=== PATIENT | female | born 1955 | race Caucasian/White ===

== ENCOUNTER → 2016-08-30 | Outpatient (CLI) | payer OTHER, BC ==
--- NOTE | 2016-08-30 16:06 | MR ---
EXAMINATION TYPE: MR shoulder RT wo con DATE OF EXAM: 08/30/2016 8:39 AM COMPARISON: NONE HISTORY: RT. shoulder pain, injury TECHNIQUE: Multiplanar, multisequence imaging of the shoulder is performed without contrast. FINDINGS: Rotator Cuff: There is fluid in the subacromial bursa and subdeltoid bursa. Some fluid appears to valentín round the supraspinatus tendon in the coronal plane. Acromioclavicular Joint: Glenohumeral Joint: Superior glenoid labrum is not well visualized. There is increased fluid adjacent . Tear should be considered. There is some thinning of the articular cartilage of the joint space com patible some osteoarthritic degenerative change. Biceps Tendon: The long head of biceps is in normal location within bicipital groove. Fluid appears t o surround the long head of the biceps tendon. Correlate for a moderate tendinosis of the long head o f the biceps tendon. Bone marrow signal: No focal abnormal marrow signal is appreciated. The acromioclavicular junction is hypertrophied which has some downward spurring which can contribute to some impingement of the supra spinatus tendon. Other: No muscle or tendon retraction is evident. No fatty infiltration of the muscles is evident IMPRESSION: Fluid surrounding the supraspinatus tendon. Severe tendinosis is favored. A perforation should be con sidered. No tendon or muscle retraction is evident. 2. Superior glenoid labral tear is likely present. 3. Osteoarthritic degenerative change. 4. Small joint effusion.
== END | disposition home or self-care (01) ==
LOC: RADMRIMAIN 07:33
PROVIDERS: ATTEND Orthopaedic Surgery
DX: M19.011 Primary osteoarthritis, right shoulder (principal)

== ENCOUNTER 2017-05-01 17:35 | Inpatient (IN) | payer BC ==
[2017-05-01 21:57] LABS: Glucose,Whole Blood 78 mg/dL (75-99)
[2017-05-01 22:26] VITALS: BMI 29.9
[2017-05-02] MEDS: ACETAMINOPHEN TAB 325 MG TAB PO PRN ×3 (00:28→18:09)
[2017-05-02] MEDS: SODIUM CHLORIDE 0.9% 1,000 ML IV SCH ×2 (00:34→16:49)
[2017-05-02 05:46] LABS: Basophils % (A) 0 %; CH 28.4; CHCM 32.9; Eosinophils # (A) 0.2 k/uL (0-0.7); Eosinophils % (A) 2 %; HCT 37.6 % (34.0-46.0); HDW 2.35; HGB 11.9 gm/dL (11.4-16.0); Luc # (Auto) 0.09; Luc % (Auto) 1; Lymphocytes # (A) 2.3 k/uL (1.0-4.8); Lymphocytes % (A) 35 %; MCH 27.5 pg (25.0-35.0); MCHC 31.7 g/dL (31.0-37.0); MCV 86.8 fL (80.0-100.0); Mean Platelet Volume 8.4; Monocytes # (A) 0.5 k/uL (0-1.0); Monocytes % (A) 7 %; Neutrophils # (A) 3.6 k/uL (1.3-7.7); Neutrophils % (A) 54 %; RBC 4.33 m/uL (3.80-5.40); RDW 15.4 % (11.5-15.5); WBC 6.6 k/uL (3.8-10.6); WBC (Perox) 6.53
[2017-05-02 05:53] LABS: Anion Gap 13 mmol/L; Blood Urea Nitrogen 15 mg/dL (7-17); Carbon Dioxide 21 mmol/L (22-30); Chloride 106 mmol/L (98-107); Glucose 100 mg/dL (74-99); Non-African American GFR(MDRD) >60 (>60 ml/min/1.73 sqM); Potassium 4.1 mmol/L (3.5-5.1); Sodium 140 mmol/L (137-145)
[2017-05-02] MEDS ORDERED: FUROSEMIDE 10 MG/ML 4 ML VIAL IV SCH (08:00)
[2017-05-02] MEDS: METOPROLOL TARTRATE 50 MG TAB PO SCH ×2 (08:02→21:02)
--- NOTE | 2017-05-02 08:34 | XR ---
EXAMINATION TYPE: XR chest 2V DATE OF EXAM: 05/02/2017 COMPARISON: Prior chest x-ray 12/22/2015 HISTORY: Chest pain TECHNIQUE: Frontal and lateral views of the chest are obtained. FINDINGS: There is some improvement in the interstitium, aeration as compared to previous exam. No e vident pneumothorax or pleural effusion. Cardiomediastinal silhouette, pulmonary vascularity and jessica are stable, heart size thought to be borderline enlarged. Minimal patchy basilar atelectatic changes suspected. There are overlying cardiac leads. IMPRESSION: Improvement in aeration.
--- NOTE | 2017-05-02 10:09 | P.PN ---
Progress Note - Text the patient was transferred from [facility] with symptoms of progressive fatigue, dyspnea and chest discomfort. Her cardiac enzymes showed no evidence of abnormalities. She was in atrial fibrillation with a rapid ventricular response. The patient has a prior history of atrial flutter ablation, underwent cardioversion in 2014. Her cardiac catheterization in 2004 showed no evidence of obstructive disease and her systolic function was normal. She was last seen in our office in February 2016. She has been complaining of progressive fatigue, dyspnea and unsteadiness.she has some palpitations recently but it is unclear if she has been back in atrial fibrillation. physical examination: Lungs clear heart irregular irregular S1-S2 no S3 Abdomen soft nontender Extremities no edema Impression: 1. Atrial fibrillation 2. Hypertension Plan: Her echocardiogram showed a normal systolic function and there is no significant lab abnormality . I have recommended proceed with CORINNE guided cardioversion. The risks and the complications were discussed with the patient. Depending on her progress further recommendations will be made.
[2017-05-02] MEDS ORDERED: SODIUM CHLORIDE 0.9% 1,000 ML IV ONE (13:07)
[2017-05-02] MEDS ORDERED: LIDOCAINE 1% INJ 10MG/ML (20 ML MDV) ONE (13:10)
[2017-05-02] MEDS ORDERED: PROPOFOL 10 MG/ML 20 ML VIAL IV ONE (13:10)
--- NOTE | 2017-05-02 13:17 | P.HPIM ---
History of Present Illness Patient was admitted here for the CORINNE cardioversion. Patient is already on anticoagulation with a new anticoagulants. Patient presented to [facility] with the symptoms of severe fatigue lightheadedness patient is in distress is complaining of palpitations now comparing of lightheadedness presently. Because of her continued symptoms from atrial fibrillation patient is undergoing cardioversion with CORINNE guidance. Patient denied any fever, chills , nausea, vomiting. Chest x-ray showed did not show any significant abnormality and her provides are essentially within normal limits. Reviewed medical records from [facility] Review of Systems REVIEW OF SYSTEMS: CONSTITUTIONAL: No fever HEENT: No recent visual problems or hearing problems. Denied any sore throat. CARDIOVASCULAR: No chest pain, orthopnea, PND, no palpitations, no syncope. PULMONARY: No shortness of breath, no cough, no hemoptysis. GASTROINTESTINAL: No diarrhea, no nausea, no vomiting, no abdominal pain. Normoactive bowel sounds. NEUROLOGICAL: No headaches, no weakness, no numbness. HEMATOLOGICAL: Denies any bleeding or petechiae. GENITOURINARY: Denies any burning micturition, frequency, or urgency. MUSCULOSKELETAL/RHEUMATOLOGICAL: Denies any joint pain, swelling, or any muscle pain. ENDOCRINE: Denies any polyuria or polydipsia. The rest of the 14-point review of systems is negative. Past Medical History Past Medical History: Atrial Fibrillation, Chest Pain / Angina, Heart Failure, Hypertension, Osteoarthritis (OA), Sleep Apnea/CPAP/BIPAP Additional Past Medical History / Comment(s): SLEEP APNEA, DJD, ARTHRITIS IN KNEES, vertigo on occasion, PUD, History of Any Multi-Drug Resistant Organisms: None Reported Past Surgical History: Appendectomy, Heart Catheterization, Hysterectomy, Joint Replacement, Orthopedic Surgery Additional Past Surgical History / Comment(s): PARTIAL HYSTERECTOMY, 7 KNEE SURGERIES= 0NE LEFT KNEE ARTHROSCOPY, and 5 RT KNEE ARTHROSCOPIES THEN TOTAL RT KNEE DONE & THEN TOTAL REVISION TO RT KNEE , PLACIDO. ACHILLES TENDON SURGERY- HAS SCREWS IN PLACIDO. HEELS, EYE SURGERY A CHILD(STRABISMUS), DENTAL IMPLANT BOTTOM LT.COLONOSCOPY WITH RANDOM BX-BENIGN, right shoulder sx x2 Past Anesthesia/Blood Transfusion Reactions: Previous Problems w/ Anesthesia, Family History of Problems w/ Anesthesia Additional Past Anesthesia/Blood Transfusion Reaction / Comment(s): PT & HER MOTHER HAVE HX PONV Past Psychological History: No Psychological Hx Reported Additional Psychological History / Comment(s): Pt resides with her spouse. She is independent. She uses no assistive device. She drives. Smoking Status: Never smoker Past Alcohol Use History: None Reported Past Drug Use History: None Reported - Past Family History Mother Family Medical History: Congestive Heart Failure (CHF), Diabetes Mellitus Additional Family Medical History / Comment(s): IDDM. Mother at age 73yrs. Father Family Medical History: Diabetes Mellitus Additional Family Medical History / Comment(s): Father in his late 60's or early 70's. Medications and Allergies Home Medications Medication Instructions Recorded Confirmed Type Multivit-Min/FA/Lycopene/Lut 1 tab PO DAILY 02/16/15 05/02/17 History [Centrum Silver Tablet] Rivaroxaban [Xarelto] 20 mg PO DAILY 02/16/15 05/02/17 History Lisinopril [Zestril] 5 mg PO DAILY #30 tab 02/21/15 05/02/17 Rx Potassium Chloride ER [K-Dur 20] 40 meq PO DAILY #30 tab 02/21/15 05/02/17 Rx Furosemide [Lasix] 40 mg PO BID 12/22/15 05/02/17 History Aspirin 81 mg PO DAILY #30 chew 12/23/15 05/02/17 Rx Metoprolol Tartrate [Lopressor] 25 mg PO BID #60 tab 12/23/15 05/02/17 Rx Allergies Allergy/AdvReac Type Severity Reaction Status Date / Time No Known Allergies Allergy Verified 12/22/15 10:07 Physical Exam Vitals: Vital Signs Temp Pulse Pulse Resp BP Pulse Ox 05/02/17 13:08 84 18 131/62 100 05/02/17 11:37 97.1 F L 94 20 139/69 99 05/02/17 10:37 97 F L 114 H 20 143/86 100 05/02/17 08:00 97 F L 114 H 20 143/86 100 05/02/17 04:00 96.7 F L 113 H 18 132/77 100 05/02/17 00:00 97.8 F 110 H 18 121/63 100 05/01/17 22:04 97.1 F L 131 H 18 121/81 98 Intake and Output 05/01/17 05/02/17 05/02/17 22:59 06:59 14:59 Intake Total 0 Balance 0 Intake: IV 0 Other: Weight 80.5 kg PHYSICAL EXAMINATION: GENERAL: The patient is alert and oriented x3, not in any acute distress. Well developed, well nourished. HEENT: Pupils are round and equally reacting to light. EOMI. No scleral icterus. No conjunctival pallor. Normocephalic, atraumatic. No pharyngeal erythema. No thyromegaly. CARDIOVASCULAR: S1 and S2 present. No murmurs, rubs, or gallops. Irregularly irregular rhythm PULMONARY: Chest is clear to auscultation, no wheezing or crackles. ABDOMEN: Soft, nontender, nondistended, normoactive bowel sounds. No palpable organomegaly. MUSCULOSKELETAL: No joint swelling or deformity. EXTREMITIES: No cyanosis, clubbing, or pedal edema. NEUROLOGICAL: Gross neurological examination did not reveal any focal deficits. SKIN: No rashes. Results CBC & Chem 7: 05/02/17 05:32 05/02/17 05:32 Labs: Abnormal Lab Results - Last 24 Hours (Table) 05/02/17 Range/Units 05:32 Carbon Dioxide 21 L (22-30) mmol/L Glucose 100 H (74-99) mg/dL Thrombosis Risk Factor Assmnt - Choose All That Apply Any of the Below Risk Factors Present?: Yes Each Factor Represents 1 point: Medical pt on bed rest, Obesity (BMI >25) Other Risk Factors: Yes Each Risk Factor Represents 2 Points: Age 61-74 years Thrombosis Risk Factor Assessment Total Risk Factor Score: 4 Thrombosis Risk Factor Assessment Level: Moderate Risk Assessment and Plan Plan: #1 atrial fibrillation with rapid ventricular rate: Patient is severely symptomatic is going for deviated cardioversion today. And is on anticoagulation now with Xeralto #2 hypertension #3 osteoarthritis #4 obstructive sleep apnea. Patient will undergo cardioversion and we'll reevaluate after cardioversion no signs or symptoms of sepsis as an infection at this point of time. We'll continue rest of her home medications which are is appropriate
[2017-05-02] MEDS ORDERED: SODIUM CHLORIDE 0.9% 1,000 ML IV SCH (13:30)
--- NOTE | 2017-05-02 14:07 | CE ---
CARDIAC ELECTROPHYSIOLOGY REPORT CARDIOVERSION PROCEDURE NOTE: INDICATION: Atrial fibrillation. PROCEDURE: After explaining the procedure to the patient, its risks and complication, blood pressure, heart rate, O2 saturation was monitored. After obtaining sedation per Anesthesia Department and performing transesophageal echocardiogram, attempt to cardiovert to sinus mechanism using 200, 300 and 360 joules x2 synchronized were unsuccessful in restoring normal sinus rhythm. There was no immediate complication. HANNAH / JACINTAN: [id number] /
--- NOTE | 2017-05-02 14:31 | ECHOT ---
TRANSESOPHAGEAL ECHOCARDIOGRAM INDICATION FOR EVALUATION: Left atrial appendage. PROCEDURE: After explaining the procedure to the patient with the risks and complication, blood pressure, heart rate, O2 saturation was monitored. The throat was sprayed with Cetacaine. She received sedation per Anesthesia Department. The probe was introduced into the esophagus without difficulty. Images were obtained. Following that, the probe was removed. There was no immediate complication. FINDINGS: Biatrial enlargement was noted. Left atrial appendage is normal. Left ventricular size and systolic function normal. The aortic valve, mitral valve, tricuspid and pulmonic valve appears to be normal. Descending thoracic aorta appears to be normal. No pericardial effusion was noted. Contrast bubble study revealed no evidence of shunting across the interatrial septum. Doppler, pulse wave and color Doppler obtained, revealed mild mitral, tricuspid with trace pulmonic regurgitation. There was no shunting by color Doppler study. CONCLUSION: 1. Biatrial enlargement with normal appearance of the left appendage. 2. Normal left ventricular size and systolic function. 3. Mild mitral and tricuspid regurgitation. 4. Trace pulmonic regurgitation. 5. No evidence shunting across the interatrial septum. MMODL / IJN: [id number] /
[2017-05-02] MEDS: AMIODARONE 200 MG TAB PO SCH ×2 (16:43→21:02)
[2017-05-02] MEDS: POTASSIUM CHLORIDE ER 20 MEQ TAB.ER PO SCH (16:43)
[2017-05-02] MEDS: FUROSEMIDE 40 MG TAB PO SCH (16:43)
[2017-05-02] MEDS ORDERED: RIVAROXABAN 10 MG TAB PO SCH (17:30)
[2017-05-02] MEDS ORDERED: BUTALB/APAP/CAFF 50-325-40MG TAB PO PRN (22:05)
[2017-05-03 06:06] VITALS: TEMP 96.9
[2017-05-03 06:40] LABS: Anion Gap 12 mmol/L; Blood Urea Nitrogen 10 mg/dL (7-17); Calcium 9.1 mg/dL (8.4-10.2); Carbon Dioxide 23 mmol/L (22-30); Chloride 105 mmol/L (98-107); Glucose 95 mg/dL (74-99); Non-African American GFR(MDRD) >60 (>60 ml/min/1.73 sqM); Potassium 4.1 mmol/L (3.5-5.1); Sodium 140 mmol/L (137-145)
[2017-05-03] MEDS: POTASSIUM CHLORIDE ER 20 MEQ TAB.ER PO SCH (09:03)
[2017-05-03] MEDS: AMIODARONE 200 MG TAB PO SCH (09:03)
[2017-05-03] MEDS: FUROSEMIDE 40 MG TAB PO SCH (09:04)
[2017-05-03] MEDS: METOPROLOL TARTRATE 50 MG TAB PO SCH (09:04)
[2017-05-03 09:17] VITALS: RESP 16
--- NOTE | 2017-05-03 10:47 | P.PN ---
Subjective Progress Note Date: 05/03/17 Principal diagnosis: Atrial fibrillation This is a pleasant 62-year-old female who follows with Dr. camarillo on in the office, she was transferred here initially from [facility] where she presented with symptoms of fatigue and dyspnea. Cardiac enzymes were negative 3. Patient was found to be in atrial fibrillation with a rapid ventricular response, she underwent a CORINNE with attempted cardioversion yesterday. She continues to be in atrial fibrillation this morning her rate is under adequate control. Overall she feels well. Blood pressure 124/70 with a heart rate in the 80s, 99% on room air. Sodium 140, potassium 4.1, BUN and creatinine 0.6. From cardiology's perspective, she has been advised to be up ambulating in the hernandez this morning, she may be able to be discharged home today. A follow-up appointment will be made with Dr. Victor in the office in 2 weeks. Patient will be discharged home on amiodarone 400 mg one tablet by mouth twice a day for one week and we will decrease that to 200 mg one tablet by mouth twice a day. She will continue on xarelto 20 mg one tablet by mouth daily. We will also resume her lisinopril 5 mg daily and continue the metoprolol tartrate 50 mg one tablet by mouth twice a day. Objective - Vital Signs Vital signs: Vital Signs Temp 96.9 F L 05/03/17 04:00 Pulse 83 05/03/17 08:00 Resp 16 05/03/17 08:00 BP 124/71 05/03/17 08:00 Pulse Ox 99 05/03/17 08:00 Intake & Output 05/02/17 05/03/17 05/03/17 18:59 06:59 18:59 Intake Total 290 275 Output Total 1000 Balance 290 -1000 275 Weight 99.5 kg Intake: IV 50 Oral 240 275 Output: Urine 1000 Other: Voiding Method Bedside Commode - Exam PHYSICAL EXAMINATION: HEENT: Head is atraumatic, normocephalic. Pupils equal, round. Neck is supple. There is no elevated jugular venous pressure. HEART EXAMINATION: Heart S1 and S2 irregularly irregular CHEST EXAMINATION: Lungs are clear to auscultation and precussion. No chest wall tenderness is noted on palpation or with deep breathing. ABDOMEN: Soft, nontender. Bowel sounds are heard. No organomegaly noted. EXTREMITIES: 2+ peripheral pulses with no evidence of peripheral edema and no calf tenderness noted. NEUROLOGIC patient is awake, alert and oriented -3. . - Labs CBC & Chem 7: 05/02/17 05:32 05/03/17 06:03 Assessment and Plan (1) Paroxysmal a-fib Status: Acute (2) HTN (hypertension) Status: Acute Plan: From cardiology's perspective, patient may be able to be discharged home today. We will continue amiodarone 400 mg one tablet by mouth twice a day for one week then decrease that to 200 mg twice a day. Continue Xarelto 20 mg daily. We'll make her a follow-up appointment with Dr. Victor in the office in 2 weeks. DNP note has been reviewed, I agree with a documented findings and plan of care. Patient was seen and examined.
[2017-05-03 16:21] VITALS: BP 118/78; PULSE 89
--- NOTE | 2017-05-04 01:33 | P.DS ---
Providers Date of admission: 05/01/17 21:33 Expected date of discharge: 05/03/17 Attending physician: Saud Link Consults: 05/01/17 23:24 Consult Physician Urgent Consulting Provider: José Riojas Consult Reason/Comments: chest pain Do you want consulting provider notified?: Yes, Notify in am Primary care physician: [facility] Course: Discharge diagnosis #1 paroxysmal atrial fibrillation with rapid ventricular rate: Status post cardioversion which was unsuccessful to convert to sinus rhythm. And is on anticoagulation now with Xeralto. He was started on amiodarone #2 hypertension #3 osteoarthritis #4 obstructive sleep apnea. Patient presented to [facility] with the symptoms of severe fatigue lightheadedness patient is in distress is complaining of palpitations Because of her continued symptoms from atrial fibrillation patient is undergoing cardioversion with CORINNE guidance. Patient denied any fever, chills, nausea, vomiting. Chest x-ray showed did not show any significant abnormality and her provides are essentially within normal limits. Reviewed medical records from [facility]. Patient was admitted here for the CORINNE cardioversion. Patient is already on anticoagulation with a new anticoagulants. Patient underwent CORINNE with cardioversion but patient reverted back to a regular rhythm. Patient was started on amiodarone 400 mg twice a day for week and followed by 200 mg twice a day as per cardiology. Patient otherwise denied any complaints of lightheadedness or dizziness at this time. Patient was cleared for discharged from cardiology standpoint. Discharge physical examination was done Patient Condition at Discharge: Good Plan - Discharge Summary New Discharge Prescriptions: New Amiodarone [Cordarone] 400 mg PO BID #60 tab Metoprolol Tartrate [Lopressor] 50 mg PO BID #60 tab Continue Rivaroxaban [Xarelto] 20 mg PO DAILY Multivit-Min/FA/Lycopene/Lut [Centrum Silver Tablet] 1 tab PO DAILY Potassium Chloride ER [K-Dur 20] 40 meq PO DAILY #30 tab Lisinopril [Zestril] 5 mg PO DAILY #30 tab Furosemide [Lasix] 40 mg PO BID Aspirin 81 mg PO DAILY #30 chew Discontinued Metoprolol Tartrate [Lopressor] 25 mg PO BID #60 tab Discharge Medication List Multivit-Min/FA/Lycopene/Lut [Centrum Silver Tablet] 1 tab PO DAILY 02/16/15 [ History] Rivaroxaban [Xarelto] 20 mg PO DAILY 02/16/15 [History] Lisinopril [Zestril] 5 mg PO DAILY #30 tab 02/21/15 [Rx] Potassium Chloride ER [K-Dur 20] 40 meq PO DAILY #30 tab 02/21/15 [Rx] Furosemide [Lasix] 40 mg PO BID 12/22/15 [History] Aspirin 81 mg PO DAILY #30 chew 12/23/15 [Rx] Amiodarone [Cordarone] 400 mg PO BID #60 tab 05/03/17 [Rx] Metoprolol Tartrate [Lopressor] 50 mg PO BID #60 tab 05/03/17 [Rx] Follow up Appointment(s)/Referral(s): Caro Victor MD [STAFF PHYSICIAN] - 05/22/17 3:30 pm Patient Instructions/Handouts: Transesophageal Echocardiogram (DC), Cardioversion (DC) Discharge Disposition: HOME SELF-CARE
[2017-05-04] MEDS ORDERED: LISINOPRIL 5 MG TAB PO SCH (09:00)
== END 2017-05-03 16:37 | disposition home or self-care (01) | DRG 310 ==
LOC: 6SEL 21:33
PROVIDERS: ADMIT Hospitalist; ATTEND Hospitalist
PROC: B246ZZ4 Ultrasonography of Right and Left Heart, Transesophageal (ICD-10-PCS; principal; 2017-05-02 11:25)
DX: I48.0 Paroxysmal atrial fibrillation (principal); I11.0 Hypertensive heart disease with heart failure; I50.9 Heart failure, unspecified; G47.33 Obstructive sleep apnea (adult) (pediatric); M17.0 Bilateral primary osteoarthritis of knee; Z79.01 Long term (current) use of anticoagulants; Z79.82 Long term (current) use of aspirin; Z79.899 Other long term (current) drug therapy; Z96.651 Presence of right artificial knee joint; Z82.49 Family history of ischemic heart disease and other diseases of the circulatory system
CPT/HCPCS: 71020; 80048; 85025; 93312; 93320; 93325

== ENCOUNTER 2017-05-31 06:04 | Day surgery (SDC) | payer BC ==
[2017-05-29 10:14] VITALS: BMI 38.8
[~2017-05-31 06:04] MED LIST: LACTATED RINGERS 1,000 ML IV SCH; SODIUM CHLORIDE 0.9% 1,000 ML IV SCH
[2017-05-31] MEDS ORDERED: PROPOFOL 10 MG/ML 20 ML VIAL IV ONE (06:45)
[2017-05-31 07:28] VITALS: TEMP 97
[2017-05-31] MEDS ORDERED: SODIUM CHLORIDE 0.9% 1,000 ML IV SCH (07:30)
--- NOTE | 2017-05-31 07:32 | CE ---
CARDIAC ELECTROPHYSIOLOGY REPORT INDICATION: Atrial fibrillation. PROCEDURE: After explaining the procedure to the patient, it's risks and complication and after obtaining sedation state by Anesthesia Department, synchronized biphasic cardioversion using 250, 300 and 360 joules were performed with inability to restore sinus mechanism. There was no immediate complication. HANNAH / EVAN: [id number] /
[2017-05-31 07:56] VITALS: BP 121/65; PULSE 70; RESP 18
[2017-05-31] MEDS ORDERED: LISINOPRIL 5 MG TAB PO SCH (09:00)
[2017-05-31] MEDS ORDERED: POTASSIUM CHLORIDE ER 20 MEQ TAB.ER PO SCH (09:00)
[2017-05-31] MEDS ORDERED: LUT PO SCH (09:00)
[2017-05-31] MEDS ORDERED: MULTIVIT MIN PO SCH (09:00)
[2017-05-31] MEDS ORDERED: NON-FORMULARY DRUG (Rivaroxaban [Xarelto] 20 MG) PO SCH (09:00)
[2017-05-31] MEDS ORDERED: FUROSEMIDE 40 MG TAB PO SCH (09:00)
[2017-05-31] MEDS ORDERED: LYCOPENE PO SCH (09:00)
[2017-05-31] MEDS ORDERED: [UNRECOGNIZED DRUG - OTHER] PO SCH (09:00)
[2017-05-31] MEDS ORDERED: METOPROLOL TARTRATE 50 MG TAB PO SCH (09:00)
== END 2017-05-31 09:01 | disposition home or self-care (01) ==
LOC: CATHCVL 06:04
PROVIDERS: ATTEND Internal Medicine Interventional Cardiology
DX: I48.1 Persistent atrial fibrillation (principal); I10 Essential (primary) hypertension; Z79.01 Long term (current) use of anticoagulants; Z79.899 Other long term (current) drug therapy
CPT/HCPCS: 92960; J2704

== ENCOUNTER → 2017-08-14 | Outpatient (CLI) | payer BC ==
[2017-08-14 13:48] LABS: HCT 38.4 % (34.0-46.0); HGB 12.4 gm/dL (11.4-16.0); MCH 28.3 pg (25.0-35.0); MCHC 32.2 g/dL (31.0-37.0); Mean Platelet Volume 8.4; Platelet Count 290 k/uL (150-450); RBC 4.37 m/uL (3.80-5.40); RDW 14.8 % (11.5-15.5); WBC 9.1 k/uL (3.8-10.6)
[2017-08-14 14:05] LABS: Anion Gap 12 mmol/L; Blood Urea Nitrogen 15 mg/dL (7-17); Calcium 9.5 mg/dL (8.4-10.2); Carbon Dioxide 28 mmol/L (22-30); Chloride 100 mmol/L (98-107); Glucose 105 mg/dL (74-99); Potassium 4.4 mmol/L (3.5-5.1); Sodium 140 mmol/L (137-145)
== END | disposition home or self-care (01) ==
LOC: LABWHC1 13:25
PROVIDERS: ATTEND Internal Medicine Clinical Cardiac Electrophysiology
DX: I48.1 Persistent atrial fibrillation (principal)
CPT/HCPCS: 36415; 80048; 85027

== ENCOUNTER 2017-08-21 13:54 | Day surgery (SDC) | payer BC ==
[~2017-08-21 13:54] MED LIST changes: -LACTATED RINGERS 1,000 ML IV SCH
[2017-08-21] MEDS ORDERED: ONDANSETRON 4 MG/2 ML VIAL ONE (15:51)
[2017-08-21] MEDS ORDERED: ePHEDrine SULFATE/0.9% NACL/PF 50 MG/5 ML SYRINGE IV ONE (16:00)
[2017-08-21] MEDS ORDERED: LIDOCAINE 1% INJ 10MG/ML (20 ML MDV) ONE (16:00)
[2017-08-21] MEDS ORDERED: SUCCINYLCHOLINE CHLORIDE 100 MG/5 ML SYR IV ONE (16:00)
[2017-08-21] MEDS ORDERED: PROTAMINE SULFATE 10 MG/ML 5 ML VIAL IV ONE (16:00)
[2017-08-21] MEDS ORDERED: MIDAZOLAM 2 MG/2 ML VIAL ONE (16:00)
[2017-08-21] MEDS ORDERED: fentaNYL (PF) 50 MCG/ML 2 ML AMP ONE (16:00)
[2017-08-21] MEDS ORDERED: HEPARIN SODIUM,PORCINE 5,000 UNIT/ML 1 ML VIAL ONE (16:00)
[2017-08-21] MEDS ORDERED: PHENYLEPHRINE-0.9% NACL SYG 1 MG/10 ML SYRINGE ONE (16:00)
[2017-08-21] MEDS ORDERED: PROPOFOL 10 MG/ML 20 ML VIAL IV ONE (16:00)
[2017-08-21] MEDS ORDERED: LIDOCAINE 2% INJ 20 MG/ML SQ ONE (16:40)
[2017-08-21] MEDS ORDERED: HEPARIN SOD,PORK IN 0.45% NACL 25,000 UNIT in 0.45% NACL 1 500ML.BAG IV ONE (16:55)
[2017-08-21 18:29] LABS: HCT 32.9 % (34.0-46.0); HGB 11.1 gm/dL (11.4-16.0); MCH 28.9 pg (25.0-35.0); MCHC 33.8 g/dL (31.0-37.0); MCV 85.7 fL (80.0-100.0); Mean Platelet Volume 7.9; Platelet Count 254 k/uL (150-450); RBC 3.84 m/uL (3.80-5.40); RDW 13.9 % (11.5-15.5)
[2017-08-21] MEDS ORDERED: IOHEXOL 350 MG/ML (PER ML) 100ML BTL INJ ONE (19:12)
[2017-08-21] MEDS ORDERED: ACETAMINOPHEN IV (For NPO) 1,000 MG in EMPTY BAG 1 BAG IVPB ONE (19:18)
[2017-08-21] MEDS ORDERED: ACETAMINOPHEN TAB 325 MG TAB PO PRN (19:18)
--- NOTE | 2017-08-21 19:43 | P.PCN ---
Preoperative Diagnosis: Indication for procedure Drug refractory atrial fibrillation, persistent Procedures performed (PVI - CRYO Ablation) Invasive hemodynamic monitoring while general anesthesia, right femoral arterial line for monitoring and sampling Comprehensive diagnostic EP study with attempted arrhythmia induction CS pacing and recording Catheter the mapping of the tachycardia (NOT 3D mapping) Intracardiac echocardiography Pulmonary vein isolation with transseptal and comprehensive EPS, 30157 Electrical cardioversion Procedure details Patient was brought to the EP lab in a fasting state. Written informed consent was obtained prior to the procedure. Procedure performed under general anesthesia After initial muscle relaxant use, muscle relaxants were not given thereafter in order to assess phrenic nerve during procedure Patient prepped and draped as per protocol Full cryo-set up with standard preparation of the cryoablation tools done Femoral Venous access obtained on the right and left groins Sheaths placed Diagnostic catheters for the high right atrium, phrenic nerve stimulation and pacing, His bundle, RV and coronary sinus placed Intracardiac echo catheter placed Long sheath placed in the right atrium Left and right transseptal catheterization performed under intracardiac echo guidance Intravenous heparin with aCT above 300 Later, catheter positioning and balloon positioning under intracardiac echo Baseline measurements Patient was in atrial fibrillation start the study. Post cardioversion sinus cycle length 650 ms. We'll 161 ms QRS 91 ms QT 352 ms. HV interval 52 ms Comprehensive diagnostic EP study with drug infusion Atrial pacing performed from the high right atrium and the coronary sinus Mapping of the Farhan sinus right atrium and left atrium The left atrial roof appeared to be in fine atrial fibrillation during mapping with the achieve catheter Transseptal catheterization performed RA pressure 13/8/11 LA pressure 29/2/17 Transseptal catheterization performed with standard sheath. The cryoablation sheath was then placed with an over the wire exchange without any acute complications. All 4 pulmonary veins were isolated in the following sequence: Left superior followed by left inferior followed by right superior followed by right inferior The cryo-ablation balloon was placed at the os of each vein 1.5 mL of IV dye was injected to confirm an occluded vein Goal during cryoablation was to achieve -30C in the first 30 seconds. If not the balloon was repositioned to obtain this result After completion of Cryoblation with durations from 180-240 seconds, entrance block was confirmed with the Attain circular catheter in a roving fashion around the antrum of the pulmonary veins Phrenic nerve pacing was performed from the SVC, right innominate vein area and diaphragm voltage was monitored as well as manually Parameter goals for each cryo freeze -30C by 30 seconds -40C by 60 seconds Mediated between minus 40-55 Thaw time greater than 10 seconds Balloon visualized by intracardiac echo to ensure that the proximal one third was within the left atrium/antrum Common left-sided os with large left superior and large left inferior pulmonary veins noted Left superior pulmonary vein Single four-minute cryoablation with complete isolation Left inferior pulmonary vein Single cryoablation lesion for 4 minutes with complete isolation Right superior pulmonary vein, during phrenic nerve pacing 2 cryoablation lesions on at 107 seconds and the other 125 seconds Nahum the esophageal circumflex a probe There was a suggestion of weakening of the diaphragm and hence the first lesion was aborted No problems subsequently Complete isolation The roof of the left atrium appeared to be fibrillating Right inferior pulmonary vein, during phrenic nerve pacing 2 cryoablation's for 2 minutes each limited by esophageal cooling Complete isolation At the end of the procedure the Achieve catheter was once again used to check for entrance block Phrenic nerve stimulation was performed to confirm diaphragmatic stimulation the end of the procedure Cine fluoroscopy was performed at the very end of the procedure to confirm movement of both diaphragms with inspiration and expiration At the end of the procedure the patient was extubated Heparin was reversed Venous sheaths were removed and hemostasis assured Successful electrical cardioversion with 360 J biphasic shock to sinus rhythm at the end of the procedure Result Successful pulmonary vein isolation using cryo-ablation Complete entrance block in all 4 veins confirmed No evidence for phrenic nerve injury Right-sided esophagus, transient esophageal cooling noted with right-sided lesions Plan Reduce flecainide scars that reduce metoprolol to 25 mg twice daily Start flecainide 100 mg twice daily If she has recurrence of atrial fibrillation in the left atrium should be mapped in particular the roof in the anterior wall Anesthesia: GETA Condition: stable
[2017-08-21] MEDS ORDERED: RIVAROXABAN 10 MG TAB PO SCH (21:00)
[2017-08-21] MEDS: LACTATED RINGERS 1,000 ML IV SCH ×2 (21:08→22:46)
[2017-08-21] MEDS: FLECAINIDE 50 MG TAB PO SCH (21:28)
[2017-08-21] MEDS: METOPROLOL TARTRATE 25 MG TAB PO SCH (21:28)
[2017-08-21 21:42] VITALS: BMI 38.9
[2017-08-21 21:58] LABS: HCT 38.2 % (34.0-46.0); HGB 12.7 gm/dL (11.4-16.0); MCH 28.7 pg (25.0-35.0); MCHC 33.2 g/dL (31.0-37.0); MCV 86.6 fL (80.0-100.0); Mean Platelet Volume 7.8; Platelet Count 222 k/uL (150-450); RBC 4.41 m/uL (3.80-5.40); WBC 14.9 k/uL (3.8-10.6)
[2017-08-22] MEDS: METOPROLOL TARTRATE 25 MG TAB PO SCH (08:23)
[2017-08-22] MEDS: FLECAINIDE 50 MG TAB PO SCH (08:24)
[2017-08-22] MEDS: HYDROcodone/APAP 5-325MG 1 EACH TAB PO PRN ×2 (08:24→13:08)
--- NOTE | 2017-08-22 08:45 | US ---
EXAMINATION TYPE: US groin LT DATE OF EXAM: 08/22/2017 COMPARISON: NONE CLINICAL HISTORY: hematoma vs pseudoaneurysm. Patient states having bilateral groin punctures yesterd ay. No palpable area felt. Patient states just being tender. Patient was told something could have been punctured during the procedure. Left groin scanned. No prominent masses or lesions seen. Contralateral image taken. Ultrasound images saved show no suspicious fluid collection or hematoma. There is no suspicious outpo uching or pseudoaneurysm identified. IMPRESSION: No ultrasound evidence of complication related to groin puncture yesterday.
[2017-08-22] MEDS ORDERED: FUROSEMIDE 40 MG TAB PO SCH (09:00)
[2017-08-22] MEDS ORDERED: LISINOPRIL 5 MG TAB PO SCH (09:00)
[2017-08-22] MEDS ORDERED: POTASSIUM CHLORIDE ER 20 MEQ TAB.ER PO SCH (09:00)
[2017-08-22 11:48] VITALS: RESP 19
[2017-08-22] MEDS ORDERED: IBUPROFEN 400 MG TAB PO PRN (12:45)
--- NOTE | 2017-08-22 13:01 | P.DS ---
Providers Attending physician: Jose Luis Parker Primary care physician: [facility] Course: Patient is complaining of pain in the right groin. There is no swelling there is no hematoma there is no bruising. Access site under the skin is tender not the deep tissues, on examination No chest discomfort no pleuritic chest discomfort no dizziness lightheadedness or palpitations Telemetry shows sinus rhythm normal heart rates On examination heart sounds are normal breath sounds are clear No rhonchi no crackles normal S1 normal S2 no murmurs no gallops no JVD abdomen soft extremities are warm both right and left groins are tender in the area of the skin but not in the deep tissue and there is no swelling no hematoma minimal bruising Impression Persistent atrial fibrillation, symptomatic Failed prior therapies Successful and complete pulmonary vein isolation, cryoablation isolation of all 4 veins She has left common veins, pulmonary Successful electrical cardioversion and institution of flecainide 200 mg twice daily Plan Discharge home today by 6 PM, flecainide 100 mg twice daily, reduce the dose of metoprolol to 25 mg twice daily and pain medications. Prescription given Follow-up with Dr. Dr. Victor in 1 week Patient Condition at Discharge: Stable Plan - Discharge Summary Discharge Rx Participant: No New Discharge Prescriptions: New Flecainide [Tambocor] 100 mg PO Q12HR #30 tablet Metoprolol Tartrate 25 mg PO BID #30 tab Discontinued Metoprolol Tartrate [Lopressor] 50 mg PO BID #60 tab No Action Rivaroxaban [Xarelto] 20 mg PO HS Multivit-Min/FA/Lycopene/Lut [Centrum Silver Tablet] 1 tab PO DAILY Lisinopril [Zestril] 5 mg PO DAILY #30 tab Furosemide [Lasix] 40 mg PO DAILY Potassium Chloride ER [K-Dur 20] 40 meq PO DAILY Discharge Medication List Multivit-Min/FA/Lycopene/Lut [Centrum Silver Tablet] 1 tab PO DAILY 02/16/15 [ History] Rivaroxaban [Xarelto] 20 mg PO HS 02/16/15 [History] Lisinopril [Zestril] 5 mg PO DAILY #30 tab 02/21/15 [Rx] Furosemide [Lasix] 40 mg PO DAILY 12/22/15 [History] Potassium Chloride ER [K-Dur 20] 40 meq PO DAILY 08/11/17 [History] Flecainide [Tambocor] 100 mg PO Q12HR #30 tablet 08/21/17 [Rx] Metoprolol Tartrate 25 mg PO BID #30 tab 08/21/17 [Rx] Follow up Appointment(s)/Referral(s): Caro Victor MD [STAFF PHYSICIAN] - 1 Week Jewel Santiago MD [Primary Care Provider] - 2 Weeks Activity/Diet/Wound Care/Special Instructions: Post EP study - Ablation instructions 1. Keep access sites dry for 2 days. 2. No heavy lifting or straining for 2 days. 3. Avoid bending the hips repeatedly for 2 days. 4. You may go up and down stairs slowly Call if the following is noted 1. Bleeding, increasing swelling or pain at the access sites. 2. Increasing chest discomfort, especially upon taking a deep breath. 3. Increasing shortness of breath, at rest or with exertion. 4. Undue cough / phlegm 5. Difficulty or pain while swallowing. 6. Pain or change in color in the extremities. 7. Fever, chills, rigors. 8. Increasing headache or neurologic symptoms. 9. Dizziness, fainting, palpitations New medications Flecainide 100 mg twice daily Reduce metoprolol tartrate to 25 mg twice daily Continue Lasix, continue lisinopril continue xarelto Follow Dr. Victor in 1 week and follow with Dr. Santiago in 2 weeks Discharge Disposition: HOME SELF-CARE
[2017-08-22 15:26] VITALS: BP 112/61; PULSE 70; TEMP 97.5
== END 2017-08-22 18:46 | disposition home or self-care (01) ==
LOC: CATHEP 13:54 → 6SEL 19:43 → CATHEP 08-22 18:46
PROVIDERS: ATTEND Internal Medicine Clinical Cardiac Electrophysiology
DX: I48.1 Persistent atrial fibrillation (principal); Z79.01 Long term (current) use of anticoagulants; I11.0 Hypertensive heart disease with heart failure; I50.22 Chronic systolic (congestive) heart failure; Z79.899 Other long term (current) drug therapy
CPT/HCPCS: 92960; 93662; 93609; 93656; 85347; 85027; 76882; C1894 ×3; C1769 ×4; C1730 ×2; C1759; C1893; C1733; C1766; J2001 ×2; J2250; J2720; J1644 ×2; Q9967; J2405; J3010; J0131; J2370; J0330; J2704

== ENCOUNTER 2017-11-20 17:19 | Emergency (ER) | payer BC ==
[2017-11-20] MEDS ORDERED: IPRATROPIUM-ALBUTEROL 3 ML NEB INHALATION STA (17:57)
[2017-11-20] MEDS ORDERED: SODIUM CHLORIDE 0.9% 1,000 ML IV STA (17:57)
--- NOTE | 2017-11-20 18:03 | ED ---
SOB HPI - General Chief Complaint: Shortness of Breath Stated Complaint: Diff Breathing Time Seen by Provider: 11/20/17 17:41 Source: patient, RN notes reviewed Mode of arrival: wheelchair Limitations: no limitations - History of Present Illness Initial Comments: This is a 62-year-old female who states she had the onset of difficulty breathing with chest discomfort over last 4 days some dizziness chest heaviness. She has of a history of atrial fibrillation which is been cardioverted. She had some palpitations no other symptoms at this time. No cough or phlegm production no overt fevers chills or sweats. No other modifying factors she is not a smoker. No history of known lung disease again. MD Complaint: shortness of breath, chest pain - Related Data Home Medications Medication Instructions Recorded Confirmed Multivit-Min/FA/Lycopene/Lut 1 tab PO DAILY 02/16/15 11/20/17 [Centrum Silver Tablet] Rivaroxaban [Xarelto] 20 mg PO HS 02/16/15 11/20/17 Furosemide [Lasix] 40 mg PO DAILY 12/22/15 11/20/17 Potassium Chloride ER [K-Dur 20] 40 meq PO DAILY 08/11/17 11/20/17 Embrel 1 injection IM Q7D 11/20/17 Flecainide Acetate [Tambocor] 100 mg PO Q12HR 11/20/17 11/20/17 Leucovorin Calcium 5 mg PO Q7D 11/20/17 11/20/17 Methotrexate Sodium [Methotrexate] 12.5 mg PO Q7D 11/20/17 11/20/17 Previous Rx's Medication Instructions Recorded Lisinopril [Zestril] 5 mg PO DAILY #30 tab 02/21/15 Metoprolol Tartrate 25 mg PO BID #30 tab 08/21/17 Allergies Allergy/AdvReac Type Severity Reaction Status Date / Time No Known Allergies Allergy Verified 11/20/17 17:57 Review of Systems ROS Statement: Those systems with pertinent positive or pertinent negative responses have been documented in the HPI. ROS Other: All systems not noted in ROS Statement are negative. Past Medical History Past Medical History: Atrial Fibrillation, Chest Pain / Angina, Heart Failure, Hypertension, Osteoarthritis (OA), Sleep Apnea/CPAP/BIPAP Additional Past Medical History / Comment(s): See Dr Parker's H&P. hx: DJD, ARTHRITIS IN KNEES, placido shoulders and rt hand , vertigo on occasion, Peptic ulcer disease,"heart flutters" History of Any Multi-Drug Resistant Organisms: MRSA Date of last positivie culture/infection: 2002 MDRO Source:: lt arm Past Surgical History: Appendectomy, Section, Heart Catheterization, Hysterectomy, Joint Replacement, Orthopedic Surgery Additional Past Surgical History / Comment(s): PARTIAL HYSTERECTOMY, 7 KNEE SURGERIES= 0NE LEFT KNEE ARTHROSCOPY, and 5 RT KNEE ARTHROSCOPIES THEN TOTAL RT KNEE DONE & THEN TOTAL REVISION TO RT KNEE , PLACIDO. ACHILLES TENDON SURGERY- HAS SCREWS IN PLACIDO. HEELS, EYE SURGERY A CHILD(STRABISMUS), DENTAL IMPLANT BOTTOM LT., COLONOSCOPY WITH RANDOM BX-BENIGN, right shoulder sx x2 Past Anesthesia/Blood Transfusion Reactions: Previous Problems w/ Anesthesia, Family History of Problems w/ Anesthesia, Postoperative Nausea & Vomiting (PONV) Additional Past Anesthesia/Blood Transfusion Reaction / Comment(s): PT & HER MOTHER HAVE HX PONV Past Psychological History: No Psychological Hx Reported Smoking Status: Never smoker Past Alcohol Use History: None Reported Past Drug Use History: None Reported - Past Family History Mother Family Medical History: Congestive Heart Failure (CHF), Diabetes Mellitus Additional Family Medical History / Comment(s): IDDM. Mother at age 73yrs. Father Family Medical History: Diabetes Mellitus Additional Family Medical History / Comment(s): Father in his late 60's or early 70's. General Exam - General Exam Comments Initial Comments: This is a well-developed well-nourished awake alert oriented 3 female Limitations: no limitations General appearance: alert, in no apparent distress Head exam: Present: atraumatic, normocephalic, normal inspection Eye exam: Present: normal appearance, PERRL, EOMI. Absent: scleral icterus, conjunctival injection, periorbital swelling ENT exam: Present: normal exam, mucous membranes moist Neck exam: Present: normal inspection. Absent: tenderness, meningismus, lymphadenopathy Respiratory exam: Present: chest wall tenderness, decreased breath sounds. Absent: respiratory distress, wheezes, rales, rhonchi, stridor Cardiovascular Exam: Present: regular rate, normal rhythm, normal heart sounds. Absent: systolic murmur, diastolic murmur, rubs, gallop, clicks GI/Abdominal exam: Present: soft, normal bowel sounds. Absent: distended, tenderness, guarding, rebound, rigid Extremities exam: Present: normal inspection, full ROM, normal capillary refill. Absent: tenderness, pedal edema, joint swelling, calf tenderness Back exam: Present: normal inspection Neurological exam: Present: alert, oriented X3, CN II-XII intact Psychiatric exam: Present: normal affect, normal mood Skin exam: Present: warm, dry, intact, normal color. Absent: rash Course Vital Signs 11/20/17 11/20/17 11/20/17 17:25 18:26 18:38 Temperature 96.9 F L Pulse Rate 75 64 65 Respiratory 26 H 20 Rate Blood Pressure 157/99 176/86 O2 Sat by Pulse 98 99 Oximetry 11/20/17 11/20/17 11/20/17 18:47 19:29 20:00 Temperature Pulse Rate 64 76 76 Respiratory 20 20 Rate Blood Pressure 178/83 147/65 O2 Sat by Pulse 100 100 Oximetry 11/20/17 20:51 Temperature Pulse Rate 78 Respiratory 20 Rate Blood Pressure 156/67 O2 Sat by Pulse 98 Oximetry Medical Decision Making - Medical Decision Making I did discuss findings with the patient the presentation is consistent with musculoskeletal chest pain is reproducible she is able take Advil or Motrin at home she does not want any pain medication at this time she'll be discharged with instruction follow-up with her doctor return when necessary the patient did not believe the updraft helped her breathing is likely secondary to the pain and she was having the perceived difficulty. - Lab Data Result diagrams: 11/20/17 18:16 11/20/17 18:16 Lab Results 11/20/17 11/20/17 11/20/17 Range/Units 18:16 18:16 18:16 WBC 7.8 (3.8-10.6) k/uL RBC 3.99 (3.80-5.40) m/uL Hgb 11.5 (11.4-16.0) gm/dL Hct 34.7 (34.0-46.0) % MCV 87.1 (80.0-100.0) fL MCH 28.7 (25.0-35.0) pg MCHC 33.0 (31.0-37.0) g/dL RDW 14.3 (11.5-15.5) % Plt Count 255 (150-450) k/uL Neutrophils % 48 % Lymphocytes % 42 % Monocytes % 7 % Eosinophils % 1 % Basophils % 0 % Neutrophils # 3.8 (1.3-7.7) k/uL Lymphocytes # 3.3 (1.0-4.8) k/uL Monocytes # 0.5 (0-1.0) k/uL Eosinophils # 0.1 (0-0.7) k/uL Basophils # 0.0 (0-0.2) k/uL PT (9.0-12.0) sec INR (<1.2) APTT (22.0-30.0) sec D-Dimer (<0.60) mg/L FEU Sodium 141 (137-145) mmol/L Potassium 3.9 (3.5-5.1) mmol/L Chloride 103 (98-107) mmol/L Carbon Dioxide 27 (22-30) mmol/L Anion Gap 11 mmol/L BUN 15 (7-17) mg/dL Creatinine 0.60 (0.52-1.04) mg/dL Est GFR (CKD-EPI)AfAm >90 (>60 ml/min/1.73 sqM) Est GFR (CKD-EPI)NonAf >90 (>60 ml/min/1.73 sqM) Glucose 108 H (74-99) mg/dL Calcium 9.2 (8.4-10.2) mg/dL Magnesium 1.8 (1.6-2.3) mg/dL Total Bilirubin 0.3 (0.2-1.3) mg/dL AST 17 (14-36) U/L ALT 25 (9-52) U/L Alkaline Phosphatase 127 H (38-126) U/L Total Creatine Kinase 73 (30-135) U/L CK-MB (CK-2) 0.8 (0.0-2.4) ng/mL CK-MB (CK-2) Rel Index 1.1 Troponin I <0.012 (0.000-0.034) ng/mL NT-Pro-B Natriuret Pep pg/mL Total Protein 7.2 (6.3-8.2) g/dL Albumin 4.1 (3.5-5.0) g/dL 11/20/17 11/20/17 Range/Units 18:16 18:16 WBC (3.8-10.6) k/uL RBC (3.80-5.40) m/uL Hgb (11.4-16.0) gm/dL Hct (34.0-46.0) % MCV (80.0-100.0) fL MCH (25.0-35.0) pg MCHC (31.0-37.0) g/dL RDW (11.5-15.5) % Plt Count (150-450) k/uL Neutrophils % % Lymphocytes % % Monocytes % % Eosinophils % % Basophils % % Neutrophils # (1.3-7.7) k/uL Lymphocytes # (1.0-4.8) k/uL Monocytes # (0-1.0) k/uL Eosinophils # (0-0.7) k/uL Basophils # (0-0.2) k/uL PT 10.2 (9.0-12.0) sec INR 1.0 (<1.2) APTT 24.2 (22.0-30.0) sec D-Dimer 0.90 H (<0.60) mg/L FEU Sodium (137-145) mmol/L Potassium (3.5-5.1) mmol/L Chloride (98-107) mmol/L Carbon Dioxide (22-30) mmol/L Anion Gap mmol/L BUN (7-17) mg/dL Creatinine (0.52-1.04) mg/dL Est GFR (CKD-EPI)AfAm (>60 ml/min/1.73 sqM) Est GFR (CKD-EPI)NonAf (>60 ml/min/1.73 sqM) Glucose (74-99) mg/dL Calcium (8.4-10.2) mg/dL Magnesium (1.6-2.3) mg/dL Total Bilirubin (0.2-1.3) mg/dL AST (14-36) U/L ALT (9-52) U/L Alkaline Phosphatase (38-126) U/L Total Creatine Kinase (30-135) U/L CK-MB (CK-2) (0.0-2.4) ng/mL CK-MB (CK-2) Rel Index Troponin I (0.000-0.034) ng/mL NT-Pro-B Natriuret Pep 445 pg/mL Total Protein (6.3-8.2) g/dL Albumin (3.5-5.0) g/dL - EKG Data -: EKG Interpreted by Me EKG shows normal: sinus rhythm (Normal sinus rhythm a 73 NH interval 166 QRS 76 daily since QTC of 46/[address]-T wave changes) - Radiology Data Radiology results: report reviewed (I did review the imaging and report no acute findings), image reviewed Disposition Clinical Impression: Chest wall pain, Costochondritis, acute Disposition: HOME SELF-CARE Condition: Good Instructions: Costochondritis (ED), Chest Wall Pain (ED) Is patient prescribed a controlled substance at d/c from ED?: No Referrals: Jewel Santiago MD [Primary Care Provider] - 1-2 days
[2017-11-20 18:41] LABS: Basophils % (A) 0 %; Eosinophils # (A) 0.1 k/uL (0-0.7); Eosinophils % (A) 1 %; HCT 34.7 % (34.0-46.0); HGB 11.5 gm/dL (11.4-16.0); Lymphocytes # (A) 3.3 k/uL (1.0-4.8); Lymphocytes % (A) 42 %; MCH 28.7 pg (25.0-35.0); MCV 87.1 fL (80.0-100.0); Mean Platelet Volume 7.9; Monocytes # (A) 0.5 k/uL (0-1.0); Monocytes % (A) 7 %; Neutrophils # (A) 3.8 k/uL (1.3-7.7); Neutrophils % (A) 48 %; Platelet Count 255 k/uL (150-450); RBC 3.99 m/uL (3.80-5.40); RDW 14.3 % (11.5-15.5); WBC 7.8 k/uL (3.8-10.6)
[2017-11-20 18:42] LABS: ALT 25 U/L (9-52); AST 17 U/L (14-36); Albumin 4.1 g/dL (3.5-5.0); Alkaline Phosphatase 127 U/L (38-126); Anion Gap 11 mmol/L; Blood Urea Nitrogen 15 mg/dL (7-17); Calcium 9.2 mg/dL (8.4-10.2); Carbon Dioxide 27 mmol/L (22-30); Chloride 103 mmol/L (98-107); Glucose 108 mg/dL (74-99); Magnesium 1.8 mg/dL (1.6-2.3); Potassium 3.9 mmol/L (3.5-5.1); Sodium 141 mmol/L (137-145); Total Bilirubin 0.3 mg/dL (0.2-1.3); Total Protein 7.2 g/dL (6.3-8.2)
--- NOTE | 2017-11-20 18:42 | XR ---
EXAMINATION TYPE: XR chest 2V DATE OF EXAM: 11/20/2017 COMPARISON: Chest x-ray May 02, 2017. Chest CT December 22, 2015 HISTORY: Chest pain and difficulty breathing. TECHNIQUE: Frontal and lateral views of the chest are obtained. FINDINGS: There is chronic emphysematous change without suspicious new focal air space opacity, pleu ral effusion, or pneumothorax seen. The cardiac silhouette size is stable and upper limits of normal . Prominent right pericardial opacity is consistent with prominent fat pad. The osseous structures are demineralized. There is mild to moderate multilevel spurring. IMPRESSION: Chronic emphysematous change without suspicious acute pulmonary process seen currently.
[2017-11-20 18:52] LABS: Partial Thromboplastin Time 24.2 sec (22.0-30.0); Prothrombin Time 10.2 sec (9.0-12.0)
[2017-11-20 18:55] LABS: Creatine Kinase 73 U/L (30-135)
[2017-11-20 18:57] LABS: D-Dimer 0.9 mg/L FEU (<0.60)
[2017-11-20 19:07] LABS: Creatine Kinase MB 0.8 ng/mL (0.0-2.4); Troponin I <0.012 ng/mL (0.000-0.034)
[2017-11-20] MEDS ORDERED: RX INFO: IV CONTRAST WAS GIVEN 1 EACH MISC MISCELLANE PRN (19:33)
--- NOTE | 2017-11-20 21:02 | CT ---
EXAMINATION TYPE: CT angio chest DATE OF EXAM: 11/20/2017 COMPARISON: CTA chest December 22, 2015 HISTORY: Chest pain, SOB and dizziness. CT DLP: 508.3 mGycm. Automated Exposure Control for Dose Reduction was Utilized. CONTRAST: CTA scan of the thorax is performed with IV Contrast, patient injected with 58ml mL of Isovue 370, pu lmonary embolism protocol. MIP Images are created on CT scanner and reviewed. FINDINGS: LUNGS: Overall mosaic attenuation is seen without suspicious focal consolidation. There is no pleur al effusion or pneumothorax seen. No suspicious nodule or mass is present bilaterally. The tracheobr onchial tree is patent. MEDIASTINUM: There is suboptimal bolus with thecal contrast in right and left heart systems but no co nvincing CT evidence for acute pulmonary embolism. There are no greater than 1 cm hilar or mediastin al lymph nodes. No significant pericardial effusion is seen. There is cardiomegaly redemonstrated. OTHER: Slight low-density thickening to both adrenal glands may reflect benign hyperplasia. There is moderate multilevel spurring in the mid to lower thoracic spine. IMPRESSION: 1. Suboptimal bolus without CT evidence for acute pulmonary embolism. 2. Cardiomegaly with mild central alveolar edema, correlate for acute CHF exacerbation. No suspicious focal consolidation is noted.
[2017-11-20 22:37] VITALS: BP 110/66; PULSE 731; RESP 8; TEMP 97.8
== END 2017-11-20 22:37 | disposition home or self-care (01) ==
LOC: EC 17:19
DX: M94.0 Chondrocostal junction syndrome [Tietze] (principal); R07.89 Other chest pain; I48.91 Unspecified atrial fibrillation; I11.0 Hypertensive heart disease with heart failure; I50.9 Heart failure, unspecified; M19.90 Unspecified osteoarthritis, unspecified site; Z86.14 Personal history of Methicillin resistant Staphylococcus aureus infection; Z79.899 Other long term (current) drug therapy; Z98.890 Other specified postprocedural states
CPT/HCPCS: 36415; 94640; 93005; 85379; 83880; 80053; 82550; 82553; 83735; 84484; 85025; 85610; 85730; 71046; 71275; 99285; 96360; 96361 ×3; Q9967

== ENCOUNTER 2018-04-24 01:16 | Inpatient (IN) | payer BC ==
--- NOTE | 2018-04-24 01:27 | ED ---
Chest Pain HPI - General Stated Complaint: TAMMY,POSS STEMI Time Seen by Provider: 04/24/18 01:18 Source: patient, EMS Mode of arrival: EMS Limitations: physical limitation (Severe dyspnea) - History of Present Illness Initial Comments: This patient is a 63-year-old woman who presents by ambulance to be evaluated for shortness of breath and chest pain. The patient states that her symptoms started around 10:30 tonight. She denies exertion at the time. She started to experience pressure at the sternum, moderate intensity, which seemed to worsen. She also began having shortness of breath. The symptoms continued and she also began to have some diaphoresis. When the symptoms continued she called her sister who then phoned EMS. EMS arrived to find the patient severely dyspneic and diaphoretic. They placed the patient on CPAP. They started an IV. They administered aspirin and she also had sublingual nitroglycerin 2. Further history is not available from the patient as she is severely dyspneic. MD Complaint: chest pain Onset/Timin -: hour(s) Onset: during rest Pain Location: substernal Pain Radiation: none Severity: moderate Quality: heaviness Consistency: constant Improves With: nitroglycerin Worsens With: nothing Anginal Symptoms: dyspnea Treatments Prior to Arrival: aspirin, nitroglycerin, oxygen - Related Data Home Medications Medication Instructions Recorded Confirmed Multivit-Min/FA/Lycopene/Lut 1 tab PO DAILY 02/16/15 04/24/18 [Centrum Silver Tablet] Rivaroxaban [Xarelto] 20 mg PO HS 02/16/15 04/24/18 Furosemide [Lasix] 40 mg PO DAILY 12/22/15 04/24/18 Potassium Chloride ER [K-Dur 20] 40 meq PO DAILY 08/11/17 04/24/18 Embrel 1 injection IM Q7D 11/20/17 04/24/18 Flecainide Acetate [Tambocor] 100 mg PO Q12HR 11/20/17 04/24/18 Leucovorin Calcium 5 mg PO Q7D 11/20/17 04/24/18 Methotrexate Sodium [Methotrexate] 12.5 mg PO Q7D 11/20/17 04/24/18 Previous Rx's Medication Instructions Recorded Lisinopril [Zestril] 5 mg PO DAILY #30 tab 02/21/15 Metoprolol Tartrate 25 mg PO BID #30 tab 08/21/17 Allergies Allergy/AdvReac Type Severity Reaction Status Date / Time No Known Allergies Allergy Verified 11/20/17 17:57 Review of Systems ROS Statement: Those systems with pertinent positive or pertinent negative responses have been documented in the HPI. ROS Other: All systems not noted in ROS Statement are negative. Limitations: ROS unobtainable due to patients medical condition (Dyspnea) Constitutional: Denies: fever Respiratory: Reports: dyspnea. Denies: cough, hemoptysis Cardiovascular: Reports: chest pain. Denies: palpitations, edema, syncope Gastrointestinal: Denies: abdominal pain, nausea, vomiting, diarrhea Genitourinary: Denies: dysuria, hematuria Musculoskeletal: Denies: back pain Skin: Denies: rash Neurological: Denies: headache, weakness, numbness EKG Findings - EKG Results: EKG: interpreted by ERMD, sinus rhythm (Rate 82 bpm) - Blocks, Fossil, Hypertrophy, ST Abn: AV and intraventricular conduction: left bundle branch block (fixed/intermittent , complete/incomplete) Past Medical History Past Medical History: Atrial Fibrillation, Chest Pain / Angina, Heart Failure, Hypertension, Osteoarthritis (OA), Sleep Apnea/CPAP/BIPAP Additional Past Medical History / Comment(s): See Dr Parker's H&P. hx: DJD, ARTHRITIS IN KNEES, placido shoulders and rt hand , vertigo on occasion, Peptic ulcer disease,"heart flutters" History of Any Multi-Drug Resistant Organisms: MRSA Date of last positivie culture/infection: 2002 MDRO Source:: lt arm Past Surgical History: Appendectomy, Section, Heart Catheterization, Hysterectomy, Joint Replacement, Orthopedic Surgery Additional Past Surgical History / Comment(s): PARTIAL HYSTERECTOMY, 7 KNEE SURGERIES= 0NE LEFT KNEE ARTHROSCOPY, and 5 RT KNEE ARTHROSCOPIES THEN TOTAL RT KNEE DONE & THEN TOTAL REVISION TO RT KNEE , PLACIDO. ACHILLES TENDON SURGERY- HAS SCREWS IN PLACIDO. HEELS, EYE SURGERY A CHILD(STRABISMUS), DENTAL IMPLANT BOTTOM LT., COLONOSCOPY WITH RANDOM BX-BENIGN, right shoulder sx x2 Past Anesthesia/Blood Transfusion Reactions: Previous Problems w/ Anesthesia, Family History of Problems w/ Anesthesia, Postoperative Nausea & Vomiting (PONV) Additional Past Anesthesia/Blood Transfusion Reaction / Comment(s): PT & HER MOTHER HAVE HX PONV Past Psychological History: No Psychological Hx Reported Smoking Status: Never smoker Past Alcohol Use History: None Reported Past Drug Use History: None Reported - Past Family History Mother Family Medical History: Congestive Heart Failure (CHF), Diabetes Mellitus Additional Family Medical History / Comment(s): IDDM. Mother at age 73yrs. Father Family Medical History: Diabetes Mellitus Additional Family Medical History / Comment(s): Father in his late 60's or early 70's. General Exam General appearance: alert, in distress (Patient in moderate respiratory distress. She is able to speak in 3-4 word phrases.) Head exam: Present: normocephalic Eye exam: Present: normal appearance. Absent: scleral icterus, conjunctival injection Respiratory exam: Present: respiratory distress, wheezes, accessory muscle use. Absent: rhonchi, stridor, chest wall tenderness, decreased breath sounds, prolonged expiratory Cardiovascular Exam: Present: regular rate, normal rhythm, normal heart sounds. Absent: systolic murmur, diastolic murmur, rubs, gallop GI/Abdominal exam: Present: soft. Absent: distended, tenderness, guarding, rebound, rigid, mass Extremities exam: Present: normal inspection, normal capillary refill. Absent: pedal edema, calf tenderness Neurological exam: Present: alert Skin exam: Present: warm, intact, normal color, diaphoretic. Absent: rash Course Vital Signs 04/24/18 04/24/18 04/24/18 01:19 01:43 01:48 Temperature 98.3 F Pulse Rate 77 Pulse Rate [ 51 L Theatre Manager ] Respiratory 34 H 32 H Rate Blood Pressure 150/78 O2 Sat by Pulse 100 Oximetry 04/24/18 01:52 Temperature Pulse Rate 84 Pulse Rate [ Theatre Manager ] Respiratory 30 H Rate Blood Pressure 149/72 O2 Sat by Pulse 100 Oximetry Chest Pain [facility] Patient is 63-year-old woman with chest pain and dyspnea, who arrives by ambulance. Her 12-lead ECG appears to show a new onset left bundle branch block compared with the ECG from April 04 of this year which we obtained by fax from [facility]. The patient had been there approximately 3 weeks ago for symptoms related to abdominal pain. Case discussed with Dr. Erickson, and the laboratory administrative director was activated. I also discussed case with Dr. Victor. Critical Care Time Critical Care Time: Yes (35 minutes) Disposition Clinical Impression: Acute coronary syndrome, Left bundle branch block Disposition: ADMITTED IP TO THIS HOSP Condition: Critical
[2018-04-24] MEDS ORDERED: NITROGLYCERIN SL TABS 0.4 MG TAB SUBLINGUAL PRN (01:32)
[2018-04-24] MEDS ORDERED: MORPHINE SULFATE 4 MG/ML SYRINGE IV STA (01:36)
[2018-04-24] MEDS ORDERED: ONDANSETRON 4 MG/2 ML VIAL IVP STA (01:36)
[2018-04-24] MEDS ORDERED: HEPARIN SODIUM,PORCINE 5,000 UNIT/ML 1 ML VIAL IV STA (01:37)
[2018-04-24 01:38] LABS: Glucose,Whole Blood 171 mg/dL (75-99)
[2018-04-24] MEDS ORDERED: PRAVASTATIN SODIUM 80 MG TAB PO STA (01:38)
[2018-04-24] MEDS ORDERED: HEPARIN SOD,PORK IN 0.45% NACL 25,000 UNIT in 0.45% NACL 1 500ML.BAG IV SCH (01:45)
[2018-04-24 01:47] LABS: Basophils # (A) 0.1 k/uL (0-0.2); Basophils % (A) 1 %; Eosinophils # (A) 0.2 k/uL (0-0.7); Eosinophils % (A) 2 %; HCT 35.6 % (34.0-46.0); HGB 11.1 gm/dL (11.4-16.0); Hypochromasia Slight; Lymphocytes # (A) 2.3 k/uL (1.0-4.8); Lymphocytes % (A) 21 %; MCH 28.3 pg (25.0-35.0); MCHC 31.2 g/dL (31.0-37.0); MCV 90.9 fL (80.0-100.0); Mean Platelet Volume 7.3; Monocytes # (A) 0.5 k/uL (0-1.0); Monocytes % (A) 4 %; Neutrophils % (A) 72 %; Platelet Count 308 k/uL (150-450); RBC 3.92 m/uL (3.80-5.40); RDW 15.4 % (11.5-15.5); WBC 11.2 k/uL (3.8-10.6)
[2018-04-24] MEDS ORDERED: ATORVASTATIN 80 MG TAB PO STA (01:51)
[2018-04-24 01:54] LABS: Potassium 4.4 mmol/L (3.5-5.1)
[2018-04-24 01:55] LABS: Albumin 4.1 g/dL (3.5-5.0); Calcium 9.2 mg/dL (8.4-10.2); Total Bilirubin 0.4 mg/dL (0.2-1.3); Total Protein 7.4 g/dL (6.3-8.2)
[2018-04-24 01:57] LABS: INR 1.2 (<1.2); Partial Thromboplastin Time 27.5 sec (22.0-30.0); Prothrombin Time 11.6 sec (9.0-12.0)
[2018-04-24] MEDS ORDERED: HEPARIN SODIUM PORCINE IV ONE (02:00)
[2018-04-24] MEDS ORDERED: D5W PMX IV ONE (02:00)
[2018-04-24] MEDS ORDERED: NACL 0.45% IV ONE (02:00)
[2018-04-24 02:03] LABS: Creatine Kinase 52 U/L (30-135)
--- NOTE | 2018-04-24 02:04 | XR ---
EXAMINATION TYPE: XR chest 1V portable DATE OF EXAM: 04/24/2018 COMPARISON: 01/18/2018 HISTORY: Chest pain TECHNIQUE: Single frontal view of the chest is obtained. FINDINGS: There is no heart failure nor confluent pneumonic infiltrate. Costophrenic angles are bee r. There are chest leads. There is prominent right pericardial fat pad. IMPRESSION: No active cardiopulmonary disease. No change.
[2018-04-24 02:16] LABS: Creatine Kinase MB 0.6 ng/mL (0.0-2.4); Troponin I <0.012 ng/mL (0.000-0.034)
[2018-04-24] MEDS ORDERED: IV FLUID CONTINUATION 900 ML IV ONE (02:22)
[2018-04-24] MEDS ORDERED: fentaNYL (PF) 50 MCG/ML 2 ML AMP IVP ONE (02:25)
[2018-04-24] MEDS ORDERED: LIDOCAINE 2% INJ 20 MG/ML SQ ONE (02:26)
[2018-04-24] MEDS ORDERED: VERAPAMIL SYRINGE (5 MG/10 ML) INTRAARTER ONE (02:28)
[2018-04-24] MEDS ORDERED: FUROSEMIDE 10 MG/ML 4 ML VIAL IVP ONE (02:38)
[2018-04-24] MEDS ORDERED: IOPAMIDOL-370 125ML BTL INJ ONE (02:40)
[2018-04-24] MEDS ORDERED: RX INFO: IV CONTRAST WAS GIVEN 1 EACH MISC MISCELLANE PRN (02:50)
[2018-04-24 02:53] LABS: ABG Base Excess -3.2 mmol/L; ABG HCO3 23 mmol/L (21-25); ABG Oxygen Saturation 98.7 % (94-97); ABG PCO2 43 mmHg (35-45); ABG PH 7.33 (7.35-7.45); ABG PO2 152 mmHg (83-108); ABG TCO2 24 mmol/L (19-24)
[2018-04-24] MEDS ORDERED: SODIUM CHLORIDE 0.9% 1,000 ML IV SCH (03:00)
[2018-04-24 03:17] LABS: Glucose,Whole Blood 140 mg/dL (75-99)
[2018-04-24 03:41] LABS: Basophils % (A) 0 %; Eosinophils % (A) 0 %; HGB 11.3 gm/dL (11.4-16.0); Hypochromasia Slight; Lymphocytes # (A) 1.1 k/uL (1.0-4.8); Lymphocytes % (A) 7 %; MCH 28.6 pg (25.0-35.0); MCHC 31.4 g/dL (31.0-37.0); Monocytes # (A) 0.3 k/uL (0-1.0); Monocytes % (A) 2 %; Neutrophils # (A) 13.3 k/uL (1.3-7.7); Neutrophils % (A) 90 %; Platelet Count 298 k/uL (150-450); RBC 3.96 m/uL (3.80-5.40); RDW 15.1 % (11.5-15.5); WBC 14.8 k/uL (3.8-10.6)
[2018-04-24 03:53] LABS: Anion Gap 10 mmol/L; Blood Urea Nitrogen 18 mg/dL (7-17); Calcium 9.1 mg/dL (8.4-10.2); Carbon Dioxide 23 mmol/L (22-30); Chloride 105 mmol/L (98-107); Glucose 140 mg/dL (74-99); Potassium 4.5 mmol/L (3.5-5.1); Sodium 138 mmol/L (137-145)
[2018-04-24 03:58] VITALS: BMI 40.2
--- NOTE | 2018-04-24 05:27 | CONS ---
CONSULTATION CHIEF COMPLAINT: Shortness of breath and jaw pain. This is a 63-year-old lady with history of atrial fibrillation, status post ablation, hypertension, who presented to the hospital with shortness of breath and jaw pain from 10:30 this evening. On her arrival to the emergency room, she was found to have new onset left bundle branch block. Hence, she was advised to undergo emergent cardiac catheterization with a view to performing angiography and possible angioplasty. She had been explained of risks, benefits and alternatives, understood and accepted. The patient had a cardiac catheterization in 2014 that showed normal coronary arteries. At the time of my evaluation in the cathead operator, her shortness of breath is getting better. She is on a BiPAP machine. EKG shows left bundle. PAST MEDICAL HISTORY: Past medical history is significant for paroxysmal atrial fibrillation, status post ablation, hypertension. CURRENT MEDICATIONS: Current medications include Xarelto 20 q. daily, K-Dur, metoprolol 25 b.i.d., methotrexate, lisinopril 5 q. daily, Lasix 40 q. daily, Tambocor 100 b.i.d. ALLERGIES: There are no known drug allergies. FAMILY HISTORY: Family history is negative for premature coronary artery disease. SOCIAL HISTORY: Negative for current smoking, EtOH abuse or drug abuse. REVIEW OF SYSTEMS: HEENT is unremarkable. CARDIAC: As described above. RESPIRATORY: Significant for shortness of breath. GI: Negative. GENITOURINARY: Negative. ALLERGY/IMMUNOLOGY: Negative. SKIN: Negative. MUSCULOSKELETAL: Significant for arthritis. PSYCHOSOCIAL: Negative. ENDOCRINE: Negative. HEMATOLOGICAL: Negative. DERM: Negative. CONSTITUTIONAL: Negative. ONCOLOGICAL: Negative. PHYSICAL EXAMINATION: On exam, she is comfortable at rest. Afebrile. Vital signs are stable. Seems short of breath at rest. There is no jugular venous distention. Carotid upstroke is normal. There is no bruit. Chest exam reveals good air entry bilaterally. Heart exam reveals first and second heart sounds. No gallop. Abdomen is soft, nontender. Examination of extremities did not reveal any edema. Peripheral pulses are felt. LABS: Labs show a potassium of 4.1. Creatinine is 0.6. ASSESSMENT: 1. Acute coronary syndrome with new onset left bundle branch block, probably due to acute ST-segment elevation myocardial infarction. 2. Paroxysmal atrial fibrillation, status post ablation. 3. Hypertension. PLAN: Patient will undergo emergent cardiac catheterization and angioplasty. The patient sees Dr. Victor the on-call exercise equipment specialist in the outpatient setting. He will perform the cardiac catheterization. MMLEONIDESL / IJN: [id number] /
--- NOTE | 2018-04-24 05:37 | CC ---
CARDIAC CATHETERIZATION REPORT Mrs. Mckeon is a 63-year-old female with history of hypertension, paroxysmal atrial fibrillation, who presented to the emergency room with jaw discomfort and symptoms of significant dyspnea with a new left bundle branch block. She was evaluated by Dr. Erickson and recommendation was made regarding cardiac catheterization. The procedure as well as the risks and the complications were discussed with the patient who is in full understanding and agreement. PROCEDURE: Patient was brought to oil laboratory analyst after receiving fentanyl and Benadryl and achieving moderate conscious sedated state. Using Xylocaine anesthesia and Seldinger technique, a 6-Bulgarian sheath was introduced in the right radial artery. Selective right and left coronary angiography performed using 5-Bulgarian 3.5 bend right Ced catheter and a 3.5 bend FL 6-Bulgarian guiding catheter. Images of the coronary arteries were obtained. Following that, a 5-Bulgarian tight pigtail catheter was introduced in the left ventricle and a 30-degree BILLINGSLEY view of the left ventricle was obtained. Following that, catheter and sheaths were removed. Hemostasis was obtained with deployment of a TR band. There was no immediate complication. Patient was returned to her room in stable condition. There was no immediate complication. FINDINGS: LEFT MAIN: This is a large-sized vessel trifurcating left circumflex, left anterior descending artery and ramus intermedius. Left main coronary artery has no evidence of high-grade stenosis. LEFT ANTERIOR DESCENDING ARTERY: This is a large-sized vessel reaching to the apex with a wraparound apex segment. The left anterior descending artery as well as branches have no evidence of obstructive coronary artery disease. RAMUS INTERMEDIUS: This is a large-sized vessel reaching toward the apical lateral wall and has no evidence of high-grade stenosis. LEFT CIRCUMFLEX: This is a nondominant vessel giving rise to 3 obtuse marginal branches of small to moderate caliber. The left circumflex and its branches have no evidence of obstructive coronary artery disease. RIGHT CORONARY ARTERY: This is a large dominant vessel bifurcating distally PDA and posterolateral segment and branches. The right coronary artery and its branches have no evidence of obstructive coronary artery disease. LEFT VENTRICULOGRAM: Left ventriculogram is performed in 30-degree BILLINGSLEY view and revealed normal left ventricular size with a preserved systolic function with ejection fraction of 50% to 55% with 4+ mitral regurgitation. HEMODYNAMICS: There was no gradient across the aortic valve. The left ventricular end- diastolic pressure was 42 mmHg. CONCLUSION: 1. Normal coronary arteries. 2. Preserved systolic function with 4+ mitral regurgitation. 3. Elevated left ventricular end-diastolic pressure. RECOMMENDATION: At this time I will continue evaluation for the etiology of the mitral regurgitation that was not documented in the past and depending on that, further recommendation will be made. Those findings and recommendation were discussed with the patient and she is in full understanding and agreement. MMUDAY / JACINTAN: [id number] /
--- NOTE | 2018-04-24 08:12 | XR ---
EXAMINATION TYPE: XR chest 1V DATE OF EXAM: 04/24/2018 COMPARISON: Prior chest x-ray 04/24/2018 HISTORY: Shortness of breath TECHNIQUE: Single frontal view of the chest is obtained. FINDINGS: Findings are similar to prior exam. Heart is enlarged. No pneumothorax or pleural effusion is evident. Interstitium is mildly increased. There are overlying cardiac leads. Suspect there is a prominent epicardial fat pad. IMPRESSION: Cardiomegaly, follow-up PA and lateral chest x-ray could be of benefit.
[2018-04-24] MEDS: FUROSEMIDE 10 MG/ML 4 ML VIAL IV SCH ×2 (08:22→21:21)
[2018-04-24] MEDS: LISINOPRIL 5 MG TAB PO SCH (09:57)
[2018-04-24] MEDS: METOPROLOL TARTRATE 25 MG TAB PO SCH ×2 (09:57→21:21)
[2018-04-24] MEDS: PANTOPRAZOLE 40 MG TABLET PO SCH ×2 (10:32→17:17)
[2018-04-24] MEDS: FERROUS SULFATE 325 MG TAB PO SCH ×2 (10:32→17:16)
--- NOTE | 2018-04-24 10:50 | PN ---
PROGRESS NOTE Veronica is a 63-year-old lady who presented to hospital with shortness of breath and chest pain. She had a new onset left bundle branch block and underwent emergent cardiac catheterization that did not reveal significant obstructive CAD. The chest x- ray on her showed cardiomegaly and the left ventriculogram showed severe mitral regurgitation. She apparently had an echocardiogram within the last 1 month when she was admitted to hospital with a noncardiac problem. She had a CORINNE prior to ablation for atrial fibrillation a little over a year ago and at that time did not have significant mitral regurgitation. The plan at this stage is to obtain her records, repeat an echo here and once she is more stable respiratory ken, consider a transesophageal echo. PHYSICAL EXAMINATION: On exam, heart rate is 70 beats per minute. Blood pressure is 134/53. Respiratory rate is 24. Chest exam reveals good air entry. I do not hear any crackles or rhonchi. Heart exam reveals first and second heart sounds. Systolic murmur at the apex. Abdomen is soft. Examination of the extremities did not reveal any edema. Peripheral pulses are felt. The patient is currently on Lasix, Zestril, Lopressor. I will resume the Tambocor and the Xarelto that she was on. ASSESSMENT: 1. Severe mitral regurgitation. 2. New onset congestive heart failure. 3. New onset left bundle branch block, status post catheterization. 4. Atrial fibrillation, status post ablation. MMODL / IJN: [id number] /
[2018-04-24] MEDS: POTASSIUM CHLORIDE ER 20 MEQ TAB.ER PO SCH (11:41)
--- NOTE | 2018-04-24 12:15 | P.CNPUL ---
History of Present Illness Consult date: 04/24/18 Reason for consult: dyspnea History of present illness: 63-year-old female patient, obese with a BMI of 40, in addition to history of atrial fibrillation post-ablation, rheumatoid arthritis, hypertension who was recently admitted to [facility] in [place] for profound anemia and further investigation with an EGD and colonoscopy showed that the patient had a large clean-based ulcer in the antrum of the stomach. Biopsies were obtained. The patient was discharged home on oral iron and she was also given PPI. Anticoagulation was also stopped nontender the patient was taken Eliquis. The patient was at home and yesterday evening she became acutely short of breath. EKG showed a new left bundle branch block pattern. The patient was seen by cardiology and the patient underwent an emergent cardiac catheterization and the coronaries do not to be within normal limits and the patient was found to have a new onset grade 4 mitral regurgitation. This was not present especially that was able to obtain an echocardiogram on this patient that was done and [facility] on 04/05/2018 and the patient had a preserved LV function with an ejection fraction of 60-65% and the patient had a moderate to severe left atrial dilatation, [id number] mitral regurgitation and a RV size was essentially within normal limits. The patient came in to the ICU on a BiPAP. Currently she has been weaned down to 5 L of oxygen nasal cannula. She is receiving IV Lasix 40 mg every 12 hours and she has diuresed more than 1.5 L of urine output. She is feeling better. She is less short of breath. She is still a bit anxious. Hemoglobin is above 10. No palpitation. No chest pain. No cough. No sputum production. Chest x-ray was showing a component of pulmonary edema. The blood gases earlier showed a pH of 7.33 with a pCO2 of 43 and pO2 152 and this was on FiO2 of 50% while her being on a BiPAP. She has normal renal function. Troponins are negative. BNP level is at 453. Review of Systems Constitutional: Reports fatigue, Reports weakness Eyes: denies blurred vision, denies bulging eye, denies decreased vision Ears: deny: decreased hearing, ear discharge, earache, tinnitus Ears, nose, mouth and throat: Denies headache, Denies sore throat Cardiovascular: Reports as per HPI, Reports decreased exercise tolerance Respiratory: Reports dyspnea Gastrointestinal: Denies abdominal pain, Denies diarrhea, Denies nausea, Denies vomiting Genitourinary: Denies dysuria, Denies hematuria Menstruation: Reports as per HPI Musculoskeletal: Reports as per HPI Musculoskeletal: absent: ankle pain, ankle stiffness, ankle swelling Integumentary: Denies pruritus, Denies rash Neurological: Denies numbness, Denies weakness Psychiatric: Denies anxiety, Denies depression Endocrine: Denies fatigue, Denies weight change Hematologic/Lymphatic: Reports as per HPI Allergic/Immunologic: Reports as per HPI Past Medical History Past Medical History: Atrial Fibrillation, Chest Pain / Angina, Heart Failure, Hypertension, Osteoarthritis (OA), Sleep Apnea/CPAP/BIPAP Additional Past Medical History / Comment(s): History of atrial fibrillation post-ablation, rheumatoid arthritis, hypertension, recent hospitalization for GI bleeds related to a antral ulcer, anemia secondary to GI bleed, vertigo, liver lesion probably a meningioma and the patient will be having an outpatient MRI at a later stage, hypertension History of Any Multi-Drug Resistant Organisms: MRSA Date of last positivie culture/infection: 2002 MDRO Source:: lt arm Past Surgical History: Appendectomy, Section, Heart Catheterization, Hysterectomy, Joint Replacement, Orthopedic Surgery Additional Past Surgical History / Comment(s): PARTIAL HYSTERECTOMY, 7 KNEE SURGERIES= 0NE LEFT KNEE ARTHROSCOPY, and 5 RT KNEE ARTHROSCOPIES THEN TOTAL RT KNEE DONE & THEN TOTAL REVISION TO RT KNEE , PLACIDO. ACHILLES TENDON SURGERY- HAS SCREWS IN PLACIDO. HEELS, EYE SURGERY A CHILD(STRABISMUS), DENTAL IMPLANT BOTTOM LT., COLONOSCOPY WITH RANDOM BX-BENIGN, right shoulder sx x2 Past Anesthesia/Blood Transfusion Reactions: Previous Problems w/ Anesthesia, Family History of Problems w/ Anesthesia, Postoperative Nausea & Vomiting (PONV) Additional Past Anesthesia/Blood Transfusion Reaction / Comment(s): PT & HER MOTHER HAVE HX PONV Past Psychological History: No Psychological Hx Reported Smoking Status: Never smoker Past Alcohol Use History: None Reported Past Drug Use History: None Reported - Past Family History Mother Family Medical History: Congestive Heart Failure (CHF), Diabetes Mellitus Additional Family Medical History / Comment(s): IDDM. Mother at age 73yrs. Father Family Medical History: Diabetes Mellitus Additional Family Medical History / Comment(s): Father in his late 60's or early 70's. Medications and Allergies Home Medications Medication Instructions Recorded Confirmed Type Rivaroxaban [Xarelto] 20 mg PO HS 02/16/15 04/24/18 History Lisinopril [Zestril] 5 mg PO DAILY #30 tab 02/21/15 04/24/18 Rx Furosemide [Lasix] 40 mg PO DAILY 12/22/15 04/24/18 History Metoprolol Tartrate 25 mg PO BID #30 tab 08/21/17 04/24/18 Rx Flecainide Acetate [Tambocor] 100 mg PO Q12HR 11/20/17 04/24/18 History Ferrous Sulfate [Iron] 325 mg PO BID 04/24/18 04/24/18 History Nystatin 100,000 Unit/gm Powd 1 applic TOPICAL BID 04/24/18 04/24/18 History [Mycostatin Powder] Pantoprazole [Protonix] 40 mg PO BID 04/24/18 04/24/18 History Potassium Chloride [Klor-Con 20] 20 meq PO DAILY 04/24/18 04/24/18 History Allergies Allergy/AdvReac Type Severity Reaction Status Date / Time No Known Allergies Allergy Verified 04/24/18 09:23 Physical Exam Vitals: Vital Signs Temp Pulse Pulse Resp BP Pulse Ox 04/24/18 11:00 70 25 H 116/61 97 04/24/18 10:00 73 28 H 134/63 99 04/24/18 09:00 76 28 H 127/65 100 04/24/18 08:00 98.1 F 72 23 122/61 100 04/24/18 07:00 70 28 H 116/60 98 04/24/18 06:00 73 20 124/72 98 04/24/18 05:00 70 24 123/65 100 04/24/18 04:00 72 142/65 100 04/24/18 03:30 97.9 F 78 24 142/65 100 04/24/18 03:20 78 99 04/24/18 03:14 97 04/24/18 01:52 84 30 H 149/72 100 04/24/18 01:48 51 L 04/24/18 01:43 32 H 04/24/18 01:19 98.3 F 77 34 H 150/78 100 Intake and Output 04/23/18 04/24/18 04/24/18 22:59 06:59 14:59 Intake Total 400 375 Output Total 950 1405 Balance -550 -1030 Intake: IV 400 375 Sodium Chloride 0.9% 1, 300 375 000 ml @ 75 mls/hr IV . [id number] [facility] [place] Rx#:[id number] Output: Urine 950 1405 Other: Voiding Method Indwelling Catheter Indwelling Catheter Weight 109.7 kg The patient appeared well nourished and normally developed. Vital signs as documented. Head exam is unremarkable. No scleral icterus or corneal arcus noted. Neck is without jugular venous distension, thyromegaly, or carotid bruits. Carotid upstrokes are brisk bilaterally. Lungs are clear to auscultation and percussion, and the patient has some limited connective lung bases bilaterally.. Cardiac exam reveals the PMI to be normally sized and situated. Rhythm is regular. First and second heart sounds normal. No murmurs, rubs or gallops. Abdominal exam reveals normal bowel sounds, no masses, no organomegaly and no aortic enlargement. Extremities are nonedematous and both femoral and pedal pulses are normal.Examination of the skin revealed no evidence of significant rashes, suspicious appearing nevi or other concerning lesions. Neurologic the patient is awake and alert and is no focal neurological deficit. Results - Laboratory Findings CBC and BMP: 04/24/18 03:27 04/24/18 09:31 ABG ABG pH 7.33 (7.35-7.45) L 04/24/18 02:47 ABG pCO2 43 mmHg (35-45) 04/24/18 02:47 ABG pO2 152 mmHg (83-108) H 04/24/18 02:47 ABG O2 Saturation 98.7 % (94-97) H 04/24/18 02:47 PT/INR, D-dimer PT 11.6 sec (9.0-12.0) 04/24/18 01:30 INR 1.2 (<1.2) H 04/24/18 01:30 Abnormal lab findings: Abnormal Labs 04/24/18 04/24/18 04/24/18 01:27 01:30 01:30 WBC 11.2 H Hgb 11.1 L Neutrophils # 8.0 H INR ABG pH ABG pO2 ABG O2 Saturation BUN 18 H Glucose 170 H POC Glucose (mg/dL) 171 H 10/09/1004/24/18 04/24/18 01:30 02:47 03:14 WBC Hgb Neutrophils # INR 1.2 H ABG pH 7.33 L ABG pO2 152 H ABG O2 Saturation 98.7 H BUN Glucose POC Glucose (mg/dL) 140 H 04/24/18 04/24/18 03:27 03:27 WBC 14.8 H Hgb 11.3 L Neutrophils # 13.3 H INR ABG pH ABG pO2 ABG O2 Saturation BUN 18 H Glucose 140 H POC Glucose (mg/dL) - Diagnostic Findings Chest x-ray: image reviewed Assessment and Plan Plan: Assessment 1 acute hypoxic respiratory failure second to pulmonary edema in a sedation with a new onset mitral regurgitation as identified on cardiac catheterization. The patient was initially placed on a BiPAP for Charlene support. Currently the patient on IV Lasix 40 mg every 12 hours and the patient is producing adequate amount of urine output and she is hemodynamically stable. Oxygenation is improved and the patient is currently down to 5 L of oxygen nasal cannula 2 normal coronary anatomy based on the recent cardiac catheterization that was done today 3 acute mitral regurgitation, severe, grade 4 4 recent hospitalization for GI bleed secondary to a antral ulcers, post-EGD and colonoscopy 5 rheumatoid arthritis 6 history of atrial fibrillation current rhythm is sinus and the patient is currently on Xarelto 7 liver lesion, possibly a hemangioma 8 hypertension Plan We'll keep the patient intensive care unit. Gradually wean down the FiO2 as tolerated. Continue diuretics. Keep the patient on BiPAP for now as the patient has improved considerably. The plan is to keep the patient nothing by mouth after midnight and proceed with a CORINNE in a.m. Case was discussed with cardiology. Keep the patient off anticoagulation. Continue Tambocor. Continue lisinopril and metoprolol. Continue oral Protonix.
[2018-04-24] MEDS ORDERED: ACETAMINOPHEN TAB 325 MG TAB PO PRN (12:26)
--- NOTE | 2018-04-24 13:06 | ECHOF ---
Referral Reason:mr MEASUREMENTS -------- HEIGHT: 165.1 cm WEIGHT: 109.3 kg BP: 124/72 IVSd: 1.3 cm (0.6 - 1.1) LVIDd: 3.7 cm (3.9 - 5.3) LVPWd: 1.2 cm (0.6 - 1.1) IVSs: 2.1 cm LVIDs: 1.5 cm LVPWs: 1.6 cm LAESV Index (A-L): 25.60 ml/m Ao Diam: 3.0 cm (2.0 - 3.7) AV Cusp: 1.7 cm (1.5 - 2.6) MV EXCURSION: 18.395 mm (> 18.000) MV EF SLOPE: 128 mm/s (70 - 150) EPSS: 0.8 cm MV E Chris: 1.15 m/s MV DecT: 212 ms MV A Chris: 0.76 m/s MV E/A Ratio: 1.50 RAP: 5.00 mmHg RVSP: 14.73 mmHg FINDINGS -------- Sinus rhythm. This was a technically difficult study with suboptimal views. The left ventricular size is normal. There is mild concentric left ventricular hypertrophy. Overa ll left ventricular systolic function is normal with, an EF between 55 - 60 %. The right ventricle is normal in size and function. The left atrium is normal in size. The right atrium is normal in size. Lumason used The aortic valve is trileaflet, and appears structurally normal. No aortic stenosis or regurgitation. Mild mitral annular calcification present. Mild mitral regurgitation is present. Trace tricuspid regurgitation present. There is no evidence of pulmonary hypertension. The right ventricular systolic pressure, as measured by Doppler, is 14.73mmHg. The pulmonic valve was not well visualized. The aortic root size is normal. There is no pericardial effusion. CONCLUSIONS -------- 1. Sinus rhythm. 2. This was a technically difficult study with suboptimal views. 3. The left ventricular size is normal. 4. There is mild concentric left ventricular hypertrophy. 5. Overall left ventricular systolic function is normal with, an EF between 55 - 60 %. 6. The right ventricle is normal in size and function. 7. The left atrium is normal in size. 8. Lumason used 9. The aortic valve is trileaflet, and appears structurally normal. No aortic stenosis or regurgitati on. 10. Mild mitral regurgitation is present. 11. Trace tricuspid regurgitation present. 12. There is no evidence of pulmonary hypertension. 13. The pulmonic valve was not well visualized. 14. The aortic root size is normal. 15. There is no pericardial effusion. REVIEWER SALES: Joanie Bauman RDCS
[2018-04-24] MEDS: IPRATROPIUM-ALBUTEROL 3 ML NEB INHALATION PRN ×2 (13:48→16:36)
[2018-04-24] MEDS: RIVAROXABAN 20 MG TAB PO SCH (17:16)
[2018-04-24] MEDS: FLECAINIDE 50 MG TAB PO SCH (21:21)
[2018-04-25 03:38] LABS: HCT 31.9 % (34.0-46.0); HGB 10.6 gm/dL (11.4-16.0); MCH 30.2 pg (25.0-35.0); MCV 91.4 fL (80.0-100.0); Mean Platelet Volume 7.9; Platelet Count 247 k/uL (150-450); RDW 15.7 % (11.5-15.5); WBC 10.9 k/uL (3.8-10.6)
[2018-04-25 03:48] LABS: Anion Gap 10 mmol/L; Blood Urea Nitrogen 22 mg/dL (7-17); Calcium 9.2 mg/dL (8.4-10.2); Carbon Dioxide 23 mmol/L (22-30); Chloride 106 mmol/L (98-107); Glucose 114 mg/dL (74-99); Magnesium 2.2 mg/dL (1.6-2.3); Sodium 139 mmol/L (137-145)
[2018-04-25] MEDS: FERROUS SULFATE 325 MG TAB PO SCH ×2 (07:32→17:46)
[2018-04-25] MEDS: FUROSEMIDE 10 MG/ML 4 ML VIAL IV SCH ×2 (08:28→22:27)
[2018-04-25] MEDS: PANTOPRAZOLE 40 MG TABLET PO SCH ×2 (08:32→17:46)
[2018-04-25] MEDS: LISINOPRIL 5 MG TAB PO SCH (08:32)
[2018-04-25] MEDS: FLECAINIDE 50 MG TAB PO SCH ×2 (08:32→22:27)
[2018-04-25] MEDS: POTASSIUM CHLORIDE ER 20 MEQ TAB.ER PO SCH (08:32)
[2018-04-25] MEDS: METOPROLOL TARTRATE 25 MG TAB PO SCH ×2 (08:32→22:27)
--- NOTE | 2018-04-25 08:46 | XR ---
EXAMINATION TYPE: XR chest 1V DATE OF EXAM: 04/25/2018 COMPARISON: Prior chest x-ray 04/24/2018 HISTORY: Shortness of breath TECHNIQUE: Single frontal view of the chest is obtained. FINDINGS: Heart is enlarged. Interstitium appears somewhat increased. Central vascularity and jessica s how similar appearance. Question background of groundglass opacity. IMPRESSION: Stable exam. Cardiomegaly. Correlate to exclude congestive heart failure.
--- NOTE | 2018-04-25 09:18 | P.PN ---
Subjective Progress Note Date: 04/25/18 Principal diagnosis: Acute hypoxic respiratory failure secondary to pulmonary edema, new onset 4+ mitral regurgitation. 63-year-old female patient, obese with a BMI of 40, in addition to history of atrial fibrillation post-ablation, rheumatoid arthritis, hypertension who was recently admitted to [facility] in [place] for profound anemia and further investigation with an EGD and colonoscopy showed that the patient had a large clean-based ulcer in the antrum of the stomach. Biopsies were obtained. The patient was discharged home on oral iron and she was also given PPI. Anticoagulation was also stopped nontender the patient was taken Eliquis. The patient was at home and yesterday evening she became acutely short of breath. EKG showed a new left bundle branch block pattern. The patient was seen by cardiology and the patient underwent an emergent cardiac catheterization and the coronaries do not to be within normal limits and the patient was found to have a new onset grade 4 mitral regurgitation. This was not present especially that was able to obtain an echocardiogram on this patient that was done and [facility] on 04/05/2018 and the patient had a preserved LV function with an ejection fraction of 60-65% and the patient had a moderate to severe left atrial dilatation, [id number] mitral regurgitation and a RV size was essentially within normal limits. The patient came in to the ICU on a BiPAP. Currently she has been weaned down to 5 L of oxygen nasal cannula. She is receiving IV Lasix 40 mg every 12 hours and she has diuresed more than 1.5 L of urine output. She is feeling better. She is less short of breath. She is still a bit anxious. Hemoglobin is above 10. No palpitation. No chest pain. No cough. No sputum production. Chest x-ray was showing a component of pulmonary edema. The blood gases earlier showed a pH of 7.33 with a pCO2 of 43 and pO2 152 and this was on FiO2 of 50% while her being on a BiPAP. She has normal renal function. Troponins are negative. BNP level is at 453. On 04/25/2018 patient seen in follow-up in the intensive care unit. She did wear her BiPAP last night, patient does have underlying history of obstructive sleep apnea, she wears a CPAP on a regular basis at a pressure of 7 cm of water. Currently on 1 L per nasal cannula, her pulse ox is 98%, she is afebrile , she is sinus rhythm on the monitor, she had a heart catheterization yesterday which revealed normal coronary arteries. She is scheduled for CORINNE today in regards to new onset 4+ mitral regurgitation. She denies any chest pain or shortness of breath. Lung sounds are essentially clear. Today's labs have been noted, WBCs 10.9, hemoglobin is 10.6, sodium is 139, potassium is 4.2, BUN is 22, creatinine 0.58. Patient had a heart catheterization via right radial approach, the puncture site is tender to touch, no hematoma. 3 sets of troponins were negative. Today's chest x-ray showed cardiomegaly, persistent central vascularity. Patient remains on IV Lasix, 40 mg every 12 hours, maintaining negative fluid balance, -2500 over last 24 hours. And her weight is down by 3.8 kg Objective - Vital Signs Vital signs: Vital Signs Temp 97.9 F 04/25/18 08:00 Pulse 66 04/25/18 09:00 Resp 16 04/25/18 09:00 BP 122/57 04/25/18 09:00 Pulse Ox 98 04/25/18 09:00 Intake & Output 04/24/18 04/25/18 04/25/18 18:59 06:59 18:59 Intake Total 470 Output Total 1635 1335 505 Balance -1165 -1335 -505 Weight 105.9 kg Intake: IV 470 Sodium Chloride 0.9% 1, 470 000 ml @ 75 mls/hr IV . [id number] [facility] Rx#:[id number] Output: Urine 1635 1335 505 Other: Voiding Method Indwelling Catheter Indwelling Catheter Indwelling Catheter - Exam GENERAL EXAM: Alert, pleasant, obese 63-year-old white female, comfortable in no apparent distress. HEAD: Normocephalic/atraumatic. EYES: Normal reaction of pupils, equal size. Conjunctiva pink, sclera white. NOSE: Clear with pink turbinates. THROAT: No erythema or exudates. NECK: No masses, no JVD, no thyroid enlargement, no adenopathy. CHEST: No chest wall deformity. Symmetrical expansion. LUNGS: Equal air entry with no crackles, wheeze, rhonchi or dullness. CVS: Regular rate and rhythm, normal S1 and S2, distant heart sounds, no gallops , no murmurs, no rubs ABDOMEN: Soft, nontender. No hepatosplenomegaly, normal bowel sounds, no guarding or rigidity. EXTREMITIES: No clubbing, no edema, no cyanosis, 2+ pulses and upper and lower extremities. MUSCULOSKELETAL: Muscle strength and tone normal. SPINE: No scoliosis or deformity SKIN: No rashes CENTRAL NERVOUS SYSTEM: Alert and oriented -3. No focal deficits, tone is normal in all 4 extremities. PSYCHIATRIC: Alert and oriented -3. Appropriate affect. Intact judgment and insight. - Labs CBC & Chem 7: 04/25/18 03:17 04/25/18 05:22 Labs: Abnormal Lab Results - Last 24 Hours (Table) 04/25/18 04/25/18 Range/Units :17 03:17 WBC 10.9 H (3.8-10.6) k/uL RBC 3.50 L (3.80-5.40) m/uL Hgb 10.6 L (11.4-16.0) gm/dL Hct 31.9 L (34.0-46.0) % RDW 15.7 H (11.5-15.5) % Potassium 6.0 H (3.5-5.1) mmol/L BUN 22 H (7-17) mg/dL Glucose 114 H (74-99) mg/dL Assessment and Plan Plan: Assessment: 1 acute hypoxic respiratory failure second to pulmonary edema in a sedation with a new onset mitral regurgitation as identified on cardiac catheterization. Patient required BiPAP support in the initial phases. Currently the patient on IV Lasix 40 mg every 12 hours and the patient is producing adequate amount of urine output and she is hemodynamically stable. Oxygenation is improved and the patient is currently down to 1 L of oxygen nasal cannula 2 normal coronary anatomy based on the recent cardiac catheterization that was done today 3 acute mitral regurgitation, severe, grade 4 4 recent hospitalization for GI bleed secondary to a antral ulcers, post-EGD and colonoscopy 5 rheumatoid arthritis 6 history of atrial fibrillation current rhythm is sinus and the patient is currently on Xarelto 7 liver lesion, possibly a hemangioma 8 hypertension Plan: Continue IV diuretics, she is breathing easier today, did wear her BiPAP support last night, she does have underlying history of obstructive sleep apnea , and she wears CPAP at a pressure of 7 cm of water. Lung sounds clear, no chest pain or shortness of breath. She is awaiting her transesophageal echocardiogram, and by mouth after midnight. I performed a history & physical examination of the patient and discussed their management with my nurse practitioner, Melly Murrell. I reviewed the nurse practitioner's note and agree with the documented findings and plan of care. Lung sounds are clear. The findings and the impression was discussed with the patient. I attest to the documentation by the nurse practitioner. Time with Patient: Greater than 30
[2018-04-25] MEDS ORDERED: fentaNYL (PF) 50 MCG/ML 2 ML AMP IVP STA (12:57)
[2018-04-25] MEDS ORDERED: MIDAZOLAM 2 MG/2 ML VIAL IV ONE (12:58)
[2018-04-25] MEDS: MIDAZOLAM 2 MG/2 ML VIAL ONE ×2 (13:04→13:07)
[2018-04-25] MEDS: BENZOCAINE SPRAY 1 CAN MUCOUS MEM ONE ×2 (13:10→13:12)
[2018-04-25] MEDS ORDERED: SODIUM CHLORIDE 0.9% 1,000 ML IV SCH (13:30)
--- NOTE | 2018-04-25 13:54 | ECHOT ---
TRANSESOPHAGEAL ECHOCARDIOGRAM TRANSESOPHAGEAL ECHOCARDIOGRAM: INDICATION: Evaluation of mitral valve. PROCEDURE: After explaining the procedure to the patient, its risks and complications, blood pressure, heart rate, O2 saturation was monitored. The throat was sprayed with Cetacaine, she received 3 mg intravenous Versed, 50 mcg intravenous fentanyl. After achieving moderate conscious state, the probe was introduced into the esophagus without difficulty, images were obtained. Following that, the probe was removed. There was no immediate complication. FINDINGS: Left atrial size is dilated. Left atrial appendage is normal. Left ventricular size and systolic function normal. The aortic valve appears to be normal. The mitral valve is mildly thickening without significant prolapse. The tricuspid valve is normal, descending thoracic aorta appears to be normal, contrast bubble study revealed no evidence shunting across the interatrial septum. Doppler pulse wave and color Doppler obtained and revealed a severe mitral regurgitation with mild to moderate tricuspid regurgitation and severe pulmonary hypertension. The estimated right ventricular systolic pressure was 100 mmHg. There was no shunting across the interatrial septum. CONCLUSION: 1. Dilated left atrium with normal appearance left atrial appendage. 2. Normal left ventricular size and systolic function. 3. Mild thickening of the mitral valve leaflets with no significant prolapse and severe mitral regurgitation. 4. Mild to moderate tricuspid regurgitation with severe pulmonary hypertension. 5. No shunting across the interatrial septum. 6. No pericardial effusion. 7. Normal appearance of the descending thoracic aorta. MMODL / IJN: [id number] /
[2018-04-25 14:38] LABS: Hemoglobin A1C 4.9 % (4.0-6.0)
--- NOTE | 2018-04-25 16:00 | P.GSCN ---
<Germain Wright - Last Filed: 04/25/18 15:27> History of Present Illness Consult date: 04/25/18 Reason for Consult: Severe mitral valve regurgitation Requesting physician: Caro Victor History of present illness: This is a 63-year-old female patient who is followed by Dr. Santiago on an outpatient basis. She has a past medical history significant for paroxysmal atrial fibrillation currently on Xarelto, hypertension, rheumatoid arthritis, obesity with a BMI of 40, obstructive sleep apnea with home CPAP machine, rheumatoid arthritis, a recent history of anemia and was found to have an ulcer to the antrum of her stomach which was diagnosed at [facility]. On 04/04/2018 patient was admitted to [facility] for complaints of progressive shortness of breath, she was subsequently transferred to [facility] in [place] for further workup. She was subsequently found to be anemic and underwent further testing in the way of an EGD which demonstrated a large ulcer in the antrum of the stomach. She was discharged home on 2017. Yesterday morning 04/24/2018 around 1 AM the patient became progressively short of breath, complaint of dizziness, felt clammy, diaphoretic , complaints of chest pain radiating across her chest and had some episodes of nausea and vomiting. She denies any complaints of fever, syncope, loss of bowel or bladder function. The patient presented to the emergency department here at [facility] with the above mentioned symptoms. A 12- lead EKG was completed in the emergency department which showed a new left bundle branch block pattern with a heart rate of 81 BPM. A chest x-ray was completed which showed no active cardiopulmonary disease. Subsequently she was seen by Dr. Erickson from cardiology associates and was taken for an urgent cardiac catheterization which demonstrated normal coronary arteries with a preserved systolic function with an ejection fraction of 50-55% and 4+ mitral valve regurgitation. A 2-D echocardiogram was also completed which showed a normal left ventricular size and systolic function with an ejection fraction between 55 and 60%, mild mitral valve regurgitation and trace tricuspid valve regurgitation. For further evaluation a transesophageal echocardiogram was completed which demonstrated mild thickening of the mitral valve leaflets with no significant prolapse and severe mitral valve regurgitation and mild to moderate tricuspid valve regurgitation with severe pulmonary hypertension. Her initial lab results showed a WBC count of 14.8, hemoglobin 11.3, BNP level 453 and troponins were negative. Currently the patient is on room air with oxygen saturations 95%. She reports that she feels 98% better. Due to the patient's presenting symptoms, cardiac catheterization results and CORINNE results Dr. Horowitz from cardiothoracic surgery was asked to evaluate the patient. Review of Systems A 14 point review of systems was completed and was negative except as mentioned in the HPI. Past Medical History Past Medical History: Atrial Fibrillation, Chest Pain / Angina, Heart Failure, GI Bleed (04/04/2018), Hypertension, Rheumatoid Arthritis (RA), Sleep Apnea/CPAP /BIPAP Additional Past Medical History / Comment(s): History of atrial fibrillation post-ablation and cardioversions, rheumatoid arthritis, hypertension, recent hospitalization for GI bleeds related to a antral ulcer, anemia secondary to GI bleed, vertigo, liver lesion probably a meningioma and the patient will be having an outpatient MRI at a later stage, hypertension History of Any Multi-Drug Resistant Organisms: MRSA Year Discovered:: 2002 MDRO Source:: lt arm Past Surgical History: Appendectomy, Section, Heart Catheterization, Hysterectomy, Joint Replacement, Orthopedic Surgery, Tubal Ligation Additional Past Surgical History / Comment(s): PARTIAL HYSTERECTOMY, 7 KNEE SURGERIES= 0NE LEFT KNEE ARTHROSCOPY, and 5 RT KNEE ARTHROSCOPIES THEN TOTAL RT KNEE DONE & THEN TOTAL REVISION TO RT KNEE , PLACIDO. ACHILLES TENDON SURGERY- HAS SCREWS IN PLACIDO. HEELS, EYE SURGERY A CHILD(STRABISMUS), DENTAL IMPLANT BOTTOM LT., COLONOSCOPY WITH RANDOM BX-BENIGN, right shoulder sx x2 Past Anesthesia/Blood Transfusion Reactions: Previous Problems w/ Anesthesia, Family History of Problems w/ Anesthesia, Postoperative Nausea & Vomiting (PONV) Additional Past Anesthesia/Blood Transfusion Reaction / Comm: PT & HER MOTHER HAVE HX PONV Past Psychological History: No Psychological Hx Reported Smoking Status: Never smoker Past Alcohol Use History: Rare Past Drug Use History: None Reported - Past Family History Mother Family Medical History: Congestive Heart Failure (CHF), Diabetes Mellitus Additional Family Medical History / Comment(s): History of spinal stenosis, heavy smoker and IDDM. Mother at age 73yrs. Father Family Medical History: Diabetes Mellitus, Hypertension Additional Family Medical History / Comment(s): Heavy smoker, Father in his late 60's or early 70's. Medications and Allergies Home Medications Medication Instructions Recorded Confirmed Type Rivaroxaban [Xarelto] 20 mg PO HS 02/16/15 04/24/18 History Lisinopril [Zestril] 5 mg PO DAILY #30 tab 02/21/15 04/24/18 Rx Metoprolol Tartrate 25 mg PO BID #30 tab 08/21/17 04/24/18 Rx Flecainide Acetate [Tambocor] 100 mg PO Q12HR 11/20/17 04/24/18 History Ferrous Sulfate [Iron] 325 mg PO BID 04/24/18 04/24/18 History Nystatin 100,000 Unit/gm Powd 1 applic TOPICAL BID 04/24/18 04/24/18 History [Mycostatin Powder] Pantoprazole [Protonix] 40 mg PO BID 04/24/18 04/24/18 History Furosemide [Lasix] 40 mg PO BID #0 04/26/18 04/24/18 Rx Potassium Chloride [Klor-Con 20] 20 meq PO BID #0 04/26/18 04/24/18 Rx Allergies Allergy/AdvReac Type Severity Reaction Status Date / Time No Known Allergies Allergy Verified 04/24/18 09:23 Surgical - Exam Vital Signs Temp Pulse Resp BP Pulse Ox 98.3 F 77 34 H 150/78 100 04/24/18 01:19 04/24/18 01:19 04/24/18 01:19 04/24/18 01:19 04/24/18 01:19 - General well developed, well nourished, no distress, no pain, obese - Eyes PERRL, normal ocular movement - ENT normal pinna, normal nares, normal mucosa, no hearing loss, no congestion - Neck Neck is supple, no lymphadenopathy. no masses, no bruits, trachea midline, no venous distension - Respiratory Lung sounds are essentially clear throughout, few scattered crackles to her bilateral bases. Respirations are symmetrical and nonlabored. Oxygen saturation are 95% on room air. - Cardiovascular Regular rhythm and rate. S1 and S2 present, negative for S3, gallop or murmur. Bedside telemetry showing normal sinus rhythm heart rate 68. No edema present. - Abdomen Abdomen is soft, nontender and nondistended. Active bowel sounds all 4 abdominal quadrants. Passing flatus. No guarding or rigidity. - Genitourinary Deferred - Rectum Deferred - Integumentary no rash, no growths, no abnormal pigmentation - Neurologic normal coordination, normal sensation - Musculoskeletal normal gait, normal posture - Psychiatric oriented to time, oriented to person, oriented to place, speech is normal, memory intact Results - Labs 04/25/18 03:17 04/25/18 05:22 Abnormal Lab Results - Last 24 Hours (Table) 04/25/18 04/25/18 Range/Units 03:17 03:17 WBC 10.9 H (3.8-10.6) k/uL RBC 3.50 L (3.80-5.40) m/uL Hgb 10.6 L (11.4-16.0) gm/dL Hct 31.9 L (34.0-46.0) % RDW 15.7 H (11.5-15.5) % Potassium 6.0 H (3.5-5.1) mmol/L BUN 22 H (7-17) mg/dL Glucose 114 H (74-99) mg/dL Diabetes panel 04/24/18 04/25/18 04/25/18 Range/Units 03:27 03:17 05:22 Sodium 139 (137-145) mmol/L Potassium 6.0 H 4.2 (3.5-5.1) mmol/L Chloride 106 (98-107) mmol/L Carbon Dioxide 23 (22-30) mmol/L BUN 22 H (7-17) mg/dL Creatinine 0.58 (0.52-1.04) mg/dL Glucose 114 H (74-99) mg/dL Hemoglobin A1c 4.9 (4.0-6.0) % Calcium 9.2 (8.4-10.2) mg/dL Calcium panel 04/25/18 Range/Units 03:17 Calcium 9.2 (8.4-10.2) mg/dL Pituitary panel 04/25/18 04/25/18 Range/Units 03:17 05:22 Sodium 139 (137-145) mmol/L Potassium 6.0 H 4.2 (3.5-5.1) mmol/L Chloride 106 (98-107) mmol/L Carbon Dioxide 23 (22-30) mmol/L BUN 22 H (7-17) mg/dL Creatinine 0.58 (0.52-1.04) mg/dL Glucose 114 H (74-99) mg/dL Calcium 9.2 (8.4-10.2) mg/dL Adrenal panel 04/25/18 04/25/18 Range/Units 03:17 05:22 Sodium 139 (137-145) mmol/L Potassium 6.0 H 4.2 (3.5-5.1) mmol/L Chloride 106 (98-107) mmol/L Carbon Dioxide 23 (22-30) mmol/L BUN 22 H (7-17) mg/dL Creatinine 0.58 (0.52-1.04) mg/dL Glucose 114 H (74-99) mg/dL Calcium 9.2 (8.4-10.2) mg/dL - Imaging Comments: Cardiac catheterization, 2-D echocardiogram and CORINNE results reviewed. Chest x-ray: report reviewed, image reviewed EKG: image reviewed Assessment and Plan (1) Rheumatoid arthritis Current Visit: Yes Status: Acute Code(s): M06.9 - RHEUMATOID ARTHRITIS, UNSPECIFIED SNOMED Code(s): 12585210 (2) History of anemia Current Visit: Yes Status: Acute Code(s): Z86.2 - PRSNL HISTORY OF DIS OF THE BLD/BLD-FORM ORG[facility]IM[facility]UN [facility] SNOM[facility] Code(s): 832363658 (3) History of upper gastrointestinal bleeding Current Visit: Yes Status: Acute Code(s): Z87.19 - PERSONAL HISTORY OF OTHER DISEASES OF THE DIGESTIVE SYSTEM SNOMED Code(s): 715199126 (4) Severe mitral valve regurgitation Current Visit: Yes Status: Acute Code(s): I34.0 - NONRHEUMATIC MITRAL (VALVE ) INSUFFICIENCY SNOMED Code(s): 11187480 (5) Left bundle branch block Current Visit: Yes Status: Acute Code(s): I44.7 - LEFT BUNDLE-BRANCH BLOCK, UNSPECIFIED SNOMED Code(s): 27491099 (6) Dyspnea Current Visit: No Status: Acute Code(s): R06.00 - DYSPNEA, UNSPECIFIED SNOMED Code(s): 873689534 (7) HTN (hypertension) Current Visit: No Status: Acute Code(s): I10 - ESSENTIAL (PRIMARY) HYPERTENSION SNOMED Code(s): 63427423 (8) Paroxysmal a-fib Current Visit: No Status: Acute Code(s): I48.0 - PAROXYSMAL ATRIAL FIBRILLATION SNOMED Code(s): 762909312 Plan: The patient was seen and examined. Chart diagnostics were reviewed. Her case was discussed with Dr. Horowitz from cardiothoracic surgery. Preoperative testing initiated. Preoperative teaching initiated. Dr. Victor has discussed with Dr. Horowitz the patient's case and the patient will be seen in the office by Dr. Horowitz on an outpatient basis to discuss surgical options. Cardiology management per Dr. Victor's recommendations, pulmonary management per Dr. Gray's recommendations. Thank you Dr. Victor for this consult and we look for to working with you in the care of your patient. Time with Patient: Greater than 30 <Torrey Horowitz R - Last Filed: 04/26/18 11:59> Surgical - Exam Vital Signs Temp Pulse Resp BP Pulse Ox 98.3 F 77 34 H 150/78 100 04/24/18 01:19 04/24/18 01:19 04/24/18 01:19 04/24/18 01:19 04/24/18 01:19 Results - Labs 04/25/18 03:17 04/26/18 06:23 Abnormal Lab Results - Last 24 Hours (Table) 04/25/18 04/25/18 04/26/18 Range/Units 05:22 17:39 06:23 BUN 20 H (7-17) mg/dL LDL Cholesterol, Calc 118 H (0-99) mg/dL HDL Cholesterol 39 L (40-60) mg/dL TSH 0.308 L (0.465-4.680) mIU/L Urine Protein Trace H (Negative) Urine Blood Trace H (Negative) Ur Leukocyte Esterase Trace H (Negative) Urine RBC 6 H (0-5) /hpf Urine Bacteria Rare H (None) /hpf Urine Mucus Rare H (None) /hpf Microbiology - Last 24 Hours (Table) 04/25/18 17:39 Nasal Screen MRSA/MSSA - Preliminary Nasal Swab 04/25/18 17:39 Urine Culture - Preliminary Urine,Catheterized Diabetes panel 04/24/18 04/25/18 04/26/18 Range/Units 03:27 05:22 06:23 Sodium 138 (137-145) mmol/L Potassium 4.2 (3.5-5.1) mmol/L Chloride 101 (98-107) mmol/L Carbon Dioxide 26 (22-30) mmol/L BUN 20 H (7-17) mg/dL Creatinine 0.73 (0.52-1.04) mg/dL Glucose 98 (74-99) mg/dL Hemoglobin A1c 4.9 (4.0-6.0) % Calcium 9.4 (8.4-10.2) mg/dL Triglycerides 86 (<150) mg/dL HDL Cholesterol 39 L (40-60) mg/dL Thyroid panel 04/25/18 Range/Units 05:22 TSH 0.308 L (0.465-4.680) mIU/L Calcium panel 04/26/18 Range/Units 06:23 Calcium 9.4 (8.4-10.2) mg/dL Pituitary panel 04/25/18 04/26/18 Range/Units 05:22 06:23 Sodium 138 (137-145) mmol/L Potassium 4.2 (3.5-5.1) mmol/L Chloride 101 (98-107) mmol/L Carbon Dioxide 26 (22-30) mmol/L BUN 20 H (7-17) mg/dL Creatinine 0.73 (0.52-1.04) mg/dL Glucose 98 (74-99) mg/dL Calcium 9.4 (8.4-10.2) mg/dL TSH 0.308 L (0.465-4.680) mIU/L Adrenal panel 04/26/18 Range/Units 06:23 Sodium 138 (137-145) mmol/L Potassium 4.2 (3.5-5.1) mmol/L Chloride 101 (98-107) mmol/L Carbon Dioxide 26 (22-30) mmol/L BUN 20 H (7-17) mg/dL Creatinine 0.73 (0.52-1.04) mg/dL Glucose 98 (74-99) mg/dL Calcium 9.4 (8.4-10.2) mg/dL Assessment and Plan Assessment: Obese female with long histroy of exertional dyspnea and PAF. CORINNE shows sever central MR. Plan MV repair and Mauricio maze next week. D/W patient indications for surgery, risks vs benefits and possible complications. All questions answered.
--- NOTE | 2018-04-25 17:01 | US ---
EXAMINATION TYPE: US carotid duplex BILAT DATE OF EXAM: 04/25/2018 COMPARISON: NONE CLINICAL HISTORY: Preoperative cardiac surgery. HTN controlled with meds. No high cholesterol. No h x of tia or stroke. precabg. Exam was performed portable in ICU, unable to fully darken room. EXAM MEASUREMENTS: RIGHT: Peak Systolic Velocity (PSV) cm/sec ----- Right CCA: 87.5 ----- Right ICA: 112.1 ----- Right ECA: 106.9 ICA/CCA ratio: 1.3 RIGHT: End Diastole cm/sec ----- Right CCA: 26.7 ----- Right ICA: 40.9 ----- Right ECA: 16.3 LEFT: Peak Systolic Velocity (PSV) cm/sec ----- Left CCA: 109.5 ----- Left ICA: 112.1 ----- Left ECA: 148.0 ICA/CCA ratio: 1.0 LEFT: End Diastole cm/sec ----- Left CCA: 29.2 ----- Left ICA: 35.7 ----- Left ECA: 12.3 VERTEBRALS (direction of flow): Right Vertebral: Antegrade Left Vertebral: Antegrade Rhythm: Normal Bilateral wall thickening. Elevated Left prox CCA and left ECA. No plaque. No significant stenosis . IMPRESSION: There is some elevated velocity in the left external carotid artery. There is no signifi cant stenosis seen on the images. There is antegrade flow in the vertebral arteries. Images in measurements suggest less than 25% steno sis in both internal carotid arteries. Criteria for Assigning % of Stenosis / Diameter reduction (Estimation based on the indirect measurements of the internal carotid artery velocities (ICA PSV). 1. Normal (no stenosis)=ICA PSV < 125 cm/s: ratio < 2.0: ICA EDV<40 cm/s. 2. Less than 50% stenosis=ICA PSV < 125 cm/s: ratio < 2.0: ICA EDV<40 cm/s. 3. 50 to 69% stenosis=ICA PSV of 125 to 230 cm/s: ration 2.0 ? 4.0: ICA EDV 40-100 cm/s. 4. Greater than 70% stenosis to near occlusion= ICA PSV > 230 cm/s: ratio > 4.0: ICA EDV > 100 cm/s. 5. Near occlusion= ICA PSV velocities may be low or undetectable: variable ratio and ICA EDV. 6. Total occlusion=unable to detect flow.
[2018-04-25] MEDS: RIVAROXABAN 20 MG TAB PO SCH (17:46)
[2018-04-25 18:39] LABS: T4, Free (Free Thyroxine) 1.46 ng/dL (0.78-2.19)
[2018-04-25 20:15] LABS: Appearance,Urine Clear (Clear); Bacteria,Urine Rare /hpf; Bilirubin,Urine Negative (Negative); Blood,Urine Trace (Negative); Color,Urine Yellow; Glucose,Urine (UA) Negative (Negative); Ketones,Urine Negative (Negative); Leukocyte Esterase,Urine Trace (Negative); Mucus,Urine Rare /hpf; Nitrite,Urine Negative (Negative); PH, Urine 5.5 (5.0-8.0); Protein,Urine Trace (Negative); RBC,Urine 6 /hpf (0-5); Specific Gravity,Urine 1.023 (1.001-1.035); Squamous Epithelial Cell,Urine <1 /hpf (0-4); Urobilinogen,Urine <2.0 mg/dL (<2.0); WBC,Urine 4 /hpf (0-5)
[2018-04-25] MEDS ORDERED: ONDANSETRON 4 MG/2 ML VIAL IVP PRN (20:16)
[2018-04-25] MEDS ORDERED: ONDANSETRON 4 MG/2 ML VIAL ONE (20:19)
[2018-04-26 00:43] VITALS: RESP 16
[2018-04-26 04:04] LABS: Hepatitis A Antibody IgM Non-Reactive (Non-Reactive); Hepatitis B Core IgM Non-Reactive (Non-Reactive)
[2018-04-26] MEDS: FERROUS SULFATE 325 MG TAB PO SCH (06:48)
[2018-04-26] MEDS: PANTOPRAZOLE 40 MG TABLET PO SCH (06:48)
[2018-04-26 07:22] LABS: Anion Gap 11 mmol/L; Blood Urea Nitrogen 20 mg/dL (7-17); Calcium 9.4 mg/dL (8.4-10.2); Carbon Dioxide 26 mmol/L (22-30); Chloride 101 mmol/L (98-107); Glucose 98 mg/dL (74-99); Potassium 4.2 mmol/L (3.5-5.1); Sodium 138 mmol/L (137-145)
[2018-04-26] MEDS: FUROSEMIDE 10 MG/ML 4 ML VIAL IV SCH (09:34)
[2018-04-26] MEDS: METOPROLOL TARTRATE 25 MG TAB PO SCH (09:34)
[2018-04-26] MEDS: LISINOPRIL 5 MG TAB PO SCH (09:34)
[2018-04-26] MEDS: POTASSIUM CHLORIDE ER 20 MEQ TAB.ER PO SCH (09:34)
--- NOTE | 2018-04-26 09:51 | P.PN ---
Subjective Progress Note Date: 04/26/18 Principal diagnosis: Severe mitral valve regurgitation, history of paroxysmal atrial fibrillation on Xarelto, hypertension, hyperlipidemia, rheumatoid arthritis, obesity with BMI of 40, history of obstructive sleep apnea with home CPAP machine, rheumatoid arthritis, recent history of anemia and was found to have a large ulcer to the antrum of her stomach which was diagnosed at [facility]. Patient is sitting up to the bedside edge. She is in no acute distress. She reports that she feels 98% better today than she did on her admission. She denies any further complaints of shortness of breath or chest pain. Currently on room air with oxygen saturations 94%. She is achieving 1850 mL on her incentive spirometry. senior technical trainer in the telemetry room reports the patient had a 27 beat run of ventricular tachycardia last evening around 4 PM. Objective - Vital Signs Vital signs: Vital Signs Temp 97.4 F L 04/26/18 07:48 Pulse 74 04/26/18 08:00 Resp 16 04/26/18 07:48 BP 145/66 04/26/18 07:48 Pulse Ox 97 04/26/18 07:48 Intake & Output 04/25/18 04/26/18 04/26/18 18:59 06:59 18:59 Intake Total 520 20 Output Total 1385 105 Balance -1385 415 20 Weight 105.1 kg Intake: IV 40 20 Invasive Line 1 20 10 Invasive Line 2 20 10 Oral 480 Output: Urine 1385 105 Other: Voiding Method Indwelling Catheter Toilet # Voids 2 - Constitutional General appearance: Present: cooperative, morbidly obese, no acute distress - Respiratory Details: Lung sounds essentially clear throughout, few scattered crackles to bilateral bases. Respirations are symmetrical and nonlabored. Oxygen saturation are 94% on room air. She is achieving 1850 mL on her incentive spirometry. Bedside FEV1 completed yesterday by pulmonary which was 52% of predicted value. - Cardiovascular Details: Regular rhythm and rate. S1 and S2 present, negative for S3, gallop or murmur. Remote telemetry showing normal sinus rhythm heart rate 64. No edema present. - Gastrointestinal Gastrointestinal Comment(s): Abdomen is soft, nontender and nondistended. Active bowel sounds all 4 abdominal quadrants. No guarding or rigidity. No organomegaly. - Genitourinary Genitourinary Comment(s): Voiding clear yellow urine. Adequate urine output. - Integumentary Integumentary Comment(s): Skin is warm and dry. No clubbing or cyanosis present. No rash or abnormal pigmentation present. - Neurologic Neurologic: Present: CNII-XII intact - Musculoskeletal Musculoskeletal: Present: gait normal, strength equal bilaterally - Psychiatric Psychiatric: Present: A&O x's 3, appropriate affect, intact judgment & insight - Allied health notes Allied health notes reviewed: nursing - Labs CBC & Chem 7: 04/25/18 03:17 04/26/18 06:23 Labs: Abnormal Lab Results - Last 24 Hours (Table) 04/25/18 04/25/18 04/26/18 Range/Units 05:22 17:39 06:23 BUN 20 H (7-17) mg/dL LDL Cholesterol, Calc 118 H (0-99) mg/dL HDL Cholesterol 39 L (40-60) mg/dL TSH 0.308 L (0.465-4.680) mIU/L Urine Protein Trace H (Negative) Urine Blood Trace H (Negative) Ur Leukocyte Esterase Trace H (Negative) Urine RBC 6 H (0-5) /hpf Urine Bacteria Rare H (None) /hpf Urine Mucus Rare H (None) /hpf Microbiology - Last 24 Hours (Table) 04/25/18 17:39 Nasal Screen MRSA/MSSA - Preliminary Nasal Swab 04/25/18 17:39 Urine Culture - Preliminary Urine,Catheterized Assessment and Plan (1) Rheumatoid arthritis Current Visit: Yes Status: Acute Code(s): M06.9 - RHEUMATOID ARTHRITIS, UNSPECIFIED SNOMED Code(s): 84915424 (2) History of anemia Current Visit: Yes Status: Acute Code(s): Z86.2 - PRSNL HISTORY OF DIS OF THE BLD[facility] Code(s): 699423916 (3) History of upper gastrointestinal bleeding Current Visit: Yes Status: Acute Code(s): Z87.19 - PERSONAL HISTORY OF OTHER DISEASES OF THE DIGESTIVE SYSTEM SNOMED Code(s): 437949034 (4) Severe mitral valve regurgitation Current Visit: Yes Status: Acute Code(s): I34.0 - NONRHEUMATIC MITRAL (VALVE ) INSUFFICIENCY SNOMED Code(s): 09775670 (5) Left bundle branch block Current Visit: Yes Status: Acute Code(s): I44.7 - LEFT BUNDLE-BRANCH BLOCK, UNSPECIFIED SNOMED Code(s): 96404636 (6) Dyspnea Current Visit: No Status: Acute Code(s): R06.00 - DYSPNEA, UNSPECIFIED SNOMED Code(s): 979400061 (7) HTN (hypertension) Current Visit: No Status: Acute Code(s): I10 - ESSENTIAL (PRIMARY) HYPERTENSION SNOMED Code(s): 03957089 (8) Paroxysmal a-fib Current Visit: No Status: Acute Code(s): I48.0 - PAROXYSMAL ATRIAL FIBRILLATION SNOMED Code(s): 608457697 Plan: 1. Continue flecainide, lisinopril, Xarelto and beta miguel angel. 2. Encourage use of her incentive spirometry every hour while awake. 3. Patient was seen and examined by Dr. Torrey Horowitz today, she will be scheduled for an elective mitral valve repair with maze procedure. 4. Okay to discharge home per the cardiothoracic standpoint when okayed by admitting physician. 5. 5 m walk test completed time 1:4.63 seconds, time 2: 4.66 seconds, time 3: 4.18 seconds. 6. STS risk score was calculated and discussed with the patient by Dr. Horowitz. 7. More recommendations to follow based on patient's clinical course. Time with Patient: Greater than 30
[2018-04-26] MEDS: FLECAINIDE 50 MG TAB PO SCH (10:34)
--- NOTE | 2018-04-26 11:03 | XR ---
EXAMINATION TYPE: XR chest 1V DATE OF EXAM: 04/26/2018 COMPARISON: 04/25/2018 HISTORY: Shortness of breath TECHNIQUE: Single frontal view of the chest is obtained. FINDINGS: There is no focal air space opacity, pleural effusion, or pneumothorax seen. The cardiac silhouette size is within normal limits. The osseous structures are intact. Density along the right heart border likely represents prominent cardiac fat pad. Heart size stable. No overt failure. Corre late for underlying COPD. Diffuse osteopenia and arthropathy of the shoulders. IMPRESSION: No acute process.
[2018-04-26 11:49] VITALS: BP 129/60; PULSE 59; TEMP 97.2
--- NOTE | 2018-04-26 13:03 | P.PN ---
Subjective Progress Note Date: 04/26/18 Principal diagnosis: Acute hypoxic respiratory failure secondary to pulmonary edema, new onset 4+ mitral regurgitation. 63-year-old female patient, obese with a BMI of 40, in addition to history of atrial fibrillation post-ablation, rheumatoid arthritis, hypertension who was recently admitted to [facility] in [place] for profound anemia and further investigation with an EGD and colonoscopy showed that the patient had a large clean-based ulcer in the antrum of the stomach. Biopsies were obtained. The patient was discharged home on oral iron and she was also given PPI. Anticoagulation was also stopped nontender the patient was taken Eliquis. The patient was at home and yesterday evening she became acutely short of breath. EKG showed a new left bundle branch block pattern. The patient was seen by cardiology and the patient underwent an emergent cardiac catheterization and the coronaries do not to be within normal limits and the patient was found to have a new onset grade 4 mitral regurgitation. This was not present especially that was able to obtain an echocardiogram on this patient that was done and [facility] on 04/05/2018 and the patient had a preserved LV function with an ejection fraction of 60-65% and the patient had a moderate to severe left atrial dilatation, [id number] mitral regurgitation and a RV size was essentially within normal limits. The patient came in to the ICU on a BiPAP. Currently she has been weaned down to 5 L of oxygen nasal cannula. She is receiving IV Lasix 40 mg every 12 hours and she has diuresed more than 1.5 L of urine output. She is feeling better. She is less short of breath. She is still a bit anxious. Hemoglobin is above 10. No palpitation. No chest pain. No cough. No sputum production. Chest x-ray was showing a component of pulmonary edema. The blood gases earlier showed a pH of 7.33 with a pCO2 of 43 and pO2 152 and this was on FiO2 of 50% while her being on a BiPAP. She has normal renal function. Troponins are negative. BNP level is at 453. On 04/25/2018 patient seen in follow-up in the intensive care unit. She did wear her BiPAP last night, patient does have underlying history of obstructive sleep apnea, she wears a CPAP on a regular basis at a pressure of 7 cm of water. Currently on 1 L per nasal cannula, her pulse ox is 98%, she is afebrile , she is sinus rhythm on the monitor, she had a heart catheterization yesterday which revealed normal coronary arteries. She is scheduled for CORINNE today in regards to new onset 4+ mitral regurgitation. She denies any chest pain or shortness of breath. Lung sounds are essentially clear. Today's labs have been noted, WBCs 10.9, hemoglobin is 10.6, sodium is 139, potassium is 4.2, BUN is 22, creatinine 0.58. Patient had a heart catheterization via right radial approach, the puncture site is tender to touch, no hematoma. 3 sets of troponins were negative. Today's chest x-ray showed cardiomegaly, persistent central vascularity. Patient remains on IV Lasix, 40 mg every 12 hours, maintaining negative fluid balance, -2500 over last 24 hours. And her weight is down by 3.8 kg On 04/26/2018 patient seen in follow-up on selective care unit, she is resting comfortably in bed, in no acute distress, no chest pain or shortness of breath, 97% on room air. Hemodynamically stable, afebrile, yesterday patient underwent CORINNE, which showed no evidence of mitral valve prolapse, and severe mitral regurgitation, cardiothoracic surgery has been consulted, and patient is scheduled for mitral valve repair, maze procedure, and left atrial appendage exclusion on 05/02/[address] Horowitz. Patient had her bedside spirometry, and it showed FEV1 of 52%, FVC at 55%, and FEV1/FVC ratio is 94% of predicted, consistent with restrictive pulmonary defect, however patient's effort during the test was noted to be suboptimal, and her underlying lung function may be underestimated, and some of the restriction could be stemming from the pulmonary edema that the patient initially presented with. He remains stable, she remains in sinus rhythm. Today's labs were noted. No acute events overnight, and will be discharged home today and she will be back next week for her surgery. Objective - Vital Signs Vital signs: Vital Signs Temp 97.2 F L 04/26/18 11:47 Pulse 59 L 04/26/18 11:49 Resp 16 04/26/18 11:47 BP 129/60 04/26/18 11:47 Pulse Ox 97 04/26/18 11:47 Intake & Output 04/25/18 04/26/18 04/26/18 18:59 06:59 18:59 Intake Total 520 520 Output Total 1385 105 Balance -1385 415 520 Weight 105.1 kg Intake: IV 40 40 Invasive Line 1 20 20 Invasive Line 2 20 20 Oral 480 480 Output: Urine 1385 105 Other: Voiding Method Indwelling Catheter Toilet # Voids 2 1 - Exam GENERAL EXAM: Alert, pleasant, obese 63-year-old white female, comfortable in no apparent distress. HEAD: Normocephalic/atraumatic. EYES: Normal reaction of pupils, equal size. Conjunctiva pink, sclera white. NOSE: Clear with pink turbinates. THROAT: No erythema or exudates. NECK: No masses, no JVD, no thyroid enlargement, no adenopathy. CHEST: No chest wall deformity. Symmetrical expansion. LUNGS: Equal air entry with no crackles, wheeze, rhonchi or dullness. CVS: Regular rate and rhythm, normal S1 and S2, distant heart sounds, no gallops , no murmurs, no rubs ABDOMEN: Soft, nontender. No hepatosplenomegaly, normal bowel sounds, no guarding or rigidity. EXTREMITIES: No clubbing, no edema, no cyanosis, 2+ pulses and upper and lower extremities. MUSCULOSKELETAL: Muscle strength and tone normal. SPINE: No scoliosis or deformity SKIN: No rashes CENTRAL NERVOUS SYSTEM: Alert and oriented -3. No focal deficits, tone is normal in all 4 extremities. PSYCHIATRIC: Alert and oriented -3. Appropriate affect. Intact judgment and insight. - Labs CBC & Chem 7: 04/25/18 03:17 04/26/18 06:23 Labs: Abnormal Lab Results - Last 24 Hours (Table) 04/25/18 04/25/18 04/26/18 Range/Units 05:22 17:39 06:23 BUN 20 H (7-17) mg/dL LDL Cholesterol, Calc 118 H (0-99) mg/dL HDL Cholesterol 39 L (40-60) mg/dL TSH 0.308 L (0.465-4.680) mIU/L Urine Protein Trace H (Negative) Urine Blood Trace H (Negative) Ur Leukocyte Esterase Trace H (Negative) Urine RBC 6 H (0-5) /hpf Urine Bacteria Rare H (None) /hpf Urine Mucus Rare H (None) /hpf Microbiology - Last 24 Hours (Table) 04/25/18 17:39 Nasal Screen MRSA/MSSA - Preliminary Nasal Swab 04/25/18 17:39 Urine Culture - Preliminary Urine,Catheterized Assessment and Plan Plan: Assessment: 1 acute hypoxic respiratory failure second to pulmonary edema in a sedation with a new onset mitral regurgitation as identified on cardiac catheterization. Patient required BiPAP support in the initial phases. Currently the patient on IV Lasix 40 mg every 12 hours and the patient is producing adequate amount of urine output and she is hemodynamically stable. Oxygenation is improved and the patient is currently down to 1 L of oxygen nasal cannula 2 normal coronary anatomy based on the recent cardiac catheterization that was done today 3 acute mitral regurgitation, severe, grade 4, he is scheduled for mitral valve repair, maze procedure and the atrial appendage exclusion by Dr. Horowitz on 05/02 4 recent hospitalization for GI bleed secondary to a antral ulcers, post-EGD and colonoscopy 5 rheumatoid arthritis 6 history of atrial fibrillation current rhythm is sinus and the patient is currently on Xarelto 7 liver lesion, possibly a hemangioma 8 hypertension 9 obstructive sleep apnea on CPAP therapy at a pressure of 7 cm of water Plan: Patient denies any acute complaints, no chest pain or shortness of breath, bedside spirometry results were noted, patient's effort during the spirometry was suboptimal, so her underlying lung function could be underestimated, and there is a component of restriction which could be related to pulmonary edema, which improved. Otherwise patient remains stable, she is currently on room air , lung sounds are clear. Patient is going to be discharged home today, and her surgery for repair of the mitral valve is scheduled for 05/02/2018. I performed a history & physical examination of the patient and discussed their management with my nurse practitioner, Melly Murrell. I reviewed the nurse practitioner's note and agree with the documented findings and plan of care. Lung sounds are clear. The findings and the impression was discussed with the patient. I attest to the documentation by the nurse practitioner. Time with Patient: Less than 30
--- NOTE | 2018-04-26 13:07 | P.HPIM ---
History of Present Illness 63-year-old pleasant female came in with comments of shortness of breath, chest pain with minimally elevated troponins because of which the patient was thought to have non-ST elevation microinfarction subsequently underwent cardiac catheterization which did not show any significant atherosclerotic coronary occlusive disease but severe mitral regurgitation was identified at that time patient was also gerardo fibrillation patient does have known history of A. fib had ablation procedures in the past subsequently transesophageal echocardiogram was often because of her questionable mitral regurgitation which did show severe mitral regurgitation. Patient was found to have pulmonary edema was on IV Lasix with improved symptoms. Patient had normal ejection fraction. Cardiac thoracic surgery was consulted because of the severe mitral regurgitation. Patient will be brought back for mitral valve replacement and modified Mauricio-Maze procedure for atrial fibrillation. Patient is on anticoagulation with Xeralto. Today patient is clinically doing well no shortness of breath no chest pain chest x-ray did not show any continued pulmonary edema patient will be discharged with 40 twice a day of Lasix. Patient was on 40 twice a day of Lasix which was cut down to 40 daily as an outpatient. Review of Systems REVIEW OF SYSTEMS: CONSTITUTIONAL: No fever, no malaise, no fatigue. HEENT: No recent visual problems or hearing problems. Denied any sore throat. CARDIOVASCULAR: No chest pain, orthopnea, PND, no palpitations, no syncope. PULMONARY: No shortness of breath, no cough, no hemoptysis. GASTROINTESTINAL: No diarrhea, no nausea, no vomiting, no abdominal pain. Normoactive bowel sounds. NEUROLOGICAL: No headaches, no weakness, no numbness. HEMATOLOGICAL: Denies any bleeding or petechiae. GENITOURINARY: Denies any burning micturition, frequency, or urgency. MUSCULOSKELETAL/RHEUMATOLOGICAL: Denies any joint pain, swelling, or any muscle pain. ENDOCRINE: Denies any polyuria or polydipsia. The rest of the 14-point review of systems is negative. Past Medical History Past Medical History: Atrial Fibrillation, Chest Pain / Angina, Heart Failure, GI Bleed (04/04/2018), Hypertension, Rheumatoid Arthritis (RA), Sleep Apnea/CPAP /BIPAP Additional Past Medical History / Comment(s): History of atrial fibrillation post-ablation and cardioversions, rheumatoid arthritis, hypertension, recent hospitalization for GI bleeds related to a antral ulcer, anemia secondary to GI bleed, vertigo, liver lesion probably a meningioma and the patient will be having an outpatient MRI at a later stage, hypertension History of Any Multi-Drug Resistant Organisms: MRSA Date of last positivie culture/infection: 2002 MDRO Source:: lt arm Past Surgical History: Appendectomy, Section, Heart Catheterization, Hysterectomy, Joint Replacement, Orthopedic Surgery, Tubal Ligation Additional Past Surgical History / Comment(s): PARTIAL HYSTERECTOMY, 7 KNEE SURGERIES= 0NE LEFT KNEE ARTHROSCOPY, and 5 RT KNEE ARTHROSCOPIES THEN TOTAL RT KNEE DONE & THEN TOTAL REVISION TO RT KNEE , PLACIDO. ACHILLES TENDON SURGERY- HAS SCREWS IN PLACIDO. HEELS, EYE SURGERY A CHILD(STRABISMUS), DENTAL IMPLANT BOTTOM LT., COLONOSCOPY WITH RANDOM BX-BENIGN, right shoulder sx x2 Past Anesthesia/Blood Transfusion Reactions: Previous Problems w/ Anesthesia, Family History of Problems w/ Anesthesia, Postoperative Nausea & Vomiting (PONV) Additional Past Anesthesia/Blood Transfusion Reaction / Comment(s): PT & HER MOTHER HAVE HX PONV Past Psychological History: No Psychological Hx Reported Smoking Status: Never smoker Past Alcohol Use History: Rare Past Drug Use History: None Reported - Past Family History Mother Family Medical History: Congestive Heart Failure (CHF), Diabetes Mellitus Additional Family Medical History / Comment(s): History of spinal stenosis, heavy smoker and IDDM. Mother at age 73yrs. Father Family Medical History: Diabetes Mellitus, Hypertension Additional Family Medical History / Comment(s): Heavy smoker, Father in his late 60's or early 70's. Medications and Allergies Home Medications Medication Instructions Recorded Confirmed Type Rivaroxaban [Xarelto] 20 mg PO HS 02/16/15 04/24/18 History Lisinopril [Zestril] 5 mg PO DAILY #30 tab 02/21/15 04/24/18 Rx Metoprolol Tartrate 25 mg PO BID #30 tab 08/21/17 04/24/18 Rx Flecainide Acetate [Tambocor] 100 mg PO Q12HR 11/20/17 04/24/18 History Ferrous Sulfate [Iron] 325 mg PO BID 04/24/18 04/24/18 History Nystatin 100,000 Unit/gm Powd 1 applic TOPICAL BID 04/24/18 04/24/18 History [Mycostatin Powder] Pantoprazole [Protonix] 40 mg PO BID 04/24/18 04/24/18 History Furosemide [Lasix] 40 mg PO BID #0 04/26/18 04/24/18 Rx Potassium Chloride [Klor-Con 20] 20 meq PO BID #0 04/26/18 04/24/18 Rx Allergies Allergy/AdvReac Type Severity Reaction Status Date / Time No Known Allergies Allergy Verified 04/24/18 09:23 Physical Exam Vitals: Vital Signs Temp Pulse Pulse Pulse Resp BP BP 04/26/18 11:49 59 L 04/26/18 11:47 97.2 F L 59 L 16 129/60 04/26/18 08:00 74 04/26/18 07:48 97.4 F L 74 16 145/66 04/26/18 04:00 97.4 F L 59 L 59 L 14 148/66 04/26/18 00:00 97.8 F 69 69 16 128/76 04/25/18 20:29 98.4 F 64 18 117/57 04/25/18 19:00 67 17 117/57 04/25/18 18:00 64 19 138/62 04/25/18 17:00 67 18 133/63 04/25/18 16:00 98.1 F 65 16 127/59 04/25/18 15:00 69 18 119/57 04/25/18 14:00 71 17 129/59 04/25/18 13:32 73 17 123/53 04/25/18 13:17 88 19 133/64 04/25/18 13:00 67 18 94/46 Pulse Ox 04/26/18 11:49 04/26/18 11:47 97 04/26/18 08:00 04/26/18 07:48 97 04/26/18 04:00 100 04/26/18 00:00 94 L 04/25/18 20:29 98 04/25/18 19:00 94 L 04/25/18 18:00 97 04/25/18 17:00 95 04/25/18 16:00 94 L 04/25/18 15:00 98 04/25/18 14:00 96 04/25/18 13:32 98 04/25/18 13:17 94 L 04/25/18 13:00 98 Intake and Output 04/25/18 04/26/18 04/26/18 22:59 06:59 14:59 Intake Total 520 520 Output Total 225 Balance -225 520 520 Intake: IV 40 40 Invasive Line 1 20 20 Invasive Line 2 20 20 Oral 480 480 Output: Urine 225 Other: Voiding Method Indwelling Catheter Toilet # Voids 2 1 Weight 105.1 kg PHYSICAL EXAMINATION: GENERAL: The patient is alert and oriented x3, not in any acute distress. Well developed, well nourished. HEENT: Pupils are round and equally reacting to light. EOMI. No scleral icterus. No conjunctival pallor. Normocephalic, atraumatic. No pharyngeal erythema. No thyromegaly. CARDIOVASCULAR: S1 and S2 present. No murmurs, rubs, or gallops. PULMONARY: Chest is clear to auscultation, no wheezing or crackles. ABDOMEN: Soft, nontender, nondistended, normoactive bowel sounds. No palpable organomegaly. MUSCULOSKELETAL: No joint swelling or deformity. EXTREMITIES: No cyanosis, clubbing, or pedal edema. NEUROLOGICAL: Gross neurological examination did not reveal any focal deficits. SKIN: No rashes. Results CBC & Chem 7: 04/25/18 03:17 04/26/18 06:23 Labs: Abnormal Lab Results - Last 24 Hours (Table) 04/25/18 04/25/18 04/26/18 Range/Units 05:22 17:39 06:23 BUN 20 H (7-17) mg/dL LDL Cholesterol, Calc 118 H (0-99) mg/dL HDL Cholesterol 39 L (40-60) mg/dL TSH 0.308 L (0.465-4.680) mIU/L Urine Protein Trace H (Negative) Urine Blood Trace H (Negative) Ur Leukocyte Esterase Trace H (Negative) Urine RBC 6 H (0-5) /hpf Urine Bacteria Rare H (None) /hpf Urine Mucus Rare H (None) /hpf Microbiology - Last 24 Hours (Table) 04/25/18 17:39 Nasal Screen MRSA/MSSA - Preliminary Nasal Swab 04/25/18 17:39 Urine Culture - Preliminary Urine,Catheterized Thrombosis Risk Factor Assmnt - Choose All That Apply Each Factor Represents 1 point: Heart failure (<1month) Each Risk Factor Represents 2 Points: Age 61-74 years Other congenital or acquired thrombophilia - If yes, enter type in comment: No Thrombosis Risk Factor Assessment Total Risk Factor Score: 3 Thrombosis Risk Factor Assessment Level: Moderate Risk Assessment and Plan Plan: -Shotness of breath on admission which resolved now secondary to chronic diastolic dysfunction with acute exacerbation along with mitral regurgitation Lasix dosing as mentioned in the history. Patient is presently euvolemic at this time. -Severe mitral regurgitation: Patient will come back for mitral valve replacement -Atrial fibrillation presently rate controlled sinus rhythm continue with anticoagulation will be discharged today Rheumatoid arthritis -Hypertension Patient will be discharged today and will come back for mitral valve replacement
--- NOTE | 2018-04-26 13:07 | P.DS ---
Providers Date of admission: 04/24/18 02:00 Attending physician: Anna Fajardo Consults: 04/24/18 01:32 Consult Physician Stat Consulting Provider: [facility] Consult Reason/Comments: STEMI ACTIVATION COMPLETE Do you want consulting provider notified?: Yes 04/24/18 02:53 Consult Physician Routine Consulting Provider: Jimmy Fuller Consult Reason/Comments: dyspnea Do you want consulting provider notified?: Yes, Notify in am 04/25/18 13:23 Consult Physician Routine Consulting Provider: Torrey Horowitz Consult Reason/Comments: mr Do you want consulting provider notified?: Yes 04/25/18 15:27 Consult Physician Stat Consulting Provider: Torrey Horowitz Consult Reason/Comments: MVR Do you want consulting provider notified?: Yes 04/25/18 17:09 Consult Physician Stat Consulting Provider: Ralph Erickson Consult Reason/Comments: MVR Do you want consulting provider notified?: Already Contacted Primary care physician: [facility] Course: As mentioned in HPI Patient Condition at Discharge: Stable Plan - Discharge Summary Discharge Rx Participant: Yes New Discharge Prescriptions: Continue Rivaroxaban [Xarelto] 20 mg PO HS Lisinopril [Zestril] 5 mg PO DAILY #30 tab Metoprolol Tartrate 25 mg PO BID #30 tab Flecainide Acetate [Tambocor] 100 mg PO Q12HR Nystatin 100,000 Unit/gm Powd [Mycostatin Powder] 1 applic TOPICAL BID Pantoprazole [Protonix] 40 mg PO BID Ferrous Sulfate [Iron] 325 mg PO BID Changed Furosemide [Lasix] 40 mg PO BID #0 Potassium Chloride [Klor-Con 20] 20 meq PO BID #0 Discharge Medication List Rivaroxaban [Xarelto] 20 mg PO HS 02/16/15 [History] Lisinopril [Zestril] 5 mg PO DAILY #30 tab 02/21/15 [Rx] Metoprolol Tartrate 25 mg PO BID #30 tab 08/21/17 [Rx] Flecainide Acetate [Tambocor] 100 mg PO Q12HR 11/20/17 [History] Ferrous Sulfate [Iron] 325 mg PO BID 04/24/18 [History] Nystatin 100,000 Unit/gm Powd [Mycostatin Powder] 1 applic TOPICAL BID 04/24/18 [History] Pantoprazole [Protonix] 40 mg PO BID 04/24/18 [History] Furosemide [Lasix] 40 mg PO BID #0 04/26/18 [Rx] Potassium Chloride [Klor-Con 20] 20 meq PO BID #0 04/26/18 [Rx] Follow up Appointment(s)/Referral(s): Caro Victor MD [STAFF PHYSICIAN] - 1 Week (post surgery with next hospital visit) Jewel Santiago MD [Primary Care Provider] - 1-2 days () Torrey Horowitz MD [STAFF PHYSICIAN] - 05/02/18 8:00 am (Scheduled for open heart surgery at [facility] at 0800 on 05/02/[address] Horowitz.) Patient Instructions/Handouts: *Surgery [facility] - After Heart Catheterization - Emergency Veterinary Assistant Instructions, Left Heart Catheterization (DC) Activity/Diet/Wound Care/Special Instructions: Last dose of xarelto prior to surgery is MondayApril 29 Discharge Disposition: HOME SELF-CARE
--- NOTE | 2018-04-26 14:31 | P.PN ---
Subjective Progress Note Date: 04/26/18 This is a 63-year-old female with known history of hypertension, paroxysmal atrial fibrillation, who presented to the emergency room with symptoms of jaw discomfort and significant dyspnea. Patient was seen in consultation by Dr. Syed and recommended to undergo cardiac catheterization which was performed by Dr. Victor. Cardiac catheterization revealed normal coronary arteries with preserved systolic function, 4+ mitral regurgitation. Subsequent to that patient underwent a transesophageal echocardiogram yesterday which revealed a dilated left atrium with normal appearing left atrial appendage. Normal left ventricular size and systolic function. Mild thickening of the mitral valve leaflets with no significant prolapse, severe mitral regurgitation. Patient was seen in consultation by cardiothoracic surgery, and is scheduled to undergo valve replacement on the of this month. Hemodynamically the patient is stable, blood pressure 128/60 with a heart rate in the 60s. 97% on room air. Sodium and 38, potassium 4.2, BUN 20, creatinine 0.7. Objective - Vital Signs Vital signs: Vital Signs Temp 97.2 F L 04/26/18 11:47 Pulse 59 L 04/26/18 11:49 Resp 16 04/26/18 11:47 BP 129/60 04/26/18 11:47 Pulse Ox 97 04/26/18 11:47 Intake & Output 04/25/18 04/26/18 04/26/18 18:59 06:59 18:59 Intake Total 520 520 Output Total 1385 105 Balance -1385 415 520 Weight 105.1 kg Intake: IV 40 40 Invasive Line 1 20 20 Invasive Line 2 20 20 Oral 480 480 Output: Urine 1385 105 Other: Voiding Method Indwelling Catheter Toilet # Voids 2 1 - Exam PHYSICAL EXAMINATION: GENERAL: This is a 63-year-old female in no acute distress at the time of my examination HEENT: Head is atraumatic, normocephalic. Pupils equal, round. Sclera anicteric. Conjunctiva are clear. Mucous membranes of the mouth are moist. Neck is supple. There is no elevated jugular venous pressure. No carotid bruit is heard. HEART EXAMINATION: Heart S1, S2 systolic ejection murmur heard . No murmur or gallop heard. CHEST EXAMINATION: Lungs are clear to auscultation and precussion. No chest wall tenderness is noted on palpation or with deep breathing. ABDOMEN: Soft, nontender. Bowel sounds are heard. No organomegaly noted. EXTREMITIES: 2+ peripheral pulses with no evidence of peripheral edema and no calf tenderness noted. NEUROLOGIC patient is awake, alert and oriented X3. . - Labs CBC & Chem 7: 04/25/18 03:17 04/26/18 06:23 Labs: Abnormal Lab Results - Last 24 Hours (Table) 04/25/18 04/25/18 04/26/18 Range/Units 05:22 17:39 06:23 BUN 20 H (7-17) mg/dL LDL Cholesterol, Calc 118 H (0-99) mg/dL HDL Cholesterol 39 L (40-60) mg/dL TSH 0.308 L (0.465-4.680) mIU/L Urine Protein Trace H (Negative) Urine Blood Trace H (Negative) Ur Leukocyte Esterase Trace H (Negative) Urine RBC 6 H (0-5) /hpf Urine Bacteria Rare H (None) /hpf Urine Mucus Rare H (None) /hpf Microbiology - Last 24 Hours (Table) 04/25/18 17:39 Nasal Screen MRSA/MSSA - Preliminary Nasal Swab 04/25/18 17:39 Urine Culture - Preliminary Urine,Catheterized Assessment and Plan Plan: Assessment and Plan: #1 systolic CHF acute on chronic #2 normal coronary anatomy based on the recent cardiac catheterization that was done today #3 acute mitral regurgitation, severe, grade 4, he is scheduled for mitral valve repair, maze procedure and the atrial appendage exclusion by Dr. Horowitz on 05/02/2018 #4 recent hospitalization for GI bleed secondary to a antral ulcers, post-EGD and colonoscopy #5 rheumatoid arthritis #6 history of paroxsysmal atrial fibrillation current rhythm is sinus and the patient is currently on Xarelto #7 HTN #8 Sleep apnea Plan From cardiology's perspective, patient may be able to be discharged home today. She will be back for surgery on the . She does not need a follow-up appointment with Dr. Victor in between that time. DNP note has been reviewed, I agree with a documented findings and plan of care. Patient was seen and examined.
--- NOTE | 2018-04-27 14:52 | P.PN ---
Progress Note - Text Progress Note Date: 04/27/18 Nasal screening swab was positive for MSSA, not MRSA. A prescription for mupirocin 2% ointment to be applied to each nostril twice a day was called into [facility] pharmacy and [place] per the patient's request.
== END 2018-04-26 12:49 | disposition home or self-care (01) | DRG 280 ==
LOC: EC 01:16 → 6ICU 02:00 → 6SEL 04-25 21:20
PROVIDERS: ADMIT Internal Medicine Cardiovascular Disease; ATTEND Internal Medicine
PROC: B2111ZZ Fluoroscopy of Multiple Coronary Arteries using Low Osmolar Contrast (ICD-10-PCS; 2018-04-24)
PROC: B2151ZZ Fluoroscopy of Left Heart using Low Osmolar Contrast (ICD-10-PCS; 2018-04-24)
PROC: 4A023N7 Measurement of Cardiac Sampling and Pressure, Left Heart, Percutaneous Approach (ICD-10-PCS; principal; 2018-04-24 02:08)
PROC: B246ZZ4 Ultrasonography of Right and Left Heart, Transesophageal (ICD-10-PCS; 2018-04-25)
DX: I21.3 ST elevation (STEMI) myocardial infarction of unspecified site (principal); I50.23 Acute on chronic systolic (congestive) heart failure; J96.01 Acute respiratory failure with hypoxia; Z68.41 Body mass index [BMI] 40.0-44.9, adult; I47.2 Ventricular tachycardia; E66.9 Obesity, unspecified; E78.5 Hyperlipidemia, unspecified; G47.33 Obstructive sleep apnea (adult) (pediatric); I11.0 Hypertensive heart disease with heart failure; I24.9 Acute ischemic heart disease, unspecified; I08.1 Rheumatic disorders of both mitral and tricuspid valves; I44.7 Left bundle-branch block, unspecified; I48.0 Paroxysmal atrial fibrillation; Z87.11 Personal history of peptic ulcer disease; M06.9 Rheumatoid arthritis, unspecified; M17.0 Bilateral primary osteoarthritis of knee; M19.012 Primary osteoarthritis, left shoulder; M19.011 Primary osteoarthritis, right shoulder; M19.041 Primary osteoarthritis, right hand; Z79.01 Long term (current) use of anticoagulants; Z82.49 Family history of ischemic heart disease and other diseases of the circulatory system; Z83.3 Family history of diabetes mellitus; K76.9 Liver disease, unspecified; Z90.710 Acquired absence of both cervix and uterus; Z96.651 Presence of right artificial knee joint; Z86.2 Personal history of diseases of the blood and blood-forming organs and certain disorders involving the immune mechanism; Z87.19 Personal history of other diseases of the digestive system; Z86.14 Personal history of Methicillin resistant Staphylococcus aureus infection; Z79.899 Other long term (current) drug therapy
CPT/HCPCS: 36415; 71045; 80048; 80053; 80061; 80074; 81001; 82550; 82553; 82805; 83036; 83735; 83880; 84132; 84439; 84443; 84484; 85025; 85027; 85610; 85730; 87070; 87086; 93306; 93312; 93320; 93325; 93458; 93880; 94150; 94640; 94660; 96365; 96375; 96376; 99291

== ENCOUNTER 2018-05-02 05:34 | Inpatient (IN) | payer BC ==
[~2018-05-02 05:34] MED LIST changes: +ALBUMIN HUMAN 25% 50 ML IV ONE; +ALBUMIN HUMAN 5% 500 ML IVPB ONE; +ASPIRIN 81 MG PO ONE; +ATORVASTATIN 10 MG TAB PO ONE; +CALCIUM CHLORIDE 100 MG/ML 10 ML SYRINGE IV ONE; +CARDIOPLEGIC SOLN (K+ 16 MEQ/L 1,000 ML with SODIUM BICARB (1 MEQ/ML) 20 ML, LIDOCAINE ... PERFUSION ONE; +CHLORHEXIDINE GLUCONATE 15 ML CUP MUCOUS MEM ONE; +CLEVIDIPINE BUTYRATE 25 MG in EMPTY BAG 1 BAG IV ONE; +HEPARIN SODIUM 1,000 UN/ML (10ML VL) IV ONE; +HEPARIN SODIUM,PORCINE 5,000 UNIT in SODIUM CHLORIDE 0.9% 500 ML 500 ML IV ONE; +INSULIN REGULAR 100 UNIT in SODIUM CHLORIDE 0.9% 100 ML IV ONE; +LACTATED RINGERS 1,000 ML IV ONE; +MAGNESIUM SULFATE MG 500 MG/ML IV ONE; +MANNITOL 25% 12.5 GM/50 ML VIAL IV ONE; +NITROGLYCERIN-D5W PMX 25 MG/250 ML BTL IV ONE; +NITROGLYCERIN-D5W PMX 50 MG in DEXTROSE/WATER 1 250ML.BAG IV ONE; +NOREPINEPHRINE 4 MG in SODIUM CHLORIDE 0.9% 250 ML IV ONE; +PHENYLEPHRINE 40 MG in SODIUM CHLORIDE 0.9% 250 ML IV ONE; +PHENYLEPHRINE-0.9% NACL SYG 1 MG/10 ML SYRINGE IV ONE; +PROPOFOL 1,000 MG/100 ML VIAL IV ONE; +PROTAMINE SULFATE 10 MG/ML 25 ML VIAL IV ONE; +PROTAMINE SULFATE 250 MG in EMPTY BAG 1 BAG IV ONE; +SODIUM BICARB 8.4% 50 ML SYR (1 MEQ/ML) IV ONE; +SODIUM CHLORIDE 0.9% 1,000 ML IV ONE; -SODIUM CHLORIDE 0.9% 1,000 ML IV SCH; +TRANEXAMIC ACID 2,000 MG in SODIUM CHLORIDE 0.9% 180 ML IV ONE; +ceFAZolin 1,000 MG in SODIUM CHLORIDE 0.9% IRRIGATIO 1,000 ML IRRIGATION ONE; +ceFAZolin 2,000 MG in SODIUM CHLORIDE 0.9% 30 ML IVPB ONE; +ceFAZolin IN SWFI 2 GM/20 ML SYRINGE IVP ONE
[2018-05-02] MEDS ORDERED: METOPROLOL TARTRATE 12.5 MG TAB PO ONE (06:00)
[2018-05-02] MEDS ORDERED: MAGNESIUM SULFATE 4 MEQ/ML 10ML VIAL ONE (07:54)
[2018-05-02] MEDS ORDERED: VECURONIUM 10 MG VIAL IV ONE (07:54)
[2018-05-02] MEDS ORDERED: GLYCOPYRROLATE 0.2 MG/ML 2 ML VIAL ONE (07:54)
[2018-05-02] MEDS ORDERED: PROPOFOL 10 MG/ML 20 ML VIAL IV ONE (07:54)
[2018-05-02] MEDS ORDERED: CALCIUM CHLORIDE 100 MG/ML 10 ML SYRINGE ONE (07:54)
[2018-05-02] MEDS ORDERED: PHENYLEPHRINE-0.9% NACL SYG 1 MG/10 ML SYRINGE ONE (07:54)
[2018-05-02] MEDS ORDERED: SODIUM CHLORIDE 0.9% 250 ML BAG ONE (07:54)
[2018-05-02] MEDS ORDERED: LIDOCAINE 2% SYG (PF) 100 MG/5 ML ONE (07:54)
[2018-05-02] MEDS ORDERED: TRANEXAMIC ACID 1,000 MG/10 ML VIAL ONE (07:54)
[2018-05-02] MEDS ORDERED: MIDAZOLAM 2 MG/2 ML VIAL ONE (07:54)
[2018-05-02] MEDS ORDERED: fentaNYL (PF) 50 MCG/ML 2 ML AMP ONE (07:54)
[2018-05-02] MEDS ORDERED: SUCCINYLCHOLINE CHLORIDE 100 MG/5 ML SYR IV ONE (07:54)
[2018-05-02] MEDS ORDERED: fentaNYL (PF) 50 MCG/ML 50 ML VIAL ONE (07:54)
[2018-05-02] MEDS ORDERED: PROTAMINE SULFATE 10 MG/ML 25 ML VIAL IV ONE (07:54)
[2018-05-02] MEDS ORDERED: HEPARIN SODIUM,PORCINE 10,000 UNIT/ML 1 ML VIAL ONE (07:54)
[2018-05-02] MEDS ORDERED: SODIUM CHLORIDE 0.9% IRRIG 1,000 ML BTL IRRIGATION ONE (07:54)
[2018-05-02 08:22] LABS: ABG Base Excess 3.4 mmol/L; ABG HCO3 27 mmol/L (21-25); ABG PCO2 38 mmHg (35-45); ABG PH 7.46 (7.35-7.45); ABG PO2 304 mmHg (83-108); ABG Potassium Whole Blood 3.7 mmol/L (3.4-4.5); ABG Sodium Whole Blood 141 mmol/L (135-146); ABG TCO2 29 mmol/L (19-24)
[2018-05-02 09:18] LABS: ABG Base Excess 2.9 mmol/L; ABG HCO3 26 mmol/L (21-25); ABG PCO2 35 mmHg (35-45); ABG PH 7.49 (7.35-7.45); ABG PO2 211 mmHg (83-108); ABG Potassium Whole Blood 3.4 mmol/L (3.4-4.5); ABG Sodium Whole Blood 139 mmol/L (135-146); ABG TCO2 27 mmol/L (19-24)
[2018-05-02 09:39] LABS: ABG Base Excess 1.4 mmol/L; ABG HCO3 25 mmol/L (21-25); ABG PCO2 33 mmHg (35-45); ABG PH 7.49 (7.35-7.45); ABG PO2 318 mmHg (83-108); ABG Potassium Whole Blood 3.3 mmol/L (3.4-4.5); ABG Sodium Whole Blood 137 mmol/L (135-146); ABG TCO2 26 mmol/L (19-24)
[2018-05-02 10:17] LABS: ABG Base Excess 0.1 mmol/L; ABG HCO3 26 mmol/L (21-25); ABG PCO2 46 mmHg (35-45); ABG PH 7.36 (7.35-7.45); ABG PO2 331 mmHg (83-108); ABG Potassium Whole Blood 3.8 mmol/L (3.4-4.5); ABG Sodium Whole Blood 138 mmol/L (135-146); ABG TCO2 27 mmol/L (19-24)
[2018-05-02 10:51] LABS: ABG Base Excess 0.9 mmol/L; ABG HCO3 26 mmol/L (21-25); ABG PCO2 42 mmHg (35-45); ABG PO2 364 mmHg (83-108); ABG Potassium Whole Blood 4.1 mmol/L (3.4-4.5); ABG Sodium Whole Blood 139 mmol/L (135-146); ABG TCO2 27 mmol/L (19-24)
[2018-05-02 11:28] LABS: ABG Base Excess -1.4 mmol/L; ABG HCO3 24 mmol/L (21-25); ABG PCO2 41 mmHg (35-45); ABG PH 7.37 (7.35-7.45); ABG PO2 379 mmHg (83-108); ABG Potassium Whole Blood 3.8 mmol/L (3.4-4.5); ABG Sodium Whole Blood 139 mmol/L (135-146); ABG TCO2 25 mmol/L (19-24)
[2018-05-02 11:43] LABS: ABG Base Excess -2.2 mmol/L; ABG HCO3 23 mmol/L (21-25); ABG PCO2 41 mmHg (35-45); ABG PH 7.36 (7.35-7.45); ABG PO2 256 mmHg (83-108); ABG Potassium Whole Blood 3.9 mmol/L (3.4-4.5); ABG Sodium Whole Blood 140 mmol/L (135-146); ABG TCO2 24 mmol/L (19-24)
[2018-05-02] MEDS ORDERED: BENZOCAINE/MENTHOL LOZENG 1 EACH LOZENGE MUCOUS MEM PRN (12:03)
[2018-05-02] MEDS ORDERED: Phosphorus Replacement Protoco 1 EACH MISC MISCELLANE PRN (12:03)
[2018-05-02] MEDS ORDERED: CALCIUM CHLORIDE 1,000 MG in SODIUM CHLORIDE 0.9% 100 ML IV PRN (12:03)
[2018-05-02] MEDS ORDERED: AMIODARONE 450 MG in DEXTROSE 5% IN WATER 250 ML IV PRN ×2 (12:03)
[2018-05-02] MEDS ORDERED: METOCLOPRAMIDE 5 MG/ML 2 ML VIAL IVP PRN (12:03)
[2018-05-02] MEDS ORDERED: Magnesium Replacement Protocol 1 EACH MISC MISCELLANE PRN (12:03)
[2018-05-02] MEDS ORDERED: Potassium Replacement Protocol 1 EACH MISC MISCELLANE PRN (12:03)
[2018-05-02] MEDS ORDERED: ALBUMIN HUMAN 5% 250 ML in EMPTY BAG 1 BAG IVPB PRN (12:03)
[2018-05-02] MEDS ORDERED: DEXTROSE 5% IN WATER 100 ML with AMIODARONE 150 MG IV PRN (12:03)
[2018-05-02] MEDS ORDERED: IPRATROPIUM-ALBUTEROL 3 ML NEB INHALATION PRN (12:03)
[2018-05-02] MEDS ORDERED: INSULIN REGULAR 100 UNIT in SODIUM CHLORIDE 0.9% 100 ML IV SCH (12:15)
--- NOTE | 2018-05-02 12:21 | P.OP ---
Date of Procedure: 05/02/18 Preoperative Diagnosis: Mitral regurgitation, paroxysmal atrial fibrillation Postoperative Diagnosis: Same Procedure(s) Performed: Mitral valve annuloplasty with 26 mm physio-2 ring, modified Mauricio maze procedure with full left-sided lesion set including coronary sinus lesion and mitral annular attachment with cryo-as well as high lateral pulmonary vein ablation and box lesion with RF. Implants: 26 mm physio-2 ring Anesthesia: GETA Surgeon: Torrey Horowitz Hotel Associate #1: [employer] Hotel Associate #2: Germain Wright Estimated Blood Loss (ml): 100 IV fluids (ml): 2,000 Urine output (ml): 1,000 Pathology: none sent Condition: stable Disposition: ICU Indications for Procedure: 63-year-old female with progressive dyspnea on exertion and severe mitral regurgitation by CORINNE. She has a history of paroxysmal atrial fibrillation with multiple cardioversions and a percutaneous ablation procedure. Operative Findings: Mitral regurgitation was central with no evidence of prolapse or flail. The left atrium was mildly dilated. Aorta was palpably normal. Left ventricular function was good by CORINNE. Initial CORINNE demonstrated 3+ mitral regurgitation. Final CORINNE demonstrated 0 mitral regurgitation and no MS. Description of Procedure: Patient was brought to the operating room, placed supine on the operating table , anesthetized and intubated. [place]-Kody catheter and arterial line of been placed in the preop holding area. General anesthesia was induced and the patient was intubated. She was appropriately positioned and prepped and draped. CORINNE probe was placed. After timeout midline sternotomy was performed. The left pleural space was opened widely of the right pleural space was opened somewhat. [place] sternal retractor was placed and the pericardium was opened in the midline. The heart was exposed with pericardial sutures. A she was heparinized and cannulated for cardiopulmonary bypass with a 7 mm soft flow cannula in the distal ascending aorta. A 36 straight venous cannula was placed through the right atrial appendage into the inferior vena cava. At 30 right angle venous cannula was placed in the superior vena cava. Antegrade and retrograde cardioplegia lines were placed in standard fashion. Patient was placed on cardiopulmonary bypass and stabilized. Dissection was carried out first around the right pulmonary veins. Caval tapes were passed. The AtriCure clamp was used to perform 2 parallel ablation lines across the left atrium at the entrance of the right pulmonary veins. We then exposed the left pulmonary veins. The ligament of Ole was taken down with electrocautery. The pulmonary veins were encircled and 2 parallel lines were placed across the left atrium at the insertion of the left pulmonary veins. Again the AtriCure clamp was used for the ablation. Aorta was crossclamped and the heart arrested with cold crystalloid antegrade cardioplegia followed by retrograde cardioplegia. Excellent arrest was obtained. The interatrial groove was dissected out and the left atrium entered through the inner atrial groove. The mitral valve was exposed with the [place] retractor. The AtriCure clamp was used to perform floor and roof lesions. Following this the AtriCure cryoprobe was used to perform a mitral annular lesion and then a coronary sinus lesion. The left atrial appendage was oversewn with a 2 layer running closure of 3-0 Prolene. Mitral valve was now examined. There was no prolapse and no flail. There was central regurgitation due to posterior annular dilatation. Annuloplasty sutures were placed circumferentially around the valve annulus. The anterior leaflet was sized and a 26 mm physioII ring was chosen. Annuloplasty sutures were placed through the ring and the ring was seated. Sutures were secured with corknots. The valve was tested and noted to be competent. Patient was rewarmed to systemic temperature while we closed the left atrium with a single layer running closure of 3-0 Prolene. The patient was placed in Trendelenburg and the cross-clamp removed. Retrograde cardioplegia line was removed and atrial and ventricular pacing wires were placed and the patient was paced. Patient was fully rewarmed and then weaned from cardiopulmonary bypass without the use of inotropic support. CORINNE demonstrated no evidence of mitral regurgitation and no evidence of mitral stenosis. Patient was decannulated in standard fashion and heparin was reversed with protamine. Good hemostasis was obtained throughout. The left pleural space was drained with 32-Ku[place]i chest tube in the mediastinum with a 36-[place] chest tube. The sternum was closed with 8 sternal wires. The mediastinum was irrigated with antibiotic solution prior to closure. Fascia was closed with 0 Ethibond. Subcutaneous and subcuticular layers with layers of Vicryl suture. Dry sterile dressings were applied and the patient was transferred to the ICU in stable condition on no inotropic support. No blood transfusions were required.
[2018-05-02 13:01] LABS: Glucose,Whole Blood 154 mg/dL (75-99)
[2018-05-02 13:17] LABS: ABG Base Excess -0.8 mmol/L; ABG HCO3 25 mmol/L (21-25); ABG PCO2 44 mmHg (35-45); ABG PH 7.36 (7.35-7.45); ABG PO2 >400 mmHg (83-108); ABG TCO2 26 mmol/L (19-24)
[2018-05-02 13:18] LABS: Basophils % (A) 0 %; Eosinophils # (A) 0.1 k/uL (0-0.7); Eosinophils % (A) 1 %; HCT 24.5 % (34.0-46.0); Lymphocytes % (A) 13 %; MCH 29.8 pg (25.0-35.0); MCHC 33.7 g/dL (31.0-37.0); MCV 88.4 fL (80.0-100.0); Mean Platelet Volume 8.3; Monocytes # (A) 0.6 k/uL (0-1.0); Monocytes % (A) 4 %; Neutrophils # (A) 11.9 k/uL (1.3-7.7); Neutrophils % (A) 81 %; Platelet Count 177 k/uL (150-450); RBC 2.78 m/uL (3.80-5.40); RDW 14.4 % (11.5-15.5); WBC 14.7 k/uL (3.8-10.6)
[2018-05-02 13:24] LABS: HGB 8.3 gm/dL (11.4-16.0)
[2018-05-02] MEDS: PROPOFOL 1,000 MG in EMPTY BAG 1 BAG IV SCH ×2 (13:32→15:06)
[2018-05-02] MEDS: LACTATED RINGERS 1,000 ML IV SCH (13:33)
--- NOTE | 2018-05-02 13:34 | XR ---
EXAMINATION TYPE: XR chest 1V portable DATE OF EXAM: 05/02/2018 COMPARISON: 04/26/2018 HISTORY: Post cardiac surgery TECHNIQUE: Single frontal view of the chest is obtained. FINDINGS: Bilateral consolidation and pleural effusion. Diffuse interstitial pattern and cardiomegal y. Postsurgical changes. [place]-Kody catheter seen with the tip near the proximal pulmonary outflow tra ct. ET tube approximately 3.5 cm above the lucas and NG tube and chest tube also noted. No sizable p neumothorax. IMPRESSION: 1. Postsurgical changes with bilateral consolidation and pleural effusion greater on the left. Correl ate for underlying venous congestion.
[2018-05-02] MEDS: CLEVIDIPINE BUTYRATE 25 MG in EMPTY BAG 1 BAG IV SCH ×2 (13:35→22:15)
[2018-05-02 13:36] LABS: ALT 26 U/L (9-52); AST 60 U/L (14-36); Alkaline Phosphatase 58 U/L (38-126); Anion Gap 8 mmol/L; Blood Urea Nitrogen 10 mg/dL (7-17); Calcium 7.9 mg/dL (8.4-10.2); Carbon Dioxide 23 mmol/L (22-30); Chloride 110 mmol/L (98-107); Glucose 136 mg/dL (74-99); Magnesium 3.3 mg/dL (1.6-2.3); Potassium 4.3 mmol/L (3.5-5.1); Sodium 141 mmol/L (137-145); Total Bilirubin 0.5 mg/dL (0.2-1.3); Total Protein 5.3 g/dL (6.3-8.2)
[2018-05-02 13:41] LABS: INR 1.1 (<1.2); Partial Thromboplastin Time 22.8 sec (22.0-30.0)
[2018-05-02 14:02] LABS: Glucose,Whole Blood 165 mg/dL (75-99)
--- NOTE | 2018-05-02 14:53 | P.CNPUL ---
History of Present Illness Consult date: 05/02/18 Reason for consult: other Chief complaint: Mitral valve regurgitation, status post mitral valve repair History of present illness: This is 63-year-old white female patient who presented initially to the hospital on 04/24/2018 with acute shortness of breath and chest pain, patient rushed to the hospital per EMS, she was in acute distress, and had to be placed on BiPAP support. Patient was found to have new onset left bundle branch block , and chest x-ray showed pulmonary edema. Patient underwent heart catheterization which showed normal coronary arteries, patient was found to have 4+ mitral valve regurgitation reserved left ventricular systolic function with EF of 55-60%. Patient was advised surgical intervention for repair of the mitral valve, and she underwent atrial valve repair, modified Mauricio-Maze procedure today on 05/02/2018. Patient seen in the postop period in the intensive care unit, she is sedated, intubated on mechanical ventilator, current vent settings are assist-control mode with a rate of 12, tidal volume 450, FiO2 100%, and PEEP of 5. Maintenance IV drips include lactated Ringer's at a rate of 50 ML per hour, nitroglycerin drip at 5 mics per minute, Diprivan and is at 50 mics per kilo per minute, and insulin drip is at 2 units per hour. Patient received some on longus blood transfusion and Cell Saver Intra-Op. Received some albumin. Currently is hemodynamically stable, cardiac output and index is 5.3 and 2.5 respectively. Incision is covered with surgical dressing, clean dry and intact, mediastinal and left pleural chest tubes with sanguinous output, and there is 140 embolus including but in the Pleur-evac. Patient is being externally paced, using the epicardial wires, currently at AAI mode at a rate of 80 BPM. Galeas catheter is in place, and patient is producing adequate amount of dilute yellow urine. Chest x-ray was completed, and showed ET tube, Bellflower-Kody catheter, and NG tube in appropriate positions, postsurgical changes with bilateral consolidation and pleural effusion greater on the left. Blood gases were reviewed and show pO2 of greater than 400, pCO2 44, ph of 7.36, was done on FiO2 of 100%. FiO2 has been turned down to 40%. Review of Systems All systems: negative Constitutional: Denies chills, Denies fever Eyes: denies blurred vision, denies pain Ears, nose, mouth and throat: Denies headache, Denies sore throat Cardiovascular: Denies chest pain, Denies shortness of breath Respiratory: Denies cough Gastrointestinal: Denies abdominal pain, Denies diarrhea, Denies nausea, Denies vomiting Genitourinary: Denies dysuria, Denies hematuria Musculoskeletal: Denies myalgias Integumentary: Denies pruritus, Denies rash Neurological: Denies numbness, Denies weakness Psychiatric: Denies anxiety, Denies depression Endocrine: Denies fatigue, Denies weight change Past Medical History Past Medical History: Atrial Fibrillation, Chest Pain / Angina, Heart Failure, GI Bleed, Hypertension, Rheumatoid Arthritis (RA), Sleep Apnea/CPAP/BIPAP Additional Past Medical History / Comment(s): History of atrial fibrillation post-ablation and cardioversions, recent hospitalization for GI bleeds related to a antral ulcer, anemia secondary to GI bleed, vertigo, liver lesion probably a meningioma and the patient will be having an outpatient MRI at a later stage, not currently using CPAP History of Any Multi-Drug Resistant Organisms: MRSA Date of last positivie culture/infection: 2002 MDRO Source:: lt arm Past Surgical History: Appendectomy, Section, Heart Catheterization, Hysterectomy, Joint Replacement, Orthopedic Surgery, Tubal Ligation Additional Past Surgical History / Comment(s): 7 KNEE SURGERIES= 0NE LEFT KNEE ARTHROSCOPY, and 5 RT KNEE ARTHROSCOPIES THEN TOTAL RT KNEE DONE & THEN TOTAL REVISION TO RT KNEE , PLACIDO. ACHILLES TENDON SURGERY- HAS SCREWS IN PLACIDO. HEELS, EYE SURGERY A CHILD(STRABISMUS), DENTAL IMPLANT BOTTOM LT., COLONOSCOPY, right shoulder sx x2 Past Anesthesia/Blood Transfusion Reactions: Previous Problems w/ Anesthesia, Family History of Problems w/ Anesthesia, Postoperative Nausea & Vomiting (PONV) Additional Past Anesthesia/Blood Transfusion Reaction / Comment(s): PT & HER MOTHER HAVE HX PONV Smoking Status: Never smoker - Past Family History Mother Family Medical History: Congestive Heart Failure (CHF), Diabetes Mellitus Additional Family Medical History / Comment(s): History of spinal stenosis, heavy smoker and IDDM. Mother at age 73yrs. Father Family Medical History: Diabetes Mellitus, Hypertension Additional Family Medical History / Comment(s): Heavy smoker, Father in his late 60's or early 70's. Medications and Allergies Home Medications Medication Instructions Recorded Confirmed Type Rivaroxaban [Xarelto] 20 mg PO HS 02/16/15 05/02/18 History Lisinopril [Zestril] 5 mg PO DAILY #30 tab 02/21/15 05/02/18 Rx Metoprolol Tartrate 25 mg PO BID #30 tab 08/21/17 05/02/18 Rx Flecainide Acetate [Tambocor] 100 mg PO Q12HR 11/20/17 05/02/18 History Ferrous Sulfate [Iron] 325 mg PO BID 04/24/18 05/02/18 History Furosemide [Lasix] 40 mg PO BID #0 04/26/18 05/02/18 Rx Potassium Chloride [Klor-Con 20] 20 meq PO BID #0 04/26/18 05/02/18 Rx Desenex 2% Cream 1 applic TOPICAL BID 04/27/18 05/02/18 History Omeprazole Magnesium [PriLOSEC OTC] 20 mg PO BID 04/27/18 05/02/18 History Mupirocin 2% Oint [Bactroban 2% 1 applic TOPICAL DIRECTED 05/01/18 05/02/18 History Oint] Allergies Allergy/AdvReac Type Severity Reaction Status Date / Time No Known Allergies Allergy Verified 05/02/18 06:09 Physical Exam Vitals: Vital Signs Temp Pulse Pulse Resp BP BP Pulse Ox 05/02/18 06:15 97.9 F 62 61 18 135/65 130/60 98 Intake and Output 05/01/18 05/02/18 05/02/18 22:59 06:59 14:59 Intake Total 34.054 Output Total 1500 Balance -1465.946 Intake: IV 32 Intake, IV Titration 2.054 Amount Insulin Regular 100 unit 2.054 In Sodium Chloride 0.9% 100 ml @ Per Protocol IV .Q0M [facility] Rx#:[id number] Output: Urine 500 Estimated Blood Loss 1000 Other: Weight 106.7 kg GENERAL EXAM: 63-year-old obese white female, sedated, intubated on mechanical ventilator HEAD: Normocephalic/atraumatic. EYES: Normal reaction of pupils, equal size. Conjunctiva pink, sclera white. NOSE: Clear with pink turbinates. THROAT: No erythema or exudates. NECK: No masses, no JVD, no thyroid enlargement, no adenopathy. CHEST: No chest wall deformity. Symmetrical expansion. Midsternal incision, clean dry and intact, covered with surgical dressing, mediastinal and left pleural chest tube are in place, Y connected, with sanguinous output in the Pleur-evac, no air leak noted. Patient has epicardial wires in place, connected to an external pacemaker, is currently being paced at AAI mode at a rate of 80 BPM LUNGS: Equal air entry with no crackles, wheeze, rhonchi or dullness. CVS: Regular rate and rhythm, normal S1 and S2, no gallops, no murmurs, no rubs ABDOMEN: Soft, nontender. No hepatosplenomegaly, normal bowel sounds, no guarding or rigidity. EXTREMITIES: No clubbing, no edema, no cyanosis, 2+ pulses and upper and lower extremities. MUSCULOSKELETAL: Muscle strength and tone normal. SPINE: No scoliosis or deformity SKIN: No rashes CENTRAL NERVOUS SYSTEM: sedated, intubated on mechanical ventilator No focal deficits, tone is normal in all 4 extremities. Results - Laboratory Findings CBC and BMP: 05/02/18 13:00 05/02/18 13:00 ABG ABG pH 7.36 (7.35-7.45) 05/02/18 13:11 ABG pCO2 44 mmHg (35-45) 05/02/18 13:11 ABG pO2 >400 mmHg (83-108) H 05/02/18 13:11 ABG O2 Saturation 100.0 % (94-97) H 05/02/18 13:11 PT/INR, D-dimer PT 11.0 sec (9.0-12.0) 05/02/18 13:00 INR 1.1 (<1.2) 05/02/18 13:00 Abnormal lab findings: Abnormal Labs 04/26/18 05/01/18 05/02/18:18 09:58 08:26 WBC RBC Hgb Hct Neutrophils # ABG pH 7.46 H ABG pCO2 ABG pO2 304 H ABG HCO3 27 H ABG Total CO2 29 H ABG O2 Saturation 100.0 H ABG Hematocrit 31 L ABG Potassium ABG Ionized Calcium ABG Glucose 109 H ABG Lactic Acid Hemoglobin 10.0 L Chloride Glucose POC Glucose (mg/dL) Calcium Magnesium AST Total Protein Albumin Arterial Blood Potassium Arterial Blood Glucose 109 H Crossmatch See Detail See Detail 05/02/18 05/02/18 05/02/18 09:21 09:42 10:20 WBC RBC Hgb Hct Neutrophils # ABG pH 7.49 H 7.49 H ABG pCO2 33 L 46 H ABG pO2 211 H 318 H 331 H ABG HCO3 26 H 26 H ABG Total CO2 27 H 26 H 27 H ABG O2 Saturation 100.0 H 100.0 H 100.0 H ABG Hematocrit 28 L 22 L 22 L ABG Potassium 3.3 L ABG Ionized Calcium 4.4 L 4.0 L 4.4 L ABG Glucose 117 H 118 H 120 H ABG Lactic Acid 2.1 H 1.7 H Hemoglobin 9.2 L 7.1 L 7.0 L* Chloride Glucose POC Glucose (mg/dL) Calcium Magnesium AST Total Protein Albumin Arterial Blood Potassium 3.3 L Arterial Blood Glucose 117 H 118 H 120 H Crossmatch 05/02/18 05/02/18 05/02/18 10:54 11:31 11:46 WBC RBC Hgb Hct Neutrophils # ABG pH ABG pCO2 ABG pO2 364 H 379 H 256 H ABG HCO3 26 H ABG Total CO2 27 H 25 H ABG O2 Saturation 100.0 H 100.0 H 100.0 H ABG Hematocrit 22 L 23 L 23 L ABG Potassium ABG Ionized Calcium 4.3 L ABG Glucose 134 H 139 H 126 H ABG Lactic Acid 2.7 H* 2.6 H* Hemoglobin 7.0 L* 7.5 L 7.5 L Chloride Glucose POC Glucose (mg/dL) Calcium Magnesium AST Total Protein Albumin Arterial Blood Potassium Arterial Blood Glucose 134 H 139 H 126 H Crossmatch 05/02/18 05/02/18 05/02/18 12:59 13:00 13:00 WBC 14.7 H RBC 2.78 L Hgb 8.3 L D Hct 24.5 L Neutrophils # 11.9 H ABG pH ABG pCO2 ABG pO2 ABG HCO3 ABG Total CO2 ABG O2 Saturation ABG Hematocrit ABG Potassium ABG Ionized Calcium ABG Glucose ABG Lactic Acid Hemoglobin Chloride 110 H Glucose 136 H POC Glucose (mg/dL) 154 H Calcium 7.9 L Magnesium 3.3 H AST 60 H Total Protein 5.3 L Albumin 3.0 L Arterial Blood Potassium Arterial Blood Glucose Crossmatch 05/02/18 05/02/18 13:11 14:00 WBC RBC Hgb Hct Neutrophils # ABG pH ABG pCO2 ABG pO2 >400 H ABG HCO3 ABG Total CO2 26 H ABG O2 Saturation 100.0 H ABG Hematocrit ABG Potassium ABG Ionized Calcium ABG Glucose ABG Lactic Acid Hemoglobin Chloride Glucose POC Glucose (mg/dL) 165 H Calcium Magnesium AST Total Protein Albumin Arterial Blood Potassium Arterial Blood Glucose Crossmatch - Diagnostic Findings Chest x-ray: report reviewed Assessment and Plan Plan: Assessment: #1. Severe mitral regurgitation, status post mitral valve repair modified Maze , postop day 0 from #2. Routine postoperative ventilator management #3. Postop blood loss anemia, and expected outcomes of surgery #4. History of atrial fibrillation, post-ablation #5. Rheumatoid arthritis #6. Hypertension #7. Recent hospitalization for pulmonary edema #8. Obstructive sleep apnea, on CPAP therapy #9. Liver lesion possibly hemangioma #10. History of GI bleeding, history of antral ulcer Plan: Postop blood gases and chest x-ray was reviewed by Dr. Elkins, with weaning and extubation as soon as the patient starts waking up. Continue close hemodynamic monitoring, incentive spirometry to the bedside after extubation. Patient is hemodynamically stable, no significant bleeding. Nebulized bronchodilators. Daily chest x-rays and labs. I performed a history & physical examination of the patient and discussed their management with my nurse practitioner, Melly Murrell. I reviewed the nurse practitioner's note and agree with the documented findings and plan of care. Lung sounds are clear. The findings and the impression was discussed with the patient. I attest to the documentation by the nurse practitioner. Time with Patient: Greater than 30
[2018-05-02 15:03] LABS: Glucose,Whole Blood 158 mg/dL (75-99)
[2018-05-02] MEDS: IPRATROPIUM-ALBUTEROL 3 ML NEB INHALATION SCH (15:23)
[2018-05-02] MEDS ORDERED: IPRATROPIUM-ALBUTEROL 3 ML NEB INHALATION SCH (16:00)
[2018-05-02 16:03] LABS: Glucose,Whole Blood 159 mg/dL (75-99)
[2018-05-02] MEDS: ceFAZolin IN SWFI 2 GM/20 ML SYRINGE IVP SCH ×2 (16:10→23:59)
[2018-05-02 16:30] LABS: Basophils % (A) 0 %; Eosinophils % (A) 0 %; HCT 24.3 % (34.0-46.0); HGB 8.1 gm/dL (11.4-16.0); Lymphocytes # (A) 0.8 k/uL (1.0-4.8); Lymphocytes % (A) 9 %; MCH 29.6 pg (25.0-35.0); MCHC 33.5 g/dL (31.0-37.0); MCV 88.3 fL (80.0-100.0); Mean Platelet Volume 8.2; Monocytes # (A) 0.4 k/uL (0-1.0); Monocytes % (A) 5 %; Neutrophils # (A) 7.9 k/uL (1.3-7.7); Neutrophils % (A) 86 %; Platelet Count 158 k/uL (150-450); RBC 2.75 m/uL (3.80-5.40); RDW 14.4 % (11.5-15.5); WBC 9.2 k/uL (3.8-10.6)
[2018-05-02 17:06] LABS: Glucose,Whole Blood 160 mg/dL (75-99)
[2018-05-02 18:02] LABS: Glucose,Whole Blood 149 mg/dL (75-99)
[2018-05-02] MEDS: ACETAMINOPHEN IV (For NPO) 1,000 MG in EMPTY BAG 1 BAG IVPB SCH ×2 (18:04→23:59)
[2018-05-02 19:05] LABS: Glucose,Whole Blood 143 mg/dL (75-99)
[2018-05-02 20:05] LABS: Glucose,Whole Blood 133 mg/dL (75-99)
[2018-05-02 21:09] LABS: Glucose,Whole Blood 154 mg/dL (75-99)
[2018-05-02 21:16] LABS: Basophils % (A) 0 %; Eosinophils % (A) 0 %; HCT 24.9 % (34.0-46.0); HGB 8.1 gm/dL (11.4-16.0); Lymphocytes # (A) 0.3 k/uL (1.0-4.8); Lymphocytes % (A) 4 %; MCHC 32.5 g/dL (31.0-37.0); MCV 89.3 fL (80.0-100.0); Mean Platelet Volume 9.6; Monocytes # (A) 0.5 k/uL (0-1.0); Monocytes % (A) 5 %; Neutrophils # (A) 8.2 k/uL (1.3-7.7); Neutrophils % (A) 91 %; Platelet Count 180 k/uL (150-450); RBC 2.79 m/uL (3.80-5.40); RDW 14.5 % (11.5-15.5)
[2018-05-02] MEDS: ONDANSETRON 4 MG/2 ML VIAL IVP PRN (21:17)
[2018-05-02] MEDS: MUPIROCIN 2% OINT 22 GM TUBE NASAL SCH (21:17)
[2018-05-02] MEDS: HEPARIN SODIUM,PORCINE 5,000 UNIT/ML 1 ML VIAL SQ SCH (21:17)
[2018-05-02 21:24] LABS: ABG Base Excess -0.9 mmol/L; ABG HCO3 24 mmol/L (21-25); ABG Oxygen Saturation 98.8 % (94-97); ABG PCO2 38 mmHg (35-45); ABG PH 7.41 (7.35-7.45); ABG PO2 102 mmHg (83-108); ABG TCO2 25 mmol/L (19-24)
[2018-05-02 22:04] LABS: Glucose,Whole Blood 131 mg/dL (75-99)
[2018-05-02 23:02] LABS: Glucose,Whole Blood 118 mg/dL (75-99)
[2018-05-03 00:02] LABS: Glucose,Whole Blood 131 mg/dL (75-99)
[2018-05-03 01:11] LABS: Glucose,Whole Blood 149 mg/dL (75-99)
[2018-05-03] MEDS: CLEVIDIPINE BUTYRATE 25 MG in EMPTY BAG 1 BAG IV SCH (02:20)
[2018-05-03 02:34] LABS: Glucose,Whole Blood 136 mg/dL (75-99)
[2018-05-03 03:12] LABS: Glucose,Whole Blood 132 mg/dL (75-99)
[2018-05-03 04:26] LABS: Basophils % (A) 0 %; Eosinophils % (A) 0 %; HCT 23.7 % (34.0-46.0); HGB 8.2 gm/dL (11.4-16.0); Lymphocytes # (A) 0.6 k/uL (1.0-4.8); Lymphocytes % (A) 7 %; MCH 29.9 pg (25.0-35.0); MCHC 34.4 g/dL (31.0-37.0); Mean Platelet Volume 7.8; Monocytes # (A) 0.6 k/uL (0-1.0); Monocytes % (A) 7 %; Neutrophils # (A) 7.9 k/uL (1.3-7.7); Neutrophils % (A) 85 %; Platelet Count 173 k/uL (150-450); RBC 2.73 m/uL (3.80-5.40); RDW 14.3 % (11.5-15.5); WBC 9.3 k/uL (3.8-10.6)
[2018-05-03 04:27] LABS: Ionized Calcium 4.9 mg/dL (4.5-5.3)
[2018-05-03 04:36] LABS: ALT 28 U/L (9-52); AST 66 U/L (14-36); Albumin 3.1 g/dL (3.5-5.0); Alkaline Phosphatase 49 U/L (38-126); Anion Gap 9 mmol/L; Blood Urea Nitrogen 11 mg/dL (7-17); Calcium 8.3 mg/dL (8.4-10.2); Carbon Dioxide 23 mmol/L (22-30); Chloride 108 mmol/L (98-107); Glucose 117 mg/dL (74-99); Glucose,Whole Blood 133 mg/dL (75-99); Magnesium 2.3 mg/dL (1.6-2.3); Sodium 140 mmol/L (137-145); Total Bilirubin 0.3 mg/dL (0.2-1.3); Total Protein 5.4 g/dL (6.3-8.2)
[2018-05-03 04:38] LABS: INR 1.1 (<1.2); Partial Thromboplastin Time 24.1 sec (22.0-30.0); Prothrombin Time 10.6 sec (9.0-12.0)
[2018-05-03] MEDS: ACETAMINOPHEN IV (For NPO) 1,000 MG in EMPTY BAG 1 BAG IVPB SCH ×2 (06:09→11:16)
[2018-05-03] MEDS: HEPARIN SODIUM,PORCINE 5,000 UNIT/ML 1 ML VIAL SQ SCH ×3 (06:10→23:30)
[2018-05-03 06:17] LABS: Glucose,Whole Blood 127 mg/dL (75-99)
[2018-05-03 07:21] LABS: Glucose,Whole Blood 131 mg/dL (75-99)
[2018-05-03] MEDS: IPRATROPIUM-ALBUTEROL 3 ML NEB INHALATION SCH ×4 (07:38→20:05)
[2018-05-03 08:09] LABS: Glucose,Whole Blood 168 mg/dL (75-99)
[2018-05-03] MEDS: KETOROLAC 30 MG/ML 1 ML VIAL IVP SCH ×4 (08:10→23:30)
[2018-05-03] MEDS: FUROSEMIDE 10 MG/ML 2 ML VIAL IV SCH ×3 (08:11→23:30)
[2018-05-03] MEDS: METOPROLOL TARTRATE 12.5 MG TAB PO SCH ×2 (08:11→20:54)
[2018-05-03] MEDS: ASPIRIN 325 MG TAB PO SCH (08:11)
[2018-05-03] MEDS: ATORVASTATIN 40 MG TAB PO SCH (08:11)
[2018-05-03] MEDS: LACTATED RINGERS 1,000 ML IV SCH (08:13)
[2018-05-03] MEDS: MUPIROCIN 2% OINT 22 GM TUBE NASAL SCH ×2 (08:29→20:56)
[2018-05-03] MEDS: ceFAZolin IN SWFI 2 GM/20 ML SYRINGE IVP SCH (08:29)
--- NOTE | 2018-05-03 08:38 | P.PN ---
Subjective Progress Note Date: 05/03/18 Principal diagnosis: Mitral valve regurgitation. Paroxysmal atrial fibrillation on Xarelto for anticoagulation status post ablation and cardioversions. History of hypertension, hyperlipidemia, rheumatoid arthritis, obesity, obstructive sleep apnea with home CPAP use, moderate COPD with preoperative FEV1 52% of predicted , anemia, gastric ulcer, MRSA, and preoperative nasal swab positive for MSSA. POD #1 mitral valve annuloplasty with 26 mm physio-2 ring, modified Mauricio maze procedure with a full left-sided lesion set including coronary sinus lesion and mitral annular attachment with cryo-probe as well as high lateral pulmonary vein ablation and proximal lesion with RF. The patient is currently sitting up in the recliner in the intensive care unit in no acute distress. Was successfully extubated last night at 21:30 PM. Does complain of incisional pain and some mild shortness of breath but otherwise no new complaints. Currently hemodynamically stable on no pressors or inotropes. Epicardial pacemaker still connected but turned off as patient's intrinsic rhythm is normal sinus. Objective - Vital Signs Vital signs: Vital Signs Temp 99.3 F 05/03/18 04:00 Pulse 83 05/03/18 07:52 Resp 20 05/03/18 07:30 BP 103/44 05/02/18 15:40 Pulse Ox 98 05/03/18 07:30 Intake & Output 05/02/18 05/03/18 05/03/18 18:59 06:59 18:59 Intake Total 021.110 9296.179 59 Output Total 2229 790 30 Balance -1259.056 281.179 29 Weight 111.7 kg Intake: IV 77 738 59 CO/CI 80 Lactated Ringers 1,000 ml 550 50 @ 20 mls/hr IV .Q24H [facility] Rx#:[id number] pressure bag 45 108 9 Intake, IV Titration 892.944 333.179 Amount ACETAMINOPHEN IV (For NPO 100 200 ) 1,000 mg In Empty Bag 1 bag @ 400 mls/hr IVPB Q6HR [facility] Rx#:[id number] Albumin Human 5% 250 ml 250 In Empty Bag 1 bag @ 250 mls/hr IVPB Q1HR PRN Rx#: [id number] Clevidipine Butyrate 25 33.133 mg In Empty Bag 1 bag @ 1 MG/HR 2 mls/hr IV .Q24H [facility] Rx#:[id number] Insulin Regular 100 unit 13.164 35.358 In Sodium Chloride 0.9% 100 ml @ Per Protocol IV .Q0M [facility] Rx#:[id number] Lactated Ringers 1,000 ml 400 50 @ 20 mls/hr IV .Q24H [facility] Rx#:[id number] Propofol 1,000 mg In 109.780 14.688 Empty Bag 1 bag @ Titrate IV .Q0M [facility] Rx#: [id number] ceFAZolin 2,000 mg In 20 Sodium Chloride 0.9% 30 ml @ Per Protocol IVPB ONCE ONE Rx#:[id number] Output: Chest Tube Drainage 239 330 10 Chest Tube Left Pleural/ 239 330 10 Mediastinal Urine 990 460 20 Estimated Blood Loss 1000 Other: Voiding Method Indwelling Catheter Indwelling Catheter ABP, PAP, CO, CI - Last Documented Arterial Blood Pressure 148/48 Pulmonary Artery Pressure 32/12 Cardiac Output 6.2 Cardiac Index 2.9 - Constitutional General appearance: Present: cooperative, no acute distress, obese - Respiratory Details: Lung sounds diminished bilaterally with coarse breath sounds in the bases. Respirations even, nonlabored. Currently on 2 L nasal cannula with oxygen saturation 100%. Able to achieve 750 mL on her incentive spirometer. Weak cough. Mediastinal/left pleural chest tube to continuous wall suction, 280 mL thin serosanguineous drainage overnight, 670 mL since surgery, no air leak present. - Cardiovascular Details: S1, S2 present. Regular rate and rhythm, sinus rhythm with bundle branch block on telemetry. Sternum stable. A/V epicardial pacemaker wires present, connected to generator, generator off. Palpable peripheral pulses bilaterally. No edema present. No calf pain or tenderness noted. Right internal jugular Albert Lea/Cordis, left radial arterial line present. Last CO/CI 6.2/2.9 on no inotropes. Heart hugger in place with patient demonstrating appropriate use. Antiembolism stockings, SCDs present. - Gastrointestinal Gastrointestinal Comment(s): Abdomen soft, nontender, nondistended. Hypoactive bowel sounds present 4 quadrants. Tolerating full liquid diet. Negative flatus at this time. - Genitourinary Genitourinary Comment(s): Galeas present draining clear, yellow urine. Output 35-45 mL/h overnight, 290 in the last 8 hours. - Integumentary Integumentary Comment(s): Skin is warm and dry with evidence of good perfusion. Anterior chest incision well approximated and covered with dry intact dressing. - Neurologic Neurologic: Present: CNII-XII intact - Musculoskeletal Musculoskeletal: Present: strength equal bilaterally - Psychiatric Psychiatric: Present: A&O x's 3, appropriate affect, intact judgment & insight - Allied health notes Allied health notes reviewed: nursing - Labs CBC & Chem 7: 05/03/18 04:15 05/03/18 04:15 Labs: Abnormal Lab Results - Last 24 Hours (Table) 05/01/18 05/02/18 05/02/18 Range/Units 09:58 08:26 09:21 WBC (3.8-10.6) k/uL RBC (3.80-5.40) m/uL Hgb (11.4-16.0) gm/dL Hct (34.0-46.0) % Neutrophils # (1.3-7.7) k/uL Lymphocytes # (1.0-4.8) k/uL ABG pH 7.46 H 7.49 H (7.35-7.45) ABG pCO2 (35-45) mmHg ABG pO2 304 H 211 H (83-108) mmHg ABG HCO3 27 H 26 H (21-25) mmol/L ABG Total CO2 29 H 27 H (19-24) mmol/L ABG O2 Saturation 100.0 H 100.0 H (94-97) % ABG Hematocrit 31 L 28 L (34.0-46.0) % ABG Potassium (3.4-4.5) mmol/L ABG Ionized Calcium 4.4 L (4.5-5.3) mg/dL ABG Glucose 109 H 117 H (75-99) mg/dL ABG Lactic Acid 2.1 H (0.5-1.6) mmol/L Hemoglobin 10.0 L 9.2 L (11.4-16.0) gm/dL Chloride (98-107) mmol/L Glucose (74-99) mg/dL POC Glucose (mg/dL) (75-99) mg/dL Calcium (8.4-10.2) mg/dL Magnesium (1.6-2.3) mg/dL AST (14-36) U/L Total Protein (6.3-8.2) g/dL Albumin (3.5-5.0) g/dL Arterial Blood Potassium (3.4-4.5) mmol/L Arterial Blood Glucose 109 H 117 H (75-99) mg/dL Crossmatch See Detail 05/02/18 05/02/18 05/02/18 Range/Units 09:42 10:20 10:54 WBC (3.8-10.6) k/uL RBC (3.80-5.40) m/uL Hgb (11.4-16.0) gm/dL Hct (34.0-46.0) % Neutrophils # (1.3-7.7) k/uL Lymphocytes # (1.0-4.8) k/uL ABG pH 7.49 H (7.35-7.45) ABG pCO2 33 L 46 H (35-45) mmHg ABG pO2 318 H 331 H 364 H (83-108) mmHg ABG HCO3 26 H 26 H (21-25) mmol/L ABG Total CO2 26 H 27 H 27 H (19-24) mmol/L ABG O2 Saturation 100.0 H 100.0 H 100.0 H (94-97) % ABG Hematocrit 22 L 22 L 22 L (34.0-46.0) % ABG Potassium 3.3 L (3.4-4.5) mmol/L ABG Ionized Calcium 4.0 L 4.4 L 4.3 L (4.5-5.3) mg/dL ABG Glucose 118 H 120 H 134 H (75-99) mg/dL ABG Lactic Acid 1.7 H (0.5-1.6) mmol/L Hemoglobin 7.1 L 7.0 L* 7.0 L* (11.4-16.0) gm/dL Chloride (98-107) mmol/L Glucose (74-99) mg/dL POC Glucose (mg/dL) (75-99) mg/dL Calcium (8.4-10.2) mg/dL Magnesium (1.6-2.3) mg/dL AST (14-36) U/L Total Protein (6.3-8.2) g/dL Albumin (3.5-5.0) g/dL Arterial Blood Potassium 3.3 L (3.4-4.5) mmol/L Arterial Blood Glucose 118 H 120 H 134 H (75-99) mg/dL Crossmatch 05/02/18 05/02/18 05/02/18 Range/Units 11:31 11:46 12:59 WBC (3.8-10.6) k/uL RBC (3.80-5.40) m/uL Hgb (11.4-16.0) gm/dL Hct (34.0-46.0) % Neutrophils # (1.3-7.7) k/uL Lymphocytes # (1.0-4.8) k/uL ABG pH (7.35-7.45) ABG pCO2 (35-45) mmHg ABG pO2 379 H 256 H (83-108) mmHg ABG HCO3 (21-25) mmol/L ABG Total CO2 25 H (19-24) mmol/L ABG O2 Saturation 100.0 H 100.0 H (94-97) % ABG Hematocrit 23 L 23 L (34.0-46.0) % ABG Potassium (3.4-4.5) mmol/L ABG Ionized Calcium (4.5-5.3) mg/dL ABG Glucose 139 H 126 H (75-99) mg/dL ABG Lactic Acid 2.7 H* 2.6 H* (0.5-1.6) mmol/L Hemoglobin 7.5 L 7.5 L (11.4-16.0) gm/dL Chloride (98-107) mmol/L Glucose (74-99) mg/dL POC Glucose (mg/dL) 154 H (75-99) mg/dL Calcium (8.4-10.2) mg/dL Magnesium (1.6-2.3) mg/dL AST (14-36) U/L Total Protein (6.3-8.2) g/dL Albumin (3.5-5.0) g/dL Arterial Blood Potassium (3.4-4.5) mmol/L Arterial Blood Glucose 139 H 126 H (75-99) mg/dL Crossmatch 05/02/18 05/02/18 05/02/18 Range/Units 13:00 13:00 13:11 WBC 14.7 H (3.8-10.6) k/uL RBC 2.78 L (3.80-5.40) m/uL Hgb 8.3 L D (11.4-16.0) gm/dL Hct 24.5 L (34.0-46.0) % Neutrophils # 11.9 H (1.3-7.7) k/uL Lymphocytes # (1.0-4.8) k/uL ABG pH (7.35-7.45) ABG pCO2 (35-45) mmHg ABG pO2 >400 H (83-108) mmHg ABG HCO3 (21-25) mmol/L ABG Total CO2 26 H (19-24) mmol/L ABG O2 Saturation 100.0 H (94-97) % ABG Hematocrit (34.0-46.0) % ABG Potassium (3.4-4.5) mmol/L ABG Ionized Calcium (4.5-5.3) mg/dL ABG Glucose (75-99) mg/dL ABG Lactic Acid (0.5-1.6) mmol/L Hemoglobin (11.4-16.0) gm/dL Chloride 110 H (98-107) mmol/L Glucose 136 H (74-99) mg/dL POC Glucose (mg/dL) (75-99) mg/dL Calcium 7.9 L (8.4-10.2) mg/dL Magnesium 3.3 H (1.6-2.3) mg/dL AST 60 H (14-36) U/L Total Protein 5.3 L (6.3-8.2) g/dL Albumin 3.0 L (3.5-5.0) g/dL Arterial Blood Potassium (3.4-4.5) mmol/L Arterial Blood Glucose (75-99) mg/dL Crossmatch 05/02/18 05/02/18 05/02/18 Range/Units 14:00 15:01 16:00 WBC (3.8-10.6) k/uL RBC 2.75 L (3.80-5.40) m/uL Hgb 8.1 L (11.4-16.0) gm/dL Hct 24.3 L (34.0-46.0) % Neutrophils # 7.9 H (1.3-7.7) k/uL Lymphocytes # 0.8 L (1.0-4.8) k/uL ABG pH (7.35-7.45) ABG pCO2 (35-45) mmHg ABG pO2 (83-108) mmHg ABG HCO3 (21-25) mmol/L ABG Total CO2 (19-24) mmol/L ABG O2 Saturation (94-97) % ABG Hematocrit (34.0-46.0) % ABG Potassium (3.4-4.5) mmol/L ABG Ionized Calcium (4.5-5.3) mg/dL ABG Glucose (75-99) mg/dL ABG Lactic Acid (0.5-1.6) mmol/L Hemoglobin (11.4-16.0) gm/dL Chloride (98-107) mmol/L Glucose (74-99) mg/dL POC Glucose (mg/dL) 165 H 158 H (75-99) mg/dL Calcium (8.4-10.2) mg/dL Magnesium (1.6-2.3) mg/dL AST (14-36) U/L Total Protein (6.3-8.2) g/dL Albumin (3.5-5.0) g/dL Arterial Blood Potassium (3.4-4.5) mmol/L Arterial Blood Glucose (75-99) mg/dL Crossmatch 05/02/18 05/02/18 05/02/18 Range/Units 16:01 17:03 18:00 WBC (3.8-10.6) k/uL RBC (3.80-5.40) m/uL Hgb (11.4-16.0) gm/dL Hct (34.0-46.0) % Neutrophils # (1.3-7.7) k/uL Lymphocytes # (1.0-4.8) k/uL ABG pH (7.35-7.45) ABG pCO2 (35-45) mmHg ABG pO2 (83-108) mmHg ABG HCO3 (21-25) mmol/L ABG Total CO2 (19-24) mmol/L ABG O2 Saturation (94-97) % ABG Hematocrit (34.0-46.0) % ABG Potassium (3.4-4.5) mmol/L ABG Ionized Calcium (4.5-5.3) mg/dL ABG Glucose (75-99) mg/dL ABG Lactic Acid (0.5-1.6) mmol/L Hemoglobin (11.4-16.0) gm/dL Chloride (98-107) mmol/L Glucose (74-99) mg/dL POC Glucose (mg/dL) 159 H 160 H 149 H (75-99) mg/dL Calcium (8.4-10.2) mg/dL Magnesium (1.6-2.3) mg/dL AST (14-36) U/L Total Protein (6.3-8.2) g/dL Albumin (3.5-5.0) g/dL Arterial Blood Potassium (3.4-4.5) mmol/L Arterial Blood Glucose (75-99) mg/dL Crossmatch 05/02/18 05/02/18 05/02/18 Range/Units 19:03 20:03 21:00 WBC (3.8-10.6) k/uL RBC 2.79 L (3.80-5.40) m/uL Hgb 8.1 L (11.4-16.0) gm/dL Hct 24.9 L (34.0-46.0) % Neutrophils # 8.2 H (1.3-7.7) k/uL Lymphocytes # 0.3 L (1.0-4.8) k/uL ABG pH (7.35-7.45) ABG pCO2 (35-45) mmHg ABG pO2 (83-108) mmHg ABG HCO3 (21-25) mmol/L ABG Total CO2 (19-24) mmol/L ABG O2 Saturation (94-97) % ABG Hematocrit (34.0-46.0) % ABG Potassium (3.4-4.5) mmol/L ABG Ionized Calcium (4.5-5.3) mg/dL ABG Glucose (75-99) mg/dL ABG Lactic Acid (0.5-1.6) mmol/L Hemoglobin (11.4-16.0) gm/dL Chloride (98-107) mmol/L Glucose (74-99) mg/dL POC Glucose (mg/dL) 143 H 133 H (75-99) mg/dL Calcium (8.4-10.2) mg/dL Magnesium (1.6-2.3) mg/dL AST (14-36) U/L Total Protein (6.3-8.2) g/dL Albumin (3.5-5.0) g/dL Arterial Blood Potassium (3.4-4.5) mmol/L Arterial Blood Glucose (75-99) mg/dL Crossmatch 05/02/18 05/02/18 05/02/18 Range/Units 21:07 21:21 22:02 WBC (3.8-10.6) k/uL RBC (3.80-5.40) m/uL Hgb (11.4-16.0) gm/dL Hct (34.0-46.0) % Neutrophils # (1.3-7.7) k/uL Lymphocytes # (1.0-4.8) k/uL ABG pH (7.35-7.45) ABG pCO2 (35-45) mmHg ABG pO2 (83-108) mmHg ABG HCO3 (21-25) mmol/L ABG Total CO2 25 H (19-24) mmol/L ABG O2 Saturation 98.8 H (94-97) % ABG Hematocrit (34.0-46.0) % ABG Potassium (3.4-4.5) mmol/L ABG Ionized Calcium (4.5-5.3) mg/dL ABG Glucose (75-99) mg/dL ABG Lactic Acid (0.5-1.6) mmol/L Hemoglobin (11.4-16.0) gm/dL Chloride (98-107) mmol/L Glucose (74-99) mg/dL POC Glucose (mg/dL) 154 H 131 H (75-99) mg/dL Calcium (8.4-10.2) mg/dL Magnesium (1.6-2.3) mg/dL AST (14-36) U/L Total Protein (6.3-8.2) g/dL Albumin (3.5-5.0) g/dL Arterial Blood Potassium (3.4-4.5) mmol/L Arterial Blood Glucose (75-99) mg/dL Crossmatch 05/02/18 05/02/18 05/03/18 Range/Units 22:59 23:57 01:05 WBC (3.8-10.6) k/uL RBC (3.80-5.40) m/uL Hgb (11.4-16.0) gm/dL Hct (34.0-46.0) % Neutrophils # (1.3-7.7) k/uL Lymphocytes # (1.0-4.8) k/uL ABG pH (7.35-7.45) ABG pCO2 (35-45) mmHg ABG pO2 (83-108) mmHg ABG HCO3 (21-25) mmol/L ABG Total CO2 (19-24) mmol/L ABG O2 Saturation (94-97) % ABG Hematocrit (34.0-46.0) % ABG Potassium (3.4-4.5) mmol/L ABG Ionized Calcium (4.5-5.3) mg/dL ABG Glucose (75-99) mg/dL ABG Lactic Acid (0.5-1.6) mmol/L Hemoglobin (11.4-16.0) gm/dL Chloride (98-107) mmol/L Glucose (74-99) mg/dL POC Glucose (mg/dL) 118 H 131 H 149 H (75-99) mg/dL Calcium (8.4-10.2) mg/dL Magnesium (1.6-2.3) mg/dL AST (14-36) U/L Total Protein (6.3-8.2) g/dL Albumin (3.5-5.0) g/dL Arterial Blood Potassium (3.4-4.5) mmol/L Arterial Blood Glucose (75-99) mg/dL Crossmatch 05/03/18 05/03/18 05/03/18 Range/Units 02:18 03:10 04:15 WBC (3.8-10.6) k/uL RBC 2.73 L (3.80-5.40) m/uL Hgb 8.2 L (11.4-16.0) gm/dL Hct 23.7 L (34.0-46.0) % Neutrophils # 7.9 H (1.3-7.7) k/uL Lymphocytes # 0.6 L (1.0-4.8) k/uL ABG pH (7.35-7.45) ABG pCO2 (35-45) mmHg ABG pO2 (83-108) mmHg ABG HCO3 (21-25) mmol/L ABG Total CO2 (19-24) mmol/L ABG O2 Saturation (94-97) % ABG Hematocrit (34.0-46.0) % ABG Potassium (3.4-4.5) mmol/L ABG Ionized Calcium (4.5-5.3) mg/dL ABG Glucose (75-99) mg/dL ABG Lactic Acid (0.5-1.6) mmol/L Hemoglobin (11.4-16.0) gm/dL Chloride (98-107) mmol/L Glucose (74-99) mg/dL POC Glucose (mg/dL) 136 H 132 H (75-99) mg/dL Calcium (8.4-10.2) mg/dL Magnesium (1.6-2.3) mg/dL AST (14-36) U/L Total Protein (6.3-8.2) g/dL Albumin (3.5-5.0) g/dL Arterial Blood Potassium (3.4-4.5) mmol/L Arterial Blood Glucose (75-99) mg/dL Crossmatch 05/03/18 05/03/18 05/03/18 Range/Units 04:15 04:15 06:14 WBC (3.8-10.6) k/uL RBC (3.80-5.40) m/uL Hgb (11.4-16.0) gm/dL Hct (34.0-46.0) % Neutrophils # (1.3-7.7) k/uL Lymphocytes # (1.0-4.8) k/uL ABG pH (7.35-7.45) ABG pCO2 (35-45) mmHg ABG pO2 (83-108) mmHg ABG HCO3 (21-25) mmol/L ABG Total CO2 (19-24) mmol/L ABG O2 Saturation (94-97) % ABG Hematocrit (34.0-46.0) % ABG Potassium (3.4-4.5) mmol/L ABG Ionized Calcium (4.5-5.3) mg/dL ABG Glucose (75-99) mg/dL ABG Lactic Acid (0.5-1.6) mmol/L Hemoglobin (11.4-16.0) gm/dL Chloride 108 H (98-107) mmol/L Glucose 117 H (74-99) mg/dL POC Glucose (mg/dL) 133 H 127 H (75-99) mg/dL Calcium 8.3 L (8.4-10.2) mg/dL Magnesium (1.6-2.3) mg/dL AST 66 H (14-36) U/L Total Protein 5.4 L (6.3-8.2) g/dL Albumin 3.1 L (3.5-5.0) g/dL Arterial Blood Potassium (3.4-4.5) mmol/L Arterial Blood Glucose (75-99) mg/dL Crossmatch 05/03/18 05/03/18 Range/Units 07:14 08:08 WBC (3.8-10.6) k/uL RBC (3.80-5.40) m/uL Hgb (11.4-16.0) gm/dL Hct (34.0-46.0) % Neutrophils # (1.3-7.7) k/uL Lymphocytes # (1.0-4.8) k/uL ABG pH (7.35-7.45) ABG pCO2 (35-45) mmHg ABG pO2 (83-108) mmHg ABG HCO3 (21-25) mmol/L ABG Total CO2 (19-24) mmol/L ABG O2 Saturation (94-97) % ABG Hematocrit (34.0-46.0) % ABG Potassium (3.4-4.5) mmol/L ABG Ionized Calcium (4.5-5.3) mg/dL ABG Glucose (75-99) mg/dL ABG Lactic Acid (0.5-1.6) mmol/L Hemoglobin (11.4-16.0) gm/dL Chloride (98-107) mmol/L Glucose (74-99) mg/dL POC Glucose (mg/dL) 131 H 168 H (75-99) mg/dL Calcium (8.4-10.2) mg/dL Magnesium (1.6-2.3) mg/dL AST (14-36) U/L Total Protein (6.3-8.2) g/dL Albumin (3.5-5.0) g/dL Arterial Blood Potassium (3.4-4.5) mmol/L Arterial Blood Glucose (75-99) mg/dL Crossmatch - Imaging and Cardiology Chest x-ray: image reviewed Assessment and Plan (1) COPD (chronic obstructive pulmonary disease) Current Visit: Yes Status: Chronic Code(s): J44.9 - CHRONIC OBSTRUCTIVE PULMONARY DISEASE, UNSPECIFIED SNOMED Code(s): 29055945 (2) Chronic anticoagulation Current Visit: No Status: Chronic Code(s): Z79.01 - FDC (CURRENT) USE OF ANTICOAGULANTS SNOMED Code(s): 190087900 (3) Obstructive sleep apnea Current Visit: Yes Status: Chronic Code(s): G47.33 - OBSTRUCTIVE SLEEP APNEA (ADULT) (PEDIATRIC) SNOMED Code(s): 48611797 (4) Mitral valve regurgitation Current Visit: Yes Status: Chronic Code(s): I34.0 - NONRHEUMATIC MITRAL ( VALVE) INSUFFICIENCY SNOMED Code(s): 21462973 (5) HTN (hypertension) Current Visit: Yes Status: Chronic Code(s): I10 - ESSENTIAL (PRIMARY) HYPERTENSION SNOMED Code(s): 48823827 (6) History of anemia Current Visit: Yes Status: Chronic Code(s): Z86.2 - PRSNL HISTORY OF DIS OF THE BLD/BLD-FORM ORG/IMMUN [facility] SNOMED Code(s): 468154487 (7) History of upper gastrointestinal bleeding Current Visit: No Status: Chronic Code(s): Z87.19 - PERSONAL HISTORY OF OTHER DISEASES OF THE DIGESTIVE SYSTEM SNOMED Code(s): 233537025 (8) Left bundle branch block Current Visit: Yes Status: Chronic Code(s): I44.7 - LEFT BUNDLE-BRANCH BLOCK , UNSPECIFIED SNOMED Code(s): 95973854 (9) Paroxysmal a-fib Current Visit: No Status: Resolved Code(s): I48.0 - PAROXYSMAL ATRIAL FIBRILLATION SNOMED Code(s): 103064944 (10) Rheumatoid arthritis Current Visit: Yes Status: Chronic Code(s): M06.9 - RHEUMATOID ARTHRITIS, UNSPECIFIED SNOMED Code(s): 16698566 Plan: 1. Continue aspirin, statin, beta miguel angel. Will increase beta miguel angel therapy as tolerated. Will not restart flecainide at this time. 2. Wean O2 as tolerated. Encourage incentive spirometry use 10 times every hour while awake. 3. Increase activity, ambulate as tolerated. PT/OT/cardiac rehab following. 4. Will add Lasix 20 mg IV push every 8 hours. Replace electrolytes per protocol. 5. Will monitor daily labs and x-rays. 6. Bronchodilators per pulmonology. 7. Discontinue Albert Lea. Next Cordis to continuous CVP monitoring. 8. Pain control with current medication regimen. Toradol added. 9. Insulin drip per primary care service. 10. GI prophylaxis with Protonix, DVT prophylaxis with subcu heparin, SCDs. 11. Medical management of other comorbidities per primary care service. 12. More recommendations to follow. Time with Patient: Greater than 30
[2018-05-03] MEDS ORDERED: PANTOPRAZOLE 40 MG/10 ML VIAL IVP SCH (09:00)
--- NOTE | 2018-05-03 09:53 | XR ---
EXAMINATION TYPE: XR chest 1V portable DATE OF EXAM: 05/03/2018 COMPARISON: Prior chest x-ray 05/02/2018 HISTORY: Postop cardiac surgery. TECHNIQUE: Single frontal view of the chest is obtained. FINDINGS: There is been interval removal of endotracheal and NG tube. Right jugular central venous s randee is in place, [place]-Kody catheter shows the distal tip overlying the right pulmonary artery. No e vident pneumothorax. Left-sided chest tube remains in place. Patchy basilar density is present, the i nterstitium is somewhat prominent. Central vascularity mildly increased. Patient is rotated, post car diac valve replacement. Heart is enlarged. There are overlying cardiac leads. IMPRESSION: Correlate for volume overload, pulmonary venous hypertension and interstitial edema. Pro bable basilar atelectasis or edema, difficult to exclude small effusion.
[2018-05-03 10:01] LABS: Glucose,Whole Blood 133 mg/dL (75-99)
[2018-05-03 11:09] LABS: Glucose,Whole Blood 108 mg/dL (75-99)
--- NOTE | 2018-05-03 11:23 | CONS ---
ARISTIDES Martin is a 63-year-old lady who is brought in electively for mitral valve annuloplasty. The patient also has chronic atrial fibrillation and underwent modified Mauricio procedure. The patient tolerated the surgery well, has been extubated, currently in stable sinus rhythm, hemodynamically stable, off pressors off vent. PAST MEDICAL HISTORY: Past medical history includes mitral regurgitation. MEDICATIONS: Medications prior to admission include Xarelto, metoprolol, Zestril, Lasix. ALLERGIES: Allergies are as charted. FAMILY HISTORY: Family history is negative for premature coronary artery disease. SOCIAL HISTORY: Social history is negative for current smoking, EtOH abuse, or drug abuse. REVIEW OF SYSTEMS: HEENT is unremarkable. CARDIAC: As described above. RESPIRATORY: Negative. GI: Negative. GENITOURINARY: Negative. ALLERGY/IMMUNOLOGY: Negative. SKIN: Negative. MUSCULOSKELETAL: Significant for arthritis. PSYCHOSOCIAL: Negative. ENDOCRINE: Negative. HEMATOLOGIC: Negative. DERM: Negative. CONSTITUTIONAL: Negative. ONCOLOGICAL: Negative. Rest of the system review is not relevant. PHYSICAL EXAMINATION: On exam, comfortable at rest. Vital signs are stable. Chest exam reveals good air entry bilaterally. Heart exam reveals first and second heart sounds. No gallop. No murmur. No rub. Abdomen is soft, nontender. Examination of the extremities did not reveal any edema. Peripheral pulses are felt. ASSESSMENT: 1. Mitral regurgitation, status post mitral valve repair. 2. Chronic atrial fibrillation, status post Maze procedure. PLAN: We need to resume anticoagulation on this lady. We will talk to the surgeon about this. MMODL / IJN: [id number] /
[2018-05-03 11:53] LABS: Glucose,Whole Blood 103 mg/dL (75-99)
--- NOTE | 2018-05-03 12:04 | P.PN ---
Subjective Progress Note Date: 05/03/18 Principal diagnosis: Status post mitral valve annuloplasty, postoperative day #1. This is a 63-year-old female whom I saw on consultation yesterday, patient is postoperative day #1, mitral valve annuloplasty with 26 mm physio2 ring, modified Mauricio maze procedure bilateral pulmonary vein ablation and proximal lesion with RF. Patient has multiple medical problems which were listed in my consultation, she was extubated around 21:30 PM. Tolerated the extubation well , presently sitting in a bedside chair, in no form of respiratory distress. No specific complaints. She is hemodynamically stable, not requiring any pressors or inotropes. Chest x-ray is reassuring. Objective - Vital Signs Vital signs: Vital Signs Temp 98.8 F 05/03/18 10:00 Pulse 68 05/03/18 11:35 Resp 18 05/03/18 10:00 BP 103/44 05/02/18 15:40 Pulse Ox 100 05/03/18 10:00 Intake & Output 05/02/18 05/03/18 05/03/18 18:59 06:59 18:59 Intake Total 764.117 9448.179 242.572 Output Total 2229 790 300 Balance -1259.056 281.179 -57.428 Weight 111.7 kg 111.7 kg Intake: IV 77 738 176 CO/CI 80 20 Lactated Ringers 1,000 ml 550 120 @ 20 mls/hr IV .Q24H [facility] Rx#:[id number] pressure bag 45 108 36 Intake, IV Titration 892.944 333.179 66.572 Amount ACETAMINOPHEN IV (For NPO 100 200 ) 1,000 mg In Empty Bag 1 bag @ 400 mls/hr IVPB Q6HR [facility] Rx#:[id number] Albumin Human 5% 250 ml 250 In Empty Bag 1 bag @ 250 mls/hr IVPB Q1HR PRN Rx#: [id number] Clevidipine Butyrate 25 33.133 50 mg In Empty Bag 1 bag @ 1 MG/HR 2 mls/hr IV .Q24H [facility] Rx#:[id number] Insulin Regular 100 unit 13.164 35.358 16.572 In Sodium Chloride 0.9% 100 ml @ Per Protocol IV .Q0M [facility] Rx#:[id number] Lactated Ringers 1,000 ml 400 50 @ 20 mls/hr IV .Q24H [facility] Rx#:[id number] Propofol 1,000 mg In 109.780 14.688 Empty Bag 1 bag @ Titrate IV .Q0M [facility] Rx#: [id number] ceFAZolin 2,000 mg In 20 Sodium Chloride 0.9% 30 ml @ Per Protocol IVPB ONCE ONE Rx#:[id number] Output: Chest Tube Drainage 239 330 60 Chest Tube Left Pleural/ 239 330 60 Mediastinal Urine 990 460 240 Estimated Blood Loss 1000 Other: Voiding Method Indwelling Catheter Indwelling Catheter Indwelling Catheter ABP, PAP, CO, CI - Last Documented Arterial Blood Pressure 143/46 Pulmonary Artery Pressure 27/6 Cardiac Output 6.6 Cardiac Index 3.1 - Exam - Constitutional General appearance: Revealed a 63-year-old female in no distress.- Respiratory Details: Lung sounds diminished bilaterally minimal crackles at the bases. Currently on 2 L nasal cannula with oxygen saturation 100%. - Cardiovascular Details: Normal S1 and S2, no S3 gallop, cardiac output is 6.2 and cardiac index is 2.9 without any inotropes. - Gastrointestinal Gastrointestinal Comment(s): Soft nontender no megaly no rebound no guarding positive bowel sounds. - Genitourinary Genitourinary Comment(s): Galeas present draining clear, - Integumentary Integumentary Comment(s): Skin is warm and dry with evidence of good perfusion. No specific rashes noted. - Neurologic Neurologic: Present: CNII-XII intact, no gross focal neurologic deficit. - Musculoskeletal Musculoskeletal: No deformities, normal range of motion. - Psychiatric Psychiatric: Normal mood, affect and mental status examination. Lymphatics: No lymphadenopathy. - Labs CBC & Chem 7: 05/03/18 04:15 05/03/18 04:15 Labs: Abnormal Lab Results - Last 24 Hours (Table) 05/01/18 05/02/18 05/02/18 Range/Units 09:58 10:54 11:31 WBC (3.8-10.6) k/uL RBC (3.80-5.40) m/uL Hgb (11.4-16.0) gm/dL Hct (34.0-46.0) % Neutrophils # (1.3-7.7) k/uL Lymphocytes # (1.0-4.8) k/uL ABG pO2 364 H 379 H (83-108) mmHg ABG HCO3 26 H (21-25) mmol/L ABG Total CO2 27 H 25 H (19-24) mmol/L ABG O2 Saturation 100.0 H 100.0 H (94-97) % ABG Hematocrit 22 L 23 L (34.0-46.0) % ABG Ionized Calcium 4.3 L (4.5-5.3) mg/dL ABG Glucose 134 H 139 H (75-99) mg/dL ABG Lactic Acid 2.7 H* (0.5-1.6) mmol/L Hemoglobin 7.0 L* 7.5 L (11.4-16.0) gm/dL Chloride (98-107) mmol/L Glucose (74-99) mg/dL POC Glucose (mg/dL) (75-99) mg/dL Calcium (8.4-10.2) mg/dL Magnesium (1.6-2.3) mg/dL AST (14-36) U/L Total Protein (6.3-8.2) g/dL Albumin (3.5-5.0) g/dL Arterial Blood Glucose 134 H 139 H (75-99) mg/dL Crossmatch See Detail 05/02/18 05/02/18 05/02/18 Range/Units 11:46 12:59 13:00 WBC 14.7 H (3.8-10.6) k/uL RBC 2.78 L (3.80-5.40) m/uL Hgb 8.3 L D (11.4-16.0) gm/dL Hct 24.5 L (34.0-46.0) % Neutrophils # 11.9 H (1.3-7.7) k/uL Lymphocytes # (1.0-4.8) k/uL ABG pO2 256 H (83-108) mmHg ABG HCO3 (21-25) mmol/L ABG Total CO2 (19-24) mmol/L ABG O2 Saturation 100.0 H (94-97) % ABG Hematocrit 23 L (34.0-46.0) % ABG Ionized Calcium (4.5-5.3) mg/dL ABG Glucose 126 H (75-99) mg/dL ABG Lactic Acid 2.6 H* (0.5-1.6) mmol/L Hemoglobin 7.5 L (11.4-16.0) gm/dL Chloride (98-107) mmol/L Glucose (74-99) mg/dL POC Glucose (mg/dL) 154 H (75-99) mg/dL Calcium (8.4-10.2) mg/dL Magnesium (1.6-2.3) mg/dL AST (14-36) U/L Total Protein (6.3-8.2) g/dL Albumin (3.5-5.0) g/dL Arterial Blood Glucose 126 H (75-99) mg/dL Crossmatch 05/02/18 05/02/18 05/02/18 Range/Units 13:00 13:11 14:00 WBC (3.8-10.6) k/uL RBC (3.80-5.40) m/uL Hgb (11.4-16.0) gm/dL Hct (34.0-46.0) % Neutrophils # (1.3-7.7) k/uL Lymphocytes # (1.0-4.8) k/uL ABG pO2 >400 H (83-108) mmHg ABG HCO3 (21-25) mmol/L ABG Total CO2 26 H (19-24) mmol/L ABG O2 Saturation 100.0 H (94-97) % ABG Hematocrit (34.0-46.0) % ABG Ionized Calcium (4.5-5.3) mg/dL ABG Glucose (75-99) mg/dL ABG Lactic Acid (0.5-1.6) mmol/L Hemoglobin (11.4-16.0) gm/dL Chloride 110 H (98-107) mmol/L Glucose 136 H (74-99) mg/dL POC Glucose (mg/dL) 165 H (75-99) mg/dL Calcium 7.9 L (8.4-10.2) mg/dL Magnesium 3.3 H (1.6-2.3) mg/dL AST 60 H (14-36) U/L Total Protein 5.3 L (6.3-8.2) g/dL Albumin 3.0 L (3.5-5.0) g/dL Arterial Blood Glucose (75-99) mg/dL Crossmatch 05/02/18 05/02/18 05/02/18 Range/Units 15:01 16:00 16:01 WBC (3.8-10.6) k/uL RBC 2.75 L (3.80-5.40) m/uL Hgb 8.1 L (11.4-16.0) gm/dL Hct 24.3 L (34.0-46.0) % Neutrophils # 7.9 H (1.3-7.7) k/uL Lymphocytes # 0.8 L (1.0-4.8) k/uL ABG pO2 (83-108) mmHg ABG HCO3 (21-25) mmol/L ABG Total CO2 (19-24) mmol/L ABG O2 Saturation (94-97) % ABG Hematocrit (34.0-46.0) % ABG Ionized Calcium (4.5-5.3) mg/dL ABG Glucose (75-99) mg/dL ABG Lactic Acid (0.5-1.6) mmol/L Hemoglobin (11.4-16.0) gm/dL Chloride (98-107) mmol/L Glucose (74-99) mg/dL POC Glucose (mg/dL) 158 H 159 H (75-99) mg/dL Calcium (8.4-10.2) mg/dL Magnesium (1.6-2.3) mg/dL AST (14-36) U/L Total Protein (6.3-8.2) g/dL Albumin (3.5-5.0) g/dL Arterial Blood Glucose (75-99) mg/dL Crossmatch 05/02/18 05/02/18 05/02/18 Range/Units 17:03 18:00 19:03 WBC (3.8-10.6) k/uL RBC (3.80-5.40) m/uL Hgb (11.4-16.0) gm/dL Hct (34.0-46.0) % Neutrophils # (1.3-7.7) k/uL Lymphocytes # (1.0-4.8) k/uL ABG pO2 (83-108) mmHg ABG HCO3 (21-25) mmol/L ABG Total CO2 (19-24) mmol/L ABG O2 Saturation (94-97) % ABG Hematocrit (34.0-46.0) % ABG Ionized Calcium (4.5-5.3) mg/dL ABG Glucose (75-99) mg/dL ABG Lactic Acid (0.5-1.6) mmol/L Hemoglobin (11.4-16.0) gm/dL Chloride (98-107) mmol/L Glucose (74-99) mg/dL POC Glucose (mg/dL) 160 H 149 H 143 H (75-99) mg/dL Calcium (8.4-10.2) mg/dL Magnesium (1.6-2.3) mg/dL AST (14-36) U/L Total Protein (6.3-8.2) g/dL Albumin (3.5-5.0) g/dL Arterial Blood Glucose (75-99) mg/dL Crossmatch 05/02/18 05/02/18 05/02/18 Range/Units 20:03 21:00 21:07 WBC (3.8-10.6) k/uL RBC 2.79 L (3.80-5.40) m/uL Hgb 8.1 L (11.4-16.0) gm/dL Hct 24.9 L (34.0-46.0) % Neutrophils # 8.2 H (1.3-7.7) k/uL Lymphocytes # 0.3 L (1.0-4.8) k/uL ABG pO2 (83-108) mmHg ABG HCO3 (21-25) mmol/L ABG Total CO2 (19-24) mmol/L ABG O2 Saturation (94-97) % ABG Hematocrit (34.0-46.0) % ABG Ionized Calcium (4.5-5.3) mg/dL ABG Glucose (75-99) mg/dL ABG Lactic Acid (0.5-1.6) mmol/L Hemoglobin (11.4-16.0) gm/dL Chloride (98-107) mmol/L Glucose (74-99) mg/dL POC Glucose (mg/dL) 133 H 154 H (75-99) mg/dL Calcium (8.4-10.2) mg/dL Magnesium (1.6-2.3) mg/dL AST (14-36) U/L Total Protein (6.3-8.2) g/dL Albumin (3.5-5.0) g/dL Arterial Blood Glucose (75-99) mg/dL Crossmatch 05/02/18 05/02/18 05/02/18 Range/Units 21:21 22:02 22:59 WBC (3.8-10.6) k/uL RBC (3.80-5.40) m/uL Hgb (11.4-16.0) gm/dL Hct (34.0-46.0) % Neutrophils # (1.3-7.7) k/uL Lymphocytes # (1.0-4.8) k/uL ABG pO2 (83-108) mmHg ABG HCO3 (21-25) mmol/L ABG Total CO2 25 H (19-24) mmol/L ABG O2 Saturation 98.8 H (94-97) % ABG Hematocrit (34.0-46.0) % ABG Ionized Calcium (4.5-5.3) mg/dL ABG Glucose (75-99) mg/dL ABG Lactic Acid (0.5-1.6) mmol/L Hemoglobin (11.4-16.0) gm/dL Chloride (98-107) mmol/L Glucose (74-99) mg/dL POC Glucose (mg/dL) 131 H 118 H (75-99) mg/dL Calcium (8.4-10.2) mg/dL Magnesium (1.6-2.3) mg/dL AST (14-36) U/L Total Protein (6.3-8.2) g/dL Albumin (3.5-5.0) g/dL Arterial Blood Glucose (75-99) mg/dL Crossmatch 05/02/18 05/03/18 05/03/18 Range/Units 23:57 01:05 02:18 WBC (3.8-10.6) k/uL RBC (3.80-5.40) m/uL Hgb (11.4-16.0) gm/dL Hct (34.0-46.0) % Neutrophils # (1.3-7.7) k/uL Lymphocytes # (1.0-4.8) k/uL ABG pO2 (83-108) mmHg ABG HCO3 (21-25) mmol/L ABG Total CO2 (19-24) mmol/L ABG O2 Saturation (94-97) % ABG Hematocrit (34.0-46.0) % ABG Ionized Calcium (4.5-5.3) mg/dL ABG Glucose (75-99) mg/dL ABG Lactic Acid (0.5-1.6) mmol/L Hemoglobin (11.4-16.0) gm/dL Chloride (98-107) mmol/L Glucose (74-99) mg/dL POC Glucose (mg/dL) 131 H 149 H 136 H (75-99) mg/dL Calcium (8.4-10.2) mg/dL Magnesium (1.6-2.3) mg/dL AST (14-36) U/L Total Protein (6.3-8.2) g/dL Albumin (3.5-5.0) g/dL Arterial Blood Glucose (75-99) mg/dL Crossmatch 05/03/18 05/03/18 05/03/18 Range/Units 03:10 04:15 04:15 WBC (3.8-10.6) k/uL RBC 2.73 L (3.80-5.40) m/uL Hgb 8.2 L (11.4-16.0) gm/dL Hct 23.7 L (34.0-46.0) % Neutrophils # 7.9 H (1.3-7.7) k/uL Lymphocytes # 0.6 L (1.0-4.8) k/uL ABG pO2 (83-108) mmHg ABG HCO3 (21-25) mmol/L ABG Total CO2 (19-24) mmol/L ABG O2 Saturation (94-97) % ABG Hematocrit (34.0-46.0) % ABG Ionized Calcium (4.5-5.3) mg/dL ABG Glucose (75-99) mg/dL ABG Lactic Acid (0.5-1.6) mmol/L Hemoglobin (11.4-16.0) gm/dL Chloride 108 H (98-107) mmol/L Glucose 117 H (74-99) mg/dL POC Glucose (mg/dL) 132 H (75-99) mg/dL Calcium 8.3 L (8.4-10.2) mg/dL Magnesium (1.6-2.3) mg/dL AST 66 H (14-36) U/L Total Protein 5.4 L (6.3-8.2) g/dL Albumin 3.1 L (3.5-5.0) g/dL Arterial Blood Glucose (75-99) mg/dL Crossmatch 05/03/18 05/03/18 05/03/18 Range/Units 04:15 06:14 07:14 WBC (3.8-10.6) k/uL RBC (3.80-5.40) m/uL Hgb (11.4-16.0) gm/dL Hct (34.0-46.0) % Neutrophils # (1.3-7.7) k/uL Lymphocytes # (1.0-4.8) k/uL ABG pO2 (83-108) mmHg ABG HCO3 (21-25) mmol/L ABG Total CO2 (19-24) mmol/L ABG O2 Saturation (94-97) % ABG Hematocrit (34.0-46.0) % ABG Ionized Calcium (4.5-5.3) mg/dL ABG Glucose (75-99) mg/dL ABG Lactic Acid (0.5-1.6) mmol/L Hemoglobin (11.4-16.0) gm/dL Chloride (98-107) mmol/L Glucose (74-99) mg/dL POC Glucose (mg/dL) 133 H 127 H 131 H (75-99) mg/dL Calcium (8.4-10.2) mg/dL Magnesium (1.6-2.3) mg/dL AST (14-36) U/L Total Protein (6.3-8.2) g/dL Albumin (3.5-5.0) g/dL Arterial Blood Glucose (75-99) mg/dL Crossmatch 05/03/18 05/03/18 05/03/18 Range/Units 08:08 10:00 11:08 WBC (3.8-10.6) k/uL RBC (3.80-5.40) m/uL Hgb (11.4-16.0) gm/dL Hct (34.0-46.0) % Neutrophils # (1.3-7.7) k/uL Lymphocytes # (1.0-4.8) k/uL ABG pO2 (83-108) mmHg ABG HCO3 (21-25) mmol/L ABG Total CO2 (19-24) mmol/L ABG O2 Saturation (94-97) % ABG Hematocrit (34.0-46.0) % ABG Ionized Calcium (4.5-5.3) mg/dL ABG Glucose (75-99) mg/dL ABG Lactic Acid (0.5-1.6) mmol/L Hemoglobin (11.4-16.0) gm/dL Chloride (98-107) mmol/L Glucose (74-99) mg/dL POC Glucose (mg/dL) 168 H 133 H 108 H (75-99) mg/dL Calcium (8.4-10.2) mg/dL Magnesium (1.6-2.3) mg/dL AST (14-36) U/L Total Protein (6.3-8.2) g/dL Albumin (3.5-5.0) g/dL Arterial Blood Glucose (75-99) mg/dL Crossmatch 05/03/18 Range/Units 11:52 WBC (3.8-10.6) k/uL RBC (3.80-5.40) m/uL Hgb (11.4-16.0) gm/dL Hct (34.0-46.0) % Neutrophils # (1.3-7.7) k/uL Lymphocytes # (1.0-4.8) k/uL ABG pO2 (83-108) mmHg ABG HCO3 (21-25) mmol/L ABG Total CO2 (19-24) mmol/L ABG O2 Saturation (94-97) % ABG Hematocrit (34.0-46.0) % ABG Ionized Calcium (4.5-5.3) mg/dL ABG Glucose (75-99) mg/dL ABG Lactic Acid (0.5-1.6) mmol/L Hemoglobin (11.4-16.0) gm/dL Chloride (98-107) mmol/L Glucose (74-99) mg/dL POC Glucose (mg/dL) 103 H (75-99) mg/dL Calcium (8.4-10.2) mg/dL Magnesium (1.6-2.3) mg/dL AST (14-36) U/L Total Protein (6.3-8.2) g/dL Albumin (3.5-5.0) g/dL Arterial Blood Glucose (75-99) mg/dL Crossmatch Assessment and Plan Assessment: #1. Severe mitral regurgitation, status post mitral valve repair modified Maze , postoperative day #1 #2. Routine postoperative ventilator management, patient was extubated last night without any complications. Extubated at 21:30 #3. Postop blood loss anemia, and expected outcomes of surgery #4. History of atrial fibrillation, post-ablation #5. Rheumatoid arthritis #6. Hypertension #7. Recent hospitalization for pulmonary edema #8. Obstructive sleep apnea, on CPAP therapy #9. History of Liver lesion possibly hemangioma #10. History of GI bleeding, history of antral ulcer, presently stable. Recommendation: Continue present supportive care measures, continue to monitor in the ICU, incentive spirometry, bronchodilators, early ambulation. We'll continue to follow. Time with Patient: Less than 30
[2018-05-03] MEDS ORDERED: BISACODYL 10 MG SUPP RECTAL PRN (12:07)
[2018-05-03] MEDS ORDERED: MAGNESIUM HYDROXIDE 2,400 MG/10 ML CUP PO PRN (12:07)
[2018-05-03] MEDS: HYDROcodone/APAP 5-325MG 1 EACH TAB PO PRN ×3 (12:54→20:55)
[2018-05-03 12:59] LABS: Glucose,Whole Blood 148 mg/dL (75-99)
[2018-05-03 14:01] LABS: Glucose,Whole Blood 164 mg/dL (75-99)
--- NOTE | 2018-05-03 14:56 | CDI ---
Last Revision, June 2017 Documentation Clarification Form Date: 05/03/18 From: Analisa Fan RN Admit Date: 05/02/2018 5:34:00 AM Patient Name: Veronica Mckeon Visit Number: [id number] ATTENTION: The Clinical Documentation Specialists (CDI) and [facility] Coding Staff appreciate your assistance in clarifying documentation. Please respond to the clarification below the line at the bottom and electronically sign. The CDI & [facility] Coding staff will review the response and follow-up if needed. Please note: Queries are made part of the Legal Health Record. If you have any questions please contact the author of this message via ITS. Dr Dixie Abebe MD, History of Heart failure is documented in the PN 05/02 and in the consult dated 05/02, it is also charted that the EF is 55-60%. 05/07 PN: "CXR showed findings consistent with CHF". Patient came in for electively for mitral valve annuloplasty. History/Risk Factors: FIB, chest pain/angina, heart failure, GI bleed, HTN, RA, apnea, MRSA Clinical Indicators: VS on admission: T 97.9, P 62, R 18, 135/65, 98% RA Chest X Ray: postsurgical changes with bilateral consolidation and pleural effusion greater on the left. Correlate for underlying venous congestion. Treatment: Lasix IV Q 8hr, Metoprolol Monitor labs Fluid restriction, daily weights, color television console monitor In your professional opinion, can you please clarify the acuity and type of CHF if known? Diastolic Heart Failure: Acute Chronic Acute on Chronic Systolic & Diastolic Heart Failure: Acute Chronic Acute on Chronic Heart Failure Unable to Determine Other, please specify Unable to Determine MTDD
[2018-05-03 14:58] LABS: Glucose,Whole Blood 147 mg/dL (75-99)
[2018-05-03 16:19] LABS: Glucose,Whole Blood 121 mg/dL (75-99)
[2018-05-03 17:09] LABS: Glucose,Whole Blood 93 mg/dL (75-99)
[2018-05-03] MEDS: INSULIN ASPART 100 UNIT/ML 1 ML 10 ML VIAL SQ SCH ×2 (17:11→20:53)
[2018-05-03 20:45] LABS: Glucose,Whole Blood 130 mg/dL (75-99)
[2018-05-03] MEDS: SENNOSIDES-DOCUSATE SODIUM 1 EACH TAB PO SCH (20:54)
[2018-05-03] MEDS: PANTOPRAZOLE 40 MG/10 ML VIAL IVP SCH (20:55)
--- NOTE | 2018-05-03 22:17 | CONS ---
CONSULTATION DATE OF CONSULTATION: 05/03/2018 REASON FOR CONSULTATION: Advice regarding CHF and atrial fibrillation, and other medical issues requested by Cardiothoracic surgery. HISTORY OF PRESENT ILLNESS: This 63-year-old woman with a past history of atrial ablation CHF, GI bleed, hypertension, and rheumatoid arthritis,sleep apnea, being followed by Dr. Santiago in the outpatient setting, was admitted after mitral valve annuloplasty for mitral regurgitation, paroxysmal atrial fibrillation by Dr. Horowitz. The patient is extubated. Patient being closely monitored. Patient is monitored in ICU. There is no history of fever, rigors or chills. No history of headache, loss of consciousness. No chest pain, palpitations at this time. PAST MEDICAL HISTORY: History of atrial fibrillation, history of CHF, GI bleed, hypertension, rheumatoid arthritis, sleep apnea. MEDICATIONS: Home medications are: 1. application topically p.r.n. 2. Xarelto 20 mg q.h.s. 3. Klor-Con 20 mEq p.o. b.i.d. 4. Prilosec 20 mg b.i.d. 5. Metoprolol 25 mg b.i.d. 6. Zestril 5 mg p.o. daily. 7. Lasix 40 mg b.i.d. 8. Tambocor 100 mg p.o. b.i.d. 9. Iron 320 mg p.o. b.i.d. 10.Desenex 2% cream topically b.i.d. ALLERGIES: None. FAMILY HISTORY: History of CHF, diabetes mellitus, history of spinal stenosis in the family. SOCIAL HISTORY: No history of smoking. No history of alcohol intake. REVIEW OF SYSTEMS: ENT: No diminished hearing or vision. CARDIOVASCULAR: As mentioned earlier. RESPIRATORY: As mentioned earlier. GI no nausea or vomiting. no dysuria. Nervous system: No numbness or weakness. Allergy /Immunology: No asthma or hayfever. Musculoskeletal as mentioned earlier. Hematology/Oncology: No history of anemia. Endocrine: No history of diabetes or hypothyroidism. CONSTITUTIONAL: As mentioned earlier. Dermatology: Negative. Rheumatology: Negative. Psychiatry: As mentioned. PHYSICAL EXAMINATION: Alert, oriented x3. Pulse 74. Blood pressure 147/68, respiration 17, temperature 99 degrees, pulse ox 98% on 2 L. HEENT: Conjunctivae normal. Oral mucosa moist. Neck is no jugular venous distention. No carotid bruit. No lymph node enlargement. Cardiovascular: S1, S2 muffled, status post surgery. No S3 and no S4. RESPIRATORY: Breath sounds diminished in the bases. A few scattered rhonchi and crackles. ABDOMEN: Soft, nontender. No mass palpable. LEGS: No edema. No swelling. No system: Higher functions as mentioned earlier. Moves all four extremities. No focal motor or sensory deficits. Lymphatics: No lymph nodes palpable in the neck, axillae or groin. SKIN: No ulcer, rash or bleeding. LABS: Accu-Cheks 148, 164. WBC 10.2, hemoglobin is 8.2. The CMP showed glucose of 117, calcium 8.3, and AST is 60 and albumin is 3.1. ASSESSMENT: 1. Status post mitral valve annuloplasty for mitral regurgitation, paroxysmal atrial fibrillation. 2. History of gastrointestinal bleed. 3. Hypertension. 4. Rheumatoid arthritis. 5. Sleep apnea. 6. History of recent antral ulcer and anemia. 7. History of cardiac cath. 8. Degenerative joint disease. 9. Obesity with body mass index 41. RECOMMENDATIONS AND DISCUSSION: In this 63-year-old woman who presented with multiple complex medical issues, we will monitor the patient closely, continue the current medications, continue management and symptomatic treatment. Recommend incentive spirometry, DVT prophylaxis. Monitor Accu- Cheks closely and NovoLog scale. Otherwise, I would recommend follow up labs. We will follow the patient closely with you and home medication may be continued once the patient is p.o. We will follow the patient closely with you. Thank you for letting us participate in the care of this patient. MMODL / IJN: [id number] / VIOLA
[2018-05-04] MEDS: HYDROcodone/APAP 5-325MG 1 EACH TAB PO PRN ×5 (02:22→21:45)
[2018-05-04 04:37] LABS: Basophils % (A) 0 %; Eosinophils % (A) 0 %; HCT 21.3 % (34.0-46.0); HGB 7.2 gm/dL (11.4-16.0); Lymphocytes # (A) 1.3 k/uL (1.0-4.8); Lymphocytes % (A) 17 %; MCH 29.8 pg (25.0-35.0); MCHC 33.6 g/dL (31.0-37.0); MCV 88.8 fL (80.0-100.0); Mean Platelet Volume 8.9; Monocytes # (A) 0.5 k/uL (0-1.0); Monocytes % (A) 6 %; Neutrophils # (A) 5.9 k/uL (1.3-7.7); Neutrophils % (A) 76 %; Platelet Count 125 k/uL (150-450); RDW 14.6 % (11.5-15.5); WBC 7.8 k/uL (3.8-10.6)
[2018-05-04 04:58] LABS: ALT 36 U/L (9-52); AST 39 U/L (14-36); Albumin 2.7 g/dL (3.5-5.0); Alkaline Phosphatase 48 U/L (38-126); Anion Gap 6 mmol/L; Blood Urea Nitrogen 12 mg/dL (7-17); Calcium 8.1 mg/dL (8.4-10.2); Carbon Dioxide 26 mmol/L (22-30); Chloride 103 mmol/L (98-107); Glucose 117 mg/dL (74-99); Magnesium 1.8 mg/dL (1.6-2.3); Sodium 135 mmol/L (137-145); Total Bilirubin 0.4 mg/dL (0.2-1.3)
[2018-05-04] MEDS: KETOROLAC 30 MG/ML 1 ML VIAL IVP SCH ×3 (06:16→18:26)
[2018-05-04] MEDS: HEPARIN SODIUM,PORCINE 5,000 UNIT/ML 1 ML VIAL SQ SCH ×3 (06:17→21:30)
[2018-05-04] MEDS: MAGNESIUM SULFATE-D5W PMX 1 GM in DEXTROSE/WATER 1 100ML.BAG IVPB SCH ×2 (06:28→08:28)
[2018-05-04 07:14] LABS: Glucose,Whole Blood 133 mg/dL (75-99)
[2018-05-04] MEDS: INSULIN ASPART 100 UNIT/ML 1 ML 10 ML VIAL SQ SCH ×4 (08:01→21:29)
[2018-05-04] MEDS: IPRATROPIUM-ALBUTEROL 3 ML NEB INHALATION SCH ×4 (08:08→19:18)
[2018-05-04] MEDS: ASPIRIN 325 MG TAB PO SCH (08:28)
[2018-05-04] MEDS: METOPROLOL TARTRATE 12.5 MG TAB PO SCH (08:28)
[2018-05-04] MEDS: FUROSEMIDE 10 MG/ML 2 ML VIAL IV SCH ×2 (08:28→15:34)
[2018-05-04] MEDS: PANTOPRAZOLE 40 MG/10 ML VIAL IVP SCH ×2 (08:28→21:30)
[2018-05-04] MEDS: LACTATED RINGERS 1,000 ML IV SCH (08:30)
[2018-05-04] MEDS: MUPIROCIN 2% OINT 22 GM TUBE NASAL SCH ×2 (08:31→21:30)
[2018-05-04] MEDS: ATORVASTATIN 40 MG TAB PO SCH (08:31)
--- NOTE | 2018-05-04 08:54 | XR ---
EXAMINATION TYPE: XR chest 1V portable DATE OF EXAM: 05/04/2018 COMPARISON: 05/03/2018 HISTORY: Postop TECHNIQUE: Single frontal view of the chest is obtained. FINDINGS: Bilateral consolidation and pleural effusion seen. Mediastinal drain and chest tube noted. Mild central venous congestion not excluded. Heart size is mildly prominent. Vascular sheath again i n stable position. Arthropathy of the shoulders. Postsurgical changes. IMPRESSION: 1. Postsurgical changes with bilateral lower lobe infiltrate and small effusion. Correlate for underl andrew venous congestion.
--- NOTE | 2018-05-04 10:39 | P.PN ---
Subjective Progress Note Date: 05/04/18 Principal diagnosis: Status post mitral valve annuloplasty, postoperative day #2 This is a 63-year-old female whom I saw on consultation yesterday, patient is postoperative day #1, mitral valve annuloplasty with 26 mm physio2 ring, modified Mauricio maze procedure bilateral pulmonary vein ablation and proximal lesion with RF. Patient has multiple medical problems which were listed in my consultation, she was extubated around 21:30 PM. Tolerated the extubation well , presently sitting in a bedside chair, in no form of respiratory distress. No specific complaints. She is hemodynamically stable, not requiring any pressors or inotropes. Chest x-ray is reassuring. Reevaluated today on 05/04/2018, patient is postoperative day #2. Overall the patient is doing great, chest x-ray is showing some left lower lobe atelectasis and small left pleural effusion. However a curtis is asymptomatic, denies any shortness of breath, no cough, no wheezing. Labs were reviewed she had a relatively normal basic metabolic profile, normal CBC hemoglobin is 7.2 however. Objective - Vital Signs Vital signs: Vital Signs Temp 97.6 F 05/04/18 04:00 Pulse 62 05/04/18 08:18 Resp 15 05/04/18 08:08 BP 138/48 05/04/18 07:00 Pulse Ox 99 05/04/18 07:00 Intake & Output 05/03/18 05/04/18 05/04/18 18:59 06:59 18:59 Intake Total 1844.220 396 314 Output Total 1220 865 300 Balance 624.220 -469 14 Weight 111.7 kg 113.6 kg 113.6 kg Intake: IV 454 396 314 CO/CI 20 Lactated Ringers 1,000 ml 380 330 90 @ 20 mls/hr IV .Q24H [facility] Rx#:[id number] Magnesium Sulfate-D5w Pmx 200 1 gm In Dextrose/Water 1 100ml.bag @ 100 mls/hr IVPB Q1H [facility] Rx#: [id number] pressure bag 54 66 24 Intake, IV Titration 70.220 Amount Clevidipine Butyrate 25 50 mg In Empty Bag 1 bag @ 1 MG/HR 2 mls/hr IV .Q24H [facility] Rx#:[id number] Insulin Regular 100 unit 20.220 In Sodium Chloride 0.9% 100 ml @ Per Protocol IV .Q0M [facility] Rx#:[id number] Oral 1320 Output: Chest Tube Drainage 285 240 40 Chest Tube Left Pleural/ 285 240 40 Mediastinal Urine 935 625 260 Other: Voiding Method Indwelling Catheter Indwelling Catheter ABP, PAP, CO, CI - Last Documented Arterial Blood Pressure 122/41 Pulmonary Artery Pressure 27/6 Cardiac Output 6.6 Cardiac Index 3.1 - Exam - Constitutional General appearance: Revealed a 63-year-old female in no distress. - Respiratory Details: Lung sounds diminished bilaterally minimal crackles at the bases. Currently on 2 L nasal cannula with excellent saturations noted - Cardiovascular Details: Normal S1 and S2, no S3 gallop, - Gastrointestinal Gastrointestinal Comment(s): Soft nontender no megaly no rebound no guarding positive bowel sounds. - Genitourinary Genitourinary Comment(s): Galeas present draining clear, - Integumentary Integumentary Comment(s): Skin is warm and dry with evidence of good perfusion. No specific rashes noted. - Neurologic Neurologic: Present: CNII-XII intact, no gross focal neurologic deficit. - Musculoskeletal Musculoskeletal: No deformities, normal range of motion. - Psychiatric Psychiatric: Normal mood, affect and mental status examination. Lymphatics: No palpable adenopathy. - Labs CBC & Chem 7: 05/04/18 04:30 05/04/18 04:30 Labs: Abnormal Lab Results - Last 24 Hours (Table) 05/03/18 05/03/18 05/03/18 Range/Units 11:08 11:52 12:57 RBC (3.80-5.40) m/uL Hgb (11.4-16.0) gm/dL Hct (34.0-46.0) % Plt Count (150-450) k/uL Sodium (137-145) mmol/L Glucose (74-99) mg/dL POC Glucose (mg/dL) 108 H 103 H 148 H (75-99) mg/dL Calcium (8.4-10.2) mg/dL AST (14-36) U/L Total Protein (6.3-8.2) g/dL Albumin (3.5-5.0) g/dL 05/03/18 05/03/18 05/03/18 Range/Units 13:59 14:57 16:17 RBC (3.80-5.40) m/uL Hgb (11.4-16.0) gm/dL Hct (34.0-46.0) % Plt Count (150-450) k/uL Sodium (137-145) mmol/L Glucose (74-99) mg/dL POC Glucose (mg/dL) 164 H 147 H 121 H (75-99) mg/dL Calcium (8.4-10.2) mg/dL AST (14-36) U/L Total Protein (6.3-8.2) g/dL Albumin (3.5-5.0) g/dL 05/03/18 05/04/18 05/04/18 Range/Units 20:44 04:30 04:30 RBC 2.40 L (3.80-5.40) m/uL Hgb 7.2 L (11.4-16.0) gm/dL Hct 21.3 L (34.0-46.0) % Plt Count 125 L (150-450) k/uL Sodium 135 L (137-145) mmol/L Glucose 117 H (74-99) mg/dL POC Glucose (mg/dL) 130 H (75-99) mg/dL Calcium 8.1 L (8.4-10.2) mg/dL AST 39 H (14-36) U/L Total Protein 5.0 L (6.3-8.2) g/dL Albumin 2.7 L (3.5-5.0) g/dL 05/04/18 Range/Units 07:13 RBC (3.80-5.40) m/uL Hgb (11.4-16.0) gm/dL Hct (34.0-46.0) % Plt Count (150-450) k/uL Sodium (137-145) mmol/L Glucose (74-99) mg/dL POC Glucose (mg/dL) 133 H (75-99) mg/dL Calcium (8.4-10.2) mg/dL AST (14-36) U/L Total Protein (6.3-8.2) g/dL Albumin (3.5-5.0) g/dL Assessment and Plan Assessment: #1. Severe mitral regurgitation, status post mitral valve repair modified Maze , postoperative day #2 #2. Routine postoperative ventilator management, uneventful postoperative ventilatory management. #3. Postop blood loss anemia, and expected outcomes of surgery #4. History of atrial fibrillation, post-ablation #5. Rheumatoid arthritis #6. Hypertension #7. Recent hospitalization for pulmonary edema #8. Obstructive sleep apnea, on CPAP therapy #9. History of Liver lesion possibly hemangioma #10. History of GI bleeding, history of antral ulcer, presently stable. Recommendation: Continue incentive spirometry, continue bronchodilators, early ambulation, we'll likely transfer out of the ICU today, discussed with the patient the findings on her chest x-ray and stress the importance of incentive spirometry. Time with Patient: Less than 30
[2018-05-04 12:03] LABS: Glucose,Whole Blood 151 mg/dL (75-99)
--- NOTE | 2018-05-04 13:48 | P.PN ---
Subjective Progress Note Date: 05/04/18 Principal diagnosis: Severe mitral valve regurgitation. Paroxysmal atrial fibrillation on Xarelto for anticoagulation status post ablation and cardioversions. History of hypertension, hyperlipidemia, rheumatoid arthritis, obesity with a BMI of 40, obstructive sleep apnea with home CPAP use, moderate COPD with preoperative FEV1 52% of predicted, anemia, gastric ulcer, history of MRSA to her right arm, and preoperative nasal swab positive for MSSA. POD #2 mitral valve annuloplasty with 26 mm physio-2 ring, modified Mauricio maze procedure with a full left-sided lesion set including coronary sinus lesion and mitral annular attachment with cryo-probe as well as high lateral pulmonary vein ablation and proximal lesion with RF. Closure of the left atrial appendage. The patient is sitting up to the bedside chair. She is in no acute distress. Currently she rates her pain 4 out of 10 on the pain scale. Denies any complaints of shortness of breath. She reports that she ambulated in her room to the doorway this morning and tolerated that well. She is afebrile. Oxygen saturations are 93% on room air. She is achieving 750-1000 mL on her incentive spirometry. Objective - Vital Signs Vital signs: Vital Signs Temp 97.6 F 05/04/18 04:00 Pulse 63 05/04/18 08:08 Resp 15 05/04/18 08:08 BP 138/48 05/04/18 07:00 Pulse Ox 99 05/04/18 07:00 Intake & Output 05/03/18 05/04/18 05/04/18 18:59 06:59 18:59 Intake Total 1844.220 396 36 Output Total 1220 865 25 Balance 624.220 -469 11 Weight 111.7 kg 113.6 kg Intake: IV 454 396 36 CO/CI 20 Lactated Ringers 1,000 ml 380 330 30 @ 20 mls/hr IV .Q24H [facility] Rx#:[id number] pressure bag 54 66 6 Intake, IV Titration 70.220 Amount Clevidipine Butyrate 25 50 mg In Empty Bag 1 bag @ 1 MG/HR 2 mls/hr IV .Q24H [facility] Rx#:[id number] Insulin Regular 100 unit 20.220 In Sodium Chloride 0.9% 100 ml @ Per Protocol IV .Q0M [facility] Rx#:[id number] Oral 1320 Output: Chest Tube Drainage 285 240 Chest Tube Left Pleural/ 285 240 Mediastinal Urine 935 625 25 Other: Voiding Method Indwelling Catheter Indwelling Catheter ABP, PAP, CO, CI - Last Documented Arterial Blood Pressure 122/41 Pulmonary Artery Pressure 27/6 Cardiac Output 6.6 Cardiac Index 3.1 - Constitutional General appearance: Present: cooperative, no acute distress, obese - Respiratory Details: Lungs sounds are essentially clear throughout, few scattered crackles to her bilateral bases. Respirations are symmetrical and nonlabored. Oxygen saturation are 93% on room air. She is achieving 750-1000 mL on her incentive spirometry. Mediastinal and left pleural chest tubes remain to low continuous wall suction. No air leak is present. Draining thin serosanguineous drainage. 160 mL output in the last 8 hours, 520 mL output in the last 24 hours. - Cardiovascular Details: Regular rhythm and rate. S1 and S2 present, negative for S3, gallop or murmur. Sternum is stable. Bedside telemetry showing normal sinus rhythm with bundle branch block heart rate 62. Atrial and ventricular epicardial pacemaker wires present and grounded. No edema present. Right IJ Cordis in place to continue CVP monitoring. Current CVP pressure is 9 mmHg. Left radial arterial line in place and functioning. Heart hugger is in place and she is demonstrating appropriate use. Knee-high FACUNDO hose and sequential compression devices in place to bilateral lower extremities. - Gastrointestinal Gastrointestinal Comment(s): Abdomen is soft, nontender and nondistended. Active bowel sounds to all 4 abdominal quadrants. Tolerating oral intake. Passing flatus. No bowel movement since surgery. - Genitourinary Genitourinary Comment(s): Galeas catheter for accurate I&O. Draining clear yellow urine. 510 mL output in the last 8 hours. - Integumentary Integumentary Comment(s): Skin is warm and dry. No clubbing or cyanosis present. Midline sternal incision clean and dry and approximated, no drainage or redness present. Gauze dressing clean and dry and intact. No rash or abnormal pigmentation present. - Neurologic Neurologic Comment(s): No focal deficits. Neurologic: Present: CNII-XII intact - Musculoskeletal Musculoskeletal: Present: gait normal, generalized weakness, strength equal bilaterally - Psychiatric Psychiatric: Present: A&O x's 3, appropriate affect, intact judgment & insight - Allied health notes Allied health notes reviewed: nursing - Labs CBC & Chem 7: 05/04/18 04:30 05/04/18 04:30 Labs: Abnormal Lab Results - Last 24 Hours (Table) 05/03/18 05/03/18 05/03/18 Range/Units 10:00 11:08 11:52 RBC (3.80-5.40) m/uL Hgb (11.4-16.0) gm/dL Hct (34.0-46.0) % Plt Count (150-450) k/uL Sodium (137-145) mmol/L Glucose (74-99) mg/dL POC Glucose (mg/dL) 133 H 108 H 103 H (75-99) mg/dL Calcium (8.4-10.2) mg/dL AST (14-36) U/L Total Protein (6.3-8.2) g/dL Albumin (3.5-5.0) g/dL 05/03/18 05/03/18 05/03/18 Range/Units 12:57 13:59 14:57 RBC (3.80-5.40) m/uL Hgb (11.4-16.0) gm/dL Hct (34.0-46.0) % Plt Count (150-450) k/uL Sodium (137-145) mmol/L Glucose (74-99) mg/dL POC Glucose (mg/dL) 148 H 164 H 147 H (75-99) mg/dL Calcium (8.4-10.2) mg/dL AST (14-36) U/L Total Protein (6.3-8.2) g/dL Albumin (3.5-5.0) g/dL 05/03/18 05/03/18 05/04/18 Range/Units 16:17 20:44 04:30 RBC (3.80-5.40) m/uL Hgb (11.4-16.0) gm/dL Hct (34.0-46.0) % Plt Count (150-450) k/uL Sodium 135 L (137-145) mmol/L Glucose 117 H (74-99) mg/dL POC Glucose (mg/dL) 121 H 130 H (75-99) mg/dL Calcium 8.1 L (8.4-10.2) mg/dL AST 39 H (14-36) U/L Total Protein 5.0 L (6.3-8.2) g/dL Albumin 2.7 L (3.5-5.0) g/dL 05/04/18 05/04/18 Range/Units 04:30 07:13 RBC 2.40 L (3.80-5.40) m/uL Hgb 7.2 L (11.4-16.0) gm/dL Hct 21.3 L (34.0-46.0) % Plt Count 125 L (150-450) k/uL Sodium (137-145) mmol/L Glucose (74-99) mg/dL POC Glucose (mg/dL) 133 H (75-99) mg/dL Calcium (8.4-10.2) mg/dL AST (14-36) U/L Total Protein (6.3-8.2) g/dL Albumin (3.5-5.0) g/dL - Imaging and Cardiology Chest x-ray: report reviewed, image reviewed Assessment and Plan (1) Hyperlipidemia Current Visit: Yes Status: Acute Code(s): E78.5 - HYPERLIPIDEMIA, UNSPECIFIED SNOMED Code(s): 25597429 (2) COPD (chronic obstructive pulmonary disease) Current Visit: Yes Status: Chronic Code(s): J44.9 - CHRONIC OBSTRUCTIVE PULMONARY DISEASE, UNSPECIFIED SNOMED Code(s): 53530293 (3) HTN (hypertension) Current Visit: Yes Status: Chronic Code(s): I10 - ESSENTIAL (PRIMARY) HYPERTENSION SNOMED Code(s): 76522821 (4) History of anemia Current Visit: Yes Status: Chronic Code(s): Z86.2 - PRSNL HISTORY OF DIS OF THE BLD/BLD-FORM ORG/IMMUN [facility] SNOMED Code(s): 008622484 (5) Left bundle branch block Current Visit: Yes Status: Chronic Code(s): I44.7 - LEFT BUNDLE-BRANCH BLOCK , UNSPECIFIED SNOMED Code(s): 92407755 (6) Obstructive sleep apnea Current Visit: Yes Status: Chronic Code(s): G47.33 - OBSTRUCTIVE SLEEP APNEA (ADULT) (PEDIATRIC) SNOMED Code(s): 23760713 (7) Rheumatoid arthritis Current Visit: Yes Status: Chronic Code(s): M06.9 - RHEUMATOID ARTHRITIS, UNSPECIFIED SNOMED Code(s): 30471909 (8) Severe mitral valve regurgitation Current Visit: No Status: Acute Code(s): I34.0 - NONRHEUMATIC MITRAL (VALVE ) INSUFFICIENCY SNOMED Code(s): 39652418 (9) Chronic anticoagulation Current Visit: No Status: Chronic Code(s): Z79.01 - FPC (CURRENT) USE OF ANTICOAGULANTS SNOMED Code(s): 121296818 (10) History of upper gastrointestinal bleeding Current Visit: No Status: Chronic Code(s): Z87.19 - PERSONAL HISTORY OF OTHER DISEASES OF THE DIGESTIVE SYSTEM SNOMED Code(s): 782672119 (11) Paroxysmal a-fib Current Visit: No Status: Resolved Code(s): I48.0 - PAROXYSMAL ATRIAL FIBRILLATION SNOMED Code(s): 408418415 Plan: 1. Continue aspirin, statin, subcu heparin and beta miguel angel. We will increase beta miguel angel therapy as tolerated. Continue to hold flecainide at this time. 2. Wean O2 as tolerated. Encourage incentive spirometry use 10 times every hour while awake. 3. Increase activity, ambulate as tolerated. PT/OT/cardiac rehab following. 4. Continue Lasix 20 mg IV push every 8 hours. Replace electrolytes per protocol. 5. Will monitor daily labs and x-rays. 6. Bronchodilators management per pulmonology. 7. Discontinue Cordis and left radial arterial line. 8. Pain control with current medication regimen. 9. Insulin drip per primary care service. 10. GI prophylaxis with Protonix, DVT prophylaxis with subcu heparin and SCDs. 11. Medical management of other comorbidities per primary care service. 12. Replace magnesium per protocol. 13. We will restart the patient's home dose of ferrous sulfate 325 mg by mouth twice a day due to history of anemia. 14. We will remove her mediastinal chest tube, keep her left pleural chest tube in place to low continuous wall suction. 15. The patient will be transferred to [address] [place] [address] today when a bed is available. 16. More recommendations to follow based on patient's clinical course. Time with Patient: Greater than 30
--- NOTE | 2018-05-04 15:27 | PN ---
PROGRESS NOTE DATE OF SERVICE: 05/04/2018 This 63-year-old woman who was admitted after mitral valve annuloplasty for mitral regurgitation also had paroxysmal atrial fibrillation. The patient is being closely monitored. No chest pain. No palpitations. No fever. On exam, alert and oriented x3. Pulse is 66, blood pressure 113/55, respirations 13, temperature normal, pulse ox 98% on 2 L. HEENT: Conjunctivae normal. Oral mucosa moist. NECK: No jugular venous distention. No carotid bruit. No lymph node enlargement. CARDIOVASCULAR SYSTEM: S1, S2 muffled. Status post surgery. RESPIRATORY SYSTEM: Breath sounds diminished at the bases. A few scattered rhonchi. ABDOMEN: Soft, non-tender. NERVOUS SYSTEM: No focal deficit. LABS: Hemoglobin is 7.2, albumin 2.7. ASSESSMENT: 1. Status post mitral valve annuloplasty for mitral regurgitation and paroxysmal atrial fibrillation. 2. History of gastrointestinal bleed. 3. Hypertension. 4. History of rheumatoid arthritis. 5. History of sleep apnea. 6. History of recent antral ulcer and anemia. 7. History of cardiac catheterization. 8. History of degenerative joint disease. 9. Obesity with body mass index of 41. RECOMMENDATIONS AND DISCUSSION: I recommend to continue current medication, continue with monitoring, symptomatic treatment. Otherwise at this time I would recommend incentive spirometry. Closely follow with multiple consultants. Repeat labs. Further recommendations to follow. Repeat hemoglobin. MMODL / IJN: [id number] /
[2018-05-04 17:50] LABS: Glucose,Whole Blood 136 mg/dL (75-99)
--- NOTE | 2018-05-04 17:59 | P.PN ---
Subjective Progress Note Date: 05/04/18 This is a 63-year-old female status post mitral valve annuloplasty and modified maze procedure, seems to be progressing well. Patient is sitting in the chair. She is off pressors. Denies any significant chest pain or shortness of breath. Hemodynamically stable. Chest x-ray seemed to be stable. Lungs do not show any evidence of rhonchi or wheezing. Heart is regular. She is maintaining sinus rhythm. Her hemoglobin is low at 7.2. Metabolic panel is normal Objective - Vital Signs Vital signs: Vital Signs Temp 98.3 F 05/04/18 08:00 Pulse 66 05/04/18 15:50 Resp 15 05/04/18 16:00 BP 113/55 05/04/18 11:00 Pulse Ox 98 05/04/18 11:00 Intake & Output 05/03/18 05/04/18 05/04/18 18:59 06:59 18:59 Intake Total 1844.220 396 337 Output Total 1220 865 445 Balance 624.220 -469 -108 Weight 111.7 kg 113.6 kg 113.6 kg Intake: IV 454 396 337 CO/CI 20 Lactated Ringers 1,000 ml 380 330 110 @ 20 mls/hr IV .Q24H [facility] Rx#:[id number] Magnesium Sulfate-D5w Pmx 200 1 gm In Dextrose/Water 1 100ml.bag @ 100 mls/hr IVPB Q1H [facility] Rx#: [id number] pressure bag 54 66 27 Intake, IV Titration 70.220 Amount Clevidipine Butyrate 25 50 mg In Empty Bag 1 bag @ 1 MG/HR 2 mls/hr IV .Q24H [facility] Rx#:[id number] Insulin Regular 100 unit 20.220 In Sodium Chloride 0.9% 100 ml @ Per Protocol IV .Q0M [facility] Rx#:[id number] Oral 1320 Output: Chest Tube Drainage 285 240 110 Chest Tube Left Pleural/ 285 240 110 Mediastinal Urine 935 625 335 Other: Voiding Method Indwelling Catheter Indwelling Catheter Indwelling Catheter ABP, PAP, CO, CI - Last Documented Arterial Blood Pressure 130/45 Pulmonary Artery Pressure 27/6 Cardiac Output 6.6 Cardiac Index 3.1 - Exam GENERAL EXAM: Patient is alert and oriented and doesn't appear to be in any acute distress HEENT: Normocephalic. Normal reaction of pupils, equal size, normal range of extraocular motion. No erythema or exudates in the throat. NECK: No masses, no nuchal rigidity. CHEST postsurgical LUNGS: Equal air entry with no crackles or wheeze. HEART: S1 and S2 normal w ABDOMEN: No hepatosplenomegaly, normal bowel sounds, no guarding or rigidity. SKIN: No rashes CENTRAL NERVOUS SYSTEM: No focal deficits. EXTREMITIES: No cyanosis, clubbing or edema. - Labs CBC & Chem 7: 05/04/18 04:30 05/04/18 04:30 Labs: Abnormal Lab Results - Last 24 Hours (Table) 05/03/18 05/04/18 05/04/18 Range/Units 20:44 04:30 04:30 RBC 2.40 L (3.80-5.40) m/uL Hgb 7.2 L (11.4-16.0) gm/dL Hct 21.3 L (34.0-46.0) % Plt Count 125 L (150-450) k/uL Sodium 135 L (137-145) mmol/L Glucose 117 H (74-99) mg/dL POC Glucose (mg/dL) 130 H (75-99) mg/dL Calcium 8.1 L (8.4-10.2) mg/dL AST 39 H (14-36) U/L Total Protein 5.0 L (6.3-8.2) g/dL Albumin 2.7 L (3.5-5.0) g/dL 05/04/18 05/04/18 05/04/18 Range/Units 07:13 12:00 17:48 RBC (3.80-5.40) m/uL Hgb (11.4-16.0) gm/dL Hct (34.0-46.0) % Plt Count (150-450) k/uL Sodium (137-145) mmol/L Glucose (74-99) mg/dL POC Glucose (mg/dL) 133 H 151 H 136 H (75-99) mg/dL Calcium (8.4-10.2) mg/dL AST (14-36) U/L Total Protein (6.3-8.2) g/dL Albumin (3.5-5.0) g/dL Assessment and Plan (1) Status post mitral valve repair Current Visit: Yes Status: Acute Code(s): Z98.890 - OTHER SPECIFIED POSTPROCEDURAL STATES SNOMED Code(s): 192923641 (2) Left bundle branch block Current Visit: Yes Status: Chronic Code(s): I44.7 - LEFT BUNDLE-BRANCH BLOCK , UNSPECIFIED SNOMED Code(s): 37001412 (3) Mitral valve regurgitation Current Visit: Yes Status: Chronic Code(s): I34.0 - NONRHEUMATIC MITRAL ( VALVE) INSUFFICIENCY SNOMED Code(s): 15223483 Plan: Continue current management. Incentive spirometry. Possible transfer to telemetry unit. Will follow
[2018-05-04] MEDS: FERROUS SULFATE 325 MG TAB PO SCH (18:26)
[2018-05-04] MEDS: SENNOSIDES-DOCUSATE SODIUM 1 EACH TAB PO SCH (21:29)
[2018-05-04 21:31] LABS: Glucose,Whole Blood 122 mg/dL (75-99)
[2018-05-05] MEDS: KETOROLAC 30 MG/ML 1 ML VIAL IVP SCH ×5 (00:14→23:54)
[2018-05-05] MEDS: FUROSEMIDE 10 MG/ML 2 ML VIAL IV SCH ×4 (00:19→23:54)
[2018-05-05] MEDS: METOPROLOL TARTRATE 12.5 MG TAB PO SCH ×3 (02:00→21:57)
[2018-05-05] MEDS: HYDROcodone/APAP 5-325MG 1 EACH TAB PO PRN ×3 (04:58→21:55)
[2018-05-05] MEDS: HEPARIN SODIUM,PORCINE 5,000 UNIT/ML 1 ML VIAL SQ SCH ×3 (05:55→21:57)
[2018-05-05 05:59] LABS: ALT 30 U/L (9-52); AST 34 U/L (14-36); Albumin 2.6 g/dL (3.5-5.0); Alkaline Phosphatase 48 U/L (38-126); Anion Gap 8 mmol/L; Blood Urea Nitrogen 15 mg/dL (7-17); Calcium 7.9 mg/dL (8.4-10.2); Carbon Dioxide 25 mmol/L (22-30); Chloride 106 mmol/L (98-107); Glucose 97 mg/dL (74-99); Potassium 4.9 mmol/L (3.5-5.1); Sodium 139 mmol/L (137-145); Total Bilirubin 0.4 mg/dL (0.2-1.3)
[2018-05-05 06:14] LABS: Basophils % (A) 0 %; Eosinophils # (A) 0.1 k/uL (0-0.7); Eosinophils % (A) 1 %; HCT 22.5 % (34.0-46.0); HGB 7.5 gm/dL (11.4-16.0); Lymphocytes # (A) 1.4 k/uL (1.0-4.8); Lymphocytes % (A) 19 %; MCH 29.3 pg (25.0-35.0); MCHC 33.1 g/dL (31.0-37.0); MCV 88.4 fL (80.0-100.0); Mean Platelet Volume 9.8; Monocytes # (A) 0.5 k/uL (0-1.0); Monocytes % (A) 6 %; Neutrophils # (A) 5.3 k/uL (1.3-7.7); Neutrophils % (A) 73 %; Platelet Count 128 k/uL (150-450); RBC 2.54 m/uL (3.80-5.40); RDW 14.5 % (11.5-15.5); WBC 7.3 k/uL (3.8-10.6)
--- NOTE | 2018-05-05 07:07 | XR ---
EXAMINATION TYPE: XR chest 1V portable DATE OF EXAM: 05/05/2018 HISTORY: Postoperative MVR. REFERENCE: Previous study dated 05/04/2018. FINDINGS: The heart is mildly enlarged. There is bibasilar airspace disease, worse on the left than t he right. There is vascular congestion without gil edema. I do suspect small effusions. IMPRESSION: FINDINGS CONSISTENT WITH VOLUME OVERLOAD.
[2018-05-05] MEDS: INSULIN ASPART 100 UNIT/ML 1 ML 10 ML VIAL SQ SCH ×4 (07:12→21:56)
[2018-05-05 07:13] LABS: Glucose,Whole Blood 126 mg/dL (75-99)
[2018-05-05] MEDS: IPRATROPIUM-ALBUTEROL 3 ML NEB INHALATION SCH ×4 (07:15→20:50)
[2018-05-05 07:31] LABS: Glucose,Whole Blood 121 mg/dL (75-99)
[2018-05-05] MEDS: FERROUS SULFATE 325 MG TAB PO SCH ×2 (07:56→17:19)
[2018-05-05] MEDS: ATORVASTATIN 40 MG TAB PO SCH (08:01)
[2018-05-05] MEDS: PANTOPRAZOLE 40 MG/10 ML VIAL IVP SCH ×2 (08:01→21:56)
[2018-05-05] MEDS: MUPIROCIN 2% OINT 22 GM TUBE NASAL SCH ×2 (08:01→22:17)
[2018-05-05] MEDS: ASPIRIN 325 MG TAB PO SCH (08:01)
--- NOTE | 2018-05-05 11:24 | P.PN ---
Subjective Progress Note Date: 05/05/18 Principal diagnosis: Severe mitral valve regurgitation. Paroxysmal atrial fibrillation on Xarelto for anticoagulation status post ablation and cardioversions. History of hypertension, hyperlipidemia, rheumatoid arthritis, obesity with a BMI of 40, obstructive sleep apnea with home CPAP use, moderate COPD with preoperative FEV1 52% of predicted, anemia, gastric ulcer, history of MRSA to her right arm, and preoperative nasal swab positive for MSSA. POD #3 mitral valve annuloplasty with 26 mm physio-2 ring, modified Mauricio maze procedure with a full left-sided lesion set including coronary sinus lesion and mitral annular attachment with cryo-probe as well as high lateral pulmonary vein ablation and proximal lesion with RF. Closure of the left atrial appendage. The patient is sitting up to the bedside chair. She is in no acute distress. She denies any complaints of pain or shortness of breath at this time. Her chest tubes were removed yesterday. Oxygen saturations are 94% on 2 L nasal cannula. She is achieving 1000 mL on her incentive spirometry with encouragement. She reports that she ambulated in the intensive care hallway today to the nurse's station and back to her room with minimal assistance. Objective - Vital Signs Vital signs: Vital Signs Temp 98.4 F 05/05/18 04:00 Pulse 68 05/05/18 07:25 Resp 16 05/05/18 07:00 BP 101/41 05/05/18 07:00 Pulse Ox 94 L 05/05/18 07:00 Intake & Output 05/04/18 05/05/18 05/05/18 18:59 06:59 18:59 Intake Total 406 250 Output Total 830 1085 40 Balance -424 -835 -40 Weight 113.6 kg 113.7 kg Intake: IV 406 Lactated Ringers 1,000 ml 170 @ 20 mls/hr IV .Q24H [facility] Rx#:[id number] Magnesium Sulfate-D5w Pmx 200 1 gm In Dextrose/Water 1 100ml.bag @ 100 mls/hr IVPB Q1H [facility] Rx#: [id number] pressure bag 36 Oral 250 Output: Chest Tube Drainage 110 Chest Tube Left Pleural/ 110 Mediastinal Urine 720 1085 40 Other: Voiding Method Indwelling Catheter Indwelling Catheter ABP, PAP, CO, CI - Last Documented Arterial Blood Pressure 130/45 Pulmonary Artery Pressure 27/6 Cardiac Output 6.6 Cardiac Index 3.1 - Constitutional General appearance: Present: cooperative, no acute distress, obese - Respiratory Details: Lung sounds are essentially clear throughout, few scattered crackles to her bilateral bases. Respirations are symmetrical and nonlabored. Oxygen saturation are 94% on 2 L nasal cannula. She is achieving 1000 mL on her incentive spirometry. - Cardiovascular Details: Regular rhythm and rate. S1 and S2 present, negative for S3, gallop or murmur. Sternum is stable. Bedside telemetry showing normal sinus rhythm with bundle branch block heart rate 76. Heart hugger is in place and she is demonstrating appropriate use. No edema present. Atrial and ventricular epicardial pacemaker wires in place and grounded. Knee-high FACUNDO hose and sequential compression devices in place to her bilateral lower extremities. - Gastrointestinal Gastrointestinal Comment(s): Abdomen is soft, nontender and nondistended. Active bowel sounds all 4 abdominal quadrants. Tolerating oral intake. Passing flatus. No bowel movement since surgery. - Genitourinary Genitourinary Comment(s): Galeas catheter for accurate I&O. Draining clear yellow urine. 645 mL output in the last 8 hours. - Integumentary Integumentary Comment(s): Skin is warm and dry. No clubbing or cyanosis present. Midline sternal incision clean, dry and approximated. No drainage or redness present. Gauze dressing clean, dry and intact. No rash or abnormal pigmentation is present. - Neurologic Neurologic Comment(s): No focal deficits. Neurologic: Present: CNII-XII intact - Musculoskeletal Musculoskeletal: Present: gait normal, generalized weakness, strength equal bilaterally - Psychiatric Psychiatric: Present: A&O x's 3, appropriate affect, intact judgment & insight - Allied health notes Allied health notes reviewed: nursing - Labs CBC & Chem 7: 05/05/18 04:48 05/05/18 04:48 Labs: Abnormal Lab Results - Last 24 Hours (Table) 05/04/18 05/04/18 05/04/18 Range/Units 12:00 17:48 21:28 RBC (3.80-5.40) m/uL Hgb (11.4-16.0) gm/dL Hct (34.0-46.0) % Plt Count (150-450) k/uL POC Glucose (mg/dL) 151 H 136 H 122 H (75-99) mg/dL Calcium (8.4-10.2) mg/dL Total Protein (6.3-8.2) g/dL Albumin (3.5-5.0) g/dL 05/05/18 05/05/18 05/05/18 Range/Units 04:48 04:48 07:11 RBC 2.54 L (3.80-5.40) m/uL Hgb 7.5 L (11.4-16.0) gm/dL Hct 22.5 L (34.0-46.0) % Plt Count 128 L (150-450) k/uL POC Glucose (mg/dL) 126 H (75-99) mg/dL Calcium 7.9 L (8.4-10.2) mg/dL Total Protein 5.0 L (6.3-8.2) g/dL Albumin 2.6 L (3.5-5.0) g/dL 05/05/18 Range/Units 07:30 RBC (3.80-5.40) m/uL Hgb (11.4-16.0) gm/dL Hct (34.0-46.0) % Plt Count (150-450) k/uL POC Glucose (mg/dL) 121 H (75-99) mg/dL Calcium (8.4-10.2) mg/dL Total Protein (6.3-8.2) g/dL Albumin (3.5-5.0) g/dL - Imaging and Cardiology Chest x-ray: report reviewed, image reviewed Assessment and Plan (1) Hyperlipidemia Current Visit: Yes Status: Acute Code(s): E78.5 - HYPERLIPIDEMIA, UNSPECIFIED SNOMED Code(s): 90173798 (2) COPD (chronic obstructive pulmonary disease) Current Visit: Yes Status: Chronic Code(s): J44.9 - CHRONIC OBSTRUCTIVE PULMONARY DISEASE, UNSPECIFIED SNOMED Code(s): 52303228 (3) HTN (hypertension) Current Visit: Yes Status: Chronic Code(s): I10 - ESSENTIAL (PRIMARY) HYPERTENSION SNOMED Code(s): 23681156 (4) History of anemia Current Visit: Yes Status: Chronic Code(s): Z86.2 - PRSNL HISTORY OF DIS OF THE BLD/BLD-FORM ORG/[facility] SNOMED Code(s): 316223629 (5) Left bundle branch block Current Visit: Yes Status: Chronic Code(s): I44.7 - LEFT BUNDLE-BRANCH BLOCK , UNSPECIFIED SNOMED Code(s): 39811949 (6) Obstructive sleep apnea Current Visit: Yes Status: Chronic Code(s): G47.33 - OBSTRUCTIVE SLEEP APNEA (ADULT) (PEDIATRIC) SNOMED Code(s): 96656274 (7) Rheumatoid arthritis Current Visit: Yes Status: Chronic Code(s): M06.9 - RHEUMATOID ARTHRITIS, UNSPECIFIED SNOMED Code(s): 03195275 (8) Severe mitral valve regurgitation Current Visit: No Status: Acute Code(s): I34.0 - NONRHEUMATIC MITRAL (VALVE ) INSUFFICIENCY SNOMED Code(s): 23307572 (9) Chronic anticoagulation Current Visit: No Status: Chronic Code(s): Z79.01 - REINFORCING STEEL PLACER (CURRENT) USE OF ANTICOAGULANTS SNOMED Code(s): 052863807 (10) History of upper gastrointestinal bleeding Current Visit: No Status: Chronic Code(s): Z87.19 - PERSONAL HISTORY OF OTHER DISEASES OF THE DIGESTIVE SYSTEM SNOMED Code(s): 069975493 (11) Paroxysmal a-fib Current Visit: No Status: Resolved Code(s): I48.0 - PAROXYSMAL ATRIAL FIBRILLATION SNOMED Code(s): 395805401 Plan: 1. Continue aspirin, statin, subcu heparin and beta miguel angel. We will increase beta miguel angel therapy as tolerated. Continue to hold flecainide at this time. 2. Wean O2 as tolerated. Encourage incentive spirometry use 10 times every hour while awake. 3. Increase activity, ambulate as tolerated. PT/OT/cardiac rehab following. 4. Continue Lasix 20 mg IV push every 8 hours. Replace electrolytes per protocol. 5. Will monitor daily labs and x-rays. 6. Bronchodilators management per pulmonology. 7. Discontinue Galeas catheter. 8. Pain control with current medication regimen. 9. Insulin drip per primary care service. 10. GI prophylaxis with Protonix, DVT prophylaxis with subcu heparin and SCDs. 11. Medical management of other comorbidities per primary care service. 12. Continue ferrous sulfate 325 mg by mouth twice a day due to history of anemia. 13. The patient will be transferred to [address] [place] [address] when a bed is available. 14. More recommendations to follow based on patient's clinical course. Time with Patient: Greater than 30
--- NOTE | 2018-05-05 11:50 | P.PN ---
Subjective Progress Note Date: 05/05/18 Principal diagnosis: Status post mitral valve annuloplasty, postoperative day #3 This is a 63-year-old female whom I saw on consultation yesterday, patient is postoperative day #1, mitral valve annuloplasty with 26 mm physio2 ring, modified Mauricio maze procedure bilateral pulmonary vein ablation and proximal lesion with RF. Patient has multiple medical problems which were listed in my consultation, she was extubated around 21:30 PM. Tolerated the extubation well , presently sitting in a bedside chair, in no form of respiratory distress. No specific complaints. She is hemodynamically stable, not requiring any pressors or inotropes. Chest x-ray is reassuring. Reevaluated today on 05/04/2018, patient is postoperative day #2. Overall the patient is doing great, chest x-ray is showing some left lower lobe atelectasis and small left pleural effusion. However patient is asymptomatic, denies any shortness of breath, no cough, no wheezing. Labs were reviewed she had a relatively normal basic metabolic profile, normal CBC hemoglobin is 7.2 however. Reevaluated today on 05/05/2018, patient is postoperative day #3. Continues to do well, chest x-ray continues to show some left basilar atelectasis, patient remains relatively asymptomatic. Denies any shortness of breath, no cough, no wheezing, her chest tubes were removed yesterday. O2 saturation is 94% on 2 L nasal cannula. Achieving about 1000 mL via incentive spirometry. Objective - Vital Signs Vital signs: Vital Signs Temp 98.3 F 05/05/18 08:00 Pulse 74 05/05/18 11:28 Resp 26 H 05/05/18 11:03 BP 95/47 05/05/18 08:00 Pulse Ox 99 05/05/18 08:00 Intake & Output 05/04/18 05/05/18 05/05/18 18:59 06:59 18:59 Intake Total 406 250 500 Output Total 830 1085 480 Balance -424 -835 20 Weight 113.6 kg 113.7 kg 113.7 kg Intake: IV 406 0 Lactated Ringers 1,000 ml 170 0 @ 20 mls/hr IV .Q24H [facility] Rx#:[id number] Magnesium Sulfate-D5w Pmx 200 1 gm In Dextrose/Water 1 100ml.bag @ 100 mls/hr IVPB Q1H [facility] Rx#: [id number] pressure bag 36 Oral 250 500 Output: Chest Tube Drainage 110 Chest Tube Left Pleural/ 110 Mediastinal Urine 720 1085 480 Other: Voiding Method Indwelling Catheter Indwelling Catheter Bedside Commode ABP, PAP, CO, CI - Last Documented Arterial Blood Pressure 130/45 Pulmonary Artery Pressure 27/6 Cardiac Output 6.6 Cardiac Index 3.1 - Exam Physical Exam: Revealed a 63-year-old female in no distress. Head: Atraumatic, normocephalic. HEENT:[Neck is supple.] [No neck masses.] [No thyromegaly.] [No JVD.] Chest: Diminished breath sounds and dullness at the left base, right side is clear. Cardiac Exam: [Normal S1 and S2, no S3 gallop, no murmur.] Abdomen: [Soft, nontender, no megaly, no rebound, no guarding, normal bowel sounds.] Extremities: [No clubbing, no edema, no cyanosis.] Neurological Exam: [No focal neurologic deficit.] Psychiatric: Normal mood, affect and mental status examination. Lymphatics: No lymphadenopathy. - Labs CBC & Chem 7: 05/05/18 04:48 05/05/18 04:48 Labs: Abnormal Lab Results - Last 24 Hours (Table) 05/04/18 05/04/18 05/04/18 Range/Units 12:00 17:48 21:28 RBC (3.80-5.40) m/uL Hgb (11.4-16.0) gm/dL Hct (34.0-46.0) % Plt Count (150-450) k/uL POC Glucose (mg/dL) 151 H 136 H 122 H (75-99) mg/dL Calcium (8.4-10.2) mg/dL Total Protein (6.3-8.2) g/dL Albumin (3.5-5.0) g/dL 05/05/18 05/05/18 05/05/18 Range/Units 04:48 04:48 07:11 RBC 2.54 L (3.80-5.40) m/uL Hgb 7.5 L (11.4-16.0) gm/dL Hct 22.5 L (34.0-46.0) % Plt Count 128 L (150-450) k/uL POC Glucose (mg/dL) 126 H (75-99) mg/dL Calcium 7.9 L (8.4-10.2) mg/dL Total Protein 5.0 L (6.3-8.2) g/dL Albumin 2.6 L (3.5-5.0) g/dL 05/05/18 Range/Units 07:30 RBC (3.80-5.40) m/uL Hgb (11.4-16.0) gm/dL Hct (34.0-46.0) % Plt Count (150-450) k/uL POC Glucose (mg/dL) 121 H (75-99) mg/dL Calcium (8.4-10.2) mg/dL Total Protein (6.3-8.2) g/dL Albumin (3.5-5.0) g/dL Assessment and Plan Assessment: #1. Severe mitral regurgitation, status post mitral valve repair modified Maze , postoperative day #3 #2. Routine postoperative ventilator management, uneventful postoperative ventilatory management. #3. Postop blood loss anemia, and expected outcomes of surgery #4. History of atrial fibrillation, post-ablation #5. Rheumatoid arthritis #6. Hypertension #7. Recent hospitalization for pulmonary edema #8. Obstructive sleep apnea, on CPAP therapy #9. History of Liver lesion possibly hemangioma #10. History of GI bleeding, history of antral ulcer, presently stable. #11 postoperative atelectasis involving the left side, expected post surgery. We'll continue incentive spirometry. Recommendation: Continue incentive spirometry, continue bronchodilators, early ambulation, transfer out of the ICU today to a monitor bed on selective. We'll continue to follow. Time with Patient: Less than 30
[2018-05-05 12:14] LABS: Glucose,Whole Blood 141 mg/dL (75-99)
--- NOTE | 2018-05-05 12:19 | P.PN ---
Subjective Progress Note Date: 05/05/18 This is a pleasant 63-year-old female patient who is status post mitral valve repair with mitral valve annuloplasty and modified maze procedure. On follow-up with her today, she continues to have discomfort in the chest and the pain is the main issues. She continues to be tired as well. She has been maintaining normal sinus mechanism. Hemodynamically she is stable. Hemoglobin this morning is 7.5. The chest x-ray showed findings consistent with volume overload and the patient currently on IV Lasix. Objective - Vital Signs Vital signs: Vital Signs Temp 98.3 F 05/05/18 08:00 Pulse 74 05/05/18 11:28 Resp 26 H 05/05/18 11:03 BP 95/47 05/05/18 08:00 Pulse Ox 99 05/05/18 08:00 Intake & Output 05/04/18 05/05/18 05/05/18 18:59 06:59 18:59 Intake Total 406 250 500 Output Total 830 1085 480 Balance -424 -835 20 Weight 113.6 kg 113.7 kg 113.7 kg Intake: IV 406 0 Lactated Ringers 1,000 ml 170 0 @ 20 mls/hr IV .Q24H [facility] Rx#:[id number] Magnesium Sulfate-D5w Pmx 200 1 gm In Dextrose/Water 1 100ml.bag @ 100 mls/hr IVPB Q1H [facility] Rx#: [id number] pressure bag 36 Oral 250 500 Output: Chest Tube Drainage 110 Chest Tube Left Pleural/ 110 Mediastinal Urine 720 1085 480 Other: Voiding Method Indwelling Catheter Indwelling Catheter Bedside Commode ABP, PAP, CO, CI - Last Documented Arterial Blood Pressure 130/45 Pulmonary Artery Pressure 27/6 Cardiac Output 6.6 Cardiac Index 3.1 - Constitutional General appearance: Present: no acute distress - Respiratory Respiratory: bilateral: CTA - Cardiovascular Rhythm: regular Heart sounds: normal: S1, S2 - Labs CBC & Chem 7: 05/05/18 04:48 05/05/18 04:48 Labs: Abnormal Lab Results - Last 24 Hours (Table) 05/04/18 05/04/18 05/05/18 Range/Units 17:48 21:28 04:48 RBC (3.80-5.40) m/uL Hgb (11.4-16.0) gm/dL Hct (34.0-46.0) % Plt Count (150-450) k/uL POC Glucose (mg/dL) 136 H 122 H (75-99) mg/dL Calcium 7.9 L (8.4-10.2) mg/dL Total Protein 5.0 L (6.3-8.2) g/dL Albumin 2.6 L (3.5-5.0) g/dL 05/05/18 05/05/18 05/05/18 Range/Units 04:48 07:11 07:30 RBC 2.54 L (3.80-5.40) m/uL Hgb 7.5 L (11.4-16.0) gm/dL Hct 22.5 L (34.0-46.0) % Plt Count 128 L (150-450) k/uL POC Glucose (mg/dL) 126 H 121 H (75-99) mg/dL Calcium (8.4-10.2) mg/dL Total Protein (6.3-8.2) g/dL Albumin (3.5-5.0) g/dL 05/05/18 Range/Units 12:13 RBC (3.80-5.40) m/uL Hgb (11.4-16.0) gm/dL Hct (34.0-46.0) % Plt Count (150-450) k/uL POC Glucose (mg/dL) 141 H (75-99) mg/dL Calcium (8.4-10.2) mg/dL Total Protein (6.3-8.2) g/dL Albumin (3.5-5.0) g/dL Assessment and Plan Assessment: Assessment #1 status post mitral valve repair #2 volume overload Plan #1 continue the current medical regimen including Lasix IV #2 continue monitor the kidney function and electrolytes #3 continue monitor the hemoglobin #4 follow-up with the patient
[2018-05-05 17:40] LABS: Glucose,Whole Blood 128 mg/dL (75-99)
--- NOTE | 2018-05-05 21:02 | P.PN ---
Subjective this is a pleasant 63 yo F with pmh of who presents with Severe mitral regurgitation, status postmitral valve annuloplasty , pt today is lying in chair , pt denies to me chest pain , no dyspnea ,no change in urine or bowel habits. pt states she is generally weak. Objective - Vital Signs Vital signs: Vital Signs Temp 98.3 F 05/05/18 08:00 Pulse 74 05/05/18 11:28 Resp 26 H 05/05/18 11:03 BP 95/47 05/05/18 08:00 Pulse Ox 99 05/05/18 08:00 Intake & Output 05/04/18 05/05/18 05/05/18 18:59 06:59 18:59 Intake Total 406 250 500 Output Total 830 1085 480 Balance -424 -835 20 Weight 113.6 kg 113.7 kg 113.7 kg Intake: IV 406 0 Lactated Ringers 1,000 ml 170 0 @ 20 mls/hr IV .Q24H [facility] Rx#:[id number] Magnesium Sulfate-D5w Pmx 200 1 gm In Dextrose/Water 1 100ml.bag @ 100 mls/hr IVPB Q1H [facility] Rx#: [id number] pressure bag 36 Oral 250 500 Output: Chest Tube Drainage 110 Chest Tube Left Pleural/ 110 Mediastinal Urine 720 1085 480 Other: Voiding Method Indwelling Catheter Indwelling Catheter Bedside Commode ABP, PAP, CO, CI - Last Documented Arterial Blood Pressure 130/45 Pulmonary Artery Pressure 27/6 Cardiac Output 6.6 Cardiac Index 3.1 - Exam Physical exam -GENERAL: The patient is alert and oriented x3, not in any acute distress. Well developed, well nourished. however she is generally weak HEENT: Pupils are round and equally reacting to light. EOMI. No scleral icterus. No conjunctival pallor. Normocephalic, atraumatic. No pharyngeal erythema. No thyromegaly. CARDIOVASCULAR: S1 and S2 present. No murmurs, rubs, or gallops. PULMONARY: Chest is clear to auscultation, no wheezing or crackles. ABDOMEN: Soft, nontender, nondistended, normoactive bowel sounds. No palpable organomegaly. MUSCULOSKELETAL: No joint swelling or deformity. EXTREMITIES: No cyanosis, clubbing, or pedal edema. NEUROLOGICAL: Gross neurological examination did not reveal any focal deficits. SKIN: No rashes. - Labs CBC & Chem 7: 05/05/18 04:48 05/05/18 04:48 Labs: Abnormal Lab Results - Last 24 Hours (Table) 05/04/18 05/04/18 05/04/18 Range/Units 12:00 17:48 21:28 RBC (3.80-5.40) m/uL Hgb (11.4-16.0) gm/dL Hct (34.0-46.0) % Plt Count (150-450) k/uL POC Glucose (mg/dL) 151 H 136 H 122 H (75-99) mg/dL Calcium (8.4-10.2) mg/dL Total Protein (6.3-8.2) g/dL Albumin (3.5-5.0) g/dL 05/05/18 05/05/18 05/05/18 Range/Units 04:48 04:48 07:11 RBC 2.54 L (3.80-5.40) m/uL Hgb 7.5 L (11.4-16.0) gm/dL Hct 22.5 L (34.0-46.0) % Plt Count 128 L (150-450) k/uL POC Glucose (mg/dL) 126 H (75-99) mg/dL Calcium 7.9 L (8.4-10.2) mg/dL Total Protein 5.0 L (6.3-8.2) g/dL Albumin 2.6 L (3.5-5.0) g/dL 05/05/18 Range/Units 07:30 RBC (3.80-5.40) m/uL Hgb (11.4-16.0) gm/dL Hct (34.0-46.0) % Plt Count (150-450) k/uL POC Glucose (mg/dL) 121 H (75-99) mg/dL Calcium (8.4-10.2) mg/dL Total Protein (6.3-8.2) g/dL Albumin (3.5-5.0) g/dL Assessment and Plan Assessment: Status post mitral valve annuloplasty for mitral regurgitation with paroxysmal atrial fibrillation History of GI bleed Essential hypertension History of rheumatoid arthritis History of sleep apnea History of recent antral ulcer and anemia Surgery of coronary artery disease status post cardiac cath Obesity with body mass index of 41 Plan: Recommend to continue with same treatment. Continue with symptomatic treatment. Monitor lytes and vitals. Recommend use of incentive spirometry. Closely follow up with multiple consultants. GI and DVT prophylaxis. Further recommendations based on the clinical course of the patient. Prognosis is guarded
[2018-05-05 21:45] LABS: Glucose,Whole Blood 136 mg/dL (75-99)
[2018-05-05] MEDS: SENNOSIDES-DOCUSATE SODIUM 1 EACH TAB PO SCH (21:56)
[2018-05-06 02:09] LABS: Glucose,Whole Blood 137 mg/dL (75-99)
[2018-05-06] MEDS: HYDROcodone/APAP 5-325MG 1 EACH TAB PO PRN ×4 (05:29→20:49)
[2018-05-06 05:45] LABS: Glucose,Whole Blood 118 mg/dL (75-99)
[2018-05-06 06:00] LABS: Basophils % (A) 0 %; Eosinophils % (A) 0 %; HCT 22.3 % (34.0-46.0); HGB 7.3 gm/dL (11.4-16.0); Lymphocytes # (A) 1.1 k/uL (1.0-4.8); Lymphocytes % (A) 19 %; MCH 28.6 pg (25.0-35.0); MCHC 32.7 g/dL (31.0-37.0); MCV 87.7 fL (80.0-100.0); Mean Platelet Volume 7.9; Monocytes # (A) 0.3 k/uL (0-1.0); Monocytes % (A) 4 %; Neutrophils # (A) 4.3 k/uL (1.3-7.7); Neutrophils % (A) 74 %; Platelet Count 179 k/uL (150-450); RBC 2.55 m/uL (3.80-5.40); RDW 14.3 % (11.5-15.5); WBC 5.8 k/uL (3.8-10.6)
[2018-05-06] MEDS: INSULIN ASPART 100 UNIT/ML 1 ML 10 ML VIAL SQ SCH ×4 (06:09→23:03)
[2018-05-06 06:11] LABS: ALT 51 U/L (9-52); AST 58 U/L (14-36); Albumin 2.8 g/dL (3.5-5.0); Alkaline Phosphatase 60 U/L (38-126); Anion Gap 7 mmol/L; Blood Urea Nitrogen 13 mg/dL (7-17); Carbon Dioxide 28 mmol/L (22-30); Chloride 99 mmol/L (98-107); Glucose 110 mg/dL (74-99); Potassium 3.6 mmol/L (3.5-5.1); Sodium 134 mmol/L (137-145); Total Bilirubin 0.4 mg/dL (0.2-1.3); Total Protein 5.3 g/dL (6.3-8.2)
--- NOTE | 2018-05-06 06:31 | XR ---
EXAMINATION TYPE: XR chest 2V DATE OF EXAM: 05/06/2018 HISTORY: Post op MVR. REFERENCE: Previous study dated 05/05/2018. FINDINGS: There has been a midline sternotomy. The heart is mildly enlarged. There continues be vascular congestion although this has improved. Ther e is bibasilar airspace disease. There are bilateral effusions. IMPRESSION: SLIGHT IMPROVEMENT IN THE DEGREE OF VOLUME OVERLOAD.
[2018-05-06] MEDS: IPRATROPIUM-ALBUTEROL 3 ML NEB INHALATION SCH ×4 (06:39→20:47)
[2018-05-06] MEDS: KETOROLAC 30 MG/ML 1 ML VIAL IVP SCH ×4 (06:41→23:03)
[2018-05-06] MEDS: HEPARIN SODIUM,PORCINE 5,000 UNIT/ML 1 ML VIAL SQ SCH ×3 (06:41→20:49)
--- NOTE | 2018-05-06 07:02 | P.PN ---
Subjective Progress Note Date: 05/06/18 This is a pleasant 63-year-old female patient who is status post mitral valve repair with mitral valve annuloplasty and modified maze procedure. On follow-up with her today, she continues to have discomfort in the chest and the pain is the main issues. She continues to be tired as well. She has been maintaining normal sinus mechanism. Beside that the patient looks erythematous to me. Objective - Vital Signs Vital signs: Vital Signs Temp 99.1 F 05/06/18 04:00 Pulse 74 05/06/18 06:49 Resp 18 05/06/18 04:00 BP 124/58 05/06/18 04:00 Pulse Ox 99 05/06/18 04:00 Intake & Output 05/05/18 05/06/18 05/06/18 18:59 06:59 18:59 Intake Total 870 Output Total 830 500 Balance 40 -500 Weight 109.5 kg 111.9 kg Intake: IV 0 Lactated Ringers 1,000 ml 0 @ 20 mls/hr IV .Q24H [facility] Rx#:[id number] Oral 870 Output: Urine 830 500 Other: Voiding Method Bedside Commode Toilet ABP, PAP, CO, CI - Last Documented Arterial Blood Pressure 130/45 Pulmonary Artery Pressure 27/6 Cardiac Output 6.6 Cardiac Index 3.1 - Constitutional General appearance: Present: no acute distress - Respiratory Respiratory: bilateral: CTA - Cardiovascular Rhythm: regular Heart sounds: normal: S1, S2 - Labs CBC & Chem 7: 05/06/18 05:37 05/06/18 05:37 Labs: Abnormal Lab Results - Last 24 Hours (Table) 05/05/18 05/05/18 05/05/18 Range/Units 07:11 07:30 12:13 RBC (3.80-5.40) m/uL Hgb (11.4-16.0) gm/dL Hct (34.0-46.0) % Sodium (137-145) mmol/L Glucose (74-99) mg/dL POC Glucose (mg/dL) 126 H 121 H 141 H (75-99) mg/dL Calcium (8.4-10.2) mg/dL AST (14-36) U/L Total Protein (6.3-8.2) g/dL Albumin (3.5-5.0) g/dL 05/05/18 05/05/18 05/06/18 Range/Units 17:39 21:43 02:06 RBC (3.80-5.40) m/uL Hgb (11.4-16.0) gm/dL Hct (34.0-46.0) % Sodium (137-145) mmol/L Glucose (74-99) mg/dL POC Glucose (mg/dL) 128 H 136 H 137 H (75-99) mg/dL Calcium (8.4-10.2) mg/dL AST (14-36) U/L Total Protein (6.3-8.2) g/dL Albumin (3.5-5.0) g/dL 05/06/18 05/06/18 05/06/18 Range/Units 05:37 05:37 05:43 RBC 2.55 L (3.80-5.40) m/uL Hgb 7.3 L (11.4-16.0) gm/dL Hct 22.3 L (34.0-46.0) % Sodium 134 L (137-145) mmol/L Glucose 110 H (74-99) mg/dL POC Glucose (mg/dL) 118 H (75-99) mg/dL Calcium 8.0 L (8.4-10.2) mg/dL AST 58 H (14-36) U/L Total Protein 5.3 L (6.3-8.2) g/dL Albumin 2.8 L (3.5-5.0) g/dL Assessment and Plan Assessment: Assessment #1 status post mitral valve repair #2 volume overload Plan #1 continue the current medical regimen including Lasix IV. I would suggest increase the dose of Lasix IV #2 continue monitor the kidney function and electrolytes #3 continue monitor the hemoglobin #4 follow-up with the patient
[2018-05-06] MEDS: ASPIRIN 325 MG TAB PO SCH (08:54)
[2018-05-06] MEDS: FERROUS SULFATE 325 MG TAB PO SCH ×3 (08:54→17:25)
[2018-05-06] MEDS: METOPROLOL TARTRATE 12.5 MG TAB PO SCH ×2 (08:54→20:48)
[2018-05-06] MEDS: ATORVASTATIN 40 MG TAB PO SCH (08:54)
[2018-05-06] MEDS: FUROSEMIDE 10 MG/ML 4 ML VIAL IV SCH ×2 (08:56→20:48)
--- NOTE | 2018-05-06 09:08 | P.PN ---
Subjective Progress Note Date: 05/06/18 Principal diagnosis: Severe mitral valve regurgitation. Paroxysmal atrial fibrillation on Xarelto for anticoagulation status post ablation and cardioversions. History of hypertension, hyperlipidemia, rheumatoid arthritis, obesity with a BMI of 40, obstructive sleep apnea with home CPAP use, moderate COPD with preoperative FEV1 52% of predicted, anemia, gastric ulcer, history of MRSA to her right arm, and preoperative nasal swab positive for MSSA. POD #4 mitral valve annuloplasty with 26 mm physio-2 ring, modified Mauricio maze procedure with a full left-sided lesion set including coronary sinus lesion and mitral annular attachment with cryo-probe as well as high lateral pulmonary vein ablation and proximal lesion with RF. Closure of the left atrial appendage. The patient is ambulating in the [facility] hallway with physical therapy. She is in no acute distress. She denies any complaints of pain although states she is somewhat short of breath with activity. Oxygen saturations are 96% on 2 L nasal cannula. She is achieving 1000 mL on her incentive spirometry with encouragement. She reports that her appetite could be better and that she is only tolerating about 20% of her meals. Objective - Vital Signs Vital signs: Vital Signs Temp 97.6 F 05/06/18 08:51 Pulse 85 05/06/18 08:51 Resp 18 05/06/18 08:51 BP 120/75 05/06/18 08:51 Pulse Ox 96 05/06/18 08:51 Intake & Output 05/05/18 05/06/18 05/06/18 18:59 06:59 18:59 Intake Total 870 240 Output Total 830 500 Balance 40 -500 240 Weight 109.5 kg 111.9 kg Intake: IV 0 Lactated Ringers 1,000 ml 0 @ 20 mls/hr IV .Q24H [facility] Rx#:[id number] Oral 870 240 Output: Urine 830 500 Other: Voiding Method Bedside Commode Toilet ABP, PAP, CO, CI - Last Documented Arterial Blood Pressure 130/45 Pulmonary Artery Pressure 27/6 Cardiac Output 6.6 Cardiac Index 3.1 - Constitutional General appearance: Present: cooperative, no acute distress, obese - Respiratory Details: Lung sounds are essentially clear throughout, diminished to her bilateral bases. Respirations are symmetrical and nonlabored. Oxygen saturation are 96% on 2 L nasal cannula. She is achieving 1000 mL on her incentive spirometry. - Cardiovascular Details: Regular rhythm and rate. S1 and S2 present, negative for S3, gallop or murmur. Sternum is stable. Remote telemetry showing normal sinus rhythm heart rate 79. Heart hugger's in place and she is demonstrating appropriate use. No edema present. Knee-high FACUNDO hose and sequential compression devices in place to bilateral lower extremities. Atrial and ventricular epicardial pacemaker wires in place and grounded. - Gastrointestinal Gastrointestinal Comment(s): Abdomen a soft, nontender and nondistended. Active bowel sounds to all 4 abdominal quadrants. Tolerating oral intake. Passing flatus. - Genitourinary Genitourinary Comment(s): Voiding clear yellow urine. 500 mL output the last 8 hours. - Integumentary Integumentary Comment(s): Skin is warm and dry. No clubbing or cyanosis present. Midline sternal incision clean, dry and approximated. No drainage or redness present. Gauze dressing to midline sternal incision clean, dry and intact. No rash or abnormal pigmentation is present. - Neurologic Neurologic: Present: CNII-XII intact - Musculoskeletal Musculoskeletal: Present: gait normal, strength equal bilaterally - Psychiatric Psychiatric: Present: A&O x's 3, appropriate affect, intact judgment & insight - Allied health notes Allied health notes reviewed: nursing - Labs CBC & Chem 7: 05/06/18 05:37 05/06/18 05:37 Labs: Abnormal Lab Results - Last 24 Hours (Table) 05/05/18 05/05/18 05/05/18 Range/Units 12:13 17:39 21:43 RBC (3.80-5.40) m/uL Hgb (11.4-16.0) gm/dL Hct (34.0-46.0) % Sodium (137-145) mmol/L Glucose (74-99) mg/dL POC Glucose (mg/dL) 141 H 128 H 136 H (75-99) mg/dL Calcium (8.4-10.2) mg/dL AST (14-36) U/L Total Protein (6.3-8.2) g/dL Albumin (3.5-5.0) g/dL 05/06/18 05/06/18 05/06/18 Range/Units 02:06 05:37 05:37 RBC 2.55 L (3.80-5.40) m/uL Hgb 7.3 L (11.4-16.0) gm/dL Hct 22.3 L (34.0-46.0) % Sodium 134 L (137-145) mmol/L Glucose 110 H (74-99) mg/dL POC Glucose (mg/dL) 137 H (75-99) mg/dL Calcium 8.0 L (8.4-10.2) mg/dL AST 58 H (14-36) U/L Total Protein 5.3 L (6.3-8.2) g/dL Albumin 2.8 L (3.5-5.0) g/dL 05/06/18 Range/Units 05:43 RBC (3.80-5.40) m/uL Hgb (11.4-16.0) gm/dL Hct (34.0-46.0) % Sodium (137-145) mmol/L Glucose (74-99) mg/dL POC Glucose (mg/dL) 118 H (75-99) mg/dL Calcium (8.4-10.2) mg/dL AST (14-36) U/L Total Protein (6.3-8.2) g/dL Albumin (3.5-5.0) g/dL - Imaging and Cardiology Chest x-ray: report reviewed, image reviewed Assessment and Plan (1) Hyperlipidemia Current Visit: Yes Status: Acute Code(s): E78.5 - HYPERLIPIDEMIA, UNSPECIFIED SNOMED Code(s): 62740804 (2) COPD (chronic obstructive pulmonary disease) Current Visit: Yes Status: Chronic Code(s): J44.9 - CHRONIC OBSTRUCTIVE PULMONARY DISEASE, UNSPECIFIED SNOMED Code(s): 56168812 (3) HTN (hypertension) Current Visit: Yes Status: Chronic Code(s): I10 - ESSENTIAL (PRIMARY) HYPERTENSION SNOMED Code(s): 57009478 (4) History of anemia Current Visit: Yes Status: Chronic Code(s): Z86.2 - PRSNL HISTORY OF DIS OF THE BLD/BLD-FORM ORG/IMMUN [facility] SNOMED Code(s): 761697600 (5) Left bundle branch block Current Visit: Yes Status: Chronic Code(s): I44.7 - LEFT BUNDLE-BRANCH BLOCK , UNSPECIFIED SNOMED Code(s): 90996490 (6) Obstructive sleep apnea Current Visit: Yes Status: Chronic Code(s): G47.33 - OBSTRUCTIVE SLEEP APNEA (ADULT) (PEDIATRIC) SNOMED Code(s): 52872084 (7) Rheumatoid arthritis Current Visit: Yes Status: Chronic Code(s): M06.9 - RHEUMATOID ARTHRITIS, UNSPECIFIED SNOMED Code(s): 51436908 (8) Severe mitral valve regurgitation Current Visit: No Status: Acute Code(s): I34.0 - NONRHEUMATIC MITRAL (VALVE ) INSUFFICIENCY SNOMED Code(s): 24967683 (9) Chronic anticoagulation Current Visit: No Status: Chronic Code(s): Z79.01 - RESIDENTIAL (CURRENT) USE OF ANTICOAGULANTS SNOMED Code(s): 734745603 (10) History of upper gastrointestinal bleeding Current Visit: No Status: Chronic Code(s): Z87.19 - PERSONAL HISTORY OF OTHER DISEASES OF THE DIGESTIVE SYSTEM SNOMED Code(s): 458302514 (11) Paroxysmal a-fib Current Visit: No Status: Resolved Code(s): I48.0 - PAROXYSMAL ATRIAL FIBRILLATION SNOMED Code(s): 669183938 Plan: 1. Continue aspirin, statin, subcu heparin and beta miguel angel. We will increase beta miguel angel therapy as tolerated. Continue to hold flecainide at this time. 2. Wean O2 as tolerated. Encourage incentive spirometry use 10 times every hour while awake. 3. Increase activity, ambulate as tolerated. PT/OT/cardiac rehab following. 4. Increase Lasix to 40 mg IV push twice a day. Replace electrolytes per protocol. 5. Will monitor daily labs and x-rays. 6. Bronchodilators management per pulmonology. 7. Medical management and a blood sugar management per primary care service. 8. Pain control with current medication regimen. 9. GI prophylaxis with Protonix, DVT prophylaxis with subcu heparin and SCDs. 10. Continue ferrous sulfate 325 mg by mouth twice a day due to history of anemia. 11. More recommendations to follow based on patient's clinical course. 12. Consult Dr. Trevino for possible inpatient rehab placement upon discharge. Time with Patient: Greater than 30
--- NOTE | 2018-05-06 11:16 | P.PN ---
Subjective Progress Note Date: 05/06/18 Principal diagnosis: Status post mitral valve annuloplasty, postoperative day #4 This is a 63-year-old female whom I saw on consultation yesterday, patient is postoperative day #1, mitral valve annuloplasty with 26 mm physio2 ring, modified Mauricio maze procedure bilateral pulmonary vein ablation and proximal lesion with RF. Patient has multiple medical problems which were listed in my consultation, she was extubated around 21:30 PM. Tolerated the extubation well , presently sitting in a bedside chair, in no form of respiratory distress. No specific complaints. She is hemodynamically stable, not requiring any pressors or inotropes. Chest x-ray is reassuring. Reevaluated today on 05/04/2018, patient is postoperative day #2. Overall the patient is doing great, chest x-ray is showing some left lower lobe atelectasis and small left pleural effusion. However patient is asymptomatic, denies any shortness of breath, no cough, no wheezing. Labs were reviewed she had a relatively normal basic metabolic profile, normal CBC hemoglobin is 7.2 however. Reevaluated today on 05/05/2018, patient is postoperative day #3. Continues to do well, chest x-ray continues to show some left basilar atelectasis, patient remains relatively asymptomatic. Denies any shortness of breath, no cough, no wheezing, her chest tubes were removed yesterday. O2 saturation is 94% on 2 L nasal cannula. Achieving about 1000 mL via incentive spirometry. Reevaluated today on 05/06/2018, postoperative day #4 patient is on selective care, continues to do relatively well, in no distress, denies any cough wheezing or shortness of breath, she does have some dyspnea on exertion. Ambulating in the hallway with assistance. Her O2 saturation is 96% on 2 L. Continues to do well with incentive spirometry, improving slowly but steadily. Objective - Vital Signs Vital signs: Vital Signs Temp 97.6 F 05/06/18 08:51 Pulse 82 05/06/18 09:59 Resp 20 05/06/18 09:59 BP 118/57 05/06/18 09:59 Pulse Ox 94 L 05/06/18 09:59 Intake & Output 05/05/18 05/06/18 05/06/18 18:59 06:59 18:59 Intake Total 870 240 Output Total 830 500 300 Balance 40 -500 -60 Weight 109.5 kg 111.9 kg Intake: IV 0 Lactated Ringers 1,000 ml 0 @ 20 mls/hr IV .Q24H [facility] Rx#:[id number] Oral 870 240 Output: Urine 830 500 300 Other: Voiding Method Bedside Commode Toilet ABP, PAP, CO, CI - Last Documented Arterial Blood Pressure 130/45 Pulmonary Artery Pressure 27/6 Cardiac Output 6.6 Cardiac Index 3.1 - Exam Physical Exam: Revealed a 63-year-old female, obese, not in any distress. Head: Atraumatic, normocephalic. HEENT:[Neck is supple.] [No neck masses.] [No thyromegaly.] [No JVD.] Chest: Diminished breath sounds bilaterally, no crackles, no rhonchi, no wheezes. Cardiac Exam: [Normal S1 and S2, no S3 gallop, no murmur.] Abdomen: [Obese, Soft, nontender, no megaly, no rebound, no guarding, normal bowel sounds.] Extremities: Knee high FACUNDO hose and sequential compression devices noted in place in both lower extremities. Neurological Exam: [No focal neurologic deficit.] Psychiatric: Blunt affect, normal mood, normal mental status exam. Lymphatics: No lymphadenopathy. - Labs CBC & Chem 7: 05/06/18 05:37 05/06/18 05:37 Labs: Abnormal Lab Results - Last 24 Hours (Table) 05/05/18 05/05/18 05/05/18 Range/Units 12:13 17:39 21:43 RBC (3.80-5.40) m/uL Hgb (11.4-16.0) gm/dL Hct (34.0-46.0) % Sodium (137-145) mmol/L Glucose (74-99) mg/dL POC Glucose (mg/dL) 141 H 128 H 136 H (75-99) mg/dL Calcium (8.4-10.2) mg/dL AST (14-36) U/L Total Protein (6.3-8.2) g/dL Albumin (3.5-5.0) g/dL 05/06/18 05/06/18 05/06/18 Range/Units 02:06 05:37 05:37 RBC 2.55 L (3.80-5.40) m/uL Hgb 7.3 L (11.4-16.0) gm/dL Hct 22.3 L (34.0-46.0) % Sodium 134 L (137-145) mmol/L Glucose 110 H (74-99) mg/dL POC Glucose (mg/dL) 137 H (75-99) mg/dL Calcium 8.0 L (8.4-10.2) mg/dL AST 58 H (14-36) U/L Total Protein 5.3 L (6.3-8.2) g/dL Albumin 2.8 L (3.5-5.0) g/dL 05/06/18 Range/Units 05:43 RBC (3.80-5.40) m/uL Hgb (11.4-16.0) gm/dL Hct (34.0-46.0) % Sodium (137-145) mmol/L Glucose (74-99) mg/dL POC Glucose (mg/dL) 118 H (75-99) mg/dL Calcium (8.4-10.2) mg/dL AST (14-36) U/L Total Protein (6.3-8.2) g/dL Albumin (3.5-5.0) g/dL Assessment and Plan Assessment: #1. Severe mitral regurgitation, status post mitral valve repair modified Maze , postoperative day #4 #2. Routine postoperative ventilator management, uneventful postoperative ventilatory management. #3. Postop blood loss anemia, and expected outcomes of surgery #4. History of atrial fibrillation, post-ablation #5. Rheumatoid arthritis #6. Hypertension #7. Recent hospitalization for pulmonary edema #8. Obstructive sleep apnea, on CPAP therapy #9. History of Liver lesion possibly hemangioma #10. History of GI bleeding, history of antral ulcer, presently stable. #11 postoperative atelectasis involving the left side, expected post surgery. Chest x-ray from 05/06/2018 was reviewed, basically is unchanged, continues to show some atelectasis and maybe a small pleural effusion on the left base. Recommendation: Continue incentive spirometry, ambulation, bronchodilators, we' ll continue to follow. Patient will likely benefit from referral to a rehab facility early next week. Time with Patient: Less than 30
[2018-05-06] MEDS ORDERED: IPRATROPIUM-ALBUTEROL 3 ML NEB ONE (11:48)
[2018-05-06 11:49] LABS: Glucose,Whole Blood 118 mg/dL (75-99)
[2018-05-06] MEDS ORDERED: PANTOPRAZOLE 40 MG/10 ML VIAL ONE (11:53)
--- NOTE | 2018-05-06 11:53 | P.PN ---
Subjective this is a pleasant 63 yo F with pmh of who presents with Severe mitral regurgitation, status postmitral valve annuloplasty , pt today is lying in chair , pt denies to me chest pain , no dyspnea ,no change in urine or bowel habits. pt states she is generally weak. 05/06/2018 Patient still with no dyspnea. No change in bowel habits. Cardiology team is following up the patient for chest pain. However patient still needed pain medication. Patient was seen walking the hallway with physical therapy team. She still feels generally weak. Patient might benefit from subacute rehab in the following days. Objective - Vital Signs Vital signs: Vital Signs Temp 97.6 F 05/06/18 08:51 Pulse 72 05/06/18 11:44 Resp 20 05/06/18 09:59 BP 118/57 05/06/18 09:59 Pulse Ox 94 L 05/06/18 09:59 Intake & Output 05/05/18 05/06/18 05/06/18 18:59 06:59 18:59 Intake Total 870 240 Output Total 830 500 300 Balance 40 -500 -60 Weight 109.5 kg 111.9 kg Intake: IV 0 Lactated Ringers 1,000 ml 0 @ 20 mls/hr IV .Q24H [facility] Rx#:[id number] Oral 870 240 Output: Urine 830 500 300 Other: Voiding Method Bedside Commode Toilet ABP, PAP, CO, CI - Last Documented Arterial Blood Pressure 130/45 Pulmonary Artery Pressure 27/6 Cardiac Output 6.6 Cardiac Index 3.1 - Exam Physical exam -GENERAL: The patient is alert and oriented x3, not in any acute distress. Well developed, well nourished. however she is generally weak HEENT: Pupils are round and equally reacting to light. EOMI. No scleral icterus. No conjunctival pallor. Normocephalic, atraumatic. No pharyngeal erythema. No thyromegaly. CARDIOVASCULAR: S1 and S2 present. No murmurs, rubs, or gallops. PULMONARY: Chest is clear to auscultation, no wheezing or crackles. ABDOMEN: Soft, nontender, nondistended, normoactive bowel sounds. No palpable organomegaly. MUSCULOSKELETAL: No joint swelling or deformity. EXTREMITIES: No cyanosis, clubbing, or pedal edema. NEUROLOGICAL: Gross neurological examination did not reveal any focal deficits. SKIN: No rashes. - Labs CBC & Chem 7: 05/06/18 05:37 05/06/18 05:37 Labs: Abnormal Lab Results - Last 24 Hours (Table) 05/05/18 05/05/18 05/05/18 Range/Units 12:13 17:39 21:43 RBC (3.80-5.40) m/uL Hgb (11.4-16.0) gm/dL Hct (34.0-46.0) % Sodium (137-145) mmol/L Glucose (74-99) mg/dL POC Glucose (mg/dL) 141 H 128 H 136 H (75-99) mg/dL Calcium (8.4-10.2) mg/dL AST (14-36) U/L Total Protein (6.3-8.2) g/dL Albumin (3.5-5.0) g/dL 05/06/18 05/06/18 05/06/18 Range/Units 02:06 05:37 05:37 RBC 2.55 L (3.80-5.40) m/uL Hgb 7.3 L (11.4-16.0) gm/dL Hct 22.3 L (34.0-46.0) % Sodium 134 L (137-145) mmol/L Glucose 110 H (74-99) mg/dL POC Glucose (mg/dL) 137 H (75-99) mg/dL Calcium 8.0 L (8.4-10.2) mg/dL AST 58 H (14-36) U/L Total Protein 5.3 L (6.3-8.2) g/dL Albumin 2.8 L (3.5-5.0) g/dL 05/06/18 Range/Units 05:43 RBC (3.80-5.40) m/uL Hgb (11.4-16.0) gm/dL Hct (34.0-46.0) % Sodium (137-145) mmol/L Glucose (74-99) mg/dL POC Glucose (mg/dL) 118 H (75-99) mg/dL Calcium (8.4-10.2) mg/dL AST (14-36) U/L Total Protein (6.3-8.2) g/dL Albumin (3.5-5.0) g/dL Assessment and Plan Assessment: Status post mitral valve annuloplasty for mitral regurgitation with paroxysmal atrial fibrillation Generalized weakness History of GI bleed Essential hypertension History of rheumatoid arthritis History of sleep apnea History of recent antral ulcer and anemia Surgery of coronary artery disease status post cardiac cath Obesity with body mass index of 41 Plan: Recommend to continue with same treatment. Continue with symptomatic treatment. Monitor lytes and vitals. Recommend use of incentive spirometry. Closely follow up with multiple consultants. GI and DVT prophylaxis. Further recommendations based on the clinical course of the patient. Prognosis is guarded Patient may benefit from subacute rehab
[2018-05-06] MEDS: PANTOPRAZOLE 40 MG/10 ML VIAL IVP SCH ×2 (12:36→20:48)
[2018-05-06 16:19] LABS: Glucose,Whole Blood 132 mg/dL (75-99)
[2018-05-06] MEDS: SENNOSIDES-DOCUSATE SODIUM 1 EACH TAB PO SCH (20:48)
[2018-05-06 22:51] LABS: Glucose,Whole Blood 143 mg/dL (75-99)
[2018-05-07] MEDS: HYDROcodone/APAP 5-325MG 1 EACH TAB PO PRN ×6 (03:11→23:15)
[2018-05-07 05:46] LABS: Glucose,Whole Blood 116 mg/dL (75-99)
[2018-05-07] MEDS: INSULIN ASPART 100 UNIT/ML 1 ML 10 ML VIAL SQ SCH ×4 (05:49→21:04)
[2018-05-07] MEDS: KETOROLAC 30 MG/ML 1 ML VIAL IVP SCH (06:11)
[2018-05-07] MEDS: FERROUS SULFATE 325 MG TAB PO SCH ×3 (06:11→17:14)
[2018-05-07] MEDS: HEPARIN SODIUM,PORCINE 5,000 UNIT/ML 1 ML VIAL SQ SCH ×3 (06:13→20:45)
--- NOTE | 2018-05-07 06:47 | P.CONS ---
History of Present Illness - Chief Complaint Cardiac debility - History of Present Illness I had the opportunity see patient for inpatient rehab consultation with regard to cardiac debility. She was admitted to [facility] May 02 with mitral stenosis. Underwent elective MVR, modified Mauricio with ablation for PAF. Seen by Dr. Elkins for ICU care. Chest x-rays followed for CHF, fluid overload. PT reports minimal moderate assistance functional mobility and gait 20 feet, hand- held. OT prescribed. Previous functional history as elicited from patient: 63-year-old right-handed white female who is lives in a first-floor of HER-2 floor home. Retired. They share the cooking. Patient independent with laundry and driving as well as now with sitdown shower. Denies assistive device. Has never smoked. Rare drink. Review of Systems Review of systems: ENT: Denies sneezes or discharge. Eyes: Denies discharge or photophobia. Cardiac: Some sternal discomfort. Pulmonary: Mild to moderate shortness of breath with congestion. Breast: Denies discharge or lumps. Gastrointestinal: Denies nausea, emesis, constipation, diarrhea. Genitourinary: Denies discharge or frequency. Musculoskeletal: Denies muscle or bone aches. Neurologic: Generalized weakness. Endocrine: Denies shakes or sweats. Oncology: Denies cancers. Dermatologic: Denies rash, itching, pruritus. ALLERGY/immunology: Denies sneezes, rashes. Past Medical History Past Medical History: Atrial Fibrillation, Chest Pain / Angina, Heart Failure, GI Bleed, Hypertension, Rheumatoid Arthritis (RA), Sleep Apnea/CPAP/BIPAP Additional Past Medical History / Comment(s): History of atrial fibrillation post-ablation and cardioversions, recent hospitalization for GI bleeds related to a antral ulcer, anemia secondary to GI bleed, vertigo, liver lesion probably a meningioma and the patient will be having an outpatient MRI at a later stage, not currently using CPAP History of Any Multi-Drug Resistant Organisms: MRSA Year Discovered:: 2002 MDRO Source:: lt arm Past Surgical History: Appendectomy, Section, Heart Catheterization, Hysterectomy, Joint Replacement, Orthopedic Surgery, Tubal Ligation Additional Past Surgical History / Comment(s): 7 KNEE SURGERIES= 0NE LEFT KNEE ARTHROSCOPY, and 5 RT KNEE ARTHROSCOPIES THEN TOTAL RT KNEE DONE & THEN TOTAL REVISION TO RT KNEE , PLACIDO. ACHILLES TENDON SURGERY- HAS SCREWS IN PLACIDO. HEELS, EYE SURGERY A CHILD(STRABISMUS), DENTAL IMPLANT BOTTOM LT., COLONOSCOPY, right shoulder sx x2 Past Anesthesia/Blood Transfusion Reactions: Previous Problems w/ Anesthesia, Family History of Problems w/ Anesthesia, Postoperative Nausea & Vomiting (PONV) Additional Past Anesthesia/Blood Transfusion Reaction / Comm: PT & HER MOTHER HAVE HX PONV Smoking Status: Never smoker - Past Family History Mother Family Medical History: Congestive Heart Failure (CHF), Diabetes Mellitus Additional Family Medical History / Comment(s): History of spinal stenosis, heavy smoker and IDDM. Mother at age 73yrs. Father Family Medical History: Diabetes Mellitus, Hypertension Additional Family Medical History / Comment(s): Heavy smoker, Father in his late 60's or early 70's. Medications and Allergies Home Medications Medication Instructions Recorded Confirmed Type Rivaroxaban [Xarelto] 20 mg PO HS 02/16/15 05/02/18 History Lisinopril [Zestril] 5 mg PO DAILY #30 tab 02/21/15 05/02/18 Rx Metoprolol Tartrate 25 mg PO BID #30 tab 08/21/17 05/02/18 Rx Flecainide Acetate [Tambocor] 100 mg PO Q12HR 11/20/17 05/02/18 History Ferrous Sulfate [Iron] 325 mg PO BID 04/24/18 05/02/18 History Furosemide [Lasix] 40 mg PO BID #0 04/26/18 05/02/18 Rx Potassium Chloride [Klor-Con 20] 20 meq PO BID #0 04/26/18 05/02/18 Rx Desenex 2% Cream 1 applic TOPICAL BID 04/27/18 05/02/18 History Omeprazole Magnesium [PriLOSEC OTC] 20 mg PO BID 04/27/18 05/02/18 History Mupirocin 2% Oint [Bactroban 2% 1 applic TOPICAL DIRECTED 05/01/18 05/02/18 History Oint] Allergies Allergy/AdvReac Type Severity Reaction Status Date / Time No Known Allergies Allergy Verified 05/02/18 15:29 Physical Exam Vitals: Vital Signs Temp Pulse Pulse Resp BP Pulse Ox 05/07/18 04:00 98.3 F 77 18 118/56 95 05/07/18 00:00 98.7 F 85 18 115/55 94 L 05/06/18 21:14 72 05/06/18 20:00 98.7 F 76 18 116/54 100 05/06/18 16:48 74 05/06/18 16:40 72 05/06/18 16:00 98 F 77 18 118/58 94 L 05/06/18 12:00 75 20 115/54 95 05/06/18 11:55 74 05/06/18 11:44 72 05/06/18 09:59 82 20 118/57 94 L 05/06/18 08:51 97.6 F 85 18 120/75 96 05/06/18 06:49 74 Intake and Output 05/06/18 05/06/18 05/07/18 14:59 22:59 06:59 Intake Total 480 240 Output Total 300 900 650 Balance 180 -660 -650 Intake: Oral 480 240 Output: Urine 300 900 650 Other: Voiding Method Toilet Toilet # Voids 3 Weight 109.6 kg Skin: Good color, texture, turgor. General: Overweight build and comfortable appearance. Head: Normocephalic, atraumatic. Eyes: Symmetric. Pupils equal round. Ears: Symmetric. Hearing within normal limits. Mouth: Clear. Neck: Supple. Carotid without bruit. Cardiac: Regular rate and rhythm. Chest clean and dressed. Wearing harness. Lungs: Clear anteriorly and posteriorly. Abdomen: Soft active nontender. Overweight. Extremities: Normal tone. Neurological: Mental status: Alert, cooperative, pleasant. Cranial nerves: Symmetric facial tone and trapezius. Motor: Active movement all 4 limbs. Sensation: Intact throughout. DTRs: Symmetric and equal throughout. Mobility: Receiving a.m. Sunshine did not attempt to sit or stand. Results CBC & Chem 7: 05/06/18 05:37 05/06/18 05:37 Labs: Abnormal Lab Results - Last 24 Hours (Table) 05/06/18 05/06/18 05/06/18 Range/Units 11:47 16:13 22:49 POC Glucose (mg/dL) 118 H 132 H 143 H (75-99) mg/dL 05/07/18 Range/Units 05:45 POC Glucose (mg/dL) 116 H (75-99) mg/dL Assessment and Plan (1) Mitral valve regurgitation Current Visit: Yes Status: Chronic Code(s): I34.0 - NONRHEUMATIC MITRAL ( VALVE) INSUFFICIENCY SNOMED Code(s): 89680067 Plan: Impression: 1. Cardiac debility. 2. Status post MVR, modified Mauricio with ablation. 3. Paroxysmal atrial fibrillation. 4. Hypertension. 5. CHF. 6. Sleep apnea. 7. Rheumatoid arthritis. 8. History of GI bleed. Comments and plan: At this time PT ongoing and OT prescribed. Follow therapies with yourself for possible need and benefit of inpatient rehab.
--- NOTE | 2018-05-07 07:30 | XR ---
EXAMINATION TYPE: XR chest 1V portable DATE OF EXAM: 05/07/2018 COMPARISON: Prior chest x-ray 05/06/2018 HISTORY: Status post mitral valve replacement TECHNIQUE: Single frontal view of the chest is obtained. FINDINGS: The heart is enlarged. Bibasilar densities present. No evident pneumothorax. Interstitium is increased. IMPRESSION: Interval development of basilar airspace disease versus atelectasis and possible associa angel effusion. Correlate to exclude pulmonary venous hypertension and interstitial edema. Cardiomegaly .
[2018-05-07 07:48] LABS: Basophils % (A) 0 %; Eosinophils % (A) 1 %; HCT 22.3 % (34.0-46.0); HGB 7.3 gm/dL (11.4-16.0); Lymphocytes # (A) 1.7 k/uL (1.0-4.8); Lymphocytes % (A) 27 %; MCHC 32.7 g/dL (31.0-37.0); MCV 88.6 fL (80.0-100.0); Mean Platelet Volume 8.4; Monocytes # (A) 0.5 k/uL (0-1.0); Monocytes % (A) 8 %; Neutrophils # (A) 3.9 k/uL (1.3-7.7); Neutrophils % (A) 62 %; Platelet Count 223 k/uL (150-450); RBC 2.51 m/uL (3.80-5.40); RDW 14.3 % (11.5-15.5); WBC 6.2 k/uL (3.8-10.6)
[2018-05-07 08:06] LABS: ALT 134 U/L (9-52); AST 149 U/L (14-36); Albumin 2.7 g/dL (3.5-5.0); Alkaline Phosphatase 63 U/L (38-126); Anion Gap 9 mmol/L; Blood Urea Nitrogen 10 mg/dL (7-17); Calcium 8.3 mg/dL (8.4-10.2); Carbon Dioxide 29 mmol/L (22-30); Chloride 99 mmol/L (98-107); Glucose 101 mg/dL (74-99); Potassium 3.5 mmol/L (3.5-5.1); Sodium 137 mmol/L (137-145); Total Bilirubin 0.4 mg/dL (0.2-1.3); Total Protein 5.3 g/dL (6.3-8.2)
[2018-05-07] MEDS: IPRATROPIUM-ALBUTEROL 3 ML NEB INHALATION SCH ×4 (08:35→21:11)
--- NOTE | 2018-05-07 08:56 | P.PN ---
Subjective Progress Note Date: 05/07/18 Principal diagnosis: Status post mitral valve repair This is a pleasant 63-year-old female patient who is status post mitral valve repair with mitral valve annuloplasty and modified maze procedure. On follow-up with the patient today, 05/07/2018, she continues to be tired and fatigued but she seems to be slightly better than yesterday. She was quite edematous yesterday and we did increase the dose of Lasix on her. The chest x- ray showed findings consistent with CHF. Objective - Vital Signs Vital signs: Vital Signs Temp 98.3 F 05/07/18 04:00 Pulse 76 05/07/18 08:47 Resp 18 05/07/18 04:00 BP 118/56 05/07/18 04:00 Pulse Ox 95 05/07/18 04:00 Intake & Output 05/06/18 05/07/18 05/07/18 18:59 06:59 18:59 Intake Total 720 240 Output Total 1000 850 Balance -280 -850 240 Weight 109.6 kg Intake: Oral 720 240 Output: Urine 1000 850 Other: Voiding Method Toilet # Voids 3 ABP, PAP, CO, CI - Last Documented Arterial Blood Pressure 130/45 Pulmonary Artery Pressure 27/6 Cardiac Output 6.6 Cardiac Index 3.1 - Constitutional General appearance: Present: no acute distress - Respiratory Respiratory: bilateral: diminished - Cardiovascular Rhythm: regular - Labs CBC & Chem 7: 05/07/18 07:04 05/07/18 07:04 Labs: Abnormal Lab Results - Last 24 Hours (Table) 05/06/18 05/06/18 05/06/18 Range/Units 11:47 16:13 22:49 RBC (3.80-5.40) m/uL Hgb (11.4-16.0) gm/dL Hct (34.0-46.0) % Glucose (74-99) mg/dL POC Glucose (mg/dL) 118 H 132 H 143 H (75-99) mg/dL Calcium (8.4-10.2) mg/dL AST (14-36) U/L ALT (9-52) U/L Total Protein (6.3-8.2) g/dL Albumin (3.5-5.0) g/dL 05/07/18 05/07/18 05/07/18 Range/Units 05:45 07:04 07:04 RBC 2.51 L (3.80-5.40) m/uL Hgb 7.3 L (11.4-16.0) gm/dL Hct 22.3 L (34.0-46.0) % Glucose 101 H (74-99) mg/dL POC Glucose (mg/dL) 116 H (75-99) mg/dL Calcium 8.3 L (8.4-10.2) mg/dL AST 149 H (14-36) U/L ALT 134 H (9-52) U/L Total Protein 5.3 L (6.3-8.2) g/dL Albumin 2.7 L (3.5-5.0) g/dL Assessment and Plan Assessment: Assessment #1 status post mitral valve repair #2 volume overload Plan #1 continue the current medical regimen including Lasix IV. #2 continue monitor the kidney function and electrolytes #3 continue monitor the hemoglobin #4 follow-up with the patient
[2018-05-07] MEDS: FUROSEMIDE 10 MG/ML 4 ML VIAL IV SCH ×2 (09:03→20:46)
[2018-05-07] MEDS: ATORVASTATIN 40 MG TAB PO SCH (09:03)
[2018-05-07] MEDS: ASPIRIN 325 MG TAB PO SCH (09:03)
[2018-05-07] MEDS: PANTOPRAZOLE 40 MG/10 ML VIAL IVP SCH ×2 (09:04→20:45)
[2018-05-07] MEDS: POTASSIUM CHLORIDE ER 20 MEQ TAB.ER PO SCH ×2 (09:04→12:32)
[2018-05-07] MEDS: METOPROLOL TARTRATE 12.5 MG TAB PO SCH (09:04)
[2018-05-07] MEDS ORDERED: DEXTROSE 5% IN WATER 100 ML with AMIODARONE 150 MG IV STA (10:30)
[2018-05-07] MEDS ORDERED: AMIODARONE 450 MG in DEXTROSE 5% IN WATER 250 ML IV STA ×2 (10:30)
[2018-05-07 11:20] LABS: Glucose,Whole Blood 143 mg/dL (75-99)
[2018-05-07] MEDS ORDERED: DEXTROSE 5% IN WATER 100 ML with AMIODARONE 150 MG IV ONE ×3 (13:14→18:55)
--- NOTE | 2018-05-07 13:58 | P.PN ---
Subjective Progress Note Date: 05/07/18 Principal diagnosis: Severe mitral regurgitation, status post mitral valve repair, modified maze, postop day #5 This is a 63-year-old female whom I saw on consultation yesterday, patient is postoperative day #1, mitral valve annuloplasty with 26 mm physio2 ring, modified Mauricio maze procedure bilateral pulmonary vein ablation and proximal lesion with RF. Patient has multiple medical problems which were listed in my consultation, she was extubated around 21:30 PM. Tolerated the extubation well , presently sitting in a bedside chair, in no form of respiratory distress. No specific complaints. She is hemodynamically stable, not requiring any pressors or inotropes. Chest x-ray is reassuring. Reevaluated today on 05/04/2018, patient is postoperative day #2. Overall the patient is doing great, chest x-ray is showing some left lower lobe atelectasis and small left pleural effusion. However patient is asymptomatic, denies any shortness of breath, no cough, no wheezing. Labs were reviewed she had a relatively normal basic metabolic profile, normal CBC hemoglobin is 7.2 however. Reevaluated today on 05/05/2018, patient is postoperative day #3. Continues to do well, chest x-ray continues to show some left basilar atelectasis, patient remains relatively asymptomatic. Denies any shortness of breath, no cough, no wheezing, her chest tubes were removed yesterday. O2 saturation is 94% on 2 L nasal cannula. Achieving about 1000 mL via incentive spirometry. Reevaluated today on 05/06/2018, postoperative day #4 patient is on selective care, continues to do relatively well, in no distress, denies any cough wheezing or shortness of breath, she does have some dyspnea on exertion. Ambulating in the hallway with assistance. Her O2 saturation is 96% on 2 L. Continues to do well with incentive spirometry, improving slowly but steadily. On 05/07/2018 patient seen in follow-up on selective care unit. She is having a midline IV catheter placed by [employer] staff. She some shortness of breath, today's chest x-ray has been reviewed by by Dr. Fuller, showed interval development of basilar airspace disease versus atelectasis and possible pleural effusion. Case was discussed with the CT surgery, and patient was placed on IV diuretics of 40 mg every 8 hours. Continues on nebulized bronchodilators, she is working on her incentive spirometer, she is able to achieve 1000 mL on the today. Patient has been ambulating, with assistance, and tolerating reasonably well. Pulse ox on 3 L per nasal cannula is 96%. Objective - Vital Signs Vital signs: Vital Signs Temp 98.5 F 05/07/18 08:00 Pulse 142 H 05/07/18 12:00 Resp 16 05/07/18 12:00 BP 92/54 05/07/18 12:00 Pulse Ox 96 05/07/18 12:00 Intake & Output 05/06/18 05/07/18 05/07/18 18:59 06:59 18:59 Intake Total 720 440 Output Total 1000 850 100 Balance -280 -850 340 Weight 109.6 kg Intake: Oral 720 440 Output: Urine 1000 850 100 Other: Voiding Method Toilet # Voids 3 1 # Bowel Movements 0 ABP, PAP, CO, CI - Last Documented Arterial Blood Pressure 130/45 Pulmonary Artery Pressure 27/6 Cardiac Output 6.6 Cardiac Index 3.1 - Exam Physical Exam: Revealed a 63-year-old female, obese, moderately short of breath Head: Atraumatic, normocephalic. HEENT:[Neck is supple.] [No neck masses.] [No thyromegaly.] [No JVD.] Chest: Diminished breath sounds bilaterally, no crackles, no rhonchi, no wheezes. Cardiac Exam: [Normal S1 and S2, no S3 gallop, no murmur.] Abdomen: [Obese, Soft, nontender, no megaly, no rebound, no guarding, normal bowel sounds.] Extremities: Knee high FACUNDO hose and sequential compression devices noted in place in both lower extremities. Neurological Exam: [No focal neurologic deficit.] Psychiatric: Blunt affect, normal mood, normal mental status exam. Lymphatics: No lymphadenopathy. - Labs CBC & Chem 7: 05/07/18 07:04 05/07/18 07:04 Labs: Abnormal Lab Results - Last 24 Hours (Table) 05/06/18 05/06/18 05/07/18 Range/Units 16:13 22:49 05:45 RBC (3.80-5.40) m/uL Hgb (11.4-16.0) gm/dL Hct (34.0-46.0) % Glucose (74-99) mg/dL POC Glucose (mg/dL) 132 H 143 H 116 H (75-99) mg/dL Calcium (8.4-10.2) mg/dL AST (14-36) U/L ALT (9-52) U/L Total Protein (6.3-8.2) g/dL Albumin (3.5-5.0) g/dL 05/07/18 05/07/18 05/07/18 Range/Units 07:04 07:04 11:13 RBC 2.51 L (3.80-5.40) m/uL Hgb 7.3 L (11.4-16.0) gm/dL Hct 22.3 L (34.0-46.0) % Glucose 101 H (74-99) mg/dL POC Glucose (mg/dL) 143 H (75-99) mg/dL Calcium 8.3 L (8.4-10.2) mg/dL AST 149 H (14-36) U/L ALT 134 H (9-52) U/L Total Protein 5.3 L (6.3-8.2) g/dL Albumin 2.7 L (3.5-5.0) g/dL Assessment and Plan Plan: Assessment: #1. Severe mitral regurgitation, status post mitral valve repair modified Maze , postop day 5 #2. Routine postoperative ventilator management, uneventful #3. Postop blood loss anemia, an expected outcomes of surgery #4. History of atrial fibrillation, post-ablation #5. Rheumatoid arthritis #6. Hypertension #7. Recent hospitalization for pulmonary edema #8. Obstructive sleep apnea, on CPAP therapy #9. Liver lesion possibly hemangioma #10. History of GI bleeding, history of antral ulcer #11. postoperative atelectasis involving the left side, expected post surgery. Chest x-ray from 05/06/2018 was reviewed, basically is unchanged, continues to show some atelectasis and maybe a small pleural effusion on the left base. Plan: Case was discussed with CT surgery, today's chest x-ray shows fluid overload, patient will be placed on IV Lasix at 40 mg every 8 hours. Continue encouraging deep breathing and coughing, and incentive spirometry use. Continue to follow. Anticipate discharge to a subacute rehab or inpatient rehab soon I performed a history & physical examination of the patient and discussed their management with my nurse practitioner, Melly Murrell. I reviewed the nurse practitioner's note and agree with the documented findings and plan of care. Lung sounds are clear. The findings and the impression was discussed with the patient. I attest to the documentation by the nurse practitioner. Time with Patient: Less than 30
--- NOTE | 2018-05-07 14:42 | P.PN ---
Subjective Progress Note Date: 05/07/18 Principal diagnosis: Severe mitral valve regurgitation. Paroxysmal atrial fibrillation on Xarelto for anticoagulation status post ablation and cardioversions. History of hypertension, hyperlipidemia, rheumatoid arthritis, obesity with a BMI of 40, obstructive sleep apnea with home CPAP use, moderate COPD with preoperative FEV1 52% of predicted, anemia, gastric ulcer, history of MRSA to her right arm, and preoperative nasal swab positive for MSSA. POD #5 mitral valve annuloplasty with 26 mm physio-2 ring, modified Mauricio maze procedure with a full left-sided lesion set including coronary sinus lesion and mitral annular attachment with cryo-probe as well as high lateral pulmonary vein ablation and proximal lesion with RF. Closure of the left atrial appendage. Patient is laying in bed with her head elevated on the 3 S. unit. She is in no acute distress. Currently denies any complaints of pain or shortness of breath. Her labs this morning show a hemoglobin of 7.3, AST 149, ALT 134. Her appetite has improved, she reports she is eating about 50% of her meals now. Oxygen saturations are 95% on room air. She is achieving 1000 ml on her incentive spirometry. Objective - Vital Signs Vital signs: Vital Signs Temp 98.3 F 05/07/18 04:00 Pulse 72 05/07/18 08:38 Resp 18 05/07/18 04:00 BP 118/56 05/07/18 04:00 Pulse Ox 95 05/07/18 04:00 Intake & Output 05/06/18 05/07/18 05/07/18 18:59 06:59 18:59 Intake Total 720 Output Total 1000 850 Balance -280 -850 Weight 109.6 kg Intake: Oral 720 Output: Urine 1000 850 Other: Voiding Method Toilet # Voids 3 ABP, PAP, CO, CI - Last Documented Arterial Blood Pressure 130/45 Pulmonary Artery Pressure 27/6 Cardiac Output 6.6 Cardiac Index 3.1 - Constitutional General appearance: Present: cooperative, no acute distress, obese - Respiratory Details: Lung sounds essentially clear throughout, diminished bilateral bases. Respirations are symmetrical and nonlabored. Oxygen saturation are 95% on room air. She is achieving 1000 mL on her incentive spirometry. - Cardiovascular Details: Regular rhythm and rate. S1 and S2 present, negative for S3, gallop or murmur. Sternum is stable. Remote telemetry showing normal sinus rhythm heart rate 77. Heart hugger was in place and she is demonstrating appropriate use. No edema present. Knee-high FACUNDO hose and sequential compression devices in place to bilateral lower extremities. Atrial and ventricular epicardial pacemaker wires were removed yesterday. - Gastrointestinal Gastrointestinal Comment(s): Abdomen soft, nontender and nondistended. Active bowel sounds to all 4 abdominal quadrants. Tolerating oral intake. Bowel movement yesterday 2017. - Genitourinary Genitourinary Comment(s): Voiding clear yellow urine. 650 mL output in the last 8 hours. - Integumentary Integumentary Comment(s): Skin is warm and dry. No clubbing or cyanosis present. Midline sternal incision clean dry and approximated. No drainage or redness present. Gauze dressing clean and dry. No rash or abnormal pigmentation present. - Neurologic Neurologic: Present: CNII-XII intact - Musculoskeletal Musculoskeletal: Present: gait normal, generalized weakness, strength equal bilaterally - Psychiatric Psychiatric: Present: A&O x's 3, appropriate affect, intact judgment & insight - Allied health notes Allied health notes reviewed: nursing - Labs CBC & Chem 7: 05/07/18 07:04 05/07/18 07:04 Labs: Abnormal Lab Results - Last 24 Hours (Table) 05/06/18 05/06/18 05/06/18 Range/Units 11:47 16:13 22:49 RBC (3.80-5.40) m/uL Hgb (11.4-16.0) gm/dL Hct (34.0-46.0) % Glucose (74-99) mg/dL POC Glucose (mg/dL) 118 H 132 H 143 H (75-99) mg/dL Calcium (8.4-10.2) mg/dL AST (14-36) U/L ALT (9-52) U/L Total Protein (6.3-8.2) g/dL Albumin (3.5-5.0) g/dL 05/07/18 05/07/18 05/07/18 Range/Units 05:45 07:04 07:04 RBC 2.51 L (3.80-5.40) m/uL Hgb 7.3 L (11.4-16.0) gm/dL Hct 22.3 L (34.0-46.0) % Glucose 101 H (74-99) mg/dL POC Glucose (mg/dL) 116 H (75-99) mg/dL Calcium 8.3 L (8.4-10.2) mg/dL AST 149 H (14-36) U/L ALT 134 H (9-52) U/L Total Protein 5.3 L (6.3-8.2) g/dL Albumin 2.7 L (3.5-5.0) g/dL - Imaging and Cardiology Chest x-ray: report reviewed, image reviewed Assessment and Plan (1) Hyperlipidemia Current Visit: Yes Status: Acute Code(s): E78.5 - HYPERLIPIDEMIA, UNSPECIFIED SNOMED Code(s): 98367453 (2) COPD (chronic obstructive pulmonary disease) Current Visit: Yes Status: Chronic Code(s): J44.9 - CHRONIC OBSTRUCTIVE PULMONARY DISEASE, UNSPECIFIED SNOMED Code(s): 25596534 (3) HTN (hypertension) Current Visit: Yes Status: Chronic Code(s): I10 - ESSENTIAL (PRIMARY) HYPERTENSION SNOMED Code(s): 55903256 (4) History of anemia Current Visit: Yes Status: Chronic Code(s): Z86.2 - PRSNL HISTORY OF DIS OF THE BLD[facility]BL[facility] SN[facility] Code(s): 595322423 (5) Left bundle branch block Current Visit: Yes Status: Chronic Code(s): I44.7 - LEFT BUNDLE-BRANCH BLOCK , UNSPECIFIED SNOMED Code(s): 91312040 (6) Obstructive sleep apnea Current Visit: Yes Status: Chronic Code(s): G47.33 - OBSTRUCTIVE SLEEP APNEA (ADULT) (PEDIATRIC) SNOMED Code(s): 70335254 (7) Rheumatoid arthritis Current Visit: Yes Status: Chronic Code(s): M06.9 - RHEUMATOID ARTHRITIS, UNSPECIFIED SNOMED Code(s): 33766648 (8) Severe mitral valve regurgitation Current Visit: No Status: Acute Code(s): I34.0 - NONRHEUMATIC MITRAL (VALVE ) INSUFFICIENCY SNOMED Code(s): 38987594 (9) Chronic anticoagulation Current Visit: No Status: Chronic Code(s): Z79.01 - NURSING HOME (CURRENT) USE OF ANTICOAGULANTS SNOMED Code(s): 034243045 (10) History of upper gastrointestinal bleeding Current Visit: No Status: Chronic Code(s): Z87.19 - PERSONAL HISTORY OF OTHER DISEASES OF THE DIGESTIVE SYSTEM SNOMED Code(s): 362017217 (11) Paroxysmal a-fib Current Visit: No Status: Resolved Code(s): I48.0 - PAROXYSMAL ATRIAL FIBRILLATION SNOMED Code(s): 315805056 Plan: 1. Continue aspirin, statin, subcu heparin and beta miguel angel. We will increase beta miguel angel therapy as tolerated. Continue to hold flecainide at this time. 2. Encourage incentive spirometry use 10 times every hour while awake. 3. Increase activity, ambulate as tolerated. PT/OT/cardiac rehab following. 4. Continue Lasix to 40 mg IV push twice a day. Replace electrolytes per protocol. 5. Will monitor daily labs and x-rays. 6. Bronchodilators management per pulmonology. 7. Medical management and a blood sugar management per primary care service. 8. Pain control with current medication regimen. 9. GI prophylaxis with Protonix, DVT prophylaxis with subcu heparin and SCDs. 10. Continue ferrous sulfate 325 mg by mouth twice a day due to history of anemia. 11. More recommendations to follow based on patient's clinical course. Anticipate the patient will need subacute or inpatient rehab upon discharge. 12. Dr. Trevino noted and appreciated. Time with Patient: Greater than 30
[2018-05-07 16:46] LABS: Glucose,Whole Blood 128 mg/dL (75-99)
[2018-05-07] MEDS ORDERED: POTASSIUM CHLORIDE ER 20 MEQ TAB.ER PO SCH (18:00)
[2018-05-07] MEDS ORDERED: AMIODARONE 450 MG in DEXTROSE 5% IN WATER 250 ML IV SCH ×2 (18:30)
--- NOTE | 2018-05-07 19:26 | P.PN ---
Subjective this is a pleasant 63 yo F with pmh of who presents with Severe mitral regurgitation, status postmitral valve annuloplasty , pt today is lying in chair , pt denies to me chest pain , no dyspnea ,no change in urine or bowel habits. pt states she is generally weak. 05/06/2018 Patient still with no dyspnea. No change in bowel habits. Cardiology team is following up the patient for chest pain. However patient still needed pain medication. Patient was seen walking the hallway with physical therapy team. She still feels generally weak. Patient might benefit from subacute rehab in the following days. 05/07/2018 Patient today heart rate went up to 160. patient found to be in A. fib with rapid ventricular rate associated with dyspnea and some chest discomfort. Cardiology recommended to start patient on amiodarone drip. Currently heart rate in 110s. Objective - Vital Signs Vital signs: Vital Signs Temp 98.4 F 05/07/18 15:24 Pulse 114 H 05/07/18 17:22 Resp 16 05/07/18 16:00 BP 97/55 05/07/18 17:20 Pulse Ox 98 05/07/18 15:24 Intake & Output 05/07/18 05/07/18 05/08/18 06:59 18:59 06:59 Intake Total 680 Output Total 850 400 Balance -850 280 Weight 109.6 kg Intake: Oral 680 Output: Urine 850 400 Other: Voiding Method Toilet # Voids 3 1 # Bowel Movements 0 ABP, PAP, CO, CI - Last Documented Arterial Blood Pressure 130/45 Pulmonary Artery Pressure 27/6 Cardiac Output 6.6 Cardiac Index 3.1 - Exam Physical exam -GENERAL: The patient is alert and oriented x3, not in any acute distress. Well developed, well nourished. however she is generally weak HEENT: Pupils are round and equally reacting to light. EOMI. No scleral icterus. No conjunctival pallor. Normocephalic, atraumatic. No pharyngeal erythema. No thyromegaly. CARDIOVASCULAR: S1 and S2 present. No murmurs, rubs, or gallops. PULMONARY: Chest is clear to auscultation, no wheezing or crackles. ABDOMEN: Soft, nontender, nondistended, normoactive bowel sounds. No palpable organomegaly. MUSCULOSKELETAL: No joint swelling or deformity. EXTREMITIES: No cyanosis, clubbing, or pedal edema. NEUROLOGICAL: Gross neurological examination did not reveal any focal deficits. SKIN: No rashes. - Labs CBC & Chem 7: 05/07/18 07:04 05/07/18 16:36 Labs: Abnormal Lab Results - Last 24 Hours (Table) 05/06/18 05/07/18 05/07/18 Range/Units 22:49 05:45 07:04 RBC 2.51 L (3.80-5.40) m/uL Hgb 7.3 L (11.4-16.0) gm/dL Hct 22.3 L (34.0-46.0) % Glucose (74-99) mg/dL POC Glucose (mg/dL) 143 H 116 H (75-99) mg/dL Calcium (8.4-10.2) mg/dL AST (14-36) U/L ALT (9-52) U/L Total Protein (6.3-8.2) g/dL Albumin (3.5-5.0) g/dL 05/07/18 05/07/18 05/07/18 Range/Units 07:04 11:13 16:45 RBC (3.80-5.40) m/uL Hgb (11.4-16.0) gm/dL Hct (34.0-46.0) % Glucose 101 H (74-99) mg/dL POC Glucose (mg/dL) 143 H 128 H (75-99) mg/dL Calcium 8.3 L (8.4-10.2) mg/dL AST 149 H (14-36) U/L ALT 134 H (9-52) U/L Total Protein 5.3 L (6.3-8.2) g/dL Albumin 2.7 L (3.5-5.0) g/dL Assessment and Plan Assessment: Status post mitral valve annuloplasty for mitral regurgitation with paroxysmal atrial fibrillation Generalized weakness History of GI bleed Essential hypertension History of rheumatoid arthritis History of sleep apnea History of recent antral ulcer and anemia Surgery of coronary artery disease status post cardiac cath Obesity with body mass index of 41 Plan: Recommend to continue with same treatment. Continue with symptomatic treatment. Monitor lytes and vitals. Recommend use of incentive spirometry. Closely follow up with multiple consultants. GI and DVT prophylaxis. Further recommendations based on the clinical course of the patient. Prognosis is guarded Patient may benefit from subacute rehab
[2018-05-07] MEDS: SENNOSIDES-DOCUSATE SODIUM 1 EACH TAB PO SCH (20:45)
[2018-05-07 20:47] LABS: Glucose,Whole Blood 156 mg/dL (75-99)
[2018-05-07] MEDS ORDERED: METOPROLOL TARTRATE 25 MG TAB PO SCH (21:00)
[2018-05-08] MEDS: HYDROcodone/APAP 5-325MG 1 EACH TAB PO PRN (05:18)
[2018-05-08] MEDS: FERROUS SULFATE 325 MG TAB PO SCH ×3 (05:22→17:13)
[2018-05-08] MEDS: HEPARIN SODIUM,PORCINE 5,000 UNIT/ML 1 ML VIAL SQ SCH ×3 (05:22→21:00)
[2018-05-08 05:50] LABS: Glucose,Whole Blood 110 mg/dL (75-99)
[2018-05-08] MEDS: INSULIN ASPART 100 UNIT/ML 1 ML 10 ML VIAL SQ SCH ×4 (05:52→20:59)
[2018-05-08 07:25] LABS: Basophils % (A) 0 %; Eosinophils # (A) 0.1 k/uL (0-0.7); Eosinophils % (A) 2 %; HCT 22.6 % (34.0-46.0); HGB 7.3 gm/dL (11.4-16.0); Lymphocytes # (A) 1.9 k/uL (1.0-4.8); Lymphocytes % (A) 32 %; MCH 28.4 pg (25.0-35.0); MCHC 32.5 g/dL (31.0-37.0); MCV 87.6 fL (80.0-100.0); Mean Platelet Volume 7.9; Monocytes # (A) 0.7 k/uL (0-1.0); Monocytes % (A) 12 %; Neutrophils # (A) 3.1 k/uL (1.3-7.7); Neutrophils % (A) 51 %; Platelet Count 261 k/uL (150-450); RBC 2.58 m/uL (3.80-5.40); RDW 14.4 % (11.5-15.5); WBC 6.1 k/uL (3.8-10.6)
[2018-05-08 07:40] LABS: ALT 153 U/L (9-52); AST 99 U/L (14-36); Albumin 2.8 g/dL (3.5-5.0); Alkaline Phosphatase 71 U/L (38-126); Anion Gap 9 mmol/L; Blood Urea Nitrogen 8 mg/dL (7-17); Calcium 8.4 mg/dL (8.4-10.2); Carbon Dioxide 29 mmol/L (22-30); Chloride 100 mmol/L (98-107); Glucose 110 mg/dL (74-99); Magnesium 1.7 mg/dL (1.6-2.3); Potassium 3.6 mmol/L (3.5-5.1); Sodium 138 mmol/L (137-145); Total Bilirubin 0.4 mg/dL (0.2-1.3); Total Protein 5.4 g/dL (6.3-8.2)
--- NOTE | 2018-05-08 08:38 | XR ---
EXAMINATION TYPE: XR chest 1V portable DATE OF EXAM: 05/08/2018 COMPARISON: 05/07/2018 HISTORY: Postop TECHNIQUE: Single frontal view of the chest is obtained. FINDINGS: Postsurgical changes seen with bilateral consolidation and pleural effusion. No pneumothor ax. Interstitium stable and mildly increased. Heart size is mildly enlarged. IMPRESSION: 1. Stable x-ray demonstrating bilateral infiltrate and pleural effusion correlate for mild central ve nous congestion.
[2018-05-08] MEDS: AMIODARONE 200 MG TAB PO SCH ×2 (08:41→20:59)
[2018-05-08] MEDS: ATORVASTATIN 40 MG TAB PO SCH (08:41)
[2018-05-08] MEDS: ASPIRIN 325 MG TAB PO SCH (08:41)
[2018-05-08] MEDS: METOPROLOL TARTRATE 25 MG TAB PO SCH ×2 (08:42→17:13)
[2018-05-08] MEDS: MAGNESIUM SULFATE-D5W PMX 1 GM in DEXTROSE/WATER 1 100ML.BAG IVPB SCH ×2 (08:42→12:07)
[2018-05-08] MEDS: PANTOPRAZOLE 40 MG/10 ML VIAL IVP SCH ×2 (08:42→21:03)
[2018-05-08] MEDS: FUROSEMIDE 10 MG/ML 4 ML VIAL IV SCH ×2 (08:45→20:59)
[2018-05-08] MEDS ORDERED: METOPROLOL TARTRATE 25 MG TAB PO SCH (09:00)
[2018-05-08] MEDS ORDERED: POTASSIUM CHLORIDE ER 20 MEQ TAB.ER PO SCH (09:00)
[2018-05-08] MEDS: IPRATROPIUM-ALBUTEROL 3 ML NEB INHALATION SCH ×4 (09:14→19:32)
[2018-05-08] MEDS: ACETAMINOPHEN TAB 325 MG TAB PO PRN ×3 (10:49→23:10)
[2018-05-08] MEDS: ONDANSETRON 4 MG/2 ML VIAL IVP PRN (10:49)
--- NOTE | 2018-05-08 10:58 | P.PN ---
Subjective Progress Note Date: 05/08/18 Principal diagnosis: Severe mitral regurgitation, status post mitral valve repair, modified maze, postop day #5 This is a 63-year-old female whom I saw on consultation yesterday, patient is postoperative day #1, mitral valve annuloplasty with 26 mm physio2 ring, modified Mauricio maze procedure bilateral pulmonary vein ablation and proximal lesion with RF. Patient has multiple medical problems which were listed in my consultation, she was extubated around 21:30 PM. Tolerated the extubation well , presently sitting in a bedside chair, in no form of respiratory distress. No specific complaints. She is hemodynamically stable, not requiring any pressors or inotropes. Chest x-ray is reassuring. Reevaluated today on 05/04/2018, patient is postoperative day #2. Overall the patient is doing great, chest x-ray is showing some left lower lobe atelectasis and small left pleural effusion. However patient is asymptomatic, denies any shortness of breath, no cough, no wheezing. Labs were reviewed she had a relatively normal basic metabolic profile, normal CBC hemoglobin is 7.2 however. Reevaluated today on 05/05/2018, patient is postoperative day #3. Continues to do well, chest x-ray continues to show some left basilar atelectasis, patient remains relatively asymptomatic. Denies any shortness of breath, no cough, no wheezing, her chest tubes were removed yesterday. O2 saturation is 94% on 2 L nasal cannula. Achieving about 1000 mL via incentive spirometry. Reevaluated today on 05/06/2018, postoperative day #4 patient is on selective care, continues to do relatively well, in no distress, denies any cough wheezing or shortness of breath, she does have some dyspnea on exertion. Ambulating in the hallway with assistance. Her O2 saturation is 96% on 2 L. Continues to do well with incentive spirometry, improving slowly but steadily. On 05/07/2018 patient seen in follow-up on selective care unit. She is having a midline IV catheter placed by Tightening Machine Operator staff. She some shortness of breath, today's chest x-ray has been reviewed by by Dr. Fuller, showed interval development of basilar airspace disease versus atelectasis and possible pleural effusion. Case was discussed with the CT surgery, and patient was placed on IV diuretics of 40 mg every 8 hours. Continues on nebulized bronchodilators, she is working on her incentive spirometer, she is able to achieve 1000 mL on the today. Patient has been ambulating, with assistance, and tolerating reasonably well. Pulse ox on 3 L per nasal cannula is 96%. On 05/08/2018 patient seen in follow-up on selective care unit. Yesterday patient went into A. fib, she was started on amiodarone drip. Metoprolol is currently 25 mg 3 times daily. se converted out of A. fib. Denies any shortness of breath, denies any chest pain. She is afebrile, hemodynamically stable, room air pulse ox is 98%, today's chest x-ray shows bilateral pleural effusions, and mild central venous congestion, consistent with fluid overload. Patient continues on IV Lasix at 40 mg every 12 hours, she is in -1270 mL fluid balance over the last 24 hours. She has been tolerating ambulation. She is compliant with her incentive spirometer. Objective - Vital Signs Vital signs: Vital Signs Temp 98.4 F 05/08/18 05:00 Pulse 113 H 05/08/18 05:00 Resp 18 05/08/18 05:00 BP 120/69 05/08/18 05:00 Pulse Ox 98 05/08/18 05:00 Intake & Output 05/07/18 05/08/18 05/08/18 18:59 06:59 18:59 Intake Total 680 240 Output Total 400 1550 Balance 280 -1550 240 Weight 109.7 kg Intake: Oral 680 240 Output: Urine 400 1550 Other: Voiding Method Toilet # Voids 1 # Bowel Movements 0 ABP, PAP, CO, CI - Last Documented Arterial Blood Pressure 130/45 Pulmonary Artery Pressure 27/6 Cardiac Output 6.6 Cardiac Index 3.1 - Exam Physical Exam: Revealed a 63-year-old female, obese, moderately short of breath Head: Atraumatic, normocephalic. HEENT:[Neck is supple.] [No neck masses.] [No thyromegaly.] [No JVD.] Chest: Diminished breath sounds bilaterally, some bibasilar crackles, no rhonchi , no wheezes. Cardiac Exam: [Normal S1 and S2, no S3 gallop, no murmur.] Abdomen: [Obese, Soft, nontender, no megaly, no rebound, no guarding, normal bowel sounds.] Extremities: Knee high FACUNDO hose and sequential compression devices noted in place in both lower extremities. Neurological Exam: [No focal neurologic deficit.] Psychiatric: Blunt affect, normal mood, normal mental status exam. Lymphatics: No lymphadenopathy. - Labs CBC & Chem 7: 05/08/18 06:58 05/08/18 06:58 Labs: Abnormal Lab Results - Last 24 Hours (Table) 05/07/18 05/07/18 05/07/18 Range/Units 11:13 16:45 20:45 RBC (3.80-5.40) m/uL Hgb (11.4-16.0) gm/dL Hct (34.0-46.0) % Glucose (74-99) mg/dL POC Glucose (mg/dL) 143 H 128 H 156 H (75-99) mg/dL AST (14-36) U/L ALT (9-52) U/L Total Protein (6.3-8.2) g/dL Albumin (3.5-5.0) g/dL 05/08/18 05/08/18 05/08/18 Range/Units 05:49 06:58 06:58 RBC 2.58 L (3.80-5.40) m/uL Hgb 7.3 L (11.4-16.0) gm/dL Hct 22.6 L (34.0-46.0) % Glucose 110 H (74-99) mg/dL POC Glucose (mg/dL) 110 H (75-99) mg/dL AST 99 H (14-36) U/L ALT 153 H (9-52) U/L Total Protein 5.4 L (6.3-8.2) g/dL Albumin 2.8 L (3.5-5.0) g/dL Assessment and Plan Plan: Assessment: #1. Severe mitral regurgitation, status post mitral valve repair modified Maze , postop day 6 #2. Atrial fibrillation, with rapid ventricular response #3. Routine postoperative ventilator management, uneventful #4. Postop blood loss anemia, an expected outcomes of surgery #5 History of atrial fibrillation, post-ablation #6. Rheumatoid arthritis #7. Hypertension #8. Recent hospitalization for pulmonary edema #9. Obstructive sleep apnea, on CPAP therapy #10. Liver lesion possibly hemangioma #11. History of GI bleeding, history of antral ulcer #12. postoperative atelectasis involving the left side, expected post surgery. Chest x-ray from 05/06/2018 was reviewed, basically is unchanged, continues to show some atelectasis and maybe a small pleural effusion on the left base. Plan: Today's chest x-ray shows bilateral pleural effusions, and mild central venous congestion. We'll continue IV diuretics, continue encouraging deep breathing and coughing. Continue nebulized bronchodilators. Patient continues on amiodarone drip for A. fib RVR, cardiology is following. I performed a history & physical examination of the patient and discussed their management with my nurse practitioner, Melly Murrell. I reviewed the nurse practitioner's note and agree with the documented findings and plan of care. Lung sounds are bibasilar crackles. The findings and the impression was discussed with the patient. I attest to the documentation by the nurse practitioner. Time with Patient: Less than 30
[2018-05-08 11:25] LABS: Glucose,Whole Blood 144 mg/dL (75-99)
--- NOTE | 2018-05-08 12:32 | P.PN ---
Subjective Progress Note Date: 05/08/18 This is a pleasant 63-year-old female who is status post mitral valve repair with mitral valve annuloplasty and modified maze procedure. Patient went into atrial fibrillation yesterday and was started on amiodarone drip. This has been discontinued today and she has been started on amiodarone 400 mg by mouth. Chest x-ray today showed stable bilateral infiltrates, pleural effusion and mild central venous congestion. She is maintaining sinus rhythm. Abdomen is stable at 7.3. Potassium today is 3.6 and magnesium 1.7, this is being replaced. She has been up ambulating in the halls. She was quite nauseous and had an episode of emesis this morning but is overall feeling better. Objective - Vital Signs Vital signs: Vital Signs Temp 98.4 F 05/08/18 05:00 Pulse 113 H 05/08/18 05:00 Resp 18 05/08/18 05:00 BP 120/69 05/08/18 05:00 Pulse Ox 98 05/08/18 05:00 Intake & Output 05/07/18 05/08/18 05/08/18 18:59 06:59 18:59 Intake Total 680 240 Output Total 400 1550 Balance 280 -1550 240 Weight 109.7 kg Intake: Oral 680 240 Output: Urine 400 1550 Other: Voiding Method Toilet # Voids 1 # Bowel Movements 0 ABP, PAP, CO, CI - Last Documented Arterial Blood Pressure 130/45 Pulmonary Artery Pressure 27/6 Cardiac Output 6.6 Cardiac Index 3.1 - Exam PHYSICAL EXAMINATION: HEENT: Head is atraumatic, normocephalic. Pupils equal, round. Neck is supple. There is no elevated jugular venous pressure. HEART EXAMINATION: Heart sounds regular, S1 and S2 normal. No murmur or gallop heard. CHEST EXAMINATION: Lungs reveal diminished air entry bilaterally with faint bibasilar crackles. No chest wall tenderness is noted on palpation or with deep breathing. ABDOMEN: Soft, nontender. Bowel sounds are heard. No organomegaly noted. EXTREMITIES: 2+ peripheral pulses with evidence of trace peripheral edema and no calf tenderness noted. Knee high FACUNDO hose and sequential compression devices noted bilaterally. NEUROLOGIC patient is awake, alert and oriented x3. . - Labs CBC & Chem 7: 05/08/18 06:58 05/08/18 06:58 Labs: Abnormal Lab Results - Last 24 Hours (Table) 05/07/18 05/07/18 05/08/18 Range/Units 16:45 20:45 05:49 RBC (3.80-5.40) m/uL Hgb (11.4-16.0) gm/dL Hct (34.0-46.0) % Glucose (74-99) mg/dL POC Glucose (mg/dL) 128 H 156 H 110 H (75-99) mg/dL AST (14-36) U/L ALT (9-52) U/L Total Protein (6.3-8.2) g/dL Albumin (3.5-5.0) g/dL 05/08/18 05/08/18 05/08/18 Range/Units 06:58 06:58 11:18 RBC 2.58 L (3.80-5.40) m/uL Hgb 7.3 L (11.4-16.0) gm/dL Hct 22.6 L (34.0-46.0) % Glucose 110 H (74-99) mg/dL POC Glucose (mg/dL) 144 H (75-99) mg/dL AST 99 H (14-36) U/L ALT 153 H (9-52) U/L Total Protein 5.4 L (6.3-8.2) g/dL Albumin 2.8 L (3.5-5.0) g/dL Assessment and Plan Assessment: #1 status post mitral valve repair #2 volume overload, improving #3 paroxysmal atrial fibrillation, currently maintaining sinus rhythm on amiodarone 400 mg by mouth twice a day as well as metoprolol tartrate which has been increased to 25 mg by mouth 3 times a day. Plan: From cardiology perspective, medications were reviewed and will continue the same. We would recommend anticoagulation when okayed by surgery. Continue to monitor daily weights, intake and output, renal function and electrolytes. We will continue to follow the patient required further recommendations accordingly. YOU[employer] ADULT [employer]RARIAN note has been reviewed, I agree with a documented findings and plan of care. Patient was seen and examined.
--- NOTE | 2018-05-08 12:35 | P.PN ---
Subjective this is a pleasant 63 yo F with pmh of who presents with Severe mitral regurgitation, status postmitral valve annuloplasty , pt today is lying in chair , pt denies to me chest pain , no dyspnea ,no change in urine or bowel habits. pt states she is generally weak. 05/06/2018 Patient still with no dyspnea. No change in bowel habits. Cardiology team is following up the patient for chest pain. However patient still needed pain medication. Patient was seen walking the hallway with physical therapy team. She still feels generally weak. Patient might benefit from subacute rehab in the following days. 05/07/2018 Patient today heart rate went up to 160. patient found to be in A. fib with rapid ventricular rate associated with dyspnea and some chest discomfort. Cardiology recommended to start patient on amiodarone drip. Currently heart rate in 110s. 05/08/2018 Patient heart rate is better controlled today and its around 112-2113. Patient dyspnea and chest pain are resolved. Patient was placed on amiodarone orally and metoprolol. Patient was feeling sick and vomiting several times of clear liquids this morning after she took her medication, mostly from a rotation. No abdominal pain or change in mental status. Patient received symptomatic treatment. Repeat chest x-ray shows bilateral pleural effusion with venous congestion. Pulmonary team evaluation is appreciated and the recommended to continue with conservative treatment with diuretics and breathing treatment. Liver enzymes are slightly elevated but bilirubin is normal. Follow-up LFTs. Patient still anemic with hemoglobin 7.3, patient still on iron pills. Objective - Vital Signs Vital signs: Vital Signs Temp 98.4 F 05/08/18 05:00 Pulse 113 H 05/08/18 05:00 Resp 18 05/08/18 05:00 BP 120/69 05/08/18 05:00 Pulse Ox 98 05/08/18 05:00 Intake & Output 05/07/18 05/08/18 05/08/18 18:59 06:59 18:59 Intake Total 680 240 Output Total 400 1550 Balance 280 -1550 240 Weight 109.7 kg Intake: Oral 680 240 Output: Urine 400 1550 Other: Voiding Method Toilet # Voids 1 # Bowel Movements 0 ABP, PAP, CO, CI - Last Documented Arterial Blood Pressure 130/45 Pulmonary Artery Pressure 27/6 Cardiac Output 6.6 Cardiac Index 3.1 - Exam Physical exam -GENERAL: The patient is alert and oriented x3, not in any acute distress. Well developed, well nourished. however she is generally weak HEENT: Pupils are round and equally reacting to light. EOMI. No scleral icterus. No conjunctival pallor. Normocephalic, atraumatic. No pharyngeal erythema. No thyromegaly. CARDIOVASCULAR: S1 and S2 present. No murmurs, rubs, or gallops. PULMONARY: Chest is clear to auscultation, no wheezing or crackles. ABDOMEN: Soft, nontender, nondistended, normoactive bowel sounds. No palpable organomegaly. MUSCULOSKELETAL: No joint swelling or deformity. EXTREMITIES: No cyanosis, clubbing, or pedal edema. NEUROLOGICAL: Gross neurological examination did not reveal any focal deficits. SKIN: No rashes. - Labs CBC & Chem 7: 05/08/18 06:58 05/08/18 06:58 Labs: Abnormal Lab Results - Last 24 Hours (Table) 05/07/18 05/07/18 05/08/18 Range/Units 16:45 20:45 05:49 RBC (3.80-5.40) m/uL Hgb (11.4-16.0) gm/dL Hct (34.0-46.0) % Glucose (74-99) mg/dL POC Glucose (mg/dL) 128 H 156 H 110 H (75-99) mg/dL AST (14-36) U/L ALT (9-52) U/L Total Protein (6.3-8.2) g/dL Albumin (3.5-5.0) g/dL 05/08/18 05/08/18 05/08/18 Range/Units 06:58 06:58 11:18 RBC 2.58 L (3.80-5.40) m/uL Hgb 7.3 L (11.4-16.0) gm/dL Hct 22.6 L (34.0-46.0) % Glucose 110 H (74-99) mg/dL POC Glucose (mg/dL) 144 H (75-99) mg/dL AST 99 H (14-36) U/L ALT 153 H (9-52) U/L Total Protein 5.4 L (6.3-8.2) g/dL Albumin 2.8 L (3.5-5.0) g/dL Assessment and Plan Assessment: Status post mitral valve annuloplasty for mitral regurgitation with paroxysmal atrial fibrillation Generalized weakness History of GI bleed Essential hypertension History of rheumatoid arthritis History of sleep apnea History of recent antral ulcer and anemia Surgery of coronary artery disease status post cardiac cath Obesity with body mass index of 41 Plan: Recommend to continue with same treatment. Continue with symptomatic treatment. Monitor lytes and vitals. Recommend use of incentive spirometry. Closely follow up with multiple consultants. GI and DVT prophylaxis. Further recommendations based on the clinical course of the patient. Prognosis is guarded Patient may benefit from subacute rehab
[2018-05-08] MEDS ORDERED: MAGNESIUM SULFATE-D5W PMX 1 GM in DEXTROSE/WATER 1 100ML.BAG IVPB ONE (13:00)
[2018-05-08 16:28] LABS: Glucose,Whole Blood 131 mg/dL (75-99)
--- NOTE | 2018-05-08 16:36 | P.PN ---
Subjective Progress Note Date: 05/08/18 Principal diagnosis: Severe mitral valve regurgitation. Paroxysmal atrial fibrillation on Xarelto for anticoagulation status post ablation and cardioversions. History of hypertension, hyperlipidemia, rheumatoid arthritis, obesity with a BMI of 40, obstructive sleep apnea with home CPAP use, moderate COPD with preoperative FEV1 52% of predicted, anemia, gastric ulcer, history of MRSA to her right arm, and preoperative nasal swab positive for MSSA. POD #6 mitral valve annuloplasty with 26 mm physio-2 ring, modified Mauricio maze procedure with a full left-sided lesion set including coronary sinus lesion and mitral annular attachment with cryo-probe as well as high lateral pulmonary vein ablation and proximal lesion with RF. Closure of the left atrial appendage. The patient is sitting up to the bedside chair on the 3 S. unit. She is in no acute distress. Currently denies any complaints of pain or shortness of breath. Her labs this morning show a hemoglobin of 7.3, AST 99, ALT 153. She reports she did not eat any breakfast today. Oxygen saturations are 98% on room air. She is achieving 1000 ml on her incentive spirometry with encouragement. She ambulated in the [address] today with minimal assist this morning over 150 feet. After ambulating she had complaints of nausea and had an emesis 1. Patient went into atrial fibrillation with RVR yesterday and was started on amiodarone drip per protocol. She is currently in normal sinus rhythm heart rate 78. Objective - Vital Signs Vital signs: Vital Signs Temp 98.4 F 05/08/18 05:00 Pulse 113 H 05/08/18 05:00 Resp 18 05/08/18 05:00 BP 120/69 05/08/18 05:00 Pulse Ox 98 05/08/18 05:00 Intake & Output 05/07/18 05/08/18 05/08/18 18:59 06:59 18:59 Intake Total 680 240 Output Total 400 1550 Balance 280 -1550 240 Weight 109.7 kg Intake: Oral 680 240 Output: Urine 400 1550 Other: Voiding Method Toilet # Voids 1 # Bowel Movements 0 ABP, PAP, CO, CI - Last Documented Arterial Blood Pressure 130/45 Pulmonary Artery Pressure 27/6 Cardiac Output 6.6 Cardiac Index 3.1 - Constitutional General appearance: Present: cooperative, no acute distress, obese - Respiratory Details: Lungs sounds are essentially clear throughout, diminished bilateral bases left greater than right. Respirations are symmetrical and nonlabored. Oxygen saturation are 98% on room air. She is achieving 1009 L on her incentive spirometry. - Cardiovascular Details: Regular rhythm and rate. S1 and S2 present, negative for S3, gallop or murmur. Sternum is stable. Remote telemetry showing normal sinus rhythm heart rate 78. No further episodes of atrial fibrillation. Knee-high FACUNDO hose and sequential compression devices in place to bilateral lower extremities. No edema present. - Gastrointestinal Gastrointestinal Comment(s): Abdomen is soft, nontender nondistended. Active bowel sounds all 4 abdominal quadrants. Tolerating oral intake. Last bowel movement 05/06/2018. Nauseated and emesis 1 this a.m. - Genitourinary Genitourinary Comment(s): Voiding clear yellow urine. 550 mL output in the last 8 hours. - Neurologic Neurologic: Present: CNII-XII intact - Musculoskeletal Musculoskeletal: Present: gait normal, generalized weakness, strength equal bilaterally - Psychiatric Psychiatric: Present: A&O x's 3, appropriate affect, intact judgment & insight - Allied health notes Allied health notes reviewed: nursing - Labs CBC & Chem 7: 05/08/18 06:58 05/08/18 06:58 Labs: Abnormal Lab Results - Last 24 Hours (Table) 05/07/18 05/07/18 05/07/18 Range/Units 11:13 16:45 20:45 RBC (3.80-5.40) m/uL Hgb (11.4-16.0) gm/dL Hct (34.0-46.0) % Glucose (74-99) mg/dL POC Glucose (mg/dL) 143 H 128 H 156 H (75-99) mg/dL AST (14-36) U/L ALT (9-52) U/L Total Protein (6.3-8.2) g/dL Albumin (3.5-5.0) g/dL 05/08/18 05/08/18 05/08/18 Range/Units 05:49 06:58 06:58 RBC 2.58 L (3.80-5.40) m/uL Hgb 7.3 L (11.4-16.0) gm/dL Hct 22.6 L (34.0-46.0) % Glucose 110 H (74-99) mg/dL POC Glucose (mg/dL) 110 H (75-99) mg/dL AST 99 H (14-36) U/L ALT 153 H (9-52) U/L Total Protein 5.4 L (6.3-8.2) g/dL Albumin 2.8 L (3.5-5.0) g/dL - Imaging and Cardiology Chest x-ray: report reviewed, image reviewed Assessment and Plan (1) Hyperlipidemia Current Visit: Yes Status: Acute Code(s): E78.5 - HYPERLIPIDEMIA, UNSPECIFIED SNOMED Code(s): 31769399 (2) COPD (chronic obstructive pulmonary disease) Current Visit: Yes Status: Chronic Code(s): J44.9 - CHRONIC OBSTRUCTIVE PULMONARY DISEASE, UNSPECIFIED SNOMED Code(s): 22460320 (3) HTN (hypertension) Current Visit: Yes Status: Chronic Code(s): I10 - ESSENTIAL (PRIMARY) HYPERTENSION SNOMED Code(s): 58549678 (4) History of anemia Current Visit: Yes Status: Chronic Code(s): Z86.2 - PRSNL HISTORY OF DIS OF THE BLD/BLD-FORM ORG/IMMUN [facility] SNOMED Code(s): 887856259 (5) Left bundle branch block Current Visit: Yes Status: Chronic Code(s): I44.7 - LEFT BUNDLE-BRANCH BLOCK , UNSPECIFIED SNOMED Code(s): 60928980 (6) Obstructive sleep apnea Current Visit: Yes Status: Chronic Code(s): G47.33 - OBSTRUCTIVE SLEEP APNEA (ADULT) (PEDIATRIC) SNOMED Code(s): 35292048 (7) Rheumatoid arthritis Current Visit: Yes Status: Chronic Code(s): M06.9 - RHEUMATOID ARTHRITIS, UNSPECIFIED SNOMED Code(s): 12506880 (8) Severe mitral valve regurgitation Current Visit: No Status: Acute Code(s): I34.0 - NONRHEUMATIC MITRAL (VALVE ) INSUFFICIENCY SNOMED Code(s): 17434491 (9) Chronic anticoagulation Current Visit: No Status: Chronic Code(s): Z79.01 - SPEECH CLINICIAN (CURRENT) USE OF ANTICOAGULANTS SNOMED Code(s): 636773408 (10) History of upper gastrointestinal bleeding Current Visit: No Status: Chronic Code(s): Z87.19 - PERSONAL HISTORY OF OTHER DISEASES OF THE DIGESTIVE SYSTEM SNOMED Code(s): 208279767 (11) Paroxysmal a-fib Current Visit: No Status: Resolved Code(s): I48.0 - PAROXYSMAL ATRIAL FIBRILLATION SNOMED Code(s): 101647702 Plan: 1. Continue aspirin, statin, subcu heparin and beta miguel angel. Increase metoprolol tartrate 25 mg by mouth 3 times a day. 2. Encourage incentive spirometry use 10 times every hour while awake. 3. Increase activity, ambulate as tolerated. PT/OT/cardiac rehab following. 4. Continue Lasix to 40 mg IV push twice a day. Replace electrolytes per protocol. We will start the patient on potassium chloride 20 mEq by mouth daily. 5. Will monitor daily labs and x-rays. 6. Bronchodilators management per pulmonology. 7. Medical management and a blood sugar management per primary care service. 8. Pain control with current medication regimen. Discontinue Ashley, start acetaminophen 650 mg by mouth every 4 hours when necessary pain. 9. GI prophylaxis with Protonix, DVT prophylaxis with subcu heparin and SCDs. 10. Continue ferrous sulfate 325 mg by mouth twice a day due to history of anemia. 11. Change amiodarone to 400 mg by mouth twice a day for atrial fibrillation prophylaxis. Discontinue IV amiodarone. 12. More recommendations to follow based on patient's clinical course. Anticipate the patient will discharged to inpatient rehab within the next 24 hours.
[2018-05-08] MEDS ORDERED: POTASSIUM CHLORIDE ER 20 MEQ TAB.ER PO ONE (18:00)
[2018-05-08 20:49] LABS: Glucose,Whole Blood 145 mg/dL (75-99)
[2018-05-08] MEDS: SENNOSIDES-DOCUSATE SODIUM 1 EACH TAB PO SCH (20:58)
[2018-05-09] MEDS: ACETAMINOPHEN TAB 325 MG TAB PO PRN ×2 (03:14→06:54)
[2018-05-09 06:31] LABS: Glucose,Whole Blood 119 mg/dL (75-99)
[2018-05-09] MEDS: INSULIN ASPART 100 UNIT/ML 1 ML 10 ML VIAL SQ SCH ×4 (06:42→21:24)
[2018-05-09] MEDS: FERROUS SULFATE 325 MG TAB PO SCH ×3 (06:54→17:36)
[2018-05-09] MEDS: HEPARIN SODIUM,PORCINE 5,000 UNIT/ML 1 ML VIAL SQ SCH ×2 (06:55→13:01)
--- NOTE | 2018-05-09 07:34 | XR ---
EXAMINATION TYPE: XR chest 1V portable DATE OF EXAM: 05/09/2018 COMPARISON: Prior chest x-ray 05/08/2018 HISTORY: Is post mitral valve replacement TECHNIQUE: Single frontal view of the chest is obtained. FINDINGS: Patient is post median sternotomy and the heart remains enlarged. Interstitium is mildly i ncreased. There is no evident pneumothorax. Retrocardiac density suspicious for atelectasis or edema. There are overlying cardiac leads. Patient is rotated. IMPRESSION: Findings are similar. Correlate for volume overload, pulmonary venous hypertension and i nterstitial edema. There may be basilar atelectasis versus edema, difficult to exclude small effusion , pneumonia not excluded. Follow-up recommended.
[2018-05-09] MEDS: IPRATROPIUM-ALBUTEROL 3 ML NEB INHALATION SCH ×4 (07:55→19:09)
[2018-05-09] MEDS: PANTOPRAZOLE 40 MG/10 ML VIAL IVP SCH ×2 (08:36→20:33)
[2018-05-09] MEDS: KETOROLAC 30 MG/ML 1 ML VIAL IVP SCH ×3 (08:37→20:32)
[2018-05-09] MEDS: FUROSEMIDE 10 MG/ML 4 ML VIAL IV SCH ×2 (08:37→20:32)
[2018-05-09] MEDS: AMIODARONE 200 MG TAB PO SCH ×2 (08:38→20:33)
[2018-05-09] MEDS: ASPIRIN 325 MG TAB PO SCH (08:38)
[2018-05-09] MEDS: ATORVASTATIN 40 MG TAB PO SCH (08:38)
[2018-05-09] MEDS: METOPROLOL TARTRATE 25 MG TAB PO SCH ×3 (08:40→22:43)
--- NOTE | 2018-05-09 08:48 | P.PN ---
Subjective Progress Note Date: 05/09/18 Principal diagnosis: Severe mitral valve regurgitation. Paroxysmal atrial fibrillation on Xarelto for anticoagulation status post ablation and cardioversions. History of hypertension, hyperlipidemia, rheumatoid arthritis, obesity, obstructive sleep apnea with home CPAP use, moderate COPD with preoperative FEV1 52% of predicted , anemia, gastric ulcer, MRSA, and preoperative nasal swab positive for MSSA. POD #7 mitral valve annuloplasty with 26 mm physio-2 ring, modified Mauricio maze procedure with a full left-sided lesion set including coronary sinus lesion and mitral annular attachment with cryo-probe as well as high lateral pulmonary vein ablation and proximal lesion with RF. Closure of the left atrial appendage. The patient is currently sitting up in the chair on the cardiac stepdown unit in no acute distress. Does complain that sternal pain has increased since Rainier being discontinued yesterday, especially with coughing. Otherwise no new complaints. She is currently hemodynamically stable and awaiting insurance authorization for inpatient rehab. Objective - Vital Signs Vital signs: Vital Signs Temp 97.1 F L 05/09/18 04:00 Pulse 81 05/09/18 04:00 Resp 23 05/09/18 04:00 BP 135/59 05/09/18 04:00 Pulse Ox 99 05/09/18 04:00 Intake & Output 05/08/18 05/09/18 05/09/18 18:59 06:59 18:59 Intake Total 702 1260 180 Output Total 800 Balance -98 1260 180 Weight 109.9 kg Intake: Intake, IV Titration 300 Amount Magnesium Sulfate-D5w Pmx 300 1 gm In Dextrose/Water 1 100ml.bag @ 100 mls/hr IVPB Q1H [facility] Rx#: [id number] Oral 702 960 180 Output: Urine 800 Other: Voiding Method Toilet Toilet # Voids 3 ABP, PAP, CO, CI - Last Documented Arterial Blood Pressure 130/45 Pulmonary Artery Pressure 27/6 Cardiac Output 6.6 Cardiac Index 3.1 - Constitutional General appearance: Present: cooperative, no acute distress, obese - Respiratory Details: Lungs sounds diminished bilaterally. Respirations even, nonlabored. Currently on room air with oxygen saturation 99%. Able to achieve 750-1000 mL on her incentive spirometry. Effective cough. - Cardiovascular Details: S1, S2 present. Regular rate and rhythm, sinus rhythm on telemetry. Palpable peripheral pulses bilaterally. Trace bilateral lower extremity edema present. No calf pain or tenderness noted. Antiembolism stockings, SCDs present. Heart hugger in place with patient demonstrating appropriate use. - Gastrointestinal Gastrointestinal Comment(s): Abdomen soft, nontender, nondistended. Active bowel sounds 4 quadrants. Tolerating diet. Last bowel movement yesterday per patient. - Genitourinary Genitourinary Comment(s): Continues to void clear, yellow urine. - Neurologic Neurologic: Present: CNII-XII intact - Musculoskeletal Musculoskeletal: Present: gait normal, strength equal bilaterally - Psychiatric Psychiatric: Present: A&O x's 3, appropriate affect, intact judgment & insight - Allied health notes Allied health notes reviewed: nursing - Labs CBC & Chem 7: 05/09/18 08:00 05/09/18 08:00 Labs: Abnormal Lab Results - Last 24 Hours (Table) 05/08/18 05/08/18 05/08/18 Range/Units 11:18 16:24 20:45 POC Glucose (mg/dL) 144 H 131 H 145 H (75-99) mg/dL 05/09/18 Range/Units 06:30 POC Glucose (mg/dL) 119 H (75-99) mg/dL - Imaging and Cardiology Chest x-ray: report reviewed, image reviewed Assessment and Plan (1) COPD (chronic obstructive pulmonary disease) Current Visit: Yes Status: Chronic Code(s): J44.9 - CHRONIC OBSTRUCTIVE PULMONARY DISEASE, UNSPECIFIED SNOMED Code(s): 73276644 (2) Chronic anticoagulation Current Visit: No Status: Chronic Code(s): Z79.01 - USP (CURRENT) USE OF ANTICOAGULANTS SNOMED Code(s): 836024323 (3) Obstructive sleep apnea Current Visit: Yes Status: Chronic Code(s): G47.33 - OBSTRUCTIVE SLEEP APNEA (ADULT) (PEDIATRIC) SNOMED Code(s): 45546878 (4) Mitral valve regurgitation Current Visit: Yes Status: Chronic Code(s): I34.0 - NONRHEUMATIC MITRAL ( VALVE) INSUFFICIENCY SNOMED Code(s): 24786809 (5) HTN (hypertension) Current Visit: Yes Status: Chronic Code(s): I10 - ESSENTIAL (PRIMARY) HYPERTENSION SNOMED Code(s): 41558753 (6) History of anemia Current Visit: Yes Status: Chronic Code(s): Z86.2 - PRSNL HISTORY OF DIS OF THE BLD[facility]BLD[facility] SNOMED Code(s): 048694230 (7) History of upper gastrointestinal bleeding Current Visit: No Status: Chronic Code(s): Z87.19 - PERSONAL HISTORY OF OTHER DISEASES OF THE DIGESTIVE SYSTEM SNOMED Code(s): 863432344 (8) Left bundle branch block Current Visit: Yes Status: Chronic Code(s): I44.7 - LEFT BUNDLE-BRANCH BLOCK , UNSPECIFIED SNOMED Code(s): 83076186 (9) Paroxysmal a-fib Current Visit: No Status: Resolved Code(s): I48.0 - PAROXYSMAL ATRIAL FIBRILLATION SNOMED Code(s): 419970101 (10) Rheumatoid arthritis Current Visit: Yes Status: Chronic Code(s): M06.9 - RHEUMATOID ARTHRITIS, UNSPECIFIED SNOMED Code(s): 09978109 Plan: 1. Continue aspirin, statin, beta miguel angel. Will increase beta miguel angel therapy as tolerated. 2. Continue amiodarone for A. fib prophylaxis. No need for anticoagulation at this time as patient is back in sinus rhythm, she had a Mauricio maze procedure with closure of the left atrial appendage. 3. Encourage incentive spirometry use 10 times every hour while awake. 4. Increase activity, ambulate as tolerated. PT/OT/cardiac rehab following. 5. Continue Lasix 40 mg IV push every 12 hours. Will transition to oral Lasix upon discharge. Replace electrolytes per protocol. 6. Will monitor daily labs and x-rays. Continue oral iron her patient's home dose. No need for blood transfusion. 7. Bronchodilators per pulmonology. Will add in Mucinex. 8. Pain control with current medication regimen. Rainier and Toradol added back in for better pain control. 9. Diabetic management per primary care service. 10. GI prophylaxis with Protonix, DVT prophylaxis with subcu heparin, SCDs. 11. Medical management of other comorbidities per primary care service. 12. Will discharge to inpatient rehab when insurance authorization has been obtained. 13. More recommendations to follow. Time with Patient: Greater than 30
[2018-05-09 08:59] LABS: Basophils % (A) 0 %; Eosinophils # (A) 0.1 k/uL (0-0.7); Eosinophils % (A) 1 %; HCT 24.1 % (34.0-46.0); HGB 7.7 gm/dL (11.4-16.0); Hypochromasia Slight; Lymphocytes # (A) 2.6 k/uL (1.0-4.8); Lymphocytes % (A) 27 %; MCH 27.9 pg (25.0-35.0); MCHC 31.9 g/dL (31.0-37.0); MCV 87.5 fL (80.0-100.0); Mean Platelet Volume 9.4; Monocytes # (A) 0.6 k/uL (0-1.0); Monocytes % (A) 6 %; Neutrophils # (A) 6.2 k/uL (1.3-7.7); Neutrophils % (A) 64 %; Platelet Count 360 k/uL (150-450); RBC 2.75 m/uL (3.80-5.40); RDW 14.6 % (11.5-15.5); WBC 9.8 k/uL (3.8-10.6)
[2018-05-09] MEDS ORDERED: POTASSIUM CHLORIDE ER 20 MEQ TAB.ER PO SCH (09:00)
[2018-05-09 11:00] LABS: ALT 182 U/L (9-52); AST 103 U/L (14-36); Albumin 3.3 g/dL (3.5-5.0); Alkaline Phosphatase 92 U/L (38-126); Anion Gap 15 mmol/L; Blood Urea Nitrogen 10 mg/dL (7-17); Calcium 8.8 mg/dL (8.4-10.2); Carbon Dioxide 23 mmol/L (22-30); Chloride 101 mmol/L (98-107); Glucose 115 mg/dL (74-99); Potassium 4.3 mmol/L (3.5-5.1); Sodium 139 mmol/L (137-145); Total Bilirubin 0.4 mg/dL (0.2-1.3); Total Protein 6.2 g/dL (6.3-8.2)
[2018-05-09 11:11] LABS: Glucose,Whole Blood 111 mg/dL (75-99)
[2018-05-09] MEDS ORDERED: guaiFENesin 600 MG TABLET.ER PO PRN (12:40)
[2018-05-09] MEDS: HYDROcodone/APAP 5-325MG 1 EACH TAB PO PRN ×2 (12:45→18:50)
[2018-05-09 13:55] VITALS: BMI 40.3
--- NOTE | 2018-05-09 14:21 | P.PN ---
Subjective Progress Note Date: 05/09/18 Principal diagnosis: Severe mitral regurgitation, status post mitral valve repair, modified maze, postop day #5 This is a 63-year-old female whom I saw on consultation yesterday, patient is postoperative day #1, mitral valve annuloplasty with 26 mm physio2 ring, modified Mauricio maze procedure bilateral pulmonary vein ablation and proximal lesion with RF. Patient has multiple medical problems which were listed in my consultation, she was extubated around 21:30 PM. Tolerated the extubation well , presently sitting in a bedside chair, in no form of respiratory distress. No specific complaints. She is hemodynamically stable, not requiring any pressors or inotropes. Chest x-ray is reassuring. Reevaluated today on 05/04/2018, patient is postoperative day #2. Overall the patient is doing great, chest x-ray is showing some left lower lobe atelectasis and small left pleural effusion. However patient is asymptomatic, denies any shortness of breath, no cough, no wheezing. Labs were reviewed she had a relatively normal basic metabolic profile, normal CBC hemoglobin is 7.2 however. Reevaluated today on 05/05/2018, patient is postoperative day #3. Continues to do well, chest x-ray continues to show some left basilar atelectasis, patient remains relatively asymptomatic. Denies any shortness of breath, no cough, no wheezing, her chest tubes were removed yesterday. O2 saturation is 94% on 2 L nasal cannula. Achieving about 1000 mL via incentive spirometry. Reevaluated today on 05/06/2018, postoperative day #4 patient is on selective care, continues to do relatively well, in no distress, denies any cough wheezing or shortness of breath, she does have some dyspnea on exertion. Ambulating in the hallway with assistance. Her O2 saturation is 96% on 2 L. Continues to do well with incentive spirometry, improving slowly but steadily. On 05/07/2018 patient seen in follow-up on selective care unit. She is having a midline IV catheter placed by [facility] staff. She some shortness of breath, today's chest x-ray has been reviewed by by Dr. Fuller, showed interval development of basilar airspace disease versus atelectasis and possible pleural effusion. Case was discussed with the CT surgery, and patient was placed on IV diuretics of 40 mg every 8 hours. Continues on nebulized bronchodilators, she is working on her incentive spirometer, she is able to achieve 1000 mL on the today. Patient has been ambulating, with assistance, and tolerating reasonably well. Pulse ox on 3 L per nasal cannula is 96%. On 05/08/2018 patient seen in follow-up on selective care unit. Yesterday patient went into A. fib, she was started on amiodarone drip. Metoprolol is currently 25 mg 3 times daily. se converted out of A. fib. Denies any shortness of breath, denies any chest pain. She is afebrile, hemodynamically stable, room air pulse ox is 98%, today's chest x-ray shows bilateral pleural effusions, and mild central venous congestion, consistent with fluid overload. Patient continues on IV Lasix at 40 mg every 12 hours, she is in -1270 mL fluid balance over the last 24 hours. She has been tolerating ambulation. She is compliant with her incentive spirometer. On 05/09/2018 patient was seen again in follow-up on selective care unit. She is awake and alert, although is generally weak. She is on room air, pulse ox is 97%. Lung sounds are essentially clear to auscultation. She is working on her incentive spirometer. Patient is awaiting insurance authorization for inpatient rehab. Denies any difficulty breathing, today's chest x-ray has been reviewed, and shows findings consistent with volume overload, pulmonary venous hypertension, and interstitial edema. Basilar atelectasis versus edema, versus small effusions. He remains on IV diuretics, and she is in -1270 mL fluid balance over the last 24 hours. Objective - Vital Signs Vital signs: Vital Signs Temp 97.1 F L 05/09/18 12:00 Pulse 73 05/09/18 12:00 Resp 18 05/09/18 12:00 BP 122/56 05/09/18 12:00 Pulse Ox 97 05/09/18 12:00 Intake & Output 05/08/18 05/09/18 05/09/18 18:59 06:59 18:59 Intake Total 702 1260 180 Output Total 800 Balance -98 1260 180 Weight 109.9 kg 109.9 kg Intake: Intake, IV Titration 300 Amount Magnesium Sulfate-D5w Pmx 300 1 gm In Dextrose/Water 1 100ml.bag @ 100 mls/hr IVPB Q1H [facility] Rx#: [id number] Oral 702 960 180 Output: Urine 800 Other: Voiding Method Toilet Toilet Toilet # Voids 3 ABP, PAP, CO, CI - Last Documented Arterial Blood Pressure 130/45 Pulmonary Artery Pressure 27/6 Cardiac Output 6.6 Cardiac Index 3.1 - Exam Physical Exam: Revealed a 63-year-old female, obese, moderately short of breath Head: Atraumatic, normocephalic. HEENT:[Neck is supple.] [No neck masses.] [No thyromegaly.] [No JVD.] Chest: Diminished breath sounds bilaterally, no crackles, no rhonchi, no wheezes. Cardiac Exam: [Normal S1 and S2, no S3 gallop, no murmur.] Abdomen: [Obese, Soft, nontender, no megaly, no rebound, no guarding, normal bowel sounds.] Extremities: Knee high FACUNDO hose and sequential compression devices noted in place in both lower extremities. Neurological Exam: [No focal neurologic deficit.] Psychiatric: Blunt affect, normal mood, normal mental status exam. Lymphatics: No lymphadenopathy. - Labs CBC & Chem 7: 05/09/18 08:00 05/09/18 08:00 Labs: Abnormal Lab Results - Last 24 Hours (Table) 05/08/18 05/08/18 05/09/18 Range/Units 16:24 20:45 06:30 RBC (3.80-5.40) m/uL Hgb (11.4-16.0) gm/dL Hct (34.0-46.0) % Glucose (74-99) mg/dL POC Glucose (mg/dL) 131 H 145 H 119 H (75-99) mg/dL AST (14-36) U/L ALT (9-52) U/L Total Protein (6.3-8.2) g/dL Albumin (3.5-5.0) g/dL 05/09/18 05/09/18 05/09/18 Range/Units 08:00 08:00 11:05 RBC 2.75 L (3.80-5.40) m/uL Hgb 7.7 L (11.4-16.0) gm/dL Hct 24.1 L (34.0-46.0) % Glucose 115 H (74-99) mg/dL POC Glucose (mg/dL) 111 H (75-99) mg/dL AST 103 H (14-36) U/L ALT 182 H (9-52) U/L Total Protein 6.2 L (6.3-8.2) g/dL Albumin 3.3 L (3.5-5.0) g/dL Assessment and Plan Plan: Assessment: #1. Severe mitral regurgitation, status post mitral valve repair modified Maze , postop day 7 #2. Atrial fibrillation, with rapid ventricular response #3. Routine postoperative ventilator management, uneventful #4. Postop blood loss anemia, an expected outcomes of surgery #5 History of atrial fibrillation, post-ablation #6. Rheumatoid arthritis #7. Hypertension #8. Recent hospitalization for pulmonary edema #9. Obstructive sleep apnea, on CPAP therapy #10. Liver lesion possibly hemangioma #11. History of GI bleeding, history of antral ulcer #12. postoperative atelectasis involving the left side, expected post surgery. Chest x-ray from 05/06/2018 was reviewed, basically is unchanged, continues to show some atelectasis and maybe a small pleural effusion on the left base. Plan: Continue current plan of treatment, deep breathing and coughing, incentive spirometry use. Continue IV diuretics. Encourage ambulation, increase activity as tolerated. He is awaiting authorization for inpatient rehab placement. Remains stable otherwise. I performed a history & physical examination of the patient and discussed their management with my nurse practitioner, Melly Murrell. I reviewed the nurse practitioner's note and agree with the documented findings and plan of care. Lung sounds are clear. The findings and the impression was discussed with the patient. I attest to the documentation by the nurse practitioner. Time with Patient: Less than 30
--- NOTE | 2018-05-09 14:45 | P.PN ---
Subjective Progress Note Date: 05/09/18 This is a pleasant 63-year-old female who is status post mitral valve repair with mitral valve annuloplasty and modified maze procedure. She was seen and examined on the telemetry unit today, awake and alert. She has been up ambulating in the hallway today, a little bit stronger overall. Blood pressure 122/60 with a heart rate in the 70s today, afebrile. 97% on room air. White blood cell count 9.8, hemoglobin 7.7, platelet count 360. Sodium 139, potassium 4.3, BUN 10, creatinine 0.5. AST 103, ALT 182. Continues to be on IV diuretics. Remaining in normal sinus rhythm today. Objective - Vital Signs Vital signs: Vital Signs Temp 97.1 F L 05/09/18 12:00 Pulse 73 05/09/18 12:00 Resp 18 05/09/18 12:00 BP 122/56 05/09/18 12:00 Pulse Ox 97 05/09/18 12:00 Intake & Output 05/08/18 05/09/18 05/09/18 18:59 06:59 18:59 Intake Total 702 1260 180 Output Total 800 Balance -98 1260 180 Weight 109.9 kg 109.9 kg Intake: Intake, IV Titration 300 Amount Magnesium Sulfate-D5w Pmx 300 1 gm In Dextrose/Water 1 100ml.bag @ 100 mls/hr IVPB Q1H [facility] Rx#: [id number] Oral 702 960 180 Output: Urine 800 Other: Voiding Method Toilet Toilet Toilet # Voids 3 ABP, PAP, CO, CI - Last Documented Arterial Blood Pressure 130/45 Pulmonary Artery Pressure 27/6 Cardiac Output 6.6 Cardiac Index 3.1 - Exam PHYSICAL EXAMINATION: HEENT: Head is atraumatic, normocephalic. Pupils equal, round. Neck is supple. There is no elevated jugular venous pressure. HEART EXAMINATION: Heart sounds regular, S1 and S2 normal. No murmur or gallop heard. CHEST EXAMINATION: Lungs reveal diminished air entry bilaterally with faint bibasilar crackles. No chest wall tenderness is noted on palpation or with deep breathing. ABDOMEN: Soft, nontender. Bowel sounds are heard. No organomegaly noted. EXTREMITIES: 2+ peripheral pulses with evidence of trace peripheral edema and no calf tenderness noted. Knee high FACUNDO hose and sequential compression devices noted bilaterally. NEUROLOGIC patient is awake, alert and oriented x3. . - Labs CBC & Chem 7: 05/09/18 08:00 05/09/18 08:00 Labs: Abnormal Lab Results - Last 24 Hours (Table) 05/08/18 05/08/18 05/09/18 Range/Units 16:24 20:45 06:30 RBC (3.80-5.40) m/uL Hgb (11.4-16.0) gm/dL Hct (34.0-46.0) % Glucose (74-99) mg/dL POC Glucose (mg/dL) 131 H 145 H 119 H (75-99) mg/dL AST (14-36) U/L ALT (9-52) U/L Total Protein (6.3-8.2) g/dL Albumin (3.5-5.0) g/dL 05/09/18 05/09/18 05/09/18 Range/Units 08:00 08:00 11:05 RBC 2.75 L (3.80-5.40) m/uL Hgb 7.7 L (11.4-16.0) gm/dL Hct 24.1 L (34.0-46.0) % Glucose 115 H (74-99) mg/dL POC Glucose (mg/dL) 111 H (75-99) mg/dL AST 103 H (14-36) U/L ALT 182 H (9-52) U/L Total Protein 6.2 L (6.3-8.2) g/dL Albumin 3.3 L (3.5-5.0) g/dL Assessment and Plan Plan: Assessment: #1 status post mitral valve repair #2 volume overload, improving #3 paroxysmal atrial fibrillation, currently maintaining sinus rhythm on amiodarone 400 mg by mouth twice a day as well as metoprolol tartrate 25 mg by mouth 3 times a day. Plan From cardiology's standpoint, medications were all reviewed, we will continue current medications. Discussed anticoagulation with cardiothoracic surgery, because the patient only had 1 episode of atrial fibrillation here. Decision was made not to anticoagulate the patient at this time. DNP note has been reviewed, I agree with a documented findings and plan of care. Patient was seen and examined.
--- NOTE | 2018-05-09 15:35 | P.PN ---
Progress Note - Text Progress Note Date: 05/09/18 This is an addendum to the cardiology progress note dictated earlier today. He did have a discussion with Joanie, the Nurse Practitioner who works with cardiothoracic surgery regarding resuming xarelto, recommended by cardiology and as indicated for stroke prevention. They did give consent to initiate the Xarelto. We will resume it at 20 mg daily we will DECREASE aspirin to 81 mg daily. DNP note has been reviewed, I agree with a documented findings and plan of care. Patient was seen and examined.
--- NOTE | 2018-05-09 16:45 | P.PN ---
Subjective this is a pleasant 63 yo F with pmh of who presents with Severe mitral regurgitation, status postmitral valve annuloplasty , pt today is lying in chair , pt denies to me chest pain , no dyspnea ,no change in urine or bowel habits. pt states she is generally weak. 05/06/2018 Patient still with no dyspnea. No change in bowel habits. Cardiology team is following up the patient for chest pain. However patient still needed pain medication. Patient was seen walking the hallway with physical therapy team. She still feels generally weak. Patient might benefit from subacute rehab in the following days. 05/07/2018 Patient today heart rate went up to 160. patient found to be in A. fib with rapid ventricular rate associated with dyspnea and some chest discomfort. Cardiology recommended to start patient on amiodarone drip. Currently heart rate in 110s. 05/08/2018 Patient heart rate is better controlled today and its around 112-2113. Patient dyspnea and chest pain are resolved. Patient was placed on amiodarone orally and metoprolol. Patient was feeling sick and vomiting several times of clear liquids this morning after she took her medication, mostly from a rotation. No abdominal pain or change in mental status. Patient received symptomatic treatment. Repeat chest x-ray shows bilateral pleural effusion with venous congestion. Pulmonary team evaluation is appreciated and the recommended to continue with conservative treatment with diuretics and breathing treatment. Liver enzymes are slightly elevated but bilirubin is normal. Follow-up LFTs. Patient still anemic with hemoglobin 7.3, patient still on iron pills. 01/07/2018 Patient was lying in bed looks tired with some mild dyspnea. Abdomen pain of the surgical site. Patient also complaining of from cough which is bothering her. No phlegm. Patient currently on xarelto and aspirin. Patient is still on IV diuretics Objective - Vital Signs Vital signs: Vital Signs Temp 97.7 F 05/09/18 15:55 Pulse 75 05/09/18 15:55 Resp 18 05/09/18 15:55 BP 146/66 05/09/18 15:55 Pulse Ox 97 05/09/18 15:55 Intake & Output 05/08/18 05/09/18 05/09/18 18:59 06:59 18:59 Intake Total 702 1260 180 Output Total 800 Balance -98 1260 180 Weight 109.9 kg 109.9 kg Intake: Intake, IV Titration 300 Amount Magnesium Sulfate-D5w Pmx 300 1 gm In Dextrose/Water 1 100ml.bag @ 100 mls/hr IVPB Q1H [facility] Rx#: [id number] Oral 702 960 180 Output: Urine 800 Other: Voiding Method Toilet Toilet Toilet # Voids 3 2 ABP, PAP, CO, CI - Last Documented Arterial Blood Pressure 130/45 Pulmonary Artery Pressure 27/6 Cardiac Output 6.6 Cardiac Index 3.1 - Exam Physical exam -GENERAL: The patient is alert and oriented x3, not in any acute distress. Well developed, well nourished. however she is generally weak HEENT: Pupils are round and equally reacting to light. EOMI. No scleral icterus. No conjunctival pallor. Normocephalic, atraumatic. No pharyngeal erythema. No thyromegaly. CARDIOVASCULAR: S1 and S2 present. No murmurs, rubs, or gallops. PULMONARY: Chest is clear to auscultation, no wheezing or crackles. ABDOMEN: Soft, nontender, nondistended, normoactive bowel sounds. No palpable organomegaly. MUSCULOSKELETAL: No joint swelling or deformity. EXTREMITIES: No cyanosis, clubbing, or pedal edema. NEUROLOGICAL: Gross neurological examination did not reveal any focal deficits. SKIN: No rashes. - Labs CBC & Chem 7: 05/09/18 08:00 05/09/18 08:00 Labs: Abnormal Lab Results - Last 24 Hours (Table) 05/08/18 05/09/18 05/09/18 Range/Units 20:45 06:30 08:00 RBC (3.80-5.40) m/uL Hgb (11.4-16.0) gm/dL Hct (34.0-46.0) % Glucose 115 H (74-99) mg/dL POC Glucose (mg/dL) 145 H 119 H (75-99) mg/dL AST 103 H (14-36) U/L ALT 182 H (9-52) U/L Total Protein 6.2 L (6.3-8.2) g/dL Albumin 3.3 L (3.5-5.0) g/dL 05/09/18 05/09/18 Range/Units 08:00 11:05 RBC 2.75 L (3.80-5.40) m/uL Hgb 7.7 L (11.4-16.0) gm/dL Hct 24.1 L (34.0-46.0) % Glucose (74-99) mg/dL POC Glucose (mg/dL) 111 H (75-99) mg/dL AST (14-36) U/L ALT (9-52) U/L Total Protein (6.3-8.2) g/dL Albumin (3.5-5.0) g/dL Assessment and Plan Plan: Recommend to continue with same treatment. Continue with symptomatic treatment. Monitor lytes and vitals. Recommend use of incentive spirometry. Closely follow up with multiple consultants. GI and DVT prophylaxis. Further recommendations based on the clinical course of the patient. Prognosis is guarded Patient may benefit from subacute rehab
[2018-05-09 17:14] LABS: Glucose,Whole Blood 109 mg/dL (75-99)
[2018-05-09] MEDS ORDERED: RIVAROXABAN 20 MG TAB PO SCH (17:30)
[2018-05-09] MEDS: SENNOSIDES-DOCUSATE SODIUM 1 EACH TAB PO SCH (20:33)
[2018-05-09 21:22] LABS: Glucose,Whole Blood 119 mg/dL (75-99)
[2018-05-10] MEDS: HYDROcodone/APAP 5-325MG 1 EACH TAB PO PRN ×2 (01:35→08:53)
[2018-05-10 02:23] LABS: Glucose,Whole Blood 123 mg/dL (75-99)
[2018-05-10] MEDS: KETOROLAC 30 MG/ML 1 ML VIAL IVP SCH ×2 (03:35→10:46)
[2018-05-10] MEDS: INSULIN ASPART 100 UNIT/ML 1 ML 10 ML VIAL SQ SCH (06:33)
[2018-05-10 06:37] LABS: HCT 23.4 % (34.0-46.0); HGB 7.4 gm/dL (11.4-16.0); Hypochromasia Slight; MCH 28.6 pg (25.0-35.0); MCHC 31.7 g/dL (31.0-37.0); MCV 90.3 fL (80.0-100.0); Mean Platelet Volume 7.6; Platelet Count 371 k/uL (150-450); RBC 2.59 m/uL (3.80-5.40); RDW 14.9 % (11.5-15.5); WBC 12.7 k/uL (3.8-10.6)
[2018-05-10] MEDS: FERROUS SULFATE 325 MG TAB PO SCH (06:41)
[2018-05-10 06:53] LABS: Glucose,Whole Blood 108 mg/dL (75-99)
[2018-05-10 06:54] LABS: Anion Gap 11 mmol/L; Blood Urea Nitrogen 13 mg/dL (7-17); Calcium 8.7 mg/dL (8.4-10.2); Carbon Dioxide 24 mmol/L (22-30); Chloride 102 mmol/L (98-107); Glucose 103 mg/dL (74-99); Sodium 137 mmol/L (137-145)
[2018-05-10 07:12] LABS: Potassium 5.1 mmol/L (3.5-5.1)
[2018-05-10] MEDS: FUROSEMIDE 10 MG/ML 4 ML VIAL IV SCH (08:50)
[2018-05-10] MEDS: PANTOPRAZOLE 40 MG/10 ML VIAL IVP SCH (08:51)
[2018-05-10] MEDS: AMIODARONE 200 MG TAB PO SCH (08:51)
[2018-05-10] MEDS: METOPROLOL TARTRATE 25 MG TAB PO SCH (08:52)
[2018-05-10] MEDS ORDERED: ASPIRIN 81 MG PO SCH ×2 (09:00)
[2018-05-10] MEDS: ATORVASTATIN 40 MG TAB PO SCH (09:00)
[2018-05-10] MEDS: IPRATROPIUM-ALBUTEROL 3 ML NEB INHALATION SCH ×2 (09:03→13:16)
--- NOTE | 2018-05-10 09:31 | XR ---
EXAMINATION TYPE: XR chest 2V DATE OF EXAM: 05/10/2018 COMPARISON: 05/09/2018 TECHNIQUE: PA and lateral views submitted. HISTORY: Post cardiac surgery FINDINGS: Heart is enlarged and there is interstitial prominence with subsegmental consolidation at both lung b ases and small left effusion. No pneumothorax. Postsurgical changes are seen. IMPRESSION: 1. Bilateral consolidation and small left effusion. Correlate for underlying atelectasis or infiltrat e. CHF in the differential diagnosis. No interval change.
--- NOTE | 2018-05-10 09:46 | P.PN ---
Subjective Progress Note Date: 05/10/18 Principal diagnosis: Severe mitral valve regurgitation. Paroxysmal atrial fibrillation on Xarelto for anticoagulation status post ablation and cardioversions. History of hypertension, hyperlipidemia, rheumatoid arthritis, obesity, obstructive sleep apnea with home CPAP use, moderate COPD with preoperative FEV1 52% of predicted , anemia, gastric ulcer, MRSA, and preoperative nasal swab positive for MSSA. POD #8 mitral valve annuloplasty with 26 mm physio-2 ring, modified Mauricio maze procedure with a full left-sided lesion set including coronary sinus lesion and mitral annular attachment with cryo-probe as well as high lateral pulmonary vein ablation and proximal lesion with RF. Closure of the left atrial appendage. Postoperative atrial fibrillation, with conversion to normal sinus rhythm, an expected outcome given patient's previous medical history of paroxysmal atrial fibrillation. The patient is currently ambulating in the hallway on the cardiac stepdown unit in no acute distress. States pain is much better controlled on current pain medication regimen, does complain of shortness of breath with ambulation. No new complaints. Currently waiting insurance authorization for inpatient rehabilitation. Objective - Vital Signs Vital signs: Vital Signs Temp 97.9 F 05/10/18 08:00 Pulse 76 05/10/18 08:00 Resp 16 05/10/18 08:00 BP 136/78 05/10/18 08:00 Pulse Ox 100 05/10/18 08:00 Intake & Output 05/09/18 05/10/18 05/10/18 18:59 06:59 18:59 Intake Total 360 1970 10 Output Total 500 Balance 360 1470 10 Weight 109.9 kg 110 kg Intake: IV 50 10 Invasive Line 7 50 10 Oral 360 1920 Output: Urine 500 Other: Voiding Method Toilet Toilet Toilet # Voids 2 3 ABP, PAP, CO, CI - Last Documented Arterial Blood Pressure 130/45 Pulmonary Artery Pressure 27/6 Cardiac Output 6.6 Cardiac Index 3.1 - Constitutional General appearance: Present: cooperative, no acute distress, obese - Respiratory Details: Lungs sounds diminished bilaterally. Respirations even, nonlabored. Currently on room air with oxygen saturation 98%. Able to achieve 1000 mL on her incentive spirometry. Effective cough. - Cardiovascular Details: S1, S2 present. Regular rate and rhythm, sinus rhythm on telemetry. Palpable peripheral pulses bilaterally. No edema present. No calf pain or tenderness noted. Antiembolism stockings, SCDs present. Heart hugger in place with patient demonstrating appropriate use. - Gastrointestinal Gastrointestinal Comment(s): Abdomen soft, nontender, nondistended. Active bowel sounds 4 quadrants. Tolerating diet. Last bowel movement 05/08 per patient. - Genitourinary Genitourinary Comment(s): Continues to void clear, yellow urine. - Integumentary Integumentary Comment(s): Skin is warm and dry with evidence of good perfusion. Anterior chest incision well approximated. - Neurologic Neurologic: Present: CNII-XII intact - Musculoskeletal Musculoskeletal: Present: gait normal, strength equal bilaterally - Psychiatric Psychiatric: Present: A&O x's 3, appropriate affect, intact judgment & insight - Allied health notes Allied health notes reviewed: nursing - Labs CBC & Chem 7: 05/10/18 06:02 05/10/18 06:02 Labs: Abnormal Lab Results - Last 24 Hours (Table) 05/09/18 05/09/18 05/09/18 Range/Units 08:00 11:05 17:12 WBC (3.8-10.6) k/uL RBC (3.80-5.40) m/uL Hgb (11.4-16.0) gm/dL Hct (34.0-46.0) % Glucose 115 H (74-99) mg/dL POC Glucose (mg/dL) 111 H 109 H (75-99) mg/dL AST 103 H (14-36) U/L ALT 182 H (9-52) U/L Total Protein 6.2 L (6.3-8.2) g/dL Albumin 3.3 L (3.5-5.0) g/dL 05/09/18 05/10/18 05/10/18 Range/Units 21:20 02:13 06:02 WBC 12.7 H (3.8-10.6) k/uL RBC 2.59 L (3.80-5.40) m/uL Hgb 7.4 L (11.4-16.0) gm/dL Hct 23.4 L (34.0-46.0) % Glucose (74-99) mg/dL POC Glucose (mg/dL) 119 H 123 H (75-99) mg/dL AST (14-36) U/L ALT (9-52) U/L Total Protein (6.3-8.2) g/dL Albumin (3.5-5.0) g/dL 05/10/18 05/10/18 Range/Units 06:02 06:20 WBC (3.8-10.6) k/uL RBC (3.80-5.40) m/uL Hgb (11.4-16.0) gm/dL Hct (34.0-46.0) % Glucose 103 H (74-99) mg/dL POC Glucose (mg/dL) 108 H (75-99) mg/dL AST (14-36) U/L ALT (9-52) U/L Total Protein (6.3-8.2) g/dL Albumin (3.5-5.0) g/dL - Imaging and Cardiology Chest x-ray: report reviewed, image reviewed Assessment and Plan (1) COPD (chronic obstructive pulmonary disease) Current Visit: Yes Status: Chronic Code(s): J44.9 - CHRONIC OBSTRUCTIVE PULMONARY DISEASE, UNSPECIFIED SNOMED Code(s): 17241244 (2) Chronic anticoagulation Current Visit: No Status: Chronic Code(s): Z79.01 - NURSING HOME (CURRENT) USE OF ANTICOAGULANTS SNOMED Code(s): 913807056 (3) Obstructive sleep apnea Current Visit: Yes Status: Chronic Code(s): G47.33 - OBSTRUCTIVE SLEEP APNEA (ADULT) (PEDIATRIC) SNOMED Code(s): 44585661 (4) Mitral valve regurgitation Current Visit: Yes Status: Chronic Code(s): I34.0 - NONRHEUMATIC MITRAL ( VALVE) INSUFFICIENCY SNOMED Code(s): 28624823 (5) HTN (hypertension) Current Visit: Yes Status: Chronic Code(s): I10 - ESSENTIAL (PRIMARY) HYPERTENSION SNOMED Code(s): 05846805 (6) History of anemia Current Visit: Yes Status: Chronic Code(s): Z86.2 - PRSNL HISTORY OF DIS OF THE BLD/BLD-FORM ORG/IMMUN [facility] SNOMED Code(s): 089963449 (7) History of upper gastrointestinal bleeding Current Visit: No Status: Chronic Code(s): Z87.19 - PERSONAL HISTORY OF OTHER DISEASES OF THE DIGESTIVE SYSTEM SNOMED Code(s): 842598556 (8) Left bundle branch block Current Visit: Yes Status: Chronic Code(s): I44.7 - LEFT BUNDLE-BRANCH BLOCK , UNSPECIFIED SNOMED Code(s): 33212052 (9) Paroxysmal a-fib Current Visit: No Status: Resolved Code(s): I48.0 - PAROXYSMAL ATRIAL FIBRILLATION SNOMED Code(s): 301219723 (10) Rheumatoid arthritis Current Visit: Yes Status: Chronic Code(s): M06.9 - RHEUMATOID ARTHRITIS, UNSPECIFIED SNOMED Code(s): 29463861 Plan: 1. Continue low-dose aspirin, statin, beta miguel angel. 2. Continue amiodarone for A. fib prophylaxis. Xarelto added back into patient 's regimen per cardiology. 3. Encourage incentive spirometry use 10 times every hour while awake. 4. Increase activity, ambulate as tolerated. PT/OT/cardiac rehab following. 5. Continue Lasix 40 mg IV push every 12 hours. Will transition to oral Lasix upon discharge. Replace electrolytes per protocol. 6. Will monitor daily labs and x-rays. Continue oral iron her patient's home dose. No need for blood transfusion. 7. Bronchodilators per pulmonology. Continue Mucinex PRN. 8. Pain control with current medication regimen. 9. Diabetic management per primary care service. 10. GI prophylaxis with Protonix, DVT prophylaxis with subcu heparin, SCDs. 11. Medical management of other comorbidities per primary care service. 12. Will discharge to inpatient rehab today if insurance authorization obtained. Otherwise will discharge to home with home care and home physical therapy. 13. More recommendations to follow. Time with Patient: Greater than 30
--- NOTE | 2018-05-10 11:07 | P.DS ---
Providers Date of admission: 05/02/18 05:34 Expected date of discharge: 05/10/18 Attending physician: Torrey Horowitz Consults: 05/02/18 12:03 Consult Physician Routine Consulting Provider: Soheila Tipton Consult Reason/Comments: Industrial Maintenance Technician Consult: post cardiac surgery Do you want consulting provider notified?: Yes Consult Physician Routine Consulting Provider: Caro Victor Consult Reason/Comments: Solar Sales Specialist Consult: post cardiac surgery Do you want consulting provider notified?: Yes Consult Physician Routine Consulting Provider: Anna Fajardo Consult Reason/Comments: medical management Do you want consulting provider notified?: Yes 05/06/18 09:10 Consult Physician Routine Consulting Provider: Bryan Trevino Consult Reason/Comments: Evaluate for inpatient rehab placement Do you want consulting provider notified?: Yes Primary care physician: Jewel Santiago - Discharge Diagnosis(es) (1) COPD (chronic obstructive pulmonary disease) Current Visit: Yes Status: Chronic (2) Chronic anticoagulation Current Visit: No Status: Chronic (3) Obstructive sleep apnea Current Visit: Yes Status: Chronic (4) Mitral valve regurgitation Current Visit: Yes Status: Chronic (5) HTN (hypertension) Current Visit: Yes Status: Chronic (6) History of anemia Current Visit: Yes Status: Chronic (7) History of upper gastrointestinal bleeding Current Visit: No Status: Chronic (8) Left bundle branch block Current Visit: Yes Status: Chronic (9) Paroxysmal a-fib Current Visit: No Status: Resolved (10) Rheumatoid arthritis Current Visit: Yes Status: Chronic Hospital Course: FINAL DIAGNOSIS: 1. Severe mitral valve regurgitation 2. Paroxysmal atrial fibrillation and Xarelto for anticoagulation status post ablation and cardioversions 3. Hypertension 4. Hyperlipidemia 5. Rheumatoid arthritis 6. Obesity 7. Obstructive sleep apnea with home CPAP use 8. Moderate COPD with preoperative FEV1 52% of predicted 9. Anemia 10. History of gastric ulcer 11. History of MRSA 12. Preoperative nasal swab positive for MSSA 13. Postoperative atrial fibrillation, with conversion to normal sinus rhythm, an expected outcome given patient's previous medical history of paroxysmal atrial fibrillation PRINCIPAL PROCEDURE: 1. Mitral valve annuloplasty with 26 mm physio-2 ring 2. Modified Mauricio maze procedure with a full left-sided lesion set including coronary sinus lesion and mitral annular attachment was cryo-probe as well as high lateral pulmonary vein ablation and proximal lesion with RF 3. Closure of the left atrial appendage HISTORY OF PRESENT ILLNESS: This is a 63-year-old female patient follows with Dr. Santiago on an outpatient basis. She had a previous admission in March 2018 at [facility] for anemia with a large ulcer in the antrum of her stomach. She was discharged to home on oral iron. She presented to [facility] on 04/24/2018 with complaints of progressive shortness of breath, dizziness, diaphoresis, and chest pain along with associated nausea and vomiting. Her 12-lead EKG demonstrated new left bundle branch block pattern, however her troponins were negative. She was taken for urgent cardiac catheterization, however her coronary arteries were without significant disease. There was 4+ mitral valve regurgitation. A 2-D echocardiogram was completed demonstrating normal LV size and function with an ejection fraction 55-6%, mild mitral valve regurgitation, and trace tricuspid valve regurgitation. Subsequently a transesophageal echocardiogram was completed demonstrating mild thickening of the mitral valve leaflets with no significant prolapse and severe central mitral valve regurgitation and mild to moderate tricuspid valve regurgitation with severe pulmonary hypertension. The patient was referred to Dr. Horowitz from cardiothoracic surgery. She was recommended to undergo mitral valve repair with modified Mauricio maze. The normal perioperative course was explained in detail to the patient, all risks and benefits were explained, all questions were answered, and consent was obtained to proceed with surgery. The patient was discharged to home to come back in as an outpatient. HOSPITAL COURSE: The patient was brought to the hospital on 05/02/2018, taken to the preoperative area, prepared in the usual fashion, and subsequently taken to the operating room where Dr. Horowitz performed mitral valve annuloplasty with 26 mm physio-2 ring, modified Mauricio maze procedure with a full left-sided lesion set including coronary sinus lesion and mitral annular attachment was cryo- probe as well as high lateral pulmonary vein ablation and proximal lesion with RF, and closure of the left atrial appendage. Upon completion of surgery the patient was transferred to the cardiovascular intensive care unit where she was recovered, monitored hemodynamically, and where she progressed to cardiac rehabilitation phase 1. She was extubated, all lines, tubes, and drips were discontinued when appropriate, and she was transferred to the cardiac stepdown unit for further monitoring and rehabilitation. She did go into paroxysmal atrial fibrillation which was converted with amiodarone. Her oxygen was titrated down, she continued to work with physical and occupational therapy, she was tolerating oral diet, her pain was controlled, and she was ready to be discharged to inpatient rehab on postoperative day #8. She received written and verbal instruction regarding her medications, activity restrictions, signs and symptoms requiring physician notification, and follow-up appointments. COMPLICATIONS: The patient experienced no postoperative complications. Patient Condition at Discharge: Stable Plan - Discharge Summary Discharge Rx Participant: Yes New Discharge Prescriptions: New Acetaminophen Tab [Tylenol] 650 mg PO Q4HR PRN tab PRN Reason: Fever and/ or Mild Pain Amiodarone [Cordarone] 400 mg PO BID tab Aspirin 81 mg PO DAILY chew Atorvastatin [Lipitor] 40 mg PO DAILY tab Ferrous Sulfate [Iron (65 MG Elemental)] 325 mg PO TID-W/MEALS tab guaiFENesin [Mucinex] 600 mg PO Q12HR PRN tablet.er PRN Reason: Cough HYDROcodone/APAP 5-325MG [[place] 5-325] 1 each PO Q6HR PRN tab PRN Reason: Moderate Pain Ipratropium-Albuterol Nebulize [Duoneb 0.5 mg-3 mg/3 ml Soln] 3 ml INHALATION RT-QID ampul.neb Ipratropium-Albuterol Nebulize [Duoneb 0.5 mg-3 mg/3 ml Soln] 3 ml INHALATION RT-Q2H PRN ampul.neb PRN Reason: Shortness Of Breath Or Wheezing Magnesium Hydroxide [Milk of Magnesia Concentrate] 2,400 mg PO BID PRN ml PRN Reason: Constipation Metoprolol Tartrate [Lopressor] 25 mg PO TID tab Pantoprazole [Protonix] 40 mg PO AC-BID tablet.dr Lama-Docusate Sodium [Senokot-S] 2 each PO HS tab Continue Rivaroxaban [Xarelto] 20 mg PO HS Furosemide [Lasix] 40 mg PO BID #0 Potassium Chloride [Klor-Con 20] 20 meq PO BID #0 Discontinued Lisinopril [Zestril] 5 mg PO DAILY #30 tab Metoprolol Tartrate 25 mg PO BID #30 tab Flecainide Acetate [Tambocor] 100 mg PO Q12HR Ferrous Sulfate [Iron] 325 mg PO BID Omeprazole Magnesium [PriLOSEC OTC] 20 mg PO BID Desenex 2% Cream 1 applic TOPICAL BID Mupirocin 2% Oint [Bactroban 2% Oint] 1 applic TOPICAL DIRECTED Discharge Medication List Rivaroxaban [Xarelto] 20 mg PO HS 02/16/15 [History] Furosemide [Lasix] 40 mg PO BID #0 04/26/18 [Rx] Potassium Chloride [Klor-Con 20] 20 meq PO BID #0 04/26/18 [Rx] Acetaminophen Tab [Tylenol] 650 mg PO Q4HR PRN tab 05/10/18 [Rx] Amiodarone [Cordarone] 400 mg PO BID tab 05/10/18 [Rx] Aspirin 81 mg PO DAILY chew 05/10/18 [Rx] Atorvastatin [Lipitor] 40 mg PO DAILY tab 05/10/18 [Rx] Ferrous Sulfate [Iron (65 MG Elemental)] 325 mg PO TID-W/MEALS tab 05/10/18 [Rx ] HYDROcodone/APAP 5-325MG [[place] 5-325] 1 each PO Q6HR PRN tab 05/10/18 [Rx] Ipratropium-Albuterol Nebulize [Duoneb 0.5 mg-3 mg/3 ml Soln] 3 ml INHALATION RT -Q2H PRN ampul.neb 05/10/18 [Rx] Ipratropium-Albuterol Nebulize [Duoneb 0.5 mg-3 mg/3 ml Soln] 3 ml INHALATION RT -QID ampul.neb 05/10/18 [Rx] Magnesium Hydroxide [Milk of Magnesia Concentrate] 2,400 mg PO BID PRN ml 05/10 [Rx] Metoprolol Tartrate [Lopressor] 25 mg PO TID tab 05/10/18 [Rx] Pantoprazole [Protonix] 40 mg PO AC-BID tablet.dr 05/10/18 [Rx] Sennosides-Docusate Sodium [Senokot-S] 2 each PO HS tab 05/10/18 [Rx] guaiFENesin [Mucinex] 600 mg PO Q12HR PRN tablet.er 05/10/18 [Rx] Follow up Appointment(s)/Referral(s): Caro Victor MD [STAFF PHYSICIAN] - 05/22/18 2:15 pm Jewel Santiago MD [Primary Care Provider] - 1 Week (Please call for appointment once discharged from inpatient rehab.) Torrey Horowitz MD [STAFF PHYSICIAN] - 05/31/18 1:00 pm Judi Gray MD [STAFF PHYSICIAN] - 05/21/18 9:30 am Activity/Diet/Wound Care/Special Instructions: CONSULTS AT [facility] INPATIENT REHAB: Dr. Victor for cardiology Dr. Gray for pulmonology Labs to be drawn at [facility] I[facility]: CBC and CMP on day #2, then per protocol, ran as STAT, results faxed to DISCHARGE INSTRUCTIONS: 1. No driving for 4 weeks, or until physician gives their ok. 2. The patient should sleep in their own bed, no medical bed needed. 3. Stairs are not an issue. If the bedroom is upstairs, it is advised that the patient go up at night and down in the morning for the first week. Go slowly, using handrail and take 1 step at a time. 4. FACUNDO hose are to be worn for 30 days or until physician discontinues. 5. Heart hugger is to be worn 100% of the time until physician discontinues.( except when showering) 6. No lifting, pushing, or pulling more than 10 pounds for 12 weeks. The physician will advise of any restriction changes. 7. The patient is expected to continue the prescribed walking program. 8. Continue pain control per as needed orders. 9. Continue with incentive spirometry and splinting/heart hugger until otherwise directed by the physician. 10. Must shower daily using liquid antibacterial soap and a separate white washcloth for each individual incision. 11. Routine sternal incision care. No powders, lotions, ointments on incisions. 12. Please call surgeon/CRIME PREVENTION WORKER for temp greater than 101 F or purulent drainage from incisions. 13. Narcotic medications were discussed with the patient, including the potential for misuse, addiction, and abuse. Opiod Start Talking form was reviewed with the patient. 14. All prescriptions given by surgeon for 30 days. Refills need to be filled through geological manager/primary care physician. 15. A Red armband has been placed on the patient. It should be worn for 30 days post surgery and will be removed by the cardiac surgeons. If an ER visit is necessary, please make sure the number on the Red armband is called. REHAB/HOME HEALTH SERVICES TO PROVIDE: RN SKILLED HOME CARE SERVICES FOR POST-OP SURGICAL PATIENTS WITH THE FOLLOWING: Mitral Valve Repair ( [facility]) RN TO CONTINUE EDUCATION FROM ``ROAD TO A HEALTH HEART PATIENT EDUCATION MANUAL (GIVEN TO PATIENT IN THE HOSPITAL) MEDICATION RECONCILIATION WITH EDUCATION NEEDED ON FIRST HOME VISIT EMPHASIZE IMPORTANCE OF WEARING BREAST SUPPORT/HEART HUGGER ENCOURAGE USE OF INCENTIVE SPIROMETER 10 X EVERY HOUR WHILE AWAKE ENCOURAGE UTILIZATION OF LOWER EXTREMITY COMPRESSION STOCKINGS/FACUNDO HOSE and ELEVATE LEGS ABOVE LEVEL OF HEART WHILE AT REST. ENCOURAGE AMBULATION 3-5x/day INCREASING TOLERATES, WHILE AVOID EXTREMES IN TEMPERATURE FREQUENCY: RN TO OPEN THE PATIENT WITHIN 24 HOURS OF DISCHARGE FROM THE HOSPITAL WITH TELEHEALTH INSTALLED AT [facility] [place] RN TO VISIT 2-3 X A WEEK FOR 4 WEEKS ESTABLISHED BY PATIENT NEEDS. TELEHEALTH PARAMETERS: WEIGHT: NOTIFY MD OF WEIGHT GAIN OF 2 LBS IN 24 HOURS OR 5 LBS IN ONE WEEK HR: NOTIFY MD OF HR <55 BPM OR HR>100 BPM BP: NOTIFY MD IF BP <90/55 OR BP>140/100 O2 SAT: NOTIFY MD IF PO2<93% ON ROOM AIR SEND TELEHEALTH REPORT TO DISPENSING OPTICIAN AND CARDIOVASCULAR SURGEON THE FIRST WEEK OF CARE AND THEN BI-WEEKLY. PLEASE ADDITIONALLY COMMUNICATE ANY ABNORMALS AND NEW FINDINGS TO THE SURGEONS OFFICE. Discharge Disposition: DC/TRNS INTERMEDIATE CARE FAC
[2018-05-10 11:09] VITALS: BP 138/72; PULSE 80; RESP 18; TEMP 97.8
[2018-05-10 11:51] LABS: Glucose,Whole Blood 137 mg/dL (75-99)
[2018-05-10] MEDS ORDERED: ATORVASTATIN 40 MG TAB PO SCH (12:00)
--- NOTE | 2018-05-10 13:06 | P.PN ---
Subjective Progress Note Date: 05/10/18 Principal diagnosis: Severe mitral regurgitation, status post mitral valve repair, modified maze, postop day #5 This is a 63-year-old female whom I saw on consultation yesterday, patient is postoperative day #1, mitral valve annuloplasty with 26 mm physio2 ring, modified Mauricio maze procedure bilateral pulmonary vein ablation and proximal lesion with RF. Patient has multiple medical problems which were listed in my consultation, she was extubated around 21:30 PM. Tolerated the extubation well , presently sitting in a bedside chair, in no form of respiratory distress. No specific complaints. She is hemodynamically stable, not requiring any pressors or inotropes. Chest x-ray is reassuring. Reevaluated today on 05/04/2018, patient is postoperative day #2. Overall the patient is doing great, chest x-ray is showing some left lower lobe atelectasis and small left pleural effusion. However patient is asymptomatic, denies any shortness of breath, no cough, no wheezing. Labs were reviewed she had a relatively normal basic metabolic profile, normal CBC hemoglobin is 7.2 however. Reevaluated today on 05/05/2018, patient is postoperative day #3. Continues to do well, chest x-ray continues to show some left basilar atelectasis, patient remains relatively asymptomatic. Denies any shortness of breath, no cough, no wheezing, her chest tubes were removed yesterday. O2 saturation is 94% on 2 L nasal cannula. Achieving about 1000 mL via incentive spirometry. Reevaluated today on 05/06/2018, postoperative day #4 patient is on selective care, continues to do relatively well, in no distress, denies any cough wheezing or shortness of breath, she does have some dyspnea on exertion. Ambulating in the hallway with assistance. Her O2 saturation is 96% on 2 L. Continues to do well with incentive spirometry, improving slowly but steadily. On 05/07/2018 patient seen in follow-up on selective care unit. She is having a midline IV catheter placed by [facility] staff. She some shortness of breath, today's chest x-ray has been reviewed by by Dr. Fuller, showed interval development of basilar airspace disease versus atelectasis and possible pleural effusion. Case was discussed with the CT surgery, and patient was placed on IV diuretics of 40 mg every 8 hours. Continues on nebulized bronchodilators, she is working on her incentive spirometer, she is able to achieve 1000 mL on the today. Patient has been ambulating, with assistance, and tolerating reasonably well. Pulse ox on 3 L per nasal cannula is 96%. On 05/08/2018 patient seen in follow-up on selective care unit. Yesterday patient went into A. fib, she was started on amiodarone drip. Metoprolol is currently 25 mg 3 times daily. se converted out of A. fib. Denies any shortness of breath, denies any chest pain. She is afebrile, hemodynamically stable, room air pulse ox is 98%, today's chest x-ray shows bilateral pleural effusions, and mild central venous congestion, consistent with fluid overload. Patient continues on IV Lasix at 40 mg every 12 hours, she is in -1270 mL fluid balance over the last 24 hours. She has been tolerating ambulation. She is compliant with her incentive spirometer. On 05/09/2018 patient was seen again in follow-up on selective care unit. She is awake and alert, although is generally weak. She is on room air, pulse ox is 97%. Lung sounds are essentially clear to auscultation. She is working on her incentive spirometer. Patient is awaiting insurance authorization for inpatient rehab. Denies any difficulty breathing, today's chest x-ray has been reviewed, and shows findings consistent with volume overload, pulmonary venous hypertension, and interstitial edema. Basilar atelectasis versus edema, versus small effusions. He remains on IV diuretics, and she is in -1270 mL fluid balance over the last 24 hours. On 05/10/2018 patient seen in follow-up on selective care unit. She is sitting up in the chair, in no acute distress, room air pulse ox is 96%, vital signs are stable, she is afebrile. Does get short of breath with exertion, she has been ambulating, tolerating activity well. Today's chest x-ray has been reviewed and showed small left pleural effusion, and atelectasis at the bases. Labs have been reviewed, WBC is 12.7, hemoglobin is 7.4, electrodes and renal profile all within normal limits. Patient is being discharged to inpatient rehab today, clear for discharge from pulmonary perspective. Objective - Vital Signs Vital signs: Vital Signs Temp 97.8 F 05/10/18 11:09 Pulse 80 05/10/18 11:10 Resp 18 05/10/18 11:10 BP 138/72 05/10/18 11:09 Pulse Ox 96 05/10/18 11:09 Intake & Output 05/09/18 05/10/18 05/10/18 18:59 06:59 18:59 Intake Total 360 1970 370 Output Total 500 600 Balance 360 1470 -230 Weight 109.9 kg 110 kg 110 kg Intake: IV 50 10 Invasive Line 7 50 10 Oral 360 1920 360 Output: Urine 500 600 Other: Voiding Method Toilet Toilet Toilet # Voids 2 3 1 ABP, PAP, CO, CI - Last Documented Arterial Blood Pressure 130/45 Pulmonary Artery Pressure 27/6 Cardiac Output 6.6 Cardiac Index 3.1 - Exam Physical Exam: Revealed a 63-year-old female, obese, in no acute distress Head: Atraumatic, normocephalic. HEENT:[Neck is supple.] [No neck masses.] [No thyromegaly.] [No JVD.] Chest: Diminished breath sounds bilaterally, no crackles, no rhonchi, no wheezes. Cardiac Exam: [Normal S1 and S2, no S3 gallop, no murmur.] Abdomen: [Obese, Soft, nontender, no megaly, no rebound, no guarding, normal bowel sounds.] Extremities: Knee high FACUNDO hose and sequential compression devices noted in place in both lower extremities. Neurological Exam: [No focal neurologic deficit.] Psychiatric: Blunt affect, normal mood, normal mental status exam. Lymphatics: No lymphadenopathy. - Labs CBC & Chem 7: 05/10/18 06:02 05/10/18 06:02 Labs: Abnormal Lab Results - Last 24 Hours (Table) 05/09/18 05/09/18 05/10/18 Range/Units 17:12 21:20 02:13 WBC (3.8-10.6) k/uL RBC (3.80-5.40) m/uL Hgb (11.4-16.0) gm/dL Hct (34.0-46.0) % Glucose (74-99) mg/dL POC Glucose (mg/dL) 109 H 119 H 123 H (75-99) mg/dL 10/05/10/18 05/10/18 Range/Units 06:02 06:02 06:20 WBC 12.7 H (3.8-10.6) k/uL RBC 2.59 L (3.80-5.40) m/uL Hgb 7.4 L (11.4-16.0) gm/dL Hct 23.4 L (34.0-46.0) % Glucose 103 H (74-99) mg/dL POC Glucose (mg/dL) 108 H (75-99) mg/dL 05/10/18 Range/Units 11:49 WBC (3.8-10.6) k/uL RBC (3.80-5.40) m/uL Hgb (11.4-16.0) gm/dL Hct (34.0-46.0) % Glucose (74-99) mg/dL POC Glucose (mg/dL) 137 H (75-99) mg/dL Assessment and Plan Plan: Assessment: #1. Severe mitral regurgitation, status post mitral valve repair modified Maze , postop day 9 #2. Atrial fibrillation, with rapid ventricular response #3. Routine postoperative ventilator management, uneventful #4. Postop blood loss anemia, an expected outcomes of surgery #5 History of atrial fibrillation, post-ablation #6. Rheumatoid arthritis #7. Hypertension #8. Recent hospitalization for pulmonary edema #9. Obstructive sleep apnea, on CPAP therapy #10. Liver lesion possibly hemangioma #11. History of GI bleeding, history of antral ulcer #12. postoperative atelectasis involving the left side, expected post surgery. Chest x-ray from 05/06/2018 was reviewed, basically is unchanged, continues to show some atelectasis and maybe a small pleural effusion on the left base. Plan: Patient remains stable, vital signs are stable, patient has been ambulating, does have exertional dyspnea, teen encouraging deep breathing and coughing, and incentive spirometry use. Patient has been diuresed, and will be transitioned to oral Lasix. Continue with nebulized bronchodilators. From pulmonary perspective patient is stable for transfer to inpatient rehab today I performed a history & physical examination of the patient and discussed their management with my nurse practitioner, Melly Murrell. I reviewed the nurse practitioner's note and agree with the documented findings and plan of care. Lung sounds are clear. The findings and the impression was discussed with the patient. I attest to the documentation by the nurse practitioner. Time with Patient: Less than 30
--- NOTE | 2018-05-10 14:18 | P.PN ---
Subjective Progress Note Date: 05/10/18 This is a pleasant 63-year-old female who is status post mitral valve repair with mitral valve annuloplasty and modified maze procedure. She was seen and examined on the telemetry unit today, awake and alert. She has been up ambulating in the hallway today, a little bit stronger overall. Blood pressure 122/60 with a heart rate in the 70s today, afebrile. 97% on room air. White blood cell count 9.8, hemoglobin 7.7, platelet count 360. Sodium 139, potassium 4.3, BUN 10, creatinine 0.5. AST 103, ALT 182. Continues to be on IV diuretics. Remaining in normal sinus rhythm today. 05/10/2018 Patient was seen and examined this morning, overall feeling better today. Being transferred to rehab today. Objective - Vital Signs Vital signs: Vital Signs Temp 97.8 F 05/10/18 11:09 Pulse 80 05/10/18 11:10 Resp 18 05/10/18 11:10 BP 138/72 05/10/18 11:09 Pulse Ox 96 05/10/18 11:09 Intake & Output 05/09/18 05/10/18 05/10/18 18:59 06:59 18:59 Intake Total 360 1970 370 Output Total 500 600 Balance 360 1470 -230 Weight 109.9 kg 110 kg 110 kg Intake: IV 50 10 Invasive Line 7 50 10 Oral 360 1920 360 Output: Urine 500 600 Other: Voiding Method Toilet Toilet Toilet # Voids 2 3 1 ABP, PAP, CO, CI - Last Documented Arterial Blood Pressure 130/45 Pulmonary Artery Pressure 27/6 Cardiac Output 6.6 Cardiac Index 3.1 - Exam PHYSICAL EXAMINATION: HEENT: Head is atraumatic, normocephalic. Pupils equal, round. Neck is supple. There is no elevated jugular venous pressure. HEART EXAMINATION: Heart sounds regular, S1 and S2 normal. No murmur or gallop heard. CHEST EXAMINATION: Lungs reveal diminished air entry bilaterally with faint bibasilar crackles. No chest wall tenderness is noted on palpation or with deep breathing. ABDOMEN: Soft, nontender. Bowel sounds are heard. No organomegaly noted. EXTREMITIES: 2+ peripheral pulses with evidence of trace peripheral edema and no calf tenderness noted. Knee high FACUNDO hose and sequential compression devices noted bilaterally. NEUROLOGIC patient is awake, alert and oriented x3. . - Labs CBC & Chem 7: 05/10/18 06:02 05/10/18 06:02 Labs: Abnormal Lab Results - Last 24 Hours (Table) 05/09/18 05/09/18 05/10/18 Range/Units 17:12 21:20 02:13 WBC (3.8-10.6) k/uL RBC (3.80-5.40) m/uL Hgb (11.4-16.0) gm/dL Hct (34.0-46.0) % Glucose (74-99) mg/dL POC Glucose (mg/dL) 109 H 119 H 123 H (75-99) mg/dL 05/10/18 05/10/18 05/10/18 Range/Units 06:02 06:02 06:20 WBC 12.7 H (3.8-10.6) k/uL RBC 2.59 L (3.80-5.40) m/uL Hgb 7.4 L (11.4-16.0) gm/dL Hct 23.4 L (34.0-46.0) % Glucose 103 H (74-99) mg/dL POC Glucose (mg/dL) 108 H (75-99) mg/dL 05/10/18 Range/Units 11:49 WBC (3.8-10.6) k/uL RBC (3.80-5.40) m/uL Hgb (11.4-16.0) gm/dL Hct (34.0-46.0) % Glucose (74-99) mg/dL POC Glucose (mg/dL) 137 H (75-99) mg/dL Assessment and Plan Plan: Assessment: #1 status post mitral valve repair #2 volume overload, improving #3 paroxysmal atrial fibrillation, currently maintaining sinus rhythm on amiodarone 400 mg by mouth twice a day as well as metoprolol tartrate 25 mg by mouth 3 times a day. Plan From cardiology's standpoint, medications were all reviewed, we will continue current medications. Anticoagulation was resumed yesterday. Going to rehab today. DNP note has been reviewed, I agree with a documented findings and plan of care. Patient was seen and examined.
[2018-05-10] MEDS ORDERED: PANTOPRAZOLE 40 MG TABLET PO SCH (17:30)
--- NOTE | 2018-05-10 21:43 | P.PN ---
Subjective this is a pleasant 63 yo F with pmh of who presents with Severe mitral regurgitation, status postmitral valve annuloplasty , pt today is lying in chair , pt denies to me chest pain , no dyspnea ,no change in urine or bowel habits. pt states she is generally weak. 05/06/2018 Patient still with no dyspnea. No change in bowel habits. Cardiology team is following up the patient for chest pain. However patient still needed pain medication. Patient was seen walking the hallway with physical therapy team. She still feels generally weak. Patient might benefit from subacute rehab in the following days. 05/07/2018 Patient today heart rate went up to 160. patient found to be in A. fib with rapid ventricular rate associated with dyspnea and some chest discomfort. Cardiology recommended to start patient on amiodarone drip. Currently heart rate in 110s. 05/08/2018 Patient heart rate is better controlled today and its around 112-2113. Patient dyspnea and chest pain are resolved. Patient was placed on amiodarone orally and metoprolol. Patient was feeling sick and vomiting several times of clear liquids this morning after she took her medication, mostly from a rotation. No abdominal pain or change in mental status. Patient received symptomatic treatment. Repeat chest x-ray shows bilateral pleural effusion with venous congestion. Pulmonary team evaluation is appreciated and the recommended to continue with conservative treatment with diuretics and breathing treatment. Liver enzymes are slightly elevated but bilirubin is normal. Follow-up LFTs. Patient still anemic with hemoglobin 7.3, patient still on iron pills. 05/09/2018 Patient was lying in bed looks tired with some mild dyspnea. Abdomen pain of the surgical site. Patient also complaining of from cough which is bothering her. No phlegm. Patient currently on xarelto and aspirin. Patient is still on IV diuretics 05/10/18 pt was found sitting in chair today , feeling much better today and even she told me she is ready to be transferred today , pt is going to be discharge by the primary team today to [facility] for rehab. no chest ,no dyspnea, no fever. Objective - Vital Signs Vital signs: Vital Signs Temp 97.8 F 05/10/18 11:09 Pulse 80 05/10/18 11:10 Resp 18 05/10/18 11:10 BP 138/72 05/10/18 11:09 Pulse Ox 96 05/10/18 11:09 Intake & Output 05/10/18 05/10/18 05/11/18 06:59 18:59 06:59 Intake Total 1970 370 Output Total 500 600 Balance 1470 -230 Weight 110 kg 110 kg Intake: IV 50 10 Invasive Line 7 50 10 Oral 1920 360 Output: Urine 500 600 Other: Voiding Method Toilet Toilet # Voids 3 1 ABP, PAP, CO, CI - Last Documented Arterial Blood Pressure 130/45 Pulmonary Artery Pressure 27/6 Cardiac Output 6.6 Cardiac Index 3.1 - Exam Physical exam -GENERAL: The patient is alert and oriented x3, not in any acute distress. Well developed, well nourished. however she is generally weak HEENT: Pupils are round and equally reacting to light. EOMI. No scleral icterus. No conjunctival pallor. Normocephalic, atraumatic. No pharyngeal erythema. No thyromegaly. CARDIOVASCULAR: S1 and S2 present. No murmurs, rubs, or gallops. PULMONARY: Chest is clear to auscultation, no wheezing or crackles. ABDOMEN: Soft, nontender, nondistended, normoactive bowel sounds. No palpable organomegaly. MUSCULOSKELETAL: No joint swelling or deformity. EXTREMITIES: No cyanosis, clubbing, or pedal edema. NEUROLOGICAL: Gross neurological examination did not reveal any focal deficits. SKIN: No rashes. - Labs CBC & Chem 7: 05/10/18 06:02 05/10/18 06:02 Labs: Abnormal Lab Results - Last 24 Hours (Table) 05/10/18 05/10/18 05/10/18 Range/Units 02:13 06:02 06:02 WBC 12.7 H (3.8-10.6) k/uL RBC 2.59 L (3.80-5.40) m/uL Hgb 7.4 L (11.4-16.0) gm/dL Hct 23.4 L (34.0-46.0) % Glucose 103 H (74-99) mg/dL POC Glucose (mg/dL) 123 H (75-99) mg/dL 05/10/18 05/10/18 Range/Units 06:20 11:49 WBC (3.8-10.6) k/uL RBC (3.80-5.40) m/uL Hgb (11.4-16.0) gm/dL Hct (34.0-46.0) % Glucose (74-99) mg/dL POC Glucose (mg/dL) 108 H 137 H (75-99) mg/dL Assessment and Plan Assessment: Status post mitral valve annuloplasty for mitral regurgitation with paroxysmal atrial fibrillation Generalized weakness History of GI bleed Essential hypertension History of rheumatoid arthritis History of sleep apnea History of recent antral ulcer and anemia Surgery of coronary artery disease status post cardiac cath Obesity with body mass index of 41 Plan: Recommend to continue with same treatment. Continue with symptomatic treatment. Monitor lytes and vitals. Recommend use of incentive spirometry. Closely follow up with multiple consultants. GI and DVT prophylaxis. Further recommendations based on the clinical course of the patient. Prognosis is guarded Patient may benefit from subacute rehab
== END 2018-05-10 12:08 | DRG 220 ==
LOC: 2ORMAIN 05:34 → 6ICU 12:19 → 6SEL 05-05 18:54 → 3SCARD 05-06 10:21 → 6SEL 05-06 10:21 → 3SCARD 05-07 16:03
PROVIDERS: ADMIT Thoracic Surgery (Cardiothoracic Vascular Surgery); ATTEND Thoracic Surgery (Cardiothoracic Vascular Surgery)
PROC: 02L70ZK Occlusion of Left Atrial Appendage, Open Approach (ICD-10-PCS; 2018-05-02)
PROC: 5A1221Z Performance of Cardiac Output, Continuous (ICD-10-PCS; 2018-05-02)
PROC: B245ZZ4 Ultrasonography of Left Heart, Transesophageal (ICD-10-PCS; 2018-05-02)
PROC: 30233N0 Transfusion of Autologous Red Blood Cells into Peripheral Vein, Percutaneous Approach (ICD-10-PCS; 2018-05-02)
PROC: 0D9670Z Drainage of Stomach with Drainage Device, Via Natural or Artificial Opening (ICD-10-PCS; 2018-05-02)
PROC: 02UG0JZ Supplement Mitral Valve with Synthetic Substitute, Open Approach (ICD-10-PCS; principal; 2018-05-02 08:00)
PROC: 02580ZZ Destruction of Conduction Mechanism, Open Approach (ICD-10-PCS; 2018-05-02 08:00)
PROC: 025 Heart and Great Vessels, Destruction (ICD-10-PCS; 2018-05-02 08:00)
DX: I08.1 Rheumatic disorders of both mitral and tricuspid valves (principal); Z68.41 Body mass index [BMI] 40.0-44.9, adult; D62 Acute posthemorrhagic anemia; J98.11 Atelectasis; I11.0 Hypertensive heart disease with heart failure; I50.9 Heart failure, unspecified; I27.20 Pulmonary hypertension, unspecified; I48.0 Paroxysmal atrial fibrillation; E66.9 Obesity, unspecified; I44.7 Left bundle-branch block, unspecified; I25.10 Atherosclerotic heart disease of native coronary artery without angina pectoris; M06.9 Rheumatoid arthritis, unspecified; G47.33 Obstructive sleep apnea (adult) (pediatric); J44.9 Chronic obstructive pulmonary disease, unspecified; E78.5 Hyperlipidemia, unspecified; D18.09 Hemangioma of other sites; M19.91 Primary osteoarthritis, unspecified site; Z79.01 Long term (current) use of anticoagulants; Z79.899 Other long term (current) drug therapy; Z86.14 Personal history of Methicillin resistant Staphylococcus aureus infection; Z87.11 Personal history of peptic ulcer disease; Z90.49 Acquired absence of other specified parts of digestive tract; Z90.710 Acquired absence of both cervix and uterus; Z98.51 Tubal ligation status; Z96.651 Presence of right artificial knee joint; Z87.19 Personal history of other diseases of the digestive system; Z82.49 Family history of ischemic heart disease and other diseases of the circulatory system; Z83.3 Family history of diabetes mellitus; Z81.2 Family history of tobacco abuse and dependence
CPT/HCPCS: 36569; 71045; 71046; 76937; 80048; 80053; 82330; 82805; 83036; 83735; 84132; 85025; 85027; 85520; 85610; 85730; 86850; 86891; 86900; 86901; 86920; 94002; 94640; 94760

== ENCOUNTER 2018-05-23 11:06 | Day surgery (SDC) | payer BC ==
[2018-05-23 12:03] LABS: Basophils % (A) 0 %; Eosinophils # (A) 0.2 k/uL (0-0.7); Eosinophils % (A) 2 %; HGB 10.3 gm/dL (11.4-16.0); Hypochromasia Marked; Lymphocytes # (A) 1.7 k/uL (1.0-4.8); Lymphocytes % (A) 20 %; MCH 28.4 pg (25.0-35.0); MCHC 31.3 g/dL (31.0-37.0); MCV 90.7 fL (80.0-100.0); Mean Platelet Volume 7.5; Monocytes # (A) 0.6 k/uL (0-1.0); Monocytes % (A) 7 %; Neutrophils # (A) 5.8 k/uL (1.3-7.7); Neutrophils % (A) 70 %; Platelet Count 472 k/uL (150-450); Poikilocytosis Slight; RBC 3.64 m/uL (3.80-5.40); WBC 8.4 k/uL (3.8-10.6)
--- NOTE | 2018-05-23 13:12 | XR ---
EXAMINATION TYPE: XR chest 1V portable DATE OF EXAM: 05/23/2018 COMPARISON: 05/21/2018 HISTORY: Postthoracentesis TECHNIQUE: Single frontal view of the chest is obtained. FINDINGS: No sizable pneumothorax. There is interval reduction in amount pleural fluid on the left p ersistent consolidation small effusion. The heart remains enlarged and there is postsurgical change. Lobulation the right cardiac border is compatible with prominent cardiac fat pad. IMPRESSION: 1. No pneumothorax postthoracentesis. Interval reduction in amount of consolidation and pleural effus ion on the left.
[2018-05-23] MEDS: KETOROLAC 30 MG/ML 1 ML VIAL IVP PRN ×2 (15:30→21:04)
--- NOTE | 2018-05-23 15:31 | XR ---
EXAMINATION TYPE: XR chest 1V portable DATE OF EXAM: 05/23/2018 HISTORY: Shortness of breath. COMPARISON: 05/23/2018 TECHNIQUE: Single view of the chest is submitted. FINDINGS: Demonstrated are scattered senescent parenchymal change. There is mild increased basilar density. The heart is enlarged. No evidence for pneumothorax. Hilar and mediastinal structures are within normal limits. Degenerative changes are seen of the dorsal spine. IMPRESSION: 1. No evidence for pneumothorax. Evaluation is stable relative to the prior study.
[2018-05-23 15:41] LABS: ALT 21 U/L (9-52); AST 23 U/L (14-36); Alkaline Phosphatase 98 U/L (38-126); Anion Gap 14 mmol/L; Blood Urea Nitrogen 7 mg/dL (7-17); Calcium 9.3 mg/dL (8.4-10.2); Carbon Dioxide 24 mmol/L (22-30); Chloride 102 mmol/L (98-107); Glucose 128 mg/dL (74-99); Potassium 4.6 mmol/L (3.5-5.1); Sodium 140 mmol/L (137-145); Total Bilirubin 0.7 mg/dL (0.2-1.3); Total Protein 7.5 g/dL (6.3-8.2)
--- NOTE | 2018-05-23 16:11 | OP ---
OPERATIVE REPORT PROCEDURE: Left-sided thoracentesis. PREOPERATIVE DIAGNOSIS: Left-sided pleural effusion. POSTOPERATIVE DIAGNOSIS: Left-sided pleural effusion. A time-out was completed verifying correct patient, procedure, site, positioning , and implant (s) or special equipment if applicable. Ultrasound guidance was used and appropriate fluid pocket was identified and marked. Patient was positioned, prepped and draped in usual sterile fashion. Lidocaine was used to anesthetize the area. A Thoracentesis catheter was introduced into the pleural space and fluid was removed. Blood loss was none. No complications. No pneumothorax. A chest x-ray was ordered to evaluate for pneumothorax. Total Fluid Removed: 800 mL Color of Fluid: Turbid, dark, red, bloody pleural effusion, typical of post-thoracotomy pleural effusion. Patient tolerated the procedure well. MMODL / IJN: [id number] /
[2018-05-23] MEDS ORDERED: SODIUM CHLORIDE 0.9% 500 ML 500 ML in EMPTY BAG 1 BAG IV PRN (16:51)
[2018-05-23] MEDS ORDERED: guaiFENesin 600 MG TABLET.ER PO PRN (17:47)
[2018-05-23 18:00] LABS: Appearance,BF Cloudy; Color,BF Red
--- NOTE | 2018-05-23 18:36 | P.GSCN ---
History of Present Illness Consult date: 05/23/18 Reason for Consult: Recent mitral valve repair, and no one to cardiothoracic service Requesting physician: Julieth Edouard History of present illness: This is 63-year-old female patient who is followed by Dr. Jewel Santiago on outpatient basis. The patient has a past medical history significant for severe mitral valve regurgitation and recent mitral valve repair on 05/02/2018, chronic paroxysmal atrial fibrillation with a Xarelto anticoagulation and recent Mauricio-Maze procedure, hypertension, hyperlipidemia, rheumatoid arthritis, obesity, obstructive sleep apnea with home CPAP use, moderate COPD with a recent FEV1 of 52% of predicted, anemia, history of gastric ulcer, history of MRSA to her right arm, recent preoperative nasal swab positive for MSSA, and postoperativeleft pleural effusion. Recently, the patient has had complaints of progressive shortness of breath with loose cough and pain to her chest with coughing. She denies any complaints of fever, nausea, vomiting, syncope, or change in bowel or bladder function. On 05/21/2018 the patient had a follow-up appointment with Dr. Gray from pulmonary medicine. She underwent an x-rayupper chest in the office which apparently demonstrated a left pleural effusion. Due due to the patient's complaints of progressive shortness of breath and the chest x-ray results she was scheduled for an outpatient left thoracentesis to be performed by Dr. Gray. A left thoracentesis was completed by Dr. Gray today with 800 mL of turbid dark red fluid drained. The patient was also noted to have A. fib with RVR with a heart rate of 135 BPM. Due to the patient's A. fib with RVR Dr. Gray felt the patient should be admitted to the hospital for a 24-hour observationto manage her atrial fibrillation. Subsequently a consult was placed to Dr. Horowitz from cardiothoracic surgery due to her recent surgery and known to our service. Review of Systems A 14 point review of systems was completed and was negative except as mentioned in HPI. Past Medical History Past Medical History: Atrial Fibrillation, Chest Pain / Angina, Heart Failure, GI Bleed, Hypertension, Rheumatoid Arthritis (RA), Sleep Apnea/CPAP/BIPAP Additional Past Medical History / Comment(s): History of atrial fibrillation post-ablation and cardioversions, recent hospitalization for GI bleeds related to a antral ulcer, anemia secondary to GI bleed, vertigo, liver lesion probably a meningioma and the patient will be having an outpatient MRI at a later stage, not currently using CPAP History of Any Multi-Drug Resistant Organisms: MRSA Year Discovered:: 06/23/05 MDRO Source:: lt arm Past Surgical History: Appendectomy, Section, Heart Catheterization, Hysterectomy, Joint Replacement, Orthopedic Surgery, Tubal Ligation Additional Past Surgical History / Comment(s): 7 KNEE SURGERIES= 0NE LEFT KNEE ARTHROSCOPY, and 5 RT KNEE ARTHROSCOPIES THEN TOTAL RT KNEE DONE & THEN TOTAL REVISION TO RT KNEE , PLACIDO. ACHILLES TENDON SURGERY- HAS SCREWS IN PLACIDO. HEELS, EYE SURGERY A CHILD(STRABISMUS), DENTAL IMPLANT BOTTOM LT., COLONOSCOPY, right shoulder sx x2 05/23/18 left thorancentesis Past Anesthesia/Blood Transfusion Reactions: Previous Problems w/ Anesthesia, Family History of Problems w/ Anesthesia, Postoperative Nausea & Vomiting (PONV) Additional Past Anesthesia/Blood Transfusion Reaction / Comm: PT & HER MOTHER HAVE HX PONV Past Psychological History: No Psychological Hx Reported Additional Psychological History / Comment(s): Pt resides with her spouse. She is independent. She uses no assistive device. She drives. Smoking Status: Never smoker Past Alcohol Use History: Rare Past Drug Use History: None Reported - Past Family History Mother Family Medical History: Congestive Heart Failure (CHF), Diabetes Mellitus Additional Family Medical History / Comment(s): History of spinal stenosis, heavy smoker and IDDM. Mother at age 73yrs. Father Family Medical History: Diabetes Mellitus, Hypertension Additional Family Medical History / Comment(s): Heavy smoker, Father in his late 60's or early 70's. Medications and Allergies Home Medications Medication Instructions Recorded Confirmed Type Rivaroxaban [Xarelto] 20 mg PO HS 02/16/15 05/23/18 History Furosemide [Lasix] 40 mg PO BID #0 04/26/18 05/23/18 Rx Potassium Chloride [Klor-Con 20] 20 meq PO BID #0 04/26/18 05/23/18 Rx Ferrous Sulfate [Iron (65 MG 325 mg PO TID-W/MEALS tab 05/10/18 05/23/18 Rx Elemental)] Metoprolol Tartrate [Lopressor] 25 mg PO TID tab 05/10/18 05/23/18 Rx Pantoprazole [Protonix] 40 mg PO AC-BID tablet.dr 05/10/18 05/23/18 Rx guaiFENesin [Mucinex] 600 mg PO Q12HR PRN tablet.er 05/10/18 05/23/18 Rx Amiodarone [Cordarone] 200 mg PO BID 05/23/18 05/23/18 History Aspirin [Adult Low Dose Aspirin EC] 81 mg PO DAILY 05/23/18 05/23/18 History HYDROcodone/APAP 5-325MG [[place] 1 tab PO QID PRN 05/23/18 05/23/18 History 5-325] Sennosides-Docusate Sodium 2 tab PO HS 05/23/18 05/23/18 History [Senokot-S] Allergies Allergy/AdvReac Type Severity Reaction Status Date / Time No Known Allergies Allergy Verified 05/23/18 17:28 Surgical - Exam Vital Signs Temp Pulse Resp BP Pulse Ox 98.8 F 120 H 18 122/92 98 05/23/18 11:11 05/23/18 11:11 05/23/18 11:11 05/23/18 11:11 05/23/18 11:11 - General well developed, well nourished, no distress, no pain, obese - Eyes PERRL, normal ocular movement - ENT normal pinna, normal nares, normal mucosa, no hearing loss, no congestion - Neck no lymphadenopathy, neck is supple. no masses, no bruits, trachea midline, no venous distension - Respiratory lungs sounds are essentially clear throughout, diminished bilateral bases. Respirations are symmetrical and nonlabored. Oxygen saturation is are 98% on room air. - Cardiovascular Irregular rhythm and tachycardic rate. S1 and S2 present, negative for S3, gallop or murmur. Remote telemetry showing atrial fibrillation with RVR heart rate 133. No edema present. Heart hugger is in place and she is demonstrating appropriate use. Knee high FACUNDO hose and sequential compression devices in place to her bilateral lower extremities. - Abdomen abdomen is soft, nontender and nondistended. Active bowel sounds to all 4 abdominal quadrants. No guarding or rigidity. No organomegaly. - Genitourinary deferred - Rectum deferred - Integumentary midline sternal incision clean dry and approximated. Dressing clean dry and intact to her midline sternal incision. No drainage or redness present. no rash, no growths, no abnormal pigmentation - Neurologic normal coordination, normal sensation - Musculoskeletal normal gait, normal posture - Psychiatric oriented to time, oriented to person, oriented to place, speech is normal, memory intact Results - Labs 05/23/18 11:50 05/23/18 15:15 Abnormal Lab Results - Last 24 Hours (Table) 05/23/18 05/23/18 Range/Units 11:50 15:15 RBC 3.64 L (3.80-5.40) m/uL Hgb 10.3 L (11.4-16.0) gm/dL Hct 33.0 L (34.0-46.0) % Plt Count 472 H (150-450) k/uL Glucose 128 H (74-99) mg/dL Diabetes panel 05/23/18 Range/Units 15:15 Sodium 140 (137-145) mmol/L Potassium 4.6 (3.5-5.1) mmol/L Chloride 102 (98-107) mmol/L Carbon Dioxide 24 (22-30) mmol/L BUN 7 (7-17) mg/dL Creatinine 0.56 (0.52-1.04) mg/dL Glucose 128 H (74-99) mg/dL Calcium 9.3 (8.4-10.2) mg/dL AST 23 (14-36) U/L ALT 21 (9-52) U/L Alkaline Phosphatase 98 (38-126) U/L Total Protein 7.5 (6.3-8.2) g/dL Albumin 4.0 (3.5-5.0) g/dL Calcium panel 05/23/18 Range/Units 15:15 Calcium 9.3 (8.4-10.2) mg/dL Albumin 4.0 (3.5-5.0) g/dL Pituitary panel 05/23/18 Range/Units 15:15 Sodium 140 (137-145) mmol/L Potassium 4.6 (3.5-5.1) mmol/L Chloride 102 (98-107) mmol/L Carbon Dioxide 24 (22-30) mmol/L BUN 7 (7-17) mg/dL Creatinine 0.56 (0.52-1.04) mg/dL Glucose 128 H (74-99) mg/dL Calcium 9.3 (8.4-10.2) mg/dL Adrenal panel 05/23/18 Range/Units 15:15 Sodium 140 (137-145) mmol/L Potassium 4.6 (3.5-5.1) mmol/L Chloride 102 (98-107) mmol/L Carbon Dioxide 24 (22-30) mmol/L BUN 7 (7-17) mg/dL Creatinine 0.56 (0.52-1.04) mg/dL Glucose 128 H (74-99) mg/dL Calcium 9.3 (8.4-10.2) mg/dL Total Bilirubin 0.7 (0.2-1.3) mg/dL AST 23 (14-36) U/L ALT 21 (9-52) U/L Alkaline Phosphatase 98 (38-126) U/L Total Protein 7.5 (6.3-8.2) g/dL Albumin 4.0 (3.5-5.0) g/dL - Imaging Chest x-ray: report reviewed, image reviewed Assessment and Plan (1) Dyspnea Current Visit: No Status: Acute Code(s): R06.00 - DYSPNEA, UNSPECIFIED SNOMED Code(s): 934471180 (2) Hyperlipidemia Current Visit: No Status: Acute Code(s): E78.5 - HYPERLIPIDEMIA, UNSPECIFIED SNOMED Code(s): 69208075 (3) Status post mitral valve repair Current Visit: No Status: Acute Code(s): Z98.890 - OTHER SPECIFIED POSTPROCEDURAL STATES SNOMED Code(s): 191748669 (4) COPD (chronic obstructive pulmonary disease) Current Visit: No Status: Chronic Code(s): J44.9 - CHRONIC OBSTRUCTIVE PULMONARY DISEASE, UNSPECIFIED SNOMED Code(s): 50498505 (5) Chronic anticoagulation Current Visit: No Status: Chronic Code(s): Z79.01 - LONG-TERM (CURRENT) USE OF ANTICOAGULANTS SNOMED Code(s): 463279141 (6) HTN (hypertension) Current Visit: No Status: Chronic Code(s): I10 - ESSENTIAL (PRIMARY) HYPERTENSION SNOMED Code(s): 10371901 (7) History of anemia Current Visit: No Status: Chronic Code(s): Z86.2 - PRSNL HISTORY OF DIS OF THE BLD/BLD-FORM ORG/IMMUN MECHNSM SNOMED Code(s): 217964211 (8) History of upper gastrointestinal bleeding Current Visit: No Status: Chronic Code(s): Z87.19 - PERSONAL HISTORY OF OTHER DISEASES OF THE DIGESTIVE SYSTEM SNOMED Code(s): 796129091 (9) Left bundle branch block Current Visit: No Status: Chronic Code(s): I44.7 - LEFT BUNDLE-BRANCH BLOCK , UNSPECIFIED SNOMED Code(s): 50972603 (10) Mitral valve regurgitation Current Visit: No Status: Chronic Code(s): I34.0 - NONRHEUMATIC MITRAL ( VALVE) INSUFFICIENCY SNOMED Code(s): 22484089 (11) Obstructive sleep apnea Current Visit: No Status: Chronic Code(s): G47.33 - OBSTRUCTIVE SLEEP APNEA (ADULT) (PEDIATRIC) SNOMED Code(s): 82359836 (12) Rheumatoid arthritis Current Visit: No Status: Chronic Code(s): M06.9 - RHEUMATOID ARTHRITIS, UNSPECIFIED SNOMED Code(s): 24951129 (13) Paroxysmal a-fib Current Visit: No Status: Resolved Code(s): I48.0 - PAROXYSMAL ATRIAL FIBRILLATION SNOMED Code(s): 791574788 (14) Pleural effusion, left Current Visit: Yes Status: Acute Code(s): J90 - PLEURAL EFFUSION, NOT ELSEWHERE CLASSIFIED SNOMED Code(s): 80848719 Plan: The patient was seen and examined. Her chart and diagnostics were reviewed. She was seen and examined by Dr. Diallo from cardiothoracic surgery. A 2-D echocardiogram has been ordered to evaluate her left ventricular function. We have ordered some Toradol 15 mg IVP every 6 hours when necessary pain due to her complaints of left shoulder pain. Continue to encourage use of her incentive spirometryevery hour while awake and her heart hugger. Pulmonary recommendations per Dr. Gray cardiology recommendations per Dr. Victor. Thank you Dr. Edouard for this consult and we will look forward to working with you in the care of your patient. Time with Patient: Greater than 30
[2018-05-23 18:37] VITALS: BMI 40.1
[2018-05-23] MEDS: HYDROcodone/APAP 5-325MG 1 EACH TAB PO PRN (18:38)
[2018-05-23] MEDS: ASPIRIN 81 MG PO SCH (18:39)
[2018-05-23] MEDS: METOPROLOL TARTRATE 25 MG TAB PO SCH (18:39)
[2018-05-23] MEDS: FUROSEMIDE 40 MG TAB PO SCH (18:40)
[2018-05-23] MEDS: PANTOPRAZOLE 40 MG TABLET PO SCH (18:42)
[2018-05-23 18:43] LABS: Nucleated Cells, Body Fluid 1500 /uL; RBC, Body Fluid 96000 /uL
[2018-05-23 18:45] LABS: Mononuclear WBC,Body Fluid 95 %; Polynuclear WBC,Body Fluid 5 %; Total Cells Counted,Body Fluid 100
[2018-05-23] MEDS ORDERED: SENNOSIDES-DOCUSATE SODIUM 1 EACH TAB PO SCH (21:00)
[2018-05-23] MEDS ORDERED: RIVAROXABAN 20 MG TAB PO SCH (21:00)
[2018-05-23] MEDS: AMIODARONE 200 MG TAB PO SCH (21:03)
[2018-05-23] MEDS: POTASSIUM CHLORIDE ER 20 MEQ TAB.ER PO SCH (21:03)
--- NOTE | 2018-05-23 23:52 | P.HPIM ---
History of Present Illness H&P Date: 05/23/18 Chief Complaint: Shortness of breath and A. fib with RVR Lucina curtis is a 63-year-old female with a known history of paroxysmal atrial fibrillation status post ablation and multiple cardioversions on anticoagulation with xarelto, mitral valve repair on 05/02/2018, recent Mauricio- Maze procedure, history of GI bleed with large clean-based ulcer in the antrum of the stomach earlier this month, rheumatoid arthritis, hypertension, hyperlipidemia, obstructive sleep apnea on CPAP at home, moderate COPD and multiple other medical problems initially presented to outpatient thoracentesis due to worsening shortness of breath and left-sided pleural effusion. Chest x- ray showed a large pleural effusion on the left side. Patient had thoracentesis with 800 mL of dark fluid was drained. Postprocedure patient went into atrial fibrillation with aberrant Rate up to 130s. Patient was admitted to the hospital for further management and cardiology evaluation. Patient does take metoprolol 3 times daily and is also on anticoagulation with xarelto at home. Currently patient denied any complaints of chest pain. Patient does have shortness of breath and some lightheadedness. No nausea vomiting or abdominal pain. No diarrhea or dysuria. Denied any recent illnesses. Patient was discharged home on 05/10/2018 from recent admission for mitral valve repair.. Patient was seen and examined at the outpatient procedure unit. Review of Systems Constitutional: Patient denies any fever or chills . No generalized weakness or weight loss. Abdomen: Patient denied nausea vomiting and diarrhea and abdominal pain. Cardiovascular: Patient does have shortness of breath and no chest pain. Lightheadedness and tachycardia. Respiratory: patient denied any cough is from production. No shortness of breath Neurologic: Patient denied any numbness or tingling headache. Musculoskeletal: Patient denies any complaints of joint swelling or deformity. Skin: Negative Psychiatric: Negative Endocrine: No heat or cold intolerance. No recent weight gain. Genitourinary: No dysuria or hematuria. All other 14 point ROS negative except the above Past Medical History Past Medical History: Atrial Fibrillation, Chest Pain / Angina, Heart Failure, GI Bleed, Hypertension, Rheumatoid Arthritis (RA), Sleep Apnea/CPAP/BIPAP Additional Past Medical History / Comment(s): History of atrial fibrillation post-ablation and cardioversions, recent hospitalization for GI bleeds related to a antral ulcer, anemia secondary to GI bleed, vertigo, liver lesion probably a meningioma and the patient will be having an outpatient MRI at a later stage, not currently using CPAP History of Any Multi-Drug Resistant Organisms: MRSA Date of last positivie culture/infection: 06/23/05 MDRO Source:: lt arm Past Surgical History: Appendectomy, Section, Heart Catheterization, Hysterectomy, Joint Replacement, Orthopedic Surgery, Tubal Ligation Additional Past Surgical History / Comment(s): 7 KNEE SURGERIES= 0NE LEFT KNEE ARTHROSCOPY, and 5 RT KNEE ARTHROSCOPIES THEN TOTAL RT KNEE DONE & THEN TOTAL REVISION TO RT KNEE , PLACIDO. ACHILLES TENDON SURGERY- HAS SCREWS IN PLACIDO. HEELS, EYE SURGERY A CHILD(STRABISMUS), DENTAL IMPLANT BOTTOM LT., COLONOSCOPY, right shoulder sx x2 05/23/18 left thorancentesis Past Anesthesia/Blood Transfusion Reactions: Previous Problems w/ Anesthesia, Family History of Problems w/ Anesthesia, Postoperative Nausea & Vomiting (PONV) Additional Past Anesthesia/Blood Transfusion Reaction / Comment(s): PT & HER MOTHER HAVE HX PONV Past Psychological History: No Psychological Hx Reported Additional Psychological History / Comment(s): Pt resides with her spouse. She is independent. She uses no assistive device. She drives. Smoking Status: Never smoker Past Alcohol Use History: Rare Past Drug Use History: None Reported - Past Family History Mother Family Medical History: Congestive Heart Failure (CHF), Diabetes Mellitus Additional Family Medical History / Comment(s): History of spinal stenosis, heavy smoker and IDDM. Mother at age 73yrs. Father Family Medical History: Diabetes Mellitus, Hypertension Additional Family Medical History / Comment(s): Heavy smoker, Father in his late 60's or early 70's. Medications and Allergies Home Medications Medication Instructions Recorded Confirmed Type Rivaroxaban [Xarelto] 20 mg PO HS 02/16/15 05/23/18 History Furosemide [Lasix] 40 mg PO BID #0 04/26/18 05/23/18 Rx Potassium Chloride [Klor-Con 20] 20 meq PO BID #0 04/26/18 05/23/18 Rx Ferrous Sulfate [Iron (65 MG 325 mg PO TID-W/MEALS tab 05/10/18 05/23/18 Rx Elemental)] Metoprolol Tartrate [Lopressor] 25 mg PO TID tab 05/10/18 05/23/18 Rx Pantoprazole [Protonix] 40 mg PO AC-BID tablet.dr 05/10/18 05/23/18 Rx guaiFENesin [Mucinex] 600 mg PO Q12HR PRN tablet.er 05/10/18 05/23/18 Rx Amiodarone [Cordarone] 200 mg PO BID 05/23/18 05/23/18 History Aspirin [Adult Low Dose Aspirin EC] 81 mg PO DAILY 05/23/18 05/23/18 History HYDROcodone/APAP 5-325MG [[place] 1 tab PO QID PRN 05/23/18 05/23/18 History 5-325] Sennosides-Docusate Sodium 2 tab PO HS 05/23/18 05/23/18 History [Senokot-S] Allergies Allergy/AdvReac Type Severity Reaction Status Date / Time No Known Allergies Allergy Verified 05/23/18 17:28 Physical Exam Vitals: Vital Signs Temp Pulse Pulse Resp BP BP Pulse Ox 05/23/18 19:28 22 05/23/18 16:59 97.1 F L 130 H 22 126/71 96 05/23/18 15:40 122 H 16 118/72 05/23/18 15:10 126 H 18 116/72 98 05/23/18 14:58 125 H 16 119/74 100 05/23/18 14:55 130 H 16 106/84 97 05/23/18 14:00 128 H 16 123/72 98 05/23/18 13:10 125 H 16 124/77 05/23/18 12:41 130 H 16 135/82 97 05/23/18 11:12 124 H 18 122/92 97 05/23/18 11:11 98.8 F 120 H 18 122/92 98 Intake and Output 05/23/18 05/23/18 05/24/18 14:59 22:59 06:59 Other: # Voids 1 Weight 106.141 kg 106 kg PHYSICAL EXAMINATION: Patient is lying in the bed comfortably, no acute distress, awake alert and oriented.. HEENT: Normocephalic. Neck is supple. Pupils reactive. Nostrils clear. Oral cavity is moist. Ears reveal no drainage. Neck reveals no JVD, carotid bruits, or thyromegaly. CHEST EXAMINATION: Trachea is central. Symmetrical expansion. Left basilar crackles. Diminished breath sounds bilateral bibasilar. No wheezing. CARDIAC: Normal S1, S2 with no gallops. No murmurs . Irregularly irregular pulse. ABDOMEN: Soft. Bowel sounds normal. No organomegaly. No abdominal bruits. Extremities: reveal no edema. No clubbing or cyanosis Neurologically awake, alert, oriented x3 with well-coordinated movements. No focal deficits noted Skin: No rash or skin lesions. Psychiatric: Coperative. Nonsuicidal Musculoskeletal: No joint swelling or deformity. Normal range of motion. Results CBC & Chem 7: 05/23/18 11:50 05/23/18 15:15 Labs: Abnormal Lab Results - Last 24 Hours (Table) 05/23/18 05/23/18 Range/Units 11:50 15:15 RBC 3.64 L (3.80-5.40) m/uL Hgb 10.3 L (11.4-16.0) gm/dL Hct 33.0 L (34.0-46.0) % Plt Count 472 H (150-450) k/uL Glucose 128 H (74-99) mg/dL Thrombosis Risk Factor Assmnt - DVT/VTE Prophylaxis DVT/VTE Prophylaxis: Pharmacologic Prophylaxis ordered - Choose All That Apply Any of the Below Risk Factors Present?: Yes Each Factor Represents 1 point: History of prior major surgery (<1month) Other Risk Factors: No Thrombosis Risk Factor Assessment Total Risk Factor Score: 1 Thrombosis Risk Factor Assessment Level: Low Risk Assessment and Plan Assessment: Paroxysmal atrial fibrillation with rapid regular rate. Shortness of breath worsening due to left pleural effusion. Status post paracentesis with 800 mL of dark fluid removal. Paroxysmal atrial fibrillation with history of ablation and multiple cardioversions. On anticoagulation with xarelto at home. Status post mitral valve repair modified maze on 05/02/2018 Rheumatoid arthritis Hypertension Obstructive sleep apnea on CPAP at home Liver lesion possibly hemangioma History of GI bleed in April 2018 status post EGD showing clean based antral ulcer morbid obesity with BMI 40.1 Lifelong nonsmoker Plan: Patient will be transferred to inpatient hospital bed. and will be continued on metoprolol 25 mg 3 times a day as per home dose. Cardizem drip as blood pressure tolerates. Continue the home medications including PPI twice a day. Continued with telemetry monitoring and cardiology and CT surgery was consulted. Continue with Lasix. Further recommendations based on the clinical course. Discussed with the patient and her at bedside in detail. Time with Patient: Greater than 30
[2018-05-24] MEDS: HYDROcodone/APAP 5-325MG 1 EACH TAB PO PRN ×3 (00:40→16:27)
[2018-05-24] MEDS: METOPROLOL TARTRATE 25 MG TAB PO SCH ×2 (00:40→08:52)
[2018-05-24] MEDS: DILTIAZEM 50 MG in SODIUM CHLORIDE 0.9% 40 ML IV SCH ×2 (00:50→08:57)
[2018-05-24] MEDS: KETOROLAC 30 MG/ML 1 ML VIAL IVP PRN ×2 (03:22→08:52)
[2018-05-24 05:40] VITALS: RESP 17
[2018-05-24] MEDS: PANTOPRAZOLE 40 MG TABLET PO SCH ×2 (06:43→17:46)
[2018-05-24 06:53] LABS: Basophils % (A) 0 %; Eosinophils # (A) 0.2 k/uL (0-0.7); Eosinophils % (A) 2 %; HCT 28.1 % (34.0-46.0); Hypochromasia Marked; Lymphocytes # (A) 1.7 k/uL (1.0-4.8); Lymphocytes % (A) 22 %; MCH 28.1 pg (25.0-35.0); MCHC 31.4 g/dL (31.0-37.0); MCV 89.3 fL (80.0-100.0); Mean Platelet Volume 7.7; Monocytes # (A) 0.5 k/uL (0-1.0); Monocytes % (A) 7 %; Neutrophils # (A) 5.1 k/uL (1.3-7.7); Neutrophils % (A) 67 %; Platelet Count 352 k/uL (150-450); RBC 3.14 m/uL (3.80-5.40); RDW 15.1 % (11.5-15.5); WBC 7.6 k/uL (3.8-10.6)
[2018-05-24 06:59] LABS: HGB 8.8 gm/dL (11.4-16.0)
[2018-05-24 07:13] LABS: Anion Gap 8 mmol/L; Blood Urea Nitrogen 10 mg/dL (7-17); Calcium 8.9 mg/dL (8.4-10.2); Carbon Dioxide 25 mmol/L (22-30); Chloride 105 mmol/L (98-107); Glucose 104 mg/dL (74-99); Magnesium 1.7 mg/dL (1.6-2.3); Potassium 4.1 mmol/L (3.5-5.1); Sodium 138 mmol/L (137-145)
[2018-05-24] MEDS: AMIODARONE 200 MG TAB PO SCH (08:51)
[2018-05-24] MEDS: POTASSIUM CHLORIDE ER 20 MEQ TAB.ER PO SCH (08:52)
[2018-05-24] MEDS: ASPIRIN 81 MG PO SCH (08:52)
[2018-05-24] MEDS: FUROSEMIDE 40 MG TAB PO SCH (08:52)
[2018-05-24] MEDS ORDERED: METOPROLOL TARTRATE 50 MG TAB PO SCH (09:00)
--- NOTE | 2018-05-24 09:14 | P.CRDCN ---
History of Present Illness Consult date: 05/24/18 Requesting physician: Julieth Edouard Consult reason: atrial fibrillation Chief complaint: Shortness of breath History of present illness: This is a 63-year-old female who follows with Dr. Victor in the office. She has past medical history significant for severe mitral valve regurgitation with recent mitral valve repair on the of this month, paroxysmal atrial fibrillation, on Xarelto for anticoagulation, hypertension, hyperlipidemia, rheumatoid arthritis, obesity, obstructive sleep apnea with home CPAP use, moderate COPD, anemia, history of MRSA in her right arm. Patient has been progressively more short of breath at home and has been having some pain in her chest, worse with deep breathing. Patient went to see Dr. Gray in the office, underwent an x-ray with a subsequent thoracentesis, 800 mL was removed. Patient at that time was noted to have A. fib with RVR, and for this reason was admitted for 24-hour observation to manage the atrial fibrillation. She was initiated on IV Cardizem drip and continues to be on Cardizem at this time. Chest x-ray does not reveal any evidence of a pneumothorax post thoracentesis. Blood pressure 114/70 with a heart rate of 108 this morning, 95% on room air. White blood cell count 7.6, hemoglobin 8.8, platelet count 352. Sodium 138, potassium 4.1, BUN 10, creatinine 0.6, magnesium 1.7. At the time of my examination this morning, patient is sitting up in the chair at bedside, she does complain of some sharp stabbing chest pains but only with taking very deep breaths. Hemodynamically stable, heart rate still in the low 100s this morning. We will discontinue her IV Cardizem, continue amiodarone by mouth, increase dose of metoprolol to 50 mg by mouth twice a day. Patient is on Xarelto for anticoagulation. No documented history of coronary artery disease, we will discontinue the aspirin. Past Medical History Past Medical History: Atrial Fibrillation, Chest Pain / Angina, Heart Failure, GI Bleed, Hypertension, Rheumatoid Arthritis (RA), Sleep Apnea/CPAP/BIPAP Additional Past Medical History / Comment(s): History of atrial fibrillation post-ablation and cardioversions, recent hospitalization for GI bleeds related to a antral ulcer, anemia secondary to GI bleed, vertigo, liver lesion probably a meningioma and the patient will be having an outpatient MRI at a later stage, not currently using CPAP History of Any Multi-Drug Resistant Organisms: MRSA Date of last positivie culture/infection: 06/23/05 MDRO Source:: lt arm Past Surgical History: Appendectomy, Section, Heart Catheterization, Hysterectomy, Joint Replacement, Orthopedic Surgery, Tubal Ligation Additional Past Surgical History / Comment(s): 7 KNEE SURGERIES= 0NE LEFT KNEE ARTHROSCOPY, and 5 RT KNEE ARTHROSCOPIES THEN TOTAL RT KNEE DONE & THEN TOTAL REVISION TO RT KNEE , PLACIDO. ACHILLES TENDON SURGERY- HAS SCREWS IN PLACIDO. HEELS, EYE SURGERY A CHILD(STRABISMUS), DENTAL IMPLANT BOTTOM LT., COLONOSCOPY, right shoulder sx x2 05/23/18 left thorancentesis Past Anesthesia/Blood Transfusion Reactions: Previous Problems w/ Anesthesia, Family History of Problems w/ Anesthesia, Postoperative Nausea & Vomiting (PONV) Additional Past Anesthesia/Blood Transfusion Reaction / Comment(s): PT & HER MOTHER HAVE HX PONV Past Psychological History: No Psychological Hx Reported Additional Psychological History / Comment(s): Pt resides with her spouse. She is independent. She uses no assistive device. She drives. Smoking Status: Never smoker Past Alcohol Use History: Rare Past Drug Use History: None Reported - Past Family History Mother Family Medical History: Congestive Heart Failure (CHF), Diabetes Mellitus Additional Family Medical History / Comment(s): History of spinal stenosis, heavy smoker and IDDM. Mother at age 73yrs. Father Family Medical History: Diabetes Mellitus, Hypertension Additional Family Medical History / Comment(s): Heavy smoker, Father in his late 60's or early 70's. Medications and Allergies Home Medications Medication Instructions Recorded Confirmed Type Rivaroxaban [Xarelto] 20 mg PO HS 02/16/15 05/23/18 History Furosemide [Lasix] 40 mg PO BID #0 04/26/18 05/23/18 Rx Potassium Chloride [Klor-Con 20] 20 meq PO BID #0 04/26/18 05/23/18 Rx Ferrous Sulfate [Iron (65 MG 325 mg PO TID-W/MEALS tab 05/10/18 05/23/18 Rx Elemental)] Metoprolol Tartrate [Lopressor] 25 mg PO TID tab 05/10/18 05/23/18 Rx Pantoprazole [Protonix] 40 mg PO AC-BID tablet. 05/10/18 05/23/18 Rx guaiFENesin [Mucinex] 600 mg PO Q12HR PRN tablet.er 05/10/18 05/23/18 Rx Amiodarone [Cordarone] 200 mg PO BID 05/23/18 05/23/18 History Aspirin [Adult Low Dose Aspirin EC] 81 mg PO DAILY 05/23/18 05/23/18 History HYDROcodone/APAP 5-325MG [[place] 1 tab PO QID PRN 05/23/18 05/23/18 History 5-325] Sennosides-Docusate Sodium 2 tab PO HS 05/23/18 05/23/18 History [Senokot-S] Allergies Allergy/AdvReac Type Severity Reaction Status Date / Time No Known Allergies Allergy Verified 05/23/18 17:28 Physical Exam Vitals: Vital Signs Temp Pulse Pulse Pulse Resp BP BP 05/24/18 08:00 98.0 F 107 H 17 114/73 05/24/18 04:00 115 H 17 114/74 05/24/18 00:00 98.3 F 113 H 18 143/76 05/23/18 20:00 99 F 123 H 18 125/63 05/23/18 19:28 22 05/23/18 16:59 97.1 F L 130 H 22 126/71 05/23/18 15:40 122 H 16 118/72 05/23/18 15:10 126 H 18 116/72 05/23/18 14:58 125 H 16 119/74 05/23/18 14:55 130 H 16 106/84 05/23/18 14:00 128 H 16 123/72 05/23/18 13:10 125 H 16 124/77 05/23/18 12:41 130 H 16 135/82 05/23/18 11:12 124 H 18 122/92 05/23/18 11:11 98.8 F 120 H 18 122/92 Pulse Ox 05/24/18 08:00 95 05/24/18 04:00 96 05/24/18 00:00 95 05/23/18 20:00 95 05/23/18 19:28 05/23/18 16:59 96 05/23/18 15:40 05/23/18 15:10 98 05/23/18 14:58 100 05/23/18 14:55 97 05/23/18 14:00 98 05/23/18 13:10 05/23/18 12:41 97 05/23/18 11:12 97 05/23/18 11:11 98 Intake and Output 05/23/18 05/24/18 05/24/18 22:59 06:59 14:59 Intake Total 40.666 Balance 40.666 Intake: Intake, IV Titration 40.666 Amount Diltiazem 50 mg In Sodium 40.666 Chloride 0.9% 40 ml @ 5 MG/HR 5 mls/hr IV .Q10H [facility] Rx#:[id number] Other: Voiding Method Toilet # Voids 1 1 1 # Bowel Movements 0 Weight 106 kg 105.6 kg PHYSICAL EXAMINATION: GENERAL: 63-year-old female in no acute distress at the time of my examination HEENT: Head is atraumatic, normocephalic. Pupils equal, round. Sclera anicteric. Conjunctiva are clear. Mucous membranes of the mouth are moist. Neck is supple. There is no elevated jugular venous pressure. No carotid bruit is heard. HEART EXAMINATION: Heart S1 and S2 irregularly irregular a systolic murmur is heard CHEST EXAMINATION: Lungs are clear to auscultation and precussion. No chest wall tenderness is noted on palpation or with deep breathing. ABDOMEN: Soft, nontender. Bowel sounds are heard. No organomegaly noted. EXTREMITIES: 2+ peripheral pulses with trace evidence of peripheral edema , bilateral Venodyne's in place. . NEUROLOGIC patient is awake, alert and oriented X3. . Results 05/24/18 06:17 05/24/18 06:17 Cardiac Enzymes 05/23/18 Range/Units 15:15 AST 23 (14-36) U/L CBC 05/23/18 05/24/18 Range/Units 11:50 06:17 WBC 8.4 7.6 (3.8-10.6) k/uL RBC 3.64 L 3.14 L (3.80-5.40) m/uL Hgb 10.3 L 8.8 L D (11.4-16.0) gm/dL Hct 33.0 L 28.1 L (34.0-46.0) % Plt Count 472 H 352 (150-450) k/uL Comprehensive Metabolic Panel 05/23/18 05/24/18 Range/Units 15:15 06:17 Sodium 140 138 (137-145) mmol/L Potassium 4.6 4.1 (3.5-5.1) mmol/L Chloride 102 105 (98-107) mmol/L Carbon Dioxide 24 25 (22-30) mmol/L BUN 7 10 (7-17) mg/dL Creatinine 0.56 0.63 (0.52-1.04) mg/dL Glucose 128 H 104 H (74-99) mg/dL Calcium 9.3 8.9 (8.4-10.2) mg/dL AST 23 (14-36) U/L ALT 21 (9-52) U/L Alkaline Phosphatase 98 (38-126) U/L Total Protein 7.5 (6.3-8.2) g/dL Albumin 4.0 (3.5-5.0) g/dL Current Medications Generic Name Dose Route Start Last Admin Trade Name Freq PRN Reason Stop Dose Admin Hydrocodone Bitart/Acetaminophen 1 each 05/23/18 17:47 05/24/18 06:43 [place] 5-325 PO 1 each QID PRN Administration Pain Amiodarone HCl 200 mg 05/23/18 21:00 05/24/18 08:51 Cordarone PO 200 mg BID [facility] Administration Furosemide 40 mg 05/23/18 21:00 05/24/18 08:52 Lasix PO 40 mg BID [facility] Administration Guaifenesin 600 mg 05/23/18 17:47 Mucinex PO Q12HR PRN Cough Sodium Chloride 500 ml/ IV 500 mls @ 20 mls/hr 05/23/18 16:51 Solution IV .Q24H PRN PER PROTOCOL Protocol Ketorolac Tromethamine 15 mg 05/23/18 15:13 05/24/18 08:52 Toradol IVP 05/27/18 15:13 15 mg Q6HR PRN Administration Pain Metoprolol Tartrate 50 mg 05/24/18 09:00 Lopressor PO BID [facility] Pantoprazole Sodium 40 mg 05/23/18 18:00 05/24/18 06:43 Protonix PO 40 mg AC-BID [facility] Administration Potassium Chloride 20 meq 05/23/18 21:00 05/24/18 08:52 K-Dur 20 PO 20 meq BID [facility] Administration Rivaroxaban 20 mg 05/23/18 21:00 05/23/18 21:06 Xarelto PO 20 mg HS [facility] Administration Senna/Docusate Sodium 2 each 05/23/18 21:00 05/23/18 21:03 Senokot-S PO 2 each HS [facility] Administration Sodium Chloride 10 - 40 ml 05/23/18 16:51 Saline Flush IV DIRECTED PRN FLUSH Intake and Output 05/23/18 05/24/18 05/24/18 22:59 06:59 14:59 Intake Total 40.666 Balance 40.666 Intake: Intake, IV Titration 40.666 Amount Diltiazem 50 mg In Sodium 40.666 Chloride 0.9% 40 ml @ 5 MG/HR 5 mls/hr IV .Q10H [facility] Rx#:[id number] Other: Voiding Method Toilet # Voids 1 1 1 # Bowel Movements 0 Weight 106 kg 105.6 kg 05/24/18 06:17 05/24/18 06:17 EKG Interpretations (text) EKG shows atrial fibrillation with a rapid ventricular response. Assessment and Plan Plan: Assessment and plan #1 symptoms of progressive shortness of breath with evidence of right sided pleural effusion status post thoracentesis #2 history of severe mitral regurgitation, status post recent mitral valve repair earlier this month. #3 paroxysmal atrial fibrillation, patient currently in atrial fibrillation, heart rate in the low 100s, on Cardizem at 5 mg per hour. #4 hypertension #5 known documented coronary artery disease by cardiac catheterization performed in the past. #6 rheumatoid arthritis Plan We will discontinue the IV Cardizem and increase the dose of beta miguel angel. We will also discontinue the aspirin and continue Xarelto 20 mg daily. DNP note has been reviewed, I agree with a documented findings and plan of care. Patient was seen and examined.
[2018-05-24] MEDS ORDERED: COLCHICINE 0.6 MG EACH PO SCH (09:30)
--- NOTE | 2018-05-24 09:30 | P.PN ---
Subjective Progress Note Date: 05/24/18 Principal diagnosis: Chronic paroxysmal atrial fibrillation on Xarelto for anticoagulation, current observation admission for A. fib RVR. History of severe mitral valve regurgitation with mitral valve repair on 05/02/2018 as well as Mauricio maze procedure and closure of the left atrial appendage with postoperative left pleural effusion, hypertension, hyperlipidemia, rheumatoid arthritis, obesity, obstructive sleep apnea with home CPAP use, moderate COPD with recent FEV1 52% of predicted, anemia, and history of gastric ulcer. POD #1 left-sided thoracentesis with removal of 850 mL bloody fluid. The patient is currently sitting up in a recliner in no acute distress. Denies any pain, states shortness of breath is much better and she is not feeling palpitations anymore. Objective - Vital Signs Vital signs: Vital Signs Temp 98.0 F 05/24/18 08:00 Pulse 107 H 05/24/18 08:00 Resp 17 05/24/18 08:00 BP 114/73 05/24/18 08:00 Pulse Ox 95 05/24/18 08:00 Intake & Output 05/23/18 05/24/18 05/24/18 18:59 06:59 18:59 Intake Total 40.666 Balance 40.666 Weight 106 kg 105.6 kg Intake: Intake, IV Titration 40.666 Amount Diltiazem 50 mg In Sodium 40.666 Chloride 0.9% 40 ml @ 5 MG/HR 5 mls/hr IV .Q10H [facility] Rx#:[id number] Other: Voiding Method Toilet # Voids 1 1 1 # Bowel Movements 0 - Constitutional General appearance: Present: cooperative, no acute distress, obese - Respiratory Details: lungs as Ms. bilaterally. Respirations even, nonlabored. Currently on room air infection saturation 96%. Strong cough. - Cardiovascular Details: S1, S2 present. Irregular rate and rhythm, atrial fibrillation on telemetry. Sternum stable. Palpable peripheral pulses bilaterally. No edema present. No calf pain or tenderness noted. SCDs present. - Gastrointestinal Gastrointestinal Comment(s): Abdomen soft, nontender, nondistended. Active bowel sounds 4 quadrants. Tolerating diet. - Genitourinary Genitourinary Comment(s): continues to void clear, yellow urine. - Integumentary Integumentary Comment(s): skin is warm and dry with evidence of good perfusion. Anterior chest incision well approximated and covered with Dermabond. - Neurologic Neurologic: Present: CNII-XII intact - Musculoskeletal Musculoskeletal: Present: gait normal, strength equal bilaterally - Psychiatric Psychiatric: Present: A&O x's 3, appropriate affect, intact judgment & insight - Allied health notes Allied health notes reviewed: nursing - Labs CBC & Chem 7: 05/24/18 06:17 05/24/18 06:17 Labs: Abnormal Lab Results - Last 24 Hours (Table) 05/23/18 05/23/18 05/24/18 Range/Units 11:50 15:15 06:17 RBC 3.64 L 3.14 L (3.80-5.40) m/uL Hgb 10.3 L 8.8 L D (11.4-16.0) gm/dL Hct 33.0 L 28.1 L (34.0-46.0) % Plt Count 472 H (150-450) k/uL Glucose 128 H (74-99) mg/dL 05/24/18 Range/Units 06:17 RBC (3.80-5.40) m/uL Hgb (11.4-16.0) gm/dL Hct (34.0-46.0) % Plt Count (150-450) k/uL Glucose 104 H (74-99) mg/dL Microbiology - Last 24 Hours (Table) 05/23/18 13:05 Gram Stain - Preliminary Thoracic Fluid Body Fluid Culture - Preliminary 05/23/18 13:05 Anaerobic Culture - Preliminary Thoracentesis Fluid - Imaging and Cardiology Chest x-ray: report reviewed, image reviewed Assessment and Plan (1) Pleural effusion, left Current Visit: Yes Status: Acute Code(s): J90 - PLEURAL EFFUSION, NOT ELSEWHERE CLASSIFIED SNOMED Code(s): 46723372 (2) Atrial fibrillation Current Visit: Yes Status: Chronic Code(s): I48.91 - UNSPECIFIED ATRIAL FIBRILLATION SNOMED Code(s): 15974519 (3) Severe mitral valve regurgitation Current Visit: No Status: Resolved Code(s): I34.0 - NONRHEUMATIC MITRAL ( VALVE) INSUFFICIENCY SNOMED Code(s): 42430934 (4) Status post mitral valve repair Current Visit: Yes Status: Chronic Code(s): Z98.890 - OTHER SPECIFIED POSTPROCEDURAL STATES SNOMED Code(s): 907849341 (5) COPD (chronic obstructive pulmonary disease) Current Visit: Yes Status: Chronic Code(s): J44.9 - CHRONIC OBSTRUCTIVE PULMONARY DISEASE, UNSPECIFIED SNOMED Code(s): 69331271 (6) Chronic anticoagulation Current Visit: Yes Status: Chronic Code(s): Z79.01 - TUNGSTEN TENDER (CURRENT) USE OF ANTICOAGULANTS SNOMED Code(s): 742307215 (7) HTN (hypertension) Current Visit: Yes Status: Chronic Code(s): I10 - ESSENTIAL (PRIMARY) HYPERTENSION SNOMED Code(s): 97025816 (8) History of anemia Current Visit: Yes Status: Chronic Code(s): Z86.2 - PRSNL HISTORY OF DIS OF THE BLD[facility]BL[facility] Code(s): 779589758 (9) Obstructive sleep apnea Current Visit: Yes Status: Chronic Code(s): G47.33 - OBSTRUCTIVE SLEEP APNEA (ADULT) (PEDIATRIC) SNOMED Code(s): 33239662 (10) Rheumatoid arthritis Current Visit: Yes Status: Chronic Code(s): M06.9 - RHEUMATOID ARTHRITIS, UNSPECIFIED SNOMED Code(s): 20858559 Plan: 1. Lopressor increased cardiology to 50 mg twice daily. Cardizem drip to be stopped. 2. Continue amiodarone, Xarelto for A. fib. 3. 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 4. Incentive spirometry ordered, encourage use 10 times every hour. 5. Continue postoperative open-heart activity restrictions. 6. Patient should shower every day. 7. Patient's heart rate is controlled this time, and patient does feel better. She should be discharged to home today. We will place post cardiac surgery discharge instructions and follow-up appointments. Time with Patient: Greater than 30
--- NOTE | 2018-05-24 09:57 | ECHOF ---
Referral Reason:Assess LV function MEASUREMENTS -------- HEIGHT: 162.6 cm WEIGHT: 106.1 kg BP: 135/82 IVSd: 1.3 cm (0.6 - 1.1) LVIDd: 4.2 cm (3.9 - 5.3) LVPWd: 1.3 cm (0.6 - 1.1) IVSs: 1.4 cm LVIDs: 2.5 cm LVPWs: 1.5 cm FINDINGS -------- Resting tachycardia (HR>100bpm). This was a technically difficult study with suboptimal views. Limited Study for assessment of left ventricular function. The left ventricular size is normal. There is mild concentric left ventricular hypertrophy. Left ventricular systolic function is hyperdynamic with an estimated EF of >70%. 3 ml of Lumason was utilized for enhancement of images. There is a trivial pericardial effusion present. CONCLUSIONS -------- 1. Resting tachycardia (HR>100bpm). 2. This was a technically difficult study with suboptimal views. 3. Limited Study for assessment of left ventricular function. 4. The left ventricular size is normal. 5. There is mild concentric left ventricular hypertrophy. 6. Left ventricular systolic function is hyperdynamic with an estimated EF of >70%. 7. 3 ml of Lumason was utilized for enhancement of images. 8. There is a trivial pericardial effusion present. SENIOR RADIATION PROTECTION TECHNICIAN: Fredo Guthrie RDCS
--- NOTE | 2018-05-24 11:12 | P.CNPUL ---
History of Present Illness Consult date: 05/24/18 Requesting physician: Julieth Edouard Reason for consult: dyspnea, abnormal CXR/CT Chief complaint: Palpitations History of present illness: This is a very pleasant 63-year-old female patient who follows with Dr. Santiago as her primary care physician. She has a history of atrial fibrillation with previous ablations and cardioversions and she had been on Cordarone and Lopressor the outpatient setting. She is on Xarelto. History of GI bleed related to antral ulcer, vertigo, suspected meningioma of the liver, obstructive sleep apnea not utilizing CPAP, hypertension, rheumatoid arthritis. She also recently had undergone mitral valve repair and maze procedure on 04/2018. She recovered well and was seen by Dr. Gray this week in the office for follow-up. She was found to have a significant left-sided pleural effusion and was brought into the outpatient center for thoracentesis yesterday that was completed with 800 ML's of turbid dark red bloody fluid returned. Postprocedure chest x-ray showed no evidence of pneumothorax. Pathology is pending. Following the procedure however she went into atrial fibrillation with a rapid ventricular response with a heart rate in the 130s and was admitted for the same. She was initiated on a Cardizem drip. Echocardiogram revealed preserved left ventricular systolic function with ejection fraction greater than 70%. Somewhat hyperdynamic. She is seen today on the selective care unit. She is currently sitting up in a chair at the bedside. She is awake and alert in no acute distress. She denies any chest pain, palpitations, lightheadedness or dizziness. No shortness of breath, cough or congestion. Current heart rate 107. She's afebrile. Blood pressure stable. Maintaining good O2 saturations in the 90s on room air. White count 7.6. Hemoglobin 8.8. Creatinine 0.63. Review of Systems Constitutional: Reports weakness Eyes: denies blurred vision, denies decreased vision Ears: deny: decreased hearing Ears, nose, mouth and throat: Denies headache, Denies sore throat Cardiovascular: Reports decreased exercise tolerance, Reports dyspnea on exertion, Reports irregular heart beat, Reports lightheadedness, Reports palpitations, Reports shortness of breath Respiratory: Reports dyspnea Gastrointestinal: Denies abdominal pain, Denies diarrhea, Denies nausea, Denies vomiting Genitourinary: Denies dysuria, Denies hematuria Musculoskeletal: Denies myalgias Integumentary: Denies pruritus, Denies rash Neurological: Denies numbness, Denies weakness Psychiatric: Denies anxiety, Denies depression Endocrine: Denies fatigue, Denies weight change Hematologic/Lymphatic: Reports as per HPI Allergic/Immunologic: Reports as per HPI Past Medical History Past Medical History: Atrial Fibrillation, Chest Pain / Angina, Heart Failure, GI Bleed, Hypertension, Rheumatoid Arthritis (RA), Sleep Apnea/CPAP/BIPAP Additional Past Medical History / Comment(s): History of atrial fibrillation post-ablation and cardioversions, recent hospitalization for GI bleeds related to a antral ulcer, anemia secondary to GI bleed, vertigo, liver lesion probably a meningioma and the patient will be having an outpatient MRI at a later stage, not currently using CPAP History of Any Multi-Drug Resistant Organisms: MRSA Date of last positivie culture/infection: 06/23/05 MDRO Source:: lt arm Past Surgical History: Appendectomy, Section, Heart Catheterization, Hysterectomy, Joint Replacement, Orthopedic Surgery, Tubal Ligation Additional Past Surgical History / Comment(s): 7 KNEE SURGERIES= 0NE LEFT KNEE ARTHROSCOPY, and 5 RT KNEE ARTHROSCOPIES THEN TOTAL RT KNEE DONE & THEN TOTAL REVISION TO RT KNEE , PLACIDO. ACHILLES TENDON SURGERY- HAS SCREWS IN PLACIDO. HEELS, EYE SURGERY A CHILD(STRABISMUS), DENTAL IMPLANT BOTTOM LT., COLONOSCOPY, right shoulder sx x2 05/23/18 left thorancentesis Past Anesthesia/Blood Transfusion Reactions: Previous Problems w/ Anesthesia, Family History of Problems w/ Anesthesia, Postoperative Nausea & Vomiting (PONV) Additional Past Anesthesia/Blood Transfusion Reaction / Comment(s): PT & HER MOTHER HAVE HX PONV Past Psychological History: No Psychological Hx Reported Additional Psychological History / Comment(s): Pt resides with her spouse. She is independent. She uses no assistive device. She drives. Smoking Status: Never smoker Past Alcohol Use History: Rare Past Drug Use History: None Reported - Past Family History Mother Family Medical History: Congestive Heart Failure (CHF), Diabetes Mellitus Additional Family Medical History / Comment(s): History of spinal stenosis, heavy smoker and IDDM. Mother at age 73yrs. Father Family Medical History: Diabetes Mellitus, Hypertension Additional Family Medical History / Comment(s): Heavy smoker, Father in his late 60's or early 70's. Medications and Allergies Home Medications Medication Instructions Recorded Confirmed Type Rivaroxaban [Xarelto] 20 mg PO HS 02/16/15 05/23/18 History Furosemide [Lasix] 40 mg PO BID #0 04/26/18 05/23/18 Rx Potassium Chloride [Klor-Con 20] 20 meq PO BID #0 04/26/18 05/23/18 Rx Ferrous Sulfate [Iron (65 MG 325 mg PO TID-W/MEALS tab 05/10/18 05/23/18 Rx Elemental)] Metoprolol Tartrate [Lopressor] 25 mg PO TID tab 05/10/18 05/23/18 Rx Pantoprazole [Protonix] 40 mg PO AC-BID tablet.dr 05/10/18 05/23/18 Rx guaiFENesin [Mucinex] 600 mg PO Q12HR PRN tablet.er 05/10/18 05/23/18 Rx Amiodarone [Cordarone] 200 mg PO BID 05/23/18 05/23/18 History Aspirin [Adult Low Dose Aspirin EC] 81 mg PO DAILY 05/23/18 05/23/18 History HYDROcodone/APAP 5-325MG [[place] 1 tab PO QID PRN 05/23/18 05/23/18 History 5-325] Sennosides-Docusate Sodium 2 tab PO HS 05/23/18 05/23/18 History [Senokot-S] Allergies Allergy/AdvReac Type Severity Reaction Status Date / Time No Known Allergies Allergy Verified 05/23/18 17:28 Physical Exam Vitals: Vital Signs Temp Pulse Pulse Pulse Resp BP BP 05/24/18 08:00 98.0 F 107 H 17 114/73 05/24/18 04:00 115 H 17 114/74 05/24/18 00:00 98.3 F 113 H 18 143/76 05/23/18 20:00 99 F 123 H 18 125/63 05/23/18 19:28 22 05/23/18 16:59 97.1 F L 130 H 22 126/71 05/23/18 15:40 122 H 16 118/72 05/23/18 15:10 126 H 18 116/72 05/23/18 14:58 125 H 16 119/74 05/23/18 14:55 130 H 16 106/84 05/23/18 14:00 128 H 16 123/72 05/23/18 13:10 125 H 16 124/77 05/23/18 12:41 130 H 16 135/82 05/23/18 11:12 124 H 18 122/92 05/23/18 11:11 98.8 F 120 H 18 122/92 Pulse Ox 05/24/18 08:00 95 05/24/18 04:00 96 05/24/18 00:00 95 05/23/18 20:00 95 05/23/18 19:28 05/23/18 16:59 96 05/23/18 15:40 05/23/18 15:10 98 05/23/18 14:58 100 05/23/18 14:55 97 05/23/18 14:00 98 05/23/18 13:10 05/23/18 12:41 97 05/23/18 11:12 97 05/23/18 11:11 98 Intake and Output 05/23/18 05/24/18 05/24/18 22:59 06:59 14:59 Intake Total 423.833 Balance 423.833 Intake: Intake, IV Titration 43.833 Amount Diltiazem 50 mg In Sodium 43.833 Chloride 0.9% 40 ml @ 5 MG/HR 5 mls/hr IV .Q10H [facility] Rx#:[id number] Oral 380 Other: Voiding Method Toilet Toilet # Voids 1 1 1 # Bowel Movements 0 Weight 106 kg 105.6 kg GENERAL EXAM: Alert, active, comfortable in no apparent distress. HEAD: Normocephalic. EYES: Normal reaction of pupils, equal size. NOSE: Clear with pink turbinates. THROAT: No erythema or exudates. NECK: No masses, no JVD. CHEST: Sternal incision clean dry well approximated. No chest wall deformity. LUNGS: Equal air entry with crackles in left posterior base. CVS: S1 and S2 normal with no audible murmur, regular rhythm. ABDOMEN: No hepatosplenomegaly, normal bowel sounds, no guarding or rigidity. SPINE: No scoliosis or deformity SKIN: No rashes CENTRAL NERVOUS SYSTEM: No focal deficits, tone is normal in all 4 extremities. EXTREMITIES: There is no peripheral edema. No clubbing, no cyanosis. Peripheral pulses are intact. Results - Laboratory Findings CBC and BMP: 05/24/18 06:17 05/24/18 06:17 Abnormal lab findings: Abnormal Labs 05/23/18 05/23/18 05/24/18 11:50 15:15 06:17 RBC 3.64 L 3.14 L Hgb 10.3 L 8.8 L D Hct 33.0 L 28.1 L Plt Count 472 H Glucose 128 H 05/24/18 06:17 RBC Hgb Hct Plt Count Glucose 104 H - Diagnostic Findings Chest x-ray: image reviewed Assessment and Plan Assessment: Impression: #1 Atrial fibrillation with a rapid ventricular response initially requiring a Cardizem drip. #2 Dyspnea secondary to left-sided pleural effusion. Status post thoracentesis on 05/23/2018 with 800 ML's turbid bloody fluid returned. Fluid analysis and pathology pending. #3 Recent mitral valve repair on 05/02/2018. #4 History of atrial fibrillation with previous ablation and multiple cardioversions. Maintained on Cordarone, metoprolol, Xarelto in the outpatient setting. #5 History of obstructive sleep apnea not utilizing CPAP in the outpatient setting. #6 Hypertension. #7 Rheumatoid arthritis. #8 History of GI bleeds related to antral ulcer. #9 Liver lesion suspect to be meningioma. Plan: The patient was seen and evaluated by Dr. Tipton. She is currently stable from the pulmonary standpoint. Chest x-rays reviewed. No evidence of pneumothorax. Maintaining good O2 saturations in the mid 90s on room air. Heart rate is better controlled. Cardiology is following. She's been resumed on Cordarone, metoprolol and Xarelto. She is cleared for discharge once cleared by cardiology. She will follow up with Dr. Gray in our office in 1-2 weeks' time. I, the cosigning physician, performed a history & physical examination of the patient. Lungs sounds with faint crackles in left posterior base. Maintaining good O2 saturations in the 90s on room air. I discussed the assessment and plan of care with my nurse practitioner, Audrey Santiago. I attest to the above consultation as dictated by her.
[2018-05-24 15:27] VITALS: BP 104/72; PULSE 95; TEMP 98
--- NOTE | 2018-05-28 18:40 | P.DS ---
Providers Date of admission: 05/23/18 17:13 Attending physician: Julieth Edouard Consults: 05/23/18 16:43 Consult Physician Stat Consulting Provider: Caro Victor Consult Reason/Comments: A fib Do you want consulting provider notified?: Yes 05/23/18 17:42 Consult Physician Routine Consulting Provider: Judi Gray Consult Reason/Comments: pleural effusion Do you want consulting provider notified?: Yes 05/23/18 17:43 Consult Physician Routine Consulting Provider: Torrey Horowitz Consult Reason/Comments: cabg less than 30 days ago Do you want consulting provider notified?: Yes Primary care physician: Stated None Hospital Course: Final Diagnoses: Paroxysmal atrial fibrillation with rapid regular rate. Shortness of breath worsening due to left pleural effusion. Status post paracentesis with 800 mL of dark fluid removal. Paroxysmal atrial fibrillation with history of ablation and multiple cardioversions. On anticoagulation with xarelto at home. Status post mitral valve repair modified maze on 05/02/2018 Rheumatoid arthritis Hypertension Obstructive sleep apnea on CPAP at home Liver lesion possibly hemangioma History of GI bleed in April 2018 status post EGD showing clean based antral ulcer morbid obesity with BMI 40.1 Lifelong nonsmoker Hospital course: Patient is a 63-year-old female with a known history of paroxysmal atrial fibrillation status post ablation and multiple cardioversions on anticoagulation with xarelto, mitral valve repair on 05/02/2018, recent Mauricio- Maze procedure, history of GI bleed with large clean-based ulcer in the antrum of the stomach earlier this month, rheumatoid arthritis, hypertension, hyperlipidemia, obstructive sleep apnea on CPAP at home, moderate COPD and multiple other medical problems initially presented to outpatient thoracentesis due to worsening shortness of breath and left-sided pleural effusion. Chest x- ray showed a large pleural effusion on the left side. Patient had thoracentesis with 800 mL of dark fluid was drained. Postprocedure patient went into atrial fibrillation with aberrant Rate up to 130s. Patient was admitted to the hospital for further management and cardiology evaluation. Patient does take metoprolol 3 times daily and is also on anticoagulation with xarelto at home. Currently patient denied any complaints of chest pain. Patient does have shortness of breath and some lightheadedness. No nausea vomiting or abdominal pain. No diarrhea or dysuria. Denied any recent illnesses. Patient was discharged home on 05/10/2018 from recent admission for mitral valve repair.. Patient was seen and examined at the outpatient procedure unit. Evaluated by a cardiology, cardiothoracic surgery, pulmonary. Chest x-rays reviewed reporting no evidence of pneumothorax, maintaining O2 sats in the mid 90s on room air. IV Cardizem drip discontinued, Beta miguel angel increased. Significant clinical improvement. Cleared by all consults for discharge. Patient is being discharged home in a stable condition with guarded prognosis. GENERAL EXAM: Alert and oriented 3, no acute distress CHEST: Sternal incision clean dry well approximated. No chest wall deformity. LUNGS: Equal air entry with crackles in left posterior base. CVS: S1 and S2 normal with no audible murmur, regular rhythm. ABDOMEN: No hepatosplenomegaly, normal bowel sounds, no guarding or rigidity. NERVOUS SYSTEM: No focal deficits, tone is normal in all 4 extremities. The impression and plan of care has been dictated as directed. : I performed a history and examination of this patient, discussed the same with the dictator. I agree with the dictator's note ,documented as a scribe. Any additional findings or plans will be noted. Time taken: 35 minutes Patient Condition at Discharge: Stable Plan - Discharge Summary Discharge Rx Participant: Yes New Discharge Prescriptions: New Colchicine [Colcrys] 0.6 mg PO BID #8 each Metoprolol Tartrate [Lopressor] 50 mg PO BID #60 tab Continue Rivaroxaban [Xarelto] 20 mg PO HS Furosemide [Lasix] 40 mg PO BID #0 Potassium Chloride [Klor-Con 20] 20 meq PO BID #0 Ferrous Sulfate [Iron (65 MG Elemental)] 325 mg PO TID-W/MEALS tab guaiFENesin [Mucinex] 600 mg PO Q12HR PRN tablet.er PRN Reason: Cough Pantoprazole [Protonix] 40 mg PO AC-BID tablet. Amiodarone [Cordarone] 200 mg PO BID Aspirin [Adult Low Dose Aspirin EC] 81 mg PO DAILY HYDROcodone/APAP 5-325MG [[place] 5-325] 1 tab PO QID PRN PRN Reason: Pain Sennosides-Docusate Sodium [Senokot-S] 2 tab PO HS Discontinued Metoprolol Tartrate [Lopressor] 25 mg PO TID tab Discharge Medication List Rivaroxaban [Xarelto] 20 mg PO HS 02/16/15 [History] Furosemide [Lasix] 40 mg PO BID #0 04/26/18 [Rx] Potassium Chloride [Klor-Con 20] 20 meq PO BID #0 04/26/18 [Rx] Ferrous Sulfate [Iron (65 MG Elemental)] 325 mg PO TID-W/MEALS tab 05/10/18 [Rx ] Pantoprazole [Protonix] 40 mg PO AC-BID tablet.dr 05/10/18 [Rx] guaiFENesin [Mucinex] 600 mg PO Q12HR PRN tablet.er 05/10/18 [Rx] Amiodarone [Cordarone] 200 mg PO BID 05/23/18 [History] Aspirin [Adult Low Dose Aspirin EC] 81 mg PO DAILY 05/23/18 [History] HYDROcodone/APAP 5-325MG [[place] 5-325] 1 tab PO QID PRN 05/23/18 [History] Sennosides-Docusate Sodium [Senokot-S] 2 tab PO HS 05/23/18 [History] Colchicine [Colcrys] 0.6 mg PO BID #8 each 05/24/18 [Rx] Metoprolol Tartrate [Lopressor] 50 mg PO BID #60 tab 05/24/18 [Rx] Follow up Appointment(s)/Referral(s): Caro Victor MD [STAFF PHYSICIAN] - 1 Week (Please call and make follow up appointment during normal business hours. ) Jewel Santiago MD [REFERRING] - 3 Days (Please call to make follow up appointment during normal business hours. ) Torrey Horowitz MD [STAFF PHYSICIAN] - 05/31/18 1:00 pm Judi Gray MD [STAFF PHYSICIAN] - 06/01/18 1:15 pm (Please keep previous appointment.) Ambulatory/Diagnostic Orders: Complete Blood Count w/diff [LAB.AMB] Time Frame: 3 Days, Location: None Selected Patient Instructions/Handouts: A-fib (Atrial Fibrillation) (DC), Thoracentesis (DC) Activity/Diet/Wound Care/Special Instructions: DISCHARGE INSTRUCTIONS: 1. No driving for 4 weeks, or until physician gives their ok. 2. The patient should sleep in their own bed, no medical bed needed. 3. Stairs are not an issue. If the bedroom is upstairs, it is advised that the patient go up at night and down in the morning for the first week. Go slowly, using handrail and take 1 step at a time. 4. FACUNDO hose are to be worn for 30 days or until physician discontinues. 5. Heart hugger is to be worn 100% of the time until physician discontinues.( except when showering) 6. No lifting, pushing, or pulling more than 10 pounds for 12 weeks. The physician will advise of any restriction changes. 7. The patient is expected to continue the prescribed walking program. 8. Continue pain control per as needed orders. 9. Continue with incentive spirometry and splinting/heart hugger until otherwise directed by the physician. 10. Must shower daily using liquid antibacterial soap and a separate white washcloth for each individual incision. 11. Routine sternal incision care. No powders, lotions, ointments on incisions. 12. Please call surgeon/PHYSICS INSTRUCTOR for temp greater than 101 F or purulent drainage from incisions. 13. A Red armband has been placed on the patient. It should be worn for 30 days post surgery and will be removed by the cardiac surgeons. If an ER visit is necessary, please make sure the number on the Red armband is called. Discharge Disposition: HOME SELF-CARE
== END 2018-05-24 18:25 | disposition home or self-care (01) ==
LOC: PROCWHC3 11:06 → 3SCARD 16:43 → PROCWHC3 17:00 → 3SCARD 17:13
PROVIDERS: ADMIT Internal Medicine; ATTEND Internal Medicine
DX: I48.0 Paroxysmal atrial fibrillation (principal); R18.8 Other ascites; I34.0 Nonrheumatic mitral (valve) insufficiency; R06.02 Shortness of breath; I25.10 Atherosclerotic heart disease of native coronary artery without angina pectoris; I11.0 Hypertensive heart disease with heart failure; I50.9 Heart failure, unspecified; D50.0 Iron deficiency anemia secondary to blood loss (chronic); K25.4 Chronic or unspecified gastric ulcer with hemorrhage; M06.9 Rheumatoid arthritis, unspecified; G47.33 Obstructive sleep apnea (adult) (pediatric); Z86.14 Personal history of Methicillin resistant Staphylococcus aureus infection; Z87.11 Personal history of peptic ulcer disease; J44.9 Chronic obstructive pulmonary disease, unspecified; K76.9 Liver disease, unspecified; Z95.1 Presence of aortocoronary bypass graft; Z86.011 Personal history of benign neoplasm of the brain; Z82.49 Family history of ischemic heart disease and other diseases of the circulatory system; E66.01 Morbid (severe) obesity due to excess calories; Z68.41 Body mass index [BMI] 40.0-44.9, adult; E78.5 Hyperlipidemia, unspecified; I44.7 Left bundle-branch block, unspecified; Z79.01 Long term (current) use of anticoagulants; Z79.82 Long term (current) use of aspirin; Z79.899 Other long term (current) drug therapy
CPT/HCPCS: 96365 ×2; 96376 ×4; 96375; 93308; 93005; 88108; 88305; 84315; 80053; 80048; 89050; 83735; 85025 ×2; 87070; 87205; 87075; 83615; 84157; 71045; 96374; 99214; 36415; 32554; G0378 ×2; J1885 ×2; Q9950

== ENCOUNTER → 2018-05-23 | Outpatient (CLI) | payer BC ==
--- NOTE | 2018-05-23 12:10 | US ---
EXAMINATION TYPE: US chest DATE OF EXAM: 05/23/2018 COMPARISON: NONE CLINICAL HISTORY: J90 Pleural Effusion. TECHNIQUE: Targeted ultrasound of the posterior lower left hemithorax EXAM MEASUREMENTS: Left Pleural Effusion pocket size: 9.7 cm Left skin surface to fluid distance: 4.2 cm Left side marked for possible thoracentesis outside the dept. Pulmonologists are able to review the images in the patient?s EMR. IMPRESSIONS: Pleural effusion as noted
--- NOTE | 2018-05-25 12:38 | P.PCN ---
Date of Procedure: 05/25/18 Preoperative Diagnosis: left-sided pleural effusion Postoperative Diagnosis: left-sided pleural effusion Procedure(s) Performed: Thoracentesis Anesthesia: local Surgeon: Judi Gray Estimated Blood Loss (ml): 0 Pathology: other Condition: stable Disposition: observation Operative Findings: 63-year-old female patient who was brought in order left-sided thoracentesis. The procedure including the potential complication was explained to the patient. The patient was positioned in the usual fashion with a left chest cleaned with ChloraPrep. Following that, using ultrasound guidance, a thoracentesis of the left hemithorax was done. The skin was first infused and infiltrated with 1% lidocaine. Following that the skin was incised using a scalpel. I was able to introduce a thoracentesis catheter into the left hemithorax and a total of 800 mL of pleural fluid was aspirated and the pleural fluid was turbid dark yellowish in color. No complications. Chest x-ray showed no evidence of any pneumothorax.
== END | disposition home or self-care (01) ==
LOC: RADUSWWP 10:32
PROVIDERS: ATTEND Internal Medicine Critical Care Medicine
DX: J90 Pleural effusion, not elsewhere classified (principal)
CPT/HCPCS: 76604

== ENCOUNTER → 2020-08-05 | Outpatient (CLI) | payer MEDICARE ==
--- NOTE | 2020-08-06 10:26 | NM ---
EXAMINATION TYPE: NM thyroid image w uptake DATE OF EXAM: 08/06/2020 COMPARISON: NONE HISTORY: Thyrotoxicosis TECHNIQUE: Thyroid iodine uptake is calculated and images performed after the oral administration of 300 uCi 1-123 Capsule. FINDINGS: There is localized intense uptake involving the lower pole the right thyroid. Reduced uptak e and remaining portion of the right thyroid in the entire left lobe.. The 4 hour iodine uptake is c alculated at 2.3% (normal range 8-14%). The 24-hour iodine uptake is calculated at 4.3% (normal range 15-35%). IMPRESSION: 1. Hot nodule mid and lower pole right thyroid. Findings suggest autonomously functioning right lower lobe and right nodule suppression of the remaining portion of the thyroid and secondary hypothyroidi sm. Ultrasound recommended
== END | disposition home or self-care (01) ==
LOC: RADNMMAIN 08:37
PROVIDERS: ATTEND Internal Medicine Endocrinology, Diabetes & Metabolism
DX: E04.1 Nontoxic single thyroid nodule (principal)
CPT/HCPCS: 78014; A9516

== ENCOUNTER 2020-09-22 11:43 | Day surgery (SDC) | payer MEDICARE ==
[2020-09-22] MEDS ORDERED: ALPRAZolam 0.25 MG TAB PO PRN (12:01)
[2020-09-22 12:31] VITALS: TEMP 97.8
[2020-09-22 14:16] VITALS: BP 150/68; PULSE 70; RESP 18
--- NOTE | 2020-09-22 16:02 | US ---
EXAMINATION TYPE: US FNA thyroid first lesion DATE OF EXAM: 09/22/2020 COMPARISON: Patient's previous thyroid ultrasound is unavailable for correlation HISTORY: Thyroid nodule. Maximal barrier technique was utilized. After informed consent, skin overlying the left lobe dominan t thyroid nodule was localized with ultrasound and the overlying skin prepped and draped. Ultrasound was utilized using sterile technique. Lidocaine was used for local anesthesia. Five passes with a 25 -gauge needle were made into the nodule and aspirated specimen was submitted to cytology. Following the procedure hemostasis achieved. No immediate complication. The patient discharged in stable cond ition. IMPRESSION: STATUS POST ULTRASOUND GUIDED FINE NEEDLE ASPIRATION OF LEFT THYROID NODULE, PATHOLOGY IS PENDING. THIS PROCEDURE WAS PERFORMED BY THE UNDERSIGNED.
== END 2020-09-22 14:12 | disposition home or self-care (01) ==
LOC: RADPROMAIN 11:43
PROVIDERS: ATTEND Otolaryngology
DX: E04.1 Nontoxic single thyroid nodule (principal); M19.90 Unspecified osteoarthritis, unspecified site; I10 Essential (primary) hypertension; H93.19 Tinnitus, unspecified ear; G43.909 Migraine, unspecified, not intractable, without status migrainosus; Z90.710 Acquired absence of both cervix and uterus; E05.90 Thyrotoxicosis, unspecified without thyrotoxic crisis or storm; Z98.891 History of uterine scar from previous surgery; Z90.89 Acquired absence of other organs; Z79.1 Long term (current) use of non-steroidal anti-inflammatories (NSAID); Z79.891 Long term (current) use of opiate analgesic; Z79.899 Other long term (current) drug therapy
CPT/HCPCS: 10005; 88173; 88305

== ENCOUNTER → 2020-10-02 | Outpatient (CLI) | payer MEDICARE | END | disposition home or self-care (01) | LOC: LABT 09:14 | PROVIDERS: ATTEND Otolaryngology | DX: Z01.812 Encounter for preprocedural laboratory examination (principal); Z20.822 Contact with and (suspected) exposure to COVID-19 | CPT/HCPCS: U0003; U0005 ==

== ENCOUNTER 2023-09-15 20:18 | Inpatient (IN) | payer MEDICARE ==
[2023-09-15] MEDS: ACETAMINOPHEN TAB 325 MG TAB PO STA (21:17)
[2023-09-15 21:28] LABS: Basophils % (A) 0 %; Eosinophils # (A) 0.1 k/uL (0-0.7); Eosinophils % (A) 1 %; HCT 37.5 % (34.0-46.0); HGB 12.8 gm/dL (11.4-16.0); Lymphocytes # (A) 0.8 k/uL (1.0-4.8); Lymphocytes % (A) 5 %; MCH 30.2 pg (25.0-35.0); MCHC 34.1 g/dL (31.0-37.0); MCV 88.5 fL (80.0-100.0); Mean Platelet Volume 8.6; Monocytes # (A) 0.8 k/uL (0-1.0); Monocytes % (A) 4 %; Neutrophils # (A) 16.9 k/uL (1.3-7.7); Neutrophils % (A) 90 %; Platelet Count 204 k/uL (150-450); RBC 4.24 m/uL (3.80-5.40); RDW 13.1 % (11.5-15.5); WBC 18.8 k/uL (3.8-10.6)
[2023-09-15 21:35] LABS: ALT 24 U/L (4-34); AST 25 U/L (14-36); African American GFR (CKD) >90 (>60 ml/min/1.73 sqM); Albumin 4.3 g/dL (3.5-5.0); Alkaline Phosphatase 96 U/L (38-126); Anion Gap 11 mmol/L; Blood Urea Nitrogen 19 mg/dL (7-17); Carbon Dioxide 22 mmol/L (22-30); Chloride 105 mmol/L (98-107); Glucose 139 mg/dL (74-99); Magnesium 1.9 mg/dL (1.6-2.3); Non-African American GFR(CKD) 79 (>60 ml/min/1.73 sqM); Potassium 4.6 mmol/L (3.5-5.1); Sodium 138 mmol/L (137-145); Total Bilirubin 0.7 mg/dL (0.2-1.3); Total Protein 7.6 g/dL (6.3-8.2)
[2023-09-15 21:40] LABS: Partial Thromboplastin Time 24.6 sec (22.0-30.0); Prothrombin Time 10.9 sec (10.0-12.5)
--- NOTE | 2023-09-15 22:10 | CT ---
EXAMINATION TYPE: CT brain wo con CT DLP: 1239.4 mGycm, Automated exposure control for dose reduction was used. DATE OF EXAM: 09/15/2023 9:39 PM COMPARISON: 02/20/2015. CLINICAL INDICATION:Female, 68 years old with history of altered mental status, AMS with chest pain TECHNIQUE: Brain: Axial CT images of the brain were obtained with coronal and sagittal reformats created and rev iewed. Contrast used: None. Oral contrast used: None. FINDINGS: Brain: Extra-axial spaces: No abnormal extra-axial fluid collections. Ventricular system: Within normal limits Cerebral parenchyma: No acute intraparenchymal hemorrhage or mass effect. The parry-white junction is well differentiated. Cerebellum: Unremarkable. Mass effect: No evidence of midline shift. Intracranial vasculature: Atherosclerotic calcifications of the intracranial vessels. Soft tissues: Normal. Calvarium/osseous structures: No depressed skull fracture. Paranasal sinuses and mastoid air cells: Mild scattered paranasal sinus disease. Visualized orbits: Bilateral aphakia IMPRESSION: No acute intracranial process.
--- NOTE | 2023-09-15 22:11 | XR ---
EXAMINATION TYPE: XR chest 2V DATE OF EXAM: 09/15/2023 9:40 PM CLINICAL INDICATION:Female, 68 years old with history of Chest Pain; [facility] COMPARISON: Chest radiographs from 05/23/2018 TECHNIQUE: XR chest 2V Frontal and lateral views of the chest. FINDINGS: Lungs/Pleura: There is no evidence of pleural effusion, focal consolidation, or pneumothorax. Pulmonary vascularity: Pulmonary vascular congestion. Heart/mediastinum: Cardiomediastinal silhouette is enlarged and stable. Valvular repair changes. Musculoskeletal: No acute osseous pathology. Midline sternotomy wires are noted. Other findings: None IMPRESSION: Cardiomegaly and mild pulmonary vascular congestion. Correlate with BNP for congestive heart failure.
[2023-09-15] MEDS: FUROSEMIDE 10 MG/ML 10 ML VIAL IV STA (22:29)
--- NOTE | 2023-09-15 23:47 | ED ---
Chest Pain [facility] - General Chief Complaint: Chest Pain Stated Complaint: Liturgy Source: patient, family, EMS Mode of arrival: EMS Limitations: altered mental status - History of Present Illness Initial Comments: This patient is a 68-year-old woman brought to have evaluation for constellation of symptoms that developed over the course of today. The patient is accompanied by family members. Her states he had left home this morning and the patient was doing fairly well, when he returned at 4 PM she was complaining of generalized weakness and fatigue, chest pain, shortness of breath. They were not able to get her up and they called ambulance to bring her here. When I see the patient she indicates substernal pain. She has a difficult time characterizing it. She states it is moderate to severe, she has not noted worsening or relieving factors. MD Complaint: chest pain -: hour(s) Onset: during rest Pain Location: substernal Pain Radiation: LUE Severity: moderate Quality: aching Consistency: constant Improves With: nothing Worsens With: nothing Anginal Symptoms: dyspnea Treatments Prior to Arrival: none - Related Data Home Medications Medication Instructions Recorded Confirmed Rivaroxaban [Xarelto] 20 mg PO DAILY@1600 02/16/15 09/16/23 Aspirin [Adult Low Dose Aspirin EC] 81 mg PO DAILY 09/11/20 09/16/23 Multivit-Min/Iron/Folic/Lutein 1 tab PO DAILY 09/11/20 09/16/23 [Centrum Silver Women Tablet] lisinopriL [Zestril] 5 mg PO DAILY 09/11/20 09/16/23 Ag1 1 dose PO DAILY 09/16/23 09/16/23 Collagen(Unknown) 1 cap PO DAILY 09/16/23 09/16/23 Flecainide Acetate [Tambocor] 50 mg PO HS 09/16/23 09/16/23 Flecainide Acetate [Tambocor] 100 mg PO DAILY 09/16/23 09/16/23 Letrozole [Femara] 2.5 mg PO DAILY 09/16/23 09/16/23 Levothyroxine Sodium [Synthroid] 25 mcg PO MOTUWE 09/16/23 09/18/23 Levothyroxine Sodium [Synthroid] 50 mcg PO SUTHFRSA 09/16/23 09/18/23 Metoprolol Succinate (ER) [Toprol 50 mg PO BID 09/16/23 09/16/23 XL] Pantoprazole [Protonix] 40 mg PO DAILY 09/16/23 09/16/23 Rosuvastatin [Crestor] 10 mg PO DAILY 09/16/23 09/16/23 Vitamin E (Dl,Tocopheryl Acet) 400 unit PO DAILY 09/16/23 09/16/23 [Vitamin E (400 Iu = 180 mg)] Previous Rx's Medication Instructions Recorded Cephalexin [Keflex] 500 mg PO Q6HR 10 Days #40 cap 09/20/23 Nystatin 100,000 Unit/gm Powd 1 applic TOPICAL BID #30 gm 09/20/23 [Mycostatin Powder] Acetaminophen Tab [Tylenol] 325 mg PO Q6HR PRN tab 09/22/23 Psyllium Husk 100% [Metamucil 6 gm PO BID packet 09/22/23 Packet] Allergies Allergy/AdvReac Type Severity Reaction Status Date / Time No Known Allergies Allergy Verified 09/16/23 17:00 Review of Systems ROS Statement: Those systems with pertinent positive or pertinent negative responses have been documented in the HPI. ROS Other: All systems not noted in ROS Statement are negative. Constitutional: Reports: weakness. Denies: fever, chills Respiratory: Reports: dyspnea. Denies: cough, wheezes, hemoptysis Cardiovascular: Reports: chest pain. Denies: palpitations, orthopnea, edema, syncope Gastrointestinal: Denies: abdominal pain, nausea, vomiting, diarrhea Genitourinary: Denies: dysuria, hematuria Musculoskeletal: Denies: back pain Skin: Denies: rash Neurological: Denies: headache, weakness, numbness EKG Findings - EKG Results: EKG: interpreted by ERMD, sinus rhythm (Rate 81 bpm), normal axis, normal ST/T - Blocks, [place], Hypertrophy, ST Abn: AV and intraventricular conduction: intraventricular conduction delay Past Medical History Past Medical History: Atrial Fibrillation, Chest Pain / Angina, Heart Failure, GI Bleed, Hypertension, Rheumatoid Arthritis (RA), Sleep Apnea/CPAP/BIPAP, Thyroid Disorder Additional Past Medical History / Comment(s): History of atrial fibrillation post-ablation and cardioversions, recent hospitalization for GI bleeds related to a antral ulcer, anemia secondary to GI bleed, vertigo, liver lesion probably a meningioma and the patient will be having an outpatient MRI at a later stage, not currently using CPAP History of Any Multi-Drug Resistant Organisms: MRSA Date of last positivie culture/infection: 06/23/05 MDRO Source:: lt arm Past Surgical History: Appendectomy, Section, Coronary Bypass/CABG, Heart Catheterization, Hysterectomy, Joint Replacement, Orthopedic Surgery, Tubal Ligation Additional Past Surgical History / Comment(s): 7 KNEE SURGERIES= 0NE LEFT KNEE ARTHROSCOPY, and 5 RT KNEE ARTHROSCOPIES THEN TOTAL RT KNEE DONE & THEN TOTAL REVISION TO RT KNEE , PLACIDO. ACHILLES TENDON SURGERY- HAS SCREWS IN PLACIDO. HEELS, EYE SURGERY A CHILD(STRABISMUS), DENTAL IMPLANT BOTTOM LT., COLONOSCOPY, right shoulder sx x2 05/23/18 left thorancentesis Past Anesthesia/Blood Transfusion Reactions: Previous Problems w/ Anesthesia, Family History of Problems w/ Anesthesia, Postoperative Nausea & Vomiting (PONV) Additional Past Anesthesia/Blood Transfusion Reaction / Comment(s): PT & HER MOTHER HAVE HX PONV Past Psychological History: No Psychological Hx Reported Smoking Status: Never smoker Past Alcohol Use History: Rare Past Drug Use History: None Reported - Past Family History Mother Family Medical History: Congestive Heart Failure (CHF), Diabetes Mellitus Additional Family Medical History / Comment(s): History of spinal stenosis, heavy smoker and IDDM. Mother at age 73yrs. Father Family Medical History: Diabetes Mellitus, Hypertension Additional Family Medical History / Comment(s): Heavy smoker, Father in his late 60's or early 70's. General Exam Limitations: no limitations General appearance: alert, in no apparent distress Head exam: Present: atraumatic, normocephalic Eye exam: Present: normal appearance. Absent: scleral icterus, conjunctival injection Neck exam: Present: normal inspection Respiratory exam: Present: normal lung sounds bilaterally, rales (Bilateral bases). Absent: respiratory distress, wheezes, rhonchi, stridor Cardiovascular Exam: Present: regular rate, normal rhythm, systolic murmur. Absent: diastolic murmur, rubs, gallop GI/Abdominal exam: Present: soft. Absent: distended, tenderness, guarding, rebound, rigid, mass Extremities exam: Present: normal inspection, normal capillary refill. Absent: pedal edema, calf tenderness Back exam: Present: normal inspection. Absent: CVA tenderness (R), CVA tenderness (L) Neurological exam: Present: alert, oriented X3. Absent: motor sensory deficit Skin exam: Present: warm, dry, intact, normal color. Absent: rash Course Vital Signs 09/15/23 09/15/23 09/15/23 20:21 20:37 21:00 Temperature 99.5 F Pulse Rate 81 81 80 Pulse Rate [ Log Yard Manager ] Respiratory 16 16 15 Rate Blood Pressure 127/64 127/64 127/65 Blood Pressure [Right Arm] O2 Sat by Pulse 95 94 L 94 L Oximetry 09/15/23 09/15/23 09/15/23 21:22 22:00 22:32 Temperature 97.8 F Pulse Rate 77 Pulse Rate [ 79 Log Yard Manager ] Respiratory 18 Rate Blood Pressure 122/65 Blood Pressure [Right Arm] O2 Sat by Pulse 94 L Oximetry 09/15/23 09/16/23 09/16/23 23:00 00:00 01:00 Temperature Pulse Rate 76 75 73 Pulse Rate [ Log Yard Manager ] Respiratory 18 16 21 Rate Blood Pressure 122/59 123/57 106/58 Blood Pressure [Right Arm] O2 Sat by Pulse 94 L 94 L 95 Oximetry 09/16/23 09/16/23 09/16/23 02:00 03:00 04:00 Temperature 98.8 F Pulse Rate 71 71 72 Pulse Rate [ Log Yard Manager ] Respiratory 23 17 14 Rate Blood Pressure 110/60 110/67 132/63 Blood Pressure [Right Arm] O2 Sat by Pulse 100 94 L 94 L Oximetry 09/16/23 09/16/23 09/16/23 05:00 08:21 12:04 Temperature 98.5 F 98.1 F Pulse Rate 72 Pulse Rate [ 72 68 Log Yard Manager ] Respiratory 22 16 20 Rate Blood Pressure 129/57 Blood Pressure 121/68 122/58 [Right Arm] O2 Sat by Pulse 96 98 100 Oximetry 09/16/23 09/16/23 14:18 15:00 Temperature 98.0 F Pulse Rate Pulse Rate [ 66 60 Log Yard Manager ] Respiratory 16 16 Rate Blood Pressure Blood Pressure 128/62 148/76 [Right Arm] O2 Sat by Pulse 95 100 Oximetry Chest Pain MDM - MDM The patient had chest x-ray which I interpreted as negative for acute infiltrate, pneumothorax, acute bony injury The patient had CT of the brain that I interpreted as negative for acute bony injury or acute intracranial hemorrhage Was pt. sent in by a medical professional or institution (RAMONA Mccall, CLINICAL SAFETY MANAGER, urgent care, hospital, or residential...) When possible be specific @ -[No] Did you speak to anyone other than the patient for history (EMS, parent, family, police, friend...)? What history was obtained from this source @ -Family did contribute to history Did you review nursing and triage notes (agree or disagree)? Why? @ -[I reviewed and agree with nursing and triage notes] Were old charts reviewed (outside hosp., previous admission, EMS record, old EKG, old radiological studies, urgent care reports/EKG's, residential records)? Report findings @ -[No old charts were reviewed] Differential Diagnosis (chest pain, altered mental status, abdominal pain women, abdominal pain men, vaginal bleeding, weakness, fever, dyspnea, syncope, headache, dizziness, GI bleed, back pain, seizure, CVA, palpatations, mental h ealth, musculoskeletal)? @ -Differential Chest Pain: Stable Angina, Unstable Angina, STEMI, NSTEMI Aortic Dissection, Pneumothorax, Musculoskeletal, Esophageal Spasm GERD, Cholecystitis, Pancreatitis, Zoster, this is not meant to be an all-inclusive list. EKG interpreted by me (3pts min.). @ -I interpreted as above X-rays interpreted by me (1pt min.). @ -[I interpreted as above CT interpreted by me (1pt min.). @ -[I interpreted as above U/S interpreted by me (1pt. min.). @ -[None done] What testing was considered but not performed or refused? (CT, X-rays, U/S, labs)? Why? @ -[None] What meds were considered but not given or refused? Why? @ -[None] Did you discuss the management of the patient with other professionals (professionals i.e. RAMONA Mccall, CLINICAL SAFETY MANAGER, lab, RT, psych nurse, social problems specialist, operations advisor, teacher, corporate ethics officer, case monitor)? Give summary @ -Case discussed with admitting physician and treatment recommendations incorporated Was smoking cessation discussed for >3mins.? @ -[No] Was critical care preformed (if so, how long)? @ -[No] Were there social determinants of health that impacted care today? How? (Homelessness, low income, unemployed, alcoholism, drug addiction, transportation, low edu. Level, literacy, decrease access to med. care, correction, rehab)? @ -[No] Was there de-escalation of care discussed even if they declined (Discuss DNR or withdrawal of care, Hospice)? DNR status @ -[No] What co-morbidities impacted this encounter? (DM, HTN, Smoking, COPD, CAD, Cancer, CVA, ARF, Chemo, Hep., AIDS, mental health diagnosis, sleep apnea, morbid obesity)? @ -[History of hypertension, history of cardiac arrhythmia Was patient admitted / discharged? Hospital course, mention meds given and route, prescriptions, significant lab abnormalities, going to OR and other pertinent info. @ -[Patient is admitted to have telemetry monitoring, serial cardiac enzymes, cardiology consultation Undiagnosed new problem with uncertain prognosis? @ -[No] Drug Therapy requiring intensive monitoring for toxicity (Heparin, Nitro, Insulin, Cardizem)? @ -[No] Were any procedures done? @ -[No] Diagnosis/symptom? @ -Acute chest pain Acute generalized weakness Acute, or Chronic, or Acute on Chronic? @ -[Acute Uncomplicated (without systemic symptoms) or Complicated (systemic symptoms)? @ -[Uncomplicated Side effects of treatment? @ -[No] Exacerbation, Progression, or Severe Exacerbation? @ -[No] Poses a threat to life or bodily function? How? (Chest pain, [place], [place], pneumonia, PE, COPD, DKA, ARF, appy, cholecystitis, CVA, Diverticulitis, Homicidal, Suicidal, threat to staff... and all critical care pts) @ -[No] Disposition Clinical Impression: Chest pain, Generalized weakness Disposition: ADMITTED IP TO THIS HOSP Is patient prescribed a controlled substance at d/c from ED?: No
[2023-09-16] MEDS ORDERED: NITROGLYCERIN SL TABS 0.4 MG TAB SUBLINGUAL PRN (00:10)
[2023-09-16 01:54] LABS: Appearance,Urine Cloudy (Clear); Bilirubin,Urine Negative (Negative); Blood,Urine Negative (Negative); Color,Urine Colorless; Glucose,Urine (UA) Negative (Negative); Hyaline Casts,Urine 3 /lpf (0-2); Ketones,Urine Negative (Negative); Leukocyte Esterase,Urine Trace (Negative); Nitrite,Urine Negative (Negative); PH, Urine 5.5 (5.0-8.0); Protein,Urine Trace (Negative); RBC,Urine 2 /hpf (0-5); Specific Gravity,Urine 1.011 (1.001-1.035); Squamous Epithelial Cell,Urine <1 /hpf (0-4); Urobilinogen,Urine <2.0 mg/dL (<2.0); WBC,Urine 10 /hpf (0-5)
[2023-09-16] MEDS: ASPIRIN 81 MG PO SCH (08:37)
[2023-09-16] MEDS: lisinopriL 5 MG TAB PO SCH (08:37)
[2023-09-16] MEDS: POTASSIUM CHLORIDE ER 20 MEQ TAB.ER PO SCH (08:38)
[2023-09-16] MEDS: PANTOPRAZOLE 40 MG TABLET PO SCH (08:38)
[2023-09-16] MEDS: ACETAMINOPHEN TAB 325 MG TAB PO STA (09:06)
--- NOTE | 2023-09-16 11:15 | P.HPIM ---
History of Present Illness 68-year-old female came in with complaints of extreme fatigue and malaise without any fevers which started all of a sudden yesterday evening. Patient was also complaining of chest pain which appeared to be noncardiac now complaining of headache severe 6/10 in the frontal area denies any blurry vision. Troponins were negative EKG did not show any acute ST-T wave changes but consistent with ventricular conduction delay with J-point elevation and Buice biphasic QRS complexes. Patient does have leukocytosis denies any symptoms of UTI or cough chest x-ray did not show any pneumonia patient denies any abdominal pain. Blood cultures were ordered results are pending patient was given a dose of Rocephin although urine is not that impressive for urinary tract infection, only showed trace leukocyte esterase but does have hyaline casts. TSH was ordered and D- dimer was ordered. REVIEW OF SYSTEMS: Other review of systems are negative except those mentioned above The rest of the 14-point review of systems is negative. PHYSICAL EXAMINATION: GENERAL: The patient is alert and oriented x3, appears to be extremely lethargic HEENT: Pupils are round and equally reacting to light. EOMI. No scleral icterus. No conjunctival pallor. Normocephalic, atraumatic. No pharyngeal erythema. No thyromegaly. CARDIOVASCULAR: S1 and S2 present. No murmurs, rubs, or gallops. PULMONARY: Chest is clear to auscultation, no wheezing or crackles. ABDOMEN: Soft, nontender, nondistended, normoactive bowel sounds. No palpable organomegaly. MUSCULOSKELETAL: No joint swelling or deformity. EXTREMITIES: No cyanosis, clubbing, or pedal edema. NEUROLOGICAL: Gross neurological examination did not reveal any focal deficits. SKIN: No rashes. Assessment and plan -Severe lethargy, sudden onset etiology is not clear at this time considering her headache the possibilities are sepsis, encephalitis, undiagnosed viral illness, hypothyroidism, bacteremia, pulmonary embolism, sleep apnea CO2 retention. To rule rule out all these conditions blood cultures were ordered, CT of the head was negative, infectious disease will be consulted no evidence of urinary tract infection or pneumonia, will order a D-dimer, TSH, ABG. -Chest pain appears to be noncardiac cardiology was consulted -Atrial fibrillation presently sinus rhythm rate controlled on anticoagulation with Xarelto -Hypertension -Sleep apnea -Hypothyroidism: TSH was ordered For above mentioned medical problems patient will be resumed on appropriate home medications once verified DVT prophylaxis: Lovenox Past Medical History Past Medical History: Atrial Fibrillation, Chest Pain / Angina, Heart Failure, GI Bleed, Hypertension, Rheumatoid Arthritis (RA), Sleep Apnea/CPAP/BIPAP, Thyroid Disorder Additional Past Medical History / Comment(s): History of atrial fibrillation post-ablation and cardioversions, recent hospitalization for GI bleeds related to a antral ulcer, anemia secondary to GI bleed, vertigo, liver lesion probably a meningioma and the patient will be having an outpatient MRI at a later stage, not currently using CPAP History of Any Multi-Drug Resistant Organisms: MRSA Date of last positivie culture/infection: 06/23/05 MDRO Source:: lt arm Past Surgical History: Appendectomy, Section, Coronary Bypass/CABG, Heart Catheterization, Hysterectomy, Joint Replacement, Orthopedic Surgery, Tubal Ligation Additional Past Surgical History / Comment(s): 7 KNEE SURGERIES= 0NE LEFT KNEE ARTHROSCOPY, and 5 RT KNEE ARTHROSCOPIES THEN TOTAL RT KNEE DONE & THEN TOTAL REVISION TO RT KNEE , PLACIDO. ACHILLES TENDON SURGERY- HAS SCREWS IN PLACIDO. HEELS, EYE SURGERY A CHILD(STRABISMUS), DENTAL IMPLANT BOTTOM LT., COLONOSCOPY, right shoulder sx x2 05/23/18 left thorancentesis Past Anesthesia/Blood Transfusion Reactions: Previous Problems w/ Anesthesia, Family History of Problems w/ Anesthesia, Postoperative Nausea & Vomiting (PONV) Additional Past Anesthesia/Blood Transfusion Reaction / Comment(s): PT & HER MOTHER HAVE HX PONV Past Psychological History: No Psychological Hx Reported Smoking Status: Never smoker Past Alcohol Use History: Rare Past Drug Use History: None Reported - Past Family History Mother Family Medical History: Congestive Heart Failure (CHF), Diabetes Mellitus Additional Family Medical History / Comment(s): History of spinal stenosis, heavy smoker and IDDM. Mother at age 73yrs. Father Family Medical History: Diabetes Mellitus, Hypertension Additional Family Medical History / Comment(s): Heavy smoker, Father in his late 60's or early 70's. Medications and Allergies Home Medications Medication Instructions Recorded Confirmed Type Rivaroxaban [Xarelto] 20 mg PO HS 02/16/15 09/22/20 History Furosemide [Lasix] 40 mg PO BID #0 04/26/18 09/22/20 Rx Potassium Chloride [Klor-Con 20] 20 meq PO BID #0 04/26/18 09/22/20 Rx Pantoprazole [Protonix] 40 mg PO AC-BID tablet. 05/10/18 09/22/20 Rx Aspirin [Adult Low Dose Aspirin EC] 81 mg PO DAILY 09/11/20 09/22/20 History Multivit-Min/Iron/Folic/Lutein 1 tab PO DAILY 09/11/20 09/22/20 History [Centrum Silver Women Tablet] Propranolol HCl [Propranolol HCl 160 mg PO DAILY 09/11/20 09/22/20 History ER] lisinopriL [Zestril] 5 mg PO DAILY 09/11/20 09/22/20 History methIMAzole [Tapazole] 10 mg PO DAILY 09/11/20 09/22/20 History Allergies Allergy/AdvReac Type Severity Reaction Status Date / Time No Known Allergies Allergy Verified 09/22/20 12:01 Physical Exam Vitals: Vital Signs Temp Pulse Pulse Resp BP BP Pulse Ox 09/16/23 08:21 98.5 F 72 16 121/68 98 09/16/23 05:00 72 22 129/57 96 09/16/23 04:00 72 14 132/63 94 L 09/16/23 03:00 71 17 110/67 94 L 09/16/23 02:00 98.8 F 71 23 110/60 100 09/16/23 01:00 73 21 106/58 95 09/16/23 00:00 75 16 123/57 94 L 09/15/23 23:00 76 18 122/59 94 L 09/15/23 22:32 97.8 F 09/15/23 22:00 77 18 122/65 94 L 09/15/23 21:22 79 09/15/23 21:00 80 15 127/65 94 L 09/15/23 20:37 81 16 127/64 94 L 09/15/23 20:21 99.5 F 81 16 127/64 95 Intake and Output 09/15/23 09/16/23 09/16/23 22:59 06:59 14:59 Intake Total 250 Balance 250 Intake: IV 10 Invasive Line 1 10 Oral 240 Other: Voiding Method External Catheter Weight 113.852 kg Results CBC & Chem 7: 09/15/23 21:19 09/15/23 21:19 Labs: Abnormal Lab Results - Last 24 Hours (Table) 09/15/23 09/15/23 09/16/23 Range/Units 21:19 21:19 01:45 WBC 18.8 H (3.8-10.6) k/uL Neutrophils # 16.9 H (1.3-7.7) k/uL Lymphocytes # 0.8 L (1.0-4.8) k/uL BUN 19 H (7-17) mg/dL Glucose 139 H (74-99) mg/dL Urine Appearance Cloudy H (Clear) Urine Protein Trace H (Negative) Ur Leukocyte Esterase Trace H (Negative) Urine WBC 10 H (0-5) /hpf Hyaline Casts 3 H (0-2) /lpf
[2023-09-16] MEDS: PROPRANOLOL LA 80 MG CAP.SA.24H PO SCH (11:59)
[2023-09-16] MEDS: ENOXAPARIN 40 MG/0.4 ML SYRINGE SQ SCH (12:04)
[2023-09-16] MEDS ORDERED: IOPAMIDOL CONTRAST (ORAL USE) VIAL PO PRN (12:05)
[2023-09-16] MEDS: PIPERACILLIN-TAZOBACTAM 3.375 GM in SODIUM CHLORIDE 0.9% 100 ML IVPB STA (13:01)
[2023-09-16 13:08] LABS: ABG Base Excess 2.4 mmol/L; ABG HCO3 26 mmol/L (21-25); ABG Oxygen Saturation 97.7 % (94-97); ABG PCO2 34 mmHg (35-45); ABG PH 7.49 (7.35-7.45); ABG PO2 92 mmHg (83-108); ABG TCO2 27 mmol/L (19-24); Allen Test Performed? Yes
--- NOTE | 2023-09-16 14:52 | CT ---
EXAMINATION TYPE: CT abdomen pelvis w con CT DLP: 2231 mGycm, Automated exposure control for dose reduction was used. DATE OF EXAM: 09/16/2023 2:17 PM COMPARISON: None. CLINICAL INDICATION:Female, 68 years old with history of LLQ tenderness; LLQ tenderness, abdominal pa in TECHNIQUE: Axial CT abdomen pelvis w con;Sagittal and coronal reformats were created on a separate w orkstation. Contrast used:100 mL of Isovue 300 with IV Contrast, (none if empty) Oral contrast used: with Oral Contrast (none if empty) FINDINGS: LOWER CHEST: Heart is mildly enlarged for size. Mitral valve annular calcifications. ABDOMEN LIVER: Peripherally enhancing indeterminate lesion in the left hepatic lobe measuring 23 x 16 mm ther e is also a enhancing lesion in the dome of the left hepatic lobe measuring 11 mm series 201 image 13 . GALLBLADDER AND BILE DUCTS: Unremarkable. PANCREAS: Unremarkable. SPLEEN: Unremarkable. ADRENAL GLANDS: Unremarkable. KIDNEYS AND URETERS: No evidence of hydronephrosis or renal calculus. The ureters are unremarkable. PELVIS BLADDER: Unremarkable REPRODUCTIVE: The uterus is surgically absent. ABDOMEN & PELVIS STOMACH AND BOWEL: No evidence of bowel obstruction. Scattered colonic diverticula. PERITONEUM/RETROPERITONEUM: No evidence of pneumoperitoneum or free fluid. VASCULATURE: No evidence of aortic aneurysm. MUSCULOSKELETAL: No acute osseous abnormalities. Moderate disc degeneration changes are present throu ghout the thoracolumbar spine. LYMPH NODES: No gross evidence for lymphadenopathy. SOFT TISSUE/ABDOMINAL WALL: Unremarkable IMPRESSION: 1. No evidence for acute left lower quadrant process to explain the patient's pain. No obstructive u ropathy or renal calculus. No diverticulitis. 2. Left hepatic lobe 23 x 16 mm lesion favored represent hemangioma. Another lesion in the dome of t he left hepatic lobe also felt to represent flash filling hemangioma.
--- NOTE | 2023-09-16 14:56 | P.CRDCN ---
History of Present Illness Consult date: 09/16/23 Consult reason: chest pain History of present illness: This is Sedrick Garcia NP, I'm dictating on behalf of Dr. Parker's H&P and A&P The patient was interviewed and examined. HPI: Patient is a pleasant 68-year-old female with a past medical history that includes atrial fibrillation, chest pain, heart failure, GI bleeding, hypertension, RA, sleep apnea, and thyroid disorder who presents to the hospital with a constellation of symptoms including weakness, fatigue, shortness of breath, and chest pain. Patient was brought to the hospital secondary to her finding her after returning from being gone for the day unable to get out of bed and not doing very well. An ambulance was called and brought the patient to the hospital. Upon arrival the patient reported substernal chest pain, she had difficulty characterizing it and stated that it was moderate to severe with no worsening or relieving factors. EKG demonstrated normal sinus rhythm with right bundle branch block with no obvious acute ST or T wave changes. Troponins were negative x 2. Cardiology was consulted to evaluate the chest pain. This morning the patient is found lying in the bed and still experiences significant weakness and shortness of breath. She at this time does deny chest pain. ROS: [No fever, chills, or rigors] [no cough, phlegm, or expectoration] [no nausea, vomiting, or diarrhea] [no hematuria, dysuria] [no musculoskelatal complaints] [no strokes or seizures] [no skin lesions] EXAMINATION: GENERAL: Well-appearing, well-nourished and in no acute distress. NECK: Supple without JVD or thyromegaly. LUNGS: Breath sounds clear to auscultation bilaterally. Respiration equal and unlabored. No wheezes, rales or rhonchi. HEART: Regular rate and rhythm without murmurs, rubs or gallops. S1 and S2 heard. EXTREMITIES: Normal range of motion, no edema. No clubbing or cyanosis. Peripheral pulses intact and strong. REVIEW OF LABS, ECG & MEDICAL DATA: LABS: White count 18.8, hemoglobin 12.8, platelets 204, sodium 138, potassium 4.6, BUN 19, creatinine 0.77, calcium 9, magnesium 1.9, troponin x 3 less than 0.012, BNP 686 EKG: Normal sinus rhythm IMAGING: CT of the brain without contrast dated 09/15/2023 shows no acute intracranial process. Chest x-ray dated 09/15/2023 shows cardiomegaly and mild pulmonary vascular congestion, correlate with BNP for congestive heart failure. VITALS: Temp 98.5, pulse 72, respirations 16, blood pressure 121/68, O2 saturation 98% on room air IMPRESSION: 1. Chest pain, likely noncardiac in origin 2. Weakness, significantly elevated white blood cell count at 18 3. Hypertension 4. History of heart failure PLAN: Continue home cardiac medications. Chest pain is noncardiac in origin as evidenced by EKG and troponins not correlating for acute VT. No further recommendations from a cardiology standpoint. Thank you for the consult and allowing us to participate in the care of this patient. Past Medical History Past Medical History: Atrial Fibrillation, Chest Pain / Angina, Heart Failure, GI Bleed, Hypertension, Rheumatoid Arthritis (RA), Sleep Apnea/CPAP/BIPAP, Thyroid Disorder Additional Past Medical History / Comment(s): History of atrial fibrillation post-ablation and cardioversions, recent hospitalization for GI bleeds related to a antral ulcer, anemia secondary to GI bleed, vertigo, not currently using CPAP History of Any Multi-Drug Resistant Organisms: MRSA Date of last positivie culture/infection: 06/23/05 MDRO Source:: lt arm Past Surgical History: Appendectomy, Cardiac Valve Replacement, Sec tion, Heart Catheterization, Hysterectomy, Joint Replacement, Orthopedic Surgery, Tubal Ligation Additional Past Surgical History / Comment(s): 7 KNEE SURGERIES= 0NE LEFT KNEE ARTHROSCOPY, and 5 RT KNEE ARTHROSCOPIES THEN TOTAL RT KNEE DONE & THEN TOTAL REVISION TO RT KNEE , PLACIDO. ACHILLES TENDON SURGERY- HAS SCREWS IN PLACIDO. HEELS, EYE SURGERY A CHILD(STRABISMUS), DENTAL IMPLANT BOTTOM LT., COLONOSCOPY, right shoulder sx x2 05/23/18 left thorancentesis Past Anesthesia/Blood Transfusion Reactions: Previous Problems w/ Anesthesia, Family History of Problems w/ Anesthesia, Postoperative Nausea & Vomiting (PONV) Additional Past Anesthesia/Blood Transfusion Reaction / Comment(s): PT & HER MOTHER HAVE HX PONV Past Psychological History: No Psychological Hx Reported Smoking Status: Never smoker Past Alcohol Use History: Rare Past Drug Use History: None Reported - Past Family History Mother Family Medical History: Congestive Heart Failure (CHF), Diabetes Mellitus Additional Family Medical History / Comment(s): History of spinal stenosis, heavy smoker and IDDM. Mother at age 73yrs. Father Family Medical History: Diabetes Mellitus, Hypertension Additional Family Medical History / Comment(s): Heavy smoker, Father in his late 60's or early 70's. Medications and Allergies Home Medications Medication Instructions Recorded Confirmed Type Rivaroxaban [Xarelto] 20 mg PO HS 02/16/15 09/22/20 History Furosemide [Lasix] 40 mg PO BID #0 04/26/18 09/22/20 Rx Potassium Chloride [Klor-Con 20] 20 meq PO BID #0 04/26/18 09/22/20 Rx Pantoprazole [Protonix] 40 mg PO AC-BID tablet. 05/10/18 09/22/20 Rx Aspirin [Adult Low Dose Aspirin EC] 81 mg PO DAILY 09/11/20 09/22/20 History Multivit-Min/Iron/Folic/Lutein 1 tab PO DAILY 09/11/20 09/22/20 History [Centrum Silver Women Tablet] Propranolol HCl [Propranolol HCl 160 mg PO DAILY 09/11/20 09/22/20 History ER] lisinopriL [Zestril] 5 mg PO DAILY 09/11/20 09/22/20 History methIMAzole [Tapazole] 10 mg PO DAILY 09/11/20 09/22/20 History Allergies Allergy/AdvReac Type Severity Reaction Status Date / Time No Known Allergies Allergy Verified 09/22/20 12:01 Physical Exam Vitals: Vital Signs Temp Pulse Pulse Resp BP BP Pulse Ox 09/16/23 14:18 66 16 128/62 95 09/16/23 12:04 98.1 F 68 20 122/58 100 09/16/23 08:21 98.5 F 72 16 121/68 98 09/16/23 05:00 72 22 129/57 96 09/16/23 04:00 72 14 132/63 94 L 09/16/23 03:00 71 17 110/67 94 L 09/16/23 02:00 98.8 F 71 23 110/60 100 09/16/23 01:00 73 21 106/58 95 09/16/23 00:00 75 16 123/57 94 L 09/15/23 23:00 76 18 122/59 94 L 09/15/23 22:32 97.8 F 09/15/23 22:00 77 18 122/65 94 L 09/15/23 21:22 79 09/15/23 21:00 80 15 127/65 94 L 09/15/23 20:37 81 16 127/64 94 L 09/15/23 20:21 99.5 F 81 16 127/64 95 Intake and Output 09/15/23 09/16/23 09/16/23 22:59 06:59 14:59 Intake Total 250 Output Total 400 Balance -150 Intake: IV 10 Invasive Line 1 10 Oral 240 Output: Urine 400 Other: Voiding Method External Catheter Weight 113.852 kg 113.852 kg Results 09/15/23 21:19 09/15/23 21:19 Cardiac Enzymes 09/15/23 09/15/23 09/16/23 Range/Units 21:19 21:19 00:35 AST 25 (14-36) U/L Troponin I <0.012 <0.012 (0.000-0.034) ng/mL 09/16/23 Range/Units 04:59 AST (14-36) U/L Troponin I <0.012 (0.000-0.034) ng/mL Coagulation 09/15/23 Range/Units 21:19 PT 10.9 (10.0-12.5) sec APTT 24.6 (22.0-30.0) sec CBC 09/15/23 Range/Units 21:19 WBC 18.8 H (3.8-10.6) k/uL RBC 4.24 (3.80-5.40) m/uL Hgb 12.8 (11.4-16.0) gm/dL Hct 37.5 (34.0-46.0) % Plt Count 204 (150-450) k/uL Comprehensive Metabolic Panel 09/15/23 Range/Units 21:19 Sodium 138 (137-145) mmol/L Potassium 4.6 (3.5-5.1) mmol/L Chloride 105 (98-107) mmol/L Carbon Dioxide 22 (22-30) mmol/L BUN 19 H (7-17) mg/dL Creatinine 0.77 (0.52-1.04) mg/dL Glucose 139 H (74-99) mg/dL Calcium 9.0 (8.4-10.2) mg/dL AST 25 (14-36) U/L ALT 24 (4-34) U/L Alkaline Phosphatase 96 (38-126) U/L Total Protein 7.6 (6.3-8.2) g/dL Albumin 4.3 (3.5-5.0) g/dL Current Medications Generic Name Dose Route Start Last Admin Trade Name Freq PRN Reason Stop Dose Admin Acetaminophen 325 mg 09/16/23 08:36 Acetaminophen Tab 325 Mg Tab PO Q6HR PRN Fever and/ or Pain Aspirin 81 mg 09/16/23 09:00 09/16/23 08:37 Aspirin 81 Mg PO 81 mg DAILY [facility] Administration Iopamidol 30 ml 09/16/23 12:05 Iopamidol Contrast (Oral Use) Vial PO 09/17/23 12:[address] Scan Metoprolol Tartrate 25 mg 09/16/23 21:00 Metoprolol Tartrate 25 Mg Tab PO BID [facility] Nitroglycerin 0.4 mg 09/16/23 00:10 Nitroglycerin Sl Tabs 0.4 Mg Tab SUBLINGUAL Q5M PRN Chest Pain Pantoprazole Sodium 40 mg 09/16/23 07:30 09/16/23 08:38 Pantoprazole 40 Mg Tablet PO 40 mg AC-BID [facility]CA Administration Potassium Chloride 20 meq 09/16/23 09:00 09/16/23 08:38 Potassium Chloride Er 20 Meq Tab.Er PO 20 meq BID [facility] Administration Rivaroxaban 20 mg 09/16/23 21:00 Rivaroxaban 20 Mg Tab PO HS [facility] Protocol Sodium Chloride 10 ml 09/16/23 09:00 09/16/23 08:38 Sodium Chloride 0.9% Flush 10 Ml Syringe IV 10 ml BID [facility]CA Administration Intake and Output 09/15/23 09/16/23 09/16/23 22:59 06:59 14:59 Intake Total 250 Output Total 400 Balance -150 Intake: IV 10 Invasive Line 1 10 Oral 240 Output: Urine 400 Other: Voiding Method External Catheter Weight 113.852 kg 113.852 kg Patient Weight 09/17/23 06:59 Weight 113.852 kg 09/15/23 21:19 09/15/23 21:19
[2023-09-16] MEDS: ACETAMINOPHEN TAB 325 MG TAB PO PRN (15:59)
[2023-09-16 16:37] LABS: ALT 28 U/L (4-34); AST 30 U/L (14-36); African American GFR (CKD) 53 (>60 ml/min/1.73 sqM); Albumin 3.8 g/dL (3.5-5.0); Alkaline Phosphatase 96 U/L (38-126); Anion Gap 6 mmol/L; Blood Urea Nitrogen 39 mg/dL (7-17); Calcium 9.4 mg/dL (8.4-10.2); Carbon Dioxide 25 mmol/L (22-30); Chloride 109 mmol/L (98-107); Glucose 191 mg/dL (74-99); Non-African American GFR(CKD) 46 (>60 ml/min/1.73 sqM); Potassium 4.6 mmol/L (3.5-5.1); Sodium 140 mmol/L (137-145); Total Bilirubin 0.5 mg/dL (0.2-1.3); Total Protein 6.9 g/dL (6.3-8.2)
[2023-09-16] MEDS: RIVAROXABAN 20 MG TAB PO SCH (20:00)
[2023-09-16] MEDS: METOPROLOL TARTRATE 25 MG TAB PO SCH (20:00)
--- NOTE | 2023-09-16 21:39 | P.CONS ---
History of Present Illness - Reason for Consult Consult date: 09/16/23 - History of Present Illness Patient is a 68-year-old female with a past medical history significant for hypertension atrial fibrillation heart failure rheumatoid arthritis hypothyroidism patient was brought into the hospital for evaluation of generalized weakness fatigue chest pain some shortness of breath and not feeling well patient was weak unable to get up patient has been complaining of some chills he denies high-grade fever did have some headache but no photophobia an episode of nausea and vomiting, patient however denies having any abdominal pain she was also complaining of some chest pain and presented to the hospital not any further she is breathing comfortably on room air denies significant cough or sputum production no diarrhea further did have hard bowel movement yesterday denies any blood or mucus in the stool with the symptoms the patient was evaluated on presentation to the hospital patient did have low-grade fever of 99.5 F patient was not tachycardic hypotensive or hypoxic and no need for supplemental oxygen patient did have white count of 18.8 with a left shift BUN/creatinine mildly elevated electrolytes are normal liver isms are normal urine was cloudy trace leukocyte Estrace 10 WBC influenza RSV COVID testing was negative patient did have a chest x-ray cardiomegaly and mild pulmonary vascular congestion patient received a dose of Rocephin and admitted to the hospital i nfectious disease was consulted for further management of antibiotic therapy Past Medical History Past Medical History: Atrial Fibrillation, Chest Pain / Angina, Heart Failure, GI Bleed, Hypertension, Rheumatoid Arthritis (RA), Sleep Apnea/CPAP/BIPAP, Thyroid Disorder Additional Past Medical History / Comment(s): History of atrial fibrillation post-ablation and cardioversions, recent hospitalization for GI bleeds related to a antral ulcer, anemia secondary to GI bleed, vertigo, liver lesion probably a meningioma and the patient will be having an outpatient MRI at a later stage, not currently using CPAP History of Any Multi-Drug Resistant Organisms: MRSA Year Discovered:: 06/23/05 MDRO Source:: lt arm Past Surgical History: Appendectomy, Section, Coronary Bypass/CABG, Heart Catheterization, Hysterectomy, Joint Replacement, Orthopedic Surgery, Tubal Ligation Additional Past Surgical History / Comment(s): 7 KNEE SURGERIES= 0NE LEFT KNEE ARTHROSCOPY, and 5 RT KNEE ARTHROSCOPIES THEN TOTAL RT KNEE DONE & THEN TOTAL REVISION TO RT KNEE , PLACIDO. ACHILLES TENDON SURGERY- HAS SCREWS IN PLACIDO. HEELS, EYE SURGERY A CHILD(STRABISMUS), DENTAL IMPLANT BOTTOM LT., COLONOSCOPY, right shoulder sx x2 05/23/18 left thorancentesis Past Anesthesia/Blood Transfusion Reactions: Previous Problems w/ Anesthesia, Family History of Problems w/ Anesthesia, Postoperative Nausea & Vomiting (PONV) Additional Past Anesthesia/Blood Transfusion Reaction / Comm: PT & HER MOTHER HAVE HX PONV Past Psychological History: No Psychological Hx Reported Smoking Status: Never smoker Past Alcohol Use History: Rare Past Drug Use History: None Reported - Past Family History Mother Family Medical History: Congestive Heart Failure (CHF), Diabetes Mellitus Additional Family Medical History / Comment(s): History of spinal stenosis, heavy smoker and IDDM. Mother at age 73yrs. Father Family Medical History: Diabetes Mellitus, Hypertension Additional Family Medical History / Comment(s): Heavy smoker, Father in his late 60's or early 70's. Medications and Allergies Home Medications Medication Instructions Recorded Confirmed Type Rivaroxaban [Xarelto] 20 mg PO DAILY@1600 02/16/15 09/16/23 History Furosemide [Lasix] 40 mg PO BID #0 04/26/18 09/16/23 Rx Potassium Chloride [Klor-Con 20] 20 meq PO BID #0 04/26/18 09/16/23 Rx Aspirin [Adult Low Dose Aspirin EC] 81 mg PO DAILY 09/11/20 09/16/23 History Multivit-Min/Iron/Folic/Lutein 1 tab PO DAILY 09/11/20 09/16/23 History [Centrum Silver Women Tablet] lisinopriL [Zestril] 5 mg PO DAILY 09/11/20 09/16/23 History Ag1 1 dose PO DAILY 09/16/23 09/16/23 History Collagen(Unknown) 1 cap PO DAILY 09/16/23 09/16/23 History Flecainide Acetate [Tambocor] 50 mg PO HS 09/16/23 09/16/23 History Flecainide Acetate [Tambocor] 100 mg PO DAILY 09/16/23 09/16/23 History Letrozole [Femara] 2.5 mg PO DAILY 09/16/23 09/16/23 History Levothyroxine Sodium [Synthroid] 25 mcg PO MOTUWE 09/16/23 09/16/23 History Levothyroxine Sodium [Synthroid] 50 mcg PO SUTUTHFRSA 09/16/23 09/16/23 History Metoprolol Succinate (ER) [Toprol 50 mg PO BID 09/16/23 09/16/23 History Xl] Pantoprazole [Protonix] 40 mg PO DAILY 09/16/23 09/16/23 History Rosuvastatin [Crestor] 10 mg PO DAILY 09/16/23 09/16/23 History Vitamin E (Dl,Tocopheryl Acet) 400 unit PO DAILY 09/16/23 09/16/23 History [Vitamin E (400 Iu = 180 mg)] Allergies Allergy/AdvReac Type Severity Reaction Status Date / Time No Known Allergies Allergy Verified 09/16/23 17:00 Physical Exam Vitals: Vital Signs Temp Pulse Pulse Resp BP BP Pulse Ox 09/16/23 08:21 98.5 F 72 16 121/68 98 09/16/23 05:00 72 22 129/57 96 09/16/23 04:00 72 14 132/63 94 L 09/16/23 03:00 71 17 110/67 94 L 09/16/23 02:00 98.8 F 71 23 110/60 100 09/16/23 01:00 73 21 106/58 95 09/16/23 00:00 75 16 123/57 94 L 09/15/23 23:00 76 18 122/59 94 L 09/15/23 22:32 97.8 F 09/15/23 22:00 77 18 122/65 94 L 09/15/23 21:22 79 09/15/23 21:00 80 15 127/65 94 L 09/15/23 20:37 81 16 127/64 94 L 09/15/23 20:21 99.5 F 81 16 127/64 95 Intake and Output 09/15/23 09/16/23 09/16/23 22:59 06:59 14:59 Intake Total 250 Balance 250 Intake: IV 10 Invasive Line 1 10 Oral 240 Other: Voiding Method External Catheter Weight 113.852 kg Results CBC & Chem 7: 09/15/23 21:19 09/16/23 15:59 Labs: Abnormal Lab Results - Last 24 Hours (Table) 09/15/23 09/15/23 09/16/23 Range/Units 21:19 21:19 01:45 WBC 18.8 H (3.8-10.6) k/uL Neutrophils # 16.9 H (1.3-7.7) k/uL Lymphocytes # 0.8 L (1.0-4.8) k/uL BUN 19 H (7-17) mg/dL Glucose 139 H (74-99) mg/dL Urine Appearance Cloudy H (Clear) Urine Protein Trace H (Negative) Ur Leukocyte Esterase Trace H (Negative) Urine WBC 10 H (0-5) /hpf Hyaline Casts 3 H (0-2) /lpf Assessment and Plan Plan: 1patient present hospitalized weakness not feeling well patient did have an episode of vomiting and the patient noticed to be tender in the left lower quadrant area concerning for possible diverticulitis patient chest is clear to auscultation, no evidence of any cellulitis and urine is not significantly positive. Patient has been complaining of some headache but no evidence of any neck rigidity or photophobia 2we will obtain a CT of abdominal pelvis with contrast to better define intra- abdominal pathology 3will empirically start the patient on Zosyn 3.375 g every 8 hours We will follow on clinical condition and cultures to further adjust medication if needed Thank you for this consultation we will follow the patient along with you Dictation was produced using [employer] dictation software. please excuse any grammatical, word or spelling errors. Time with Patient: Greater than 30
[2023-09-16 22:23] LABS: Chol/HDL Ratio 1.72 Ratio; LDL Cholesterol,Calculated 34.8 mg/dL (0.0-131.0)
[2023-09-17] MEDS ORDERED: PIPERACILLIN-TAZOBACTAM 3.375 GM in SODIUM CHLORIDE 0.9% 100 ML IVPB SCH
[2023-09-17] MEDS: AMPICILLIN-SULBACTAM 3 GM in SODIUM CHLORIDE 0.9% 100 ML IVPB SCH (00:10)
[2023-09-17] MEDS: POTASSIUM CHLORIDE ER 20 MEQ TAB.ER PO SCH (08:32)
[2023-09-17 08:44] LABS: HCT 35.7 % (34.0-46.0); HGB 12.3 gm/dL (11.4-16.0); MCH 30.7 pg (25.0-35.0); MCHC 34.4 g/dL (31.0-37.0); MCV 89.2 fL (80.0-100.0); Mean Platelet Volume 8.6; Platelet Count 196 k/uL (150-450); RDW 13.2 % (11.5-15.5); WBC 9.7 k/uL (3.8-10.6)
[2023-09-17] MEDS ORDERED: ASPIRIN 325 MG TAB PO SCH (09:00)
[2023-09-17 09:12] LABS: ALT 19 U/L (4-34); AST 21 U/L (14-36); African American GFR (CKD) >90 (>60 ml/min/1.73 sqM); Albumin 3.8 g/dL (3.5-5.0); Alkaline Phosphatase 89 U/L (38-126); Anion Gap 8 mmol/L; Blood Urea Nitrogen 11 mg/dL (7-17); Calcium 8.3 mg/dL (8.4-10.2); Carbon Dioxide 25 mmol/L (22-30); Chloride 106 mmol/L (98-107); Glucose 118 mg/dL (74-99); Non-African American GFR(CKD) >90 (>60 ml/min/1.73 sqM); Potassium 4.2 mmol/L (3.5-5.1); Sodium 139 mmol/L (137-145); Total Bilirubin 0.6 mg/dL (0.2-1.3)
--- NOTE | 2023-09-17 12:07 | P.PN ---
Subjective Progress Note Date: 09/17/23 68-year-old female came in with complaints of extreme fatigue and malaise without any fevers which started all of a sudden yesterday evening. Patient was also complaining of chest pain which appeared to be noncardiac now complaining of headache severe 6/10 in the frontal area denies any blurry vision. Troponins were negative EKG did not show any acute ST-T wave changes but consistent with ventricular conduction delay with J-point elevation and Buice biphasic QRS complexes. Patient does have leukocytosis denies any symptoms of UTI or cough chest x-ray did not show any pneumonia patient denies any abdominal pain. Blood cultures were ordered results are pending patient was given a dose of Rocephin although urine is not that impressive for urinary tract infection, only showed trace leukocyte esterase but does have hyaline casts. TSH was ordered and D- dimer was ordered. 09/17/2023 Patient is evaluated today sitting up in the chair she continues to report extreme fatigue and malaise remains afebrile. Abdominal pelvis CT is showing no intra-abdominal process to account for infection. Her noted that her left breast is significantly cellulitic around the nipple area was outlined and discu ssed with infectious disease antibiotics been changed to IV Unasyn. She reports having a lumpectomy done at [facility] by Dr. Herr in the last year to the left breast. She completed radiation therapy also. Cardiology has signed off. Her CBC today is unremarkable her white count remains normal at 9.7, renal function has completely normalized with a BUN of 11 and a creatinine of 0.64. Her TSH is normal. Procalcitonin is mildly elevated at 0.56. Hemodynamically she is stable. Review of Systems Constitutional: Reports fatigue denied any fever. Cardio vascular: denied any chest pain, palpitations Gastrointestinal: denied any nausea, vomiting, diarrhea Pulmonary: Denied any shortness of breath cough Neurologic denied any new focal deficits All inpatient medications were reviewed and appropriate changes in these medications as dictated in the interval history and assessment and plan. PHYSICAL EXAMINATION: GENERAL: The patient is alert and oriented x3, appears to be extremely lethargic HEENT: Pupils are round and equally reacting to light. EOMI. No scleral icterus. No conjunctival pallor. Normocephalic, atraumatic. No pharyngeal erythema. No thyromegaly. CARDIOVASCULAR: S1 and S2 present. No murmurs, rubs, or gallops. Patient's left breast is cellulitic around the nipple warm and tender to touch. Patient denies any drainage from the nipple, no open lesions. PULMONARY: Chest is clear to auscultation, no wheezing or crackles. ABDOMEN: Soft, nontender, nondistended, normoactive bowel sounds. No palpable organomegaly. MUSCULOSKELETAL: No joint swelling or deformity. EXTREMITIES: No cyanosis, clubbing, or pedal edema. NEUROLOGICAL: Gross neurological examination did not reveal any focal deficits. SKIN: No rashes. Assessment and plan -Severe lethargy likely due to cellulitis of the left breast and sepsis ID is following and patient has been started on IV unasyn. Blood culture currently pending. -Acute renal injury, prerenal due to dehydration and poor oral intake patient is being hydrated. -Chest pain appears to be noncardiac cardiology was consulted and have signed off. -Atrial fibrillation presently sinus rhythm rate controlled on anticoagulation with Xarelto -Hypertension -Sleep apnea -Hypothyroidism: TSH within normal limits, DVT prophylaxis: On xarelto Patient will be evaluated by physical therapy continue with IV fluids and IV antibiotics. The cellulitic area on the left breast has been outlined. The impression and plan of care has been dictated by Dulce Vera, Nurse Practitioner as directed. Dr. Scotty MD I have performed a history and physical examination and medical decision making of this patient, discussed the same with the dictator, and agree with the dictators assessment and plan as written, documented as a scribe. Based on total visit time, I have performed more than 50% of this visit. Objective - Vital Signs Vital signs: Vital Signs Temp 98.0 F 09/17/23 08:00 Pulse 69 09/17/23 08:00 Resp 14 09/17/23 08:00 BP 135/66 09/17/23 08:00 Pulse Ox 96 09/17/23 08:00 FiO2 Intake & Output 09/16/23 09/17/23 09/17/23 18:59 06:59 18:59 Intake Total 250 240 Output Total 400 Balance -150 240 Weight 113.852 kg Intake: IV 10 Invasive Line 1 10 Oral 240 240 Output: Urine 400 Other: Voiding Method External Catheter Bedpan Bedpan # Voids 1 1 1 # Bowel Movements 1 1 - Labs CBC & Chem 7: 09/17/23 07:28 09/17/23 07:28 Labs: Abnormal Lab Results - Last 24 Hours (Table) 09/16/23 09/16/23 09/16/23 Range/Units 12:54 15:45 15:45 ESR (0-30) mm/Hr ABG pH 7.49 H (7.35-7.45) ABG pCO2 34 L (35-45) mmHg ABG HCO3 26 H (21-25) mmol/L ABG Total CO2 27 H (19-24) mmol/L ABG O2 Saturation 97.7 H (94-97) % Chloride (98-107) mmol/L BUN (7-17) mg/dL Creatinine (0.52-1.04) mg/dL Glucose (74-99) mg/dL Hemoglobin A1c (<=6.0) % Calcium (8.4-10.2) mg/dL C-Reactive Protein 15.9 H (<1.0) mg/dL HDL Cholesterol (40.00-60.00) mg/dL Procalcitonin 0.56 H (0.02-0.09) ng/mL Ur Random Microalbumin (0.0-1.9) mg/dL Microalb/Creat Ratio (0-30) mg/g Cr 09/16/23 09/16/23 09/16/23 Range/Units 15:45 15:59 15:59 ESR 37 H (0-30) mm/Hr ABG pH (7.35-7.45) ABG pCO2 (35-45) mmHg ABG HCO3 (21-25) mmol/L ABG Total CO2 (19-24) mmol/L ABG O2 Saturation (94-97) % Chloride 109 H (98-107) mmol/L BUN 39 H (7-17) mg/dL Creatinine 1.20 H (0.52-1.04) mg/dL Glucose 191 H (74-99) mg/dL Hemoglobin A1c 8.0 H (<=6.0) % Calcium (8.4-10.2) mg/dL C-Reactive Protein (<1.0) mg/dL HDL Cholesterol 61.60 H (40.00-60.00) mg/dL Procalcitonin (0.02-0.09) ng/mL Ur Random Microalbumin (0.0-1.9) mg/dL Microalb/Creat Ratio (0-30) mg/g Cr 09/16/23 09/17/23 Range/Units 15:59 07:28 ESR (0-30) mm/Hr ABG pH (7.35-7.45) ABG pCO2 (35-45) mmHg ABG HCO3 (21-25) mmol/L ABG Total CO2 (19-24) mmol/L ABG O2 Saturation (94-97) % Chloride (98-107) mmol/L BUN (7-17) mg/dL Creatinine (0.52-1.04) mg/dL Glucose 118 H (74-99) mg/dL Hemoglobin A1c (<=6.0) % Calcium 8.3 L (8.4-10.2) mg/dL C-Reactive Protein (<1.0) mg/dL HDL Cholesterol (40.00-60.00) mg/dL Procalcitonin (0.02-0.09) ng/mL Ur Random Microalbumin 74.2 H (0.0-1.9) mg/dL Microalb/Creat Ratio 681 H (0-30) mg/g Cr Assessment and Plan Time with Patient: Less than 30
[2023-09-17 12:43] LABS: Chol/HDL Ratio 2.91 Ratio
[2023-09-17 12:51] LABS: LDL Cholesterol,Calculated 56.2 mg/dL (0.0-131.0)
--- NOTE | 2023-09-17 13:40 | P.GSCN ---
History of Present Illness Consult date: 09/17/23 History of present illness: Patient reports pre-existing history of breast cancer treated with radiation last year at [facility]. Last mammogram was within the last 1 to 2 years. She reports 2 to 3-day history of pain and discomfort along the left breast. Symptoms became acute. She reports worsening pain today. Recommend ultrasound of the left breast. Continue antibiotics in the interim. Past Medical History Past Medical History: Atrial Fibrillation, Chest Pain / Angina, Heart Failure, GI Bleed, Hypertension, Rheumatoid Arthritis (RA), Sleep Apnea/CPAP/BIPAP, Thyroid Disorder Additional Past Medical History / Comment(s): History of atrial fibrillation post-ablation and cardioversions, recent hospitalization for GI bleeds related to a antral ulcer, anemia secondary to GI bleed, vertigo, liver lesion probably a meningioma and the patient will be having an outpatient MRI at a later stage, not currently using CPAP History of Any Multi-Drug Resistant Organisms: MRSA Year Discovered:: 06/23/05 MDRO Source:: lt arm Past Surgical History: Appendectomy, Section, Coronary Bypass/CABG, Heart Catheterization, Hysterectomy, Joint Replacement, Orthopedic Surgery, Tubal Ligation Additional Past Surgical History / Comment(s): 7 KNEE SURGERIES= 0NE LEFT KNEE ARTHROSCOPY, and 5 RT KNEE ARTHROSCOPIES THEN TOTAL RT KNEE DONE & THEN TOTAL REVISION TO RT KNEE , PLACIDO. ACHILLES TENDON SURGERY- HAS SCREWS IN PLACIDO. HEELS, EYE SURGERY A CHILD(STRABISMUS), DENTAL IMPLANT BOTTOM LT., COLONOSCOPY, right shoulder sx x2 05/23/18 left thorancentesis Past Anesthesia/Blood Transfusion Reactions: Previous Problems w/ Anesthesia, Family History of Problems w/ Anesthesia, Postoperative Nausea & Vomiting (PONV) Additional Past Anesthesia/Blood Transfusion Reaction / Comm: PT & HER MOTHER HAVE HX PONV Past Psychological History: No Psychological Hx Reported Smoking Status: Never smoker Past Alcohol Use History: Rare Past Drug Use History: None Reported - Past Family History Mother Family Medical History: Congestive Heart Failure (CHF), Diabetes Mellitus Additional Family Medical History / Comment(s): History of spinal stenosis, heavy smoker and IDDM. Mother at age 73yrs. Father Family Medical History: Diabetes Mellitus, Hypertension Additional Family Medical History / Comment(s): Heavy smoker, Father in his late 60's or early 70's. Medications and Allergies Home Medications Medication Instructions Recorded Confirmed Type Rivaroxaban [Xarelto] 20 mg PO DAILY@1600 02/16/15 09/16/23 History Furosemide [Lasix] 40 mg PO BID #0 04/26/18 09/16/23 Rx Potassium Chloride [Klor-Con 20] 20 meq PO BID #0 04/26/18 09/16/23 Rx Aspirin [Adult Low Dose Aspirin EC] 81 mg PO DAILY 09/11/20 09/16/23 History Multivit-Min/Iron/Folic/Lutein 1 tab PO DAILY 09/11/20 09/16/23 History [Centrum Silver Women Tablet] lisinopriL [Zestril] 5 mg PO DAILY 09/11/20 09/16/23 History Ag1 1 dose PO DAILY 09/16/23 09/16/23 History Collagen(Unknown) 1 cap PO DAILY 09/16/23 09/16/23 History Flecainide Acetate [Tambocor] 50 mg PO HS 09/16/23 09/16/23 History Flecainide Acetate [Tambocor] 100 mg PO DAILY 09/16/23 09/16/23 History Letrozole [Femara] 2.5 mg PO DAILY 09/16/23 09/16/23 History Levothyroxine Sodium [Synthroid] 25 mcg PO MOTUWE 09/16/23 09/16/23 History Levothyroxine Sodium [Synthroid] 50 mcg PO SUTUTHFRSA 09/16/23 09/16/23 History Metoprolol Succinate (ER) [Toprol 50 mg PO BID 09/16/23 09/16/23 History Xl] Pantoprazole [Protonix] 40 mg PO DAILY 09/16/23 09/16/23 History Rosuvastatin [Crestor] 10 mg PO DAILY 09/16/23 09/16/23 History Vitamin E (Dl,Tocopheryl Acet) 400 unit PO DAILY 09/16/23 09/16/23 History [Vitamin E (400 Iu = 180 mg)] Allergies Allergy/AdvReac Type Severity Reaction Status Date / Time No Known Allergies Allergy Verified 09/16/23 17:00 Surgical - Exam Vital Signs Temp Pulse Resp BP Pulse Ox 99.5 F 81 16 127/64 95 09/15/23 20:21 09/15/23 20:21 09/15/23 20:21 09/15/23 20:21 09/15/23 20:21 Results - Labs 09/17/23 07:28 09/17/23 07:28 Abnormal Lab Results - Last 24 Hours (Table) 09/16/23 09/16/23 09/16/23 Range/Units 15:45 15:45 15:45 ESR 37 H (0-30) mm/Hr Chloride (98-107) mmol/L BUN (7-17) mg/dL Creatinine (0.52-1.04) mg/dL Glucose (74-99) mg/dL Hemoglobin A1c (<=6.0) % Calcium (8.4-10.2) mg/dL C-Reactive Protein 15.9 H (<1.0) mg/dL HDL Cholesterol (40.00-60.00) mg/dL Procalcitonin 0.56 H (0.02-0.09) ng/mL Ur Random Microalbumin (0.0-1.9) mg/dL Microalb/Creat Ratio (0-30) mg/g Cr 09/16/23 09/16/23 09/16/23 Range/Units 15:59 15:59 15:59 ESR (0-30) mm/Hr Chloride 109 H (98-107) mmol/L BUN 39 H (7-17) mg/dL Creatinine 1.20 H (0.52-1.04) mg/dL Glucose 191 H (74-99) mg/dL Hemoglobin A1c 8.0 H (<=6.0) % Calcium (8.4-10.2) mg/dL C-Reactive Protein (<1.0) mg/dL HDL Cholesterol 61.60 H (40.00-60.00) mg/dL Procalcitonin (0.02-0.09) ng/mL Ur Random Microalbumin 74.2 H (0.0-1.9) mg/dL Microalb/Creat Ratio 681 H (0-30) mg/g Cr 09/17/23 Range/Units 07:28 ESR (0-30) mm/Hr Chloride (98-107) mmol/L BUN (7-17) mg/dL Creatinine (0.52-1.04) mg/dL Glucose 118 H (74-99) mg/dL Hemoglobin A1c (<=6.0) % Calcium 8.3 L (8.4-10.2) mg/dL C-Reactive Protein (<1.0) mg/dL HDL Cholesterol (40.00-60.00) mg/dL Procalcitonin (0.02-0.09) ng/mL Ur Random Microalbumin (0.0-1.9) mg/dL Microalb/Creat Ratio (0-30) mg/g Cr Microbiology - Last 24 Hours (Table) 09/16/23 00:35 Blood Culture - Preliminary Blood Diabetes panel 09/16/23 09/16/23 09/17/23 Range/Units 15:59 15:59 07:28 Sodium 140 139 (137-145) mmol/L Potassium 4.6 4.2 (3.5-5.1) mmol/L Chloride 109 H 106 (98-107) mmol/L Carbon Dioxide 25 25 (22-30) mmol/L BUN 39 H 11 (7-17) mg/dL Creatinine 1.20 H 0.64 (0.52-1.04) mg/dL Glucose 191 H 118 H (74-99) mg/dL Hemoglobin A1c 8.0 H (<=6.0) % Calcium 9.4 8.3 L (8.4-10.2) mg/dL AST 30 21 (14-36) U/L ALT 28 19 (4-34) U/L Alkaline Phosphatase 96 89 (38-126) U/L Total Protein 6.9 7.0 (6.3-8.2) g/dL Albumin 3.8 3.8 (3.5-5.0) g/dL Triglycerides 48.00 126.00 (0.00-149.00) mg/dL HDL Cholesterol 61.60 H 42.60 (40.00-60.00) mg/dL Thyroid panel 09/16/23 09/17/23 Range/Units 15:59 07:28 TSH 1.110 4.470 (0.465-4.680) mIU/L Calcium panel 09/16/23 09/17/23 Range/Units 15:59 07:28 Calcium 9.4 8.3 L (8.4-10.2) mg/dL Albumin 3.8 3.8 (3.5-5.0) g/dL Pituitary panel 09/16/23 09/17/23 Range/Units 15:59 07:28 Sodium 140 139 (137-145) mmol/L Potassium 4.6 4.2 (3.5-5.1) mmol/L Chloride 109 H 106 (98-107) mmol/L Carbon Dioxide 25 25 (22-30) mmol/L BUN 39 H 11 (7-17) mg/dL Creatinine 1.20 H 0.64 (0.52-1.04) mg/dL Glucose 191 H 118 H (74-99) mg/dL Calcium 9.4 8.3 L (8.4-10.2) mg/dL TSH 1.110 4.470 (0.465-4.680) mIU/L Adrenal panel 09/16/23 09/17/23 Range/Units 15:59 07:28 Sodium 140 139 (137-145) mmol/L Potassium 4.6 4.2 (3.5-5.1) mmol/L Chloride 109 H 106 (98-107) mmol/L Carbon Dioxide 25 25 (22-30) mmol/L BUN 39 H 11 (7-17) mg/dL Creatinine 1.20 H 0.64 (0.52-1.04) mg/dL Glucose 191 H 118 H (74-99) mg/dL Calcium 9.4 8.3 L (8.4-10.2) mg/dL Total Bilirubin 0.5 0.6 (0.2-1.3) mg/dL AST 30 21 (14-36) U/L ALT 28 19 (4-34) U/L Alkaline Phosphatase 96 89 (38-126) U/L Total Protein 6.9 7.0 (6.3-8.2) g/dL Albumin 3.8 3.8 (3.5-5.0) g/dL
--- NOTE | 2023-09-17 14:18 | P.PN ---
Subjective Progress Note Date: 09/17/23 Principal diagnosis: Reason for follow-up is left mastitis breast fold and groin cutaneous candidiasis Patient is a 68-year-old female with a past medical history signif icant for hypertension atrial fibrillation heart failure rheumatoid arthritis hypothyroidism patient was brought into the hospital for evaluation of generalized weakness fatigue chest pain, patient was noticed to have some tenderness on abdominal manage yesterday CT was done which came back negative for any diverticulitis or abscess patient noticed to have significant redness to the left breast concerning for mastitis On today's evaluation that is 09/17/2023, Patient is more awake and alert today, patient is afebrile ,patient is currently on room air and denies having any shortness of breath, the patient denies any chest pain or cough, the patient denies any nausea vomiting did not have any abdominal pain and no diarrhea, did mention she did have tenderness to the left breast for few days did not mention it yesterday as the patient mention she was kind of out of it. Patient white count normalized to 9.7, creatinine 0.64 cultures are currently pending Objective - Vital Signs Vital signs: Vital Signs Temp 97.5 F L 09/17/23 11:49 Pulse 66 09/17/23 11:49 Resp 14 09/17/23 11:49 BP 104/69 09/17/23 11:49 Pulse Ox 97 09/17/23 11:49 FiO2 Intake & Output 09/16/23 09/17/23 09/17/23 18:59 06:59 18:59 Intake Total 250 240 Output Total 400 Balance -150 240 Weight 113.852 kg Intake: IV 10 Invasive Line 1 10 Oral 240 240 Output: Urine 400 Other: Voiding Method External Catheter Bedpan Bedpan # Voids 1 1 1 # Bowel Movements 1 1 - Exam GENERAL DESCRIPTION: An elderly female lying in bed in no distress RESPIRATORY SYSTEM: Unlabored breathing , decreased breath sounds at bases HEART: S1 S2 regular rate and rhythm , ABDOMEN: Soft , no tenderness Examination of the left breast in presence of the nurse patient's history did have evidence of diffuse redness warmth and tenderness and evidence of yeast infection in the breast and groin fold area EXTREMITIES: No edema feet - Labs CBC & Chem 7: 09/17/23 07:28 09/17/23 07:28 Labs: Abnormal Lab Results - Last 24 Hours (Table) 09/16/23 09/16/23 09/16/23 Range/Units 15:45 15:45 15:45 ESR 37 H (0-30) mm/Hr Chloride (98-107) mmol/L BUN (7-17) mg/dL Creatinine (0.52-1.04) mg/dL Glucose (74-99) mg/dL Hemoglobin A1c (<=6.0) % Calcium (8.4-10.2) mg/dL C-Reactive Protein 15.9 H (<1.0) mg/dL HDL Cholesterol (40.00-60.00) mg/dL Procalcitonin 0.56 H (0.02-0.09) ng/mL Ur Random Microalbumin (0.0-1.9) mg/dL Microalb/Creat Ratio (0-30) mg/g Cr 09/16/23 09/16/23 09/16/23 Range/Units 15:59 15:59 15:59 ESR (0-30) mm/Hr Chloride 109 H (98-107) mmol/L BUN 39 H (7-17) mg/dL Creatinine 1.20 H (0.52-1.04) mg/dL Glucose 191 H (74-99) mg/dL Hemoglobin A1c 8.0 H (<=6.0) % Calcium (8.4-10.2) mg/dL C-Reactive Protein (<1.0) mg/dL HDL Cholesterol 61.60 H (40.00-60.00) mg/dL Procalcitonin (0.02-0.09) ng/mL Ur Random Microalbumin 74.2 H (0.0-1.9) mg/dL Microalb/Creat Ratio 681 H (0-30) mg/g Cr 09/17/23 Range/Units 07:28 ESR (0-30) mm/Hr Chloride (98-107) mmol/L BUN (7-17) mg/dL Creatinine (0.52-1.04) mg/dL Glucose 118 H (74-99) mg/dL Hemoglobin A1c (<=6.0) % Calcium 8.3 L (8.4-10.2) mg/dL C-Reactive Protein (<1.0) mg/dL HDL Cholesterol (40.00-60.00) mg/dL Procalcitonin (0.02-0.09) ng/mL Ur Random Microalbumin (0.0-1.9) mg/dL Microalb/Creat Ratio (0-30) mg/g Cr Microbiology - Last 24 Hours (Table) 09/16/23 00:35 Blood Culture - Preliminary Blood Assessment and Plan (1) Mastitis, left, acute Current Visit: Yes Status: Acute Code(s): N61.0 - MASTITIS WITHOUT ABSCESS SNOMED Code(s): 33709771 (2) Cutaneous candidiasis Current Visit: Yes Status: Acute Code(s): B37.2 - CANDIDIASIS OF SKIN AND NAIL SNOMED Code(s): 93751207 Plan: 1patient present hospitalized weakness not feeling well patient did have an episode of vomiting and the patient noticed to be tender in the left lower quad rant area with initial concern for possible diverticulitis however CT has been negative patient also noticed to have a significant cellulitis of the left breast in addition to the breast and groin fold cutaneous candidiasis 2patient antibiotic has been adjusted to Unasyn 3 g B6 to continue along with nystatin powder to the breast and groin fold area Family at the bedside questions were answered Dictation was produced using [employer] dictation software. please excuse any grammatical, word or spelling errors. Time with Patient: Less than 30
[2023-09-17] MEDS: NYSTATIN 100,000 UNIT/GM POWD 15 GM TOPICAL SCH (16:35)
[2023-09-17] MEDS: HYDROcodone/APAP 5-325MG 1 EACH TAB PO PRN (16:43)
--- NOTE | 2023-09-18 07:53 | USB ---
Reason for Exam: Clinical finding. Risk Values: Saloni 5 year model risk: 1.1%. NCI Lifetime model risk: 3.5%. Technique: Method: Whole Breast Handheld. Findings: The whole breast of the left breast, the axilla of the left breast and the retroareolar of the left breast were scanned. No solid or cystic masses are identified. Patient prior lumpectomy site is not identified. Some mild skin thickening may be present. Overall Assessment: Negative, BI-RAD 1 Electronically signed and approved by: Tyler Ferreira D.O. Radiologis
--- NOTE | 2023-09-18 11:45 | P.PN ---
Subjective Progress Note Date: 09/18/23 Principal diagnosis: Reason for follow-up is left mastitis breast fold and groin cutaneous candidiasis Patient is a 68-year-old female with a past medical history signif icant for hypertension atrial fibrillation heart failure rheumatoid arthritis hypothyroidism patient was brought into the hospital for evaluation of generalized weakness fatigue chest pain, patient was noticed to have some tenderness on abdominal manage yesterday CT was done which came back negative for any diverticulitis or abscess patient noticed to have significant redness to the left breast concerning for mastitis On today's evaluation that is 09/18/2023,the patient denies any fever or any c hills, patient is breathing comfortably on room air, the patient denies chest pain shortness of breath and no significant cough, patient denies abdominal pain, no nausea vomiting or diarrhea. Patient is recommending a pain to the left breast area but no worsening pain. Patient white count is 9.7 creatinine 0.64 as of yesterday no lab today blood cultures are pending Objective - Vital Signs Vital signs: Vital Signs Temp 98.2 F 09/18/23 08:00 Pulse 69 09/18/23 08:00 Resp 14 09/18/23 08:00 BP 182/66 09/18/23 08:00 Pulse Ox 97 09/18/23 08:00 FiO2 Intake & Output 09/17/23 09/18/23 09/18/23 18:59 06:59 18:59 Intake Total 358 110 Balance 358 110 Intake: IV 10 Invasive Line 1 10 Intake, IV Titration 100 Amount Ampicillin-Sulbactam 3 gm 100 In Sodium Chloride 0.9% 100 ml @ 200 mls/hr IVPB Q8HR [facility] Rx#:[id number] Oral 358 Other: Voiding Method Bedpan Bedpan Bedpan # Voids 1 1 # Bowel Movements 1 1 - Exam GENERAL DESCRIPTION: An elderly female lying in bed in no distress RESPIRATORY SYSTEM: Unlabored breathing , decreased breath sounds at bases HEART: S1 S2 regular rate and rhythm , ABDOMEN: Soft , no tenderness Examination of the left breast in presence of the patient has been overall swelling redness slightly decreased EXTREMITIES: No edema feet - Labs CBC & Chem 7: 09/17/23 07:28 09/17/23 07:28 Labs: Microbiology - Last 24 Hours (Table) 09/16/23 00:35 Blood Culture - Preliminary Blood Assessment and Plan (1) Mastitis, left, acute Current Visit: Yes Status: Acute Code(s): N61.0 - MASTITIS WITHOUT ABSCESS SNOMED Code(s): 32980172 (2) Cutaneous candidiasis Current Visit: Yes Status: Acute Code(s): B37.2 - CANDIDIASIS OF SKIN AND N AIL SNOMED Code(s): 55970187 Plan: 1patient present hospitalized weakness not feeling well patient did have an episode of vomiting and the patient noticed to be tender in the left lower quadrant area with initial concern for possible diverticulitis however CT has been negative patient also noticed to have a significant cellulitis of the left breast in addition to the breast and groin fold cutaneous candidiasis 2patient did have some improvement to the left breast cellulitis, however still have extensive cellulitis, we will continue patient on Unasyn for another 24 to 48 hours before transition to oral antibiotics Dictation was produced using [employer] dictation software. please excuse any grammatical, word or spelling errors. Time with Patient: Less than 30
[2023-09-18] MEDS: AMPICILLIN-SULBACTAM 3 GM in SODIUM CHLORIDE 0.9% 100 ML IVPB SCH (13:02)
[2023-09-18] MEDS: PSYLLIUM HUSK 100% 6 GM PACKET PO SCH (13:02)
--- NOTE | 2023-09-18 13:32 | P.PN ---
Subjective Progress Note Date: 09/18/23 CHIEF COMPLAINT: Left breast cellulitis HISTORY OF PRESENT ILLNESS: Patient continues to complain of pain and swelling in the left breast. Left breast ultrasound showed no evidence of mass. Some mild skin thickening may be present. Afebrile. WBC has normalized from 18.8- 9.7 PHYSICAL EXAM: VITAL SIGNS: Reviewed GENERAL: Well-developed in no acute distress. HEENT: No sclera icterus. Extraocular movements grossly intact. Moist buccal mucosa. Head is atraumatic, normocephalic. Hears conversational speech. No nasal drainage. NECK: Supple without lymphadenopathy. CHEST: Non-labored respirations and equal bilateral excursions. CARDIOVASCULAR: Palpable 2+ radial pulses. ABDOMEN: Soft. Nondistended. Nontender. MUSCULOSKELETAL: No clubbing or cyanosis. NEUROLOGIC: No focal or lateralizing signs. Cranial nerves II through XII grossly intact. PSYCH: Appropriate affect. Alert and oriented to person, place and time. SKIN: Extensive left breast cellulitis. Erythema along the left breast. Tender with palpation. No drainage noted. ASSESSMENT: 1. Extensive left breast cellulitis 2. History of left breast cancer with lumpectomy and radiation treatment PLAN: -Continue antibiotics per infectious disease -Ice packs as needed -Continue pain management -Continue supportive care Physician Work Order Detailer note has been reviewed by physician. Signing provider agrees with the documented findings, assessment, and plan of care. Objective - Vital Signs Vital signs: Vital Signs Temp 98.2 F 09/18/23 08:00 Pulse 69 09/18/23 08:00 Resp 14 09/18/23 08:00 BP 182/66 09/18/23 08:00 Pulse Ox 97 09/18/23 08:00 FiO2 Intake & Output 09/17/23 09/18/23 09/18/23 18:59 06:59 18:59 Intake Total 358 110 118 Balance 358 110 118 Intake: IV 10 Invasive Line 1 10 Intake, IV Titration 100 Amount Ampicillin-Sulbactam 3 gm 100 In Sodium Chloride 0.9% 100 ml @ 200 mls/hr IVPB Q8HR [facility] Rx#:[id number] Oral 358 118 Other: Voiding Method Bedpan Bedpan Bedpan # Voids 1 1 # Bowel Movements 1 1 - Labs CBC & Chem 7: 09/17/23 07:28 09/17/23 07:28 Labs: Microbiology - Last 24 Hours (Table) 09/16/23 00:35 Blood Culture - Preliminary Blood
--- NOTE | 2023-09-18 14:21 | P.PN ---
Progress Note - Text Progress Note Date: 09/18/23 68-year-old female came in with complaints of extreme fatigue and malaise without any fevers which started all of a sudden yesterday evening. Patient was also complaining of chest pain which appeared to be noncardiac now complaining of headache severe 6/10 in the frontal area denies any blurry vision. Troponins were negative EKG did not show any acute ST-T wave changes but consistent with ventricular conduction delay with J-point elevation and Buice biphasic QRS complexes. Patient does have leukocytosis denies any symptoms of UTI or cough chest x-ray did not show any pneumonia patient denies any abdominal pain. Blood cultures were ordered results are pending patient was given a dose of Rocephin although urine is not that impressive for urinary tract infection, only showed trace leukocyte esterase but does have hyaline casts. TSH was ordered and D- dimer was ordered. 09/17/2023 Patient is evaluated today sitting up in the chair she continues to report extreme fatigue and malaise remains afebrile. Abdominal pelvis CT is showing no intra-abdominal process to account for infection. Her noted that her left breast is significantly cellulitic around the nipple area was outlined and discussed with infectious disease antibiotics been changed to IV Unasyn. She reports having a lumpectomy done at [facility] by Dr. Herr in the last year to the left breast. She completed radiation therapy also. Cardiology has signed off. Her CBC today is unremarkable her white count remains normal at 9.7, renal function has completely normalized with a BUN of 11 and a creatinine of 0.64. Her TSH is normal. Procalcitonin is mildly elevated at 0.56. Hemodynamically she is stable. September 18: Still having pain in the left breast. Patient has a skin marker. Redness is actually decreased. Patient does have a supportive bra from a coronary bypass. I have asked the to bring it in. Tolerating a diet. Has slight loose stool. Add Metamucil. Continue IV Unasyn. Discussed with patient and . Home dose of flecainide, Toprol-XL etc. to be resumed. Active Medications Acetaminophen (Acetaminophen Tab 325 Mg Tab) 325 mg PO Q6HR PRN PRN Reason: Fever and/ or Pain Last Admin: 09/17/23 14:44 Dose: 325 mg Hydrocodone Bitart/Acetaminophen (Hydrocodone/Apap 5-325mg 1 Each Tab) 1 each PO Q4HR PRN PRN Reason: Pain Last Admin: 09/18/23 10:25 Dose: 1 each Aspirin (Aspirin 81 Mg) 81 mg PO DAILY [facility] Last Admin: 09/18/23 09:06 Dose: 81 mg Ampicillin Sodium/Sulbactam (Sodium 3 gm/ Sodium Chloride) 100 mls @ 200 mls/hr IVPB Q6HR [facility]; Protocol Last Admin: 09/18/23 13:02 Dose: 200 mls/hr Letrozole (Letrozole 2.5 Mg Tab) 2.5 mg PO DAILY [facility] Levothyroxine Sodium (Levothyroxine 25 Mcg Tab) 50 mcg PO SUTUTHFRSA [facility] Levothyroxine Sodium (Levothyroxine 25 Mcg Tab) 25 mcg PO MOTUWE [facility] Metoprolol Succinate (Metoprolol Succinate (Er) 50 Mg Tab.Er.24h) 50 mg PO BID [facility] Metoprolol Tartrate (Metoprolol Tartrate 25 Mg Tab) 25 mg PO BID [facility] Last Admin: 09/18/23 09:06 Dose: 25 mg Nitroglycerin (Nitroglycerin Sl Tabs 0.4 Mg Tab) 0.4 mg SUBLINGUAL Q5M PRN PRN Reason: Chest Pain Non-Formulary Medication (Flecainide Acetate [Tambocor]) 50 mg PO HS [facility] Non-Formulary Medication (Flecainide Acetate [Tambocor]) 100 mg PO DAILY [facility] Non-Formulary Medication (Multivit-Min/Iron/Folic/Lutein [Centrum Silver Women Tablet]) 1 tab PO DAILY [facility] Non-Formulary Medication (Rosuvastatin) 10 mg PO DAILY [facility] Nystatin (Nystatin 100,000 Unit/Gm Powd 15 Gm) 1 applic TOPICAL BID [facility]; Protocol Last Admin: 09/18/23 09:06 Dose: 1 applic Pantoprazole Sodium (Pantoprazole 40 Mg Tablet) 40 mg PO AC-BID [facility] Last Admin: 09/18/23 06:34 Dose: 40 mg Potassium Chloride (Potassium Chloride Er 20 Meq Tab.Er) 20 meq PO DAILY [facility] Last Admin: 09/18/23 09:06 Dose: 20 meq Psyllium Hydrophilic Mucilloid (Psyllium Husk 100% 6 Gm Packet) 6 gm PO BID [facility] Last Admin: 09/18/23 13:02 Dose: 6 gm Rivaroxaban (Rivaroxaban 20 Mg Tab) 20 mg PO HS [facility]; Protocol Last Admin: 09/17/23 20:24 Dose: 20 mg Sodium Chloride (Sodium Chloride 0.9% Flush 10 Ml Syringe) 10 ml IV BID [facility] Last Admin: 09/18/23 09:07 Dose: 10 ml On examination: VITAL SIGNS: [98.2, 66, 69, 14, 182/66, 97% room air. Previous blood pressure 154/67.] GENERAL APPEARANCE: BMI 43.1, sitting up in a chair. HEENT: Normal external appearance of nose and ear. Oral cavity normal EYES: Pupils equal. Conjunctiva normal. NECK: JVD not raised. Mass not palpable. RESPIRATORY: Respiratory effort normal. Lungs clear to auscultation. CARDIOVASCULAR: First and second sounds normal. No edema. ABDOMEN: Soft. Liver and spleen not palpable. No tenderness. No mass palpable. PSYCHIATRY: Alert and oriented x3. Mood and affect normal. CHEST wall [seen in the presence of security rep nurse]: Area of redness tenderness decreased inside the skin marker along the left breast. No obvious breakdown of skin noted. INVESTIGATIONS, reviewed in the clinical context: September 17: White count 9.7 hemoglobin 12.3 platelets 196 sodium 139 potassium 4.2 creatinine 0.64 September 16: Creatinine 1.2 CRP 15.9 Procalcitonin 0.56 Troponin I less than 0.012 Assessment and plan -Acute severe cellulitis of the left breast.: Slow improvement . IV Unasyn. 3 g every 6 -Acute renal injury, probably combination of ATN and prerenal.: Better Received IV fluids -Chest pain secondary to left breast cellulitis. Noncardiac -Paroxysmal atrial fibrillation presently sinus rhythm rate controlled Xarelto. Flecainide Toprol-XL -Essential hypertension Toprol-XL -Sleep apnea -Hypothyroidism: Continue Synthroid DVT prophylaxis: On xarelto
[2023-09-18] MEDS: METOPROLOL SUCCINATE (ER) 50 MG TAB.ER.24H PO SCH (16:01)
[2023-09-18] MEDS: ATORVASTATIN 20 MG TAB PO SCH (16:02)
[2023-09-18] MEDS: LEVOTHYROXINE 25 MCG TAB PO SCH (16:02)
[2023-09-18] MEDS: FLECAINIDE 50 MG TAB PO SCH ×2 (16:02→20:28)
[2023-09-18] MEDS: LETROZOLE 2.5 MG TAB PO SCH (16:03)
[2023-09-19] MEDS: MULTIVITAMINS, THERA 1 EACH TAB PO SCH (08:22)
--- NOTE | 2023-09-19 13:16 | P.PN ---
Subjective Progress Note Date: 09/19/23 CHIEF COMPLAINT: Left breast cellulitis HISTORY OF PRESENT ILLNESS: Patient noting improvement in the left breast cellulitis. Decreased redness. She reports her pain is a little less. Afebrile. PHYSICAL EXAM: VITAL SIGNS: Reviewed GENERAL: Well-developed in no acute distress. HEENT: No sclera icterus. Extraocular movements grossly intact. Moist buccal mucosa. Head is atraumatic, normocephalic. Hears conversational speech. No nasal drainage. NECK: Supple without lymphadenopathy. CHEST: Non-labored respirations and equal bilateral excursions. CARDIOVASCULAR: Palpable 2+ radial pulses. ABDOMEN: Soft. Nondistended. Nontender. MUSCULOSKELETAL: No clubbing or cyanosis. NEUROLOGIC: No focal or lateralizing signs. Cranial nerves II through XII grossly intact. PSYCH: Appropriate affect. Alert and oriented to person, place and time. SKIN: Extensive left breast cellulitis. Erythema decreasing. No drainage noted. ASSESSMENT: 1. Extensive left breast cellulitis. No evidence of abscess on ultrasound 2. History of left breast cancer with lumpectomy and radiation treatment PLAN: -Continue antibiotics per infectious disease -Ice packs as needed -Continue pain management -Continue supportive care -No surgical intervention planned Physician [employer] note has been reviewed by physician. Signing provider agrees with the documented findings, assessment, and plan of care. Objective - Vital Signs Vital signs: Vital Signs Temp 97.9 F 09/19/23 08:18 Pulse 60 09/19/23 08:18 Resp 17 09/19/23 08:18 BP 135/61 09/19/23 08:18 Pulse Ox 97 09/19/23 08:18 FiO2 Intake & Output 09/18/23 09/19/23 09/19/23 18:59 06:59 18:59 Intake Total 1434 0 360 Balance 1434 0 360 Intake: Intake, IV Titration 200 Amount Ampicillin-Sulbactam 3 gm 200 In Sodium Chloride 0.9% 100 ml @ 200 mls/hr IVPB Q6HR [facility] Rx#:[id number] Oral 1234 0 360 Other: Voiding Method Bedpan Bedpan Bedpan # Voids 3 2 # Bowel Movements 2 - Labs CBC & Chem 7: 09/17/23 07:28 09/17/23 07:28 Labs: Microbiology - Last 24 Hours (Table) 09/16/23 00:35 Blood Culture - Preliminary Blood
--- NOTE | 2023-09-19 13:40 | CDI ---
Documentation Clarification Form Date: 09/19/2023 01:19:34 PM From: Gina Jacobo RN, CCDS Phone: [phone] Admit Date: 09/16/2023 12:12:00 AM Patient Name: Veronica Mckeon Visit Number: [id number] Discharge Date: ATTENTION: The Clinical Documentation Specialists (CDI) and [facility] Coding Staff appreciate your assistance in clarifying documentation. Please respond to the clarification below the line at the bottom and electronically sign. The CDI & [facility] Coding staff will review the response and follow-up if needed. Please note: Queries are made part of the Legal Health Record. If you have any questions, please contact the author of this message via ITS. Dr. Lucas Krishna Your patient has BMI 43.1 documentation in the medical records. Based on this information and the findings below, is there an additional diagnosis that is clinically appropriate for this patient? Patient history/risk factors: Atrial Fibrillation, Chest Pain, Heart Failure, GI Bleed, Hypertension, Rheumatoid Arthritis, Thyroid Disorder Clinical Indicators: 68-year-old present with generalized weakness and fatigue, chest pain, shortness of breath. She is 5ft 4 in 113.852 kg BMI 43.1 KG Treatment: PT/OT Evaluate and treat Is there an additional diagnosis that is clinically appropriate for this patient? [ + ] Morbid obesity BMI 43.1 [ ] Unable to determine [ ] Other, please specify (Template Last Reviewed: August 2022) MTDD
--- NOTE | 2023-09-19 15:11 | P.PN ---
Subjective Progress Note Date: 09/19/23 Principal diagnosis: Reason for follow-up is left mastitis breast fold and groin cutaneous candidiasis Patient is a 68-year-old female with a past medical history signif icant for hypertension atrial fibrillation heart failure rheumatoid arthritis hypothyroidism patient was brought into the hospital for evaluation of generalized weakness fatigue chest pain, patient was noticed to have some tenderness on abdominal manage yesterday CT was done which came back negative for any diverticulitis or abscess patient noticed to have significant redness to the left breast concerning for mastitis On today's evaluation that is 09/19/2023,the patient remains to be afebrile, p atient is on room air not requiring supplemental oxygen and denies any shortness of breath no chest pain or cough.Patient denies having any nausea or vomiting, no abdominal pain complaining of some diarrhea, left breast discomfort has decreased in intensity. No new labs has been obtained today blood cultures pending Objective - Vital Signs Vital signs: Vital Signs Temp 97.9 F 09/19/23 08:18 Pulse 60 09/19/23 08:18 Resp 17 09/19/23 08:18 BP 135/61 09/19/23 08:18 Pulse Ox 97 09/19/23 08:18 FiO2 Intake & Output 09/18/23 09/19/23 09/19/23 18:59 06:59 18:59 Intake Total 1434 0 360 Balance 1434 0 360 Intake: Intake, IV Titration 200 Amount Ampicillin-Sulbactam 3 gm 200 In Sodium Chloride 0.9% 100 ml @ 200 mls/hr IVPB Q6HR [facility] Rx#:[id number] Oral 1234 0 360 Other: Voiding Method Bedpan Bedpan Bedpan # Voids 3 2 # Bowel Movements 2 - Exam GENERAL DESCRIPTION: An elderly female lying in bed in no distress RESPIRATORY SYSTEM: Unlabored breathing , decreased breath sounds at bases HEART: S1 S2 regular rate and rhythm , ABDOMEN: Soft , no tenderness Examination of the left breast in presence of the patient has been overall swelling redness has decreased in intensity EXTREMITIES: No edema feet - Labs CBC & Chem 7: 09/17/23 07:28 09/17/23 07:28 Labs: Microbiology - Last 24 Hours (Table) 09/16/23 00:35 Blood Culture - Preliminary Blood Assessment and Plan (1) Mastitis, left, acute Current Visit: Yes Status: Acute Code(s): N61.0 - MASTITIS WITHOUT ABSCESS SNOMED Code(s): 32287391 (2) Cutaneous candidiasis Current Visit: Yes Status: Acute Code(s): B37.2 - CANDIDIASIS OF SKIN AND NAIL SNOMED Code(s): 77877508 Plan: 1patient present hospitalized weakness not feeling well patient did have an episode of vomiting and the patient noticed to be tender in the left lower quadrant area with initial concern for possible diverticulitis however CT has been negative patient also noticed to have a significant cellulitis of the left breast in addition to the breast and groin fold cutaneous candidiasis 2patient is slowly clinical improving as far as left breast cellulitis, patient to continue with Unasyn for another 24 hours before transition to oral antibiotics 3diarrhea possible antibiotic associated patient encouraged to increase her probiotic and yogurt intake, Dictation was produced using [employer] dictation software. please excuse any grammatical, word or spelling errors. Time with Patient: Less than 30
--- NOTE | 2023-09-19 15:35 | P.PN ---
Progress Note - Text Progress Note Date: 09/19/23 68-year-old female came in with complaints of extreme fatigue and malaise without any fevers which started all of a sudden yesterday evening. Patient was also complaining of chest pain which appeared to be noncardiac now complaining of headache severe 6/10 in the frontal area denies any blurry vision. Troponins were negative EKG did not show any acute ST-T wave changes but consistent with ventricular conduction delay with J-point elevation and Buice biphasic QRS complexes. Patient does have leukocytosis denies any symptoms of UTI or cough chest x-ray did not show any pneumonia patient denies any abdominal pain. Blood cultures were ordered results are pending patient was given a dose of Rocephin although urine is not that impressive for urinary tract infection, only showed trace leukocyte esterase but does have hyaline casts. TSH was ordered and D- dimer was ordered. 09/17/2023 Patient is evaluated today sitting up in the chair she continues to report extreme fatigue and malaise remains afebrile. Abdominal pelvis CT is showing no intra-abdominal process to account for infection. Her noted that her left breast is significantly cellulitic around the nipple area was outlined and discussed with infectious disease antibiotics been changed to IV Unasyn. She reports having a lumpectomy done at [facility] by Dr. Herr in the last year to the left breast. She completed radiation therapy also. Cardiology has signed off. Her CBC today is unremarkable her white count remains normal at 9.7, renal function has completely normalized with a BUN of 11 and a creatinine of 0.64. Her TSH is normal. Procalcitonin is mildly elevated at 0.56. Hemodynamically she is stable. September 18: Still having pain in the left breast. Patient has a skin marker. Redness is actually decreased. Patient does have a supportive bra from a coronary bypass. I have asked the to bring it in. Tolerating a diet. Has slight loose stool. Add Metamucil. Continue IV Unasyn. Discussed with patient and . Home dose of flecainide, Toprol-XL etc. to be resumed. September 19: Sitting up in a chair. She did try her Bra. But decided to take it off. Some improvement in pain and redness in the left breast. Continue IV Unasyn. at the bedside. Tolerating diet. Active Medications Acetaminophen (Acetaminophen Tab 325 Mg Tab) 325 mg PO Q6HR PRN PRN Reason: Fever and/ or Pain Last Admin: 09/17/23 14:44 Dose: 325 mg Hydrocodone Bitart/Acetaminophen (Hydrocodone/Apap 5-325mg 1 Each Tab) 1 each PO Q4HR PRN PRN Reason: Pain Last Admin: 09/19/23 08:22 Dose: 1 each Aspirin (Aspirin 81 Mg) 81 mg PO DAILY [facility] Last Admin: 09/19/23 08:22 Dose: 81 mg Atorvastatin Calcium (Atorvastatin 20 Mg Tab) 20 mg PO DAILY [facility] Last Admin: 09/19/23 08:22 Dose: 20 mg Flecainide Acetate (Flecainide 50 Mg Tab) 50 mg PO HS [facility] Last Admin: 09/18/23 20:28 Dose: 50 mg Flecainide Acetate (Flecainide 50 Mg Tab) 100 mg PO DAILY [facility] Last Admin: 09/19/23 08:22 Dose: 100 mg Ampicillin Sodium/Sulbactam (Sodium 3 gm/ Sodium Chloride) 100 mls @ 200 mls/hr IVPB Q6HR [facility]; Protocol Last Admin: 09/19/23 10:48 Dose: Not Given Letrozole (Letrozole 2.5 Mg Tab) 2.5 mg PO DAILY [facility] Last Admin: 09/19/23 08:24 Dose: 2.5 mg Levothyroxine Sodium (Levothyroxine 50 Mcg Tab) 50 mcg PO [id number]@0630 [facility] Levothyroxine Sodium (Levothyroxine 25 Mcg Tab) 25 mcg PO [id number] [facility] Last Admin: 09/19/23 06:29 Dose: 25 mcg Metoprolol Succinate (Metoprolol Succinate (Er) 50 Mg Tab.Er.24h) 50 mg PO BID [facility] Last Admin: 09/19/23 08:22 Dose: 50 mg Multivitamins (Multivitamins, Thera 1 Each Tab) 1 each PO DAILY [facility] Last Admin: 09/19/23 08:22 Dose: 1 each Nitroglycerin (Nitroglycerin Sl Tabs 0.4 Mg Tab) 0.4 mg SUBLINGUAL Q5M PRN PRN Reason: Chest Pain Nystatin (Nystatin 100,000 Unit/Gm Powd 15 Gm) 1 applic TOPICAL BID [facility]; Protocol Last Admin: 09/19/23 09:54 Dose: 1 applic Pantoprazole Sodium (Pantoprazole 40 Mg Tablet) 40 mg PO AC-BID [facility] Last Admin: 09/19/23 06:29 Dose: 40 mg Potassium Chloride (Potassium Chloride Er 20 Meq Tab.Er) 20 meq PO DAILY [facility] Last Admin: 09/19/23 08:22 Dose: 20 meq Psyllium Hydrophilic Mucilloid (Psyllium Husk 100% 6 Gm Packet) 6 gm PO BID [facility] Last Admin: 09/19/23 08:22 Dose: 6 gm Rivaroxaban (Rivaroxaban 20 Mg Tab) 20 mg PO HS [facility]; Protocol Last Admin: 09/18/23 20:28 Dose: 20 mg Sodium Chloride (Sodium Chloride 0.9% Flush 10 Ml Syringe) 10 ml IV BID [facility] Last Admin: 09/19/23 14:42 Dose: Not Given On examination: VITAL SIGNS: 97.4, 57, 16, 104/59, 97% room air GENERAL APPEARANCE: Sitting up in a chair. HEENT: Normal external appearance of nose and ear. Oral cavity normal EYES: Pupils equal. Conjunctiva normal. NECK: JVD not raised. Mass not palpable. RESPIRATORY: Respiratory effort normal. Lungs clear to auscultation. CARDIOVASCULAR: First and second sounds normal. No edema. ABDOMEN: Soft. Liver and spleen not palpable. No tenderness. No mass palpable. PSYCHIATRY: Alert and oriented x3. Mood and affect normal. CHEST wall decreased tenderness in the left breast and decreased redness INVESTIGATIONS, reviewed in the clinical context: September 17: White count 9.7 hemoglobin 12.3 platelets 196 sodium 139 potassium 4.2 creatinine 0.64 September 16: Creatinine 1.2 CRP 15.9 Procalcitonin 0.56 Troponin I less than 0.012 Assessment and plan -Acute severe cellulitis of the left breast.: Some improvement . IV Unasyn. 3 g every 6 -Acute renal injury, probably combination of ATN and prerenal.: Better Received IV fluids -Chest pain secondary to left breast cellulitis. Noncardiac -Paroxysmal atrial fibrillation presently sinus rhythm rate controlled Xarelto. Flecainide Toprol-XL -Essential hypertension Toprol-XL -Sleep apnea -Hypothyroidism: Continue Synthroid Continue current medication treatment plan. Negative for abscess on ultrasound. Continue with ice pack for local care and antibiotics.
[2023-09-19] MEDS: CEPHALEXIN 500 MG CAP PO SCH (17:46)
--- NOTE | 2023-09-20 11:44 | P.PN ---
Subjective Progress Note Date: 09/20/23 Principal diagnosis: Reason for follow-up is left mastitis breast fold and groin cutaneous candidiasis Patient is a 68-year-old female with a past medical history signif icant for hypertension atrial fibrillation heart failure rheumatoid arthritis hypothyroidism patient was brought into the hospital for evaluation of generalized weakness fatigue chest pain, patient was noticed to have some tenderness on abdominal manage yesterday CT was done which came back negative for any diverticulitis or abscess patient noticed to have significant redness to the left breast concerning for mastitis On today's evaluation that is 09/20/2023, the patient continues to be afebrile, the patient is on room air and breathing comfortably, the Pt denies having any chest pain or cough, the patient denies having any abdominal pain no vomiting, diarrhea has slowed down patient did lost her IV nursing staff not able to place a peripheral IV hence antibiotic was switched to p.o. yesterday with the patient has tolerated. Patient white count is 9.7, creatinine 0.64 blood culture so far negative Objective - Vital Signs Vital signs: Vital Signs Temp 97.7 F 09/20/23 08:22 Pulse 61 09/20/23 08:22 Resp 16 09/20/23 08:22 BP 118/71 09/20/23 08:22 Pulse Ox 97 09/20/23 08:22 FiO2 Intake & Output 09/19/23 09/20/23 09/20/23 18:59 06:59 18:59 Intake Total 360 240 Balance 360 240 Intake: Oral 360 240 Other: Voiding Method Bedpan Bedpan Toilet Bedside Commode # Voids 2 - Exam GENERAL DESCRIPTION: An elderly female lying in bed in no distress RESPIRATORY SYSTEM: Unlabored breathing , decreased breath sounds at bases HEART: S1 S2 regular rate and rhythm , ABDOMEN: Soft , no tenderness EXTREMITIES: No edema feet - Labs CBC & Chem 7: 09/17/23 07:28 09/17/23 07:28 Labs: Abnormal Lab Results - Last 24 Hours (Table) 09/19/23 Range/Units 09:27 Procalcitonin 0.14 H (0.02-0.09) ng/mL Microbiology - Last 24 Hours (Table) 09/16/23 00:35 Blood Culture - Preliminary Blood Assessment and Plan (1) Mastitis, left, acute Current Visit: Yes Status: Acute Code(s): N61.0 - MASTITIS WITHOUT ABSCESS SNOMED Code(s): 89265899 (2) Cutaneous candidiasis Current Visit: Yes Status: Acute Code(s): B37.2 - CANDIDIASIS OF SKIN AND NAIL SNOMED Code(s): 47918555 Plan: 1patient present hospitalized weakness not feeling well patient did have an episode of vomiting and the patient noticed to be tender in the left lower quadrant area with initial concern for possible diverticulitis however CT has been negative patient also noticed to have a significant cellulitis of the left breast in addition to the breast and groin fold cutaneous candidiasis 2patient has shown clinical improvement as far as left breast cellulitis recommending finishing therapy with the Keflex x 10 days and will apply nystatin powder to the groin and breast fold area twice a day for 7 to 10 days prescription sent to the pharmacy and close outpatient follow-up Dictation was produced using [employer] dictation software. please excuse any gramm atical, word or spelling errors. Time with Patient: Less than 30
--- NOTE | 2023-09-20 13:40 | P.PN ---
Subjective Progress Note Date: 09/20/23 CHIEF COMPLAINT: Left breast cellulitis HISTORY OF PRESENT ILLNESS: Patient continues to complain of pain in that left breast. There has been some mild decrease in the erythema. Afebrile. PHYSICAL EXAM: VITAL SIGNS: Reviewed GENERAL: Well-developed in no acute distress. HEENT: No sclera icterus. Extraocular movements grossly intact. Moist buccal mucosa. Head is atraumatic, normocephalic. Hears conversational speech. No nasal drainage. NECK: Supple without lymphadenopathy. CHEST: Non-labored respirations and equal bilateral excursions. CARDIOVASCULAR: Palpable 2+ radial pulses. ABDOMEN: Soft. Nondistended. Nontender. MUSCULOSKELETAL: No clubbing or cyanosis. NEUROLOGIC: No focal or lateralizing signs. Cranial nerves II through XII grossly intact. PSYCH: Appropriate affect. Alert and oriented to person, place and time. SKIN: Extensive left breast cellulitis. Erythema decreasing. No drainage noted. Tender with palpation ASSESSMENT: 1. Extensive left breast cellulitis. No evidence of abscess on ultrasound 2. History of left breast cancer with lumpectomy and radiation treatment PLAN: -Continue antibiotics per infectious disease -Continue supportive care. Will have nursing staff try to elevate the breast. -Continue pain management -No surgical intervention planned Physician [employer] note has been reviewed by physician. Signing provider agrees with the documented findings, assessment, and plan of care. Objective - Vital Signs Vital signs: Vital Signs Temp 97.9 F 09/20/23 11:42 Pulse 64 09/20/23 11:42 Resp 18 09/20/23 11:42 BP 160/75 09/20/23 11:42 Pulse Ox 98 09/20/23 11:42 FiO2 Intake & Output 09/19/23 09/20/23 09/20/23 18:59 06:59 18:59 Intake Total 360 420 Balance 360 420 Intake: Oral 360 420 Other: Voiding Method Bedpan Bedpan Toilet Bedside Commode # Voids 2 - Labs CBC & Chem 7: 09/17/23 07:28 09/17/23 07:28 Labs: Abnormal Lab Results - Last 24 Hours (Table) 09/19/23 09/20/23 Range/Units 09:27 07:14 Procalcitonin 0.14 H 0.10 H (0.02-0.09) ng/mL Microbiology - Last 24 Hours (Table) 09/16/23 00:35 Blood Culture - Preliminary Blood
--- NOTE | 2023-09-20 16:24 | P.PN ---
Progress Note - Text Progress Note Date: 09/20/23 68-year-old female came in with complaints of extreme fatigue and malaise without any fevers which started all of a sudden yesterday evening. Patient was also complaining of chest pain which appeared to be noncardiac now complaining of headache severe 6/10 in the frontal area denies any blurry vision. Troponins were negative EKG did not show any acute ST-T wave changes but consistent with ventricular conduction delay with J-point elevation and Buice biphasic QRS complexes. Patient does have leukocytosis denies any symptoms of UTI or cough chest x-ray did not show any pneumonia patient denies any abdominal pain. Blood cultures were ordered results are pending patient was given a dose of Rocephin although urine is not that impressive for urinary tract infection, only showed trace leukocyte esterase but does have hyaline casts. TSH was ordered and D- dimer was ordered. 09/17/2023 Patient is evaluated today sitting up in the chair she continues to report extreme fatigue and malaise remains afebrile. Abdominal pelvis CT is showing no intra-abdominal process to account for infection. Her noted that her left breast is significantly cellulitic around the nipple area was outlined and discussed with infectious disease antibiotics been changed to IV Unasyn. She reports having a lumpectomy done at [facility] by Dr. Herr in the last year to the left breast. She completed radiation therapy also. Cardiology has signed off. Her CBC today is unremarkable her white count remains normal at 9.7, renal function has completely normalized with a BUN of 11 and a creatinine of 0.64. Her TSH is normal. Procalcitonin is mildly elevated at 0.56. Hemodynamically she is stable. September 18: Still having pain in the left breast. Patient has a skin marker. Redness is actually decreased. Patient does have a supportive bra from a coronary bypass. I have asked the to bring it in. Tolerating a diet. Has slight loose stool. Add Metamucil. Continue IV Unasyn. Discussed with patient and . Home dose of flecainide, Toprol-XL etc. to be resumed. September 19: Sitting up in a chair. She did try her Bra. But decided to take it off. Some improvement in pain and redness in the left breast. Continue IV Unasyn. at the bedside. Tolerating diet. September 20: Some improvement further in redness. Patient seen along with nurse. Eating well. Patient has a surgical bra from her coronary bypass is gone to bring that in. On IV Unasyn. Hopefully can be discharged home tomorrow. Active Medications Acetaminophen (Acetaminophen Tab 325 Mg Tab) 325 mg PO Q6HR PRN PRN Reason: Fever and/ or Pain Last Admin: 09/17/23 14:44 Dose: 325 mg Hydrocodone Bitart/Acetaminophen (Hydrocodone/Apap 5-325mg 1 Each Tab) 1 each PO Q4HR PRN PRN Reason: Pain Last Admin: 09/20/23 11:46 Dose: 1 each Aspirin (Aspirin 81 Mg) 81 mg PO DAILY [facility] Last Admin: 09/20/23 08:33 Dose: 81 mg Atorvastatin Calcium (Atorvastatin 20 Mg Tab) 20 mg PO DAILY [facility] Last Admin: 09/20/23 08:33 Dose: 20 mg Cephalexin (Cephalexin 500 Mg Cap) 500 mg PO QID [facility]; Protocol Last Admin: 09/20/23 11:47 Dose: 500 mg Flecainide Acetate (Flecainide 50 Mg Tab) 50 mg PO [facility] Last Admin: 09/19/23 21:01 Dose: 50 mg Flecainide Acetate (Flecainide 50 Mg Tab) 100 mg PO DAILY [facility] Last Admin: 09/20/23 08:34 Dose: 100 mg Letrozole (Letrozole 2.5 Mg Tab) 2.5 mg PO DAILY [facility] Last Admin: 09/20/23 08:34 Dose: 2.5 mg Levothyroxine Sodium (Levothyroxine 50 Mcg Tab) 50 mcg PO SuThFrSa@0630 [facility] Levothyroxine Sodium (Levothyroxine 25 Mcg Tab) 25 mcg PO MoTuWe@0630 [facility] Last Admin: 09/20/23 06:31 Dose: 25 mcg Metoprolol Succinate (Metoprolol Succinate (Er) 50 Mg Tab.Er.24h) 50 mg PO BID [facility] Last Admin: 09/20/23 08:34 Dose: 50 mg Multivitamins (Multivitamins, Thera 1 Each Tab) 1 each PO DAILY [facility] Last Admin: 09/20/23 08:33 Dose: 1 each Nitroglycerin (Nitroglycerin Sl Tabs 0.4 Mg Tab) 0.4 mg SUBLINGUAL Q5M PRN PRN Reason: Chest Pain Nystatin (Nystatin 100,000 Unit/Gm Powd 15 Gm) 1 applic TOPICAL BID [facility]; Protocol Last Admin: 09/20/23 08:34 Dose: 1 applic Pantoprazole Sodium (Pantoprazole 40 Mg Tablet) 40 mg PO AC-BID [facility] Last Admin: 09/20/23 06:31 Dose: 40 mg Potassium Chloride (Potassium Chloride Er 20 Meq Tab.Er) 20 meq PO DAILY [facility] Last Admin: 09/20/23 08:33 Dose: 20 meq Psyllium Hydrophilic Mucilloid (Psyllium Husk 100% 6 Gm Packet) 6 gm PO BID [facility] Last Admin: 09/20/23 08:36 Dose: Not Given Rivaroxaban (Rivaroxaban 20 Mg Tab) 20 mg PO HS [facility]; Protocol Last Admin: 09/19/23 21:01 Dose: 20 mg Sodium Chloride (Sodium Chloride 0.9% Flush 10 Ml Syringe) 10 ml IV BID [facility] Last Admin: 09/20/23 08:35 Dose: Not Given On examination: VITAL SIGNS: 97.9, 64, 18, 160/75, 98% room air GENERAL APPEARANCE: Sitting up in a chair. HEENT: Normal external appearance of nose and ear. Oral cavity normal EYES: Pupils equal. Conjunctiva normal. NECK: JVD not raised. Mass not palpable. RESPIRATORY: Respiratory effort normal. Lungs clear to auscultation. CARDIOVASCULAR: First and second sounds normal. No edema. ABDOMEN: Soft. Liver and spleen not palpable. No tenderness. No mass palpable. PSYCHIATRY: Alert and oriented x3. Mood and affect normal. CHEST wall decreased tenderness in the left breast and decreased redness INVESTIGATIONS, reviewed in the clinical context: September 20: Procalcitonin 0.1 September 17: White count 9.7 hemoglobin 12.3 platelets 196 sodium 139 potassium 4.2 creatinine 0.64 September 16: Creatinine 1.2 CRP 15.9 Procalcitonin 0.56 Troponin I less than 0.012 Assessment and plan -Acute severe cellulitis of the left breast.: Improving . IV Unasyn. 3 g every 6 Try surgical bra -Acute renal injury, probably combination of ATN and prerenal.: Better Received IV fluids -Chest pain secondary to left breast cellulitis. Noncardiac -Paroxysmal atrial fibrillation presently sinus rhythm rate controlled Xarelto. Flecainide Toprol-XL -Essential hypertension Toprol-XL -Sleep apnea -Hypothyroidism: Continue Synthroid Improving. Try surgical bra. For support. Plan for possibly discharge tomorrow.
--- NOTE | 2023-09-20 19:00 | CDI ---
Documentation Clarification Form Date: 09/20/2023 06:33:15 PM From: Gina Jacobo RN, CCDS Phone: [phone] Admit Date: 09/16/2023 12:12:00 AM Patient Name: Veronica Mckeon Visit Number: [id number] Discharge Date: ATTENTION: The Clinical Documentation Specialists (CDI) and [facility] Coding Staff appreciate your assistance in clarifying documentation. Please respond to the clarification below the line at the bottom and electronically sign. The CDI & [facility] Coding staff will review the response and follow-up if needed. Please note: Queries are made part of the Legal Health Record. If you have any questions, please contact the author of this message via ITS. Dr. Lucas Krishna Severe lethargy likely due to cellulitis of the left breast and Sepsis is documented in the H/P and progress note on 09/17/23 but is not noted in subsequent documentation starting on 09/18/23. Clarification is requested. 09/17 ID Consult: patient also noticed to have a significant cellulitis of the left breast in addition to the breast and groin fold cutaneous candidiasis. Patient antibiotic has been adjusted. History/Risk Factors: Atrial Fibrillation, Chest Pain, Heart Failure, GI Bleed, Hypertension, Rheumatoid Arthritis, Thyroid Disorder Clinical Indicators: 68-year-old present with generalized weakness and fatigue, chest pain, shortness of breath, noted that her left breast has cellulitis around the nipple area. She was started on IV Unasyn. Reports fatigue denied any fever. 09/15 VS: 127/64 81 16 99.5 95% RA 09/15 Labs WBC 18.8, Neutrophils 16.9 09/16 Lab C-Reactive Protein 15.9 BUN 39, CR 1.20 Treatment: Human Services Case Manager/Telemetry Rocephin 2 GM IVPB Once 09/16-09/16 Unasyn 3 GM IVPB Q 8 HRS 09/17-09/18 Then Q 6 HRS 09/18-09/19 Keflex 500 MG PO QID 09/19 -09/20 Please clarify if the Sepsis is: [ ] Sepsis due to cellulitis of the left breast is confirmed, remains under treatment [ ] Sepsis due to cellulitis of the left breast is confirmed, resolved [ + ] Sepsis due to cellulitis of the left breast has been ruled out [ ] Other condition, please specify [ ] Unable to determine (Template Last Revised: September 2020) MTDD
[2023-09-21] MEDS: LEVOTHYROXINE 50 MCG TAB PO SCH (06:35)
--- NOTE | 2023-09-21 11:32 | P.PN ---
Subjective Progress Note Date: 09/21/23 Principal diagnosis: Reason for follow-up is left mastitis breast fold and groin cutaneous candidiasis Patient is a 68-year-old female with a past medical history signif icant for hypertension atrial fibrillation heart failure rheumatoid arthritis hypothyroidism patient was brought into the hospital for evaluation of generalized weakness fatigue chest pain, patient was noticed to have some tenderness on abdominal manage yesterday CT was done which came back negative for any diverticulitis or abscess patient noticed to have significant redness to the left breast concerning for mastitis On today's evaluation that is 09/21/2023, Patient is afebrile patient is curre ntly on room air and denies having any shortness of breath, the patient denies any chest pain or cough, the patient denies any nausea vomiting did not have any abdominal pain and no diarrhea, the patient pain to the left breast has decreased in intensity. Patient white count is 9.5 creatinine 0.64 as of 09/17/2023 blood culture has been negative Objective - Vital Signs Vital signs: Vital Signs Temp 97.7 F 09/21/23 07:33 Pulse 58 L 09/21/23 08:35 Resp 18 09/21/23 07:33 BP 143/64 09/21/23 08:35 Pulse Ox 98 09/21/23 08:35 FiO2 Intake & Output 09/20/23 09/21/23 09/21/23 18:59 06:59 18:59 Intake Total 660 1080 Balance 660 1080 Intake: Oral 660 1080 Other: Voiding Method Toilet Toilet Toilet Bedside Commode # Voids 1 1 1 # Bowel Movements 1 - Exam GENERAL DESCRIPTION: An elderly female lying in bed in no distress RESPIRATORY SYSTEM: Unlabored breathing , decreased breath sounds at bases HEART: S1 S2 regular rate and rhythm , ABDOMEN: Soft , no tenderness Left breast swelling redness significant improved no drainage - Labs CBC & Chem 7: 09/17/23 07:28 09/17/23 07:28 Labs: Abnormal Lab Results - Last 24 Hours (Table) 09/20/23 Range/Units 07:14 Procalcitonin 0.10 H (0.02-0.09) ng/mL Assessment and Plan (1) Mastitis, left, acute Current Visit: Yes Status: Acute Code(s): N61.0 - MASTITIS WITHOUT ABSCESS SNOMED Code(s): 25249758 (2) Cutaneous candidiasis Current Visit: Yes Status: Acute Code(s): B37.2 - CANDIDIASIS OF SKIN AND NAIL SNOMED Code(s): 48895383 Plan: 1patient present hospitalized weakness not feeling well patient did have an episode of vomiting and the patient noticed to be tender in the left lower quadrant area with initial concern for possible diverticulitis however CT has been negative patient also noticed to have a significant cellulitis of the left breast in addition to the breast and groin fold cutaneous candidiasis, continue with the nystatin powder twice a day 2patient has shown clinical improvement as far as left breast cellulitis, the patient is currently on oral Keflex because no IV access prescription for oral Keflex have already been sent to the pharmacy Dictation was produced using [employer] dictation software. please excuse any grammatical, word or spelling errors. Time with Patient: Less than 30
--- NOTE | 2023-09-21 12:59 | P.PN ---
Subjective Progress Note Date: 09/21/23 CHIEF COMPLAINT: Left breast cellulitis HISTORY OF PRESENT ILLNESS: Patient's breast is showing improvement with decreased swelling and erythema. Patient does continue to report pain in that breast but it is less today. She did have episode of dizziness when she got up this morning. Afebrile. PHYSICAL EXAM: VITAL SIGNS: Reviewed GENERAL: Well-developed in no acute distress. HEENT: No sclera icterus. Extraocular movements grossly intact. Moist buccal mucosa. Head is atraumatic, normocephalic. Hears conversational speech. No nasal drainage. NECK: Supple without lymphadenopathy. CHEST: Non-labored respirations and equal bilateral excursions. CARDIOVASCULAR: Palpable 2+ radial pulses. ABDOMEN: Soft. Nondistended. Nontender. MUSCULOSKELETAL: No clubbing or cyanosis. NEUROLOGIC: No focal or lateralizing signs. Cranial nerves II through XII grossly intact. PSYCH: Appropriate affect. Alert and oriented to person, place and time. SKIN: Extensive left breast cellulitis. Erythema and swelling decreasing. No drainage noted. Tender with palpation ASSESSMENT: 1. Extensive left breast cellulitis. No evidence of abscess on ultrasound 2. History of left breast cancer with lumpectomy and radiation treatment PLAN: -Continue antibiotics per infectious disease -Continue supportive care. Continue to try to elevate breast -Continue pain management -No surgical intervention planned Physician Complaint Clerk note has been reviewed by physician. Signing provider agrees with the documented findings, assessment, and plan of care. Objective - Vital Signs Vital signs: Vital Signs Temp 97.4 F L 09/21/23 11:32 Pulse 58 L 09/21/23 11:32 Resp 18 09/21/23 11:32 BP 144/80 09/21/23 11:32 Pulse Ox 98 09/21/23 11:32 FiO2 Intake & Output 09/20/23 09/21/23 09/21/23 18:59 06:59 18:59 Intake Total 660 1080 Balance 660 1080 Intake: Oral 660 1080 Other: Voiding Method Toilet Toilet Toilet Bedside Commode # Voids 1 1 1 # Bowel Movements 1 - Labs CBC & Chem 7: 09/17/23 07:28 09/17/23 07:28
--- NOTE | 2023-09-21 14:39 | P.PN ---
Progress Note - Text Progress Note Date: 09/21/23 68-year-old female came in with complaints of extreme fatigue and malaise without any fevers which started all of a sudden yesterday evening. Patient was also complaining of chest pain which appeared to be noncardiac now complaining of headache severe 6/10 in the frontal area denies any blurry vision. Troponins were negative EKG did not show any acute ST-T wave changes but consistent with ventricular conduction delay with J-point elevation and Buice biphasic QRS complexes. Patient does have leukocytosis denies any symptoms of UTI or cough chest x-ray did not show any pneumonia patient denies any abdominal pain. Blood cultures were ordered results are pending patient was given a dose of Rocephin although urine is not that impressive for urinary tract infection, only showed trace leukocyte esterase but does have hyaline casts. TSH was ordered and D- dimer was ordered. 09/17/2023 Patient is evaluated today sitting up in the chair she continues to report extreme fatigue and malaise remains afebrile. Abdominal pelvis CT is showing no intra-abdominal process to account for infection. Her noted that her left breast is significantly cellulitic around the nipple area was outlined and discussed with infectious disease antibiotics been changed to IV Unasyn. She reports having a lumpectomy done at [facility] by Dr. Herr in the last year to the left breast. She completed radiation therapy also. Cardiology has signed off. Her CBC today is unremarkable her white count remains normal at 9.7, renal function has completely normalized with a BUN of 11 and a creatinine of 0.64. Her TSH is normal. Procalcitonin is mildly elevated at 0.56. Hemodynamically she is stable. September 18: Still having pain in the left breast. Patient has a skin marker. Redness is actually decreased. Patient does have a supportive bra from a coronary bypass. I have asked the to bring it in. Tolerating a diet. Has slight loose stool. Add Metamucil. Continue IV Unasyn. Discussed with patient and . Home dose of flecainide, Toprol-XL etc. to be resumed. September 19: Sitting up in a chair. She did try her Bra. But decided to take it off. Some improvement in pain and redness in the left breast. Continue IV Unasyn. at the bedside. Tolerating diet. September 20: Some improvement further in redness. Patient seen along with nurse. Eating well. Patient has a surgical bra from her coronary bypass is gone to bring that in. On IV Unasyn. Hopefully can be discharged home tomorrow. August: Patient this morning to the bathroom had an episode of some shortness of breath dizziness lightheadedness. Me and the tried to walk the patient in the hallway. Getting a bit short of breath. Checks x-ray and CT angio to rule out PE ordered. Discussed with patient . Left breast symptoms improving. Switch to the oral antibiotic per ID. No lower extremity swelling. On telemetry patient's heart rate remained in the 50s. Active Medications Acetaminophen (Acetaminophen Tab 325 Mg Tab) 325 mg PO Q6HR PRN PRN Reason: Fever and/ or Pain Last Admin: 09/21/23 10:28 Dose: 325 mg Hydrocodone Bitart/Acetaminophen (Hydrocodone/Apap 5-325mg 1 Each Tab) 1 each PO Q4HR PRN PRN Reason: Pain Last Admin: 09/21/23 04:29 Dose: 1 each Aspirin (Aspirin 81 Mg) 81 mg PO DAILY [facility] Last Admin: 09/21/23 10:15 Dose: 81 mg Atorvastatin Calcium (Atorvastatin 20 Mg Tab) 20 mg PO DAILY [facility] Last Admin: 09/21/23 10:15 Dose: 20 mg Cephalexin (Cephalexin 500 Mg Cap) 500 mg PO QID [facility]; Protocol Last Admin: 09/21/23 13:02 Dose: 500 mg Flecainide Acetate (Flecainide 50 Mg Tab) [address] [facility] Last Admin: 09/20/23 22:49 Dose: 50 mg Flecainide Acetate (Flecainide 50 Mg Tab) 100 mg PO DAILY [facility] Last Admin: 09/21/23 10:15 Dose: 100 mg Letrozole (Letrozole 2.5 Mg Tab) 2.5 mg PO DAILY [facility] Last Admin: 09/21/23 10:15 Dose: 2.5 mg Levothyroxine Sodium (Levothyroxine 50 Mcg Tab) 50 mcg PO SuThFrSa@0630 [facility] Last Admin: 09/21/23 06:35 Dose: 50 mcg Levothyroxine Sodium (Levothyroxine 25 Mcg Tab) 25 mcg PO MoTuWe@0630 [facility] Last Admin: 09/20/23 06:31 Dose: 25 mcg Metoprolol Succinate (Metoprolol Succinate (Er) 50 Mg Tab.Er.24h) 50 mg PO BID [facility] Last Admin: 09/21/23 10:15 Dose: 50 mg Multivitamins (Multivitamins, Thera 1 Each Tab) 1 each PO DAILY [facility] Last Admin: 09/21/23 10:16 Dose: 1 each Nitroglycerin (Nitroglycerin Sl Tabs 0.4 Mg Tab) 0.4 mg SUBLINGUAL Q5M PRN PRN Reason: Chest Pain Nystatin (Nystatin 100,000 Unit/Gm Powd 15 Gm) 1 applic TOPICAL BID [facility]; Protocol Last Admin: 09/21/23 10:16 Dose: 1 applic Pantoprazole Sodium (Pantoprazole 40 Mg Tablet) 40 mg PO AC-BID [facility] Last Admin: 09/21/23 06:35 Dose: 40 mg Potassium Chloride (Potassium Chloride Er 20 Meq Tab.Er) 20 meq PO DAILY [facility] Last Admin: 09/21/23 10:15 Dose: 20 meq Psyllium Hydrophilic Mucilloid (Psyllium Husk 100% 6 Gm Packet) 6 gm PO BID [facility] Last Admin: 09/21/23 10:15 Dose: 6 gm Rivaroxaban (Rivaroxaban 20 Mg Tab) 20 mg PO HS [facility]; Protocol Last Admin: 09/20/23 20:05 Dose: 20 mg Sodium Chloride (Sodium Chloride 0.9% Flush 10 Ml Syringe) 10 ml IV BID [facility] Last Admin: 09/21/23 10:16 Dose: Not Given On examination: VITAL SIGNS: 97.4, 58, 18, 144 x 80, 98% room air GENERAL APPEARANCE: Sitting up in a chair. HEENT: Normal external appearance of nose and ear. Oral cavity normal EYES: Pupils equal. Conjunctiva normal. NECK: JVD not raised. Mass not palpable. RESPIRATORY: Respiratory effort normal. Lungs clear to auscultation. CARDIOVASCULAR: First and second sounds normal. No edema. ABDOMEN: Soft. Liver and spleen not palpable. No tenderness. No mass palpable. PSYCHIATRY: Alert and oriented x3. Mood and affect normal. CHEST wall: Patient reports improvement from yesterday. INVESTIGATIONS, reviewed in the clinical context: September 20: Procalcitonin 0.1 September 17: White count 9.7 hemoglobin 12.3 platelets 196 sodium 139 potassium 4.2 creatinine 0.64 February 24: Creatinine 1.2 CRP 15.9 Procalcitonin 0.56 Troponin I less than 0.012 Assessment and plan -Acute severe cellulitis of the left breast.: Improving . IV Unasyn. 3 g every 6-changed over to Keflex on September 20. -Episodes of dizziness lightheaded short of breath this morning.: New diagnosis Checks x-ray CT scan rule out PE ordered -Acute renal injury, probably combination of ATN and prerenal.: Better Received IV fluids -Chest pain secondary to left breast cellulitis. Noncardiac: Improving -Paroxysmal atrial fibrillation presently sinus rhythm rate controlled Xarelto. Flecainide Toprol-XL -Essential hypertension Toprol-XL -Sleep apnea -Hypothyroidism: Continue Synthroid Discussed with patient . Await results of chest x-ray and CT chest to rule out PE. Note that patient is on Xarelto.
--- NOTE | 2023-09-21 17:58 | XR ---
EXAMINATION TYPE: XR chest 2V DATE OF EXAM: 09/21/2023 COMPARISON: None INDICATION: Short of breath TECHNIQUE: Frontal and lateral views of the chest are obtained. FINDINGS: The heart size is normal. The pulmonary vasculature is normal. The lungs are clear. Sternotomy wires are present from prior cardiac valve surgery. IMPRESSION: 1. No acute pulmonary process.
--- NOTE | 2023-09-21 22:05 | CT ---
CTA CHEST EXAMINATION TYPE: CT angio chest DATE OF EXAM: 09/21/2023 INDICATION: sob CT DLP: 743.8 mGycm, Automated exposure control for dose reduction was used. CONTRAST: Patient injected with 100 mL of Isovue 300. COMPARISON: 11/20/2017 TECHNIQUE: CT of the chest is performed on a spiral scan at 2 mm thick sections. Study is performed with intravenous contrast timed for evaluation for pulmonary embolism. This will limit additional po rtions of the evaluation. 3-D MIP images reconstructed by the technologist are reviewed on the compu ter in the coronal and sagittal planes. FINDINGS: No persistent filling defects are evident to suggest an acute pulmonary embolism. No mediastinal or hilar adenopathy enlarged by CT criteria is evident. There is a 0.9 cm lymph node adjacent to the aortic arch. Smaller pretracheal lymph nodes and right hilar adenopathy may be presen t. The ascending aorta diameter at the level of the main pulmonary artery is 3.0 cm. The main pulmonary artery diameter at the bifurcation is 2.8 cm. Lung windows are clear. Limited CT sections were through the upper abdomen. Upper abdomen appears unremarkable. IMPRESSION: 1. No acute pulmonary embolism. 2. No acute pulmonary process.
[2023-09-22 11:35] VITALS: BP 145/62; PULSE 59; RESP 20; TEMP 98
[2023-09-22 12:53] VITALS: BMI 43.0
--- NOTE | 2023-09-22 14:18 | P.PN ---
Subjective Progress Note Date: 09/22/23 CHIEF COMPLAINT: Left breast cellulitis HISTORY OF PRESENT ILLNESS: Patient's left breast cellulitis is improving. She reports decreased pain. Decreased swelling and erythema. Afebrile. PHYSICAL EXAM: VITAL SIGNS: Reviewed GENERAL: Well-developed in no acute distress. HEENT: No sclera icterus. Extraocular movements grossly intact. Moist buccal mucosa. Head is atraumatic, normocephalic. Hears conversational speech. No nasal drainage. NECK: Supple without lymphadenopathy. CHEST: Non-labored respirations and equal bilateral excursions. CARDIOVASCULAR: Palpable 2+ radial pulses. ABDOMEN: Soft. Nondistended. Nontender. MUSCULOSKELETAL: No clubbing or cyanosis. NEUROLOGIC: No focal or lateralizing signs. Cranial nerves II through XII grossly intact. PSYCH: Appropriate affect. Alert and oriented to person, place and time. SKIN: Extensive left breast cellulitis. Erythema and swelling decreasing. No drainage noted. Tender with palpation ASSESSMENT: 1. Extensive left breast cellulitis. No evidence of abscess on ultrasound. Showing improvement. 2. History of left breast cancer with lumpectomy and radiation treatment PLAN: -Continue antibiotics per infectious disease -Continue supportive care. Continue to try to elevate breast -Continue pain management -No surgical intervention planned -Patient can be discharged from surgical standpoint when cleared medically Physician [employer] note has been reviewed by physician. Signing provider agrees with the documented findings, assessment, and plan of care. Objective - Vital Signs Vital signs: Vital Signs Temp 98 F 09/22/23 11:15 Pulse 59 L 09/22/23 11:15 Resp 20 09/22/23 11:15 BP 145/62 09/22/23 11:15 Pulse Ox 96 09/22/23 11:15 FiO2 Intake & Output 09/21/23 09/22/23 09/22/23 18:59 06:59 18:59 Intake Total 1110 720 Balance 1110 720 Weight 113.852 kg Intake: IV 30 Invasive Line 3 30 Oral 1080 720 Other: Voiding Method Toilet Toilet # Voids 1 1 # Bowel Movements 1 - Labs CBC & Chem 7: 09/17/23 07:28 09/17/23 07:28 Labs: Microbiology - Last 24 Hours (Table) 09/16/23 00:35 Blood Culture - Final Blood
--- NOTE | 2023-09-22 15:03 | P.PN ---
Subjective Progress Note Date: 09/22/23 Principal diagnosis: Reason for follow-up is left mastitis breast fold and groin cutaneous candidiasis Patient is a 68-year-old female with a past medical history signif icant for hypertension atrial fibrillation heart failure rheumatoid arthritis hypothyroidism patient was brought into the hospital for evaluation of generalized weakness fatigue chest pain, patient was noticed to have some tenderness on abdominal manage yesterday CT was done which came back negative for any diverticulitis or abscess patient noticed to have significant redness to the left breast concerning for mastitis On today's evaluation that is 09/22/2023,the patient denies any fever or any c hills, patient is breathing comfortably on room air, the patient denies chest pain shortness of breath and no significant cough, patient denies abdominal pain, no nausea vomiting or diarrhea. Left breast pain and discomfort has decreased in intensity. Patient did not have any new labs today blood culture negative Objective - Vital Signs Vital signs: Vital Signs Temp 98 F 09/22/23 11:15 Pulse 59 L 09/22/23 11:15 Resp 20 09/22/23 11:15 BP 145/62 09/22/23 11:15 Pulse Ox 96 09/22/23 11:15 FiO2 Intake & Output 09/21/23 09/22/23 09/22/23 18:59 06:59 18:59 Intake Total 1110 360 Balance 1110 360 Weight 113.852 kg Intake: IV 30 Invasive Line 3 30 Oral 1080 360 Other: Voiding Method Toilet Toilet # Voids 1 1 # Bowel Movements 1 - Exam GENERAL DESCRIPTION: An elderly female lying in bed in no distress RESPIRATORY SYSTEM: Unlabored breathing , decreased breath sounds at bases HEART: S1 S2 regular rate and rhythm , ABDOMEN: Soft , no tenderness - Labs CBC & Chem 7: 09/17/23 07:28 09/17/23 07:28 Labs: Microbiology - Last 24 Hours (Table) 09/16/23 00:35 Blood Culture - Final Blood Assessment and Plan (1) Mastitis, left, acute Current Visit: Yes Status: Acute Code(s): N61.0 - MASTITIS WITHOUT ABSCESS SNOMED Code(s): 41963394 (2) Cutaneous candidiasis Current Visit: Yes Status: Acute Code(s): B37.2 - CANDIDIASIS OF SKIN AND NAIL SNOMED Code(s): 89063744 Plan: 1patient present hospitalized weakness not feeling well patient did have an episode of vomiting and the patient noticed to be tender in the left lower quadrant area with initial concern for possible diverticulitis however CT has been negative patient also noticed to have a significant cellulitis of the left breast in addition to the breast and groin fold cutaneous candidiasis, continue with the nystatin powder twice a day 2patient is slowly clinically improving as far as left breast cellulitis, the patient to continue with oral Keflex and plan is to finish therapy with oral Keflex at the bedside questions answered Dictation was produced using [employer] dictation software. please excuse any grammatical, word or spelling errors. Time with Patient: Less than 30
--- NOTE | 2023-09-22 21:56 | P.DS ---
Providers Date of admission: 09/16/23 00:12 Expected date of discharge: 09/22/23 Attending physician: Lucas Krishna Consults: 09/16/23 00:10 Consult Physician Routine Consulting Provider: Zafar Marsh Consult Reason/Comments: chest pain Do you want consulting provider notified?: Yes 09/16/23 11:16 Consult Physician Routine Consulting Provider: Bhavya Luz Consult Reason/Comments: Possible sepsis no clear source, extreme lethargy Do you want consulting provider notified?: Yes 09/16/23 16:21 Consult Physician Routine Consulting Provider: Sunshine Morales Consult Reason/Comments: L breast red and inflamed, remote history of lumpectomy out of town Do you want consulting provider notified?: Yes 09/19/23 06:15 Consult Physician Routine Consulting Provider: Bhavya Luz Consult Reason/Comments: cellulitis antibiotic coverage Do you want consulting provider notified?: Yes, Notify in am Primary care physician: [facility] Course: 68-year-old female came in with complaints of extreme fatigue and malaise without any fevers which started all of a sudden yesterday evening. Patient was also complaining of chest pain which appeared to be noncardiac now complaining of headache severe 6/10 in the frontal area denies any blurry vision. Troponins were negative EKG did not show any acute ST-T wave changes but consistent with ventricular conduction delay with J-point elevation and Buice biphasic QRS complexes. Patient does have leukocytosis denies any symptoms of UTI or cough chest x-ray did not show any pneumonia patient denies any abdominal pain. Blood cultures were ordered results are pending patient was given a dose of Rocephin although urine is not that impressive for urinary tract infection, only showed trace leukocyte esterase but does have hyaline casts. TSH was ordered and D- dimer was ordered. 09/17/2023 Patient is evaluated today sitting up in the chair she continues to report extreme fatigue and malaise remains afebrile. Abdominal pelvis CT is showing no intra-abdominal process to account for infection. Her noted that her left breast is significantly cellulitic around the nipple area was outlined and discussed with infectious disease antibiotics been changed to IV Unasyn. She reports having a lumpectomy done at [facility] by Dr. Herr in the last year to the left breast. She completed radiation therapy also. Cardiology has signed off. Her CBC today is unremarkable her white count remains normal at 9.7, renal function has completely normalized with a BUN of 11 and a creatinine of 0.64. Her TSH is normal. Procalcitonin is mildly elevated at 0.56. Hemodynamically she is stable. September 18: Still having pain in the left breast. Patient has a skin marker. Redness is actually decreased. Patient does have a supportive bra from a coronary bypass. I have asked the to bring it in. Tolerating a diet. Has slight loose stool. Add Metamucil. Continue IV Unasyn. Discussed with patient and . Home dose of flecainide, Toprol-XL etc. to be resumed. September 19: Sitting up in a chair. She did try her Bra. But decided to take it off. Some improvement in pain and redness in the left breast. Continue IV Unasyn. at the bedside. Tolerating diet. September 20: Some improvement further in redness. Patient seen along with nurse. Eating well. Patient has a surgical bra from her coronary bypass is gone to bring that in. On IV Unasyn. Hopefully can be discharged home tomorrow. August: Patient this morning to the bathroom had an episode of some shortness of breath dizziness lightheadedness. Me and the tried to walk the patient in the hallway. Getting a bit short of breath. Checks x-ray and CT angio to rule out PE ordered. Discussed with patient . Left breast symptoms improving. Switch to the oral antibiotic per ID. No lower extremity swelling. On telemetry patient's heart rate remained in the 50s. September 21: Doing much better. CT chest x-ray both unremarkable. No PE. Continue with anticoagulation from before. Left breast discomfort much better. Patient completed course of Keflex for 10 days. Follow-up with ID. Discussed with patient . Lasix discontinued. Fluid restriction. Discussion and discharge planning more than 35 minutes On examination: VITAL SIGNS: 98, 59, 20, 145 x 72, 96% room air GENERAL APPEARANCE: Sitting up in a chair. HEENT: Normal external appearance of nose and ear. Oral cavity normal EYES: Pupils equal. Conjunctiva normal. NECK: JVD not raised. Mass not palpable. RESPIRATORY: Respiratory effort normal. Lungs clear to auscultation. CARDIOVASCULAR: First and second sounds normal. No edema. ABDOMEN: Soft. Liver and spleen not palpable. No tenderness. No mass palpable. PSYCHIATRY: Alert and oriented x3. Mood and affect normal. CHEST wall: Patient reports improvement INVESTIGATIONS, reviewed in the clinical context: Chest CTA: Negative for PE September 20: Procalcitonin 0.1 September 17: White count 9.7 hemoglobin 12.3 platelets 196 sodium 139 potassium 4.2 creatinine 0.64 September 16: Creatinine 1.2 CRP 15.9 Procalcitonin 0.56 Troponin I less than 0.012 Assessment and plan -Acute severe cellulitis of the left breast.: Improved . IV Unasyn. 3 g every 6-changed over to Keflex on September 20. Keflex 100 mg 4 times daily for 10 days -Episodes of dizziness lightheaded short of breath this morning.: Resolved PE ruled out -Acute renal injury, probably combination of ATN and prerenal.: Better Received IV fluids -Chest pain secondary to left breast cellulitis. Noncardiac: Improving -Paroxysmal atrial fibrillation presently sinus rhythm rate controlled Xarelto. Flecainide Toprol-XL -Essential hypertension Toprol-XL -Sleep apnea -Hypothyroidism: Continue Synthroid Disposition: Home Plan - Discharge Summary Discharge Rx Participant: No New Discharge Prescriptions: New Nystatin 100,000 Unit/gm Powd [Mycostatin Powder] 1 applic TOPICAL BID #30 gm Cephalexin [Keflex] 500 mg PO Q6HR 10 Days #40 cap Psyllium Husk 100% [Metamucil Packet] 6 gm PO BID packet Acetaminophen Tab [Tylenol] 325 mg PO Q6HR PRN tab PRN Reason: Fever And/ Or Pain Continue Rivaroxaban [Xarelto] 20 mg PO DAILY@1600 lisinopriL [Zestril] 5 mg PO DAILY Multivit-Min/Iron/Folic/Lutein [Centrum Silver Women Tablet] 1 tab PO DAILY Aspirin [Adult Low Dose Aspirin EC] 81 mg PO DAILY Flecainide Acetate [Tambocor] 100 mg PO DAILY Metoprolol Succinate (ER) [Toprol XL] 50 mg PO BID Vitamin E (Dl,Tocopheryl Acet) [Vitamin E (400 Iu = 180 mg)] 400 unit PO DAILY Rosuvastatin [Crestor] 10 mg PO DAILY Levothyroxine Sodium [Synthroid] 50 mcg PO SUTHFRSA Levothyroxine Sodium [Synthroid] 25 mcg PO MOTUWE Letrozole [Femara] 2.5 mg PO DAILY Flecainide Acetate [Tambocor] 50 mg PO HS Pantoprazole [Protonix] 40 mg PO DAILY Discontinued Furosemide [Lasix] 40 mg PO BID #0 Potassium Chloride [Klor-Con 20] 20 meq PO BID #0 No Action Ag1 1 dose PO DAILY Collagen(Unknown) 1 cap PO DAILY Discharge Medication List Rivaroxaban [Xarelto] 20 mg PO DAILY@1600 02/16/15 [History] Aspirin [Adult Low Dose Aspirin EC] 81 mg PO DAILY 09/11/20 [History] Multivit-Min/Iron/Folic/Lutein [Centrum Silver Women Tablet] 1 tab PO DAILY 09/11/20 [History] lisinopriL [Zestril] 5 mg PO DAILY 09/11/20 [History] Ag1 1 dose PO DAILY 09/16/23 [History] Collagen(Unknown) 1 cap PO DAILY 09/16/23 [History] Flecainide Acetate [Tambocor] 50 mg PO HS 09/16/23 [History] Flecainide Acetate [Tambocor] 100 mg PO DAILY 09/16/23 [History] Letrozole [Femara] 2.5 mg PO DAILY 09/16/23 [History] Levothyroxine Sodium [Synthroid] 25 mcg PO MOTUWE 09/16/23 [History] Levothyroxine Sodium [Synthroid] 50 mcg PO SUTHFRSA 09/16/23 [History] Metoprolol Succinate (ER) [Toprol XL] 50 mg PO BID 09/16/23 [History] Pantoprazole [Protonix] 40 mg PO DAILY 09/16/23 [History] Rosuvastatin [Crestor] 10 mg PO DAILY 09/16/23 [History] Vitamin E (Dl,Tocopheryl Acet) [Vitamin E (400 Iu = 180 mg)] 400 unit PO DAILY 09/16/23 [History] Cephalexin [Keflex] 500 mg PO Q6HR 10 Days #40 cap 09/20/23 [Rx] Nystatin 100,000 Unit/gm Powd [Mycostatin Powder] 1 applic TOPICAL BID #30 gm 09/20/23 [Rx] Acetaminophen Tab [Tylenol] 325 mg PO Q6HR PRN tab 09/22/23 [Rx] Psyllium Husk 100% [Metamucil Packet] 6 gm PO BID packet 09/22/23 [Rx] Follow up Appointment(s)/Referral(s): Jewel Santiago MD [Primary Care Provider] - 1-2 days (please call office when open to make follow up appointment) Bhavya Luz MD [STAFF PHYSICIAN] - 1 Week (please call office when open to make follow up appointment) Patient Instructions/Handouts: Fluid Restriction (DC) Activity/Diet/Wound Care/Special Instructions: fluid restrict 1800 cc/day Discharge Disposition: HOME SELF-CARE
== END 2023-09-22 15:38 | disposition home or self-care (01) | DRG 600 ==
LOC: EC 20:18 → 6NMEDSUR 09-16 00:12 → 3SCARD 09-16 10:44
PROVIDERS: ADMIT Hospitalist; ATTEND Hospitalist
PROC: 05HB33Z Insertion of Infusion Device into Right Basilic Vein, Percutaneous Approach (ICD-10-PCS; principal; 2023-09-19 10:15)
DX: N61.0 Mastitis without abscess (principal); N17.0 Acute kidney failure with tubular necrosis; Z68.41 Body mass index [BMI] 40.0-44.9, adult; I11.0 Hypertensive heart disease with heart failure; I50.9 Heart failure, unspecified; D50.0 Iron deficiency anemia secondary to blood loss (chronic); E03.9 Hypothyroidism, unspecified; B37.2 Candidiasis of skin and nail; I48.0 Paroxysmal atrial fibrillation; M06.9 Rheumatoid arthritis, unspecified; E66.01 Morbid (severe) obesity due to excess calories; K76.9 Liver disease, unspecified; Z95.2 Presence of prosthetic heart valve; G47.30 Sleep apnea, unspecified; E86.0 Dehydration; I45.10 Unspecified right bundle-branch block; R07.89 Other chest pain; Z79.82 Long term (current) use of aspirin; Z79.811 Long term (current) use of aromatase inhibitors; Z79.890 Hormone replacement therapy; Z79.01 Long term (current) use of anticoagulants; Z79.899 Other long term (current) drug therapy; Z85.3 Personal history of malignant neoplasm of breast; Z92.3 Personal history of irradiation; Z95.1 Presence of aortocoronary bypass graft; Z96.651 Presence of right artificial knee joint; Z86.14 Personal history of Methicillin resistant Staphylococcus aureus infection; Z71.3 Dietary counseling and surveillance
CPT/HCPCS: 36410; 36415; 36600; 70450; 71046; 71275; 74177; 76937; 80053; 80061; 81001; 82043; 82570; 82805; 83036; 83735; 83880; 84145; 84443; 84484; 85025; 85027; 85379; 85610; 85652; 85730; 86140; 87040; 87636; 93005; 96365; 96367; 96375; 99285

== ENCOUNTER 2024-08-03 11:07 | Inpatient (IN) | payer MEDICARE ==
[2024-08-03 11:49] LABS: Basophils # (A) 0.1 k/uL (0-0.2); Basophils % (A) 1 %; Eosinophils # (A) 0.2 k/uL (0-0.7); Eosinophils % (A) 2 %; HCT 30.4 % (34.0-46.0); Lymphocytes # (A) 1.6 k/uL (1.0-4.8); Lymphocytes % (A) 15 %; MCHC 32.8 g/dL (31.0-37.0); MCV 88.2 fL (80.0-100.0); Monocytes # (A) 0.6 k/uL (0-1.0); Monocytes % (A) 6 %; Neutrophils # (A) 8.1 k/uL (1.3-7.7); Neutrophils % (A) 75 %; Platelet Count 305 k/uL (150-450); RBC 3.45 m/uL (3.80-5.40); RDW 14.2 % (11.5-15.5); WBC 10.7 k/uL (3.8-10.6)
--- NOTE | 2024-08-03 11:55 | ED ---
General Adult HPI - General Chief complaint: Shortness of Breath Stated complaint: pnemonia-like symtoms Time Seen by Provider: 08/03/24 11:15 Source: patient, EMS, RN notes reviewed, old records reviewed Mode of arrival: EMS Limitations: no limitations - History of Present Illness Initial comments: This is a 6-year-old female who presents to the emergency department stating that she was originally diagnosed with pneumonia back in May was admitted to [facility] and sent home on antibiotics. Patient states she was readmitted to [facility] in June for pneumonia again. Patient states she recently saw her doctor and he thought she might still have pneumonia and he put her on another course of antibiotics. Patient comes in today complaining of difficulty breathing and shortness of breath. Patient states she also has the chills. Patient denies chest pain or palpitations. Patient Nu[place] any back pain. Patient denies any abdominal pain patient has nausea vomiting diarrhea. Patient states she does have a history of congestive heart failure. - Related Data Home Medications Medication Instructions Recorded Confirmed Rivaroxaban [Xarelto] 20 mg PO DAILY@1600 02/16/15 09/16/23 Aspirin [Adult Low Dose Aspirin EC] 81 mg PO DAILY 09/11/20 09/16/23 Multivit-Min/Iron/Folic/Lutein 1 tab PO DAILY 09/11/20 09/16/23 [Centrum Silver Women Tablet] lisinopriL [Zestril] 5 mg PO DAILY 09/11/20 09/16/23 Ag1 1 dose PO DAILY 09/16/23 09/16/23 Collagen(Unknown) 1 cap PO DAILY 09/16/23 09/16/23 Flecainide Acetate [Tambocor] 50 mg PO HS 09/16/23 09/16/23 Flecainide Acetate [Tambocor] 100 mg PO DAILY 09/16/23 09/16/23 Letrozole [Femara] 2.5 mg PO DAILY 09/16/23 09/16/23 Levothyroxine Sodium [Synthroid] 25 mcg PO MOTUWE 09/16/23 09/18/23 Levothyroxine Sodium [Synthroid] 50 mcg PO SUTHFRSA 09/16/23 09/18/23 Metoprolol Succinate (ER) [Toprol 50 mg PO BID 09/16/23 09/16/23 XL] Pantoprazole [Protonix] 40 mg PO DAILY 09/16/23 09/16/23 Rosuvastatin [Crestor] 10 mg PO DAILY 09/16/23 09/16/23 Vitamin E (Dl,Tocopheryl Acet) 400 unit PO DAILY 09/16/23 09/16/23 [Vitamin E (400 Iu = 180 mg)] Previous Rx's Medication Instructions Recorded Cephalexin [Keflex] 500 mg PO Q6HR 10 Days #40 cap 09/20/23 Nystatin 100,000 Unit/gm Powd 1 applic TOPICAL BID #30 gm 09/20/23 [Mycostatin Powder] Acetaminophen Tab [Tylenol] 325 mg PO Q6HR PRN tab 09/22/23 Psyllium Husk 100% [Metamucil 6 gm PO BID packet 09/22/23 Packet] Allergies Allergy/AdvReac Type Severity Reaction Status Date / Time No Known Allergies Allergy Verified 08/03/24 11:20 Review of Systems ROS Statement: Those systems with pertinent positive or pertinent negative responses have been documented in the HPI. ROS Other: All systems not noted in ROS Statement are negative. Past Medical History Past Medical History: Atrial Fibrillation, Chest Pain / Angina, Heart Failure, GI Bleed, Hypertension, Rheumatoid Arthritis (RA), Sleep Apnea/CPAP/BIPAP, Thyroid Disorder Additional Past Medical History / Comment(s): History of atrial fibrillation post-ablation and cardioversions, recent hospitalization for GI bleeds related to a antral ulcer, anemia secondary to GI bleed, vertigo, liver lesion probably a meningioma and the patient will be having an outpatient MRI at a later stage, not currently using CPAP History of Any Multi-Drug Resistant Organisms: MRSA Date of last positivie culture/infection: 06/23/05 MDRO Source:: lt arm Past Surgical History: Appendectomy, Section, Coronary Bypass/CABG, Heart Catheterization, Hysterectomy, Joint Replacement, Orthopedic Surgery, Tubal Ligation Additional Past Surgical History / Comment(s): 6 KNEE SURGERIES= 0NE LEFT KNEE ARTHROSCOPY, and 5 RT KNEE ARTHROSCOPIES THEN TOTAL RT KNEE DONE & THEN TOTAL REVISION TO RT KNEE , PLACIDO. ACHILLES TENDON SURGERY- HAS SCREWS IN PLACIDO. HEELS, EYE SURGERY A CHILD(STRABISMUS), DENTAL IMPLANT BOTTOM LT., COLONOSCOPY, right shoulder sx x2 05/23/18 left thorancentesis. Pacemaker placed Feb 2024 Past Anesthesia/Blood Transfusion Reactions: Previous Problems w/ Anesthesia, Family History of Problems w/ Anesthesia, Postoperative Nausea & Vomiting (PONV) Additional Past Anesthesia/Blood Transfusion Reaction / Comment(s): PT & HER MOTHER HAVE HX PONV Past Psychological History: No Psychological Hx Reported Smoking Status: Never smoker Past Alcohol Use History: Rare Past Drug Use History: None Reported - Past Family History Mother Family Medical History: Congestive Heart Failure (CHF), Diabetes Mellitus Additional Family Medical History / Comment(s): History of spinal stenosis, heavy smoker and IDDM. Mother at age 73yrs. Father Family Medical History: Diabetes Mellitus, Hypertension Additional Family Medical History / Comment(s): Heavy smoker, Father in his late 60's or early 70's. General Exam - General Exam Comments Initial Comments: GENERAL: Patient is well-developed and well-nourished. Patient is nontoxic and well- hydrated and is in mild distress. ENT: Neck is soft and supple. No significant lymphadenopathy is noted. Oropharynx is clear. Moist mucous membranes. Neck has full range of motion without eliciting any pain. EYES: The sclera were anicteric and conjunctiva were pink and moist. Extraocular movements were intact and pupils were equal round and reactive to light. Eyelids were unremarkable. PULMONARY: Unlabored respirations. Good breath sounds bilaterally. No audible rales rhonchi or wheezing was noted. CARDIOVASCULAR: There is a regular rate and rhythm without any murmurs gallops or rubs. ABDOMEN: Soft and nontender with normal bowel sounds. SKIN: Skin is clear with no lesions or rashes and otherwise unremarkable. NEUROLOGIC: Patient is alert and oriented x3. Cranial nerves II through XII are grossly intact. Motor and sensory are also intact. Normal speech, volume and content. Symmetrical smile. MUSCULOSKELETAL: Normal extremities with adequate strength and full range of motion. No lower extremity swelling or edema. No calf tenderness. LYMPHATICS: No significant lymphadenopathy is noted PSYCHIATRIC: Normal psychiatric evaluation. Limitations: no limitations Course Vital Signs 08/03/24 08/03/24 08/03/24 11:12 11:20 12:25 Temperature 98.2 F Pulse Rate 84 79 Respiratory 30 H 24 24 Rate Blood Pressure 134/65 138/56 O2 Sat by Pulse 96 94 L Oximetry 08/03/24 14:17 Temperature Pulse Rate 72 Respiratory 24 Rate Blood Pressure 131/63 O2 Sat by Pulse 98 Oximetry Medical Decision Making - Medical Decision Making EKG is interpreted by myself but EKG shows a sinus rhythm at 83 bpm IL was under 66 QRS 121 QT interval 4 4 QTc is 444. Patient's EKG shows a right bundle branch block Was pt. sent in by a medical professional or institution (RAMONA Mccall, [employer], urgent care, hospital, or usp...) When possible be specific @ -No Did you speak to anyone other than the patient for history (EMS, parent, family, police, friend...)? What history was obtained from this source @ -No Did you review nursing and triage notes (agree or disagree)? Why? @ -I reviewed and agree with nursing and triage notes Were old charts reviewed (outside hosp., previous admission, EMS record, old EKG, old radiological studies, urgent care reports/EKG's, usp records)? Report findings @ -No old charts were reviewed Differential Diagnosis? @ -Differential Dyspnea: Coronary syndrome, arrhythmia, tamponade, asthma, COPD, pulmonary embolism, pneumonia, pneumothorax, pulmonary effusion, anaphylaxis, diabetic ketoacidosis, flailed chest, pulmonary contusion, diaphragmatic rupture, anemia, neuromuscular, this is not meant to be an all-inclusive list. EKG interpreted by me (3pts min.). @ -As above X-rays interpreted by me (1pt min.). @ -Chest x-ray shows no acute abnormality CT interpreted by me (1pt min.). @ -CT scan shows no PE but does show quite a few areas of groundglass appearance U/S interpreted by me (1pt. min.). @ -None done What testing was considered but not performed or refused? (CT, X-rays, U/S, labs)? Why? @ -None What meds were considered but not given or refused? Why? @ -None Did you discuss the management of the patient with other professionals (professionals i.e. RAMONA Mccall, [employer], lab, RT, psych nurse, social work coordinator, machine captain, teacher, home school liaison officer, case manager specialist)? Give summary @ -I spoke with Dr. Krishna he agrees to admit the patient admit the patient wrote admitting orders. I consulted pulmonology. Was smoking cessation discussed for >3mins.? @ -No Was critical care preformed (if so, how long)? @ -No Were there social determinants of health that impacted care today? How? (Homelessness, low income, unemployed, alcoholism, drug addiction, transportation, low edu. Level, literacy, decrease access to med. care, assisted, re hab)? @ -No Was there de-escalation of care discussed even if they declined (Discuss DNR or withdrawal of care, Hospice)? DNR status @ -No What co-morbidities impacted this encounter? (DM, HTN, Smoking, COPD, CAD, Cancer, CVA, ARF, Chemo, Hep., AIDS, mental health diagnosis, sleep apnea, morbid obesity)? @ -None Was patient admitted / discharged? Hospital course, mention meds given and route, prescriptions, significant lab abnormalities, going to OR and other pertinent info. @ -Patient has a groundglass appearance on CAT scan of the lung. Patient will be started on antibiotics and pulmonary will be consulted Undiagnosed new problem with uncertain prognosis? @ -No Drug Therapy requiring intensive monitoring for toxicity (Heparin, Nitro, Insulin, Cardizem)? @ -No Were any procedures done? @ -No Diagnosis/symptom? @ -Pneumonia Acute, or Chronic, or Acute on Chronic? @ -Acute Uncomplicated (without systemic symptoms) or Complicated (systemic symptoms)? @ -Complicate Side effects of treatment? @ -No Exacerbation, Progression, or Severe Exacerbation? @ -No Poses a threat to life or bodily function? How? (Chest pain, [place], ND, pneumonia, PE, COPD, DKA, ARF, appy, cholecystitis, CVA, Diverticulitis, Homicidal, Suicidal, threat to staff... and all critical care pts) @ -Yes this can lead to hypoxia and sepsis and endorgan dysfunction - Lab Data Result diagrams: 08/03/24 11:40 08/03/24 11:40 Lab Results 08/03/24 08/03/24 08/03/24 Range/Units 11:40 11:40 11:40 WBC 10.7 H (3.8-10.6) k/uL RBC 3.45 L (3.80-5.40) m/uL Hgb 10.0 L (11.4-16.0) gm/dL Hct 30.4 L (34.0-46.0) % MCV 88.2 (80.0-100.0) fL MCH 29.0 (25.0-35.0) pg MCHC 32.8 (31.0-37.0) g/dL RDW 14.2 (11.5-15.5) % Plt Count 305 (150-450) k/uL MPV 8.0 Neutrophils % 75 % Lymphocytes % 15 % Monocytes % 6 % Eosinophils % 2 % Basophils % 1 % Neutrophils # 8.1 H (1.3-7.7) k/uL Lymphocytes # 1.6 (1.0-4.8) k/uL Monocytes # 0.6 (0-1.0) k/uL Eosinophils # 0.2 (0-0.7) k/uL Basophils # 0.1 (0-0.2) k/uL PT 11.7 (10.0-12.5) sec INR 1.1 (<1.2) APTT 24.6 (22.0-30.0) sec D-Dimer 0.79 H (<0.60) mg/L FEU Sodium 138 (137-145) mmol/L Potassium 4.2 (3.5-5.1) mmol/L Chloride 102 (98-107) mmol/L Carbon Dioxide 26 (22-30) mmol/L Anion Gap 10 mmol/L BUN 13 (7-17) mg/dL Creatinine 0.64 (0.52-1.04) mg/dL Est GFR (CKD-EPI)AfAm >90 (>60 ml/min/1.73 sqM) Est GFR (CKD-EPI)NonAf >90 (>60 ml/min/1.73 sqM) Glucose 115 H (74-99) mg/dL Plasma Lactic Acid Naveed (0.7-2.0) mmol/L Calcium 9.0 (8.4-10.2) mg/dL Magnesium 1.7 (1.6-2.3) mg/dL Total Bilirubin 0.4 (0.2-1.3) mg/dL AST 29 (14-36) U/L ALT 21 (4-34) U/L Alkaline Phosphatase 106 (38-126) U/L Troponin I (0.000-0.034) ng/mL NT-Pro-B Natriuret Pep 295 pg/mL Total Protein 8.5 H (6.3-8.2) g/dL Albumin 4.0 (3.5-5.0) g/dL Influenza Type A (PCR) (Not Detectd) Influenza Type B (PCR) (Not Detectd) RSV (PCR) (Not Detectd) SARS-CoV-2 (PCR) (Not Detectd) 08/03/24 08/03/24 08/03/24 Range/Units 11:40 11:40 11:40 WBC (3.8-10.6) k/uL RBC (3.80-5.40) m/uL Hgb (11.4-16.0) gm/dL Hct (34.0-46.0) % MCV (80.0-100.0) fL MCH (25.0-35.0) pg MCHC (31.0-37.0) g/dL RDW (11.5-15.5) % Plt Count (150-450) k/uL MPV Neutrophils % % Lymphocytes % % Monocytes % % Eosinophils % % Basophils % % Neutrophils # (1.3-7.7) k/uL Lymphocytes # (1.0-4.8) k/uL Monocytes # (0-1.0) k/uL Eosinophils # (0-0.7) k/uL Basophils # (0-0.2) k/uL PT (10.0-12.5) sec INR (<1.2) APTT (22.0-30.0) sec D-Dimer (<0.60) mg/L FEU Sodium (137-145) mmol/L Potassium (3.5-5.1) mmol/L Chloride (98-107) mmol/L Carbon Dioxide (22-30) mmol/L Anion Gap mmol/L BUN (7-17) mg/dL Creatinine (0.52-1.04) mg/dL Est GFR (CKD-EPI)AfAm (>60 ml/min/1.73 sqM) Est GFR (CKD-EPI)NonAf (>60 ml/min/1.73 sqM) Glucose (74-99) mg/dL Plasma Lactic Acid Naveed 1.9 (0.7-2.0) mmol/L Calcium (8.4-10.2) mg/dL Magnesium (1.6-2.3) mg/dL Total Bilirubin (0.2-1.3) mg/dL AST (14-36) U/L ALT (4-34) U/L Alkaline Phosphatase (38-126) U/L Troponin I <0.012 (0.000-0.034) ng/mL NT-Pro-B Natriuret Pep pg/mL Total Protein (6.3-8.2) g/dL Albumin (3.5-5.0) g/dL Influenza Type A (PCR) Not Detected (Not Detectd) Influenza Type B (PCR) Not Detected (Not Detectd) RSV (PCR) Not Detected (Not Detectd) SARS-CoV-2 (PCR) Not Detected (Not Detectd) Disposition Clinical Impression: Pneumonia Disposition: ADMITTED IP TO THIS HOSP Referrals: Jewel Santiago MD [Primary Care Provider] - 1-2 days Time of Disposition: 14:38
[2024-08-03 11:59] LABS: ALT 21 U/L (4-34); AST 29 U/L (14-36); African American GFR (CKD) >90 (>60 ml/min/1.73 sqM); Alkaline Phosphatase 106 U/L (38-126); Anion Gap 10 mmol/L; Blood Urea Nitrogen 13 mg/dL (7-17); Carbon Dioxide 26 mmol/L (22-30); Chloride 102 mmol/L (98-107); Glucose 115 mg/dL (74-99); Magnesium 1.7 mg/dL (1.6-2.3); Non-African American GFR(CKD) >90 (>60 ml/min/1.73 sqM); Potassium 4.2 mmol/L (3.5-5.1); Sodium 138 mmol/L (137-145); Total Bilirubin 0.4 mg/dL (0.2-1.3); Total Protein 8.5 g/dL (6.3-8.2)
[2024-08-03 12:08] LABS: INR 1.1 (<1.2); NT-Pro-B-Type Natriuretic Pept 295 pg/mL; Partial Thromboplastin Time 24.6 sec (22.0-30.0); Prothrombin Time 11.7 sec (10.0-12.5)
--- NOTE | 2024-08-03 12:14 | XR ---
EXAMINATION TYPE: XR chest 2V DATE OF EXAM: 08/03/2024 11:47 AM COMPARISON: 09/21/2023 CLINICAL INDICATION: Female, 69 years old with history of difficulty breathing, TECHNIQUE: XR chest 2V view(s) obtained. FINDINGS: The heart size is normal. The pulmonary vasculature is mildly prominent. No suspicious focal consolidation.. IMPRESSION: 1. Correlate for some mild volume overload. [facility], , 08/03/2024 12:11 PM
[2024-08-03 12:24] LABS: Influenza A Not Detected (Not Detectd); Influenza B Not Detected (Not Detectd); RSV Not Detected (Not Detectd)
[2024-08-03] MEDS: SODIUM CHLORIDE 0.9% 1,000 ML IV SCH (14:17)
--- NOTE | 2024-08-03 14:17 | CT ---
EXAMINATION TYPE: CT chest angio for PE DATE OF EXAM: 08/03/2024 2:06 PM COMPARISON: Chest radiograph from same day. Multiple CTs of the chest with most recent on 09/21/2023 CLINICAL INDICATION: Female, 69 years old with history of Elevated D-dimer, shortness of breath; SOB TECHNIQUE/CONTRAST: CTA scan of the thorax is performed with IV Contrast, patient injected with 70 mL of Isovue 370, MIP images are created and reviewed these are created on a separate workstation.. CT DLP: 892.1 mGycm, Automated exposure control for dose reduction was used. FINDINGS: Lungs/Pleura: No evidence of focal consolidation, pleural effusion or pneumothorax. Interlobular sept al thickening throughout the lungs. Scattered airspace opacities also present. Airway: Large airways are patent. Heart: The heart is mildly enlarged for size. Left base cardiac conduction device with its tip in the right ventricle and right atrium. Mitral valve repair changes.. Vasculature: There is no evidence for a filling defect within the pulmonary vasculature to suggest ac chaitanya pulmonary embolism. The pulmonary artery is of normal size. Mediastinum: Enlarged lymph nodes throughout the mediastinum including AP window 13 mm short axis rig ht perihilar andr 10 arm measuring 13 mm short axis. Musculoskeletal: No acute osseous abnormalities Soft Tissues/lymph nodes: Unremarkable. Lower neck: No significant findings. Upper Abdomen: Peripherally enhancing lesion in the anterior liver in the left hepatic lobe measuring up to 20 mm stable from prior on 09/16/2023 likely representing a benign hepatic hemangioma. IMPRESSION: 1. No evidence of pulmonary embolism. 2. Scattered airspace opacities of the lung groundglass appearance and airspace consolidation changes . 3.These lymph nodes which have increased in size from prior on 09/21/2023. Findings likely secondary t o #2. Short-term follow-up recommended to ensure resolution. 4. Mild cardiomegaly with some pulmonary vascular congestion correlate with serum BNP for a component of congestive heart failure. Follow up recommendations for incidental pulmonary nodules, if there are any, are per [employer] or [employer]. https://radiopaedia.org/articles/cgjxojwnwd-fqrxvym-grlfhrofj-cvygzv-[email or web address]?lang=us [facility], , 08/03/2024 2:15 PM
[2024-08-03] MEDS ORDERED: PNEUMONIA PROTOCOL UTILIZED 1 EACH MISC PO PRN (14:39)
[2024-08-03] MEDS: PIPERACILLIN-TAZOBACTAM 3.375 GM in SODIUM CHLORIDE 0.9% 100 ML IVPB STA (15:02)
[2024-08-03] MEDS: AZITHROMYCIN 500 MG in SODIUM CHLORIDE 0.9% 250 ML IVPB STA (17:41)
[2024-08-03] MEDS: FUROSEMIDE 40 MG TAB PO SCH (20:08)
[2024-08-03] MEDS: ATORVASTATIN 20 MG TAB PO SCH (20:08)
[2024-08-03] MEDS: METOPROLOL TARTRATE 25 MG TAB PO SCH (20:08)
[2024-08-03] MEDS: POTASSIUM CHLORIDE ER 20 MEQ TAB.ER PO SCH (20:08)
[2024-08-03] MEDS: RIVAROXABAN 20 MG TAB PO SCH (20:08)
[2024-08-04] MEDS: PIPERACILLIN-TAZOBACTAM 3.375 GM in SODIUM CHLORIDE 0.9% 100 ML IVPB SCH (00:04)
[2024-08-04] MEDS: LEVOTHYROXINE 25 MCG TAB PO SCH (06:30)
[2024-08-04] MEDS: MULTIVITAMINS, THERA 1 EACH TAB PO SCH (08:19)
[2024-08-04] MEDS: AZITHROMYCIN 500 MG in SODIUM CHLORIDE 0.9% 250 ML IVPB SCH (08:19)
[2024-08-04] MEDS: PANTOPRAZOLE 40 MG TABLET PO SCH (08:20)
[2024-08-04] MEDS: lisinopriL 5 MG TAB PO SCH (08:20)
[2024-08-04] MEDS: LETROZOLE 2.5 MG TAB PO SCH (08:20)
[2024-08-04] MEDS: ASPIRIN 81 MG PO SCH (08:20)
--- NOTE | 2024-08-04 10:22 | XR ---
EXAMINATION TYPE: XR chest 2V DATE OF EXAM: 08/04/2024 6:55 AM COMPARISON: 08/03/2024 CLINICAL INDICATION: Female, 69 years old with history of pneumonia, TECHNIQUE: XR chest 2V view(s) obtained. FINDINGS: The heart size is normal. The pulmonary vasculature is prominent. Mild diffuse increased lung markings are present, slightly increased from comparison. Pacemaker over lies left chest. Sternotomy wires from prior cardiac valve surgery is evident IMPRESSION: 1. Volume overload with mild pulmonary edema. Findings are worsening from comparison [facility], , 08/04/2024 10:20 AM
--- NOTE | 2024-08-04 16:39 | P.HPIM ---
History of Present Illness H&P Date: 08/04/24 Chief Complaint: Short of breath 69-year-old patient who follows with Dr. Jewel Santiago. Chronic medical conditions include rheumatoid arthritis after sleep apnea hypothyroid atrial fibrillation recent ablation GI bleed because of antral ulcer does not use CPAP. Coronary artery disease with previous bypass. June 07 patient underwent ablation by her safekeeping clerk. Procedure lasted for 2 and half hours. Patient was home for 2 days became short of breath. Went to [facility] was admitted there for 4 days for pneumonia. Was sent home. After 3 days again became short of breath [facility]. Patient went home. For about a week again patient started having creasing shortness of breath. Cough. Yellow- brown sputum. Some fever. Appetite is fair. Patient is accompanied by her and son in the hospital. Also having chills. Patient started on IV Zosyn in the ER. Having significant cough Review of systems: GEN.: Febrile, decreased appetite EYES: None HEENT: None NECK: None RESPIRATORY: [As above CARDIOVASCULAR: None GASTROINTESTINAL: None GENITOURINARY: None MUSCULOSKELETAL: None LYMPHATICS: None HEMATOLOGICAL: None PSYCHIATRY: None NEUROLOGICAL: None Social history: Non-smoker. Lives with her . On examination: VITAL SIGNS: 98.2, 84, 24, 134 x 65, 96% on 4 L GENERAL APPEARANCE: BMI 41.2, a bit tired, up in a chair HEENT: Normal external appearance of nose and ear. Oral cavity normal EYES: Pupils equal. Conjunctiva normal. NECK: JVD not raised. Mass not palpable. RESPIRATORY: Respiratory effort increased, few crackles. CARDIOVASCULAR: First and second sounds normal. No edema. ABDOMEN: Soft. Liver and spleen not palpable. No tenderness. No mass palpable. PSYCHIATRY: Alert and oriented x3. Mood and affect anxious NEUROLOGICAL: Cranial nerves grossly intact. Power sensation grossly intact. LYMPHATICS: No lymph node palpable in neck and axilla INVESTIGATIONS, reviewed in the clinical context: August 03: White count 10.7 hemoglobin 10 platelets 305 sodium 138 potassium 4.2 creatinine 0.6 Troponin I less than 0.012 proBNP 295 Influenza type A, type B, RSV, COVID-19: Not detected Chest x-ray film personally reviewed by me-scattered infiltrates Chest CTA: Negative PE. Scattered airspace opacities groundglass appearance and consolidative changes. Lymph node is increased in size from September 21, 2023. Mild cardiomegaly. EKG tracing personally reviewed by me-sinus rhythm. Some ST segment depression. Assessment and plan: -Recurrent pneumonia. Patient's had 3 hospitalizations since May 2024. Variable duration. Patient yet again presents with fever cough sputum production. Patient may need bronchoscopy to identify the organism. Will check immunodeficiency panel IV Zosyn for now -Sepsis with blood cultures growing gram-positive cocci in pairs and chains. As per pharmacy IV Zosyn -Paroxysmal atrial fibrillation. Patient had ablation done on June 07. Currently in sinus rhythm Lopressor 25 mg twice daily. Xarelto Amiodarone -Essential hypertension Toprol-XL -Obstructive sleep apnea Does not use CPAP -Hypothyroidism: Synthroid to continue -Morbid obesity BMI 41.2 Weight loss measures -GERD Protonix -Full code Care was discussed with patient and son at the bedside. Pulmonary consulted. Bronchoscopy to be considered. Given the complexity and severity of patient's condition expect the patient to be in the hospital at least for 2 overnights Past Medical History Past Medical History: Atrial Fibrillation, Chest Pain / Angina, Heart Failure, GI Bleed, Hypertension, Rheumatoid Arthritis (RA), Sleep Apnea/CPAP/BIPAP, Thyroid Disorder Additional Past Medical History / Comment(s): History of atrial fibrillation post-ablation and cardioversions, recent hospitalization for GI bleeds related to a antral ulcer, anemia secondary to GI bleed, vertigo, liver lesion probably a meningioma and the patient will be having an outpatient MRI at a later stage, not currently using CPAP History of Any Multi-Drug Resistant Organisms: MRSA Date of last positivie culture/infection: 06/23/05 MDRO Source:: lt arm Past Surgical History: Appendectomy, Section, Coronary Bypass/CABG, Heart Catheterization, Hysterectomy, Joint Replacement, Orthopedic Surgery, Tubal Ligation Additional Past Surgical History / Comment(s): 7 KNEE SURGERIES= 0NE LEFT KNEE ARTHROSCOPY, and 5 RT KNEE ARTHROSCOPIES THEN TOTAL RT KNEE DONE & THEN TOTAL REVISION TO RT KNEE , PLACIDO. ACHILLES TENDON SURGERY- HAS SCREWS IN PLACIDO. HEELS, EYE SURGERY A CHILD(STRABISMUS), DENTAL IMPLANT BOTTOM LT., COLONOSCOPY, right shoulder sx x2 05/23/18 left thorancentesis. Pacemaker placed Feb 2024 Past Anesthesia/Blood Transfusion Reactions: Previous Problems w/ Anesthesia, Family History of Problems w/ Anesthesia, Postoperative Nausea & Vomiting (PONV) Additional Past Anesthesia/Blood Transfusion Reaction / Comment(s): PT & HER MOTHER HAVE HX PONV Past Psychological History: No Psychological Hx Reported Additional Psychological History / Comment(s): Pt resides with her spouse. She is independent. She uses no assistive device. She drives. Smoking Status: Never smoker Past Alcohol Use History: Rare Past Drug Use History: None Reported - Past Family History Mother Family Medical History: Congestive Heart Failure (CHF), Diabetes Mellitus Additional Family Medical History / Comment(s): History of spinal stenosis, heavy smoker and IDDM. Mother at age 73yrs. Father Family Medical History: Diabetes Mellitus, Hypertension Additional Family Medical History / Comment(s): Heavy smoker, Father in his late 60's or early 70's. Medications and Allergies Home Medications Medication Instructions Recorded Confirmed Type Rivaroxaban [Xarelto] 20 mg PO DAILY@1600 02/16/15 08/03/24 History Aspirin [Adult Low Dose Aspirin EC] 81 mg PO DAILY 09/11/20 08/03/24 History Multivit-Min/Iron/Folic/Lutein 1 tab PO DAILY 09/11/20 08/03/24 History [Centrum Silver Women Tablet] lisinopriL [Zestril] 5 mg PO DAILY 09/11/20 08/03/24 History Letrozole [Femara] 2.5 mg PO DAILY 09/16/23 08/03/24 History Levothyroxine Sodium [Synthroid] 25 mcg PO MOTUWE 09/16/23 08/03/24 History Levothyroxine Sodium [Synthroid] 50 mcg PO SUTHFRSA 09/16/23 08/03/24 History Pantoprazole [Protonix] 40 mg PO DAILY 09/16/23 08/03/24 History Rosuvastatin [Crestor] 10 mg PO HS 09/16/23 08/03/24 History Amiodarone [Cordarone] 200 mg PO DAILY 08/03/24 08/03/24 History Clotrimazole/Betameth Cream 1 applic TOPICAL BID 08/03/24 08/03/24 History [Lotrisone] Furosemide [Lasix] 40 mg PO BID 08/03/24 08/03/24 History Metoprolol Tartrate [Lopressor] 25 mg PO BID 08/03/24 08/03/24 History Potassium Chloride ER [K-Dur 20] 20 meq PO BID 08/03/24 08/03/24 History traZODone HCL [Desyrel] 50 mg PO HS PRN 08/03/24 08/03/24 History Allergies Allergy/AdvReac Type Severity Reaction Status Date / Time No Known Allergies Allergy Verified 08/03/24 14:46 Physical Exam Vitals: Vital Signs Temp Pulse Pulse Resp BP BP Pulse Ox 08/04/24 07:32 98.1 F 78 16 130/72 99 08/04/24 01:19 98.1 F 73 18 118/77 98 08/03/24 19:04 97.8 F 80 18 129/76 97 08/03/24 17:15 97.9 F 71 17 126/73 99 08/03/24 15:29 98.4 F 74 20 116/95 96 08/03/24 14:17 72 24 131/63 98 08/03/24 12:25 79 24 138/56 94 L Intake and Output 08/03/24 08/04/24 08/04/24 22:59 06:59 14:59 Other: Voiding Method Toilet # Voids 1 2 Weight 108.862 kg Results CBC & Chem 7: 08/03/24 11:40 08/03/24 11:40 Labs: Abnormal Lab Results - Last 24 Hours (Table) 08/03/24 Range/Units 11:40 D-Dimer 0.79 H (<0.60) mg/L FEU Thrombosis Risk Factor Assmnt - Choose All That Apply Any of the Below Risk Factors Present?: Yes Each Factor Represents 1 point: Heart failure (<1month), Obesity (BMI >25), Serious lung disease incl. pneumonia (< 1month) Other Risk Factors: Yes Each Risk Factor Represents 2 Points: Age 61-74 years Other congenital or acquired thrombophilia - If yes, enter type in comment: No Thrombosis Risk Factor Assessment Total Risk Factor Score: 5 Thrombosis Risk Factor Assessment Level: High Risk
[2024-08-05] MEDS: LEVOTHYROXINE 25 MCG TAB PO SCH (05:59)
--- NOTE | 2024-08-05 11:58 | P.CRDCN ---
History of Present Illness Consult date: 08/05/24 History of present illness: History of Present Illness: The patient is a 69-year-old female the patient is a 69-year-old female who presents with symptoms of worsening dyspnea associated with cough. Cardiology consultation was requested because of her known cardiac history. The patient is followed by Dr. Lam. She underwent mitral valve repair in April 2028 for severe mitral regurgitation with modified Mauricio-Maze procedure. At that time she had a preserved systolic function with no evidence of obstructive CAD. She had a pacemaker implanted in February 2024 and on July 07 underwent ablation for atrial fibrillation at [facility]. Few days after her discharge she started complaining of dyspnea with cough, she was admitted to [facility] for treatment of pneumonia, after her discharge she had recurrence of her symptoms 2 days after and subsequently admitted to [facility] for 7 days with similar symptoms. After being discharged home her symptoms did not resolve and she continues to have significant dyspnea, cough. Her wheezing has resolved. She has low-grade temperature at home. She has rare palpitations but continues to be in sinus mechanism. She has no significant peripheral edema and no chest discomfort. She has symptoms of nausea and some vomiting but no recent GI bleeding. She has been anticoagulated at home. She has a history of hypertension and hyperlipidemia, she is nondiabetic. Medications:Her medication at home include Crestor, 10 mg daily, Xarelto 20 mg daily, Protonix, Synthroid, amiodarone 200 mg daily, letrozole, Zestril 5 mg daily, metoprolol tartrate 25 mg twice a day, furosemide 40 mg twice a day. Review of Systems: Respiratory: She has a history of recent cough, fever with productive sputum and wheezing. She is a non-smoker GI: [She has reecent nausea andr vomiting . No history of peptic ulcer disease. No recent GI bleed. : [No hematuria or dysuria.] Nervous System: [No stroke or seizure. Physical Examination: 69-year-old female, alert oriented no apparent distress, blood pressure 117/60, heart rate 100, temperature 98.7 Head: [Normocephalic.] Eyes: [Sclerae nonicteric. Neck: [Good carotid upstroke, no bruit, no jugular venous distention Lungs: No wheezes or rales are noted, scattered rhonchi. Heart: [Regular rate and rhythm, S1-S2, no S3, no rub.Systolic ejection murmur a t the base Abdomen: [Soft nontender, positive bowel sounds no organomegaly.Obese Extremities: [No edema, intact distal pulses. Labs: WBC 10.7, hemoglobin 10, potassium 4.2, BUN 13, creatinine 0.64, troponin less than 0.012, NT proBNP 295, procalcitonin 0.04. Chest x-ray with suggestion of volume overload EKG: Sinus mechanism with right bundle branch block and nonspecific ST-T wave changes Impression: 1. Recent with recurrent dyspnea and cough 2. Status post mitral valve repair with no evidence of mitral valve dysfunction 3. Status post atrial fibrillation ablation, maintaining sinus mechanism 4. Status post permanent pacemaker implantation Plan: 1. Continue present therapy 2. Obtain an echocardiogram with Doppler 3. No clinical evidence of CHF 4. Treatment of her lung status per pulmonary 5. Follow-up as an outpatient with primary radar engineer 6. Thank you for this consult we will follow with you1. Past Medical History Past Medical History: Atrial Fibrillation, Chest Pain / Angina, Heart Failure, GI Bleed, Hypertension, Rheumatoid Arthritis (RA), Sleep Apnea/CPAP/BIPAP, Thyroid Disorder Additional Past Medical History / Comment(s): History of atrial fibrillation post-ablation and cardioversions, recent hospitalization for GI bleeds related to a antral ulcer, anemia secondary to GI bleed, vertigo, liver lesion probably a meningioma and the patient will be having an outpatient MRI at a later stage, not currently using CPAP History of Any Multi-Drug Resistant Organisms: MRSA Date of last positivie culture/infection: 06/23/05 MDRO Source:: lt arm Past Surgical History: Appendectomy, Section, Coronary Bypass/CABG, Heart Catheterization, Hysterectomy, Joint Replacement, Orthopedic Surgery, Tubal Ligation Additional Past Surgical History / Comment(s): 7 KNEE SURGERIES= 0NE LEFT KNEE ARTHROSCOPY, and 5 RT KNEE ARTHROSCOPIES THEN TOTAL RT KNEE DONE & THEN TOTAL REVISION TO RT KNEE , PLACIDO. ACHILLES TENDON SURGERY- HAS SCREWS IN PLACIDO. HEELS, EYE SURGERY A CHILD(STRABISMUS), DENTAL IMPLANT BOTTOM LT., COLONOSCOPY, right shoulder sx x2 05/23/18 left thorancentesis. Pacemaker placed Feb 2024 Past Anesthesia/Blood Transfusion Reactions: Previous Problems w/ Anesthesia, Family History of Problems w/ Anesthesia, Postoperative Nausea & Vomiting (PONV) Additional Past Anesthesia/Blood Transfusion Reaction / Comment(s): PT & HER MOTHER HAVE HX PONV Past Psychological History: No Psychological Hx Reported Additional Psychological History / Comment(s): Pt resides with her spouse. She is independent. She uses no assistive device. She drives. Smoking Status: Never smoker Past Alcohol Use History: Rare Past Drug Use History: None Reported - Past Family History Mother Family Medical History: Congestive Heart Failure (CHF), Diabetes Mellitus Additional Family Medical History / Comment(s): History of spinal stenosis, heavy smoker and IDDM. Mother at age 73yrs. Father Family Medical History: Diabetes Mellitus, Hypertension Additional Family Medical History / Comment(s): Heavy smoker, Father in his late 60's or early 70's. Medications and Allergies Home Medications Medication Instructions Recorded Confirmed Type Rivaroxaban [Xarelto] 20 mg PO DAILY@1600 02/16/15 08/03/24 History Aspirin [Adult Low Dose Aspirin EC] 81 mg PO DAILY 09/11/20 08/03/24 History Multivit-Min/Iron/Folic/Lutein 1 tab PO DAILY 09/11/20 08/03/24 History [Centrum Silver Women Tablet] lisinopriL [Zestril] 5 mg PO DAILY 09/11/20 08/03/24 History Letrozole [Femara] 2.5 mg PO DAILY 09/16/23 08/03/24 History Levothyroxine Sodium [Synthroid] 25 mcg PO MOTUWE 09/16/23 08/03/24 History Levothyroxine Sodium [Synthroid] 50 mcg PO SUTHFRSA 09/16/23 08/03/24 History Pantoprazole [Protonix] 40 mg PO DAILY 09/16/23 08/03/24 History Rosuvastatin [Crestor] 10 mg PO HS 09/16/23 08/03/24 History Amiodarone [Cordarone] 200 mg PO DAILY 08/03/24 08/03/24 History Clotrimazole/Betameth Cream 1 applic TOPICAL BID 08/03/24 08/03/24 History [Lotrisone] Furosemide [Lasix] 40 mg PO BID 08/03/24 08/03/24 History Metoprolol Tartrate [Lopressor] 25 mg PO BID 08/03/24 08/03/24 History Potassium Chloride ER [K-Dur 20] 20 meq PO BID 08/03/24 08/03/24 History traZODone HCL [Desyrel] 50 mg PO HS PRN 08/03/24 08/03/24 History Allergies Allergy/AdvReac Type Severity Reaction Status Date / Time No Known Allergies Allergy Verified 08/03/24 14:46 Physical Exam Vitals: Vital Signs Temp Pulse Resp BP Pulse Ox 08/05/24 07:51 98.7 F 109 H 20 117/61 98 08/05/24 02:13 97.8 F 104 H 23 112/82 99 08/04/24 20:48 97.9 F 107 H 22 123/80 98 08/04/24 13:22 97.6 F 81 18 122/82 96 Intake and Output 08/04/24 08/05/24 08/05/24 22:59 06:59 14:59 Intake Total 2500 350 Balance 2500 350 Intake: Oral 2500 Other 350 Other: Voiding Method Toilet # Voids 5 Results 08/03/24 11:40 08/03/24 11:40 Current Medications Generic Name Dose Route Start Last Admin Trade Name Freq PRN Reason Stop Dose Admin Aspirin 81 mg 08/04/24 09:00 08/05/24 09:07 Aspirin 81 Mg PO 81 mg DAILY [facility] Administration Atorvastatin Calcium 20 mg 08/03/24 21:00 08/04/24 21:27 Atorvastatin 20 Mg Tab PO 20 mg HS [facility] Administration Furosemide 40 mg 08/03/24 21:00 08/05/24 09:07 Furosemide 40 Mg Tab PO 40 mg BID [facility] Administration Sodium Chloride 1,000 mls @ 130 mls/hr 08/03/24 13:00 08/05/24 02:36 Saline 0.9% IV Not Given .[id number] [facility] Piperacillin Sod/Tazobactam 100 mls @ 25 mls/hr 08/04/24 00:00 08/05/24 09:07 Sod 3.375 gm/ Sodium Chloride IVPB 08/08/24 00:00 25 mls/hr Q8HR [facility] Administration Protocol Letrozole 2.5 mg 08/04/24 09:00 08/05/24 09:07 Letrozole 2.5 Mg Tab PO 2.5 mg DAILY [facility] Administration Levothyroxine Sodium 25 mcg 08/05/24 06:30 08/05/24 05:59 Levothyroxine 25 Mcg Tab PO 25 mcg MOTUWE [facility] Administration Levothyroxine Sodium 50 mcg 08/04/24 06:30 08/04/24 06:30 Levothyroxine 25 Mcg Tab PO 50 mcg SUTHFRSA [facility] Administration Lisinopril 5 mg 08/04/24 09:00 08/05/24 09:07 Lisinopril 5 Mg Tab PO 5 mg DAILY [facility] Administration Metoprolol Tartrate 25 mg 08/03/24 21:00 08/05/24 09:07 Metoprolol Tartrate 25 Mg Tab PO 25 mg BID [facility] Administration Miscellaneous Information 1 each 08/03/24 14:39 Pneumonia Protocol Utilized 1 Each Misc PO ONCE PRN Per Protocol Multivitamins 1 each 08/04/24 09:00 08/05/24 09:07 Multivitamins, Thera 1 Each Tab PO 1 each DAILY [facility] Administration Pantoprazole Sodium 40 mg 08/04/24 09:00 08/05/24 09:07 Pantoprazole 40 Mg Tablet PO 40 mg DAILY [facility] Administration Potassium Chloride 20 meq 08/03/24 21:00 08/05/24 09:07 Potassium Chloride Er 20 Meq Tab.Er PO 20 meq BID [facility] Administration Rivaroxaban 20 mg 08/03/24 20:00 08/04/24 17:14 Rivaroxaban 20 Mg Tab PO 20 mg DAILY@1600 [facility] Administration Protocol Trazodone HCl 50 mg 08/03/24 18:36 Trazodone Hcl 50 Mg Tab PO HS PRN sleep Intake and Output 08/04/24 08/05/24 08/05/24 22:59 06:59 14:59 Intake Total 2500 350 Balance 2500 350 Intake: Oral 2500 Other 350 Other: Voiding Method Toilet # Voids 5 08/03/24 11:40 08/03/24 11:40
--- NOTE | 2024-08-05 13:52 | P.CNPUL ---
History of Present Illness Consult date: 08/05/24 Requesting physician: Lucas Krishna Reason for consult: dyspnea, abnormal CXR/CT Chief complaint: Shortness of breath, cough, congestion History of present illness: This is a 69-year-old female patient with a known history of mitral valve repair in 2018, breast cancer approximately 2 years ago, atrial fibrillation anticoagulated with Xarelto, congestive heart failure, hyperlipidemia, hypothyr oidism. She had a permanent pacemaker implanted in February 2024 and has had ongoing issues with severe tenderness at the left subclavian pacemaker site,. She had undergone an atrial fibrillation ablation back on July 07, 2024. She had complications with possible hematoma in the right groin. She was home for approximately 2 days and then went to [facility] and was hospitalized for 4 days for possible pneumonia. She was home again for 3-1/2 days then went to [facility] and was subsequently [place] [facility] [place] 7 days and treated for possible pneumonia. 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 She was home for 1 week and then presented here with continued complaints of shortness of breath cough and congestion. Chest x- ray reveals evidence of fluid volume overload. CT angiogram ruled out pulmonary embolism. There is scattered airspace opacities of the lung groundglass appearance and airspace consolidation changes. Mild cardiomegaly with some pulmonary vascular congestion. EKG reveals sinus rhythm. White count 10.7. Hemoglobin 10.0. Platelets 305. Sodium 138. Potassium 4.2. Bicarb 26. BUN 13. Creatinine 0.64. Glucose 115. Viral screen is negative. Procalcitonin is also negative at 0.04. She is seen today in consultation on the regular medical floor. She is currently sitting up in bed. Awake and alert in no acute distress. She is requiring 5 L of nasal cannula however her O2 saturations are 9899%. She has been afebrile. Slightly tachycardic. Blood culture is showing gram-positive cocci in pairs and chains. Streptococcus species. She has been initiated on Zosyn. Continued on oral diuretics. Home medications resumed. Remains on Xarelto. Review of Systems REVIEW OF SYSTEMS: CONSTITUTIONAL: Denies any recent significant weight loss or weight gain. EYES: Denies change in vision. EARS, NOSE, MOUTH, THROAT: Denies headaches, denies sore throat. CARDIOVASCULAR: Denies chest pain, palpitations or syncopal episodes. RESPIRATORY: Positive for shortness of breath, cough, congestion no hemoptysis. GASTROINTESTINAL: Denies change in appetite, denies abdominal pain GENITOURINARY: Denies hematuria, denies infections. MUSKULOSKELETAL: Denies pain, denies swelling. INTEGUMENTARY: Denies rash, denies eczema. NEUROLOGICAL: Denies recent memory loss, no recent seizure activity. PSYCHIATRIC: Denies anxiety, denies depression. HEMATOLOGIC/LYMPHATIC: Denies anemia, denies enlarged lymph nodes. Past Medical History Past Medical History: Atrial Fibrillation, Chest Pain / Angina, Heart Failure, GI Bleed, Hypertension, Rheumatoid Arthritis (RA), Sleep Apnea/CPAP/BIPAP, Thyroid Disorder Additional Past Medical History / Comment(s): History of atrial fibrillation post-ablation and cardioversions, recent hospitalization for GI bleeds related to a antral ulcer, anemia secondary to GI bleed, vertigo, liver lesion probably a meningioma and the patient will be having an outpatient MRI at a later stage, not currently using CPAP History of Any Multi-Drug Resistant Organisms: MRSA Date of last positivie culture/infection: 06/23/05 MDRO Source:: lt arm Past Surgical History: Appendectomy, Section, Coronary Bypass/CABG, Heart Catheterization, Hysterectomy, Joint Replacement, Orthopedic Surgery, T ubal Ligation Additional Past Surgical History / Comment(s): 7 KNEE SURGERIES= 0NE LEFT KNEE ARTHROSCOPY, and 5 RT KNEE ARTHROSCOPIES THEN TOTAL RT KNEE DONE & THEN TOTAL REVISION TO RT KNEE , PLACIDO. ACHILLES TENDON SURGERY- HAS SCREWS IN PLACIDO. HEELS, EYE SURGERY A CHILD(STRABISMUS), DENTAL IMPLANT BOTTOM LT., COLONOSCOPY, right shoulder sx x2 05/23/18 left thorancentesis. Pacemaker placed Feb 2024 Past Anesthesia/Blood Transfusion Reactions: Previous Problems w/ Anesthesia, Family History of Problems w/ Anesthesia, Postoperative Nausea & Vomiting (PONV) Additional Past Anesthesia/Blood Transfusion Reaction / Comment(s): PT & HER MOTHER HAVE HX PONV Past Psychological History: No Psychological Hx Reported Additional Psychological History / Comment(s): Pt resides with her spouse. She is independent. She uses no assistive device. She drives. Smoking Status: Never smoker Past Alcohol Use History: Rare Past Drug Use History: None Reported - Past Family History Mother Family Medical History: Congestive Heart Failure (CHF), Diabetes Mellitus Additional Family Medical History / Comment(s): History of spinal stenosis, heavy smoker and IDDM. Mother at age 73yrs. Father Family Medical History: Diabetes Mellitus, Hypertension Additional Family Medical History / Comment(s): Heavy smoker, Father in his late 60's or early 70's. Medications and Allergies Home Medications Medication Instructions Recorded Confirmed Type Rivaroxaban [Xarelto] 20 mg PO DAILY@1600 02/16/15 08/03/24 History Aspirin [Adult Low Dose Aspirin EC] 81 mg PO DAILY 09/11/20 08/03/24 History Multivit-Min/Iron/Folic/Lutein 1 tab PO DAILY 09/11/20 08/03/24 History [Centrum Silver Women Tablet] lisinopriL [Zestril] 5 mg PO DAILY 09/11/20 08/03/24 History Letrozole [Femara] 2.5 mg PO DAILY 09/16/23 08/03/24 History Levothyroxine Sodium [Synthroid] 25 mcg PO MOTUWE 09/16/23 08/03/24 History Levothyroxine Sodium [Synthroid] 50 mcg PO SUTHFRSA 09/16/23 08/03/24 History Pantoprazole [Protonix] 40 mg PO DAILY 09/16/23 08/03/24 History Rosuvastatin [Crestor] 10 mg PO HS 09/16/23 08/03/24 History Amiodarone [Cordarone] 200 mg PO DAILY 08/03/24 08/03/24 History Clotrimazole/Betameth Cream 1 applic TOPICAL BID 08/03/24 08/03/24 History [Lotrisone] Furosemide [Lasix] 40 mg PO BID 08/03/24 08/03/24 History Metoprolol Tartrate [Lopressor] 25 mg PO BID 08/03/24 08/03/24 History Potassium Chloride ER [K-Dur 20] 20 meq PO BID 08/03/24 08/03/24 History traZODone HCL [Desyrel] 50 mg PO HS PRN 08/03/24 08/03/24 History Allergies Allergy/AdvReac Type Severity Reaction Status Date / Time No Known Allergies Allergy Verified 08/03/24 14:46 Physical Exam Vitals: Vital Signs Temp Pulse Resp BP Pulse Ox 08/05/24 07:51 98.7 F 109 H 20 117/61 98 08/05/24 02:13 97.8 F 104 H 23 112/82 99 08/04/24 20:48 97.9 F 107 H 22 123/80 98 Intake and Output 08/04/24 08/05/24 08/05/24 22:59 06:59 14:59 Intake Total 2500 350 Balance 2500 350 Intake: Oral 2500 Other 350 Other: Voiding Method Toilet # Voids 5 GENERAL EXAM: Alert, obese, 69-year-old female, on 5 L nasal cannula, fairly comfortable in no apparent distress. HEAD: Normocephalic. EYES: Normal reaction of pupils, equal size. NOSE: Clear with pink turbinates. THROAT: No erythema or exudates. NECK: No masses, no JVD. CHEST: No chest wall deformity. Tenderness at the pacemaker site in the left subclavian area. LUNGS: Equal air entry with crackles in the bilateral bases. CVS: S1 and S2 normal with no audible murmur, regular rhythm. ABDOMEN: No hepatosplenomegaly, normal bowel sounds, no guarding or rigidity. SPINE: No scoliosis or deformity SKIN: No rashes CENTRAL NERVOUS SYSTEM: No focal deficits, tone is normal in all 4 extremities. EXTREMITIES: Healing ecchymosis in the right groin area, there is trace peripheral edema. No clubbing, no cyanosis. Peripheral pulses are intact. Results - Laboratory Findings CBC and BMP: 08/03/24 11:40 08/03/24 11:40 PT/INR, D-dimer PT 11.7 sec (10.0-12.5) 08/03/24 11:40 INR 1.1 (<1.2) 08/03/24 11:40 D-Dimer 0.79 mg/L FEU (<0.60) H 08/03/24 11:40 Abnormal lab findings: Abnormal Labs 08/03/24 08/03/24 08/03/24 11:40 11:40 11:40 WBC 10.7 H RBC 3.45 L Hgb 10.0 L Hct 30.4 L Neutrophils # 8.1 H D-Dimer 0.79 H Glucose 115 H Total Protein 8.5 H - Diagnostic Findings Chest x-ray: image reviewed CT scan - chest: image reviewed Assessment and Plan Assessment: Acute hypoxic respiratory failure secondary to fluid volume overload with scattered airspace opacities. Pulmonary embolism ruled out Bacteremia secondary to Streptococcus species of unclear etiology Recent atrial fibrillation ablation in June 2024 with ongoing tenderness and ecchymosis of the right groin site Permanent pacemaker implantation in February 2024 with continued and ongoing tenderness at the left subclavian site History of breast cancer treated 2 years ago Mitral valve repair and 2018 History of atrial fibrillation, anticoagulated with Xarelto Hypertension Hyperlipidemia Hypothyroidism Plan: The patient was seen and evaluated Imaging, labs and medications reviewed Continue Zosyn Continue diuretics Continue Xarelto Cardiology consult Echocardiogram Infectious disease consult Recommend [place] [facility] to recent procedures and bacteremia We will continue to follow and make further recommendations based on her clinical status I have personally seen and examined the patient, performed the documentation and the assessment and plan as written. Number of minutes spent on the visit: 20 Dictation was produced using [employer] dictation software. Please excuse any grammatical, word or spelling errors.
--- NOTE | 2024-08-05 14:53 | P.PN ---
Progress Note - Text Progress Note Date: 08/05/24 Chief Complaint: Short of breath 69-year-old patient who follows with Dr. Jewel Santiago. Chronic medical conditions include rheumatoid arthritis after sleep apnea hypothyroid atrial fibrillation recent ablation GI bleed because of antral ulcer does not use CPAP. Coronary artery disease with previous bypass. 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 Procedure lasted for 2 and half hours. Patient was home for 2 days became short of breath. Went to [facility] was admitted there for 4 days for pneumonia. Was sent home. After 3 days again became short of breath [facility] Patient went home. For about a week again patient started having creasing shortness of breath. Cough. Yellow- brown sputum. Some fever. Appetite is fair. Patient is accompanied by her and son in the hospital. Also having chills. Patient started on IV Zosyn in the ER. Having significant cough August 05: Up in a chair. Some decrease in cough. Very slight improvement in shortness of breath. Though still present. On IV Zosyn. Blood cultures positive for Streptococcus Tokio. Pending final ID. Repeat blood culture. Patient had a pacemaker placed in February of last year. Has some localized tenderness since then. Also in both the groins has some tenderness since her vascular access for ablation. Consult Dr. Galeas from vascular to evaluate Active Medications Aspirin (Aspirin 81 Mg) 81 mg PO DAILY [facility] Last Admin: 08/05/24 09:07 Dose: 81 mg Atorvastatin Calcium (Atorvastatin 20 Mg Tab) 20 mg PO HS [facility] Last Admin: 08/04/24 21:27 Dose: 20 mg Furosemide (Furosemide 40 Mg Tab) 40 mg PO BID [facility] Last Admin: 08/05/24 09:07 Dose: 40 mg Sodium Chloride (Saline 0.9%) 1,000 mls @ 130 mls/hr IV .Q7H42M [facility] Last Admin: 08/05/24 12:00 Dose: Not Given Piperacillin Sod/Tazobactam (Sod 3.375 gm/ Sodium Chloride) 100 mls @ 25 mls/hr IVPB Q8HR [facility]; Protocol Stop: 08/08/24 00:00 Last Admin: 08/05/24 09:07 Dose: 25 mls/hr Letrozole (Letrozole 2.5 Mg Tab) 2.5 mg PO DAILY [facility] Last Admin: 08/05/24 09:07 Dose: 2.5 mg Levothyroxine Sodium (Levothyroxine 25 Mcg Tab) 25 mcg PO MOTUWE [facility] Last Admin: 08/05/24 05:59 Dose: 25 mcg Levothyroxine Sodium (Levothyroxine 25 Mcg Tab) 50 mcg PO SUTHFRSA [facility] Last Admin: 08/04/24 06:30 Dose: 50 mcg Lisinopril (Lisinopril 5 Mg Tab) 5 mg PO DAILY [facility] Last Admin: 08/05/24 09:07 Dose: 5 mg Metoprolol Tartrate (Metoprolol Tartrate 25 Mg Tab) 25 mg PO BID [facility] Last Admin: 08/05/24 09:07 Dose: 25 mg Miscellaneous Information (Pneumonia Protocol Utilized 1 Each Misc) 1 each PO ONCE PRN PRN Reason: Per Protocol Multivitamins (Multivitamins, Thera 1 Each Tab) 1 each PO DAILY [facility] Last Admin: 08/05/24 09:07 Dose: 1 each Pantoprazole Sodium (Pantoprazole 40 Mg Tablet) 40 mg PO DAILY [facility] Last Admin: 08/05/24 09:07 Dose: 40 mg Potassium Chloride (Potassium Chloride Er 20 Meq Tab.Er) 20 meq PO BID [facility] Last Admin: 08/05/24 09:07 Dose: 20 meq Rivaroxaban (Rivaroxaban 20 Mg Tab) 20 mg PO DAILY@1600 [facility]; Protocol Last Admin: 08/04/24 17:14 Dose: 20 mg Trazodone HCl (Trazodone Hcl 50 Mg Tab) 50 mg PO HS PRN PRN Reason: sleep Social history: Non-smoker. Lives with her . On examination: VITAL SIGNS: 97.9, 112, 16, 99 x 66, 97% on 5 L GENERAL APPEARANCE: BMI 41.2, a bit tired, up in a chair. Some tenderness below the pacemaker site. Overlying skin does not appear inflamed HEENT: Normal external appearance of nose and ear. Oral cavity normal EYES: Pupils equal. Conjunctiva normal. NECK: JVD not raised. Mass not palpable. RESPIRATORY: Respiratory effort increased, fair air entry CARDIOVASCULAR: First and second sounds normal. No edema. ABDOMEN: Soft. Liver and spleen not palpable. No tenderness. No mass palpable. Some tenderness in both the groin. No bruising noted. PSYCHIATRY: Alert and oriented x3. Mood and affect anxious INVESTIGATIONS, reviewed in the clinical context: August 04: Procalcitonin 0.04 August 03: White count 10.7 hemoglobin 10 platelets 305 sodium 138 potassium 4.2 creatinine 0.6 Troponin I less than 0.012 proBNP 295 Influenza type A, type B, RSV, COVID-19: Not detected. Urine Legionella antigen negative Chest x-ray film personally reviewed by me-scattered infiltrates Chest CTA: Negative PE. Scattered airspace opacities groundglass appearance and consolidative changes. Lymph node is increased in size from September 21, 2023. Mild cardiomegaly. EKG tracing personally reviewed by me-sinus rhythm. Some ST segment depression. Assessment and plan: -Recurrent pneumonia. Patient's had 3 hospitalizations since May 2024. Variable duration. Patient yet again presents with fever cough sputum production. Blood cultures positive for Streptococcus Tokio, preliminary Pending immunodeficiency panel IV Zosyn for now -Bilateral tenderness in both the groins at the access site for ablation June 07. Consult Dr. Galeas for further evaluation. -Sepsis with blood cultures growing cryptococcus Tokio IV Zosyn -Paroxysmal atrial fibrillation. Patient had ablation done on June 07. Currently in sinus rhythm Lopressor 25 mg twice daily. Xarelto Amiodarone -Essential hypertension Toprol-XL -Obstructive sleep apnea Does not use CPAP -Hypothyroidism: Synthroid to continue -Morbid obesity BMI 41.2 Weight loss measures -GERD Protonix -Full code Continue IV Zosyn. Consult Dr. Galeas for bilateral groin tenderness at the access site for ablation Past Medical History Past Medical History: Atrial Fibrillation, Chest Pain / Angina, Heart Failure, GI Bleed, Hypertension, Rheumatoid Arthritis (RA), Sleep Apnea/CPAP/BIPAP, Thyroid Disorder Additional Past Medical History / Comment(s): History of atrial fibrillation post-ablation and cardioversions, recent hospitalization for GI bleeds related to a antral ulcer, anemia secondary to GI bleed, vertigo, liver lesion probably a meningioma and the patient will be having an outpatient MRI at a later stage, not currently using CPAP History of Any Multi-Drug Resistant Organisms: MRSA Date of last positivie culture/infection: 06/23/05 MDRO Source:: lt arm Past Surgical History: Appendectomy, Section, Coronary Bypass/CABG, Heart Catheterization, Hysterectomy, Joint Replacement, Orthopedic Surgery, Tubal Ligation Additional Past Surgical History / Comment(s): 7 KNEE SURGERIES= 0NE LEFT KNEE ARTHROSCOPY, and 5 RT KNEE ARTHROSCOPIES THEN TOTAL RT KNEE DONE & THEN TOTAL REVISION TO RT KNEE , PLACIDO. ACHILLES TENDON SURGERY- HAS SCREWS IN PLACIDO. HEELS, EYE SURGERY A CHILD(STRABISMUS), DENTAL IMPLANT BOTTOM LT., COLONOSCOPY, right shoulder sx x2 05/23/18 left thorancentesis. Pacemaker placed Feb 2024 Past Anesthesia/Blood Transfusion Reactions: Previous Problems w/ Anesthesia, Fa sai History of Problems w/ Anesthesia, Postoperative Nausea & Vomiting (PONV) Additional Past Anesthesia/Blood Transfusion Reaction / Comment(s): PT & HER MOTHER HAVE HX PONV Past Psychological History: No Psychological Hx Reported Additional Psychological History / Comment(s): Pt resides with her spouse. She is independent. She uses no assistive device. She drives. Smoking Status: Never smoker Past Alcohol Use History: Rare Past Drug Use History: None Reported
--- NOTE | 2024-08-05 15:41 | P.GSCN ---
History of Present Illness Consult date: 08/05/24 Reason for Consult: Bilateral groin pain at vascular access site Requesting physician: Lucas Krishna History of present illness: Patient is a pleasant 69-year-old female who presented to the emergency department 2 days ago with complaints of shortness of breath. Patient has been recently treated for pneumonia.past medical history includes rheumatoid arthritis, sleep apnea, hypothyroid, atrial fibrillation with history of pacemaker and recent cardiac ablation done in May 2024 at [facility] with Dr. Harvey. Patient is currently admitted with shortness of breath and recurrent pneumonia And sepsis with positive blood cultures. Apparently patient was complaining of groin pain since her ablation and vascular surgery was consulted for further evaluation. Patient states she is having pain in her right groin. No pain in her left groin. She has a rash on bilateral groins and upper thighs as well as her arms. She states that she was accessed in both groins, procedure was done at [facility] in May. She has not seen any bleeding from her access sites and no drainage noted. Patient is able to ambulate, full range of motion of her lower extremities. No pain radiating down her legs. Review of Systems A 14 point review systems was completed all pertinent positives and negatives as stated in the HPI. Past Medical History Past Medical History: Atrial Fibrillation, Chest Pain / Angina, Heart Failure, GI Bleed, Hypertension, Rheumatoid Arthritis (RA), Sleep Apnea/CPAP/BIPAP, Thyroid Disorder Additional Past Medical History / Comment(s): History of atrial fibrillation post-ablation and cardioversions, recent hospitalization for GI bleeds related to a antral ulcer, anemia secondary to GI bleed, vertigo, liver lesion probably a meningioma and the patient will be having an outpatient MRI at a later stage, not currently using CPAP History of Any Multi-Drug Resistant Organisms: MRSA Year Discovered:: 06/23/05 MDRO Source:: lt arm Past Surgical History: Appendectomy, Section, Coronary Bypass/CABG, Heart Catheterization, Hysterectomy, Joint Replacement, Orthopedic Surgery, Tubal Ligation Additional Past Surgical History / Comment(s): 7 KNEE SURGERIES= 0NE LEFT KNEE ARTHROSCOPY, and 5 RT KNEE ARTHROSCOPIES THEN TOTAL RT KNEE DONE & THEN TOTAL REVISION TO RT KNEE , PLACIDO. ACHILLES TENDON SURGERY- HAS SCREWS IN PLACIDO. HEELS, EYE SURGERY A CHILD(STRABISMUS), DENTAL IMPLANT BOTTOM LT., COLONOSCOPY, right shoulder sx x2 05/23/18 left thorancentesis. Pacemaker placed Feb 2024 Past Anesthesia/Blood Transfusion Reactions: Previous Problems w/ Anesthesia, Family History of Problems w/ Anesthesia, Postoperative Nausea & Vomiting (PONV) Additional Past Anesthesia/Blood Transfusion Reaction / Comm: PT & HER MOTHER HAVE HX PONV Past Psychological History: No Psychological Hx Reported Additional Psychological History / Comment(s): Pt resides with her spouse. She is independent. She uses no assistive device. She drives. Smoking Status: Never smoker Past Alcohol Use History: Rare Past Drug Use History: None Reported - Past Family History Mother Family Medical History: Congestive Heart Failure (CHF), Diabetes Mellitus Additional Family Medical History / Comment(s): History of spinal stenosis, heavy smoker and IDDM. Mother at age 73yrs. Father Family Medical History: Diabetes Mellitus, Hypertension Additional Family Medical History / Comment(s): Heavy smoker, Father in his late 60's or early 70's. Medications and Allergies Home Medications Medication Instructions Recorded Confirmed Type Rivaroxaban [Xarelto] 20 mg PO DAILY@1600 02/16/15 08/03/24 History Aspirin [Adult Low Dose Aspirin EC] 81 mg PO DAILY 09/11/20 08/03/24 History Multivit-Min/Iron/Folic/Lutein 1 tab PO DAILY 09/11/20 08/03/24 History [Centrum Silver Women Tablet] lisinopriL [Zestril] 5 mg PO DAILY 09/11/20 08/03/24 History Letrozole [Femara] 2.5 mg PO DAILY 09/16/23 08/03/24 History Levothyroxine Sodium [Synthroid] 25 mcg PO MOTUWE 09/16/23 08/03/24 History Levothyroxine Sodium [Synthroid] 50 mcg PO SUTHFRSA 09/16/23 08/03/24 History Pantoprazole [Protonix] 40 mg PO DAILY 09/16/23 08/03/24 History Rosuvastatin [Crestor] 10 mg PO HS 09/16/23 08/03/24 History Amiodarone [Cordarone] 200 mg PO DAILY 08/03/24 08/03/24 History Clotrimazole/Betameth Cream 1 applic TOPICAL BID 08/03/24 08/03/24 History [Lotrisone] Furosemide [Lasix] 40 mg PO BID 08/03/24 08/03/24 History Metoprolol Tartrate [Lopressor] 25 mg PO BID 08/03/24 08/03/24 History Potassium Chloride ER [K-Dur 20] 20 meq PO BID 08/03/24 08/03/24 History traZODone HCL [Desyrel] 50 mg PO HS PRN 08/03/24 08/03/24 History Allergies Allergy/AdvReac Type Severity Reaction Status Date / Time No Known Allergies Allergy Verified 08/03/24 14:46 Surgical - Exam Vital Signs Temp Pulse Resp BP Pulse Ox 98.2 F 84 30 H 134/65 96 08/03/24 11:12 08/03/24 11:12 08/03/24 11:12 08/03/24 11:12 08/03/24 11:12 General appearance: The patient is alert, oriented, appears in no acute distress. Obese. HET: Head is normocephalic and atraumatic. Pupils are equal and reactive. Neck: Supple. Heart: Regular. Lungs: Equal expansion, normal respiratory effort. Bilateral wheezing. Abdomen: Soft, nontender, nondistended. Extremities: Bilateral palpable femoral pulses. Right groin with tenderness and induration. Possibly under previous access site. Bilateral groins moist, with redness. Patient has a red rash on bilateral thighs. Neurological: No focal deficits. Strength and sensation are grossly intact. Results - Labs 08/03/24 11:40 08/03/24 11:40 Microbiology - Last 24 Hours (Table) 08/03/24 11:40 Blood Culture Gram Stain - Preliminary Blood Blood Culture - Preliminary Streptococcus thermophilus Molecular ID Assessment and Plan Assessment: 1. Right groin pain, patient had recent cardiac ablation with reported access from bilateral groins in May 2024 at [facility] 2. Pneumonia 3. Shortness of breath 4. Atrial fibrillation status post pacemaker and cardiac ablation 5. Rash, unknown etiology Plan: 1. Will order carotid duplex of right lower extremity evaluate groin site 2. Rest of medical management per primary medical team Thank you for this consultation, we will continue to follow. The impression and plan of care has been dictated as directed. Dr. Galeas I performed a history and examination of this patient, discussed the same with the dictator. I agree with the dictator's note ,documented as a scribe. Any additional findings or plans will be noted.
--- NOTE | 2024-08-05 16:11 | US ---
EXAMINATION TYPE: US venous doppler duplex LE RT DATE OF EXAM: 08/05/2024 3:53 PM COMPARISON: NONE CLINICAL INDICATION: Female, 69 years old with history of Right groin pain status post cardiac ablati on; Right groin pain. , Pain TECHNIQUE: The lower extremity deep venous system is examined utilizing real time linear array sonog katarina with graded compression, color doppler sonography, and spectral doppler. SIDE PERFORMED: Right FINDINGS: VESSELS IMAGED: Common Femoral Vein Deep Femoral Vein Greater Saphenous Vein * Femoral Vein Popliteal Vein Small Saphenous Vein * Proximal Calf Veins (* superficial vessels) Right Leg: Negative for DVT, Color Doppler imaging shows patency of the vessels. Spectral waveforms are within normal limits. IMPRESSION: 1. Right lower extremity ultrasound negative for deep venous thrombosis [facility] Tabatha Leyva, , 08/05/2024 4:09 PM
--- NOTE | 2024-08-05 21:00 | P.CONS ---
History of Present Illness - Reason for Consult Consult date: 08/05/24 Positive blood culture Requesting physician: Audrey Santiago - Chief Complaint Shortness of breath and fever x few days - History of Present Illness Patient is a 69-year-old female with a past medical history significant for atrial fibrillation heart failure hypertension rheumatoid arthritis sleep apnea patient did have pacemaker placement in 2023 and apparently the patient did have a cardiac ablation procedure done in June 2024 approach to bilateral groin area patient manage subsequently postprocedure she did have significant bruising to the right groin concerning for hematoma and impending with some tenderness at the left chest wall pacemaker site as well patient was admitted at [facility] and she was diagnosed and treated for pneumonia subsequently has admission at [facility] with the patient did have a bacteremia however she is not very clear which type of bacteremia she has or if she was seen by ID physician however the patient was not sent home on any IV antibiotics patient now presenting to [facility] 2 days ago for evaluation of increasing shortness of breath that apparently has been getting worse for a day or 2 before the patient was brought into the hospital patient was complaining of rigors and chills and did have a temperature of 102 F at home. Denies significant headache or URI symptoms denies having any chest pain she has been complaining of cough which has been mild to moderate intensity but and she will bring up some yellow sputum but not anymore did have some nausea but no vomiting no abdominal pain no diarrhea still complaining of some discomfort to the groin area on presentation to the hospital patient was afebrile and no fever have been recorded subsequently patient has been tachycardic but not hypotensive mildly hypoxic currently on 5 L nasal cannula oxygen patient did have a white count of 10.7 at admission creatinine 0.64 electrolytes are normal liver enzymes are normal procalcitonin 0.04 influenza RSV COVID urine for Legionella antigen has been negative blood cultures given positive with Streptococcus thermophilus patient has been treated with his Zosyn infectious he was consulted for further management of antibiotic therapy Review of Systems Positive point and negatives has been mentioned in the HPI, complete review of systems was performed and all other systems are negative Past Medical History Past Medical History: Atrial Fibrillation, Chest Pain / Angina, Heart Failure, GI Bleed, Hypertension, Rheumatoid Arthritis (RA), Sleep Apnea/CPAP/BIPAP, Thyroid Disorder Additional Past Medical History / Comment(s): History of atrial fibrillation post-ablation and cardioversions, recent hospitalization for GI bleeds related to a antral ulcer, anemia secondary to GI bleed, vertigo, liver lesion probably a meningioma and the patient will be having an outpatient MRI at a later stage, not currently using CPAP History of Any Multi-Drug Resistant Organisms: MRSA Year Discovered:: 06/23/05 MDRO Source:: lt arm Past Surgical History: Appendectomy, Section, Coronary Bypass/CABG, Heart Catheterization, Hysterectomy, Joint Replacement, Orthopedic Surgery, Tubal Ligation Additional Past Surgical History / Comment(s): 7 KNEE SURGERIES= 0NE LEFT KNEE ARTHROSCOPY, and 5 RT KNEE ARTHROSCOPIES THEN TOTAL RT KNEE DONE & THEN TOTAL REVISION TO RT KNEE , PLACIDO. ACHILLES TENDON SURGERY- HAS SCREWS IN PLACIDO. HEELS, EYE SURGERY A CHILD(STRABISMUS), DENTAL IMPLANT BOTTOM LT., COLONOSCOPY, right shoulder sx x2 05/23/18 left thorancentesis. Pacemaker placed Feb 2024 Past Anesthesia/Blood Transfusion Reactions: Previous Problems w/ Anesthesia, Family History of Problems w/ Anesthesia, Postoperative Nausea & Vomiting (PONV) Additional Past Anesthesia/Blood Transfusion Reaction / Comm: PT & HER MOTHER HAVE HX PONV Past Psychological History: No Psychological Hx Reported Additional Psychological History / Comment(s): Pt resides with her spouse. She is independent. She uses no assistive device. She drives. Smoking Status: Never smoker Past Alcohol Use History: Rare Past Drug Use History: None Reported - Past Family History Mother Family Medical History: Congestive Heart Failure (CHF), Diabetes Mellitus Additional Family Medical History / Comment(s): History of spinal stenosis, heavy smoker and IDDM. Mother at age 73yrs. Father Family Medical History: Diabetes Mellitus, Hypertension Additional Family Medical History / Comment(s): Heavy smoker, Father in his late 60's or early 70's. Medications and Allergies Home Medications Medication Instructions Recorded Confirmed Type Rivaroxaban [Xarelto] 20 mg PO DAILY@1600 02/16/15 08/03/24 History Aspirin [Adult Low Dose Aspirin EC] 81 mg PO DAILY 09/11/20 08/03/24 History Multivit-Min/Iron/Folic/Lutein 1 tab PO DAILY 09/11/20 08/03/24 History [Centrum Silver Women Tablet] lisinopriL [Zestril] 5 mg PO DAILY 09/11/20 08/03/24 History Letrozole [Femara] 2.5 mg PO DAILY 09/16/23 08/03/24 History Levothyroxine Sodium [Synthroid] 25 mcg PO MOTUWE 09/16/23 08/03/24 History Levothyroxine Sodium [Synthroid] 50 mcg PO SUTHFRSA 09/16/23 08/03/24 History Pantoprazole [Protonix] 40 mg PO DAILY 09/16/23 08/03/24 History Rosuvastatin [Crestor] 10 mg PO HS 09/16/23 08/03/24 History Amiodarone [Cordarone] 200 mg PO DAILY 08/03/24 08/03/24 History Clotrimazole/Betameth Cream 1 applic TOPICAL BID 08/03/24 08/03/24 History [Lotrisone] Furosemide [Lasix] 40 mg PO BID 08/03/24 08/03/24 History Metoprolol Tartrate [Lopressor] 25 mg PO BID 08/03/24 08/03/24 History Potassium Chloride ER [K-Dur 20] 20 meq PO BID 08/03/24 08/03/24 History traZODone HCL [Desyrel] 50 mg PO HS PRN 08/03/24 08/03/24 History Allergies Allergy/AdvReac Type Severity Reaction Status Date / Time No Known Allergies Allergy Verified 08/03/24 14:46 Physical Exam Vitals: Vital Signs Temp Pulse Resp BP Pulse Ox 08/05/24 07:51 98.7 F 109 H 20 117/61 98 08/05/24 02:13 97.8 F 104 H 23 112/82 99 08/04/24 20:48 97.9 F 107 H 22 123/80 98 08/04/24 13:22 97.6 F 81 18 122/82 96 Intake and Output 08/04/24 08/05/24 08/05/24 22:59 06:59 14:59 Intake Total 2500 350 Balance 2500 350 Intake: Oral 2500 Other 350 Other: Voiding Method Toilet # Voids 5 GENERAL DESCRIPTION: Elderly female up in the chair no distress. No tachypnea or accessory muscle of respiration use. HEENT: Shows Pallor , no scleral icterus. Oral mucous membrane is dry. No pharyngeal erythema or thrush NECK: Trachea central, no thyromegaly. LUNGS: Unlabored breathing. Decreased breath sound the base HEART: S1, S2, regular rate and rhythm. ABDOMEN: Soft, no tenderness , EXTREMITIES: No edema of feet. Bilateral groin he did have some rash but no induration or tenderness was noticed SKIN: No rash, no masses palpable. NEUROLOGICAL: The patient is awake, alert, oriented x3, mood and affect normal. Results CBC & Chem 7: 08/03/24 11:40 08/03/24 11:40 Labs: Microbiology - Last 24 Hours (Table) 08/03/24 11:40 Blood Culture Gram Stain - Preliminary Blood Blood Culture - Preliminary Molecular ID Assessment and Plan (1) Bacteremia Current Visit: Yes Status: Acute Code(s): R78.81 - BACTEREMIA SNOMED Code(s): 8819684 Plan: 1patient with the streptococcal bacteremia and this patient apparently did have similar symptoms and admission at [facility] patient also have a bacteremia however she is not clear about the type of blood infection, will try to obtain records from [place] and internal history of the same pathogen we will need to rule out any endovascular source to the likely source for this bacteremia clinically doubt pneumonia 2-blood culture has been repeated and echocardiogram has been ordered results will be followed 3-check inflammatory markers 4-antibiotics will be switched to Rocephin 2 g daily We will follow on clinical condition and cultures to further adjust medication if needed Thank you for this consultation we will follow the patient along with you Dictation was produced using [employer] dictation software. please excuse any grammatical, word or spelling errors. Time with Patient: Greater than 30
[2024-08-06 03:40] LABS: Hepatitis B Surface Antigen Nonreactive (Nonreactive); Hepatitis C IgG Antibody Nonreactive (Nonreactive)
--- NOTE | 2024-08-06 09:07 | P.PN ---
Subjective Progress Note Date: 08/06/24 Principal diagnosis: Right groin pain Patient is seen and examined today as a follow-up from vascular surgery for complaints of right groin pain since her cardiac ablation in May 2024 done at [facility]. Patient states pain is only present if you push in that area otherwise she denies any pain down her right lower extremity and no decrease in range of motion. Venous duplex was ordered to evaluate right groin with findings of a negative study for DVT and no other findings. Objective - Vital Signs Vital signs: Vital Signs Temp 97.7 F 08/06/24 07:07 Pulse 120 H 08/06/24 07:07 Resp 18 08/06/24 07:07 BP 138/81 08/06/24 07:07 Pulse Ox 100 08/06/24 07:07 FiO2 Intake & Output 08/05/24 08/06/24 08/06/24 18:59 06:59 18:59 Intake Total 100 Balance 100 Intake: Oral 100 Other: # Voids 10 2 - Exam General appearance: The patient is alert, oriented, appears in no acute distress. HET: Head is normocephalic and atraumatic. Neck: Supple. Abdomen: Soft, nontender, nondistended. Extremities: Rash to bilateral thighs. Right groin tender with palpation at access site with small area of induration. Palpable DP pulse. Neurological: No focal deficits. Alert and oriented x 3. - Labs CBC & Chem 7: 08/03/24 11:40 08/03/24 11:40 Labs: Microbiology - Last 24 Hours (Table) 08/03/24 11:40 Blood Culture Gram Stain - Preliminary Blood Blood Culture - Preliminary Streptococcus thermophilus Molecular ID Assessment and Plan Assessment: 1. Right groin pain with palpation, patient had recent cardiac ablation with reported access from bilateral groins in May 2024 at [facility] 2. Pneumonia 3. Shortness of breath 4. Atrial fibrillation status post pacemaker and cardiac ablation 5. Rash, unknown etiology Plan: 1. Right lower extremity venous duplex ordered and reviewed. No further workup indicated. 2. No indication for any vascular surgical intervention 3. Patient has follow-up appointment with her culture manager who did the procedure next week 4. Rest of medical management per primary medical team Thank you for this consultation, we will sign off at this time. Patient will be given vascular surgical office information and can follow-up as needed. The impression and plan of care has been dictated as directed. Dr. West I performed a history and examination of this patient, discussed the same with the dictator. I agree with the dictator's note ,documented as a scribe. Any additional findings or plans will be noted.
--- NOTE | 2024-08-06 09:44 | P.PN ---
Subjective HISTORY OF PRESENT ILLNESS: The patient is a 69-year-old female the patient is a 69-year-old female who presents with symptoms of worsening dyspnea associated with cough. Cardiology consultation was requested because of her known cardiac history. The patient is followed by Dr. Lam. She underwent mitral valve repair in April 2028 for severe mitral regurgitation with modified Mauricio-Maze procedure. At that time she had a preserved systolic function with no evidence of obstructive CAD. She had a pacemaker implanted in February 2024 and on July 07 underwent ablation for atrial fibrillation at [facility]. Few days after her discharge she started complaining of dyspnea with cough, she was admitted to [facility] for treatment of pneumonia, after her discharge she had recurrence of her symptoms 2 days after and subsequently admitted to [facility] for 7 days with similar symptoms. After being discharged home her symptoms did not resolve and she continues to have significant dyspnea, cough. Her wheezing has resolved. She has low-grade temperature at home. She has rare palpitations but continues to be in sinus mechanism. She has no significant peripheral edema and no chest discomfort. She has symptoms of nausea and some vomiting but no recent GI bleeding. She has been anticoagulated at home. She has a history of hypertension and hyperlipidemia, she is nondiabetic. 08/06/2024 Patient examined this morning. Patient is sitting on the side of the bed completing a puzzle. She currently denies chest pain or pressure. She denies shortness of breath. She does report tenderness at the site of her pacemaker which has been present since insertion. Blood cultures are positive for Streptococcus thermophilus. WBC from the 11th is 10.7. PHYSICAL EXAM: VITAL SIGNS: Reviewed. GENERAL: Well-developed in no acute distress. NECK: Supple. No JVD or thyromegaly LUNGS: Respirations even and unlabored. Lungs essentially clear to auscultation bilaterally. HEART: Mildly tachycardic. Regular rate and rhythm. S1 and S2 heard. EXTREMITIES: Normal range of motion. No clubbing or cyanosis. Peripheral pulses intact. No lower extremity edema ASSESSMENT: Worsening dyspnea and cough; no clinical evidence of congestive heart failure Bacteremia, Blood cultures are positive for Streptococcus thermophilus History of paroxysmal atrial fibrillation with ablation, June 2024 History of pacemaker implantation, February 2024 History of mitral valve repair, 2017 Hypertension Hyperlipidemia Hypothyroidism PLAN: Continue current cardiac medications 2D echo has been ordered. Await results. Continue antibiotics per infectious disease. Patient does report that she had a CORINNE performed after her ablation in June. [facility]btain [facility] and also from [facility]. Initiate telemetry monitoring as patient is mildly tachycardic this morning Further recommendations pending patient course Nurse practitioner note has been reviewed by physician. Signing provider agrees with the documented findings, assessment, and plan of care documented by [employer] as a scribe. Objective - Vital Signs Vital signs: Vital Signs Temp 97.7 F 08/06/24 07:07 Pulse 120 H 08/06/24 07:07 Resp 18 08/06/24 07:07 BP 138/81 08/06/24 07:07 Pulse Ox 100 08/06/24 07:07 FiO2 Intake & Output 08/05/24 08/06/24 08/06/24 18:59 06:59 18:59 Intake Total 100 Balance 100 Intake: Oral 100 Other: # Voids 10 2 - Labs CBC & Chem 7: 08/03/24 11:40 08/03/24 11:40 Labs: Microbiology - Last 24 Hours (Table) 08/03/24 11:40 Blood Culture Gram Stain - Preliminary Blood Blood Culture - Preliminary Streptococcus thermophilus Molecular ID
[2024-08-06 10:30] LABS: Basophils % (A) 0 %; Eosinophils # (A) 0.1 k/uL (0-0.7); Eosinophils % (A) 1 %; HCT 31.8 % (34.0-46.0); HGB 10.1 gm/dL (11.4-16.0); Lymphocytes # (A) 1.7 k/uL (1.0-4.8); Lymphocytes % (A) 16 %; MCH 28.8 pg (25.0-35.0); MCHC 31.7 g/dL (31.0-37.0); MCV 90.7 fL (80.0-100.0); Mean Platelet Volume 7.6; Monocytes # (A) 0.7 k/uL (0-1.0); Monocytes % (A) 7 %; Neutrophils # (A) 8.1 k/uL (1.3-7.7); Neutrophils % (A) 75 %; Platelet Count 297 k/uL (150-450); RBC 3.51 m/uL (3.80-5.40); RDW 14.2 % (11.5-15.5); WBC 10.8 k/uL (3.8-10.6)
[2024-08-06 10:47] LABS: African American GFR (CKD) >90 (>60 ml/min/1.73 sqM); Anion Gap 10 mmol/L; Blood Urea Nitrogen 13 mg/dL (7-17); Calcium 9.2 mg/dL (8.4-10.2); Carbon Dioxide 29 mmol/L (22-30); Chloride 99 mmol/L (98-107); Glucose 116 mg/dL (74-99); Non-African American GFR(CKD) 86 (>60 ml/min/1.73 sqM); Potassium 3.8 mmol/L (3.5-5.1); Sodium 138 mmol/L (137-145)
[2024-08-06 12:54] LABS: T4/T8 Ratio (CD4:CD8) 4.6 (1.0-3.7)
--- NOTE | 2024-08-06 13:27 | P.PN ---
Subjective Progress Note Date: 08/06/24 This is a 69-year-old female patient with a known history of mitral valve repair in 2018, breast cancer approximately 2 years ago, atrial fibrillation anticoagulated with Xarelto, congestive heart failure, hyperlipidemia, hypothyroidism. She had a permanent pacemaker implanted in February 2024 and has had ongoing issues with severe tenderness at the left subclavian pacemaker site,. She had undergone an atrial fibrillation ablation back on July 07, 2024. She had complications with possible hematoma in the right groin. She was home for approximately 2 days and then went to [facility] and was hospitalized for 4 days for possible pneumonia. She was home again for 3-1/[address] [facility] and was subsequently transferred to [facility] and was there for 7 days and treated for possible pneumonia. She follows with Dr. Stokes as her complaint evaluation officer. She was home for 1 week and then presented here with continued complaints of shortness of breath cough and congestion. Chest x-ray reveals evidence of fluid volume overload. CT angiogram ruled out pulmonary embolism. There is scattered airspace opacities of the lung groundglass appearance and airspace consolidation changes. Mild cardiomegaly with some pulmonary vascular congestion. EKG reveals sinus rhythm. White count 10.7. Hemoglobin 10.0. Platelets 305. Sodium 138. Potassium 4.2. Bicarb 26. BUN 13. Creatinine 0.64. Glucose 115. Viral screen is negative. Procalcitonin is also negative at 0.04. She is seen today in consultation on the regular medical floor. She is currently sitting up in bed. Awake and alert in no acute distress. She is requiring 5 L of nasal cannula however her O2 saturations are 9899%. She has been afebrile. Slightly tachycardic. Blood culture is showing gram-positive cocci in pairs and chains. Streptococcus species. She has been initiated on Zosyn. Continued on oral diuretics. Home medications resumed. Remains on Xarelto. The patient is seen today August 06, 2024 in follow-up on the regular medical floor. She is currently sitting up at the bedside. Awake and alert in no acute distress. Denies any worsening cough or congestion. No phlegm production. Maintaining O2 saturations up to 100% on 5 L/min per nasal cannula. Tachycardic. Procalcitonin was negative at 0.04. Doppler of the right lower extremity was negative for DVT. Blood culture revealing Streptococcus Thermophilus. White count 10.8. Hemoglobin 10.1. Sodium 138. Potassium 3.8. Bicarb 29. BUN 13. Creatinine 0.72. Glucose 116. She remains on ceftriaxone. Anticoagulated with Xarelto. Echocardiogram pending. Objective - Vital Signs Vital signs: Vital Signs Temp 97.7 F 08/06/24 07:07 Pulse 120 H 08/06/24 07:07 Resp 18 08/06/24 07:07 BP 138/81 08/06/24 07:07 Pulse Ox 100 08/06/24 07:07 FiO2 Intake & Output 08/05/24 08/06/24 08/06/24 18:59 06:59 18:59 Intake Total 100 Balance 100 Intake: Oral 100 Other: # Voids 10 2 - Exam GENERAL EXAM: Alert, obese, 69-year-old female, sitting up at the bedside, on 5 L nasal cannula, comfortable in no apparent distress. HEAD: Normocephalic. EYES: Normal reaction of pupils, equal size. NOSE: Clear with pink turbinates. THROAT: No erythema or exudates. NECK: No masses, no JVD. CHEST: No chest wall deformity. Tenderness at the pacemaker site in the left weinberg bclavian area. LUNGS: Equal air entry with crackles in the bilateral bases. CVS: S1 and S2 normal with no audible murmur, regular rhythm. ABDOMEN: No hepatosplenomegaly, normal bowel sounds, no guarding or rigidity. SPINE: No scoliosis or deformity SKIN: Mild rash over trunk and arms CENTRAL NERVOUS SYSTEM: No focal deficits, tone is normal in all 4 extremities. EXTREMITIES: Healing ecchymosis in the right groin area, there is trace peripheral edema. No clubbing, no cyanosis. Peripheral pulses are intact. - Labs CBC & Chem 7: 08/06/24 10:05 08/06/24 10:05 Labs: Abnormal Lab Results - Last 24 Hours (Table) 08/04/24 08/06/24 08/06/24 Range/Units 13:27 10:05 10:05 WBC 10.8 H (3.8-10.6) k/uL RBC 3.51 L (3.80-5.40) m/uL Hgb 10.1 L (11.4-16.0) gm/dL Hct 31.8 L (34.0-46.0) % Neutrophils # 8.1 H (1.3-7.7) k/uL Glucose 116 H (74-99) mg/dL CD4/CD8 Ratio 4.6 H (1.0-3.7) Microbiology - Last 24 Hours (Table) 08/03/24 11:40 Blood Culture Gram Stain - Preliminary Blood Blood Culture - Preliminary Streptococcus thermophilus Molecular ID Assessment and Plan Assessment: Acute hypoxic respiratory failure secondary to fluid volume overload with scattered airspace opacities. Pulmonary embolism ruled out Bacteremia secondary to Streptococcus thermophilus of unclear etiology Recent atrial fibrillation ablation in June 2024 with ongoing tenderness and ecchymosis of the right groin site Permanent pacemaker implantation in February 2024 with continued and ongoing tenderness at the left subclavian site History of breast cancer treated 2 years ago Mitral valve repair and 2018 History of atrial fibrillation, anticoagulated with Xarelto Hypertension Hyperlipidemia Hypothyroidism Plan: The patient was seen and evaluated Labs and medications reviewed Continue the current treatment plan Antibiotics per ID service Titrate down the FiO2 as tolerated Echocardiogram pending We will continue to follow I have personally seen and examined the patient, performed the documentation and the assessment and plan as written. Number of minutes spent on the visit: 10 Dictation was produced using [employer] dictation software. Please excuse any grammatical, word or spelling errors.
--- NOTE | 2024-08-06 16:10 | P.PN ---
Subjective Progress Note Date: 08/06/24 Principal diagnosis: Reason for follow-up is a positive blood culture Patient is a 69-year-old female with a past medical history significant for atrial fibrillation heart failure hypertension rheumatoid arthritis sleep apnea patient did have pacemaker placement in 2023 and apparently the patient did have a cardiac ablation procedure subsequently admission to [facility] followed by [facility] apparently has been treated for possible pneumonia patient did have a positive blood culture at [facility] which was positive for coagulase-negative staph and Streptococcus viridans not being admitted the hospital for increasing shortness of breath ID consulted because of positive blood culture. On today's evaluation that is 08/06/2023, Patient is afebrile this morning patient denies having any chest pain breathing slightly comfortably still having a cough but not bringing up any sputum no nausea vomiting abdominal pain or diarrhea currently on 3 L nasal cannula oxygen. Patient white count is 10.8 creatinine 0.72 blood culture repeat currently pending Objective - Vital Signs Vital signs: Vital Signs Temp 97.7 F 08/06/24 13:01 Pulse 119 H 08/06/24 13:01 Resp 20 08/06/24 13:01 BP 111/75 08/06/24 13:01 Pulse Ox 98 08/06/24 14:16 FiO2 Intake & Output 08/05/24 08/06/24 08/06/24 18:59 06:59 18:59 Intake Total 100 Balance 100 Intake: Oral 100 Other: # Voids 10 2 - Exam GENERAL DESCRIPTION: An elderly female up in bed in no distress RESPIRATORY SYSTEM: Unlabored breathing , coarse breath sounds bilaterally HEART: S1 S2 regular rate and rhythm , ABDOMEN: Soft , no tenderness EXTREMITIES: No edema feet - Labs CBC & Chem 7: 08/06/24 10:05 08/06/24 10:05 Labs: Abnormal Lab Results - Last 24 Hours (Table) 08/04/24 08/06/24 08/06/24 Range/Units 13:27 10:05 10:05 WBC 10.8 H (3.8-10.6) k/uL RBC 3.51 L (3.80-5.40) m/uL Hgb 10.1 L (11.4-16.0) gm/dL Hct 31.8 L (34.0-46.0) % Neutrophils # 8.1 H (1.3-7.7) k/uL Glucose 116 H (74-99) mg/dL CD4/CD8 Ratio 4.6 H (1.0-3.7) Microbiology - Last 24 Hours (Table) 08/03/24 11:40 Blood Culture Gram Stain - Final Blood Blood Culture - Final Streptococcus thermophilus Molecular ID Assessment and Plan (1) Bacteremia Current Visit: Yes Status: Acute Code(s): R78.81 - BACTEREMIA SNOMED Code(s): 9078509 Plan: 1patient with the streptococcal bacteremia and this patient apparently did have similar symptoms and admission at [facility] patient also have a bacteremia however she is not clear about the type of blood infection, we did obtain records from [facility] positive blood culture was coagulase-negative staph and strep viridans only 1 set of blood culture were done 2-blood culture has been repeated which are currently pending and echocardiogram results are currently pending 3-patient to continue with Rocephin 2 g daily while awaiting further workup to be completed Dictation was produced using Yated[employer] dictation software. please excuse any grammatical, word or spelling errors. Time with Patient: Less than 30
--- NOTE | 2024-08-06 17:19 | P.PN ---
Progress Note - Text Progress Note Date: 08/06/24 Chief Complaint: Short of breath 69-year-old patient who follows with Dr. Jewel Santiago. Chronic medical conditions include rheumatoid arthritis after sleep apnea hypothyroid atrial fibrillation recent ablation GI bleed because of antral ulcer does not use CPAP. Coronary artery disease with previous bypass. June 07 patient underwent ablation by her crisis mental health therapist. Procedure lasted for 2 and half hours. Patient was home for 2 days became short of breath. Went to [facility] was admitted there for 4 days for pneumonia. Was sent home. After 3 days again became short of breath was not admitted to [facility] 7 days there for pneumonia. Patient went home. For about a week again patient started having creasing shortness of breath. Cough. Yellow- brown sputum. Some fever. Appetite is fair. Patient is accompanied by her and son in the hospital. Also having chills. Patient started on IV Zosyn in the ER. Having significant cough August 05: Up in a chair. Some decrease in cough. Very slight improvement in shortness of breath. Though still present. On IV Zosyn. Blood cultures positive for Streptococcus Tryon. Pending final ID. Repeat blood culture. Patient had a pacemaker placed in February of last year. Has some localized tenderness since then. Also in both the groins has some tenderness since her vascular access for ablation. Consult Dr. Galeas from vascular to evaluate August 06: Patient seen by vascular Dr. Galeas. Doppler ultrasound venous unremarkable. Being followed by cardiology. Antibiotics been switched to IV ceftriaxone. ID is also following. Breathing is a bit better today. Less short of breath. Blood cultures were positive. Repeat blood cultures pending. Immunodeficiency panel came back to be unremarkable Active Medications Aspirin (Aspirin 81 Mg) 81 mg PO DAILY [facility] Last Admin: 08/06/24 08:56 Dose: 81 mg Atorvastatin Calcium (Atorvastatin 20 Mg Tab) 20 mg PO HS [facility] Last Admin: 08/05/24 19:50 Dose: 20 mg Furosemide (Furosemide 40 Mg Tab) 40 mg PO BID [facility] Last Admin: 08/06/24 08:55 Dose: 40 mg Ceftriaxone Sodium 2 gm/ (Sodium Chloride) 50 mls @ 100 mls/hr IVPB Q24HR [facility]; Protocol Last Admin: 08/06/24 08:55 Dose: 100 mls/hr Letrozole (Letrozole 2.5 Mg Tab) 2.5 mg PO DAILY [facility] Last Admin: 08/06/24 08:56 Dose: 2.5 mg Levothyroxine Sodium (Levothyroxine 25 Mcg Tab) 25 mcg PO [facility] Last Admin: 08/06/24 06:11 Dose: 25 mcg Levothyroxine Sodium (Levothyroxine 25 Mcg Tab) 50 mcg PO [facility]FR[facility] Last Admin: 08/04/24 06:30 Dose: 50 mcg Lisinopril (Lisinopril 5 Mg Tab) 5 mg PO DAILY [facility] Last Admin: 08/06/24 08:55 Dose: 5 mg Metoprolol Tartrate (Metoprolol Tartrate 25 Mg Tab) 25 mg PO BID [facility] Last Admin: 08/06/24 08:55 Dose: 25 mg Miscellaneous Information (Pneumonia Protocol Utilized 1 Each Misc) 1 each PO ONCE PRN PRN Reason: Per Protocol Multivitamins (Multivitamins, Thera 1 Each Tab) 1 each PO DAILY [facility] Last Admin: 08/06/24 08:55 Dose: 1 each Pantoprazole Sodium (Pantoprazole 40 Mg Tablet) 40 mg PO DAILY [facility] Last Admin: 08/06/24 08:55 Dose: 40 mg Potassium Chloride (Potassium Chloride Er 20 Meq Tab.Er) 20 meq PO BID [facility] Last Admin: 08/06/24 08:56 Dose: 20 meq Rivaroxaban (Rivaroxaban 20 Mg Tab) 20 mg PO DAILY@1600 [facility]; Protocol Last Admin: 08/06/24 16:36 Dose: 20 mg Trazodone HCl (Trazodone Hcl 50 Mg Tab) 50 mg PO HS PRN PRN Reason: sleep Social history: Non-smoker. Lives with her . On examination: VITAL SIGNS: 97.7, 119, 20, 111 x 75, 100% on 5 L GENERAL APPEARANCE: BMI 41.2, breathing better. Some tenderness below the pacemaker site. Overlying skin does not appear inflamed HEENT: Normal external appearance of nose and ear. Oral cavity normal EYES: Pupils equal. Conjunctiva normal. NECK: JVD not raised. Mass not palpable. RESPIRATORY: Respiratory effort increased, fair air entry CARDIOVASCULAR: First and second sounds normal. No edema. ABDOMEN: Soft. Liver and spleen not palpable. No tenderness. No mass palpable. Some tenderness in both the groin. No bruising noted. PSYCHIATRY: Alert and oriented x3. Mood and affect anxious INVESTIGATIONS, reviewed in the clinical context: Venous Doppler for right lower extremity Doppler: Negative for DVT August 06: White count 10.8 hemoglobin 10.1 potassium 3.8 creatinine 0.72 Hepatitis B surface antigen nonreactive, hepatitis C IgG antibody nonreactive, HIV rapid nonreactive August 04: Procalcitonin 0.04 August 03: White count 10.7 hemoglobin 10 platelets 305 sodium 138 potassium 4.2 creatinine 0.6 Troponin I less than 0.012 proBNP 295 Influenza type A, type B, RSV, COVID-19: Not detected. Urine Legionella antigen negative Chest x-ray film personally reviewed by me-scattered infiltrates Chest CTA: Negative PE. Scattered airspace opacities groundglass appearance and consolidative changes. Lymph node is increased in size from September 21, 2023. Mild cardiomegaly. EKG tracing personally reviewed by me-sinus rhythm. Some ST segment depression. Assessment and plan: -Recurrent pneumonia. Patient's had 3 hospitalizations since May 2024. Variable duration. Patient yet again presents with fever cough sputum production. Blood cultures positive for Streptococcus Tryon, preliminary. Repeat blood cultures pending Immunodeficiency panel: Unremarkable IV Zosyn changed over to IV ceftriaxone Pulmonary and ID following. -Bilateral tenderness in both the groins at the access site for ablation June 07. See Vascular Dr. Galeas. Signed off. Doppler ultrasound negative for DVT -Sepsis with blood cultures growing cryptococcus Tryon Ceftriaxone. Repeat blood cultures pending. -Paroxysmal atrial fibrillation. Patient had ablation done on June 07. Currently in sinus rhythm Lopressor 25 mg twice daily. Xarelto Amiodarone -Essential hypertension Toprol-XL -Obstructive sleep apnea Does not use CPAP -Hypothyroidism: Synthroid to continue -Morbid obesity BMI 41.2 Weight loss measures -GERD Protonix -Full code Seen by sharita Galeas and signed off. IV ceftriaxone. Breathing better. Increase activity as tolerated. Past Medical History Past Medical History: Atrial Fibrillation, Chest Pain / Angina, Heart Failure, GI Bleed, Hypertension, Rheumatoid Arthritis (RA), Sleep Apnea/CPAP/BIPAP, Thyroid Disorder Additional Past Medical History / Comment(s): History of atrial fibrillation post-ablation and cardioversions, recent hospitalization for GI bleeds related to a antral ulcer, anemia secondary to GI bleed, vertigo, liver lesion probably a meningioma and the patient will be having an outpatient MRI at a later stage, not currently using CPAP History of Any Multi-Drug Resistant Organisms: MRSA Date of last positivie culture/infection: 06/23/05 MDRO Source:: lt arm Past Surgical History: Appendectomy, Section, Coronary Bypass/CABG, Heart Catheterization, Hysterectomy, Joint Replacement, Orthopedic Surgery, Tubal Ligation Additional Past Surgical History / Comment(s): 7 KNEE SURGERIES= 0NE LEFT KNEE ARTHROSCOPY, and 5 RT KNEE ARTHROSCOPIES THEN TOTAL RT KNEE DONE & THEN TOTAL REVISION TO RT KNEE , PLACIDO. ACHILLES TENDON SURGERY- HAS SCREWS IN PLACIDO. HEELS, EYE SURGERY A CHILD(STRABISMUS), DENTAL IMPLANT BOTTOM LT., COLONOSCOPY, right shoulder sx x2 05/23/18 left thorancentesis. Pacemaker placed Feb 2024 Past Anesthesia/Blood Transfusion Reactions: Previous Problems w/ Anesthesia, Family History of Problems w/ Anesthesia, Postoperative Nausea & Vomiting (PONV) Additional Past Anesthesia/Blood Transfusion Reaction / Comment(s): PT & HER MOTHER HAVE HX PONV Past Psychological History: No Psychological Hx Reported Additional Psychological History / Comment(s): Pt resides with her spouse. She is independent. She uses no assistive device. She drives. Smoking Status: Never smoker Past Alcohol Use History: Rare Past Drug Use History: None Reported
[2024-08-07] MEDS ORDERED: DEXTROSE 5% IN WATER 100 ML with AMIODARONE 150 MG IV ONE (08:01)
[2024-08-07] MEDS: METOPROLOL TARTRATE 50 MG TAB PO SCH (08:32)
[2024-08-07 09:53] LABS: Glucose,Whole Blood 145 mg/dL (70-110)
--- NOTE | 2024-08-07 09:54 | P.PN ---
Subjective HISTORY OF PRESENT ILLNESS: The patient is a 69-year-old female the patient is a 69-year-old female who presents with symptoms of worsening dyspnea associated with cough. Cardiology consultation was requested because of her known cardiac history. The patient is followed by Dr. Lam. She underwent mitral valve repair in April 2028 for severe mitral regurgitation with modified Mauricio-Maze procedure. At that time she had a preserved systolic function with no evidence of obstructive CAD. She had a pacemaker implanted in February 2024 and on July 07 underwent ablation for atrial fibrillation at [facility]. Few days after her discharge she started complaining of dyspnea with cough, she was admitted to [facility] for treatment of pneumonia, after her discharge she had recurrence of her symptoms 2 days after and subsequently admitted to [facility] for 7 days with similar symptoms. After being discharged home her symptoms did not resolve and she continues to have significant dyspnea, cough. Her wheezing has resolved. She has low-grade temperature at home. She has rare palpitations but continues to be in sinus mechanism. She has no significant peripheral edema and no chest discomfort. She has symptoms of nausea and some vomiting but no recent GI bleeding. She has been anticoagulated at home. She has a history of hypertension and hyperlipidemia, she is nondiabetic. 08/06/2024 Patient examined this morning. Patient is sitting on the side of the bed completing a puzzle. She currently denies chest pain or pressure. She denies shortness of breath. She does report tenderness at the site of her pacemaker which has been present since insertion. Blood cultures are positive for Streptococcus thermophilus. WBC from the 11th is 10.7. 08/07/2024 Patient examined this morning. Patient is sitting up in the chair. Patient currently denies chest pain or pressure. Telemetry was initiated yesterday. Upon review of telemetry the patient is in atrial flutter with 2-1 conduction. Patient does report having palpitations this morning. Repeat blood cultures are negative at the 24-hour jesus alberto. Still awaiting records of CORINNE that patient states she had performed at [facility]. PHYSICAL EXAM: VITAL SIGNS: Reviewed. GENERAL: Well-developed in no acute distress. NECK: Supple. No JVD or thyromegaly LUNGS: Respirations even and unlabored. Lungs essentially clear to auscultation bilaterally. HEART: Tachycardic. Regular rate and rhythm. S1 and S2 heard. EXTREMITIES: Normal range of motion. No clubbing or cyanosis. Peripheral pulses intact. No lower extremity edema ASSESSMENT: Worsening dyspnea and cough; no clinical evidence of congestive heart failure Bacteremia, Blood cultures are positive for Streptococcus thermophilus, repeat cultures negative at 24-hour jesus alberto Paroxysmal typical atrial flutter with RVR with 2-1 conduction History of paroxysmal atrial fibrillation with ablation, June 2024 History of pacemaker implantation, February 2024 History of mitral valve repair, 2017 Hypertension Hyperlipidemia Hypothyroidism History of cardioversion, 12 times per patient PLAN: Continue current cardiac medications 2D echo has been ordered. Await results. Continue antibiotics per infectious disease. Patient does report that she had a CORINNE performed after her ablation in June. Still awaiting records from [facility]. Continue telemetry monitoring Increase metoprolol to 50 mg twice a day Begin IV amiodarone bolus and drip per protocol Further recommendations pending patient course Nurse practitioner note has been reviewed by physician. Signing provider agrees with the documented findings, assessment, and plan of care documented by SAUSAGE STUFFER as a scribe. Objective - Vital Signs Vital signs: Vital Signs Temp 98.2 F 08/07/24 07:34 Pulse 123 H 08/07/24 07:34 Resp 17 08/07/24 07:34 BP 131/82 08/07/24 07:34 Pulse Ox 99 08/07/24 07:34 FiO2 Intake & Output 08/06/24 08/07/24 08/07/24 18:59 06:59 18:59 Other: Voiding Method Toilet # Voids 3 - Labs CBC & Chem 7: 08/06/24 10:05 08/06/24 10:05 Labs: Abnormal Lab Results - Last 24 Hours (Table) 08/04/24 08/06/24 08/06/24 Range/Units 13:27 10:05 10:05 WBC 10.8 H (3.8-10.6) k/uL RBC 3.51 L (3.80-5.40) m/uL Hgb 10.1 L (11.4-16.0) gm/dL Hct 31.8 L (34.0-46.0) % Neutrophils # 8.1 H (1.3-7.7) k/uL Glucose 116 H (74-99) mg/dL CD4/CD8 Ratio 4.6 H (1.0-3.7) Microbiology - Last 24 Hours (Table) 08/05/24 14:53 Blood Culture - Preliminary Blood 08/03/24 11:40 Blood Culture Gram Stain - Final Blood Blood Culture - Final Streptococcus thermophilus Molecular ID
[2024-08-07] MEDS: DEXTROSE 5% IN WATER 100 ML with AMIODARONE 150 MG IV ONE (09:55)
[2024-08-07] MEDS: AMIODARONE 360 MG in DEXTROSE 5% IN WATER 200 ML IV ONE (09:55)
[2024-08-07] MEDS: methylPREDNISolone 4 MG TAB TAPER PO SCH (11:15)
--- NOTE | 2024-08-07 11:24 | XR ---
EXAMINATION TYPE: XR chest 1V portable DATE OF EXAM: 08/07/2024 10:55 AM COMPARISON: Chest radiographs from 08/04/2024 CLINICAL INDICATION: Female, 69 years old with history of CHF; TECHNIQUE: XR chest 1V portable Frontal view of the chest. FINDINGS: Lungs/Pleura: There is no evidence of pleural effusion, focal consolidation, or pneumothorax. Pulmonary vascularity: Unremarkable. Heart/mediastinum: Cardiomediastinal silhouette is enlarged. Post valve repair changes. Atherosclero tic calcifications are seen in the aorta. Musculoskeletal: No acute osseous pathology. Other findings: None IMPRESSION: Cardiomegaly and mild pulmonary vascular congestion. Correlate with BNP for congestive heart failure. [facility], , 08/07/2024 11:22 AM
[2024-08-07] MEDS: CHOLESTYRAMINE (WITH SUGAR) 4 GM PACKET PO SCH (12:51)
--- NOTE | 2024-08-07 15:02 | P.PN ---
Subjective Progress Note Date: 08/07/24 Principal diagnosis: Possible pneumonia, suspect acute diastolic congestive heart failure, gram- positive bacteremia however felt to be more of a contamination with Streptococcus Thermophilus This is a 69-year-old female patient with a known history of mitral valve repair in 2017, breast cancer approximately 2 years ago, atrial fibrillation anticoagulated with Xarelto, congestive heart failure, hyperlipidemia, hypothyroidism. She had a permanent pacemaker implanted in February 2024 and has had ongoing issues with severe tenderness at the left subclavian pacemaker site,. She had undergone an atrial fibrillation ablation back on July 07, 2024. She had complications with possible hematoma in the right groin. She was home for approximately 2 days and then went to [facility] and was hospitalized for 4 days for possible pneumonia. She was home again for 3-1/2 days then went to [facility] and was subsequently transferred to [facility] and was there for 7 days and treated for possible pneumonia. 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 She was home for 1 week and then presented here with continued complaints of shortness of breath cough and congestion. Chest x-ray reveals evidence of fluid volume overload. CT angiogram ruled out pulmonary embolism. There is scattered airspace opacities of the lung groundglass appearance and airspace consolidation changes. Mild cardiomegaly with some pulmonary vascular congestion. EKG reveals sinus rhythm. White count 10.7. Hemoglobin 10.0. Platelets 305. Sodium 138. Potassium 4.2. Bicarb 26. BUN 13. Creatinine 0.64. Glucose 115. Viral screen is negative. Procalcitonin is also negative at 0.04. She is seen today in consultation on the regular medical floor. She is currently sitting up in bed. Awake and alert in no acute distress. She is requiring 5 L of nasal cannula however her O2 saturations are 9899%. She has been afebrile. Slightly tachycardic. Blood culture is showing gram-positive cocci in pairs and chains. Streptococcus species. She has been initiated on Zosyn. Continued on oral diuretics. Home medications resumed. Remains on Xarelto. The patient is seen today August 06, 2024 in follow-up on the regular medical floor. She is currently sitting up at the bedside. Awake and alert in no acute distress. Denies any worsening cough or congestion. No phlegm production. Maintaining O2 saturations up to 100% on 5 L/min per nasal cannula. Tachy cardic. Procalcitonin was negative at 0.04. Doppler of the right lower extremity was negative for DVT. Blood culture revealing Streptococcus Thermophilus. White count 10.8. Hemoglobin 10.1. Sodium 138. Potassium 3.8. Bicarb 29. BUN 13. Creatinine 0.72. Glucose 116. She remains on ceftriaxone. Anticoagulated with Xarelto. Echocardiogram pending. Patient on 08/07/2024, patient is on 3 L nasal cannula, feeling better, remains on antibiotics and she is also on diuretics, chest x-ray is showing slight improvement but nonetheless continues to show bilateral interstitial infiltrates/possible interstitial edema. Although her BNP level was normal and her procalcitonin level was also normal. Patient did receive initially Rocephin and Zosyn, however she developed a rash felt to be most likely related to Zosyn. This has been discontinued. Patient was transferred to [facility]. ended up in the ICU as an overflow with sinus tachycardia, felt to be possible atrial fibrillation, I reviewed the rhythm strip, seems to be mostly sinus tachycardia. Clinically the patient is feeling better, breathing easier, nonetheless remains on 3 L nasal cannula. Labs today were reviewed again WBC count is 10.8 hemoglobin 10.1 electrolytes are normal renal profile is normal hepatitis screen is negative HIV screen is negative urine Legionella is negative procalcitonin level is 0.04 and BNP level is normal, echocardiogram is normal however reviewed the echocardiogram done at [facility] was normal, no LV dysfunction noted, she had mild mitral regurgitation, and she had aortic sclerosis. Venous Doppler is negative blood cultures showed Streptococcus Thermophilus, this is a rather unusual organism to see in the blood this is usually seen in probiotics I believe the finding is mostly related to contamination or patient may have another organism, and the streptococcal species Objective - Vital Signs Vital signs: Vital Signs Temp 98.0 F 08/07/24 12:00 Pulse 101 H 08/07/24 12:00 Resp 22 08/07/24 12:00 BP 142/82 08/07/24 12:00 Pulse Ox 97 08/07/24 14:00 FiO2 Intake & Output 08/06/24 08/07/24 08/07/24 18:59 06:59 18:59 Other: Voiding Method Toilet Toilet # Voids 3 - Exam GENERAL EXAM: 1-year-old female in no distress, very pleasant HEAD: Normocephalic. EYES: Normal reaction of pupils, equal size. NOSE: Clear with pink turbinates. THROAT: No erythema or exudates. NECK: No masses, no JVD. CHEST: Clear throughout no crackles rhonchi or wheezes continues to have tenderness over the area of the pacemaker left upper chest wall LUNGS: Equal air entry with crackles in the bilateral bases. CVS: S1 and S2 normal with no audible murmur, regular rhythm. ABDOMEN: No hepatosplenomegaly, normal bowel sounds, no guarding or rigidity. SPINE: No scoliosis or deformity SKIN: Mild rash over trunk and arms CENTRAL NERVOUS SYSTEM: Alert oriented x 3 no gross focal deficit EXTREMITIES: Healing ecchymosis in the right groin area, there is trace peripheral edema. No clubbing, no cyanosis. Peripheral pulses are intact. - Labs CBC & Chem 7: 08/06/24 10:05 08/06/24 10:05 Labs: Abnormal Lab Results - Last 24 Hours (Table) 08/07/24 Range/Units 09:51 POC Glucose (mg/dL) 145 H (70-110) mg/dL Microbiology - Last 24 Hours (Table) 08/05/24 14:53 Blood Culture - Preliminary Blood 08/03/24 11:40 Blood Culture Gram Stain - Final Blood Blood Culture - Final Streptococcus thermophilus Molecular ID Assessment and Plan Assessment: Impression: Acute hypoxic respiratory failure secondary to fluid volume overload with scattered airspace opacities. Differential diagnosis includes pneumonia although she had a normal procalcitonin level also includes diastolic congestive heart failure patient had good LV function noted on previous echocardiogram. Bacteremia secondary to Streptococcus thermophilus of unclear etiology, I suspect this is likely a contamination, repeat blood cultures have been negative patient remains on Rocephin. Again this is not an organism that causes pulmonary infections for Recent atrial fibrillation ablation in June 2024 with ongoing tenderness and ecchymosis of the right groin site Permanent pacemaker implantation in February 2024 with continued and ongoing tenderness at the left subclavian site History of breast cancer treated 2 years ago Mitral valve repair and 2018 History of atrial fibrillation, anticoagulated with Xarelto Hypertension Hyperlipidemia Hypothyroidism Recommendation: Continue present treatment plan Continue antibiotics and diuretics Infectious disease to comment on her unusual organism seen in the blood cultures Continue to titrate FiO2 accordingly Echocardiogram is pending but I was able to review an echocardiogram done at [facility] Cardiology is addressing her cardiac issues Will continue to follow Time with Patient: Less than 30
[2024-08-07] MEDS: AMIODARONE 450 MG in DEXTROSE 5% IN WATER 250 ML IV SCH (16:26)
--- NOTE | 2024-08-07 17:37 | CA ---
Transthoracic Echo Report Name: Veronica Mckeon Age: 69 Gender: F : 1955 Exam Date: 08/06/2024 11:30 Exam Location: [facility] Echo Ht (in): 64 Wt (lb): 240 Ordering Physician: Audrey Santiago Attending/Referring Phys: Dip Brazier Alpa Velez RDCS Procedure CPT: Indications: Positive blood cultures, recent ablation, PPM Cardiac Hx: MV repair Technical Quality: Technically difficult study Contrast 1: Definity Total Dose (mL): 2 Contrast 2: Total Dose (mL): MEASUREMENTS (Male / Female) Normal Values 2D ECHO LV Diastolic Diameter PLAX 3.9 cm 4.2 - 5.9 / 3.9 - 5.3 cm LV Systolic Diameter PLAX 2.5 cm IVS Diastolic Thickness 1.2 cm 0.6 - 1.0 / 0.6 - 0.9 cm LVPW Diastolic Thickness 1.2 cm 0.6 - 1.0 / 0.6 - 0.9 cm LV Relative Wall Thickness 0.6 RV Internal Dim ED PLAX 3.4 cm LA Systolic Diameter LX 4.3 cm 3.0 - 4.0 / 2.7 - 3.8 cm LA Volume 69.4 cm??? 18 - 58 / 22 - 52 cm??? LA Volume Index 30.5 cm???/m??? 16 - 28 cm???/m??? M-MODE Aortic Root Diameter MM 2.8 cm AV Cusp Separation MM 2.2 cm DOPPLER AV Peak Velocity 136.6 cm/s AV Peak Gradient 7.5 mmHg MV Peak Velocity 210.1 cm/s MV Peak Gradient 17.7 mmHg MV Mean Velocity 117.3 cm/s MV Mean Gradient 7.1 mmHg MV Velocity Time Integral 43.8 cm MV Area PHT 2.7 cm??? MV Deceleration Time 215.8 ms TR Peak Velocity 296.3 cm/s TR Peak Gradient 35.1 mmHg Right Ventricular Systolic Press 39.8 mmHg FINDINGS Left Ventricle Left ventricular ejection fraction is estimated at 55-60 %. Left ventricular cavity size normal. Normal left ventricular systolic function with no obvious regional wall motion abnormalities. Mildly increased left ventricular wall thickness. Right Ventricle Mild right ventricular dilatation. Mild pulmonary hypertension. Right Atrium Mild right atrial dilatation. No right atrial thrombus or mass seen. Left Atrium Mildly increased left atrial diameter. Mildly increased left atrial volume. Mildly increased left atrial area. Mitral Valve MV repair. Mean gradient is 7 mmHg. Trace to mild mitral regurgitation. Aortic Valve Trileaflet aortic valve. Aortic valve sclerosis. Thickened aortic valve without stenosis. Tricuspid Valve Structurally normal tricuspid valve. Mild tricuspid regurgitation. Pulmonic Valve Pulmonic valve not well visualized. Trace pulmonic regurgitation. Pericardium No pericardial or pleural effusion. Aorta Normal size aortic root and proximal ascending aorta. CONCLUSIONS Technically difficult study. Definity ECHO contrast used for improved visualization of the endocardial borders (inadequate visualization of two or more contiguous segments). Normal left ventricular size and systolic function Evidence of mitral valve repair with trace to mild mitral regurgitation and a mean gradient of 7 mmHg Mild tricuspid regurgitation with mild pulmonary hypertension Previewed by: Dr. Caro Victor MD (Electronically Signed) Final Date: 07 August 2024 17:36
--- NOTE | 2024-08-07 18:23 | P.PN ---
Progress Note - Text Progress Note Date: 08/07/24 Chief Complaint: Short of breath 69-year-old patient who follows with Dr. Jewel Santiago. Chronic medical conditions include rheumatoid arthritis after sleep apnea hypothyroid atrial fibrillation recent ablation GI bleed because of antral ulcer does not use CPAP. Coronary artery disease with previous bypass. June 07 patient underwent ablation by her truck driving. Procedure lasted for 2 and half hours. Patient was home for 2 days became short of breath. Went to [facility] was admitted there for 4 days for pneumonia. Was sent home. After 3 days again became short of breath was not admitted to [facility] 7 days there for pneumonia. Patient went home. For about a week again patient started having creasing shortness of breath. Cough. Yellow- brown sputum. Some fever. Appetite is fair. Patient is accompanied by her and son in the hospital. Also having chills. Patient started on IV Zosyn in the ER. Having significant cough August 05: Up in a chair. Some decrease in cough. Very slight improvement in shortness of breath. Though still present. On IV Zosyn. Blood cultures positive for Streptococcus [place]. Pending final ID. Repeat blood culture. Patient had a pacemaker placed in February of last year. Has some localized tenderness since then. Also in both the groins has some tenderness since her vascular access for ablation. Consult Dr. Galeas from vascular to evaluate August 06: Patient seen by vascular Dr. Galeas. Doppler ultrasound venous unremarkable. Being followed by cardiology. Antibiotics been switched to IV ceftriaxone. ID is also following. Breathing is a bit better today. Less short of breath. Blood cultures were positive. Repeat blood cultures pending. Immunodeficiency panel came back to be unremarkable August 07: Patient moved to the ICU with overflow with a question about atrial fibrillation. Probable sinus tachycardia. Cardiology has cut the patient on IV amiodarone. Patient still has shortness of breath. Patient's BNP negative. Procalcitonin negative. Patient had a slight rash on IV Zosyn was discontinued. Placed on IV ceftriaxone. Still has some shortness of breath. Being followed by cardiology and pulmonary. Tolerating diet. EKG from today shows sinus tachycardia. Repeat blood culture from August 05 pending. Also being followed by ID. Active Medications Aspirin (Aspirin 81 Mg) 81 mg PO DAILY [facility] Last Admin: 08/07/24 07:57 Dose: 81 mg Atorvastatin Calcium (Atorvastatin 20 Mg Tab) 20 mg PO HS [facility] Last Admin: 08/07/24 00:05 Dose: 20 mg Cholestyramine Resin (Cholestyramine (With Sugar) 4 Gm Packet) 4 gm PO BID@1000,1800 [facility] Last Admin: 08/07/24 12:51 Dose: 4 gm Furosemide (Furosemide 40 Mg Tab) 40 mg PO BID [facility] Last Admin: 08/07/24 07:56 Dose: 40 mg Ceftriaxone Sodium 2 gm/ (Sodium Chloride) 50 mls @ 100 mls/hr IVPB Q24HR [facility]; Protocol Last Admin: 08/07/24 07:57 Dose: 100 mls/hr Amiodarone HCl 450 mg/ (Dextrose/Water) 250 mls @ 16.667 mls/hr IV .Q15H [facility]; Protocol Stop: 08/08/24 09:59 Last Admin: 08/07/24 16:26 Dose: 0.5 mg/min, 16.667 mls/hr Letrozole (Letrozole 2.5 Mg Tab) 2.5 mg PO DAILY [facility] Last Admin: 08/07/24 07:57 Dose: 2.5 mg Levothyroxine Sodium (Levothyroxine 25 Mcg Tab) 25 mcg PO MOTUWE [facility] Last Admin: 08/07/24 06:26 Dose: 25 mcg Levothyroxine Sodium (Levothyroxine 25 Mcg Tab) 50 mcg PO SUTHFRSA [facility] Last Admin: 08/04/24 06:30 Dose: 50 mcg Lisinopril (Lisinopril 5 Mg Tab) 5 mg PO DAILY [facility] Last Admin: 08/07/24 07:56 Dose: 5 mg Methylprednisolone (Methylprednisolone 4 Mg Tab Taper) 24 mg PO DAILY [facility]; Taper Stop: 08/13/24 10:59 Last Admin: 08/07/24 11:15 Dose: 24 mg Metoprolol Tartrate (Metoprolol Tartrate 50 Mg Tab) 50 mg PO BID [facility] Last Admin: 08/07/24 08:32 Dose: 50 mg Miscellaneous Information (Pneumonia Protocol Utilized 1 Each Misc) 1 each PO ONCE PRN PRN Reason: Per Protocol Multivitamins (Multivitamins, Thera 1 Each Tab) 1 each PO DAILY [facility] Last Admin: 08/07/24 07:57 Dose: 1 each Pantoprazole Sodium (Pantoprazole 40 Mg Tablet) 40 mg PO DAILY [facility] Last Admin: 08/07/24 07:56 Dose: 40 mg Potassium Chloride (Potassium Chloride Er 20 Meq Tab.Er) 20 meq PO BID [facility] Last Admin: 08/07/24 07:56 Dose: 20 meq Rivaroxaban (Rivaroxaban 20 Mg Tab) 20 mg PO DAILY@1600 [facility]; Protocol Last Admin: 08/07/24 17:29 Dose: 20 mg Trazodone HCl (Trazodone Hcl 50 Mg Tab) 50 mg PO HS PRN PRN Reason: sleep Social history: Non-smoker. Lives with her . On examination: VITAL SIGNS: 97.8, 109, 16, 129 x 91, 97% on 3 L GENERAL APPEARANCE: BMI 41.2, but short of breath. Some tenderness below the pacemaker site. Overlying skin does not appear inflamed HEENT: Normal external appearance of nose and ear. Oral cavity normal EYES: Pupils equal. Conjunctiva normal. NECK: JVD not raised. Mass not palpable. RESPIRATORY: Respiratory effort increased, fair air entry CARDIOVASCULAR: First and second sounds normal. No edema. ABDOMEN: Soft. Liver and spleen not palpable. No tenderness. No mass palpable. Some tenderness in both the groin. No bruising noted. PSYCHIATRY: Alert and oriented x3. Mood and affect anxious INVESTIGATIONS, reviewed in the clinical context: August 07: White count 10.8 hemoglobin 10.1 potassium 3.8 creatinine 0.72 Venous Doppler for right lower extremity Doppler: Negative for DVT August 06: White count 10.8 hemoglobin 10.1 potassium 3.8 creatinine 0.72 Hepatitis B surface antigen nonreactive, hepatitis C IgG antibody nonreactive, HIV rapid nonreactive August 04: Procalcitonin 0.04 August 03: White count 10.7 hemoglobin 10 platelets 305 sodium 138 potassium 4.2 creatinine 0.6 Troponin I less than 0.012 proBNP 295 Influenza type A, type B, RSV, COVID-19: Not detected. Urine Legionella antigen negative Chest x-ray film personally reviewed by me-scattered infiltrates Chest CTA: Negative PE. Scattered airspace opacities groundglass appearance and consolidative changes. Lymph node is increased in size from September 21, 2023. Mild cardiomegaly. EKG tracing personally reviewed by me-sinus rhythm. Some ST segment depression. Assessment and plan: -Recurrent pneumonia. Patient's had 3 hospitalizations since May 2024. Variable duration. Patient yet again presents with fever cough sputum production. Blood cultures positive for Streptococcus [place], preliminary. Repeat blood cultures pending Immunodeficiency panel: Unremarkable IV Zosyn [questionable rash] changed over to IV ceftriaxone Pulmonary and ID following. -Bilateral tenderness in both the groins at the access site for ablation June 07. See Vascular Dr. Galeas. Signed off. Doppler ultrasound negative for DVT -Sepsis with blood cultures growing cryptococcus [place] Ceftriaxone. Repeat blood cultures pending. -Paroxysmal atrial fibrillation. Patient had ablation done on June 07. Sinus rhythm August 07: Questionable A-fib. IV amiodarone loading being done per cardiology. Lopressor 25 mg twice daily. Xarelto Amiodarone -Essential hypertension Toprol-XL -Obstructive sleep apnea Does not use CPAP -Hypothyroidism: Synthroid to continue -Morbid obesity BMI 41.2 Weight loss measures -GERD Protonix -Full code IV amiodarone. Other medication treatment plan to continue. IV ceftriaxone. Will do a high-resolution CT chest to check for pulmonary fibrosis Past Medical History Past Medical History: Atrial Fibrillation, Chest Pain / Angina, Heart Failure, GI Bleed, Hypertension, Rheumatoid Arthritis (RA), Sleep Apnea/CPAP/BIPAP, Thyroid Disorder Additional Past Medical History / Comment(s): History of atrial fibrillation post-ablation and cardioversions, recent hospitalization for GI bleeds related to a antral ulcer, anemia secondary to GI bleed, vertigo, liver lesion probably a meningioma and the patient will be having an outpatient MRI at a later stage, not currently using CPAP History of Any Multi-Drug Resistant Organisms: MRSA Date of last positivie culture/infection: 06/23/05 MDRO Source:: lt arm Past Surgical History: Appendectomy, Section, Coronary Bypass/CABG, Heart Catheterization, Hysterectomy, Joint Replacement, Orthopedic Surgery, Tubal Ligation Additional Past Surgical History / Comment(s): 7 KNEE SURGERIES= 0NE LEFT KNEE ARTHROSCOPY, and 5 RT KNEE ARTHROSCOPIES THEN TOTAL RT KNEE DONE & THEN TOTAL REVISION TO RT KNEE , PLACIDO. ACHILLES TENDON SURGERY- HAS SCREWS IN PLACIDO. HEELS, EYE SURGERY A CHILD(STRABISMUS), DENTAL IMPLANT BOTTOM LT., COLONOSCOPY, right shoulder sx x2 05/23/18 left thorancentesis. Pacemaker placed Feb 2024 Past Anesthesia/Blood Transfusion Reactions: Previous Problems w/ Anesthesia, Family History of Problems w/ Anesthesia, Postoperative Nausea & Vomiting (PONV) Additional Past Anesthesia/Blood Transfusion Reaction / Comment(s): PT & HER MOTHER HAVE HX PONV Past Psychological History: No Psychological Hx Reported Additional Psychological History / Comment(s): Pt resides with her spouse. She is independent. She uses no assistive device. She drives. Smoking Status: Never smoker Past Alcohol Use History: Rare Past Drug Use History: None Reported
[2024-08-08] MEDS ORDERED: BENZOCAINE SPRAY 1 CAN TOPICAL PRN (08:55)
[2024-08-08] MEDS ORDERED: fentaNYL (PF) 50 MCG/ML 5 ML AMP IVP PRN (08:55)
[2024-08-08] MEDS ORDERED: MIDAZOLAM 2 MG/2 ML VIAL IV PRN (08:55)
--- NOTE | 2024-08-08 09:15 | P.PN ---
Subjective Progress Note Date: 08/08/24 HPI: This is a 69-year-old lady with a history of mitral valve repair in [address] Doe in [place]. She also has a recurrent atrial fibrillation and underwent multiple multiple cardioversions. She also underwent a A-fib ablation that was performed in May. She is here again with atrial fibrillation rapid ventricular rate. She has been taking Xarelto on a regular basis. Currently she is in atrial flutter with a variable rate of about 110 to 120/min on amiodarone drip.. PHYSICIAL EXAM: Vitals are stable JVD 1 cm no carotid bruit S1-S2 with irregularity and rhythm short systolic murmur at the apex lungs are clear abdomen is soft lower extremities reveal palpable pulses no edema Central nervous system is normal. IMPRESSION: 1. Atrial flutter with a variable rate on intravenous amiodarone. 2. S/p mitral valve repair for severe mitral regurgitation in 2017. 3. Status post recent A-fib ablation probably at [facility] in May. 4.. 5.. RECOMMENDATIONS: Continue intravenous amiodarone at 0.5 mg and perform electrical cardioversion tomorrow. Dr. Victor will perform the procedure discussed with the patient she understands the risks benefits options and rationale and wishes to proceed. Echo revealed preserved LV function no significant mitral regurgitation or pulmonary hypertension. Objective - Vital Signs Vital signs: Vital Signs Temp 97.7 F 08/08/24 04:00 Pulse 96 08/08/24 04:00 Resp 14 08/08/24 04:00 BP 132/81 08/08/24 04:00 Pulse Ox 96 08/08/24 04:00 FiO2 Intake & Output 08/07/24 08/08/24 08/08/24 18:59 06:59 18:59 Intake Total 226.116 Balance 226.116 Weight 110.4 kg Intake: Intake, IV Titration 226.116 Amount Amiodarone 450 mg In 226.116 Dextrose 5% in Water 250 ml @ 0.5 MG/MIN 16.667 mls/hr IV .Q15H [facility] Rx#: [id number] Other: Voiding Method Toilet Toilet # Voids 3 # Bowel Movements 1 - Labs CBC & Chem 7: 08/06/24 10:05 08/06/24 10:05 Labs: Abnormal Lab Results - Last 24 Hours (Table) 08/07/24 Range/Units 09:51 POC Glucose (mg/dL) 145 H (70-110) mg/dL Microbiology - Last 24 Hours (Table) 08/05/24 14:53 Blood Culture - Preliminary Blood
--- NOTE | 2024-08-08 10:06 | CT ---
EXAMINATION TYPE: CT chest wo con DATE OF EXAM: 08/08/2024 9:33 AM COMPARISON: 09/21/2023, 08/03/2024 CLINICAL INDICATION: Female, 69 years old with history of Rule out pulmonary fibrosis; PHH, Rule out pulmonary fibrosis. HIGH RESOULTION TECHNIQUE: Multiple axial images of the chest at selected intervals were obtained in prone and supine imaging. Please note that due to interval acquisition images as defined by high-resolution CT protoc ol the entire lung parenchyma is not evaluated, therefore small nodular densities may not be visualiz ed. . MIP was performed on a separate workstation. Contrast used: mL of (None if empty) Oral contrast used: (None if empty) CT DLP: 2011.3 mGycm, Automated exposure control for dose reduction was used. FINDINGS: LUNGS: There is no evidence of interstitial thickening, honeycombing or architectural distortion in t he lungs. No acute area of infiltrative or consolidative change. Scattered groundglass opacities thr oughout the lungs not significantly changed are from 08/03/2024 and new from 09/21/2023. LARGE AIRWAYS: Central airways are patent. No dynamic airway collapse on expiratory imaging. No bronc hiectasis PLEURA: No pleural effusion or thickening. HEART: the heart is mildly enlarged for size. Cardiac conduction leads terminating in the right ventr icle and atrium. MEDIASTINUM: No gross evidence of adenopathy. VASCULATURE: No aortic aneurysm. MUSCULOSKELETAL: No acute osseous abnormalities SOFT TISSUES/LYMPH NODES: Unremarkable. LOWER NECK: No significant findings. UPPER ABDOMEN: No significant findings. IMPRESSION: Motion limited exam 1. No evidence for pulmonary fibrosis, specifically no honeycombing, bronchiectasis, architectural d istortion visualized. 2. Scattered groundglass opacities remain present from prior. Correlate for sequela of prior infecti on with a atypical pneumonia. Continued surveillance in 3 months recommended to ensure resolution. 3. Mild cardiomegaly. [facility], , 08/08/2024 10:04 AM
[2024-08-08 11:32] VITALS: BMI 41.8
--- NOTE | 2024-08-08 12:12 | P.PN ---
Progress Note - Text Progress Note Date: 08/08/24 Chief Complaint: Short of breath 69-year-old patient who follows with Dr. Jewel Santiago. Chronic medical conditions include rheumatoid arthritis after sleep apnea hypothyroid atrial fibrillation recent ablation GI bleed because of antral ulcer does not use CPAP. Coronary artery disease with previous bypass. 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 Procedure lasted for 2 and half hours. Patient was home for 2 days became short of breath. Went to [facility] was admitted there for 4 days for pneumonia. Was sent home. After 3 days again became short of breath was not admitted to [facility] 7 days there for pneumonia. Patient went home. For about a week again patient started having creasing shortness of breath. Cough. Yellow- brown sputum. Some fever. Appetite is fair. Patient is accompanied by her and son in the hospital. Also having chills. Patient started on IV Zosyn in the ER. Having significant cough August 05: Up in a chair. Some decrease in cough. Very slight improvement in shortness of breath. Though still present. On IV Zosyn. Blood cultures positive for Streptococcus Iroquois. Pending final ID. Repeat blood culture. Patient had a pacemaker placed in February of last year. Has some localized tenderness since then. Also in both the groins has some tenderness since her vascular access for ablation. Consult Dr. Galeas from vascular to evaluate August 06: Patient seen by vascular Dr. Galeas. Doppler ultrasound venous unremarkable. Being followed by cardiology. Antibiotics been switched to IV ceftriaxone. ID is also following. Breathing is a bit better today. Less short of breath. Blood cultures were positive. Repeat blood cultures pending. Immunodeficiency panel came back to be unremarkable August 07: Patient moved to the ICU with overflow with a question about atrial fibrillation. Probable sinus tachycardia. Cardiology has cut the patient on IV amiodarone. Patient still has shortness of breath. Patient's BNP negative. Procalcitonin negative. Patient had a slight rash on IV Zosyn was discontinued. Placed on IV ceftriaxone. Still has some shortness of breath. Being followed by cardiology and pulmonary. Tolerating diet. EKG from today shows sinus tachycardia. Repeat blood culture from August 05 pending. Also being followed by ID. Generally 16: ICU. Seen by cardiology Dr. JEAN Riojas. Remains in a flutter fib. Rate 100+. Plan for CORINNE and cardioversion tomorrow. Patient is pending a high-resolution CT chest rule out any fibrotic component. Remains on IV amiodarone. 3 L of oxygen. Cough is much improved. Active Medications Aspirin (Aspirin 81 Mg) 81 mg PO DAILY PENDING SALE TO [facility] Last Admin: 08/08/24 08:53 Dose: 81 mg Atorvastatin Calcium (Atorvastatin 20 Mg Tab) 20 mg PO HS PENDING SALE TO [facility] Last Admin: 08/07/24 20:39 Dose: 20 mg Benzocaine (Benzocaine Corona 1 Can) 1 spray TOPICAL TID PRN PRN Reason: Skin Irritation Cholestyramine Resin (Cholestyramine (With Sugar) 4 Gm Packet) 4 gm PO BID@1000,1800 PENDING SALE TO [facility] Last Admin: 08/08/24 11:32 Dose: 4 gm Fentanyl Citrate (Fentanyl (Pf) 50 Mcg/Ml 5 Ml Amp) 50 mcg IVP ONCE PRN PRN Reason: Pre-Op Stop: 08/09/24 02:55 Furosemide (Furosemide 40 Mg Tab) 40 mg PO BID PENDING SALE TO [facility] Last Admin: 08/08/24 08:52 Dose: 40 mg Ceftriaxone Sodium 2 gm/ (Sodium Chloride) 50 mls @ 100 mls/hr IVPB Q24HR PENDING SALE TO [facility]; Protocol Last Admin: 08/08/24 10:03 Dose: 100 mls/hr Amiodarone HCl 450 mg/ (Dextrose/Water) 250 mls @ 16.667 mls/hr IV .Q15H PENDING SALE TO [facility]; Protocol Letrozole (Letrozole 2.5 Mg Tab) 2.5 mg PO DAILY PENDING SALE TO [facility] Last Admin: 08/08/24 08:53 Dose: 2.5 mg Levothyroxine Sodium (Levothyroxine 25 Mcg Tab) 25 mcg PO MOTUWE PENDING SALE TO [facility] Last Admin: 08/07/24 06:26 Dose: 25 mcg Levothyroxine Sodium (Levothyroxine 25 Mcg Tab) 50 mcg PO SUTHFRSA PENDING SALE TO [facility] Last Admin: 08/08/24 05:59 Dose: 50 mcg Lisinopril (Lisinopril 5 Mg Tab) 5 mg PO DAILY PENDING SALE TO [facility] Last Admin: 08/08/24 08:53 Dose: 5 mg Methylprednisolone (Methylprednisolone 4 Mg Tab Taper) 20 mg PO DAILY PENDING SALE TO [facility]; Taper Stop: 08/13/24 10:59 Last Admin: 08/08/24 08:54 Dose: 24 mg Metoprolol Tartrate (Metoprolol Tartrate 50 Mg Tab) 50 mg PO BID PENDING SALE TO [facility] Last Admin: 08/08/24 08:53 Dose: 50 mg Midazolam HCl (Midazolam 2 Mg/2 Ml Vial) 1 mg IV ONCE PRN PRN Reason: Pre-Op Stop: 08/09/24 02:55 Miscellaneous Information (Pneumonia Protocol Utilized 1 Each Misc) 1 each PO ONCE PRN PRN Reason: Per Protocol Multivitamins (Multivitamins, Thera 1 Each Tab) 1 each PO DAILY PENDING SALE TO [facility] Last Admin: 08/08/24 08:52 Dose: 1 each Pantoprazole Sodium (Pantoprazole 40 Mg Tablet) 40 mg PO DAILY PENDING SALE TO [facility] Last Admin: 08/08/24 08:53 Dose: 40 mg Potassium Chloride (Potassium Chloride Er 20 Meq Tab.Er) 20 meq PO BID PENDING SALE TO [facility] Last Admin: 08/08/24 08:52 Dose: 20 meq Rivaroxaban (Rivaroxaban 20 Mg Tab) 20 mg PO DAILY@1600 PENDING SALE TO [facility]; Protocol Last Admin: 08/07/24 17:29 Dose: 20 mg Trazodone HCl (Trazodone Hcl 50 Mg Tab) 50 mg PO HS PRN PRN Reason: sleep Social history: Non-smoker. Lives with her . On examination: VITAL SIGNS: 98.6, 117, 18, 145 x 86, 98% on 3 L GENERAL APPEARANCE: BMI 41.2, breathing better. Some tenderness below the pacemaker site. Overlying skin does not appear inflamed HEENT: Normal external appearance of nose and ear. Oral cavity normal EYES: Pupils equal. Conjunctiva normal. NECK: JVD not raised. Mass not palpable. RESPIRATORY: Respiratory effort increased, fair air entry CARDIOVASCULAR: First and second sounds normal. No edema. ABDOMEN: Soft. Liver and spleen not palpable. No tenderness. No mass palpable. Some tenderness in both the groin. No bruising noted. PSYCHIATRY: Alert and oriented x3. Mood and affect anxious INVESTIGATIONS, reviewed in the clinical context: August 07: White count 10.8 hemoglobin 10.1 potassium 3.8 creatinine 0.72 Venous Doppler for right lower extremity Doppler: Negative for DVT August 06: White count 10.8 hemoglobin 10.1 potassium 3.8 creatinine 0.72 Hepatitis B surface antigen nonreactive, hepatitis C IgG antibody nonreactive, HIV rapid nonreactive August 04: Procalcitonin 0.04 August 03: White count 10.7 hemoglobin 10 platelets 305 sodium 138 potassium 4.2 creatinine 0.6 Troponin I less than 0.012 proBNP 295 Influenza type A, type B, RSV, COVID-19: Not detected. Urine Legionella antigen negative Chest x-ray film personally reviewed by me-scattered infiltrates Chest CTA: Negative PE. Scattered airspace opacities groundglass appearance and consolidative changes. Lymph node is increased in size from September 21, 2023. Mild cardiomegaly. EKG tracing personally reviewed by me-sinus rhythm. Some ST segment depression. Assessment and plan: -Recurrent pneumonia. Patient's had 3 hospitalizations since May 2024. Variable duration. Patient yet again presents with fever cough sputum production. Blood cultures positive for Streptococcus Iroquois, preliminary. Repeat blood cultures pending Immunodeficiency panel: Unremarkable IV Zosyn [questionable rash] changed over to IV ceftriaxone Pulmonary and ID following. -Bilateral tenderness in both the groins at the access site for ablation June 07. See Vascular Dr. Galeas. Signed off. Doppler ultrasound negative for DVT -Sepsis with blood cultures growing cryptococcus Iroquois Ceftriaxone. Repeat blood cultures pending. -Paroxysmal atrial fibrillation and atrial tachycardia. Patient had ablation done on June 07. Rate uncontrolled On IV amiodarone since yesterday. Plan for CORINNE with cardioversion tomorrow Lopressor 25 mg twice daily. Xarelto Amiodarone -Essential hypertension Toprol-XL -Obstructive sleep apnea Does not use CPAP -Hypothyroidism: Synthroid to continue -Morbid obesity BMI 41.2 Weight loss measures -GERD Protonix -Full code IV amiodarone. 3 times oxygen. Pending high-resolution CT chest. IV ceftriaxone. Repeat blood cultures still pending. Past Medical History Past Medical History: Atrial Fibrillation, Chest Pain / Angina, Heart Failure, GI Bleed, Hypertension, Rheumatoid Arthritis (RA), Sleep Apnea/CPAP/BIPAP, Thyroid Disorder Additional Past Medical History / Comment(s): History of atrial fibrillation post-ablation and cardioversions, recent hospitalization for GI bleeds related to a antral ulcer, anemia secondary to GI bleed, vertigo, liver lesion probably a meningioma and the patient will be having an outpatient MRI at a later stage, not currently using CPAP History of Any Multi-Drug Resistant Organisms: MRSA Date of last positivie culture/infection: 06/23/05 MDRO Source:: lt arm Past Surgical History: Appendectomy, Section, Coronary Bypass/CABG, Heart Catheterization, Hysterectomy, Joint Replacement, Orthopedic Surgery, Tubal Ligation Additional Past Surgical History / Comment(s): 7 KNEE SURGERIES= 0NE LEFT KNEE ARTHROSCOPY, and 5 RT KNEE ARTHROSCOPIES THEN TOTAL RT KNEE DONE & THEN TOTAL RE VISION TO RT KNEE , PLACIDO. ACHILLES TENDON SURGERY- HAS SCREWS IN PLACIDO. HEELS, EYE SURGERY A CHILD(STRABISMUS), DENTAL IMPLANT BOTTOM LT., COLONOSCOPY, right shoulder sx x2 05/23/18 left thorancentesis. Pacemaker placed Feb 2024 Past Anesthesia/Blood Transfusion Reactions: Previous Problems w/ Anesthesia, Family History of Problems w/ Anesthesia, Postoperative Nausea & Vomiting (PONV) Additional Past Anesthesia/Blood Transfusion Reaction / Comment(s): PT & HER MOTHER HAVE HX PONV Past Psychological History: No Psychological Hx Reported Additional Psychological History / Comment(s): Pt resides with her spouse. She is independent. She uses no assistive device. She drives. Smoking Status: Never smoker Past Alcohol Use History: Rare Past Drug Use History: None Reported
--- NOTE | 2024-08-08 13:39 | P.PN ---
Subjective Progress Note Date: 08/08/24 Principal diagnosis: Possible pneumonia, suspect acute diastolic congestive heart failure, gram- positive bacteremia however felt to be more of a contamination with Streptococcus Thermophilus This is a 69-year-old female patient with a known history of mitral valve repair in 2017, breast cancer approximately 2 years ago, atrial fibrillation anticoagulated with Xarelto, congestive heart failure, hyperlipidemia, hypothyroidism. She had a permanent pacemaker implanted in February 2024 and has had ongoing issues with severe tenderness at the left subclavian pacemaker site,. She had undergone an atrial fibrillation ablation back on July 07, 2024. She had complications with possible hematoma in the right groin. She was home for approximately 2 days and then went to [facility] and was hospitalized for 4 days for possible pneumonia. She was home again for 3-1/[address] [facility] and was subsequently transferred to [facility] and was there for 7 days and treated for possible pneumonia. 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 She was home for 1 week and then presented here with continued complaints of shortness of breath cough and congestion. Chest x-ray reveals evidence of fluid volume overload. CT angiogram ruled out pulmonary embolism. There is scattered airspace opacities of the lung groundglass appearance and airspace consolidation changes. Mild cardiomegaly with some pulmonary vascular congestion. EKG reveals sinus rhythm. White count 10.7. Hemoglobin 10.0. Platelets 305. Sodium 138. Potassium 4.2. Bicarb 26. BUN 13. Creatinine 0.64. Glucose 115. Viral screen is negative. Procalcitonin is also negative at 0.04. She is seen today in consultation on the regular medical floor. She is currently sitting up in bed. Awake and alert in no acute distress. She is requiring 5 L of nasal cannula however her O2 saturations are 9899%. She has been afebrile. Slightly tachycardic. Blood culture is showing gram-positive cocci in pairs and chains. Streptococcus species. She has been initiated on Zosyn. Continued on oral diuretics. Home medications resumed. Remains on Xarelto. The patient is seen today August 06, 2024 in follow-up on the regular medical floor. She is currently sitting up at the bedside. Awake and alert in no acute distress. Denies any worsening cough or congestion. No phlegm production. Maintaining O2 saturations up to 100% on 5 L/min per nasal cannula. Tachy cardic. Procalcitonin was negative at 0.04. Doppler of the right lower extremity was negative for DVT. Blood culture revealing Streptococcus Thermophilus. White count 10.8. Hemoglobin 10.1. Sodium 138. Potassium 3.8. Bicarb 29. BUN 13. Creatinine 0.72. Glucose 116. She remains on ceftriaxone. Anticoagulated with Xarelto. Echocardiogram pending. Patient on 08/07/2024, patient is on 3 L nasal cannula, feeling better, remains on antibiotics and she is also on diuretics, chest x-ray is showing slight improvement but nonetheless continues to show bilateral interstitial infiltrates/possible interstitial edema. Although her BNP level was normal and her procalcitonin level was also normal. Patient did receive initially Rocephin and Zosyn, however she developed a rash felt to be most likely related to Zosyn. This has been discontinued. Patient was transferred to [facility]. ended up in the ICU as an overflow with sinus tachycardia, felt to be possible atrial fibrillation, I reviewed the rhythm strip, seems to be mostly sinus tachycardia. Clinically the patient is feeling better, breathing easier, nonetheless remains on 3 L nasal cannula. Labs today were reviewed again WBC count is 10.8 hemoglobin 10.1 electrolytes are normal renal profile is normal hepatitis screen is negative HIV screen is negative urine Legionella is negative procalcitonin level is 0.04 and BNP level is normal, echocardiogram is normal however reviewed the echocardiogram done at [facility] was normal, no LV dysfunction noted, she had mild mitral regurgitation, and she had aortic sclerosis. Venous Doppler is negative blood cultures showed Streptococcus Thermophilus, this is a rather unusual organism to see in the blood this is usually seen in probiotics I believe the finding is mostly related to contamination or patient may have another organism, and the streptococcal species Patient was seen today on 08/08/2024, patient remains in the ICU, feeling better, she is only on 3 L nasal cannula does not seem to be in any distress, CT of the chest was done yesterday continues to show some groundglass opacities bilaterally, no evidence of interstitial lung disease, no evidence of fibrosis, the findings on the CT of the chest are nonspecific. Nonetheless she definitely has abnormal CT of the chest with groundglass opacities bilaterally. Clinically the patient is feeling better, remains on Rocephin she is also on Medrol Dosepak she is on Xarelto and on Lasix twice daily. Cardiology is planning cardioversion on this patient today. Blood cultures/follow-up blood cultures have shown no growth in the last 48 hours. Patient remains on amiodarone at 0.5 mg/min. As far as her initial positive blood cultures, these are being addressed by infectious disease on the case, and I am not certain that the patient truly had true bacteremia especially with organism being Streptococcus Thermophilus at any rate we will continue antibiotics, and will continue diuretics for now. Patient tested negative for hepatitis B hepatitis C HIV and urine Legionella antigen. Objective - Vital Signs Vital signs: Vital Signs Temp 98.6 F 08/08/24 08:00 Pulse 117 H 08/08/24 08:00 Resp 18 08/08/24 08:00 BP 145/86 08/08/24 08:00 Pulse Ox 98 08/08/24 08:00 FiO2 Intake & Output 08/07/24 08/08/24 08/08/24 18:59 06:59 18:59 Intake Total 226.116 Balance 226.116 Weight 110.4 kg 110.4 kg Intake: Intake, IV Titration 226.116 Amount Amiodarone 450 mg In 226.116 Dextrose 5% in Water 250 ml @ 0.5 MG/MIN 16.667 mls/hr IV .Q15H [facility] Rx#: [id number] Other: Voiding Method Toilet Toilet # Voids 3 # Bowel Movements 1 - Exam GENERAL EXAM: 69-year-old female in no distress, very pleasant HEAD: Normocephalic. EYES: Normal reaction of pupils, equal size. NOSE: Clear with pink turbinates. THROAT: No erythema or exudates. NECK: No masses, no JVD. CHEST: Clear throughout no crackles rhonchi or wheezes LUNGS: Equal air entry with crackles in the bilateral bases. CVS: S1 and S2 normal with no audible murmur, regular rhythm. ABDOMEN: No hepatosplenomegaly, normal bowel sounds, no guarding or rigidity. SPINE: No scoliosis or deformity SKIN: Continues to have rash bilaterally throughout, felt to be related to possibly Zosyn which has been discontinued and the patient is on Medrol Dosepak CENTRAL NERVOUS SYSTEM: Alert oriented x 3 no gross focal deficit EXTREMITIES: Healing ecchymosis in the right groin area, there is trace peripheral edema. No clubbing, no cyanosis. Peripheral pulses are intact. - Labs CBC & Chem 7: 08/06/24 10:05 08/06/24 10:05 Labs: Microbiology - Last 24 Hours (Table) 08/05/24 14:53 Blood Culture - Preliminary Blood Assessment and Plan Assessment: Impression: Acute hypoxic respiratory failure secondary to fluid volume overload with scattered airspace opacities. Differential diagnosis includes pneumonia although she had a normal procalcitonin level also includes diastolic congestive heart failure patient had good LV function noted on previous echocardiogram. Bacteremia secondary to Streptococcus thermophilus of unclear etiology, I suspect this is likely a contamination, repeat blood cultures have been negative patient remains on Rocephin. Again this is not an organism that causes pulmonary infections for Recent atrial fibrillation ablation in June 2024 with ongoing tenderness and ecchymosis of the right groin site Permanent pacemaker implantation in February 2024 with continued and ongoing tenderness at the left subclavian site History of breast cancer treated 2 years ago Mitral valve repair and 2017 History of atrial fibrillation, anticoagulated with Xarelto Hypertension Hyperlipidemia Hypothyroidism Recommendation: CT of the chest was reviewed patient does have groundglass opacities bilaterally, nonspecific Continue present supportive care measures Patient will have CORINNE and cardioversion today per cardiology Continue antibiotics and diuretics Infectious disease to comment on her unusual organism seen in the blood cultures Echocardiogram was reviewed and does not seem to be any different from her previous echocardiogram report Cardiology is addressing her cardiac issues Will continue to follow Time with Patient: Less than 30
[2024-08-08] MEDS: AMIODARONE 450 MG in DEXTROSE 5% IN WATER 250 ML IV SCH (20:21)
[2024-08-08] MEDS: traZODone HCL 50 MG TAB PO PRN (20:56)
[2024-08-09] MEDS ORDERED: PROPOFOL 10 MG/ML 20 ML VIAL IV ONE (07:41)
[2024-08-09] MEDS: IV FLUID CONTINUATION 1,000 ML IV ONE (07:49)
--- NOTE | 2024-08-09 08:14 | P.PCN ---
Date of Procedure: 08/09/24 Description of Procedure: Indication: Atrial fibrillationflutter Procedure Description: After explaining the procedure to the patient, it's risk and complications, blood pressure, heart rate and O2 saturation were monitored. The throat was sprayed with Cetacaine. Patient received sedation per anesthesia department. The probe was introduced into the esophagus without difficulty. Images were obtained. Following that, the probe was removed. There was no immediate complication. Findings: Left atrial size is moderately dilated, left atrial appendage is normal. Left ventricular size and systolic function are normal. Evidence of mitral valve repair was noted with mitral valve annuloplasty. The aortic valve revealed mild fibrocalcific changes of the aortic cusps with preserved opening. The tricuspid and pulmonic valve appears to be normal. Descending thoracic aorta appears to be normal. Contrast bubble study revealed no shunting across the interatrial septum. No pericardial effusion was noted. A wire was noted in the right ventricle Doppler: Pulse wave and color Doppler were obtained, and revealed mild central mitral regurgitation and tricuspid regurgitation. There was no shunting across the interatrial septum. Conclusion: 1. Dilated left atrium with normal appearance of the left atrial appendage 2. Normal ventricle size and systolic function 3. Mitral valve annuloplasty with mild mitral regurgitation 4. Mild tricuspid regurgitation 5. No shunting across the interatrial septum Cardioversion: After obtaining CORINNE and sedated state per anesthesia department a synchronized biphasic cardioversion using 200 J was performed with lutheran of sinus mechanism. There was no immediate complications.
[2024-08-09] MEDS: AMIODARONE 200 MG TAB PO SCH (09:11)
[2024-08-09] MEDS: SODIUM CHLORIDE 0.9% 1,000 ML IV SCH (09:25)
[2024-08-09 13:34] VITALS: BP 131/67; PULSE 74; RESP 17; TEMP 97.7
--- NOTE | 2024-08-09 14:22 | P.PN ---
Subjective Progress Note Date: 08/09/24 Principal diagnosis: Possible pneumonia, suspect acute diastolic congestive heart failure, gram- positive bacteremia however felt to be more of a contamination with Streptococcus Thermophilus This is a 69-year-old female patient with a known history of mitral valve repair in 2017, breast cancer approximately 2 years ago, atrial fibrillation anticoagulated with Xarelto, congestive heart failure, hyperlipidemia, hypothyroidism. She had a permanent pacemaker implanted in February 2024 and has had ongoing issues with severe tenderness at the left subclavian pacemaker site,. She had undergone an atrial fibrillation ablation back on July 07, 2024. She had complications with possible hematoma in the right groin. She was home for approximately 2 days and then went to [facility] and was hospitalized for 4 days for possible pneumonia. She was home again for 3-1/2 days then went to [facility] and was subsequently transferred to [facility] and was there for 7 days and treated for possible pneumonia. 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 She was home for 1 week and then presented here with continued complaints of shortness of breath cough and congestion. Chest x-ray reveals evidence of fluid volume overload. CT angiogram ruled out pulmonary embolism. There is scattered airspace opacities of the lung groundglass appearance and airspace consolidation changes. Mild cardiomegaly with some pulmonary vascular congestion. EKG reveals sinus rhythm. White count 10.7. Hemoglobin 10.0. Platelets 305. Sodium 138. Potassium 4.2. Bicarb 26. BUN 13. Creatinine 0.64. Glucose 115. Viral screen is negative. Procalcitonin is also negative at 0.04. She is seen today in consultation on the regular medical floor. She is currently sitting up in bed. Awake and alert in no acute distress. She is requiring 5 L of nasal cannula however her O2 saturations are 9899%. She has been afebrile. Slightly tachycardic. Blood culture is showing gram-positive cocci in pairs and chains. Streptococcus species. She has been initiated on Zosyn. Continued on oral diuretics. Home medications resumed. Remains on Xarelto. The patient is seen today August 06, 2024 in follow-up on the regular medical floor. She is currently sitting up at the bedside. Awake and alert in no acute distress. Denies any worsening cough or congestion. No phlegm production. Maintaining O2 saturations up to 100% on 5 L/min per nasal cannula. Tachy cardic. Procalcitonin was negative at 0.04. Doppler of the right lower extremity was negative for DVT. Blood culture revealing Streptococcus Thermophilus. White count 10.8. Hemoglobin 10.1. Sodium 138. Potassium 3.8. Bicarb 29. BUN 13. Creatinine 0.72. Glucose 116. She remains on ceftriaxone. Anticoagulated with Xarelto. Echocardiogram pending. Patient on 08/07/2024, patient is on 3 L nasal cannula, feeling better, remains on antibiotics and she is also on diuretics, chest x-ray is showing slight improvement but nonetheless continues to show bilateral interstitial infiltrates/possible interstitial edema. Although her BNP level was normal and her procalcitonin level was also normal. Patient did receive initially Rocephin and Zosyn, however she developed a rash felt to be most likely related to Zosyn. This has been discontinued. Patient was transferred to [facility]. ended up in the ICU as an overflow with sinus tachycardia, felt to be possible atrial fibrillation, I reviewed the rhythm strip, seems to be mostly sinus tachycardia. Clinically the patient is feeling better, breathing easier, nonetheless remains on 3 L nasal cannula. Labs today were reviewed again WBC count is 10.8 hemoglobin 10.1 electrolytes are normal renal profile is normal hepatitis screen is negative HIV screen is negative urine Legionella is negative procalcitonin level is 0.04 and BNP level is normal, echocardiogram is normal however reviewed the echocardiogram done at [facility] was normal, no LV dysfunction noted, she had mild mitral regurgitation, and she had aortic sclerosis. Venous Doppler is negative blood cultures showed Streptococcus Thermophilus, this is a rather unusual organism to see in the blood this is usually seen in probiotics I believe the finding is mostly related to contamination or patient may have another organism, and the streptococcal species Patient was seen today on 08/08/2024, patient remains in the ICU, feeling better, she is only on 3 L nasal cannula does not seem to be in any distress, CT of the chest was done yesterday continues to show some groundglass opacities bilaterally, no evidence of interstitial lung disease, no evidence of fibrosis, the findings on the CT of the chest are nonspecific. Nonetheless she definitely has abnormal CT of the chest with groundglass opacities bilaterally. Clinically the patient is feeling better, remains on Rocephin she is also on Medrol Dosepak she is on Xarelto and on Lasix twice daily. Cardiology is planning cardioversion on this patient today. Blood cultures/follow-up blood cultures have shown no growth in the last 48 hours. Patient remains on amiodarone at 0.5 mg/min. As far as her initial positive blood cultures, these are being addressed by infectious disease on the case, and I am not certain that the patient truly had true bacteremia especially with organism being Streptococcus Thermophilus at any rate we will continue antibiotics, and will continue diuretics for now. Patient tested negative for hepatitis B hepatitis C HIV and urine Legionella antigen. Patient was seen today on 08/09/2024, patient remains in the ICU as an overflow, she is doing great, underwent cardioversion today and she is now in sinus rhythm. Patient is comfortable, not in any distress, feels better as a matter fact compared to how she felt when she came in. She is on 3 L nasal cannula, O2 saturation 99%, blood pressure is 131/67 heart rate is 78. No chest x-ray was done today, patient was seen by her admitting physician, and he is considering discharging the patient home, I believe that is agreeable as long as cardiology will clear the patient for discharge today, patient had her cardioversion today. WBC count is 10.8 hemoglobin is 10.1 electrolytes are normal renal profile is normal Objective - Vital Signs Vital signs: Vital Signs Temp 97.7 F 08/09/24 12:30 Pulse 74 08/09/24 12:30 Resp 17 08/09/24 12:30 BP 131/67 08/09/24 12:30 Pulse Ox 99 08/09/24 12:30 FiO2 Intake & Output 08/08/24 08/09/24 08/09/24 18:59 06:59 18:59 Intake Total 1000 540 Balance 1000 540 Weight 110.4 kg 110.3 kg Intake: Oral 1000 540 Other: Voiding Method Toilet Toilet Toilet # Voids 4 3 2 - Exam GENERAL EXAM: 69-year-old female in no distress, very pleasant HEAD: Normocephalic. EYES: Normal reaction of pupils, equal size. NOSE: Clear with pink turbinates. THROAT: No erythema or exudates. NECK: No masses, no JVD. CHEST: Clear throughout no crackles rhonchi or wheezes LUNGS: Equal air entry with crackles in the bilateral bases. CVS: S1 and S2 normal with no audible murmur, regular rhythm. ABDOMEN: No hepatosplenomegaly, normal bowel sounds, no guarding or rigidity. SKIN: Rash seems to be improving with Medrol Dosepak CENTRAL NERVOUS SYSTEM: Alert oriented x 3 no gross focal deficit EXTREMITIES: Healing ecchymosis in the right groin area, there is trace peripheral edema. No clubbing, no cyanosis. Peripheral pulses are intact. - Labs CBC & Chem 7: 08/06/24 10:05 08/06/24 10:05 Labs: Microbiology - Last 24 Hours (Table) 08/05/24 14:53 Blood Culture - Preliminary Blood Assessment and Plan Assessment: Impression: Acute hypoxic respiratory failure secondary to fluid volume overload with scattered airspace opacities. Differential diagnosis includes pneumonia although she had a normal procalcitonin level also includes diastolic congestive heart failure patient had good LV function noted on previous echocardiogram. Bacteremia secondary to Streptococcus thermophilus of unclear etiology, I suspec t this is likely a contamination, repeat blood cultures have been negative patient remains on Rocephin. Again this is not an organism that causes pulmonary infections for Recent atrial fibrillation ablation in June 2024 with ongoing tenderness and ecchymosis of the right groin site Permanent pacemaker implantation in February 2024 with continued and ongoing tenderness at the left subclavian site History of breast cancer treated 2 years ago Mitral valve repair and 2018 History of atrial fibrillation, anticoagulated with Xarelto Hypertension Hyperlipidemia Hypothyroidism Patient is status post CORINNE and cardioversion Recommendation: Continue present supportive care measures Could consider stopping antibiotics again I am not quite convinced that the patient actually had pneumonia with a relatively normal procalcitonin level, the findings on the chest x-ray may be postinflammatory from previous infection will need follow-up CT of the chest on outpatient basis in 1 month for follow-up ch est x-ray in a couple of weeks. Infectious disease to comment on her unusual organism seen in the blood cultures Cardiology to clear patient for discharge prior to discharging the patient home and she should follow-up with her anatomical embalmer. Will continue to follow Time with Patient: Less than 30
--- NOTE | 2024-08-09 14:58 | P.PN ---
Subjective Progress Note Date: 08/09/24 Principal diagnosis: Reason for follow-up is a positive blood culture Patient is a 69-year-old female with a past medical history significant for atrial fibrillation heart failure hypertension rheumatoid arthritis sleep apnea patient did have pacemaker placement in 2023 and apparently the patient did have a cardiac ablation procedure subsequently admission to [facility] followed by [facility] apparently has been treated for possible pneumonia patient did have a positive blood culture at [facility] which was positive for coagulase-negative staph and Streptococcus viridans not being admitted the hospital for increasing shortness of breath ID consulted because of positive blood culture. On today's evaluation that is 08/09/2024, the patient continues to be afebrile, the patient is on 3 L nasal cannula oxygen and breathing comfortably, the Pt denies having any chest pain and cough is decreased intensity mostly dry in nature, the patient denies having any abdominal pain no vomiting or any diarrhea has been reported by the nursing staff. No lab draw today blood culture repeat has been negative Objective - Vital Signs Vital signs: Vital Signs Temp 98.4 F 08/09/24 04:00 Pulse 71 08/09/24 10:00 Resp 18 08/09/24 09:15 BP 129/74 08/09/24 10:00 Pulse Ox 96 08/09/24 09:15 FiO2 Intake & Output 08/08/24 08/09/24 08/09/24 18:59 06:59 18:59 Intake Total 1000 540 0 Balance 1000 540 0 Weight 110.4 kg 110.3 kg Intake: IV 0 Oral 1000 540 Other: Voiding Method Toilet Toilet # Voids 4 3 - Exam GENERAL DESCRIPTION: An elderly female up in bed in no distress RESPIRATORY SYSTEM: Unlabored breathing , coarse breath sounds bilaterally HEART: S1 S2 regular rate and rhythm , ABDOMEN: Soft , no tenderness EXTREMITIES: No edema feet - Labs CBC & Chem 7: 08/06/24 10:05 08/06/24 10:05 Labs: Microbiology - Last 24 Hours (Table) 08/05/24 14:53 Blood Culture - Preliminary Blood Assessment and Plan (1) Bacteremia Current Visit: Yes Status: Acute Code(s): R78.81 - BACTEREMIA SNOMED Co de(s): 2386955 Plan: 1patient with the streptococcal bacteremia and this patient apparently did have similar symptoms and admission at [facility] patient also have a bacteremia however she is not clear about the type of blood infection, we did obtain records from [facility] positive blood culture was coagulase-negative staph and strep viridans only 1 set of blood culture were done 2-blood culture has been repeated which are currently pending and echocardiogram did not show any vegetation, patient have a CT of the chest some groundglass op acity no consolidation 3-patient blood culture repeat has been negative, did not have any fever or e levated white count and no clinical focus for this positive blood culture more likely presenting contamination and antibiotics can be discontinued discussed with the admitting physician working on discharge and explained to the patient in layman term all questions answered Dictation was produced using [employer] dictation software. please excuse any grammatical, word or spelling errors. Time with Patient: Less than 30
--- NOTE | 2024-08-09 16:26 | P.DS ---
Providers Date of admission: 08/03/24 14:39 Expected date of discharge: 08/09/24 Attending physician: Lucas Krishna Consults: 08/04/24 16:34 Consult Physician Routine Consulting Provider: Judi Gray Consult Reason/Comments: Recurrent pneumonia Do you want consulting provider notified?: Yes 08/05/24 10:39 Consult Physician Routine Consulting Provider: Srinivasa Vidal Consult Reason/Comments: Recent PPM, ablatioin. Positive blood cultures Do you want consulting provider notified?: Yes 08/05/24 10:40 Consult Physician Routine Consulting Provider: Bhavya Luz Consult Reason/Comments: Positive blood cultures Do you want consulting provider notified?: Yes [facility] Course: Chief Complaint: Short of breath 69-year-old patient who follows with Dr. Jewel Santiago. Chronic medical conditions include rheumatoid arthritis after sleep apnea hypothyroid atrial fibrillation recent ablation GI bleed because of antral ulcer does not use CPAP. Coronary artery disease with previous bypass. June 07 patient underwent ablation by her legal word processor. Procedure lasted for 2 and half hours. Patient was home for 2 days became short of breath. Went to [facility] was admitted there for 4 days for pneumonia. Was sent home. After 3 days again became short of breath was not admitted to [facility] [place] 7 days there for pneumonia. Patient went home. For about a week again patient started having creasing shortness of breath. Cough. Yellow-brown sputum. Some fever. Appetite is fair. Patient is accompanied by her and son in the hospital. Also having chills. Patient started on IV Zosyn in the ER. Having significant cough August 05: Up in a chair. Some decrease in cough. Very slight improvement in shortness of breath. Though still present. On IV Zosyn. Blood cultures positive for Streptococcus [place]wood. Pending final ID. Repeat blood culture. Patient had a pacemaker placed in February of last year. Has some localized tenderness since then. Also in both the groins has some tenderness since her vascular access for ablation. Consult Dr. Galeas from vascular to evaluate August 06: Patient seen by vascular Dr. Galeas. Doppler ultrasound venous unremarkable. Being followed by cardiology. Antibiotics been switched to IV ceftriaxone. ID is also following. Breathing is a bit better today. Less short of breath. Blood cultures were positive. Repeat blood cultures pending. Immunodeficiency panel came back to be unremarkable August 07: Patient moved to the ICU with overflow with a question about atrial fibrillation. Probable sinus tachycardia. Cardiology has cut the patient on IV amiodarone. Patient still has shortness of breath. Patient's BNP negative. Procalcitonin negative. Patient had a slight rash on IV Zosyn was discontinued. Placed on IV ceftriaxone. Still has some shortness of breath. Being followed by cardiology and pulmonary. Tolerating diet. EKG from today shows sinus tachycardia. Repeat blood culture from August 05 pending. Also being followed by ID. August 08: ICU. Seen by cardiology Dr. JEAN Riojas. Remains in a flutter fib. Rate 100+. Plan for CORINNE and cardioversion tomorrow. Patient is pending a high-resolution CT chest rule out any fibrotic component. Remains on IV amiodarone. 3 L of oxygen. Cough is much improved. August 09: ICU. Breathing better. Remains on 3 L of oxygen. Patient underwent CORINNE with cardioversion today. Sinus rhythm. High-resolution CT chest did not show any fibrosis. Some groundglass appearance. Discussed with Dr. Tipton. Reinaldoay to discharge follow-up with Dr. Gray. Also spoke to Dr. Park from ID. No need for further antibiotics. Patient will follow-up with her own skidway worker and legal word processor. Continue Xarelto. Amiodarone. Patient blood cultures felt to be possible contaminant. Discussion and discharge planning more than 35 minutes Social history: Non-smoker. Lives with her . On examination: VITAL SIGNS: 97.7, 74, 17, 131 x 67, 99% on 3 L GENERAL APPEARANCE: BMI 41.2, breathing much better r. Some tenderness below the pacemaker site. Overlying skin does not appear inflamed HEENT: Normal external appearance of nose and ear. Oral cavity normal EYES: Pupils equal. Conjunctiva normal. NECK: JVD not raised. Mass not palpable. RESPIRATORY: Respiratory effort increased, fair air entry CARDIOVASCULAR: First and second sounds normal. No edema. ABDOMEN: Soft. Liver and spleen not palpable. No tenderness. No mass palpable. Some tenderness in both the groin. No bruising noted. PSYCHIATRY: Alert and oriented x3. Mood and affect anxious INVESTIGATIONS, reviewed in the clinical context: CT chest high-resolution resolution: No pulmonary fibrosis. Scattered groundglass opacity. August 07: White count 10.8 hemoglobin 10.1 potassium 3.8 creatinine 0.72 Venous Doppler for right lower extremity Doppler: Negative for DVT August 06: White count 10.8 hemoglobin 10.1 potassium 3.8 creatinine 0.72 Hepatitis B surface antigen nonreactive, hepatitis C IgG antibody nonreactive, HIV rapid nonreactive August 04: Procalcitonin 0.04 August 03: White count 10.7 hemoglobin 10 platelets 305 sodium 138 potassium 4.2 creatinine 0.6 Troponin I less than 0.012 proBNP 295 Influenza type A, type B, RSV, COVID-19: Not detected. Urine Legionella antigen negative Chest x-ray film personally reviewed by me-scattered infiltrates Chest CTA: Negative PE. Scattered airspace opacities groundglass appearance and consolidative changes. Lymph node is increased in size from September 21, 2023. Mild cardiomegaly. EKG tracing personally reviewed by me-sinus rhythm. Some ST segment depression. Assessment and plan: -Recurrent pneumonia. Patient's had 3 hospitalizations since May 2024. Variable duration. Patient yet again presents with fever cough sputum production. Blood cultures positive for Streptococcus [place], possibly contaminant. Repeat blood cultures pending Immunodeficiency panel: Unremarkable IV Zosyn [questionable rash] changed over to IV ceftriaxone-antibiotic discontinued Patient was seen by pulmonary and ID. Follow-up with Dr. Gray outpatient -Bilateral tenderness in both the groins at the access site for ablation June 07. See Dr. Vascular Dr. Galeas. Signed off. Doppler ultrasound negative for DVT -Sepsis with blood cultures growing cryptococcus [place]-felt to be possibly contaminant No further antibiotics -Paroxysmal atrial fibrillation and atrial tachycardia. Patient had ablation done on June 07. Rate uncontrolled Received IV amiodarone. Discharged on oral amiodarone... CORINNE with cardioversion done today. Lopressor 25 mg twice daily. Xarelto Patient to follow-up with her own legal word processor/skidway worker -Essential hypertension Toprol-XL -Obstructive sleep apnea Does not use CPAP -Hypothyroidism: Synthroid to continue -Morbid obesity BMI 41.2 Weight loss measures -GERD Protonix -Full code Disposition: Home Past Medical History Past Medical History: Atrial Fibrillation, Chest Pain / Angina, Heart Failure, GI Bleed, Hypertension, Rheumatoid Arthritis (RA), Sleep Apnea/CPAP/BIPAP, Thyroid Disorder Additional Past Medical History / Comment(s): History of atrial fibrillation post-ablation and cardioversions, recent hospitalization for GI bleeds related to a antral ulcer, anemia secondary to GI bleed, vertigo, liver lesion probably a meningioma and the patient will be having an outpatient MRI at a later stage, not currently using CPAP History of Any Multi-Drug Resistant Organisms: MRSA Date of last positivie culture/infection: 06/23/05 MDRO Source:: lt arm Past Surgical History: Appendectomy, Section, Coronary Bypass/CABG, Heart Catheterization, Hysterectomy, Joint Replacement, Orthopedic Surgery, Tubal Ligation Additional Past Surgical History / Comment(s): 7 KNEE SURGERIES= 0NE LEFT KNEE ARTHROSCOPY, and 5 RT KNEE ARTHROSCOPIES THEN TOTAL RT KNEE DONE & THEN TOTAL REVISION TO RT KNEE , PLACIDO. ACHILLES TENDON SURGERY- HAS SCREWS IN PLACIDO. HEELS, EYE SURGERY A CHILD(STRABISMUS), DENTAL IMPLANT BOTTOM LT., COLONOSCOPY, right shoulder sx x2 05/23/18 left thorancentesis. Pacemaker placed Feb 2024 Past Anesthesia/Blood Transfusion Reactions: Previous Problems w/ Anesthesia, Family History of Problems w/ Anesthesia, Postoperative Nausea & Vomiting (PONV) Additional Past Anesthesia/Blood Transfusion Reaction / Comment(s): PT & HER MOTHER HAVE HX PONV Past Psychological History: No Psychological Hx Reported Additional Psychological History / Comment(s): Pt resides with her spouse. She is independent. She uses no assistive device. She drives. Smoking Status: Never smoker Past Alcohol Use History: Rare Past Drug Use History: None Reported Plan - Discharge Summary Discharge Rx Participant: No New Discharge Prescriptions: New Metoprolol Tartrate [Lopressor] 50 mg PO BID #60 tab predniSONE 10 mg PO DAILY #30 tab Continue Rivaroxaban [Xarelto] 20 mg PO DAILY@1600 lisinopriL [Zestril] 5 mg PO DAILY Multivit-Min/Iron/Folic/Lutein [Centrum Silver Women Tablet] 1 tab PO DAILY Aspirin [Adult Low Dose Aspirin EC] 81 mg PO DAILY Potassium Chloride ER [K-Dur 20] 20 meq PO BID Furosemide [Lasix] 40 mg PO BID traZODone HCL [Desyrel] 50 mg PO HS PRN PRN Reason: sleep Rosuvastatin [Crestor] 10 mg PO HS Levothyroxine Sodium [Synthroid] 50 mcg PO SUTHFRSA Levothyroxine Sodium [Synthroid] 25 mcg PO MOTUWE Letrozole [Femara] 2.5 mg PO DAILY Pantoprazole [Protonix] 40 mg PO DAILY Clotrimazole/Betameth Cream [Lotrisone] 1 applic TOPICAL BID Changed Amiodarone [Cordarone] 200 mg PO BID #60 tab Discontinued Metoprolol Tartrate [Lopressor] 25 mg PO BID Discharge Medication List Rivaroxaban [Xarelto] 20 mg PO DAILY@1600 02/16/15 [History] Aspirin [Adult Low Dose Aspirin EC] 81 mg PO DAILY 09/11/20 [History] Multivit-Min/Iron/Folic/Lutein [Centrum Silver Women Tablet] 1 tab PO DAILY 09/11/20 [History] lisinopriL [Zestril] 5 mg PO DAILY 09/11/20 [History] Letrozole [Femara] 2.5 mg PO DAILY 09/16/23 [History] Levothyroxine Sodium [Synthroid] 25 mcg PO MOTUWE 09/16/23 [History] Levothyroxine Sodium [Synthroid] 50 mcg PO SUTHFRSA 09/16/23 [History] Pantoprazole [Protonix] 40 mg PO DAILY 09/16/23 [History] Rosuvastatin [Crestor] 10 mg PO HS 09/16/23 [History] Clotrimazole/Betameth Cream [Lotrisone] 1 applic TOPICAL BID 08/03/24 [History] Furosemide [Lasix] 40 mg PO BID 08/03/24 [History] Potassium Chloride ER [K-Dur 20] 20 meq PO BID 08/03/24 [History] traZODone HCL [Desyrel] 50 mg PO HS PRN 08/03/24 [History] Amiodarone [Cordarone] 200 mg PO BID #60 tab 08/09/24 [Rx] Metoprolol Tartrate [Lopressor] 50 mg PO BID #60 tab 08/09/24 [Rx] predniSONE 10 mg PO DAILY #30 tab 08/09/24 [Rx] Follow up Appointment(s)/Referral(s): José Riojas MD [STAFF PHYSICIAN] - 1 Week Jewel Santiago MD [Primary Care Provider] - 1-2 days Jocelyn Galeas DO [STAFF PHYSICIAN] - As Needed Judi Gray MD [STAFF PHYSICIAN] - 1 Week Patient Instructions/Handouts: A-fib (Atrial Fibrillation) (DC) Activity/Diet/Wound Care/Special Instructions: no antibiotics Discharge Disposition: HOME SELF-CARE
--- NOTE | 2024-08-09 23:15 | P.PN ---
Subjective Progress Note Date: 08/08/24 Principal diagnosis: Reason for follow-up is a positive blood culture Patient is a 69-year-old female with a past medical history significant for atrial fibrillation heart failure hypertension rheumatoid arthritis sleep apnea patient did have pacemaker placement in 2023 and apparently the patient did have a cardiac ablation procedure subsequently admission to [facility] followed by [address] [facility] apparently has been treated for possible pneumonia patient did have a positive blood culture at [address] which was positive for coagulase-negative staph and Streptococcus viridans not being admitted the hospital for increasing shortness of breath ID consulted because of positive blood culture. On today's evaluation that is 08/08/2024,the patient remains to be afebrile, patient is on 3 L nasal cannula supplemental oxygen, patient denies any worsening shortness of breath no chest pain and cough is decreased intensity , patient denies having any nausea or vomiting, no abdominal pain and no diarrhea has been reported Blood culture repeat has been negative so far Objective - Vital Signs Vital signs: Vital Signs Temp 98.2 F 08/08/24 12:00 Pulse 114 H 08/08/24 12:00 Resp 20 08/08/24 12:00 BP 144/78 08/08/24 12:00 Pulse Ox 99 08/08/24 12:00 FiO2 Intake & Output 08/07/24 08/08/24 08/08/24 18:59 06:59 18:59 Intake Total 651.719 2823 Balance 192.380 8148 Weight 110.4 kg 110.4 kg Intake: Intake, IV Titration 226.116 Amount Amiodarone 450 mg In 226.116 Dextrose 5% in Water 250 ml @ 0.5 MG/MIN 16.667 mls/hr IV .Q15H [facility] Rx#: [id number] Oral 1000 Other: Voiding Method Toilet Toilet Toilet # Voids 3 4 # Bowel Movements 1 - Exam GENERAL DESCRIPTION: An elderly female up in bed in no distress RESPIRATORY SYSTEM: Unlabored breathing , coarse breath sounds bilaterally HEART: S1 S2 regular rate and rhythm , ABDOMEN: Soft , no tenderness EXTREMITIES: No edema feet - Labs CBC & Chem 7: 08/06/24 10:05 08/06/24 10:05 Labs: Microbiology - Last 24 Hours (Table) 08/05/24 14:53 Blood Culture - Preliminary Blood Assessment and Plan (1) Bacteremia Current Visit: Yes Status: Acute Code(s): R78.81 - BACTEREMIA SNOMED Code(s): 7374558 Plan: 1patient with the streptococcal bacteremia and this patient apparently did have similar symptoms and admission at [facility] patient also have a bacteremia however she is not clear about the type of blood infection, we did obtain records from [facility] positive blood culture was coagulase-negative staph and strep viridans only 1 set of blood culture were done 2-blood culture has been repeated which are currently pending and echocardiogram did not show any vegetation, patient have a CT of the chest some groundglass opacity no consolidation 3-patient to continue with Rocephin 2 g daily however blood culture repeat has been negative so far we will consider discontinuation of antibiotics Dictation was produced using [employer] dictation software. please excuse any grammatical, word or spelling errors.
--- NOTE | 2024-08-09 23:15 | P.PN ---
Subjective Progress Note Date: 08/07/24 Principal diagnosis: Reason for follow-up is a positive blood culture Patient is a 69-year-old female with a past medical history significant for atrial fibrillation heart failure hypertension rheumatoid arthritis sleep apnea patient did have pacemaker placement in 2023 and apparently the patient did have a cardiac ablation procedure subsequently admission to [facility] followed by [facility] apparently has been treated for possible pneumonia patient did have a positive blood culture at [facility] which was positive for coagulase-negative staph and Streptococcus viridans not being admitted the hospital for increasing shortness of breath ID consulted because of positive blood culture. On today's evaluation that is 08/07/2024,the patient denies any fever or any chills, patient is breathing slightly comfortably on 3 L current oxygen the patient denies chest pain and no worsening cough, patient denies abdominal pain, no nausea vomiting or diarrhea. Patient denies any lab draw blood culture repeat currently pending Objective - Vital Signs Vital signs: Vital Signs Temp 98.2 F 08/07/24 07:34 Pulse 123 H 08/07/24 07:34 Resp 17 08/07/24 07:34 BP 131/82 08/07/24 07:34 Pulse Ox 99 08/07/24 07:34 FiO2 Intake & Output 08/06/24 08/07/24 08/07/24 18:59 06:59 18:59 Other: Voiding Method Toilet Toilet # Voids 3 - Exam GENERAL DESCRIPTION: An elderly female up in bed in no distress RESPIRATORY SYSTEM: Unlabored breathing , coarse breath sounds bilaterally HEART: S1 S2 regular rate and rhythm , ABDOMEN: Soft , no tenderness EXTREMITIES: No edema feet - Labs CBC & Chem 7: 08/06/24 10:05 08/06/24 10:05 Labs: Abnormal Lab Results - Last 24 Hours (Table) 08/04/24 08/06/24 08/07/24 Range/Units 13:27 10:05 09:51 Glucose 116 H (74-99) mg/dL POC Glucose (mg/dL) 145 H (70-110) mg/dL CD4/CD8 Ratio 4.6 H (1.0-3.7) Microbiology - Last 24 Hours (Table) 08/05/24 14:53 Blood Culture - Preliminary Blood 08/03/24 11:40 Blood Culture Gram Stain - Final Blood Blood Culture - Final Streptococcus thermophilus Molecular ID Assessment and Plan (1) Bacteremia Current Visit: Yes Status: Acute Code(s): R78.81 - BACTEREMIA SNOMED Cod e(s): 9988059 Plan: 1patient with the streptococcal bacteremia and this patient apparently did have similar symptoms and admission at [facility] patient also have a bacteremia however she is not clear about the type of blood infection, we did obtain records from [facility] positive blood culture was coagulase-negative staph and strep viridans only 1 set of blood culture were done 2-blood culture has been repeated which are currently pending and echocardiogram did not show any vegetation 3-patient to continue with Rocephin 2 g daily while waiting for repeat culture to finalize Dictation was produced using [employer] dictation software. please excuse any grammatical, word or spelling errors. Time with Patient: Less than 30
== END 2024-08-09 13:35 | disposition home or self-care (01) | DRG 871 ==
LOC: EC 11:07 → 4SSUR 14:39 → 2SICU 08-07 09:27
PROVIDERS: ADMIT Hospitalist; ATTEND Hospitalist
PROC: B246ZZ4 Ultrasonography of Right and Left Heart, Transesophageal (ICD-10-PCS; 2024-08-09)
PROC: 5A2204Z Restoration of Cardiac Rhythm, Single (ICD-10-PCS; principal; 2024-08-09 07:15)
DX: A40.8 Other streptococcal sepsis (principal); J18.9 Pneumonia, unspecified organism; J96.01 Acute respiratory failure with hypoxia; Z68.41 Body mass index [BMI] 40.0-44.9, adult; I47.19 Other supraventricular tachycardia; I48.92 Unspecified atrial flutter; E03.9 Hypothyroidism, unspecified; Z79.890 Hormone replacement therapy; E66.01 Morbid (severe) obesity due to excess calories; E78.5 Hyperlipidemia, unspecified; G47.33 Obstructive sleep apnea (adult) (pediatric); D64.9 Anemia, unspecified; I11.0 Hypertensive heart disease with heart failure; I25.10 Atherosclerotic heart disease of native coronary artery without angina pectoris; I08.1 Rheumatic disorders of both mitral and tricuspid valves; I50.9 Heart failure, unspecified; K21.9 Gastro-esophageal reflux disease without esophagitis; M06.9 Rheumatoid arthritis, unspecified; Z79.01 Long term (current) use of anticoagulants; Z95.1 Presence of aortocoronary bypass graft; Z95.0 Presence of cardiac pacemaker; Z87.01 Personal history of pneumonia (recurrent); Z11.52 Encounter for screening for COVID-19; I48.0 Paroxysmal atrial fibrillation; I70.0 Atherosclerosis of aorta; Z79.811 Long term (current) use of aromatase inhibitors; Z79.82 Long term (current) use of aspirin; Z79.899 Other long term (current) drug therapy; Z85.3 Personal history of malignant neoplasm of breast; Z86.011 Personal history of benign neoplasm of the brain; Z87.11 Personal history of peptic ulcer disease; Z90.710 Acquired absence of both cervix and uterus; Z98.51 Tubal ligation status; Z86.14 Personal history of Methicillin resistant Staphylococcus aureus infection
CPT/HCPCS: 36415; 71045; 71046; 71250; 71275; 80048; 80053; 83605; 83735; 83880; 84145; 84484; 85025; 85379; 85610; 85730; 86355; 86357; 86359; 86360; 86701; 86803; 87040; 87340; 87449; 87636; 92960; 93005; 93306; 93312; 93320; 93325; 96361; 96365; 99285

== ENCOUNTER → 2024-11-22 | Outpatient (CLI) | payer MEDICARE ==
[2024-11-22 11:41] LABS: African American GFR (CKD) >90 (>60 ml/min/1.73 sqM); Blood Urea Nitrogen 18 mg/dL (7-17); Non-African American GFR(CKD) >90 (>60 ml/min/1.73 sqM)
--- NOTE | 2024-11-23 14:53 | CT ---
EXAMINATION TYPE: CT chest w con DATE OF EXAM: 11/22/2024 12:43 PM COMPARISON: 08/07/[address] chest 09/21/2023 CLINICAL INDICATION: Female, 69 years old with history of J84.9 INTERSTITIAL PULMONARY DISEASE, UNSPE CIFIED; PHH, HX PNEUMONIA INTERSTIAL LUNG DISEASE TECHNIQUE: CT of the chest after IV contrast. Coronal and sagittal reconstructions performed. Contrast used:100 ml mL of Isovue [address] DLP: 705 mGycm, Automated exposure control for dose reduction was used. FINDINGS: The heart is borderline enlarged pericardial effusion. Median sternotomy wires. Left anterior chest w all pacemaker generator with right atrial and ventricular leads. Suspect previous mitral annuloplasty ring. Aorta normal caliber with a short vessel branching anatomy. A few prominent mediastinal lymph nodes measuring up to 1.3 cm precarinal unchanged from to 09/21/2023 suggesting a benign etiology. 9 mm AP window lymph node unchanged. Prominent 1.7 cm right hilar lung also unchanged. Borderline caliber main right and left pulmonary arteries at 2.5 cm may reflect underlying pulmonary arterial hypertension. Lungs show mosaic attenuation with moderate diffuse bronchial wall thickening. Some of these changes, increased from the 09/21/2023 exam, may reflect residual groundglass from the more extensive findings on 08/08/2024. 5 mm medial right middle lobe pulmonary nodule unchanged for over a year suggesting a benign etiology . 4 mm anteromedial left middle pulmonary nodule, unchanged as well. No new consolidation or pleural effusion. Low attenuation of the hepatic parenchyma suggesting fatty infiltration of the liver. Peripherally enhancing 2.4 cm lesion anterior left liver lobe unchanged from 09/21/2023 suggesting a b enign hepatic hemangioma. Small hilar splenule. Bones: DISH mid and lower thoracic spine. Accentuated mid thoracic kyphosis. Disc osteophyte complex T12-L1 and L1-L2 contributes to at least mild spinal canal stenosis. IMPRESSION: 1. There is residual groundglass change throughout the lungs, though the appearance is considerably i mproved from 08/08/2024. Still greater than on the patient's older 09/21/2023 exam. Suspect underlying mosaic attenuation from small airways disease but with probable residual inflammatory change. There c ould be concurrent NSIP or DIP pattern of lung injury. Again, there has been improvement compared to 08/08/2024 but changes are still increased from 2023. Consider pulmonary medicine evaluation if no est ablished diagnosis. 2. A few borderline and mildly enlarged external hilar nodes remain unchanged reactive/post inflammat ory etiology. [facility], , 11/23/2024 2:51 PM
== END | disposition home or self-care (01) ==
LOC: RADCTMAIN 10:52
PROVIDERS: ATTEND Internal Medicine Critical Care Medicine
DX: J84.9 Interstitial pulmonary disease, unspecified (principal); R59.0 Localized enlarged lymph nodes; R91.1 Solitary pulmonary nodule
CPT/HCPCS: 82565; 84520; 71260; Q9967